=== PATIENT | female | born 1940 | race Caucasian/White ===

== ENCOUNTER 2020-09-02 11:58 | Outpatient (NON) | payer MEDICARE, MEDICAID, SELFPAY ==
[2020-09-02 13:27] LABS: BNP 120 pg/mL (0-100)
[2020-09-02 13:41] LABS: Alanine Aminotransferase 12 U/L (14-59); Albumin Level 3.4 g/dL (3.4-5.0); Alkaline Phosphatase 110 U/L (46-116); Anion Gap 9 mmol/L (8-16); Aspartate Amino Transferase 20 U/L (15-37); Bilirubin,Total 0.3 mg/dL (0.00-1.00); Blood Urea Nitrogen 15 mg/dL (7-18); Calcium 8.7 mg/dL (8.5-10.1); Carbon Dioxide 25 mmol/L (21-32); Chloride 104 mmol/L (98-108); Estimated Glomerular Filt Rate 53; Glucose 91 mg/dL (70-99); Osmolality Calculated 286 mOsm/kg (285-295); Potassium 4.4 mmol/L (3.5-5.1); Sodium 138 mmol/L (136-145); Total Protein 7.2 g/dL (6.4-8.2)
== END 2020-09-02 11:59 ==
LOC: CHSLAB 12:07
PROVIDERS: Visit Provider Internal Medicine
DX: I50.9 Heart failure, unspecified (principal)
CPT/HCPCS: 36415; 80053; 83880

== ENCOUNTER 2021-02-21 08:58 | Outpatient (NON) | payer MEDICARE, SELFPAY ==
[2021-02-21 09:23] LABS: Anion Gap 15 mmol/L (8-16); Blood Urea Nitrogen 18 mg/dL (7-18); Calcium 8.4 mg/dL (8.5-10.1); Carbon Dioxide 24 mmol/L (21-32); Chloride 102 mmol/L (98-108); Estimated Glomerular Filt Rate 45; Glucose 136 mg/dL (70-99); Osmolality Calculated 295 mOsm/kg (285-295); Potassium 3.9 mmol/L (3.5-5.1); Sodium 141 mmol/L (136-145)
== END 2021-02-21 08:59 | disposition home or self-care (01) ==
LOC: CHSLAB 09:00
PROVIDERS: Visit Provider Specialist
DX: I42.8 Other cardiomyopathies (principal); I10 Essential (primary) hypertension; I50.22 Chronic systolic (congestive) heart failure; R07.89 Other chest pain; R06.02 Shortness of breath
CPT/HCPCS: 36415; 80048

== ENCOUNTER 2021-03-02 11:41 | Outpatient (NON) | payer MEDICARE, SELFPAY ==
[2021-03-02 13:03] LABS: Basophils Absolute Auto 0.04 K/mm3 (0.00-0.10); Basophils Percent Auto 0.5 % (0.0-1.0); Eosinophils Absolute Auto 0.23 K/mm3 (0.02-0.50); Eosinophils Percent Auto 2.7 % (1.0-6.0); Hematocrit 42.6 % (35.0-42.0); Immature Granulocyte Absolute 0.03 K/mm3 (0.00-0.00); Immature Granulocyte Percent A 0.4 % (0.0-0.0); Lymphocytes Absolute Auto 1.11 K/mm3 (1.10-4.50); Lymphocytes Percent Auto 13.1 % (18.0-42.0); Mean Corpuscular HGB Conc 32.9 g/dL (32.0-36.0); Mean Corpuscular Hemoglobin 29.2 pg (27.0-31.0); Mean Corpuscular Volume 88.8 fL (78.0-102.0); Mean Platelet Volume 11.1 fl (9.2-11.8); Monocytes Absolute Auto 1.07 K/mm3 (0.10-0.90); Monocytes Percent Auto 12.6 % (2.0-11.0); Neutrophils Percent Auto 70.7 % (50.0-70.0); Platelet Count Result 256 K/mm3 (150-420); Red Cell Distribution Width 14.4 % (11.6-14.4); White Blood Count 8.5 K/mm3 (4.8-10.8)
[2021-03-02 13:26] LABS: Alanine Aminotransferase 16 U/L (14-59); Albumin Level 3.4 g/dL (3.4-5.0); Alkaline Phosphatase 103 U/L (46-116); Anion Gap 13 mmol/L (8-16); Aspartate Amino Transferase 19 U/L (15-37); Bilirubin,Total 0.4 mg/dL (0.00-1.00); Blood Urea Nitrogen 21 mg/dL (7-18); Calcium 9.1 mg/dL (8.5-10.1); Carbon Dioxide 23 mmol/L (21-32); Chloride 105 mmol/L (98-108); Estimated Glomerular Filt Rate 53; Glucose 86 mg/dL (70-99); Magnesium 2.3 mg/dL (1.8-2.4); NT Pro B Type Natriuretic Pept 1533 pg/mL (0-450); Osmolality Calculated 294 mOsm/kg (285-295); Potassium 4.4 mmol/L (3.5-5.1); Sodium 141 mmol/L (136-145)
== END 2021-03-02 11:42 | disposition home or self-care (01) ==
LOC: CHSLAB 11:43
PROVIDERS: Visit Provider Internal Medicine
DX: I50.9 Heart failure, unspecified (principal)
CPT/HCPCS: 36415; 80053; 83735; 83880; 85025

== ENCOUNTER 2021-03-14 11:09 | Outpatient (NON) | payer MEDICARE, SELFPAY ==
[2021-03-14 11:26] LABS: Basophils Absolute Auto 0.01 K/mm3 (0.00-0.10); Basophils Percent Auto 0.1 % (0.0-1.0); Eosinophils Absolute Auto 0.16 K/mm3 (0.02-0.50); Eosinophils Percent Auto 2.3 % (1.0-6.0); Hematocrit 42.9 % (35.0-42.0); Hemoglobin 13.9 g/dL (11.7-13.8); Immature Granulocyte Absolute 0.02 K/mm3 (0.00-0.00); Immature Granulocyte Percent A 0.3 % (0.0-0.0); Lymphocytes Absolute Auto 0.56 K/mm3 (1.10-4.50); Lymphocytes Percent Auto 8.1 % (18.0-42.0); Mean Corpuscular HGB Conc 32.4 g/dL (32.0-36.0); Mean Corpuscular Hemoglobin 29.1 pg (27.0-31.0); Mean Corpuscular Volume 89.7 fL (78.0-102.0); Mean Platelet Volume 10.5 fl (9.2-11.8); Monocytes Absolute Auto 0.58 K/mm3 (0.10-0.90); Monocytes Percent Auto 8.4 % (2.0-11.0); Neutrophils Absolute Auto 5.6 K/mm3 (1.7-7.2); Neutrophils Percent Auto 80.8 % (50.0-70.0); Platelet Count Result 219 K/mm3 (150-420); Red Blood Count 4.78 M/mm3 (4.20-5.40); Red Cell Distribution Width 14.1 % (11.6-14.4); White Blood Count 6.9 K/mm3 (4.8-10.8)
[2021-03-14 11:32] LABS: Prothrombin Time 10.3 Seconds (9.50-12.10)
[2021-03-14 11:38] LABS: Anion Gap 14 mmol/L (8-16); Blood Urea Nitrogen 15 mg/dL (7-18); Calcium 8.6 mg/dL (8.5-10.1); Carbon Dioxide 25 mmol/L (21-32); Chloride 102 mmol/L (98-108); Estimated Glomerular Filt Rate 57; Glucose 89 mg/dL (70-99); Osmolality Calculated 291 mOsm/kg (285-295); Potassium 3.9 mmol/L (3.5-5.1); Sodium 141 mmol/L (136-145)
== END 2021-03-14 11:10 | disposition home or self-care (01) ==
LOC: CHSLAB 11:12
PROVIDERS: Visit Provider Specialist
DX: I50.22 Chronic systolic (congestive) heart failure (principal); R94.39 Abnormal result of other cardiovascular function study; I51.9 Heart disease, unspecified; R07.89 Other chest pain; R06.02 Shortness of breath; Z95.810 Presence of automatic (implantable) cardiac defibrillator; I10 Essential (primary) hypertension
CPT/HCPCS: 36415; 80048; 83735; 85025; 85610

== ENCOUNTER 2021-04-03 10:00 | Outpatient (NON) | payer MEDICARE, SELFPAY ==
[2021-04-03 12:46] LABS: Anion Gap 11 mmol/L (8-16); Blood Urea Nitrogen 22 mg/dL (7-18); Calcium 8.5 mg/dL (8.5-10.1); Carbon Dioxide 26 mmol/L (21-32); Chloride 104 mmol/L (98-108); Estimated Glomerular Filt Rate 49; Glucose 92 mg/dL (70-99); Osmolality Calculated 295 mOsm/kg (285-295); Potassium 4.5 mmol/L (3.5-5.1); Sodium 141 mmol/L (136-145)
== END 2021-04-03 10:01 | disposition home or self-care (01) ==
LOC: CHSLAB 10:02
PROVIDERS: Visit Provider Internal Medicine Cardiovascular Disease
DX: Z79.899 Other long term (current) drug therapy (principal)
CPT/HCPCS: 36415; 80048

== ENCOUNTER 2021-04-12 08:45 | Outpatient (NON) | payer MEDICARE, SELFPAY ==
[2021-04-12 09:45] LABS: Anion Gap 10 mmol/L (8-16); Blood Urea Nitrogen 19 mg/dL (7-18); Calcium 8.6 mg/dL (8.5-10.1); Carbon Dioxide 25 mmol/L (21-32); Chloride 104 mmol/L (98-108); Estimated Glomerular Filt Rate 48; Glucose 95 mg/dL (70-99); Osmolality Calculated 290 mOsm/kg (285-295); Potassium 4.7 mmol/L (3.5-5.1); Sodium 139 mmol/L (136-145)
== END 2021-04-12 08:46 | disposition home or self-care (01) ==
LOC: CHSLAB 08:47
PROVIDERS: Visit Provider Internal Medicine Cardiovascular Disease
DX: I50.22 Chronic systolic (congestive) heart failure (principal); I42.8 Other cardiomyopathies
CPT/HCPCS: 36415; 80048

== ENCOUNTER 2021-10-16 13:20 | Outpatient (NON) | payer MEDICARE, SELFPAY ==
[2021-10-16 14:04] LABS: Basophils Absolute Auto 0.04 K/mm3 (0.00-0.10); Basophils Percent Auto 0.6 % (0.0-1.0); Eosinophils Absolute Auto 0.22 K/mm3 (0.02-0.50); Eosinophils Percent Auto 3.1 % (1.0-6.0); Hematocrit 46.2 % (35.0-42.0); Hemoglobin 15.1 g/dL (11.7-13.8); Immature Granulocyte Absolute 0.02 K/mm3 (0.00-0.00); Immature Granulocyte Percent A 0.3 % (0.0-0.0); Lymphocytes Absolute Auto 1.33 K/mm3 (1.10-4.50); Lymphocytes Percent Auto 18.9 % (18.0-42.0); Mean Corpuscular HGB Conc 32.7 g/dL (32.0-36.0); Mean Corpuscular Hemoglobin 30.6 pg (27.0-31.0); Mean Corpuscular Volume 93.5 fL (78.0-102.0); Mean Platelet Volume 11.6 fl (9.2-11.8); Monocytes Percent Auto 12.8 % (2.0-11.0); Neutrophils Absolute Auto 4.5 K/mm3 (1.7-7.2); Neutrophils Percent Auto 64.3 % (50.0-70.0); Platelet Count Result 231 K/mm3 (150-420); Red Blood Count 4.94 M/mm3 (4.20-5.40); Red Cell Distribution Width 13.6 % (11.6-14.4); White Blood Count 7.1 K/mm3 (4.8-10.8)
[2021-10-16 14:29] LABS: Alanine Aminotransferase 16 U/L (14-59); Albumin Level 3.6 g/dL (3.4-5.0); Alkaline Phosphatase 98 U/L (46-116); Anion Gap 12 mmol/L (8-16); Aspartate Amino Transferase 18 U/L (15-37); Bilirubin,Total 0.3 mg/dL (0.00-1.00); Blood Urea Nitrogen 19 mg/dL (7-18); Calcium 8.8 mg/dL (8.5-10.1); Carbon Dioxide 25 mmol/L (21-32); Chloride 104 mmol/L (98-108); Cholesterol 177 mg/dL (0-200); Estimated Glomerular Filt Rate 42; Glucose 102 mg/dL (70-99); HDL Direct 65 mg/dL (40-60); LDL Cholesterol Calculated 78 mg/dL (<130); NT Pro B Type Natriuretic Pept 1798 pg/mL (0-450); Osmolality Calculated 294 mOsm/kg (285-295); Potassium 4.5 mmol/L (3.5-5.1); Sodium 141 mmol/L (136-145); Thyroid Stimulating Hormone 1.72 uIU/mL (0.36-3.74); Total Protein 7.4 g/dL (6.4-8.2); Triglycerides 168 mg/dL (0-150)
== END 2021-10-16 13:21 | disposition home or self-care (01) ==
LOC: CHSLAB 13:21
PROVIDERS: Visit Provider Internal Medicine
DX: I50.9 Heart failure, unspecified (principal); I25.10 Atherosclerotic heart disease of native coronary artery without angina pectoris
CPT/HCPCS: 36415; 80053; 80061; 83880; 84443; 85025

== ENCOUNTER 2022-02-05 09:18 | Outpatient (NON) | payer MEDICARE, SELFPAY ==
[2022-02-05 09:38] LABS: Basophils Absolute Auto 0.05 K/mm3 (0.00-0.10); Basophils Percent Auto 0.8 % (0.0-1.0); Eosinophils Percent Auto 5.1 % (1.0-6.0); Hemoglobin 13.1 g/dL (11.7-13.8); Immature Granulocyte Absolute 0.01 K/mm3 (0.00-0.00); Immature Granulocyte Percent A 0.2 % (0.0-0.0); Lymphocytes Percent Auto 15.2 % (18.0-42.0); Mean Corpuscular HGB Conc 32.8 g/dL (32.0-36.0); Mean Corpuscular Hemoglobin 30.3 pg (27.0-31.0); Mean Corpuscular Volume 92.6 fL (78.0-102.0); Mean Platelet Volume 11.1 fl (9.2-11.8); Monocytes Absolute Auto 0.62 K/mm3 (0.10-0.90); Monocytes Percent Auto 10.4 % (2.0-11.0); Neutrophils Absolute Auto 4.1 K/mm3 (1.7-7.2); Neutrophils Percent Auto 68.3 % (50.0-70.0); Platelet Count Result 199 K/mm3 (150-420); Red Blood Count 4.32 M/mm3 (4.20-5.40); Red Cell Distribution Width 13.6 % (11.6-14.4); White Blood Count 5.9 K/mm3 (4.8-10.8)
[2022-02-05 09:55] LABS: Alanine Aminotransferase 12 U/L (14-59); Albumin Level 3.2 g/dL (3.4-5.0); Alkaline Phosphatase 90 U/L (46-116); Anion Gap 9 mmol/L (8-16); Aspartate Amino Transferase 18 U/L (15-37); Bilirubin,Total 0.5 mg/dL (0.00-1.00); Blood Urea Nitrogen 14 mg/dL (7-18); Calcium 8.3 mg/dL (8.5-10.1); Carbon Dioxide 23 mmol/L (21-32); Chloride 107 mmol/L (98-108); Cholesterol 130 mg/dL (0-200); Estimated Glomerular Filt Rate 48; Glucose 94 mg/dL (70-99); HDL Direct 51 mg/dL (40-60); LDL Cholesterol Calculated 58 mg/dL (<130); Magnesium 2.2 mg/dL (1.8-2.4); NT Pro B Type Natriuretic Pept 1707 pg/mL (0-450); Osmolality Calculated 288 mOsm/kg (285-295); Potassium 3.8 mmol/L (3.5-5.1); Sodium 139 mmol/L (136-145); Total Protein 6.4 g/dL (6.4-8.2); Triglycerides 106 mg/dL (0-150)
== END 2022-02-05 09:19 | disposition home or self-care (01) ==
LOC: CHSLAB 09:20
PROVIDERS: PCP Internal Medicine; Visit Provider Internal Medicine
DX: I25.10 Atherosclerotic heart disease of native coronary artery without angina pectoris (principal); I50.9 Heart failure, unspecified; Z79.899 Other long term (current) drug therapy
CPT/HCPCS: 36415; 80053; 80061; 83735; 83880; 85025

== ENCOUNTER 2022-04-20 10:35 | Outpatient (NON) | payer MEDICARE, SELFPAY ==
[2022-04-20 11:21] LABS: Basophils Absolute Auto 0.03 K/mm3 (0.00-0.10); Basophils Percent Auto 0.3 % (0.0-1.0); Eosinophils Absolute Auto 0.26 K/mm3 (0.02-0.50); Eosinophils Percent Auto 2.7 % (1.0-6.0); Hematocrit 46.1 % (35.0-42.0); Hemoglobin 14.7 g/dL (11.7-13.8); Immature Granulocyte Absolute 0.06 K/mm3 (0.00-0.00); Immature Granulocyte Percent A 0.6 % (0.0-0.0); Lymphocytes Absolute Auto 2.36 K/mm3 (1.10-4.50); Lymphocytes Percent Auto 24.4 % (18.0-42.0); Mean Corpuscular HGB Conc 31.9 g/dL (32.0-36.0); Mean Corpuscular Hemoglobin 29.9 pg (27.0-31.0); Mean Corpuscular Volume 93.9 fL (78.0-102.0); Mean Platelet Volume 11.2 fl (9.2-11.8); Monocytes Absolute Auto 0.98 K/mm3 (0.10-0.90); Monocytes Percent Auto 10.1 % (2.0-11.0); Neutrophils Percent Auto 61.9 % (50.0-70.0); Platelet Count Result 241 K/mm3 (150-420); Red Blood Count 4.91 M/mm3 (4.20-5.40); Red Cell Distribution Width 14.1 % (11.6-14.4); White Blood Count 9.7 K/mm3 (4.8-10.8)
[2022-04-20 11:34] LABS: Alanine Aminotransferase 15 U/L (14-59); Albumin Level 3.2 g/dL (3.4-5.0); Alkaline Phosphatase 88 U/L (46-116); Anion Gap 12 mmol/L (8-16); Aspartate Amino Transferase 16 U/L (15-37); Bilirubin,Total 0.6 mg/dL (0.00-1.00); Blood Urea Nitrogen 27 mg/dL (7-18); Calcium 8.7 mg/dL (8.5-10.1); Carbon Dioxide 25 mmol/L (21-32); Chloride 106 mmol/L (98-108); Cholesterol 174 mg/dL (0-200); Estimated Glomerular Filt Rate 47; Glucose 84 mg/dL (70-99); HDL Direct 68 mg/dL (40-60); LDL Cholesterol Calculated 79 mg/dL (<130); Osmolality Calculated 300 mOsm/kg (285-295); Potassium 4.3 mmol/L (3.5-5.1); Sodium 143 mmol/L (136-145); Total Protein 6.3 g/dL (6.4-8.2); Triglycerides 133 mg/dL (0-150)
[2022-04-25 12:33] LABS: Vitamin D 25 Hydroxy 23 ng/mL (30-100)
== END 2022-04-20 10:36 | disposition home or self-care (01) ==
PROVIDERS: Visit Provider Internal Medicine Hematology & Oncology
DX: C50.919 Malignant neoplasm of unspecified site of unspecified female breast (principal); Z79.899 Other long term (current) drug therapy
CPT/HCPCS: 36415; 80053; 80061; 82306; 85025

== ENCOUNTER 2022-05-10 09:33 | Outpatient (NON) | payer MEDICARE, SELFPAY ==
[2022-05-10 09:55] LABS: Basophils Absolute Auto 0.07 K/mm3 (0.00-0.10); Basophils Percent Auto 1.3 % (0.0-1.0); Eosinophils Absolute Auto 0.24 K/mm3 (0.02-0.50); Eosinophils Percent Auto 4.5 % (1.0-6.0); Hematocrit 41.4 % (35.0-42.0); Immature Granulocyte Absolute 0.02 K/mm3 (0.00-0.00); Immature Granulocyte Percent A 0.4 % (0.0-0.0); Lymphocytes Absolute Auto 0.99 K/mm3 (1.10-4.50); Lymphocytes Percent Auto 18.5 % (18.0-42.0); Mean Corpuscular HGB Conc 31.4 g/dL (32.0-36.0); Mean Corpuscular Hemoglobin 29.5 pg (27.0-31.0); Mean Corpuscular Volume 94.1 fL (78.0-102.0); Mean Platelet Volume 11.3 fl (9.2-11.8); Monocytes Absolute Auto 0.66 K/mm3 (0.10-0.90); Monocytes Percent Auto 12.3 % (2.0-11.0); Neutrophils Absolute Auto 3.4 K/mm3 (1.7-7.2); Platelet Count Result 295 K/mm3 (150-420); Red Cell Distribution Width 13.7 % (11.6-14.4); White Blood Count 5.4 K/mm3 (4.8-10.8)
[2022-05-10 10:24] LABS: Alanine Aminotransferase 14 U/L (14-59); Albumin Level 3.1 g/dL (3.4-5.0); Alkaline Phosphatase 87 U/L (46-116); Anion Gap 10 mmol/L (8-16); Aspartate Amino Transferase 20 U/L (15-37); Bilirubin,Total 0.5 mg/dL (0.00-1.00); Blood Urea Nitrogen 15 mg/dL (7-18); Calcium 8.3 mg/dL (8.5-10.1); Carbon Dioxide 26 mmol/L (21-32); Chloride 105 mmol/L (98-108); Estimated Glomerular Filt Rate 53; Glucose 120 mg/dL (70-99); NT Pro B Type Natriuretic Pept 1975 pg/mL (0-450); Osmolality Calculated 293 mOsm/kg (285-295); Potassium 3.8 mmol/L (3.5-5.1); Sodium 141 mmol/L (136-145); Total Protein 5.9 g/dL (6.4-8.2)
== END 2022-05-10 09:34 | disposition home or self-care (01) ==
LOC: CHSLAB 09:35
PROVIDERS: Visit Provider Internal Medicine
DX: I50.9 Heart failure, unspecified (principal)
CPT/HCPCS: 80053; 83735; 83880; 85025

== ENCOUNTER 2022-05-18 09:12 | Outpatient (NON) | payer MEDICARE, SELFPAY ==
[2022-05-18 09:38] LABS: Alanine Aminotransferase 12 U/L (14-59); Albumin Level 3.2 g/dL (3.4-5.0); Alkaline Phosphatase 92 U/L (46-116); Anion Gap 11 mmol/L (8-16); Aspartate Amino Transferase 18 U/L (15-37); Bilirubin,Total 0.6 mg/dL (0.00-1.00); Blood Urea Nitrogen 13 mg/dL (7-18); Calcium 8.5 mg/dL (8.5-10.1); Carbon Dioxide 24 mmol/L (21-32); Chloride 107 mmol/L (98-108); Estimated Glomerular Filt Rate 50; Glucose 103 mg/dL (70-99); NT Pro B Type Natriuretic Pept 2434 pg/mL (0-450); Osmolality Calculated 294 mOsm/kg (285-295); Potassium 4.1 mmol/L (3.5-5.1); Sodium 142 mmol/L (136-145); Total Protein 6.1 g/dL (6.4-8.2)
== END 2022-05-18 09:13 | disposition home or self-care (01) ==
LOC: CHSLAB 09:13
PROVIDERS: Visit Provider Internal Medicine
DX: I50.9 Heart failure, unspecified (principal)
CPT/HCPCS: 80053; 83880

== ENCOUNTER 2022-05-25 11:50 | Outpatient (NON) | payer MEDICARE, SELFPAY ==
[2022-05-25 12:33] LABS: Alanine Aminotransferase 14 U/L (14-59); Albumin Level 3.3 g/dL (3.4-5.0); Alkaline Phosphatase 95 U/L (46-116); Anion Gap 10 mmol/L (8-16); Aspartate Amino Transferase 20 U/L (15-37); Bilirubin,Total 0.8 mg/dL (0.00-1.00); Blood Urea Nitrogen 11 mg/dL (7-18); Calcium 8.5 mg/dL (8.5-10.1); Carbon Dioxide 24 mmol/L (21-32); Chloride 109 mmol/L (98-108); Estimated Glomerular Filt Rate 55; Glucose 100 mg/dL (70-99); NT Pro B Type Natriuretic Pept 6250 pg/mL (0-450); Osmolality Calculated 295 mOsm/kg (285-295); Potassium 4.8 mmol/L (3.5-5.1); Sodium 143 mmol/L (136-145); Total Protein 6.2 g/dL (6.4-8.2)
== END 2022-05-25 11:51 | disposition home or self-care (01) ==
LOC: CHSLAB 11:53
PROVIDERS: PCP Internal Medicine; Visit Provider Internal Medicine
DX: I50.9 Heart failure, unspecified (principal)
CPT/HCPCS: 80053; 83880

== ENCOUNTER 2022-06-06 09:39 | Outpatient (NON) | payer MEDICARE, SELFPAY ==
[2022-06-06 10:30] LABS: Alanine Aminotransferase 13 U/L (14-59); Albumin Level 3.3 g/dL (3.4-5.0); Alkaline Phosphatase 90 U/L (46-116); Anion Gap 10 mmol/L (8-16); Aspartate Amino Transferase 21 U/L (15-37); Bilirubin,Total 0.7 mg/dL (0.00-1.00); Blood Urea Nitrogen 17 mg/dL (7-18); Calcium 8.7 mg/dL (8.5-10.1); Carbon Dioxide 26 mmol/L (21-32); Chloride 103 mmol/L (98-108); Estimated Glomerular Filt Rate 54; Glucose 96 mg/dL (70-99); NT Pro B Type Natriuretic Pept 2532 pg/mL (0-450); Osmolality Calculated 289 mOsm/kg (285-295); Potassium 4.2 mmol/L (3.5-5.1); Sodium 139 mmol/L (136-145); Total Protein 7.2 g/dL (6.4-8.2)
== END 2022-06-06 09:40 | disposition home or self-care (01) ==
LOC: CHSLAB 09:40
PROVIDERS: Visit Provider Internal Medicine
DX: I50.1 Left ventricular failure, unspecified (principal)
CPT/HCPCS: 36415; 80053; 83880

== ENCOUNTER 2022-06-21 09:28 | Outpatient (NON) | payer MEDICARE, MEDICAID, SELFPAY ==
[2022-06-21 10:19] LABS: Alanine Aminotransferase 13 U/L (14-59); Albumin Level 3.4 g/dL (3.4-5.0); Alkaline Phosphatase 92 U/L (46-116); Anion Gap 9 mmol/L (8-16); Aspartate Amino Transferase 21 U/L (15-37); Bilirubin,Total 0.8 mg/dL (0.00-1.00); Blood Urea Nitrogen 19 mg/dL (7-18); Calcium 8.7 mg/dL (8.5-10.1); Carbon Dioxide 26 mmol/L (21-32); Chloride 106 mmol/L (98-108); Estimated Glomerular Filt Rate 50; Glucose 90 mg/dL (70-99); NT Pro B Type Natriuretic Pept 1925 pg/mL (0-450); Osmolality Calculated 294 mOsm/kg (285-295); Potassium 4.3 mmol/L (3.5-5.1); Sodium 141 mmol/L (136-145); Total Protein 6.6 g/dL (6.4-8.2)
== END 2022-06-21 09:29 | disposition home or self-care (01) ==
LOC: CHSLAB 09:31
PROVIDERS: Visit Provider Internal Medicine
DX: I50.9 Heart failure, unspecified (principal)
CPT/HCPCS: 80053; 83880

== ENCOUNTER 2022-07-04 09:06 | Outpatient (NON) | payer MEDICARE, MEDICAID, SELFPAY ==
[2022-07-04 10:01] LABS: Alanine Aminotransferase 13 U/L (14-59); Albumin Level 3.3 g/dL (3.4-5.0); Alkaline Phosphatase 89 U/L (46-116); Anion Gap 7 mmol/L (8-16); Aspartate Amino Transferase 19 U/L (15-37); Bilirubin,Total 0.6 mg/dL (0.00-1.00); Blood Urea Nitrogen 19 mg/dL (7-18); Calcium 8.7 mg/dL (8.5-10.1); Carbon Dioxide 29 mmol/L (21-32); Chloride 106 mmol/L (98-108); Estimated Glomerular Filt Rate 51; Glucose 101 mg/dL (70-99); NT Pro B Type Natriuretic Pept 2320 pg/mL (0-450); Osmolality Calculated 296 mOsm/kg (285-295); Potassium 4.3 mmol/L (3.5-5.1); Sodium 142 mmol/L (136-145); Total Protein 7.2 g/dL (6.4-8.2)
== END 2022-07-04 09:07 | disposition home or self-care (01) ==
LOC: CHSLAB 09:09
PROVIDERS: Visit Provider Internal Medicine
DX: I25.10 Atherosclerotic heart disease of native coronary artery without angina pectoris (principal); I50.9 Heart failure, unspecified
CPT/HCPCS: 80053; 83880

== ENCOUNTER 2022-07-17 09:01 | Outpatient (NON) | payer MEDICARE, MEDICAID, SELFPAY ==
[2022-07-17 09:57] LABS: Alanine Aminotransferase 15 U/L (14-59); Albumin Level 3.5 g/dL (3.4-5.0); Alkaline Phosphatase 93 U/L (46-116); Anion Gap 11 mmol/L (8-16); Aspartate Amino Transferase 18 U/L (15-37); Bilirubin,Total 0.6 mg/dL (0.00-1.00); Blood Urea Nitrogen 17 mg/dL (7-18); Calcium 8.9 mg/dL (8.5-10.1); Carbon Dioxide 26 mmol/L (21-32); Chloride 105 mmol/L (98-108); Digoxin 0.6 ng/mL (0.9-2.0); Estimated Glomerular Filt Rate 42; Glucose 145 mg/dL (70-99); NT Pro B Type Natriuretic Pept 1668 pg/mL (0-450); Osmolality Calculated 298 mOsm/kg (285-295); Potassium 4.5 mmol/L (3.5-5.1); Sodium 142 mmol/L (136-145); Total Protein 6.9 g/dL (6.4-8.2)
== END 2022-07-17 09:02 | disposition home or self-care (01) ==
LOC: CHSLAB 09:04
PROVIDERS: Visit Provider Internal Medicine
DX: I50.9 Heart failure, unspecified (principal)
CPT/HCPCS: 36415; 80053; 80162; 83880

== ENCOUNTER 2022-07-30 10:14 | Outpatient (NON) | payer MEDICARE, MEDICAID, SELFPAY ==
[2022-07-30 11:19] LABS: Alanine Aminotransferase 16 U/L (14-59); Albumin Level 3.2 g/dL (3.4-5.0); Alkaline Phosphatase 88 U/L (46-116); Anion Gap 12 mmol/L (8-16); Aspartate Amino Transferase 23 U/L (15-37); Bilirubin,Total 0.7 mg/dL (0.00-1.00); Blood Urea Nitrogen 11 mg/dL (7-18); Calcium 8.6 mg/dL (8.5-10.1); Carbon Dioxide 26 mmol/L (21-32); Chloride 104 mmol/L (98-108); Digoxin 0.7 ng/mL (0.9-2.0); Estimated Glomerular Filt Rate 54; Glucose 98 mg/dL (70-99); NT Pro B Type Natriuretic Pept 3759 pg/mL (0-450); Osmolality Calculated 293 mOsm/kg (285-295); Potassium 4.2 mmol/L (3.5-5.1); Sodium 142 mmol/L (136-145); Total Protein 6.5 g/dL (6.4-8.2)
== END 2022-07-30 10:15 | disposition home or self-care (01) ==
LOC: CHSLAB 10:17
PROVIDERS: Visit Provider Internal Medicine
DX: I50.9 Heart failure, unspecified (principal)
CPT/HCPCS: 36415; 80053; 80162; 83880

== ENCOUNTER 2022-10-16 08:20 | Outpatient (CLI) | payer MEDICARE, MEDICAID, SELFPAY ==
--- NOTE | ~2022-10-16 | MMUS_ITS ---
EXAMINATION: MM diagnostic sanchez BI w bea, US breast BI limited HISTORY: Bilateral breast cancer; evaluate response to oral chemotherapeutic agent TECHNIQUE: Bilateral full field ML, MLO and CC 3-D tomosynthesis images were performed and synthetic 2-D images were generated. CAD analysis was submitted and interpreted. High resolution targeted right 6:00 and left central breast ultrasound examination and left axillary ultrasound examination were pe rformed.. COMPARISON: 03/07/2022 [facility] [place] mammogram BREAST PARENCHYMAL COMPOSITION: There are scattered areas of fibroglandular density. FINDINGS: MAMMOGRAPHIC FINDINGS: There is substantial interval diminished size of left central breast spiculated mass lesion, currentl y measuring approximately 9 x 20 mm versus 1.5 x 22 cm on 03/07/2022 CC views. The left axillary region is obscured by a pacemaker device and is not able to be evaluated as result. Approximately 3.3 x 8.6 mm opacity on MLO view is noted at 6:00 position of the right breast, with a biopsy marker. This measures up to approximately 2.8 x 7.2 mm on 03/07/2022 MLO view. The mildly incre ased size may be due to interval enlargement of malignancy versus postbiopsy change (hematoma, scarri ng). A nodular density in the right axillary tail area currently measures 3.3 x 3.3 mm compared to 4 x 4 m m on 03/07/2022, likely representing mildly diminished size of a right axillary tail lymph node. ULTRASOUND: Right breast: 6:00 near nipple: There is an irregular hypoechoic solid mass measuring 10.8 x 22.8 x 8.5 mm and an a djacent 2.2 x 2.6 mm hypoechoic nodular density. 11.6 x 13 x 13.6 mm right axillary node, possibly metastatic. Left breast: Approximately 5 x 18.2 x 12 mm irregular central hypoechoic mass corresponding to the ma mmographic spiculated lesion IMPRESSION: Known bilateral breast malignancy Diminished size of the left breast malignancy since 03/07/2022. Diminished size of a right axillary tail probable lymph node since 03/07/2022 Probable metastatic 11.6 x 13 x 13.6 mm right axillary lymph node Interval moderately increased prominence of right breast 6:00 lesion which may be due to interval adv ancement of malignancy versus postbiopsy hematoma/scarring BI-RADS Category 6, known bilateral breast malignancy Reviewed, dictated and finalized at location A. A'S HELPER IMPRESSION: Known bilateral breast malignancy Diminished size of the left breast malignancy since 03/07/2022. Diminished size of a right axillary tail probable lymph node since 03/07/2022 Probable metastatic 11.6 x 13 x 13.6 mm right axillary lymph node Interval moderately increased prominence of right breast 6:00 lesion which may be due to interval advancement of malignancy versus postbiopsy hematoma/scarrin g BI-RADS Category 6, known bilateral breast malignancy
--- NOTE | ~2022-10-16 | DEXA_ITS ---
Bone Density Report Name: KARL COATES Age: 82 Sex: Female Ethnicity: White Date of : 1940 Indication: postmenopausal; screening for osteoporosis; parental hip fracture; height loss; cancer; Referring Provider: UNKNOWN, UNKNOWN Study: Bone densitometry was performed. Exam Date: October 16, 2022 Accession number: [id number] Bone Density: Region BMD T-score Z-score Classification AP Spine(L1-L4) 0.899 -1.3 1.4 Osteopenia Femoral Neck (Left) 0.495 -3.2 -0.8 Osteoporosis Total Hip (Left) 0.643 -2.4 -0.3 Osteopenia Femoral Neck (Right) 0.613 -2.1 0.2 Osteopenia Total Hip (Right) 0.700 -2.0 0.2 Osteopenia Femoral Neck Mean 0.554 -2.7 -0.3 Osteoporosis Total Hip Mean 0.672 -2.2 -0.1 Osteopenia World Health Organization criteria for BMD impression classify patients as: Normal (T-score at or above -1.0), Osteopenia (T-score between -1.0 and -2.5), or Osteoporosis (T-score at or below -2.5). 10-year Fracture Risk: FRAX not reported because: Some T-score for Spine Total or Hip Total or Femoral Neck at or below -2.5 Clinical Information Provided by Patient: Parent has had a hip fracture Has used the following medications: Vitamin D Has the following medical conditions: Cancer, chf Patient maximum height was 60 Menopause Age: 46 No regular weight bearing exercise Drinks caffeinated beverages Onset of menses at age 14 Number of children 3 Impression: The patient has osteoporosis, based on the Left Femoral Neck T-score. The patient has risk factors, including: parental hip fracture. Discussion: INCREASED RISK OF FRACTURE. BONE DENSITY IS UNDESIRABLY LOW AT ONE OR MORE SKELETAL SITES, CONSISTENT WITH POSTMENOPAUSAL OSTEOPOROSIS. This patient's lowest T-score meets the World Health Organization's (WHO) criteria for osteoporosis at one or more sites (T-score -2.5 or below). In untreated patients, the risk of osteoporotic fracture increases approximately two-fold for each 1.0 SD decrease in T-score. Low bone density is not the only risk factor for fracture; also consider factors such as patient's age, frailty or poor health, risk of falling, risk of injury, previous osteoporotic fracture, family history of osteoporosis, cigarette smoking, low body weight, etc. Not everyone with low bone mineral density has osteoporosis; osteomalacia and other metabolic bone disorders should also be considered. Patients who have osteoporosis should be evaluated for specific diseases and conditions (secondary causes) that may cause or contribute to bone loss. The [place] [employer]ocrinologists (AACE) and National Osteoporosis Foundation (NOF) recommend pharmacologic intervention for all postmenopausal women whose T-score is in this range. The patient should follow a healthful lifesty
== END 2022-10-16 08:21 | disposition home or self-care (01) ==
PROVIDERS: PCP Internal Medicine
DX: R92.8 Other abnormal and inconclusive findings on diagnostic imaging of breast (principal); Z78.0 Asymptomatic menopausal state; M85.89 Other specified disorders of bone density and structure, multiple sites; M81.0 Age-related osteoporosis without current pathological fracture; C50.912 Malignant neoplasm of unspecified site of left female breast; C50.911 Malignant neoplasm of unspecified site of right female breast
CPT/HCPCS: 76642; 77062; 77066; 77080; G0279

== ENCOUNTER 2022-11-13 09:43 | Outpatient (CLI) | payer MEDICARE, MEDICAID, SELFPAY ==
[2022-11-13 09:52] VITALS: BMI 34.9
[2022-11-13 10:06] VITALS: BP 123/73; PULSE 72; RESP 16; TEMP 36.7; O2SAT 98
[2022-11-13 10:21] LABS: Estimated CRCL calculation 34 ml/min; Estimated Glomerular Filt Rate 48
[2022-11-13] MEDS: SODIUM CHLORIDE 0.9% IVPB (11:00)
[2022-11-13] MEDS: ZOLEDRONIC ACID IVPB (11:00)
[2022-11-13] MEDS: HEPARIN SODIUM LOCK FLUSH 500 UNITS/5 ML SYRINGE IV PUSH (11:06)
--- NOTE | 2022-11-13 11:18 | PC.NURSE ---
Patient here for Zometa IV infusion. Education given. No concerns voiced. Lab/creatinine drawn. Mediation adjusted to Creatinine Clearance. IV Zometa administered SEE MAR. Tolerated well. Safe exit of hospital.
== END 2022-11-13 09:44 | disposition home or self-care (01) ==
PROVIDERS: PCP Internal Medicine
DX: C50.012 Malignant neoplasm of nipple and areola, left female breast (principal)
CPT/HCPCS: 36415; 82565; 96365; J3489

== ENCOUNTER 2022-11-23 09:48 | Outpatient (CLI) | payer MEDICARE, SELFPAY ==
--- NOTE | ~2022-11-23 | XR_ITS ---
EXAMINATION: XR chest 2V DATE: 11/23/2022 10:20 INDICATION: One week of severe dyspnea with exertion. Cardiomyopathy. TECHNIQUE: PA and lateral views of the chest were obtained. COMPARISON: Chest radiograph dated 05/12/2018 FINDINGS: Right internal jugular central venous port catheter with distal tip at the caudal superior vena cava. Opacities at the bilateral lower lung zones. Small bilateral pleural effusions with blunting at the costophrenic angles and posterior sulci. No pneumothorax. Mild cardiomegaly. Dual lead pacemaker/AICD seen with leads projecting over the expected locations of the right atrium and right ventricle.. The re are bridging osteophytes at multiple levels in the spine, consistent with diffuse idiopathic skele pooja hyperostosis (DISH). IMPRESSION: 1. Mild opacities at the bilateral lower lung zones which could represent mild pulmonary edema, atele ctasis or pneumonia. 2. Small bilateral pleural effusions. 3. Cardiomegaly. Reviewed, dictated and finalized at location A. IMPRESSION: 1. Mild opacities at the bilateral lower lung zones which could represent mild pulmonary edema, atelectasis or pneumonia. 2. Small bilateral pleural effusions. 3. Cardiomegaly.
[2022-11-23 10:08] LABS: Basophils Absolute Auto 0.07 K/mm3 (0.00-0.10); Basophils Percent Auto 0.9 % (0.0-1.0); Eosinophils Absolute Auto 0.29 K/mm3 (0.02-0.50); Eosinophils Percent Auto 3.6 % (1.0-6.0); Hematocrit 40.5 % (35.0-42.0); Hemoglobin 13.1 g/dL (11.7-13.8); Immature Granulocyte Absolute 0.03 K/mm3 (0.00-0.00); Immature Granulocyte Percent A 0.4 % (0.0-0.0); Lymphocytes Absolute Auto 1.13 K/mm3 (1.10-4.50); Lymphocytes Percent Auto 14.1 % (18.0-42.0); Mean Corpuscular HGB Conc 32.3 g/dL (32.0-36.0); Mean Corpuscular Hemoglobin 29.4 pg (27.0-31.0); Mean Platelet Volume 10.2 fl (9.2-11.8); Monocytes Absolute Auto 0.65 K/mm3 (0.10-0.90); Monocytes Percent Auto 8.1 % (2.0-11.0); Neutrophils Absolute Auto 5.8 K/mm3 (1.7-7.2); Neutrophils Percent Auto 72.9 % (50.0-70.0); Platelet Count Result 250 K/mm3 (150-420); Red Blood Count 4.45 M/mm3 (4.20-5.40); Red Cell Distribution Width 14.6 % (11.6-14.4)
[2022-11-23 10:56] LABS: Alanine Aminotransferase 17 U/L (14-59); Albumin Level 3.2 g/dL (3.4-5.0); Alkaline Phosphatase 101 U/L (46-116); Anion Gap 10 mmol/L (8-16); Aspartate Amino Transferase 15 U/L (15-37); Bilirubin,Total 0.6 mg/dL (0.00-1.00); Blood Urea Nitrogen 19 mg/dL (7-18); Calcium 8.5 mg/dL (8.5-10.1); Carbon Dioxide 26 mmol/L (21-32); Chloride 106 mmol/L (98-108); Creatine Kinase 34 U/L (26-192); Estimated Glomerular Filt Rate 44; Glucose 123 mg/dL (70-99); Magnesium 2.1 mg/dL (1.8-2.4); NT Pro B Type Natriuretic Pept 4171 pg/mL (0-450); Osmolality Calculated 297 mOsm/kg (285-295); Potassium 4.8 mmol/L (3.5-5.1); Sodium 142 mmol/L (136-145); Total Protein 6.8 g/dL (6.4-8.2); Troponin I 19.3 ng/L (0.00-60.4)
== END 2022-11-23 09:49 | disposition home or self-care (01) ==
PROVIDERS: PCP Internal Medicine; Visit Provider Internal Medicine
DX: R06.00 Dyspnea, unspecified (principal); I42.9 Cardiomyopathy, unspecified; R91.8 Other nonspecific abnormal finding of lung field; J90 Pleural effusion, not elsewhere classified; I51.7 Cardiomegaly
CPT/HCPCS: 36415; 71046; 80053; 82550; 82553; 83735; 83880; 84484; 85025

== ENCOUNTER 2023-01-18 09:29 | Outpatient (NON) | payer MEDICARE, SELFPAY ==
[2023-01-18 10:07] LABS: Albumin Level 3.2 g/dL (3.4-5.0); Alkaline Phosphatase 87 U/L (46-116); Anion Gap 9 mmol/L (8-16); Aspartate Amino Transferase 24 U/L (15-37); Bilirubin,Total 0.5 mg/dL (0.00-1.00); Blood Urea Nitrogen 22 mg/dL (7-18); Calcium 8.7 mg/dL (8.5-10.1); Carbon Dioxide 27 mmol/L (21-32); Chloride 106 mmol/L (98-108); Digoxin 0.7 ng/mL (0.9-2.0); Estimated Glomerular Filt Rate 52; Glucose 92 mg/dL (70-99); Magnesium 2.2 mg/dL (1.8-2.4); NT Pro B Type Natriuretic Pept 1894 pg/mL (0-450); Osmolality Calculated 297 mOsm/kg (285-295); Potassium 4.8 mmol/L (3.5-5.1); Sodium 142 mmol/L (136-145); Total Protein 6.6 g/dL (6.4-8.2)
[2023-01-18 10:13] LABS: Alanine Aminotransferase < 6 U/L (14-59)
== END 2023-01-18 09:30 | disposition home or self-care (01) ==
LOC: CHSLAB 09:36
PROVIDERS: Visit Provider Internal Medicine
DX: I50.9 Heart failure, unspecified (principal)
CPT/HCPCS: 80053; 80162; 83735; 83880

== ENCOUNTER 2023-01-30 15:50 | Outpatient (NON) | payer MEDICARE, SELFPAY ==
[2023-01-31 16:19] LABS: Anion Gap 7 mmol/L (8-16); Bilirubin,Total 0.4 mg/dL (0.00-1.00); Blood Urea Nitrogen 18 mg/dL (7-18); Calcium 8.8 mg/dL (8.5-10.1); Carbon Dioxide 28 mmol/L (21-32); Chloride 106 mmol/L (98-108); Estimated Glomerular Filt Rate 50; Glucose 104 mg/dL (70-99); Osmolality Calculated 293 mOsm/kg (285-295); Potassium 4.7 mmol/L (3.5-5.1); Sodium 141 mmol/L (136-145)
[2023-01-31 16:20] LABS: Alanine Aminotransferase 19 U/L (14-59); Albumin Level 3.3 g/dL (3.4-5.0); Alkaline Phosphatase 90 U/L (46-116); Aspartate Amino Transferase 28 U/L (15-37); Digoxin 0.9 ng/mL (0.9-2.0); NT Pro B Type Natriuretic Pept 1344 pg/mL (0-450); Total Protein 6.9 g/dL (6.4-8.2)
[2023-01-31 16:21] LABS: Basophils Absolute Auto 0.05 K/mm3 (0.00-0.10); Basophils Percent Auto 0.8 % (0.0-1.0); Eosinophils Absolute Auto 0.28 K/mm3 (0.02-0.50); Eosinophils Percent Auto 4.6 % (1.0-6.0); Hematocrit 43.3 % (35.0-42.0); Hemoglobin 13.7 g/dL (11.7-13.8); Immature Granulocyte Absolute 0.02 K/mm3 (0.00-0.00); Immature Granulocyte Percent A 0.3 % (0.0-0.0); Lymphocytes Absolute Auto 1.19 K/mm3 (1.10-4.50); Lymphocytes Percent Auto 19.4 % (18.0-42.0); Mean Corpuscular HGB Conc 31.6 g/dL (32.0-36.0); Mean Corpuscular Hemoglobin 28.8 pg (27.0-31.0); Mean Corpuscular Volume 91.2 fL (78.0-102.0); Mean Platelet Volume 10.7 fl (9.2-11.8); Monocytes Absolute Auto 0.68 K/mm3 (0.10-0.90); Monocytes Percent Auto 11.1 % (2.0-11.0); Neutrophils Absolute Auto 3.9 K/mm3 (1.7-7.2); Neutrophils Percent Auto 63.8 % (50.0-70.0); Platelet Count Result 231 K/mm3 (150-420); Red Blood Count 4.75 M/mm3 (4.20-5.40); Red Cell Distribution Width 13.6 % (11.6-14.4); White Blood Count 6.1 K/mm3 (4.8-10.8)
== END 2023-01-30 15:51 | disposition home or self-care (01) ==
LOC: CHSLAB 01-31 15:53
PROVIDERS: Visit Provider Internal Medicine
DX: I50.9 Heart failure, unspecified (principal); J96.01 Acute respiratory failure with hypoxia
CPT/HCPCS: 36415; 80053; 80162; 83880; 85025

== ENCOUNTER 2023-02-13 09:47 | Outpatient (NON) | payer MEDICARE, SELFPAY ==
[2023-02-13 10:33] LABS: Alanine Aminotransferase 19 U/L (14-59); Alkaline Phosphatase 82 U/L (46-116); Anion Gap 9 mmol/L (8-16); Aspartate Amino Transferase 23 U/L (15-37); Bilirubin,Total 0.4 mg/dL (0.00-1.00); Blood Urea Nitrogen 15 mg/dL (7-18); Calcium 8.4 mg/dL (8.5-10.1); Carbon Dioxide 26 mmol/L (21-32); Chloride 105 mmol/L (98-108); Digoxin 0.4 ng/mL (0.9-2.0); Estimated Glomerular Filt Rate 59; Glucose 98 mg/dL (70-99); Magnesium 2.1 mg/dL (1.8-2.4); NT Pro B Type Natriuretic Pept 1154 pg/mL (0-450); Osmolality Calculated 290 mOsm/kg (285-295); Potassium 4.5 mmol/L (3.5-5.1); Sodium 140 mmol/L (136-145); Total Protein 6.4 g/dL (6.4-8.2)
== END 2023-02-13 09:48 | disposition home or self-care (01) ==
LOC: CHSLAB 09:48
PROVIDERS: Visit Provider Internal Medicine
DX: I50.9 Heart failure, unspecified (principal); E61.2 Magnesium deficiency
CPT/HCPCS: 80053; 80162; 83735; 83880

== ENCOUNTER 2023-02-20 11:15 | Outpatient (CLI) | payer MEDICARE, MEDICAID, SELFPAY ==
[2023-02-20] MEDS: HEPARIN SODIUM LOCK FLUSH 500 UNITS/5 ML SYRINGE IV PUSH (11:38)
== END 2023-02-20 11:16 | disposition home or self-care (01) ==
LOC: CHSTREATRM 11:18
PROVIDERS: PCP Internal Medicine; Visit Provider Internal Medicine
DX: Z45.2 Encounter for adjustment and management of vascular access device (principal); C50.919 Malignant neoplasm of unspecified site of unspecified female breast
CPT/HCPCS: 96523

== ENCOUNTER 2023-03-12 08:39 | Emergency (ER) | payer MEDICARE, MEDICAID, SELFPAY ==
[2023-03-12] VITALS (40 sets, daily range): BP systolic 82–156; BP diastolic 58–98; PULSE 112–139; RESP 14–52; TEMP 36.7; O2SAT 87–99
--- NOTE | ~2023-03-12 | CT_ITS ---
EXAMINATION: CTA chest PE protocol DATE: 03/12/2023 11:00 INDICATION: Shortness of breath. Positive d-dimer. TECHNIQUE: Computed tomography angiography (CTA) of the chest was performed with 100 mL Omnipaque-350 intravenous contrast timed to evaluate the pulmonary arteries. Coronal maximum intensity projection 3D-reconstructions were created by the technologist. Automated exposure control and iterative reconst ruction technique were employed. Exam dose: 404.21 mGy-cm total exam DLP. COMPARISON: 03/12/2023 portable AP chest FINDINGS: There is diagnostic contrast enhancement of the pulmonary arteries and no evidence of pulmo nary embolism. Cardiomegaly. Left-sided transvenous dual-lead pacemaker/defibrillator device. Coronary artery calcifications. No p ericardial effusion. No thoracic aortic aneurysm or dissection. No hilar or mediastinal mass lesion or lymphadenopathy. Small sliding hiatal hernia. There is a right Port-A-Cath catheter. There is minimal discoid atelectasis or scarring at the base of the lingula and left lower lobe. No p ulmonary infiltrate or consolidation or suspicious pulmonary mass lesion is evident. Indeterminate approximately 12 mm hypoattenuating lesion of the left hepatic lobe, probably a cyst. Bilateral adrenal hypertrophy; no adrenal mass lesion is detected. Prominent degenerative disc disease in the lower cervical spine. Diffuse idiopathic skeletal hyperostosis of the thoracic spine. Prominent degenerative change of the included upper lumbar spine. No suspicious osteolytic or osteoblastic lesions are noted. IMPRESSION: No evidence of pulmonary embolism Reviewed, dictated and finalized at Location A. Reviewed, dictated and finalized at location L.
--- NOTE | ~2023-03-12 | XR_ITS ---
Portable chest x-ray Comparison: 11/23/2022 Clinical History: Choking episode Findings: Stable right-sided Mediport in place. Lungs are clear, without focal consolidation or pleu ral effusion. Cardiomediastinal silhouette is stable, with pacemaker device. Bones and soft tissues are unremarkable. Impression: Clear lungs. Mediport and pacemaker device, unchanged. Reviewed, dictated and finalized at location M. Impression: Clear lungs. Mediport and pacemaker device, unchanged.
--- NOTE | 2023-03-12 08:50 | ECG_ITS ---
Measurements Intervals [place] Rate: 133 P: 46 ME: 137 QRS: -55 QRSD: 145 T: 63 QT: 332 QTc: 494 Interpretive Statements ATRIAL FLUTTER/TACHYCARDIA WITH RAPID VENTRICULAR RESPONSE ATRIAL AND VENTRICULAR PREMATURE COMPLEXES LEFT AXIS DEVIATION LEFT BUNDLE BRANCH BLOCK ABNORMAL ECG NO PREVIOUS ECG AVAILABLE FOR COMPARISON Electronically Signed On 03-12-2023 9:25:32 CDT by Tu Tirado D.O.
--- NOTE | 2023-03-12 08:53 | ED.SOB ---
HPI - SOB/Dyspnea General Chief Complaint: Shortness of Breath/Dyspnea Stated Complaint: SOB/Anxiety Time Seen by Provider: 03/12/23 08:49 History of Present Illness HPI Narrative: Pt was walking to breakfast after eating watermelon and says she feels like she is choking. Pt hyperventilating and anxious. Pt denies CP. Says has never happened before. Pt then had large episode of emesis here and had bif chunk of watermelon in it. After emesis pt felt much better. Related Data Home Medications Medication Instructions Recorded Confirmed anastrozole 1 mg tablet 1 mg PO DAILY 11/13/22 03/12/23 atorvastatin 10 mg tablet 10 mg PO DAILY 11/13/22 03/12/23 carvedilol 12.5 mg tablet 12.5 mg PO BID 11/13/22 03/12/23 furosemide 40 mg tablet 40 mg PO DAILY 11/13/22 03/12/23 montelukast 10 mg tablet 10 mg PO DAILY 11/13/22 03/12/23 sacubitril 24 mg-valsartan 26 mg 1 tablet PO BID 11/13/22 03/12/23 tablet (Entresto) spironolactone 25 mg tablet 25 mg PO DAILY 11/13/22 03/12/23 albuterol sulfate 90 mcg/actuation 2 puff inhalation PRN PRN Wheezing 03/12/23 03/12/23 aerosol inhaler digoxin 125 mcg (0.125 mg) tablet 250 mcg PO DAILY 03/12/23 03/12/23 empagliflozin 10 mg tablet 10 mg PO DAILY 03/12/23 03/12/23 (Jardiance) Allergies Allergy/AdvReac Type Severity Reaction Status Date / Time TARA Inhibitors Allergy Intermediate Unknown Verified 03/12/23 08:45 Review of Systems Review of Systems: All systems reviewed & are unremarkable except as noted in HPI and below PMFSH Family History Family History (System 11/30/19 @ 10:35 by Amber Webb) Other Family history of coronary artery disease Social History Social History (System 11/30/19 @ 10:35 by Amber Webb) Smoking status: Never smoker Exam Const: General: healthy appearing Nutritional Appearance: well nourished Orientation/consciousness: patient oriented x3 Limitations: other limitations (anxious and not answering questions well) HENMT: Mouth: Yes Normal oral and palatal mucosa present Throat: posterior oropharynx normal Chest: Chest palpation & inspection: normal inspection of the chest Resp: Effort & Inspection: normal respiratory effort Auscultation: clear to auscultation bilaterally Cardio: Rate: regular rate Rhythm: regular rhythm GI: GI Palp: Yes Soft to palpation Auscultation: normal bowel sounds Skin: General skin exam: normal color Rashes: no rashes Wounds: no wounds Neuro: General: patient oriented x3, moves all extremities and no focal motor deficits Speech: normal speech Extrem: General: normal to inspection and no clubbing, cyanosis or edema Psych: Mental Status: mental status grossly normal Affect: Anxious affect present Attitude: cooperative Course Vital Signs Vital signs: Vital Signs Temperature 98.0 F 03/12/23 08:39 Pulse Rate 122 H 03/12/23 08:39 Respiratory Rate 26 H 03/12/23 08:39 Blood Pressure 121/81 03/12/23 08:39 Pulse Oximetry 99 03/12/23 08:39 Oxygen Delivery Room Air 03/12/23 08:39 Temperature 98.0 F 03/12/23 08:39 Pulse Rate 116 H 03/12/23 13:37 Respiratory Rate 20 03/12/23 13:37 Blood Pressure 99/58 L 03/12/23 13:15 Pulse Oximetry 98 03/12/23 13:37 Oxygen Delivery Room Air 03/12/23 13:37 Oxygen Flow Rate 2 03/12/23 10:02 MDM - SOB/Dyspnea MDM Narrative Medical decision making narrative: Pt vomited watermelon here after complaining of feeling like she was choking. EKG cxr ordered zofran given and wait for a bit as she felt better after emesis but still tachycardic and hyperventilating. Pt somewhat improved after zofran but still seems anxious will give a little ativan and order some blood work including d dimer. d dimer high, ordered CTA chest for PE which was negative. HR came down to 120 with another 500 ml IVF repeat EKG NSR rate 120. pt stable for discharge feels much better. Lab Data 03/12/23 09:42 03/12/23 09:42
[2023-03-12] MEDS: ONDANSETRON HCL ODT 4 MG TABLET PO (09:11)
[2023-03-12] MEDS: LORazepam (*CRX) 1 MG TABLET PO (09:11)
--- NOTE | 2023-03-12 09:39 | PC.NURSE ---
0850 PT HAS 300ML EMESIS OF NOTED CHUNKS OF WATERMELON. PT THEN ADVISES THAT SHE DID EAT SOME WATERMELON PRIOR TO THE CHOKING SENSATION. PT STATES SHE IS FEELING BETTER, HOWEVER CONTINUES TO HYPERVENTILATE AND IS ANXIOUS. ERP IS AWARE. 0900 PT UP TO RR WITHOUT DIFFICULTY, HOWEVER IS UNABLE TO OBTAIN SPECIMEN SHE HAD A BM. PT REMAINS ANXIOUS. PT TO RECEIVE MEDICATION UPON RETURN TO EXAM ROOM. WILL CONTINUE TO MONITOR.
--- NOTE | 2023-03-12 09:42 | PC.NURSE ---
0915 AND SON HAVE ARRIVED, PT HAS ANOTHER EMESIS EPISODE APPROX 200ML. PT WAS ABLE TO TAKE MEDICATION AND DRINK WATER WITHOUT DIFFICULTY PRIOR TO EMESIS. PT HAS ANOTHER CHUNK OF WATERMELON NOTED IN EMESIS. ERP IS AWARE. PT CONTINUES TO BE ANXIOUS. WILL CONTINUE TO MONITOR.
--- NOTE | 2023-03-12 09:43 | PC.NURSE ---
PT IS AWAITING RESULTS AT THIS TIME, FAMILY REMAIN AT BEDSIDE. PT STATES THE CHOKING SENSATION IS GONE, HOWEVER NO CHANGE IN SX. WILL CONTINUE TO MONITOR.
[2023-03-12 09:46] LABS: Hematocrit 45.7 % (35.0-42.0); Hemoglobin 14.5 g/dL (11.7-13.8); Mean Corpuscular HGB Conc 31.7 g/dL (32.0-36.0); Mean Corpuscular Hemoglobin 29.1 pg (27.0-31.0); Mean Corpuscular Volume 91.6 fL (78.0-102.0); Mean Platelet Volume 10.2 fl (9.2-11.8); Platelet Count Result 160 K/mm3 (150-420); Red Blood Count 4.99 M/mm3 (4.20-5.40); Red Cell Distribution Width 15.1 % (11.6-14.4); White Blood Count 2.3 K/mm3 (4.8-10.8)
[2023-03-12 10:04] LABS: Partial Thromboplastin Time 25.6 SEC (23.90-30.70); Prothrombin Time 11.2 Seconds (9.50-12.10)
[2023-03-12 10:07] LABS: Band Neutrophils Percent 10 % (0-6); Basophils Percent Manual 0 % (0-1); Eosinophils Absolute Manual 0.04 K/mm3 (0.02-0.5); Eosinophils Percent Manual 2 % (1-6); Lymphocytes Absolute Manual 0.34 K/mm3 (1.1-4.5); Lymphocytes Percent Manual 15 % (18-44); Metamyelocytes Percent 5 %; Monocytes Absolute Manual 0.06 K/mm3 (0.1-0.90); Monocytes Percent Manual 3 % (3-9); Myelocytes Percent 3 %; Neutrophils Absolute Manual 1.65 K/mm3 (1.7-7.2); Neutrophils Percent Manual 62 % (46-73); Platelet Estimate Adequate (Adequate); Total Cells Counted 100
[2023-03-12 10:08] LABS: Alanine Aminotransferase 18 U/L (14-59); Albumin Level 3.1 g/dL (3.4-5.0); Alkaline Phosphatase 133 U/L (46-116); Anion Gap 15 mmol/L (8-16); Aspartate Amino Transferase 28 U/L (15-37); Bilirubin,Total 0.8 mg/dL (0.00-1.00); Blood Urea Nitrogen 17 mg/dL (7-18); Calcium 8.8 mg/dL (8.5-10.1); Carbon Dioxide 23 mmol/L (21-32); Chloride 101 mmol/L (98-108); Estimated CRCL calculation 32 ml/min; Estimated Glomerular Filt Rate 36; Glucose 112 mg/dL (70-99); Osmolality Calculated 290 mOsm/kg (285-295); Potassium 4.3 mmol/L (3.5-5.1); Sodium 139 mmol/L (136-145); Total Protein 7.5 g/dL (6.4-8.2)
[2023-03-12 10:09] LABS: Troponin I 22.5 ng/L (0.00-60.4)
--- NOTE | 2023-03-12 10:16 | PC.NURSE ---
NO CHANGE IN PT STATUS. FAMILY REMAINS AT BEDSIDE. PT HAS ELEVATED D DIMER, ERP IS AWARE. WILL CONTINUE TO MONITOR.
[2023-03-12] MEDS: SODIUM CHLORIDE 0.9% IV 1,000 ML 999 ML IV CONT (10:33)
--- NOTE | 2023-03-12 10:50 | PC.NURSE ---
PT IS IN CT AT THIS TIME. WILL CONTINUE TO MONITOR.
--- NOTE | 2023-03-12 11:20 | PC.NURSE ---
ICE CHIPS PROVIDED. FAMILY REMAINS AT BEDSIDE. IVF INFUSING WITHOUT DIFFICULTY. NO CHANGE IN PT STATUS, PT CONTINUES TO BE ANXIOUS. WILL CONTINUE TO MONITOR.
[2023-03-12] MEDS: LORazepam INJ (*CRX) 2 MG/ML VIAL 0.5 MG IV PUSH (11:29)
[2023-03-12] MEDS: SODIUM CHLORIDE 0.9% IV 500 ML 999 ML IV CONT (12:12)
--- NOTE | 2023-03-12 12:26 | ECG_ITS ---
Measurements Intervals [place] Rate: 120 P: 47 [place]: 157 QRS: -67 QRSD: 148 T: 74 QT: 344 QTc: 486 Interpretive Statements SINUS OR ECTOPIC ATRIAL TACHYCARDIA LEFT AXIS DEVIATION LEFT BUNDLE BRANCH BLOCK BASELINE ARTIFACT- I, II, III, AVR, AVL, AVF ABNORMAL ECG COMPARED TO ECG 03/12/2023 09:18:57 SINUS TACHYCARDIA NOW PRESENT Electronically Signed On 03-12-2023 12:48:28 CDT by Tu Tirado D.O.
--- NOTE | 2023-03-12 12:37 | PC.NURSE ---
WATER WAS PROVIDED TO PT. PT REPORTS SHE IS FEELING BETTER AND READY TO GO HOME. FAMILY AT BEDSIDE. ERP SPEAKING WITH PT AND FAMILY AT THIS TIME. WILL CONTINUE TO MONITOR.
== END 2023-03-12 13:37 | disposition home or self-care (01) ==
PROVIDERS: Emergency Provider Emergency Medicine; PCP Internal Medicine
DX: T17.928A Food in respiratory tract, part unspecified causing other injury, initial encounter (principal); F41.9 Anxiety disorder, unspecified; R00.0 Tachycardia, unspecified; E86.0 Dehydration
CPT/HCPCS: 36415; 71045; 71275; 80053; 83735; 84484; 85025; 85380; 85610; 85730; 93005; 96361; 96374; 99284; A9270; J2060; J7030; J7040; Q9967

== ENCOUNTER 2023-03-26 08:49 | Outpatient (CLI) | payer MEDICARE, MEDICAID, SELFPAY ==
[2023-03-26] MEDS: HEPARIN SODIUM LOCK FLUSH 500 UNITS/5 ML SYRINGE IV PUSH (09:08)
[2023-03-26 09:09] VITALS: BMI 33.1
[2023-03-26 09:10] VITALS: BP 132/69; PULSE 68; RESP 18; TEMP 36.1; O2SAT 96
--- NOTE | 2023-03-26 09:13 | PC.NURSE ---
Patient here for monthly port flush. Procedure explained. No concerns voiced. Port flush completed. see MAR and vascular assessment. Safe exit of hospital ambulatory with . Will return 05/16/23 0930 for port flush and reclast infusion.
== END 2023-03-26 08:50 | disposition home or self-care (01) ==
PROVIDERS: PCP Internal Medicine; Visit Provider Internal Medicine
DX: Z45.2 Encounter for adjustment and management of vascular access device (principal)
CPT/HCPCS: 96523

== ENCOUNTER 2023-04-16 08:44 | Outpatient (CLI) | payer MEDICARE, MEDICAID, SELFPAY ==
--- NOTE | ~2023-04-16 | MMUS_ITS ---
EXAMINATION: MM diagnostic sanchez BI w bea, US breast LT limited HISTORY: Patient with history of biopsy-proven left breast cancer undergoing chemotherapy only TECHNIQUE: Craniocaudal, mediolateral, and mediolateral oblique 3-D tomosynthesis images of the breas ts were performed and synthetic 2-D images were generated. CAD analysis was submitted and interpreted . High resolution limited left breast ultrasound was performed. COMPARISON: 10/16/2022, 03/07/2022 BREAST PARENCHYMAL COMPOSITION: There are scattered areas of fibroglandular density. FINDINGS: MAMMOGRAPHIC FINDINGS: Right breast: No suspicious mass, calcification, or architectural distortion are identified to sugges t malignancy. There has been no suspicious interval change. Left breast: There is an approximately 1.7 x 0.9 cm spiculated, irregular, high density mass in the m iddle third of the central breast 4.5 cm from the nipple corresponding to the biopsy-proven malignanc y. The mass demonstrates slight interval decrease in size since the comparison examination. ULTRASOUND: There is an approximately 1.6 x 0.9 cm irregular hypoechoic mass with angular margins, and posterior acoustic shadowing corresponding to the biopsy-proven cancer which previously measured 1.8 x 1.2 cm. A lymph node of the left axilla with mildly thickened cortex is stable in size. IMPRESSION: 1. Interval decrease in size of the biopsy-proven left breast cancer and stable appearance of a mildl y enlarged left axillary lymph node. 2. Recommend continued follow-up as clinically indicated. BI-RADS category 6, known, biopsy-proven malignancy. Reviewed, dictated and finalized at location A. IMPRESSION: 1. Interval decrease in size of the biopsy-proven left breast cancer and stable appearance of a mildly enlarged left axillary lymph node. 2. Recommend continued follow-up as clinically indicated. BI-RADS category 6, known, biopsy-proven malignancy.
== END 2023-04-16 08:45 | disposition home or self-care (01) ==
PROVIDERS: PCP Internal Medicine; Visit Provider Internal Medicine Hematology & Oncology
DX: C50.112 Malignant neoplasm of central portion of left female breast (principal)
CPT/HCPCS: 76642; 77062; 77066; G0279

== ENCOUNTER 2023-04-17 08:31 | Outpatient (NON) | payer MEDICARE, MEDICAID, SELFPAY ==
[2023-04-17 08:45] LABS: Basophils Absolute Auto 0.06 K/mm3 (0.00-0.10); Basophils Percent Auto 0.7 % (0.0-1.0); Eosinophils Percent Auto 3.3 % (1.0-6.0); Hematocrit 40.4 % (35.0-42.0); Hemoglobin 12.9 g/dL (11.7-13.8); Immature Granulocyte Absolute 0.02 K/mm3 (0.00-0.00); Immature Granulocyte Percent A 0.2 % (0.0-0.0); Lymphocytes Absolute Auto 1.19 K/mm3 (1.10-4.50); Lymphocytes Percent Auto 12.9 % (18.0-42.0); Mean Corpuscular HGB Conc 31.9 g/dL (32.0-36.0); Mean Corpuscular Hemoglobin 29.4 pg (27.0-31.0); Mean Platelet Volume 10.6 fl (9.2-11.8); Monocytes Absolute Auto 0.77 K/mm3 (0.10-0.90); Monocytes Percent Auto 8.4 % (2.0-11.0); Neutrophils Absolute Auto 6.9 K/mm3 (1.7-7.2); Neutrophils Percent Auto 74.5 % (50.0-70.0); Platelet Count Result 276 K/mm3 (150-420); Red Blood Count 4.39 M/mm3 (4.20-5.40); Red Cell Distribution Width 16.4 % (11.6-14.4); White Blood Count 9.2 K/mm3 (4.8-10.8)
[2023-04-17 09:00] LABS: Alanine Aminotransferase 14 U/L (14-59); Albumin Level 2.9 g/dL (3.4-5.0); Alkaline Phosphatase 90 U/L (46-116); Anion Gap 10 mmol/L (8-16); Aspartate Amino Transferase 20 U/L (15-37); Bilirubin,Total 0.5 mg/dL (0.00-1.00); Blood Urea Nitrogen 16 mg/dL (7-18); Calcium 8.5 mg/dL (8.5-10.1); Carbon Dioxide 26 mmol/L (21-32); Chloride 104 mmol/L (98-108); Estimated Glomerular Filt Rate 46; Glucose 102 mg/dL (70-99); Osmolality Calculated 291 mOsm/kg (285-295); Potassium 4.9 mmol/L (3.5-5.1); Sodium 140 mmol/L (136-145); Total Protein 6.4 g/dL (6.4-8.2)
[2023-04-20 13:46] LABS: Vitamin D 25 Hydroxy 32 ng/mL (30-100)
== END 2023-04-17 08:32 | disposition home or self-care (01) ==
LOC: CHSLAB 08:37
DX: C50.919 Malignant neoplasm of unspecified site of unspecified female breast (principal); E55.9 Vitamin D deficiency, unspecified; Z79.899 Other long term (current) drug therapy
CPT/HCPCS: 36415; 80053; 82306; 85025

== ENCOUNTER 2023-04-25 11:23 | Outpatient (NON) | payer MEDICARE, MEDICAID, SELFPAY ==
[2023-04-25 11:32] LABS: Basophils Absolute Auto 0.06 K/mm3 (0.00-0.10); Basophils Percent Auto 0.7 % (0.0-1.0); Eosinophils Absolute Auto 0.29 K/mm3 (0.02-0.50); Eosinophils Percent Auto 3.2 % (1.0-6.0); Hematocrit 40.7 % (35.0-42.0); Immature Granulocyte Absolute 0.03 K/mm3 (0.00-0.00); Immature Granulocyte Percent A 0.3 % (0.0-0.0); Lymphocytes Absolute Auto 1.15 K/mm3 (1.10-4.50); Lymphocytes Percent Auto 12.8 % (18.0-42.0); Mean Corpuscular HGB Conc 31.9 g/dL (32.0-36.0); Mean Corpuscular Hemoglobin 29.7 pg (27.0-31.0); Mean Corpuscular Volume 92.9 fL (78.0-102.0); Mean Platelet Volume 10.7 fl (9.2-11.8); Monocytes Absolute Auto 0.76 K/mm3 (0.10-0.90); Monocytes Percent Auto 8.5 % (2.0-11.0); Neutrophils Absolute Auto 6.7 K/mm3 (1.7-7.2); Neutrophils Percent Auto 74.5 % (50.0-70.0); Platelet Count Result 272 K/mm3 (150-420); Red Blood Count 4.38 M/mm3 (4.20-5.40); Red Cell Distribution Width 16.3 % (11.6-14.4)
[2023-04-25 12:09] LABS: Alanine Aminotransferase 15 U/L (14-59); Albumin Level 2.9 g/dL (3.4-5.0); Alkaline Phosphatase 90 U/L (46-116); Anion Gap 10 mmol/L (8-16); Aspartate Amino Transferase 19 U/L (15-37); Bilirubin,Total 0.5 mg/dL (0.00-1.00); Blood Urea Nitrogen 15 mg/dL (7-18); Calcium 8.8 mg/dL (8.5-10.1); Carbon Dioxide 26 mmol/L (21-32); Chloride 104 mmol/L (98-108); Creatine Kinase 53 U/L (26-192); Estimated Glomerular Filt Rate 48; Glucose 90 mg/dL (70-99); Magnesium 2.4 mg/dL (1.8-2.4); Osmolality Calculated 290 mOsm/kg (285-295); Phosphorus 3.9 mg/dL (2.6-4.7); Potassium 4.9 mmol/L (3.5-5.1); Sodium 140 mmol/L (136-145); Total Protein 6.6 g/dL (6.4-8.2)
[2023-04-25 14:21] LABS: NT Pro B Type Natriuretic Pept 1039 pg/mL (0-450)
== END 2023-04-25 11:24 | disposition home or self-care (01) ==
LOC: CHSLAB 11:24
PROVIDERS: Visit Provider Internal Medicine
DX: R25.2 Cramp and spasm (principal); I25.10 Atherosclerotic heart disease of native coronary artery without angina pectoris; I50.9 Heart failure, unspecified
CPT/HCPCS: 36415; 80053; 82550; 83735; 83880; 84100; 85025

== ENCOUNTER 2023-05-21 08:58 | Outpatient (CLI) | payer MEDICARE, MEDICAID, SELFPAY ==
[2023-05-21 09:18] VITALS: BMI 34.0
[2023-05-21 09:19] VITALS: BP 135/58; PULSE 88; RESP 16; TEMP 36.7; O2SAT 97
[2023-05-21 09:34] LABS: Estimated CRCL calculation 29 ml/min; Estimated Glomerular Filt Rate 42
--- NOTE | 2023-05-21 09:58 | PC.NURSE ---
Patient here for IV Reclast infusion. Creatinine drawn sent to lab reviewed. Pharmacy [facility] called Dr. Navas's on blood level and received orders to hold Reclast today. Give Normal Saline 1000 ml over 2 hours. Recheck labs in a week.
[2023-05-21] MEDS: SODIUM CHLORIDE 0.9% IV 1,000 ML 500 ML IVPB (10:00)
[2023-05-21] MEDS: HEPARIN SODIUM LOCK FLUSH 500 UNITS/5 ML SYRINGE IV PUSH (11:52)
--- NOTE | 2023-05-21 11:55 | PC.NURSE ---
Patient tolerated 1 liter of NS over 2 hours well. Order given for CMP to be drawn 05/28/23. [facility] nurse will draw it. Results will be reviewed then by Dr. Wyman and will go from there. Safe exit of hospital per ambulatory with friend.
== END 2023-05-21 08:59 | disposition home or self-care (01) ==
PROVIDERS: PCP Internal Medicine; Visit Provider Internal Medicine Hematology & Oncology
DX: R79.89 Other specified abnormal findings of blood chemistry (principal); C50.012 Malignant neoplasm of nipple and areola, left female breast
CPT/HCPCS: 36415; 82565; 96360; 96361; J7030

== ENCOUNTER 2023-05-28 09:17 | Outpatient (NON) | payer MEDICARE, MEDICAID, SELFPAY ==
[2023-05-28 09:43] LABS: Alanine Aminotransferase 22 U/L (14-59); Albumin Level 2.7 g/dL (3.4-5.0); Alkaline Phosphatase 85 U/L (46-116); Anion Gap 12 mmol/L (8-16); Aspartate Amino Transferase 17 U/L (15-37); Bilirubin,Total 0.3 mg/dL (0.00-1.00); Blood Urea Nitrogen 11 mg/dL (7-18); Calcium 8.7 mg/dL (8.5-10.1); Carbon Dioxide 24 mmol/L (21-32); Chloride 102 mmol/L (98-108); Estimated Glomerular Filt Rate 49; Glucose 129 mg/dL (70-99); Osmolality Calculated 287 mOsm/kg (285-295); Potassium 4.6 mmol/L (3.5-5.1); Sodium 138 mmol/L (136-145); Total Protein 6.5 g/dL (6.4-8.2)
== END 2023-05-28 09:18 | disposition home or self-care (01) ==
LOC: CHSLAB 09:18
PROVIDERS: Visit Provider Internal Medicine Hematology
DX: R79.89 Other specified abnormal findings of blood chemistry (principal)
CPT/HCPCS: 36415; 80053

== ENCOUNTER 2023-05-31 08:46 | Outpatient (CLI) | payer MEDICARE, MEDICAID, SELFPAY ==
[2023-05-31 08:53] VITALS: BMI 34.0
[2023-05-31 09:00] VITALS: BP 116/60; PULSE 82; RESP 16; TEMP 36.4; O2SAT 100
[2023-05-31] MEDS: SODIUM CHLORIDE 0.9% IVPB (09:10)
[2023-05-31] MEDS: ZOLEDRONIC ACID IVPB (09:10)
[2023-05-31] MEDS: HEPARIN SODIUM LOCK FLUSH 500 UNITS/5 ML SYRINGE (09:35)
--- NOTE | 2023-05-31 09:38 | PC.NURSE ---
Patient here for IV Zoledronic acid infusion. Lab creatinine clearance 33. Able to have infusion at 3 mg. Education given. No concerns voiced. Medication administered. SEE MAR. Tolerated well. Safe exit of hospital. Will return for monthly port flush 07/05/23 at 0900.
== END 2023-05-31 08:47 | disposition home or self-care (01) ==
PROVIDERS: PCP Internal Medicine; Visit Provider Internal Medicine Hematology
DX: C50.012 Malignant neoplasm of nipple and areola, left female breast (principal)
CPT/HCPCS: 96365; J3489

== ENCOUNTER 2023-07-05 08:49 | Outpatient (CLI) | payer MEDICARE, MEDICAID, SELFPAY ==
[2023-07-05] MEDS: HEPARIN SODIUM LOCK FLUSH 500 UNITS/5 ML SYRINGE IV PUSH (09:14)
[2023-07-05 09:15] VITALS: BP 131/68; PULSE 68; RESP 16; TEMP 36.3; O2SAT 96; BMI 34.0
--- NOTE | 2023-07-05 09:17 | PC.NURSE ---
Patient here for monthly port flush. NO concerns voiced. Procedure explained and carried out. Port flushed see MAR/worklist. Tolerated well. Port site asystomatic of s/sx of infection. Will be getting surgery next month-so will not be coming for port flush-the hospital will be using port and flushed there. Safe exit of hospital per ambulation with sign. other.
== END 2023-07-05 08:50 | disposition home or self-care (01) ==
PROVIDERS: PCP Internal Medicine; Visit Provider Internal Medicine
DX: Z45.2 Encounter for adjustment and management of vascular access device (principal); C50.919 Malignant neoplasm of unspecified site of unspecified female breast
CPT/HCPCS: 96523

== ENCOUNTER 2023-09-13 10:37 | Outpatient (NON) | payer MEDICARE, MEDICAID, SELFPAY ==
[2023-09-13 10:51] LABS: Basophils Absolute Auto 0.06 K/mm3 (0.00-0.10); Basophils Percent Auto 0.7 % (0.0-1.0); Eosinophils Absolute Auto 0.38 K/mm3 (0.02-0.50); Eosinophils Percent Auto 4.3 % (1.0-6.0); Hematocrit 40.9 % (35.0-42.0); Hemoglobin 12.3 g/dL (11.7-13.8); Immature Granulocyte Absolute 0.03 K/mm3 (0.00-0.00); Immature Granulocyte Percent A 0.3 % (0.0-0.0); Lymphocytes Absolute Auto 1.62 K/mm3 (1.10-4.50); Lymphocytes Percent Auto 18.5 % (18.0-42.0); Mean Corpuscular HGB Conc 30.1 g/dL (32.0-36.0); Mean Corpuscular Hemoglobin 27.9 pg (27.0-31.0); Mean Corpuscular Volume 92.7 fL (78.0-102.0); Mean Platelet Volume 10.3 fl (9.2-11.8); Monocytes Absolute Auto 0.68 K/mm3 (0.10-0.90); Monocytes Percent Auto 7.8 % (2.0-11.0); Neutrophils Percent Auto 68.4 % (50.0-70.0); Platelet Count Result 297 K/mm3 (150-420); Red Blood Count 4.41 M/mm3 (4.20-5.40); Red Cell Distribution Width 14.9 % (11.6-14.4); White Blood Count 8.8 K/mm3 (4.8-10.8)
[2023-09-13 11:26] LABS: Alanine Aminotransferase 15 U/L (14-59); Albumin Level 2.7 g/dL (3.4-5.0); Alkaline Phosphatase 83 U/L (46-116); Anion Gap 8 mmol/L (8-16); Aspartate Amino Transferase 21 U/L (15-37); Bilirubin,Total 0.4 mg/dL (0.00-1.00); Blood Urea Nitrogen 15 mg/dL (7-18); Calcium 8.2 mg/dL (8.5-10.1); Carbon Dioxide 31 mmol/L (21-32); Chloride 102 mmol/L (98-108); Estimated Glomerular Filt Rate 46; Glucose 97 mg/dL (70-99); Magnesium 2.4 mg/dL (1.8-2.4); NT Pro B Type Natriuretic Pept 1594 pg/mL (0-450); Osmolality Calculated 292 mOsm/kg (285-295); Potassium 4.4 mmol/L (3.5-5.1); Sodium 141 mmol/L (136-145); Total Protein 6.4 g/dL (6.4-8.2)
[2023-09-13 14:34] LABS: Digoxin 0.6 ng/mL (0.9-2.0)
== END 2023-09-13 10:38 | disposition home or self-care (01) ==
LOC: CHSLAB 10:40
PROVIDERS: Visit Provider Internal Medicine
DX: I50.9 Heart failure, unspecified (principal); J44.9 Chronic obstructive pulmonary disease, unspecified
CPT/HCPCS: 80053; 80162; 83735; 83880; 85025

== ENCOUNTER 2023-11-04 08:48 | Outpatient (CLI) | payer MEDICARE, MEDICAID, SELFPAY ==
--- NOTE | ~2023-11-04 | US_ITS ---
US breast LT complete 11/04/2023 09:36 Indication: Status post left mastectomy and radiation therapy for breast cancer. Procedure: High-resolution Limited ultrasound of the left chest wall Comparison: Mammogram and ultrasound dated 04/16/2023 Findings: At the prior mastectomy site there is an elongated area of decreased echogenicity with slig htly irregular margins, likely representing fibrosis secondary to prior surgery and radiation therapy . No internal vascularity or significant posterior features. Impression: 1: Probable benign findings of the left chest wall corresponding to area of previous surgery/radiatio n. BI-RADS CATEGORY 3-PROBABLY BENIGN FINDING RECOMMENDATION: Six-month follow-up Limited left breast ultrasound recommended. Reviewed, dictated and finalized at location A. Impression: 1: Probable benign findings of the left chest wall corresponding to area of pre vious surgery/radiation. BI-RADS CATEGORY 3-PROBABLY BENIGN FINDING RECOMMENDATION: Six-month follow-up Limited left breast ultrasound recommended.
== END 2023-11-04 08:49 | disposition home or self-care (01) ==
LOC: CHSIMG 08:50
PROVIDERS: PCP Internal Medicine; Visit Provider Internal Medicine Hematology & Oncology
DX: C50.112 Malignant neoplasm of central portion of left female breast (principal)
CPT/HCPCS: 76641

== ENCOUNTER 2023-11-15 09:32 | Outpatient (CLI) | payer MEDICARE, MEDICAID, SELFPAY ==
--- NOTE | ~2023-11-15 | CT_ITS ---
EXAMINATION: CT hip LT wo con DATE: 11/15/2023 10:10 INDICATION: Chronic left hip pain. TECHNIQUE: Computed tomography (CT) of the left hip was performed without intravenous contrast. Autom ated exposure control and iterative reconstruction technique were employed. The dose-length product w as 475.53 mGy-cm. COMPARISON: None FINDINGS: Bone alignment is normal. No fracture. There is moderate lumbar spondylosis. There is moder ate left hip osteoarthritis. Osteitis pubis is noted. There is diverticulosis of the colon without ev idence of diverticulitis. IMPRESSION: 1. Moderate left hip osteoarthritis. Reviewed, dictated and finalized at location A.
== END 2023-11-15 09:33 | disposition home or self-care (01) ==
LOC: CHSIMG 09:33
PROVIDERS: PCP Internal Medicine; Visit Provider Internal Medicine Hematology
DX: M81.0 Age-related osteoporosis without current pathological fracture (principal); M16.12 Unilateral primary osteoarthritis, left hip
CPT/HCPCS: 73700

== ENCOUNTER 2023-11-18 11:19 | Outpatient (NON) | payer MEDICARE, MEDICAID, SELFPAY ==
[2023-11-18 11:39] LABS: Basophils Absolute Auto 0.02 K/mm3 (0.00-0.10); Basophils Percent Auto 0.2 % (0.0-1.0); Eosinophils Absolute Auto 0.01 K/mm3 (0.02-0.50); Eosinophils Percent Auto 0.1 % (1.0-6.0); Hematocrit 43.7 % (35.0-42.0); Hemoglobin 13.3 g/dL (11.7-13.8); Immature Granulocyte Percent A 0.8 % (0.0-0.0); Lymphocytes Absolute Auto 0.74 K/mm3 (1.10-4.50); Lymphocytes Percent Auto 6.1 % (18.0-42.0); Mean Corpuscular HGB Conc 30.4 g/dL (32-36); Mean Corpuscular Hemoglobin 27.9 pg (27.0-31.0); Mean Corpuscular Volume 91.6 fL (78.0-102.0); Mean Platelet Volume 10.8 fl (9.2-11.8); Monocytes Absolute Auto 0.83 K/mm3 (0.10-0.90); Monocytes Percent Auto 6.9 % (2.0-11.0); Neutrophils Absolute Auto 10.36 K/mm3 (1.70-7.20); Neutrophils Percent Auto 85.9 % (50.0-70.0); Platelet Count Result 226 K/mm3 (150-420); Red Blood Count 4.77 M/mm3 (4.20-5.40); Red Cell Distribution Width 16.7 % (11.6-14.4); White Blood Count 12.1 K/mm3 (4.8-10.8)
[2023-11-18 11:50] LABS: Alanine Aminotransferase 19 U/L (14-59); Albumin Level 2.8 g/dL (3.4-5.0); Alkaline Phosphatase 71 U/L (46-116); Anion Gap 15 mmol/L (4-12); Aspartate Amino Transferase 22 U/L (15-37); Bilirubin,Total 0.3 mg/dL (0.00-1.00); Blood Urea Nitrogen 28 mg/dL (7-18); Calcium 8.5 mg/dL (8.5-10.1); Carbon Dioxide 23 mmol/L (21-32); Chloride 103 mmol/L (98-108); Digoxin 0.6 ng/mL (0.9-2.0); Estimated Glomerular Filt Rate 49; Glucose 195 mg/dL (70-99); Magnesium 2.3 mg/dL (1.8-2.4); NT Pro B Type Natriuretic Pept 2326 pg/mL (0-450); Osmolality Calculated 302 mOsm/kg (285-295); Potassium 4.3 mmol/L (3.5-5.1); Sodium 141 mmol/L (136-145); Total Protein 6.2 g/dL (6.4-8.2)
[2023-11-18 11:55] LABS: CRP < 0.5 mg/dL (0.0-0.9)
== END 2023-11-18 11:20 | disposition home or self-care (01) ==
LOC: CHSLAB 11:21
PROVIDERS: Visit Provider Internal Medicine
DX: M25.552 Pain in left hip (principal); I50.1 Left ventricular failure, unspecified
CPT/HCPCS: 80053; 80162; 83735; 83880; 85025; 86140

== ENCOUNTER 2023-11-19 09:28 | Outpatient (CLI) | payer MEDICARE, MEDICAID, SELFPAY ==
--- NOTE | ~2023-11-19 | XR_ITS ---
EXAM: XR lumbar spine 2-3V DATE: 11/19/2023 09:49 HISTORY: LT hip pain X few weeks since finishing radiation, breast CA . COMPARISON: None available. FINDINGS: Mild scoliosis. Decreased mineralization. 5 nonrib-bearing lumbar-type vertebral bodies. Pe dicles intact. 4 mm anterolisthesis at L4-5. Vertebral body heights preserved. Multilevel disc space narrowing, severe at L2-3. Multilevel marginal osteophytosis including large bridging anterior and la teral osteophytes. Severe lower lumbar facet sclerosis and hypertrophy. No fracture or dislocation. IMPRESSION: Mild scoliosis. Osteopenia. Grade 1 anterolisthesis at L4-5. Multilevel lumbar degenerati ve disc disease, severe at L2-3. Severe lower lumbar facet arthropathy. Reviewed, dictated and finalized at location K. IMPRESSION: Mild scoliosis. Osteopenia. Grade 1 anterolisthesis at L4-5. Multil evel lumbar degenerative disc disease, severe at L2-3. Severe lower lumbar face t arthropathy.
== END 2023-11-19 09:29 | disposition home or self-care (01) ==
LOC: CHSIMG 09:31
PROVIDERS: PCP Internal Medicine; Visit Provider Internal Medicine
DX: M54.50 Low back pain, unspecified (principal); M25.552 Pain in left hip; M41.86 Other forms of scoliosis, lumbar region; M85.88 Other specified disorders of bone density and structure, other site; M43.16 Spondylolisthesis, lumbar region; M51.36 Other intervertebral disc degeneration, lumbar region; M12.88 Other specific arthropathies, not elsewhere classified, other specified site
CPT/HCPCS: 72100

== ENCOUNTER 2023-11-21 15:33 | Outpatient (RCR) | payer MEDICARE, MEDICAID, SELFPAY ==
--- NOTE | 2023-11-21 16:42 | OPREHPOC ---
Outpatient Therapy Plan of Care This is a Multidisciplinary Plan of Care that may contain components documented by all disciplines (PT, OT, and ST.) PT Problem 1 PT Problem #1 Knowledge Deficit PT Goal 1 Goal patient to demonstrate independence with HEP Target Visit 5 PT Problem 2 PT Problem #2 Pain PT Goal 1 Goal 1. patient to report highest pain at 2/10 2. patient to report ability to sleep with no disturbance due to L hip pain Target Visit 10 PT Problem 3 PT Problem #3 Impaired Strength PT Goal 1 Goal Patient to demonstrate 4+/5 L LE strength with no increase in pain in order to return to getting into car and ambulating with no limitations Target Visit 10 PT Problem 4 PT Problem #4 Impaired Functional Mobil PT Goal 1 Goal 1. Patient to demonstrate 20% improvement on LEFS 2. Patient to report ability to sit for >30 minutes with no onset of pain Target Visit 10
--- NOTE | 2023-11-21 16:42 | PTOPEVAL1 ---
Assessment and note entered by Maci Morillo DPT Evaluation Information Assessment Status Evaluation Diagnosis L hip pain Onset 11/18/23 Subjective Information patient reports she has L hip (posterior) and posterior L knee pain for the last 2 weeks. She reports she lives at the [place] but is still driving. She denies injury and came on suddenly. She reports she is having sleeping at night, walking, sitting for long periods and getting into and out of the car. She denies prior pain in the L hip. She has a history of breast cancer and has a pacemaker. She presents today with a rollator but states she has only used it since pain started . She reports the MD would like her to get a back MRI but has to go to [place] or [place] due to Pacemaker. She returns to MD in ~4 weeks. Reported Pain Level Pain Score 8: Self Report Assessment PT Clinical Summary Mrs. Moreau is an 83 year old female who presents to PT with L hip pain and L posterior knee pain. Patient demonstrates impaired posture, decreased L LE strength, decreased L LE flexibility and impaired gait mechanics impairing her ability to sleep, get into and out of the car, ambulate within her BRET and sit for prolonged periods. She would benefit from skilled PT to address impairments and return to [facility]. Plan of Care Interventions Gait Training,Hot Pack/Cold Pack,Manual Therapy, Mechanical Traction,Neuro Re-education,Patient/ Caregiver Educati,Therapeutic Activities, Therapeutic Exercise PT Services Indicated Yes Treatment Frequency and 2x weekly for 10 visits Duration These treatments will address the objective and functional deficits as defined above. The patient will be advanced safely and appropriately in order for the patient to progress towards his/her prior level of function. Additional exercises will be introduced and as well as a comprehensive home exercise program upon discharge, if needed, ?to ensure carryover of functional gains achieved in the clinic. This treatment plan has been reviewed and agreement upon by the patient.
--- NOTE | 2023-12-25 11:01 | OPREHPOC ---
Outpatient Therapy Plan of Care This is a Multidisciplinary Plan of Care that may contain components documented by all disciplines (PT, OT, and ST.) PT Problem 1 PT Problem #1 Knowledge Deficit PT Goal 1 Goal patient to demonstrate independence with HEP Target Visit 5 Progress Met PT Problem 2 PT Problem #2 Pain PT Goal 1 Goal 1. patient to report highest pain at 2/10 2. patient to report ability to sleep with no disturbance due to L hip pain Target Visit 10 Progress Not Met PT Problem 3 PT Problem #3 Impaired Strength PT Goal 1 Goal Patient to demonstrate 4+/5 L LE strength with no increase in pain in order to return to getting into car and ambulating with no limitations Target Visit 10 Progress Met PT Problem 4 PT Problem #4 Impaired Functional Mobil PT Goal 1 Goal 1. Patient to demonstrate 20% improvement on LEFS. met 2. Patient to report ability to sit for >30 minutes with no onset of pain. met Target Visit 10 Progress Met
--- NOTE | 2023-12-25 11:03 | PTOPDC ---
Assessment and note entered by JT File, PT Evaluation Information Assessment Status Discharge Diagnosis L hip pain Onset 11/18/23 Subjective Information patient reports she feels pretty good today. she reports she still uses a rollator walker at the [facility] to walk to the dining yeh as it is a far walk, but otherwise does not use any AD. she reports the pain is lower, and she is walking a lot better since her initial evaluation. she reports she is ready to try exercises on her own at home. she reports she does have access to a bike in the exercise room at the [facility]. Reported Pain Level Pain Score 1: Self Report Assessment PT Clinical Summary mrs. bush presents to skilled PT services for her 10th skilled PT visit. she displays improvements in LE strength, pain reduction, and ambulation independence. she has met goals for HEP performance, functional mobility, and strength. she is compliant with her HEP at home. she will DC skilled PT today, and continue with HEP independent at home. she was instructed to follow up with MD/PT if she has any issues or return of symptoms/pain. Plan of Care PT Services Indicated Yes
== END 2023-12-25 15:02 | disposition home or self-care (01) ==
LOC: CHSPT 15:33
PROVIDERS: PCP Internal Medicine; Visit Provider Internal Medicine
DX: M25.552 Pain in left hip (principal)
CPT/HCPCS: 97110; 97161

== ENCOUNTER 2023-11-23 07:50 | Emergency (ER) | payer MEDICARE, MEDICAID, SELFPAY ==
--- NOTE | ~2023-11-23 | XR_ITS ---
XR hip LT 2V w AP pelvis DATE: 11/23/2023 08:38 INDICATION: Left hip pain, radiating to left knee for 2 weeks. No known injury. TECHNIQUE: AP pelvis. AP and lateral views of left hip. COMPARISON: 11/15/2023 CT left hip FINDINGS: Multilevel degenerative disc disease including L3-4, L4-5 and L5-S1. Osteopenia. Chronic deformity of the superolateral aspect of the right iliac crest. No recent pelvic fracture. Normal alignment at the pubic symphysis and sacroiliac joints. No fracture or dislocation, avascular necrosis or bone destruction of the left hip. At IMPRESSION: Osteopenia Multilevel degenerative disc disease of the included lumbar and lumbosacral spine No recent pelvic fracture or fracture or dislocation of left hip Reviewed, dictated and finalized at location A. IMPRESSION: Osteopenia Multilevel degenerative disc disease of the included lumbar and lumbosacral spi ne No recent pelvic fracture or fracture or dislocation of left hip
[2023-11-23 07:50] VITALS: BP 139/93; PULSE 93; RESP 20; TEMP 36.2; O2SAT 99
--- NOTE | 2023-11-23 08:05 | ED.GENADULT ---
HPI - General Adult General Chief complaint: Extremity Injury, Lower Stated complaint: left hip and leg pain Time Seen by Provider: 11/23/23 08:03 Source: patient Mode of arrival: ambulatory Limitations: no limitations History of Present Illness HPI narrative: 81-year-old white female with history of breast cancer with radiation status post mastectomy left breast started having left hip pain radiating to her lower extremity after last radiation treatment 2 weeks ago. Her primary care provider Dr. Meyer is trying to schedule outpatient MRI. she had a CT of her left hip showed osteoarthritis moderate 2 days ago. And LS-spine x-ray November 14 showed arthritis osteopenia degenerative changes. Patient was on Toradol at home but she ran out of it yesterday. She says it does not work. patient rates her pain as a 10/10 worse when she moves it or touches it is in her left hip radiating down her left thigh to her knee in her calf. Denies any shortness of breath or cough chest pain difficulty breathing. She has got chronic swelling of her lower extremities has a history of congestive heart failure, pacemaker and defibrillator and 2 stents. Denies any problems eating or drinking voiding or stooling other swelling lumps or bumps other pain rash or itching bleeding bruising or other problems. Related Data Home Medications Medication Instructions Recorded Confirmed anastrozole 1 mg tablet 1 mg PO DAILY 11/13/22 11/23/23 atorvastatin 10 mg tablet 10 mg PO DAILY 11/13/22 11/23/23 carvedilol 12.5 mg tablet 12.5 mg PO BID 11/13/22 11/23/23 furosemide 40 mg tablet 40 mg PO DAILY 11/13/22 11/23/23 montelukast 10 mg tablet 10 mg PO DAILY 11/13/22 11/23/23 spironolactone 25 mg tablet 25 mg PO BID 11/13/22 11/23/23 digoxin 125 mcg (0.125 mg) tablet 125 mcg PO DAILY 03/12/23 11/23/23 empagliflozin 10 mg tablet 10 mg PO DAILY 03/12/23 11/23/23 (Jardiance) aspirin 81 mg tablet 81 mg PO DAILY 11/23/23 11/23/23 ipratropium 18 mcg-albuterol 103 1 spray inhalation QID 11/23/23 11/23/23 mcg/actuation aerosol inhaler sacubitril 24 mg-valsartan 26 mg 1 tablet PO BID 11/23/23 11/23/23 tablet (Entresto) Allergies Allergy/AdvReac Type Severity Reaction Status Date / Time TARA Inhibitors Allergy Intermediate Unknown Verified 11/23/23 08:01 Review of Systems Review of Systems: All systems reviewed & are unremarkable except as noted in HPI and below PMFSH Family History Family History Other Family history of coronary artery disease Social History Social History Smoking status: Never smoker Exam Narrative: White female patient with Twinges of intermittent pain to her left hip.? Head normocephalic, atraumatic.? Eyes conjunctiva pink sclera nonicteric.? Extraocular movements are intact.? Ears externally normal.? Oropharynx is clear with moist mucous membranes without exudates.? Neck is supple nontender no lymphadenopathy.? Back is nontender.? Lungs are clear.? Heart is regular rate and rhythm without murmurs gallops or rubs.? Chest wall nontender.? Back is nontender. Abdomen is soft and nontender no hepatosplenomegaly or masses no CVA tenderness no abdominal bruits.? Extremities : Left hip tender worse with range of motion she has decreased range of motion secondary pain. Her knee is normal. Thighs nontender the back of her knee is tender. Negative Homans Sign. Right hip is normal with full range of motion.? Skin is warm and dry without rashes or lesions.? Neurological patient is alert and oriented x4.? Motor and sensory grossly intact.? Course Vital Signs Vital signs: Vital Signs Temperature 36.2 C L 11/23/23 07:50 Pulse Rate 93 11/23/23 07:50 Respiratory Rate 20 11/23/23 07:50 Blood Pressure 139/93 H 11/23/23 07:50 Pulse Oximetry 99 11/23/23 07:50 Oxygen Delivery Room Air 11/23/23 07:50 Temper
[2023-11-23 08:08] VITALS: BP 139/93; PULSE 93; RESP 20; TEMP 36.2; O2SAT 99
[2023-11-23] MEDS: KETOROLAC 30 MG/ML VIAL (*BKC) IM (08:35)
[2023-11-23 09:00] VITALS: BP 126/69; PULSE 88; RESP 16; O2SAT 97
== END 2023-11-23 09:00 | disposition home or self-care (01) ==
PROVIDERS: Emergency Provider Emergency Medicine; PCP Internal Medicine
DX: M16.12 Unilateral primary osteoarthritis, left hip (principal); C50.912 Malignant neoplasm of unspecified site of left female breast; Z90.12 Acquired absence of left breast and nipple; I50.9 Heart failure, unspecified; Z95.0 Presence of cardiac pacemaker
CPT/HCPCS: 73502; 96372; 99283; J1885

== ENCOUNTER 2023-12-03 08:59 | Outpatient (CLI) | payer MEDICARE, MEDICAID, SELFPAY ==
[2023-12-03 09:21] VITALS: BP 141/74; PULSE 76; RESP 14; TEMP 36.6; O2SAT 97; BMI 32.5
[2023-12-03 09:23] LABS: Estimated Glomerular Filt Rate 41
--- NOTE | 2023-12-03 10:02 | PC.NURSE ---
Patient here for Zometa infusion q 6 months. Creatinine level drawn- 1.25 Creatinine clearance 29. Notified Dr. Wyman of labs value. Telephone orders received to hold Zometa and repeat Creatinine in 2 weeks. Safe exit of hospital per significant other /ambulation. Will return for lab on 12/19/23 0900.
== END 2023-12-03 09:00 | disposition home or self-care (01) ==
PROVIDERS: PCP Internal Medicine; Visit Provider Internal Medicine Hematology
DX: C50.012 Malignant neoplasm of nipple and areola, left female breast (principal)
CPT/HCPCS: 36415; 82565

== ENCOUNTER 2023-12-19 08:55 | Outpatient (CLI) | payer MEDICARE, MEDICAID, SELFPAY ==
[2023-12-19 09:22] LABS: Estimated Glomerular Filt Rate 43
[2023-12-19 09:26] VITALS: BMI 32.5
--- NOTE | 2023-12-19 09:47 | PC.NURSE ---
Patient here for Zoledronic acid infusion. Creatinine blood work completed. Pharmacy calculated it-29.3. too low for infusion. Left message for Dr. Wyman with his nurse. Will call patient to let her know what he wants to do.
== END 2023-12-19 08:56 | disposition home or self-care (01) ==
LOC: CHSTREATRM 08:57
PROVIDERS: PCP Internal Medicine; Visit Provider Internal Medicine Hematology
DX: C50.012 Malignant neoplasm of nipple and areola, left female breast (principal)
CPT/HCPCS: 36415; 82565

== ENCOUNTER 2024-01-19 08:15 | Emergency (ER) | payer MEDICARE, MEDICAID, SELFPAY ==
[2024-01-19 08:15] VITALS: BP 121/76; PULSE 96; RESP 20; TEMP 36.4; O2SAT 96
--- NOTE | 2024-01-19 08:23 | ED.LOWEXIN ---
HPI - Extremity Injury (Lower) General Chief Complaint: Extremity Injury, Lower Stated Complaint: left hip and left leg pain Time Seen by Provider: 01/19/24 08:22 Source: patient Mode of arrival: ambulatory Limitations: no limitations History of Present Illness HPI Narrative: Patient is a 83-year-old female with left hip pain and extension of pain to her left knee. This is been going on since November. She has seen her primary doctor multiple times for this problem as well as ERs. She just had an MRI done and it showed a nerve impingement. She has been given hydrocodone. The primary doctor typically has been following this closely. She presents with acute onset pain overnight. MD complaint: other ( Left hip pain) Onset (ago): month(s) (3) Injury: Left: hip, pelvis, thigh and knee Type of Injury: other ( no injury) Place: home Severity: severe Severity scale (1-10): 9 Relieving factors: nothing Exacerbating factors: weight bearing, movement and palpation Context: other ( no specific injury) Associated symptoms: tingling and able to partially bear weight Other symptoms: none Treatments prior to arrival: other ( hydrocodone) Related Data Home Medications Medication Instructions Recorded Confirmed anastrozole 1 mg tablet 1 mg PO DAILY 11/13/22 12/19/23 atorvastatin 10 mg tablet 10 mg PO DAILY 11/13/22 12/19/23 carvedilol 12.5 mg tablet 12.5 mg PO BID 11/13/22 12/19/23 furosemide 40 mg tablet 40 mg PO DAILY 11/13/22 12/19/23 montelukast 10 mg tablet 10 mg PO DAILY 11/13/22 12/19/23 spironolactone 25 mg tablet 25 mg PO BID 11/13/22 12/19/23 digoxin 125 mcg (0.125 mg) tablet 125 mcg PO DAILY 03/12/23 12/19/23 empagliflozin 10 mg tablet 10 mg PO DAILY 03/12/23 12/19/23 (Jardiance) aspirin 81 mg tablet 81 mg PO DAILY 11/23/23 12/19/23 ipratropium 18 mcg-albuterol 103 1 spray inhalation QID 11/23/23 12/19/23 mcg/actuation aerosol inhaler sacubitril 24 mg-valsartan 26 mg 1 tablet PO BID 11/23/23 12/19/23 tablet (Entresto) Allergies Allergy/AdvReac Type Severity Reaction Status Date / Time TARA Inhibitors Allergy Intermediate Unknown Verified 01/19/24 08:23 Review of Systems Review of Systems: All systems reviewed & are unremarkable except as noted in HPI and below Constitutional: Constitutional: Reports no additional constitutional complaints Eyes: Eyes: Reports no additional eye complaints ENT: Reports system reviewed and no additional complaints, except as documented Cardiovascular: Cardiovascular: Reports no additional cardiovascular complaints Respiratory: Respiratory: Reports no additional respiratory complaints Gastrointestinal: Gastrointestinal: Reports no additional gastrointestinal complaints Genitourinary: Genitourinary: Reports no additional female genitourinary complaints Musculoskeletal: Musculoskeletal: Reports no additional musculoskeletal complaints Integumentary/Breasts: Skin/Breast: Reports system reviewed and no additional complaints, except as docu Neurologic: Reports system reviewed and no additional complaints, except as documented Psychiatric: Psychiatric: Reports no additional psychiatric complaints Endocrine: Endocrine: Reports no additional endocrine complaints Hematologic/Lymphatic: Hematologic/Lymphatic: Reports no additional hematologic/lymphatic complaints Allergic/Immunologic: Allergic/Immunologic: Reports no additional allergic/immunologic complaints PMFSH Family History Family History Other Family history of coronary artery disease Social History Social History Smoking status: Never smoker Exam Const: General: healthy appearing Nutritional Appearance: well nourished Orientation/consciousness: patient oriented x3 HENMT: Head: normal to inspection Ears: external ears normal Face/Nose/Sinus: Normal external nose present Eyes: Conjunctivae: conju
[2024-01-19] MEDS: methylPREDNISolone SOD SUCC 125 MG VIAL IM (08:43)
[2024-01-19] MEDS: KETOROLAC (*BKC) 60 MG/2 ML VIAL IM (08:43)
== END 2024-01-19 09:06 | disposition home or self-care (01) ==
PROVIDERS: Emergency Provider Emergency Medicine; PCP Internal Medicine
DX: M70.62 Trochanteric bursitis, left hip (principal); M54.32 Sciatica, left side; Z79.811 Long term (current) use of aromatase inhibitors; Z79.84 Long term (current) use of oral hypoglycemic drugs; Z79.51 Long term (current) use of inhaled steroids; Z79.82 Long term (current) use of aspirin
CPT/HCPCS: 96372; 99284; J1885; J2919

== ENCOUNTER 2024-01-23 10:48 | Outpatient (NON) | payer MEDICARE, SELFPAY ==
[2024-01-23 11:17] LABS: Hematocrit 40.7 % (35.0-42.0); Hemoglobin 12.8 g/dL (11.7-13.8); Mean Corpuscular HGB Conc 31.4 g/dL (32-36); Mean Corpuscular Hemoglobin 29.6 pg (27.0-31.0); Mean Platelet Volume 11.1 fl (9.2-11.8); Platelet Count Result 237 K/mm3 (150-420); Red Blood Count 4.33 M/mm3 (4.20-5.40); Red Cell Distribution Width 17.4 % (11.6-14.4); White Blood Count 10.4 K/mm3 (4.8-10.8)
[2024-01-23 12:01] LABS: Alanine Aminotransferase 14 U/L (14-59); Albumin Level 2.8 g/dL (3.4-5.0); Alkaline Phosphatase 75 U/L (46-116); Anion Gap 13 mmol/L (4-12); Aspartate Amino Transferase 17 U/L (15-37); Bilirubin,Total 0.5 mg/dL (0.00-1.00); Blood Urea Nitrogen 21 mg/dL (7-18); Carbon Dioxide 25 mmol/L (21-32); Chloride 103 mmol/L (98-108); Estimated Glomerular Filt Rate 45; Glucose 136 mg/dL (70-99); Magnesium 1.9 mg/dL (1.8-2.4); NT Pro B Type Natriuretic Pept 1806 pg/mL (0-450); Osmolality Calculated 297 mOsm/kg (285-295); Potassium 4.2 mmol/L (3.5-5.1); Sodium 141 mmol/L (136-145); Total Protein 6.5 g/dL (6.4-8.2)
== END 2024-01-23 10:49 | disposition home or self-care (01) ==
LOC: CHSLAB 10:50
PROVIDERS: Visit Provider Internal Medicine
DX: I50.9 Heart failure, unspecified (principal)
CPT/HCPCS: 80053; 83735; 83880; 85027

== ENCOUNTER 2024-01-25 10:18 | Emergency (ER) | payer MEDICARE, SELFPAY ==
[2024-01-25 10:28] VITALS: BP 145/81; PULSE 108; RESP 20; TEMP 36.6; O2SAT 96
--- NOTE | 2024-01-25 10:32 | ED.LOWEXIN ---
HPI - Extremity Injury (Lower) General Chief Complaint: Extremity Injury, Lower Stated Complaint: leg pain Source: patient Mode of arrival: wheelchair History of Present Illness HPI Narrative: 83-year-old female with a history of CAD status post stents, CHF status post AICD, diabetes mellitus, breast cancer status post left mastectomy and radiation treatment presents to the ER with a 1 month history of -- left hip pain which radiates down to the back of left thigh and left knee. no bladder or bowel involvement. No fever. patient denies back The patient has been seen in the ER 2 times. The patient had x-rays of her left hip and spine which revealed multilevel degenerative disc disease along with scoliosis, anterolisthesis of L4/L5 and facet arthropathy. Patient went on to have an MRI of spine which revealed a pinched nerve as per the patient. I do not see record of an MRI being done. In view of the ongoing pain the patient is due to see a pain specialist. Currently the patient is unable to walk. She has severe lancinating pains. MD complaint: other ( Her pain in the left lower extremity started spontaneously without any history of trauma) Onset (ago): month(s) ( 1 month) Injury: Left: hip Relieving factors: nothing Exacerbating factors: nothing Treatments prior to arrival: NSAIDS Related Data Home Medications Medication Instructions Recorded Confirmed anastrozole 1 mg tablet 1 mg PO DAILY 11/13/22 01/25/24 atorvastatin 10 mg tablet 10 mg PO DAILY 11/13/22 01/25/24 carvedilol 12.5 mg tablet 12.5 mg PO BID 11/13/22 01/25/24 furosemide 40 mg tablet 40 mg PO DAILY 11/13/22 01/25/24 montelukast 10 mg tablet 10 mg PO DAILY 11/13/22 01/25/24 spironolactone 25 mg tablet 25 mg PO BID 11/13/22 01/25/24 digoxin 125 mcg (0.125 mg) tablet 125 mcg PO DAILY 03/12/23 01/25/24 aspirin 81 mg tablet 81 mg PO DAILY 11/23/23 01/25/24 ipratropium 18 mcg-albuterol 103 1 spray inhalation QID 11/23/23 01/25/24 mcg/actuation aerosol inhaler sacubitril 24 mg-valsartan 26 mg 1 tablet PO BID 11/23/23 01/25/24 tablet (Entresto) empagliflozin 10 mg tablet 10 mg PO DAILY 01/25/24 01/25/24 (Jardiance) Allergies Allergy/AdvReac Type Severity Reaction Status Date / Time TARA Inhibitors Allergy Intermediate Unknown Verified 01/25/24 10:35 Review of Systems Review of Systems: All systems reviewed & are unremarkable except as noted in HPI and below Constitutional: Constitutional: Reports as per HPI and Reports no additional constitutional complaints Eyes: Eyes: Reports as per HPI and Reports no additional eye complaints ENT: Reports system reviewed and no additional complaints, except as documented and Reports as per HPI Cardiovascular: Cardiovascular: Reports as per HPI and Reports no additional cardiovascular complaints Respiratory: Respiratory: Reports as per HPI and Reports no additional respiratory complaints Gastrointestinal: Gastrointestinal: Reports as per HPI and Reports no additional gastrointestinal complaints Genitourinary: Genitourinary: Reports no additional female genitourinary complaints and Reports as per HPI Musculoskeletal: Musculoskeletal: Reports no additional musculoskeletal complaints and Reports as per HPI Comments: left hip pain radiating down to the left knee Integumentary/Breasts: Skin/Breast: Reports system reviewed and no additional complaints, except as docu and Reports as per HPI Neurologic: Reports system reviewed and no additional complaints, except as documented and Reports as per HPI Psychiatric: Psychiatric: Reports no additional psychiatric complaints and Reports as per HPI Endocrine: Endocrine: Reports no additional endocrine complaints and Reports as per HPI Hematologic/Lymphatic: Hematologic/Lymphatic: Reports no additional hematologic/lymphatic complaints and Reports as per HPI Allergic/Immunologic: Allergic/Immunologic: Reports no additional allergic/immunologic complaints and Reports a
[2024-01-25] MEDS: HYDROmorphone HCL INJ (*CRX) 2 MG/ML VIAL 1 MG IM (11:05)
[2024-01-25] MEDS: ONDANSETRON HCL ODT 4 MG TABLET PO (11:05)
[2024-01-25 11:45] VITALS: BP 122/82; PULSE 98; RESP 20; TEMP 36.7; O2SAT 98
== END 2024-01-25 11:45 | disposition home or self-care (01) ==
PROVIDERS: Emergency Provider Internal Medicine Critical Care Medicine; PCP Internal Medicine
DX: M54.16 Radiculopathy, lumbar region (principal); I50.9 Heart failure, unspecified; E11.9 Type 2 diabetes mellitus without complications; Z79.899 Other long term (current) drug therapy; Z79.82 Long term (current) use of aspirin; Z85.3 Personal history of malignant neoplasm of breast
CPT/HCPCS: 96372; 99283; A9270; J1170

== ENCOUNTER 2024-02-09 21:53 | Observation (INO) | payer MEDICARE, MEDICAID, SELFPAY ==
--- NOTE | ~2024-02-09 | CT_ITS ---
Noncontrast CT scan of the lumbar spine CLINICAL HISTORY: Back pain, radiculopathy TECHNIQUE: Axial noncontrast imaging of the lumbar spine was performed. Sagittal and coronal reformat desi images were constructed. Dose reduction technique was used on this scan by utilizing automated ex posure control and iterative reconstruction technique. The dose-length product (DLP) was 556.97 mGy-c m. FINDINGS: No acute fracture seen. There is minimal grade 1 anterolisthesis of L4 over L5. At L1-L2, there is moderate degenerative distended. There is minimal disc bulge. There is minimal fac et arthropathy. No dalia central canal stenosis. There is mild to moderate right neural foraminal talia rowing. Left neural foramen preserved. At L2-L3, there is severe degenerative distortion. There is disc bulge and moderate facet arthropathy , without dalia canal stenosis. There is probable moderate right neural foraminal narrowing. Left travis ral foramen preserved. At L3-L4, there is mild degenerative disc narrowing. There is disc bulge and severe facet arthropathy , with probable mild to moderate central canal stenosis/thecal sac compression. There is moderate to advanced right neural foraminal narrowing, and minimal left neural foraminal narrowing. At L4-L5, there is moderate degenerative disc narrowing. There is disc bulge/uncovering with severe f acet arthropathy, resulting in severe spinal canal stenosis/thecal sac compression. There is moderate to severe bilateral neural foraminal compromise. At L5-S1, there is disc bulge and moderate facet arthropathy. No definite central canal stenosis. The re is severe left neural foraminal narrowing, and moderate right neural foraminal narrowing. Paravertebral soft tissues are unremarkable. Impression: No acute abnormality evident. Severe degenerative spondylosis, as detailed above, worst at L4-L5. Reviewed, dictated and finalized at [facility]. Impression: No acute abnormality evident. Severe degenerative spondylosis, as detailed above, worst at L4-L5.
--- NOTE | ~2024-02-09 | US_ITS ---
EXAMINATION: US venous doppler [facility] DATE: 02/10/2024 13:11 INDICATION: Left calf swelling. Lower limb edema. TECHNIQUE: Grayscale ultrasound images without and with compression and Doppler ultrasound images of the bilateral lower extremity veins were obtained. COMPARISON: None. FINDINGS: The visualized portions of right common femoral vein, profunda (deep) femoral vein, femoral vein, pop liteal vein, peroneal veins, posterior tibial veins, and greater saphenous vein outflow are patent. The visualized portions of left common femoral vein, profunda femoral vein, femoral vein, popliteal v ein, peroneal veins, posterior tibial veins, and greater saphenous vein outflow are patent. IMPRESSION: 1. No deep venous thrombosis. Reviewed, dictated and finalized at location A.
--- NOTE | ~2024-02-09 | CT_ITS ---
Non-contrast CT scan of the Pelvis Clinical indication: Pelvic pain Technique: 2.5 mm axial scans were obtained through the pelvis without intravenous or oral contrast. Dose reduction technique was used on this scan by utilizing automated exposure control and iterative reconstruction technique. The dose-length product (DLP) was 542.25 mGy-cm. Findings: Cholelithiasis is incidentally noted, partially imaged. Visualized inferior portion of the liver and lower poles of the kidneys are unremarkable. There is mild atherosclerotic calcification of the aorta and iliac vessels. Visualized bowel loops are unremarkable. Urinary bladder unremarkable. No pelvic mass evident. No ascites. No acute fracture or dislocation seen. There is moderate osteitis pubis. There is mild degenerative c hange of both hip joints. Visualized musculature about the pelvis is unremarkable. No soft tissue mas s or fluid collection evident. Impression: No acute abnormality seen. Degenerative changes, as above. Cholelithiasis. Reviewed, dictated and finalized at location . Impression: No acute abnormality seen. Degenerative changes, as above. Cholelithiasis.
[2024-02-09 21:53] VITALS: RESP 24; TEMP 36.8
--- NOTE | 2024-02-09 22:00 | ED.GENADULT ---
HPI - General Adult General Chief complaint: Extremity Problem,Nontraumatic Stated complaint: hip pain Time Seen by Provider: 02/09/24 21:55 History of Present Illness HPI narrative: Jennifer is an 83F with a PMH of osteoporosis, severe DJD, breast cancer, CAD, CHF, and OA that presented to the ED with severe pain that shoots from her posterior hip to her foot down the posterior side of her leg. No falls, trauma, loss of bowel or bladder control, no weakness or numbness. She has no other concerns. Related Data Home Medications Medication Instructions Recorded Confirmed anastrozole 1 mg tablet 1 mg PO DAILY 11/13/22 02/09/24 atorvastatin 10 mg tablet 10 mg PO DAILY 11/13/22 02/09/24 montelukast 10 mg tablet 10 mg PO DAILY 11/13/22 02/09/24 spironolactone 25 mg tablet 25 mg PO BID 11/13/22 02/09/24 digoxin 125 mcg (0.125 mg) tablet 125 mcg PO DAILY 03/12/23 02/09/24 aspirin 81 mg tablet 81 mg PO DAILY 11/23/23 02/09/24 ipratropium 18 mcg-albuterol 103 1 spray inhalation QID 11/23/23 02/09/24 mcg/actuation aerosol inhaler sacubitril 24 mg-valsartan 26 mg 1 tablet PO BID 11/23/23 02/09/24 tablet (Entresto) empagliflozin 10 mg tablet 10 mg PO DAILY 01/25/24 02/09/24 (Jardiance) Allergies Allergy/AdvReac Type Severity Reaction Status Date / Time TARA Inhibitors AdvReac Mild Cough Verified 02/09/24 21:58 Review of Systems Review of Systems: All systems reviewed & are unremarkable except as noted in HPI and below PMFSH Past Medical History Medical History (Updated 02/10/24 @ 14:57 by Braden Fraser APRN) Anterolisthesis of lumbar spine Breast cancer CAD (coronary artery disease) CHF (congestive heart failure) 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 Surgical History Surgical History H/O mastectomy History of heart artery stent Family History Family History Other Family history of coronary artery disease Social History Social History Smoking status: Never smoker Second hand tobacco smoke exposure: No Alcohol intake: never Substance use: never Do You Feel Safe in your Home?: Yes Lack of Transportation: No Lack of Food: Never True Current Housing: I Have Housing Concerned About Future Housing: No Difficulty Paying Gas/Electric Bills: No Difficulty Paying for Meds: No Currently Unemployed: No Education: Grade School Difficulty w/ Childcare or Family Care: No Spiritual care concerns: Yes Exam Const: General: cooperative, comfortable, well developed, alert, awake and Physically active Orientation/consciousness: oriented to person, oriented to place and oriented to time Other: writhing in pain HENMT: Head: normal to inspection, normocephalic and atraumatic Ears: hearing grossly normal bilaterally and external ears normal Face/Nose/Sinus: Normal external nose present Eyes: General: appearance normal, both eyes and all related structures Periorbital: periorbital findings normal Sclera: sclerae normal Pupils: Equal, round and reactive pupils present Neck: Neck: normal visual inspection Chest: Chest palpation & inspection: normal inspection of the chest Resp: Effort & Inspection: normal respiratory effort, able to speak in complete sentences and no respiratory distress Cardio: Jugular venous distension: no JVD Skin: General skin exam: normal color and no rashes or lesions noted Neuro: General: oriented to person, oriented to place and oriented to time Cranial nerves: Yes Equal, round and reactive pupils present Other: 5/5 strength thoughout the left lower extremity, Sensation intact in all dermatomes of the lower extremity tested No saddle anesthesia. Extrem: General: normal to inspection Course Course Emergency Course: Ordered morphine and CT
[2024-02-09] MEDS: MORPHINE SULFATE (*CRX) 4 MG/ML INJ IV PUSH (22:30)
[2024-02-09 22:36] VITALS: BP 113/66; PULSE 101
[2024-02-09] MEDS: GABAPENTIN 300 MG CAPSULE PO (23:21)
[2024-02-09] MEDS: KETOROLAC 30 MG/ML VIAL (*BKC) IM (23:21)
[2024-02-09] MEDS: LORazepam (*CRX) 0.5 MG TABLET PO (23:38)
[2024-02-10] VITALS (8 sets, daily range): BP systolic 82–101; BP diastolic 45–54; PULSE 75–80; RESP 14–16; TEMP 35.8–36.4; O2SAT 93–97; BMI 32.6
[2024-02-10 07:05] LABS: Basophils Absolute Auto 0.03 K/mm3 (0.00-0.10); Basophils Percent Auto 0.3 % (0.0-1.0); Eosinophils Absolute Auto 0.34 K/mm3 (0.02-0.50); Eosinophils Percent Auto 3.8 % (1.0-6.0); Hematocrit 35.8 % (35.0-42.0); Hemoglobin 11.5 g/dL (11.7-13.8); Immature Granulocyte Absolute 0.03 K/mm3 (0.00-0.00); Immature Granulocyte Percent A 0.3 % (0.0-0.0); Lymphocytes Absolute Auto 0.77 K/mm3 (1.10-4.50); Lymphocytes Percent Auto 8.5 % (18.0-42.0); Mean Corpuscular HGB Conc 32.1 g/dL (32-36); Mean Corpuscular Hemoglobin 30.3 pg (27.0-31.0); Mean Corpuscular Volume 94.2 fL (78.0-102.0); Mean Platelet Volume 9.9 fl (9.2-11.8); Monocytes Absolute Auto 0.58 K/mm3 (0.10-0.90); Monocytes Percent Auto 6.4 % (2.0-11.0); Neutrophils Absolute Auto 7.28 K/mm3 (1.70-7.20); Neutrophils Percent Auto 80.7 % (50.0-70.0); Platelet Count Result 222 K/mm3 (150-420); Red Cell Distribution Width 15.9 % (11.6-14.4)
[2024-02-10 07:23] LABS: Alanine Aminotransferase 12 U/L (14-59); Albumin Level 2.2 g/dL (3.4-5.0); Alkaline Phosphatase 58 U/L (46-116); Anion Gap 7 mmol/L (4-12); Aspartate Amino Transferase 15 U/L (15-37); Bilirubin,Total 0.4 mg/dL (0.00-1.00); Blood Urea Nitrogen 17 mg/dL (7-18); Carbon Dioxide 29 mmol/L (21-32); Chloride 100 mmol/L (98-108); Estimated CRCL calculation 30 ml/min; Estimated Glomerular Filt Rate 44; Glucose 107 mg/dL (70-99); Magnesium 2.2 mg/dL (1.8-2.4); Osmolality Calculated 283 mOsm/kg (285-295); Phosphorus 4.4 mg/dL (2.6-4.7); Potassium 3.6 mmol/L (3.5-5.1); Sodium 136 mmol/L (136-145); Total Protein 5.9 g/dL (6.4-8.2)
[2024-02-10 07:27] LABS: Digoxin 0.9 ng/mL (0.9-2.0)
[2024-02-10] MEDS: FUROSEMIDE 40 MG TABLET PO (09:39)
[2024-02-10] MEDS: MONTELUKAST SODIUM 10 MG TABLET PO (09:39)
[2024-02-10] MEDS: GABAPENTIN 100 MG CAPSULE PO ×2 (09:39→16:54)
[2024-02-10] MEDS: ANASTROZOLE (*CHEMO) 1 MG TABLET PO (09:39)
[2024-02-10] MEDS: SACUBITRIL/VALSARTAN 24-26 MG TABLET 1 TAB PO ×2 (09:39→20:25)
[2024-02-10] MEDS: ATORVASTATIN 10 MG TABLET PO (09:40)
[2024-02-10] MEDS: SPIRONOLACTONE 25 MG TABLET PO (09:40)
[2024-02-10] MEDS: EMPAGLIFLOZIN 10 MG TABLET PO (09:40)
[2024-02-10] MEDS: carvediloL 12.5 MG TABLET PO (09:40)
[2024-02-10] MEDS: DIGOXIN TAB 125 MCG TABLET PO (09:41)
[2024-02-10] MEDS: ASPIRIN 81 MG ENTERIC TABLET PO (09:41)
--- NOTE | 2024-02-10 10:05 | PM.IMHP ---
H&P: HPI History of Present Illness Date/Time: 02/10/24 10:06 Chief Complaint: left leg pain Narrative: This is an 83 year old female patient admitted to hospital after 3rd ER visit for left leg/hip pain. Patient resides at [facility] and she recently had to start using a walker to get around. Patient has a history of a-fib, heart failure, breast cancer s/p left mastectomy undergoing radiation treatment, CAD with 2 stents and Pacemaker/Defibrillator in place. CT scan of lumbar spine showed spondylosis worst at L4/L5 and pelvis CT showed arthritic changes, no fractures. Patient noted swelling around both ankles but this is painful on left side. Patient also stated left calf was hurting. Patient denies dyspnea or chest pain. (not sure how documentation color changed from black to blue or how to change it back) Review of Systems Review of Systems: All systems reviewed & are unremarkable except as noted in HPI and below PMFSH Past Medical History Medical History (Updated 02/10/24 @ 14:57 by Braden Fraser APRN) Anterolisthesis of lumbar spine Breast cancer CAD (coronary artery disease) CHF (congestive heart failure) 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 Surgical History Surgical History H/O mastectomy History of heart artery stent Family History Family History Other Family history of coronary artery disease Social History Social History Smoking status: Never smoker Second hand tobacco smoke exposure: No Alcohol intake: never Substance use: never Do You Feel Safe in your Home?: Yes Lack of Transportation: No Lack of Food: Never True Current Housing: I Have Housing Concerned About Future Housing: No Difficulty Paying Gas/Electric Bills: No Difficulty Paying for Meds: No Currently Unemployed: No Education: Grade School Difficulty w/ Childcare or Family Care: No Spiritual care concerns: Yes Meds Home Medications and Allergies Home Medications Medication Instructions Recorded Confirmed Type anastrozole 1 mg tablet 1 mg PO DAILY 11/13/22 02/09/24 History atorvastatin 10 mg tablet 10 mg PO DAILY 11/13/22 02/09/24 History carvedilol 12.5 mg tablet 12.5 mg PO BID 11/13/22 02/09/24 History furosemide 40 mg tablet 40 mg PO DAILY 11/13/22 02/09/24 History montelukast 10 mg tablet 10 mg PO DAILY 11/13/22 02/09/24 History spironolactone 25 mg tablet 25 mg PO BID 11/13/22 02/09/24 History digoxin 125 mcg (0.125 mg) tablet 125 mcg PO DAILY 03/12/23 02/09/24 History aspirin 81 mg tablet 81 mg PO DAILY 11/23/23 02/09/24 History ipratropium 18 mcg-albuterol 103 1 spray inhalation QID 11/23/23 02/09/24 History mcg/actuation aerosol inhaler sacubitril 24 mg-valsartan 26 mg 1 tablet PO BID 11/23/23 02/09/24 History tablet (Entresto) empagliflozin 10 mg tablet 10 mg PO DAILY 01/25/24 02/09/24 History (Jardiance) gabapentin 100 mg capsule 100 mg PO BID #30 caps 01/25/24 02/09/24 Rx hydrocodone 7.5 mg-acetaminophen 1 tablet PO Q8H PRN pain #20 tabs 01/25/24 02/09/24 Rx 325 mg tablet Allergies Allergy/AdvReac Type Severity Reaction Status Date / Time TARA Inhibitors AdvReac Mild Cough Verified 02/09/24 21:58 Vital Signs Vital Signs - 24 hr 02/09/24 21:53 02/09/24 22:36 02/10/24 04:06 Temperature 36.8 C Pulse Rate 101 H 80 Respiratory Rate 24 H 16 Blood Pressure 113/66 Pulse Oximetry 95 Oxygen Delivery Room Air 02/10/24 05:27 02/10/24 08:00 02/10/24 09:40 Temperature 36.4 C Pulse Rate 76 76 Respiratory Rate 14 Blood Pressure 101/50 L Pulse Oximetry 93 Oxygen Delivery Room Air Room Air 02/10/24 09:41 Temperature Pulse Rate 76 Respiratory Rate Blood Pressure Pulse Oximetry Oxygen Delivery Exam Narrati
[2024-02-10 11:57] LABS: Glucose Point of Care 161 mg/dl (65-105)
[2024-02-10 12:44] LABS: Appearance Urine Cloudy (Clear); Bilirubin Urine Negative (Negative); Blood Urine 1+ (Negative); Color Urine Light Yellow (Yellow); Glucose Urine UA 3+ (Negative); Ketones Urine Negative (Negative); Leukocyte Esterase Ur 1+ LEU/UL (Negative); Nitrate Urine Positive (Negative); Protein Urine Trace (Negative); Urobilinogen Urine 0.2 mg/dL (0.2-1.0)
[2024-02-10 12:58] LABS: Add Urine Microscopic? YES; RBC Urine >75 /hpf (0-2); WBC Clumps Urine Present /hpf; WBC Urine >75 /hpf (0-3)
[2024-02-10 12:59] LABS: Bacteria Urine 4+ /hpf; Squamous Epithelial Cell Urine None Seen /hpf (Few)
[2024-02-10] MEDS: HYDROcodone/acetaminophen (*CRX) 5-325 MG TABLET 1 TAB PO (13:49)
[2024-02-10] MEDS: cefTRIAXone 2 GM/NS 100 ML 2 GM/100 ML BAG IVPB (16:54)
[2024-02-10] MEDS: HYDROcodone/acetaminophen (*CRX) 7.5-325 MG TABLET 1 TAB PO ×2 (16:54→20:25)
[2024-02-10] MEDS: ALBUMIN HUMAN 25% 25 GM/100 ML 100 ML IVPB ×2 (23:04)
[2024-02-11] VITALS: BP 101/57; PULSE 80; RESP 17; TEMP 36.3; O2SAT 95
[2024-02-11] MEDS: HYDROcodone/acetaminophen (*CRX) 5-325 MG TABLET 1 TAB PO ×2 (00:42→07:00)
[2024-02-11 06:51] LABS: Basophils Absolute Auto 0.04 K/mm3 (0.00-0.10); Basophils Percent Auto 0.5 % (0.0-1.0); Eosinophils Absolute Auto 0.48 K/mm3 (0.02-0.50); Eosinophils Percent Auto 5.4 % (1.0-6.0); Hematocrit 34.3 % (35.0-42.0); Hemoglobin 10.9 g/dL (11.7-13.8); Immature Granulocyte Absolute 0.03 K/mm3 (0.00-0.00); Immature Granulocyte Percent A 0.3 % (0.0-0.0); Lymphocytes Absolute Auto 0.79 K/mm3 (1.10-4.50); Mean Corpuscular HGB Conc 31.8 g/dL (32-36); Mean Corpuscular Hemoglobin 30.1 pg (27.0-31.0); Mean Corpuscular Volume 94.8 fL (78.0-102.0); Monocytes Absolute Auto 0.44 K/mm3 (0.10-0.90); Neutrophils Absolute Auto 7.03 K/mm3 (1.70-7.20); Neutrophils Percent Auto 79.8 % (50.0-70.0); Platelet Count Result 226 K/mm3 (150-420); Red Blood Count 3.62 M/mm3 (4.20-5.40); Red Cell Distribution Width 15.8 % (11.6-14.4); White Blood Count 8.8 K/mm3 (4.8-10.8)
[2024-02-11 07:09] LABS: Alanine Aminotransferase 13 U/L (14-59); Albumin Level 3.1 g/dL (3.4-5.0); Alkaline Phosphatase 50 U/L (46-116); Anion Gap 8 mmol/L (4-12); Aspartate Amino Transferase 15 U/L (15-37); Bilirubin,Total 0.3 mg/dL (0.00-1.00); Blood Urea Nitrogen 18 mg/dL (7-18); Calcium 8.2 mg/dL (8.5-10.1); Carbon Dioxide 28 mmol/L (21-32); Chloride 101 mmol/L (98-108); Estimated CRCL calculation 35 ml/min; Estimated Glomerular Filt Rate 54; Glucose 93 mg/dL (70-99); Magnesium 2.2 mg/dL (1.8-2.4); Osmolality Calculated 285 mOsm/kg (285-295); Phosphorus 3.8 mg/dL (2.6-4.7); Potassium 4.2 mmol/L (3.5-5.1); Sodium 137 mmol/L (136-145); Total Protein 6.5 g/dL (6.4-8.2)
[2024-02-11 08:00] VITALS: BP 113/53; PULSE 70; RESP 14; TEMP 36; TEMP 36.6; O2SAT 92
[2024-02-11 08:17] VITALS: BP 115/62; PULSE 70; RESP 14; O2SAT 92
[2024-02-11 08:19] VITALS: BP 127/56; PULSE 70; RESP 14; O2SAT 92
[2024-02-11] MEDS: UMECLIDINIUM/VILANTEROL 62.5-25 MCG ELLIPTA 1 PUFF INHALATION (09:11)
[2024-02-11] MEDS: ENOXAPARIN 40 MG/0.4 ML SYRINGE SUB-Q (09:11)
[2024-02-11] MEDS: SPIRONOLACTONE 25 MG TABLET PO (09:19)
[2024-02-11] MEDS: ASPIRIN 81 MG ENTERIC TABLET PO (09:19)
[2024-02-11] MEDS: EMPAGLIFLOZIN 10 MG TABLET PO (09:19)
[2024-02-11] MEDS: MONTELUKAST SODIUM 10 MG TABLET PO (09:19)
[2024-02-11] MEDS: HYDROcodone/acetaminophen (*CRX) 7.5-325 MG TABLET 1 TAB PO ×2 (09:19→15:33)
[2024-02-11 09:20] VITALS: PULSE 70
[2024-02-11] MEDS: ANASTROZOLE (*CHEMO) 1 MG TABLET PO (09:20)
[2024-02-11] MEDS: carvediloL 6.25 MG TABLET PO (09:20)
[2024-02-11] MEDS: DIGOXIN TAB 125 MCG TABLET PO (09:20)
[2024-02-11] MEDS: GABAPENTIN 100 MG CAPSULE PO (09:20)
[2024-02-11] MEDS: SACUBITRIL/VALSARTAN 24-26 MG TABLET 1 TAB PO (09:21)
[2024-02-11] MEDS: FUROSEMIDE 40 MG TABLET PO (09:22)
[2024-02-11] MEDS: ATORVASTATIN 10 MG TABLET PO (10:11)
--- NOTE | 2024-02-11 12:59 | PM.DS ---
DS: Admitting Diagnosis Discharge Date 02/11/2024 Admitting Diagnosis Lumbar radiculopathy, CHF, breast cancer, degenerative joint disease at the lumbar spine, abnormal urinalysis DS: Discharge Diagnosis Discharge Diagnosis (1) Ankle swelling: Code(s): M25.473 - Effusion, unspecified ankle Status: Acute (2) Abnormal urinalysis: Code(s): R82.90 - Unspecified abnormal findings in urine Status: Acute (3) Breast cancer: Code(s): C50.919 - Malignant neoplasm of unspecified site of unspecified female breast Status: Chronic (4) Degenerative joint disease (DJD) of lumbar spine: Code(s): M47.816 - Spondylosis without myelopathy or radiculopathy, lumbar region Status: Chronic (5) Centeno cyst: Code(s): M71.20 - Synovial cyst of popliteal space [Centeno], unspecified knee Status: Acute DS: Summary Hospital Course Hospital Course: patient had visited the emergency department 3 times in the past 2 weeks with left leg pain. On this visit patient indicating that her legs hurt. Imaging of the back showed spondylosis and it was felt that her pain was related to lumbar radiculopathy. As it was the 3rd visit in a short time frame and she kept returning with significant pain she was admitted for pain control. On examination patient had bilateral ankle swelling that was significant she also had a large palpable lump left. Concern for DVT so ultrasound obtained, negative for DVT. On further examination this appears to be a very large Centeno's cyst. There was no erythema or fluctuance to indicate need incision and drainage. Compression was applied with Peter wrap. Patient received additional diuresis for extremity swelling. She was on Rocephin for possible UTI. Patient feeling better ambulating better wanting discharge back to the [facility]. [facility] made sure the patient could ambulate and excepted her back. Status at Discharge Cognitive/behavioral status at discharge: awake alert oriented to baseline and pleasant Functional status at discharge: uses cane/walker Overall status at discharge: patient is progressing back to baseline Time Spent with Patient Time attestation: Total time spent providing and/or coordinating discharge services: 100 minutes Time spent: Greater than 30 minutes ([id number]) Exam Narrative: APPEARANCE: Awake, alert, oriented, no acute distress Head: atraumatic. EYES: EOMI, NOSE: Atraumatic NECK: Trachea midline RESPIRATORY: No increased rate of breathing, clear to auscultation CARDIOVASCULAR: Right sided chest pacemaker, regular rate and rhythm to auscultation ABDOMINAL: Non-distended soft nontender MUSCULOSKELETAL: Bilateral ankle swelling 3-4+ edema, painful on left ankle, left calf tenderness/firmness, left hip tender to palpation NEURO: Awake, alert, oriented, no focal deficits noted PSYCHIATRIC: Normal affect DS: Data Data Completed and Pending Labs on day of discharge: Labs from last 24 hours 02/11/24 02/10/24 06:44 12:38 WBC 8.8 RBC 3.62 L Hgb 10.9 L Hct 34.3 L MCV 94.8 MCH 30.1 MCHC 31.8 L RDW 15.8 H Plt Count 226 MPV 10.0 Immature Gran % (Auto) 0.3 H Neut % (Auto) 79.8 H Lymph % (Auto) 9.0 L [place] % (Auto) 5.0 Eos % (Auto) 5.4 Baso % (Auto) 0.5 Lymph # (Auto) 0.79 L [place] # (Auto) 0.44 Eos # (Auto) 0.48 Baso # (Auto) 0.04 Abs Immat Gran (auto) 0.03 H Absolute Neuts (auto) 7.03 Absolute Nucleated RBC 0.00 Nucleated RBC % 0.0 Sodium 137 Potassium 4.2 Chloride 101 Carbon Dioxide 28 Anion Gap 8 BUN 18 Creatinine 0.99 Estim Creat Clear Calc 35 Estimated GFR 54 L Glucose 93 Calculated Osmolality 285 Calcium 8.2 L Phosphorus 3.8 Magnesium 2.2 Total Bilirubin 0.3 AST 15 ALT 13 L Alkaline Phosphatase 50 Total Protein 6.5 Albumin 3.1 L Urine Color Light yellow Urine Appearance Cloudy A Urine pH 6.0 Ur Specific [place] 1.0
[2024-02-11] MEDS: cefTRIAXone 2 GM/NS 100 ML 2 GM/100 ML BAG IVPB (15:32)
--- NOTE | 2024-02-11 16:45 | PC.NURSE ---
Discharge instructions explained to patient and son. All questions answered. Pt transported via wheelchair to front of hospital and assisted into private vehicle.
--- NOTE | 2024-02-12 11:10 | PC.NURSE ---
Discharge call back complete, doing well, no questions or cocnerns from patient thinks instructions were simple
--- NOTE | 2024-02-14 09:46 | PC.NURSE ---
Urine cx growing Klebsiella pneumonia. Pt dc on cefdinir which is susceptible.
== END 2024-02-11 16:45 ==
LOC: CHSED 02-10 04:04 → CHS2ND 02-10 08:00
PROVIDERS: Admitting Provider Internal Medicine; Emergency Provider Family Medicine; PCP Internal Medicine; Visit Provider Nurse Practitioner
DX: M47.26 Other spondylosis with radiculopathy, lumbar region (principal); M71.22 Synovial cyst of popliteal space [Baker], left knee; M25.472 Effusion, left ankle; M25.471 Effusion, right ankle; N39.0 Urinary tract infection, site not specified; I50.9 Heart failure, unspecified; C50.919 Malignant neoplasm of unspecified site of unspecified female breast; I25.10 Atherosclerotic heart disease of native coronary artery without angina pectoris; M81.0 Age-related osteoporosis without current pathological fracture; Z79.82 Long term (current) use of aspirin; Z79.84 Long term (current) use of oral hypoglycemic drugs; Z79.51 Long term (current) use of inhaled steroids; Z79.811 Long term (current) use of aromatase inhibitors; Z95.5 Presence of coronary angioplasty implant and graft
CPT/HCPCS: 36415; 72131; 72192; 80053; 80069; 80162; 81001; 82948; 83735; 85025; 87077; 87086; 87088; 87186; 93970; 96365; 96366; 96367; 96372; 96375; 97161; 97165; 99285; A9270; G0378; J0696; J1650; J1885; J2270; P9047

== ENCOUNTER 2024-03-26 10:42 | Outpatient (NON) | payer MEDICARE, MEDICAID, SELFPAY ==
[2024-03-26 11:04] LABS: Hematocrit 38.3 % (35.0-42.0); Hemoglobin 11.9 g/dL (11.7-13.8); Mean Corpuscular HGB Conc 31.1 g/dL (32-36); Mean Corpuscular Hemoglobin 29.6 pg (27.0-31.0); Mean Corpuscular Volume 95.3 fL (78.0-102.0); Platelet Count Result 160 K/mm3 (150-420); Red Blood Count 4.02 M/mm3 (4.20-5.40); Red Cell Distribution Width 15.9 % (11.6-14.4); White Blood Count 8.1 K/mm3 (4.8-10.8)
[2024-03-26 11:34] LABS: Alanine Aminotransferase 11 U/L (14-59); Albumin Level 2.5 g/dL (3.4-5.0); Alkaline Phosphatase 78 U/L (46-116); Anion Gap 8 mmol/L (4-12); Aspartate Amino Transferase 11 U/L (15-37); Bilirubin,Total 0.5 mg/dL (0.00-1.00); Blood Urea Nitrogen 18 mg/dL (7-18); Calcium 8.1 mg/dL (8.5-10.1); Carbon Dioxide 28 mmol/L (21-32); Chloride 107 mmol/L (98-108); Digoxin 0.8 ng/mL (0.9-2.0); Estimated Glomerular Filt Rate 60; Glucose 86 mg/dL (70-99); NT Pro B Type Natriuretic Pept 2603 pg/mL (0-450); Osmolality Calculated 296 mOsm/kg (285-295); Potassium 4.2 mmol/L (3.5-5.1); Sodium 143 mmol/L (136-145); Total Protein 5.5 g/dL (6.4-8.2)
== END 2024-03-26 10:43 | disposition home or self-care (01) ==
LOC: CHSLAB 10:45
PROVIDERS: Visit Provider Internal Medicine
DX: I50.9 Heart failure, unspecified (principal); J44.9 Chronic obstructive pulmonary disease, unspecified
CPT/HCPCS: 80053; 80162; 83880; 85027

== ENCOUNTER 2024-04-04 19:50 | Inpatient (IN) | payer MEDICARE, MEDICAID, SELFPAY ==
[2024-04-04] VITALS (25 sets, daily range): BP systolic 121–156; BP diastolic 69–106; PULSE 102–137; RESP 12–28; TEMP 36.6; O2SAT 90–100
--- NOTE | ~2024-04-04 | XR_ITS ---
EXAMINATION: XR chest 1V portable DATE: 04/04/2024 22:11 INDICATION: Shortness of breath and congestive heart failure. TECHNIQUE: frontal view of the chest was obtained. COMPARISON: Chest radiograph dated 03/12/2023 FINDINGS: Asymmetric increased lucency at the left lower lung zone with new surgical clips at the left chest an d axilla consistent with interval left mastectomy. HC opacities at the neck was prepped and No pneumo thorax or left-sided pleural effusion. Mild increased interstitial pattern in the bilateral mid and l ower lung zones most likely mild pulmonary edema with differential including pneumonia. No pneumothor ax or definitive pleural effusion. Cardiomegaly. Dual lead pacemaker/AICD seen with leads projecting over the expected locations of the right atrium and right ventricle. IMPRESSION: 1. Mild interstitial opacities in the bilateral mid and lower lung zones which could represent conges tive heart failure related mild pulmonary edema or pneumonia. 2. Cardiomegaly. Reviewed, dictated and finalized at location A. IMPRESSION: 1. Mild interstitial opacities in the bilateral mid and lower lung zones which could represent congestive heart failure related mild pulmonary edema or pneumo brandyn. 2. Cardiomegaly.
--- NOTE | ~2024-04-04 | US_ITS ---
EXAMINATION: US venous doppler [facility] DATE: 04/05/2024 15:27 INDICATION: Lower limb swelling and tenderness. TECHNIQUE: Grayscale ultrasound images without and with compression and Doppler ultrasound images of the bilateral lower extremity veins were obtained. COMPARISON: None. FINDINGS: The visualized portions of right common femoral vein, profunda (deep) femoral vein, femoral vein, pop liteal vein, peroneal veins, posterior tibial veins, and greater saphenous vein outflow are patent. The visualized portions of left common femoral vein, profunda femoral vein, femoral vein, popliteal v ein, peroneal veins, posterior tibial veins, and greater saphenous vein outflow are patent. IMPRESSION: 1. No deep venous thrombosis. Reviewed, dictated and finalized at location E.
--- NOTE | 2024-04-04 20:01 | ED.GENADULT ---
HPI - General Adult General Chief complaint: Extremity Problem,Nontraumatic Stated complaint: hip pain left Time Seen by Provider: 04/04/24 19:54 History of Present Illness HPI narrative: patient is in significant pain and is a poor historian. She cannot provide much information other than she has her typical pain in her hip. patient is moaning in pain. This is an 83-year-old female with a well-documented history lumbar radiculopathy presenting for recurrence of her left hip pain. She has multiple ER visits for her hip pain including admission at [facility]. Patient has pain in her left lower back that radiates down the back of her left leg. She has had multiple sets of x-rays, CTs and an MRI that showed significant degenerative joint disease any pinched nerve that is the cause of her pain. Patient does not have any weakness. No other red flags. She says she is taking her gabapentin but does not know what other med she has taken for pain today. While the patient came to the ER for hip pain while in the room she became very tachycardic, diaphoretic and short of breath. Patient has a history of CHF. Patient's son states her legs are significantly more swollen than usual. Related Data Home Medications Medication Instructions Recorded Confirmed anastrozole 1 mg tablet 1 mg PO DAILY 11/13/22 02/09/24 atorvastatin 10 mg tablet 10 mg PO DAILY 11/13/22 02/09/24 montelukast 10 mg tablet 10 mg PO DAILY 11/13/22 02/09/24 spironolactone 25 mg tablet 25 mg PO BID 11/13/22 02/09/24 digoxin 125 mcg (0.125 mg) tablet 125 mcg PO DAILY 03/12/23 02/09/24 aspirin 81 mg tablet 81 mg PO DAILY 11/23/23 02/09/24 ipratropium 18 mcg-albuterol 103 1 spray inhalation QID 11/23/23 02/09/24 mcg/actuation aerosol inhaler sacubitril 24 mg-valsartan 26 mg 1 tablet PO BID 11/23/23 02/09/24 tablet (Entresto) empagliflozin 10 mg tablet 10 mg PO DAILY 01/25/24 02/09/24 (Jardiance) Allergies Allergy/AdvReac Type Severity Reaction Status Date / Time TARA Inhibitors AdvReac Mild Cough Verified 02/09/24 21:58 [facility] Past Medical History Medical History Anterolisthesis of lumbar spine Breast cancer CAD (coronary artery disease) CHF (congestive heart failure) 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 Surgical History Surgical History H/O mastectomy History of heart artery stent Family History Family History Other Family history of coronary artery disease Social History Social History Smoking status: Never smoker Second hand tobacco smoke exposure: No Alcohol intake: never Substance use: never Do You Feel Safe in your Home?: Yes Lack of Transportation: No Lack of Food: Never True Current Housing: I Have Housing Concerned About Future Housing: No Difficulty Paying Gas/Electric Bills: No Difficulty Paying for Meds: No Currently Unemployed: No Education: Grade School Difficulty w/ Childcare or Family Care: No Spiritual care concerns: Yes Exam Narrative: APPEARANCE: Patient appears to be in pain Head: atraumatic. EYES: EOMI, NOSE: Atraumatic NECK: Trachea midline RESPIRATORY: Tachypneic, Crackles CARDIOVASCULAR: RRR, bilateral pitting edema of the legs ABDOMINAL: Non-distended MUSCULOSKELETAl: Straight leg positive on the left, negative on the right, neurovascularly intact NEURO: Alert. Moving 4/4 extremities SKIN:: cool diaphoretic PSYCHIATRIC: in pain Course Vital Signs Vital signs: Vital Signs Temperature 97.9 F 04/04/24 19:58 Pulse Rate 137 H 04/04/24 19:58 Respiratory Rate 16 04/04/24 19:58 Blood Pressure 156/106 H 04/04/24 19:58 Pulse Oximetry 90 04/04/24 19:58 Oxygen Delivery Room Air 04/04/24 19:58 [place]
--- NOTE | 2024-04-04 20:37 | PC.NURSE ---
EDP at bedside at 2015, and reports that he wants to treat the patient's SVT. EDP orders 6 mg of Adenosine, administered IVP at 2020 by EDP Gopal. 12 mg of Adenosine IVP administered at 2022 by EDP Gopal. No change in heart rhythm. VORB 6 mg of Etomidate IVP at 2023. EDP cardioverts at 2025 100J. Heart rhythm remains in SVT, second cardioversion at 150J at 2026 without change in heart rhythm. Patient becomes altered, bradypneic, and desaturates to 78%. BVM with 15 LPM with improvement to 98%. Respiratory at bedside. Patient placed on 15 LPM of supplemental oxygen via NRB. VORB for 10 mg of Diltiazem at 2035. Additional 15 mg of Diltiazem at 2037. 0.5 mg of Dilaudid IVP administered at 2039. Patient heart rhythm becomes sinus tach at 110. Patient verbally aroused and able to follow commands. Decision to place patient on BiPap.
--- NOTE | 2024-04-04 20:45 | ECG_ITS ---
Test Date: 2024-04-04 20:47:22 Measurements Intervals [place] Rate: 109 P: 52 ME: 170 QRS: -42 QRSD: 113 T: 136 QT: 359 QTc: 485 Interpretive Statements SINUS TACHYCARDIA WITH OCCASIONAL VENTRICULAR PREMATURE COMPLEXES INCOMPLETE LEFT BUNDLE BRANCH BLOCK ABNORMAL ECG Compared to ECG 04/04/2024 20:19:31 SINUS RHYTHM HAS BEEN RESTORED Electronically Signed On 04-05-2024 08:43:32 CDT by Antione Mckenzie M.D.
--- NOTE | 2024-04-04 21:15 | ECG_ITS ---
Test Date: 2024-04-04 20:19:31 Measurements Intervals [place] Rate: 139 P: 55 ME: 115 QRS: -72 QRSD: 144 T: 40 QT: 315 QTc: 480 Interpretive Statements SUSPECT ATRIAL FLUTTER WITH TWO-TO-ONE CONDUCTION INCOMPLETE LEFT BUNDLE BRANCH BLOCK ABNORMAL ECG No previous ECG available for comparison Electronically Signed On 04-05-2024 08:42:39 CDT by Antione Mckenzie M.D.
[2024-04-04 21:26] LABS: Basophils Percent Auto 0.3 % (0.2-1.2); Eosinophils Absolute Auto 0.2 K/mm3 (0-0.3); Eosinophils Percent Auto 1.3 % (0-4.4); Hematocrit 47.9 % (37.0-47.0); Hemoglobin 14.9 g/dL (12.0-15.0); Immature Granulocyte Absolute 0.15 K/mm3 (0.00-0.031); Immature Granulocyte Percent A 1.2 % (0-0.5); Lymphocytes Absolute Auto 0.83 K/mm3 (0.9-3.2); Lymphocytes Percent Auto 6.6 % (18.3-44.2); Mean Corpuscular HGB Conc 31.1 g/dl (32-36); Mean Corpuscular Hemoglobin 30.1 pg (26-34); Mean Corpuscular Volume 96.8 fl (80-100); Mean Platelet Volume 10.6 fl (7.4-10.4); Monocytes Absolute Auto 0.7 K/mm3 (0.1-0.6); Monocytes Percent Auto 5.2 % (2.6-8.5); Neutrophils Absolute Auto 10.8 K/mm3 (1.3-6.7); Neutrophils Percent Auto 85.4 % (45.5-73.1); Platelet Count Result 212 k/mm3 (150-375); Red Blood Count 4.95 M/mm3 (4.2-5.4); Red Cell Distribution Width 15.4 % (11.5-14.5); White Blood Count 12.6 K/mm3 (4.5-10.0)
[2024-04-04 21:31] LABS: Add Urine Microscopic? YES; Appearance Urine Cloudy (Clear); Bacteria Urine 4+ /hpf; Bilirubin Urine Negative (Negative); Blood Urine 1+ (Negative); Color Urine Yellow (Yellow); Glucose Urine UA 3+ mg/dL (Negative); Ketones Urine Negative (Negative); Leukocyte Esterase Ur 3+ LEU/UL (Negative); Nitrate Urine Positive (Negative); Non Pathogenic Casts 0-2; Protein Urine Trace mg/dL (Negative); RBC Urine 0-2 /hpf (0-2); Specific Grav Ur 1.016 (1.001-1.035); Squamous Epithelial Cell Urine None Seen /hpf (Few); Urobilinogen Urine 0.2 mg/dL (<2.0); WBC Urine >100 /hpf (0-3); pH Urine 5.5 (5.0-9.0)
[2024-04-04 21:37] LABS: Prothrombin Time 13.3 Seconds (11.1-14.7)
[2024-04-04 21:38] LABS: Alanine Aminotransferase 13 U/L (6-35); Albumin Level 3.7 g/dL (3.5-5.1); Alkaline Phosphatase 118 U/L (38-126); Anion Gap 9 mmol/L (4-12); Aspartate Amino Transferase 30 U/L (14-36); Bilirubin,Total 0.3 mg/dL (0.2-1.3); Blood Urea Nitrogen 17 mg/dL (7-17); Calcium 8.3 mg/dL (8.4-10.2); Carbon Dioxide 25 mmol/L (22-30); Chloride 104 mmol/L (98-107); Estimated Glomerular Filt Rate > 60; Glucose 156 mg/dL (65-110); Sodium 138 mmol/L (137-145)
[2024-04-04 21:50] LABS: NT Pro B Type Natriuretic Pept 5280 pg/mL (19.9-100)
[2024-04-04] MEDS: FUROSEMIDE INJ 40 MG/4 ML VIAL (22:04)
[2024-04-04] MEDS: LIDOCAINE 5% PATCH 1 PATCH TRANSDERM (22:18)
--- NOTE | 2024-04-04 22:32 | ECG_ITS ---
Test Date: 2024-04-04 22:39:04 Measurements Intervals [place] Rate: 108 P: 38 WV: 157 QRS: -60 QRSD: 142 T: 67 QT: 375 QTc: 504 Interpretive Statements SINUS TACHYCARDIA WITH OCCASIONAL VENTRICULAR PREMATURE COMPLEXES LEFT BUNDLE BRANCH BLOCK ABNORMAL ECG Compared to ECG 04/04/2024 20:47:22 NO SIGNIFICANT CHANGE Electronically Signed On 04-05-2024 08:45:57 CDT by Antione Mckenzie M.D.
[2024-04-04] MEDS: FUROSEMIDE INJ 40 MG/4 ML VIAL IV PUSH (22:39)
--- NOTE | 2024-04-04 23:13 | PM.IMHP ---
H&P: HPI History of Present Illness Date/Time: 04/04/24 23:13 Chief Complaint: Left hip pain Narrative: 83-year-old female with past medical history of atrial fibrillation, pacemaker, CHF, chronic kidney disease, chronic peripheral edema and lumbar radiculopathy who presented to the ER via private vehicle from independent living facility in the company of her son who presented due to left hip and leg pain. Patient reports he has intermittent left hip and leg pain. Pain is usually in the left hip and binder left knee. She was actually admitted to [facility] in January for this in the past and had extensive evaluation including CT which demonstrated L4-L5 spondylosis. In the ER today patient had positive left straight leg raise. She was writhing around in bed in uncomfortable per ER physician report. Her sensation was intact in bilateral lower extremities and she was able to move them freely. She does report chronic urinary frequency and urgency. She denies dysuria. She does have intermittent urinary incontinence which is unchanged from baseline. He has not had any fevers or chills. She denies nausea or vomiting and reports having normal bowel movements. During ER providers evaluation patient the patient developed narrow complex tachycardia with rate of 144. She acutely became diaphoretic and hypoxic. She was given 2 doses of adenosine both 6 and 12 mg for possible SVT with no change in her rhythm. She was placed on non-rebreather given etomidate. Cardioversion was attempted twice in the ER with no response. Blood pressures were elevated to the 180s over 110s. Patient was given a dose of towel is am, Lasix and placed on BiPAP. The patient received half a mg of Dilaudid. The patient had rapid improvement in her oxygenation and blood pressure. She denied having any chest pain or shortness of breath prior to this acute event. She does have chronic lower extremity swelling. Her son thought that her lower extremity swelling could be worse than her baseline. The patient tells me that her lower extremity swelling is stable and chronic. However whenever I was evaluating the patient she actually denied having any current acute left hip her leg pain. She states that when she does have a pain it is sharp and stabbing and uncontrollable. She has it intermittently with no real pattern. She does not know what occurred to make her pain worse today. Her pain has not recurred since she arrived on the medical floor. She was given a lidocaine patch and Valium in the ER without improvement in symptoms. During the time of my evaluation the patient started yelling out and stating she is having a severe cramp in her right calf. She states that this also happens on occasion and intermittently. She became acutely distressed and was moaning and crying. She stated that when this happens at home she is usually able to stand walk around in her symptoms improve. The patient was stable from a respiratory standpoint. Nursing staff discontinued patient's BiPAP and patient stood up her leg cramp immediately went away. Afterwards she fell asleep in is not had any distress since then. Patient reports that the only thing she takes for pain at home besides gabapentin is [id number] Tylenol. The patient's UA performed in the ER is suspicious for UTI but patient has urinary symptoms is unchanged. Patient was placed on empiric antibiotic therapy with Rocephin. Review of Systems Review of Systems: 12 systems were reviewed with pertinent positives and negatives per HPI. Except as documented in the HPI, all other systems were reviewed and are negative. 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
[2024-04-04 23:38] LABS: Alveolar/Arterial O2 Gradient 182.4 mmHg; Base Excess ABG 0.7 mEq/l (+/-2.0); Fractional Inspired Oxygen 50 %; HCO3 ABG 25.4 mEq/l (22.0-26.0); Oxygen Content ABG 20.8 %vol (16.0-22.0); Oxygen Saturation ABG 98.6 % (95.0-100.0); PCO2 ABG 40.9 mmHg (35.0-45.0); PO2 ABG 128.1 mmHg (80.0-100.0); PO2 FiO2 Ratio Arterial Blood 2.56 %; pH ABG 7.411 (7.350-7.450)
--- NOTE | 2024-04-04 23:58 | ADMGEN ---
This patient, Jennifer Moreau, was admitted to IMU Room 213-01. Patient/family oriented to hospital policies and general routines including ID bracelet, bed and alarms, visiting hours, pain management, procedures, bathroom and other care routines, personal items, smoking policy, room service/diet, and visiting hours. Information on how to activate the Rapid Response Team has been discussed. Patient/Family are encouraged to report perceived risks to care and to ask questions if they do not understand what they are told or what they should do.
[2024-04-05] VITALS (25 sets, daily range): BP systolic 91–152; BP diastolic 47–75; PULSE 85–128; RESP 15–20; TEMP 35.9–37.1; O2SAT 91–100; BMI 49.7
[2024-04-05 00:13] LABS: Device NON-INVASIVE VENT; Site Drawn RIGHT BRACHIAL
[2024-04-05 00:14] LABS: Non-Invasive Expiratory Pressure 5 CMH2O; Non-Invasive Inspiratory Pressure 14 CMH2O; Non-Invasive Vent Rate 14 /MIN
[2024-04-05] MEDS: HYDROmorphone HCL INJ (*CRX) 1 MG/ML SYR 0.5 MG IV PUSH (00:32)
[2024-04-05 01:05] LABS: Troponin I 0.904 ng/mL (0.000-0.034)
[2024-04-05 01:20] LABS: Procalcitonin 0.2 ng/mL
[2024-04-05] MEDS: METOPROLOL TARTRATE INJ 5 MG/5 ML VIAL IV PUSH (06:54)
[2024-04-05] MEDS: ASPIRIN 81 MG ENTERIC TABLET PO (08:39)
[2024-04-05] MEDS: SACUBITRIL/VALSARTAN 24-26 MG TABLET 1 TAB PO ×2 (08:40→20:52)
[2024-04-05] MEDS: SPIRONOLACTONE 25 MG TABLET PO (08:40)
[2024-04-05] MEDS: ANASTROZOLE (*CHEMO) 1 MG TABLET PO (08:40)
[2024-04-05] MEDS: MONTELUKAST SODIUM 10 MG TABLET PO (08:40)
[2024-04-05] MEDS: GABAPENTIN 300 MG CAPSULE PO ×2 (08:40→16:47)
[2024-04-05] MEDS: DIGOXIN TAB 125 MCG TABLET PO (08:40)
[2024-04-05] MEDS: FUROSEMIDE 40 MG TABLET PO ×2 (08:41→16:48)
[2024-04-05] MEDS: carvediloL 12.5 MG TABLET PO ×2 (08:41→20:53)
[2024-04-05] MEDS: EMPAGLIFLOZIN 10 MG TABLET PO (08:41)
[2024-04-05] MEDS: ENOXAPARIN 40 MG/0.4 ML SYRINGE SUB-Q (09:00)
--- NOTE | 2024-04-05 09:56 | PM.IMPN ---
Progress Note: A&P Assessment and Plan (1) Heart failure, chronic, with acute decompensation: Qualifiers: Heart failure type: systolic Qualified Code(s): I50.23 - Acute on chronic systolic (congestive) heart failure Code(s): I50.9 - Heart failure, unspecified Status: Acute Assessment and Plan: - Will resume patient's home diuretic therapy - coreg is 12.5 mg b.i.d. (increased)- tele monitor The patient did have some mildly elevated troponins this is likely due to the 2 attempts of cardioversion. Patient was not having any preceding chest pain or symptoms. Troponins were only marginally elevated. Patient is not having any chest pain orthopnea or paroxysmal nocturnal dyspnea at the moment. -Will resume the patient's home Lasix and spironolactone. - Will also continue Entresto and digoxin. -Will monitor electrolyte panel since patient received an extra dose of Lasix. - ordered echocardiogram to further evaluate cardiac structure of function and evaluate whether she has had acute change in her cardiac output. (2) Chronic lumbar radiculopathy: Code(s): M54.16 - Radiculopathy, lumbar region Status: Acute Assessment and Plan: - continue patient's home Neurontin. Will continue p.r.n. Tylenol and will add [place] 5/325 q.6 hours for pain 4-10 and continue Dilaudid for breakthrough pain. If the patient has recurrent also cramps will consider anti spasmodic agent as well. She very well may be having some spasm causing some of her radicular pain symptoms. (3) Narrow complex tachycardia: Code(s): I47.19 - Other supraventricular tachycardia Status: Acute Assessment and Plan: - coreg was decreased (last hospitalization) - pt was out of meds for 2 days - coreg 12.5 mg (4) Abnormal urinalysis: Code(s): R82.90 - Unspecified abnormal findings in urine Status: Acute Assessment and Plan: - abnormal urinalysis with chronic urinary urgency frequency with intermittent urinary incontinence - mild leukocytosis but no fever. - empiric antibiotic therapy with Rocephin. Urine cultures are pending. (5) Leg pain: Code(s): M79.606 - Pain in leg, unspecified Status: Acute Assessment and Plan: reports leg pain to the left - noted doppler completed in january- negative - will repeat to ensure no DVT Time Spent With Patient Time with patient: Greater than 35 minutes Subjective Date/time seen: 04/05/24 09:56 Interval history: Narrative retrieved from H/P: 83-year-old female with past medical history of atrial fibrillation, pacemaker, CHF, chronic kidney disease, chronic peripheral edema and lumbar radiculopathy who presented to the ER via private vehicle from independent living facility in the company of her son who presented due to left hip and leg pain. Patient reports he has intermittent left hip and leg pain. Pain is usually in the left hip and binder left knee. She was actually admitted to [facility] in January for this in the past and had extensive evaluation including CT which demonstrated L4-L5 spondylosis. In the ER today patient had positive left straight leg raise. She was writhing around in bed in uncomfortable per ER physician report. Her sensation was intact in bilateral lower extremities and she was able to move them freely. She does report chronic urinary frequency and urgency. She denies dysuria. She does have intermittent urinary incontinence which is unchanged from baseline. He has not had any fevers or chills. She denies nausea or vomiting and reports having normal bowel movements. During ER providers evaluation patient the patient developed narrow complex tachycardia with rate of 144. She acutely became diaphoretic and hypoxic. She was given 2 doses of adenosine both 6 and 12 mg for possible SVT with no change in her rhythm. She was placed on non-rebreather given etomidate. Cardioversion was attempted twice in the ER wit
--- NOTE | 2024-04-05 10:59 | PC.NURSE ---
20 beat run of Vtach. Pt asymptomatic. BP 92/47. Provider, Maria Elena OROSCO notified. Order for cardiology consult received.
--- NOTE | 2024-04-05 12:01 | PM.CNCAR ---
Assessment and Plan Assessment and plan (1) Narrow complex tachycardia: Code(s): I47.19 - Other supraventricular tachycardia Status: Acute Plan This is an 83-year-old lady with a history of coronary disease, she reports previous PCI and is on standard medical therapy for left ventricular systolic dysfunction she also has a chronically implanted defibrillator which she says was recently last year moved from left side to right side so that breast cancer on the left side could be treated with radiation. Her physicians in [place] are providing excellent care for her. She came to this hospital because of severe hip pain and in the emergency room was quite tachycardic. I would conclude that she was in sinus tachycardia at this time despite the appearance of her ECG as SVT, atrial flutter or ventricular tachycardia would have responded either to the adenosine or to DC cardioversion. What appears to have occurred is that as her pain was controlled her heart rate gradually decreased and she is now clearly in sinus rhythm. Her standard guideline directed medical therapy should be continued and at this point I do not believe there is need for further cardiovascular assessment at [facility]. She is receiving excellent care by her precision millwright up in [place]. The rest remainder of her management here will be deferred to the primary team Antione Mckenzie MD [facility] History of Present Illness History of Present Illness Consult date/time: 04/05/24 12:01 Reason For Visit: Acute CHF Narrative: This is an 83-year-old woman who I am seeing at the request of the hospitalist because of a tachycardia that was evident yesterday in the emergency room. The reason for the consult request according to the chart is CHF but there is no clinical evidence of that in my opinion. The patient has a history of a cardiomyopathy and follows with precision millwright up in [facility]. She according to the patient she has a history of coronary artery disease with previous PCI and therefore presumably has ischemic cardiomyopathy and is on standard guideline directed medical therapy for this and she has a defibrillator implanted which is somewhat interesting since there are DNR orders on her chart. In any event she came to [facility] last night because of severe left hip pain she has arthritis in the hip in with had excruciating pain in the region of her left hip radiating into the left leg. She was treated with analgesics in the hospital and has significant improvement in her symptoms. While she was in the emergency room with this complaint she was very tachycardic. The electrocardiogram demonstrated a regular narrow QRS tachycardia with a heart rate of 139. Before that she was in sinus rhythm/sinus tachycardia and after that she was in sinus rhythm sinus/sinus tachycardia. She was treated in the emergency room with adenosine which had no affect on the rhythm and she was actually electrically cardioverted twice which had no affect on the rhythm. As her pain was controlled she felt better her heart rate gradually came under better control and she felt better. In the IMU she is in sinus rhythm/sinus tachycardia she does not have any cardiovascular complaints such as chest pain orthopnea PND palpitations or syncope. She does have some lower extremity edema which is chronic she says possibly although a bit worse than normal. She lives in an assisted living facility up in the [facility] and is unknown to me prior to this consultation. After the admission troponin levels were sampled there jessica slightly to from unremarkable to 0.9 and to just over 1.0. She is on standard guideline directed medical therapy for car cardiomyopathy including aspirin, carvedilol, Entresto and Jardiance along with spironolactone. Review of Systems Constitutional: Constitutional: Reports no additional constitutional complaints Eyes: Eyes: Reports no additional eye complaints
[2024-04-05] MEDS: ATORVASTATIN 10 MG TABLET PO (14:03)
[2024-04-06] VITALS (11 sets, daily range): BP systolic 111–118; BP diastolic 59–80; PULSE 74–86; RESP 18–22; TEMP 36.2–36.6; O2SAT 94–97
--- NOTE | 2024-04-06 | ECHO_ITS ---
Patient Info Name: Jennifer Moreau Age: 83 years : 1940 Gender: Female Ht: 60 in Wt: 168 lbs BSA: 1.83 m2 HR: 74 bpm BP: 111 / 80 mmHg Heart Rhythm: Sinus Rhythm Technical Quality: Good Exam Date: 04/06/2024 10:17 AM Exam Location: Echo Lab Patient Status: Inpatient Admit Date: 04/05/2024 Staff Ordering Physician: Arlene Linn DO Turbo Operator: Balwinder Ponce RDCS Attending Provider: Arlene Linn DO Referring Physician: Temitope CAO; Exam Type: CA echo doppler color flow Study Info Indications - CHF Complete two-dimensional, color flow and Doppler transthoracic echocardiogram is performed. Summary 1. Complete two-dimensional, color flow and Doppler transthoracic echocardiogram is performed. 2. Left ventricular dilation with severe global systolic hypokinesia. 3. Moderate left atrial enlargement. 4. Mild MR resulting from annular dilation. 5. Normal appearing aortic valve. 6. ICD lead noted. Left Ventricle Left ventricular chamber dimension is moderately enlarged. Left ventricular systolic function is severely reduced, estimated at 20-25%. The left ventricular diastolic function is grade I diastolic dysfunction. Right Ventricle Right ventricular chamber dimension is normal. Linear artifact in right ventricle suggestive of catheter(s), pacemaker lead(s), or ICD lead(s). Left Atria Left atrial chamber dimension is moderately enlarged. Right Atria Right atrial chamber dimension is mildly enlarged. Aortic Valve The aortic valve is normal. Pulmonic Valve The pulmonic valve is normal. Mitral Valve The mitral valve has normal leaflets. There is mild mitral valve regurgitation. Tricuspid Valve The tricuspid valve leaflets are normal. There is mild tricuspid valve regurgitation. Pericardium/Pleural The pericardium appears normal. Aorta The aortic root size at the sinus of Valsalva is normal. Left Ventricular Outflow Tract Name Value Normal LVOT 2D LVOT Diameter 1.7 cm LVOT Doppler LVOT Peak Gradient 2 mmHg LVOT Mean Gradient 1 mmHg LVOT VTI 13 cm LVOT VTI/AV VTI Ratio 0.3 LVOT Stroke Volume 28 ml LVOT CO 2.4 l/min LVOT CI 1.3 l/min/m2 Pulmonic Valve Name Value Normal PV Doppler PV Peak Gradient 4 mmHg Mitral Valve Name Value Normal MV Doppler MV Decel [place] 606 cm/s2 MV PHT 52 ms MV Area (PHT) 4.2 cm2 4.0-5.0 MV Regurgitation Doppler
[2024-04-06] MEDS: ANASTROZOLE (*CHEMO) 1 MG TABLET PO (08:03)
[2024-04-06] MEDS: GABAPENTIN 300 MG CAPSULE PO (08:04)
[2024-04-06] MEDS: FUROSEMIDE 40 MG TABLET PO (08:04)
[2024-04-06] MEDS: HYDROcodone/acetaminophen (*CRX) 5-325 MG TABLET 1 TAB PO (08:04)
[2024-04-06] MEDS: ASPIRIN 81 MG ENTERIC TABLET PO (08:05)
[2024-04-06] MEDS: SACUBITRIL/VALSARTAN 24-26 MG TABLET 1 TAB PO (08:05)
[2024-04-06] MEDS: EMPAGLIFLOZIN 10 MG TABLET PO (08:05)
[2024-04-06] MEDS: DIGOXIN TAB 125 MCG TABLET PO (08:05)
[2024-04-06] MEDS: MONTELUKAST SODIUM 10 MG TABLET PO (08:05)
[2024-04-06] MEDS: carvediloL 12.5 MG TABLET PO (08:05)
--- NOTE | 2024-04-06 08:07 | PM.IMPN ---
Progress Note: A&P Assessment and Plan (1) Heart failure, chronic, with acute decompensation: Qualifiers: Heart failure type: systolic Qualified Code(s): I50.23 - Acute on chronic systolic (congestive) heart failure Code(s): I50.9 - Heart failure, unspecified Status: Acute Assessment and Plan: - Will resume patient's home diuretic therapy - coreg is 12.5 mg b.i.d. (increased)- tele monitor The patient did have some mildly elevated troponins this is likely due to the 2 attempts of cardioversion. Patient was not having any preceding chest pain or symptoms. Troponins were only marginally elevated. Patient is not having any chest pain orthopnea or paroxysmal nocturnal dyspnea at the moment. -Will resume the patient's home Lasix and spironolactone. - Will also continue Entresto and digoxin. -Will monitor electrolyte panel since patient received an extra dose of Lasix. - ordered echocardiogram to further evaluate cardiac structure of function and evaluate whether she has had acute change in her cardiac output. - cardiology consulted- appreciate recommendations - trend labs, I/O (2) Chronic lumbar radiculopathy: Code(s): M54.16 - Radiculopathy, lumbar region Status: Acute Assessment and Plan: - continue patient's home Neurontin. Will continue p.r.n. Tylenol and will add [place] 5/325 q.6 hours for pain 4-10 and continue Dilaudid for breakthrough pain. If the patient has recurrent also cramps will consider anti spasmodic agent as well. She very well may be having some spasm causing some of her radicular pain symptoms. (3) Narrow complex tachycardia: Code(s): I47.19 - Other supraventricular tachycardia Status: Acute Assessment and Plan: - coreg was decreased (last hospitalization) - pt was out of meds for 2 days - coreg 12.5 mg restarted (4) Abnormal urinalysis: Code(s): R82.90 - Unspecified abnormal findings in urine Status: Acute Assessment and Plan: - abnormal urinalysis with chronic urinary urgency frequency with intermittent urinary incontinence - mild leukocytosis but no fever. - empiric antibiotic therapy with Rocephin. Urine cultures are pending. (5) Leg pain: Code(s): M79.606 - Pain in leg, unspecified Status: Acute Assessment and Plan: reports leg pain to the left - noted doppler completed in january- negative - will repeat to ensure no DVT- negative Time Spent With Patient Time with patient: Greater than 35 minutes Subjective Date/time seen: 04/06/24 08:07 Interval history: Narrative retrieved from H/P: 83-year-old female with past medical history of atrial fibrillation, pacemaker, CHF, chronic kidney disease, chronic peripheral edema and lumbar radiculopathy who presented to the ER via private vehicle from independent living facility in the company of her son who presented due to left hip and leg pain. Patient reports he has intermittent left hip and leg pain. Pain is usually in the left hip and binder left knee. She was actually admitted to [facility] in January for this in the past and had extensive evaluation including CT which demonstrated L4-L5 spondylosis. In the ER today patient had positive left straight leg raise. She was writhing around in bed in uncomfortable per ER physician report. Her sensation was intact in bilateral lower extremities and she was able to move them freely. She does report chronic urinary frequency and urgency. She denies dysuria. She does have intermittent urinary incontinence which is unchanged from baseline. He has not had any fevers or chills. She denies nausea or vomiting and reports having normal bowel movements. During ER providers evaluation patient the patient developed narrow complex tachycardia with rate of 144. She acutely became diaphoretic and hypoxic. She was given 2 doses of adenosine both 6 and 12 mg for possible SVT with no change in her rhythm. She was
[2024-04-06] MEDS: SPIRONOLACTONE 25 MG TABLET PO (08:21)
[2024-04-06] MEDS: ATORVASTATIN 10 MG TABLET PO (08:22)
[2024-04-06] MEDS: ENOXAPARIN 40 MG/0.4 ML SYRINGE SUB-Q (08:23)
[2024-04-06 08:56] LABS: Hematocrit 42.6 % (37.0-47.0); Hemoglobin 12.9 g/dL (12.0-15.0); Mean Corpuscular HGB Conc 30.3 g/dl (32-36); Mean Corpuscular Hemoglobin 29.7 pg (26-34); Mean Corpuscular Volume 97.9 fl (80-100); Mean Platelet Volume 9.9 fl (7.4-10.4); Platelet Count Result 176 k/mm3 (150-375); Red Blood Count 4.35 M/mm3 (4.2-5.4); Red Cell Distribution Width 15.8 % (11.5-14.5); White Blood Count 9.5 K/mm3 (4.5-10.0)
[2024-04-06 09:14] LABS: Anion Gap 6 mmol/L (4-12); Blood Urea Nitrogen 20 mg/dL (7-17); Calcium 8.5 mg/dL (8.4-10.2); Carbon Dioxide 32 mmol/L (22-30); Chloride 100 mmol/L (98-107); Estimated CRCL calculation 35 ml/min; Estimated Glomerular Filt Rate 53; Glucose 166 mg/dL (65-110); Potassium 4.5 mmol/L (3.4-5.0); Sodium 138 mmol/L (137-145)
--- NOTE | 2024-04-06 09:34 | PM.PNCARD ---
Progress Note: A&P Assessment and Plan (1) Narrow complex tachycardia: Code(s): I47.19 - Other supraventricular tachycardia Status: Acute Assessment and Plan: Likely sinus tachycardia. Continue standard home regimen. DC telemetry (2) CHF (congestive heart failure): Code(s): I50.9 - Heart failure, unspecified Status: Chronic Assessment and Plan: Continue carvedilol and other meds without change (3) CAD (coronary artery disease): Code(s): I25.10 - Atherosclerotic heart disease of [place] coronary artery without angina pectoris Status: Acute Assessment and Plan: Continue aspirin, atorvastatin, carvedilol and other meds without change Subjective Date/time seen: 04/06/24 09:34 Interval history: 83-year-old lady with a history of coronary disease, she reports previous PCI and is on standard medical therapy for left ventricular systolic dysfunction she also has a chronically implanted defibrillator which she says was recently last year moved from left side to right side so that breast cancer on the left side could be treated with radiation. Her physicians in [place] are providing excellent care for her. She came to this hospital because of severe hip pain and in the emergency room was quite tachycardic. I would conclude that she was in sinus tachycardia at this time despite the appearance of her ECG as SVT, atrial flutter or ventricular tachycardia would have responded either to the adenosine or to DC cardioversion. What appears to have occurred is that as her pain was controlled her heart rate gradually decreased and she is now clearly in sinus rhythm. Her standard guideline directed medical therapy should be continued and at this point I do not believe there is need for further cardiovascular assessment at [facility]. She is receiving excellent care by her food scientist up in [place]. The rest remainder of her management here will be deferred to the primary team Date of service 04/06/2024: Anxious to go home. No chest pain or shortness of breath. Review of Systems Constitutional: Constitutional: Reports no additional constitutional complaints Eyes: Eyes: Reports no additional eye complaints ENT: Reports system reviewed and no additional complaints, except as documented Cardiovascular: Cardiovascular: Reports as per HPI Respiratory: Respiratory: Reports no additional respiratory complaints Gastrointestinal: Gastrointestinal: Reports no additional gastrointestinal complaints Musculoskeletal: Musculoskeletal: Reports as per HPI Endocrine: Endocrine: Reports no additional endocrine complaints Hematologic/Lymphatic: Hematologic/Lymphatic: Reports no additional hematologic/lymphatic complaints Allergic/Immunologic: Allergic/Immunologic: Reports no additional allergic/immunologic complaints Exam Const: Other: Pleasant elderly lady eating her lunch appears to be in no great distress visiting with family. HENMT: Mouth: Yes moist mucous membranes Eyes: Sclera: sclerae normal Neck: Neck: supple and no JVD Resp: Effort & Inspection: normal respiratory effort Auscultation: clear to auscultation bilaterally Cardio: Rate: regular rate Rhythm: regular rhythm GI: Auscultation: normal bowel sounds Skin: General skin exam: normal color Neuro: Other: Alert and oriented x3 Extrem: Other: Adequate perfusion, soft moderate pitting edema bilaterally Objective Data Vital Signs Vital Signs: Vital Signs - 24 hr 04/05/24 10:50 04/05/24 11:21 04/05/24 10:00 Temperature 36.2 C L Pulse Rate 92 102 H Respiratory Rate 20 Blood Pressure 94/47 L 91/50 L Pulse Oximetry 95 Oxygen Delivery 04/05/24 14:00 04/05/24 15:46 04/05/24 16:00 Temperature 35.9 C L Pulse Rate 91 91 Respiratory Rate 18 Blood Pressure 102/53 L Pulse Oximetry 95 95 Oxygen Delivery Room Air 04/05/24 16:00 04/05/24 18:00 04/05/24
--- NOTE | 2024-04-06 12:57 | PM.DS ---
DS: Admitting Diagnosis Discharge Date 04/06 Admitting Diagnosis pain hip/leg DS: Discharge Diagnosis Discharge Diagnosis (1) Heart failure, chronic, with acute decompensation: Qualifiers: Heart failure type: systolic Qualified Code(s): I50.23 - Acute on chronic systolic (congestive) heart failure Code(s): I50.9 - Heart failure, unspecified Status: Acute Assessment and Plan: - Will resume patient's home diuretic therapy - coreg is 12.5 mg b.i.d. (increased)- tele monitor The patient did have some mildly elevated troponins this is likely due to the 2 attempts of cardioversion. Patient was not having any preceding chest pain or symptoms. Troponins were only marginally elevated. Patient is not having any chest pain orthopnea or paroxysmal nocturnal dyspnea at the moment. -Will resume the patient's home Lasix and spironolactone. - Will also continue Entresto and digoxin. -Will monitor electrolyte panel since patient received an extra dose of Lasix. - ordered echocardiogram to further evaluate cardiac structure of function and evaluate whether she has had acute change in her cardiac output. - cardiology consulted- appreciate recommendations - trend labs, I/O (2) Chronic lumbar radiculopathy: Code(s): M54.16 - Radiculopathy, lumbar region Status: Acute Assessment and Plan: - continue patient's home Neurontin. Will continue p.r.n. Tylenol and will add [place] 5/325 q.6 hours for pain 4-10 and continue Dilaudid for breakthrough pain. If the patient has recurrent also cramps will consider anti spasmodic agent as well. She very well may be having some spasm causing some of her radicular pain symptoms. (3) Narrow complex tachycardia: Code(s): I47.19 - Other supraventricular tachycardia Status: Acute Assessment and Plan: - coreg was decreased (last hospitalization) - pt was out of meds for 2 days - coreg 12.5 mg restarted- will continue (4) Abnormal urinalysis: Code(s): R82.90 - Unspecified abnormal findings in urine Status: Acute Assessment and Plan: - abnormal urinalysis with chronic urinary urgency frequency with intermittent urinary incontinence - mild leukocytosis but no fever. - empiric antibiotic therapy with Rocephin. Urine cultures are pending. (5) Leg pain: Code(s): M79.606 - Pain in leg, unspecified Status: Acute Assessment and Plan: reports leg pain to the left - noted doppler completed in january- negative - will repeat to ensure no DVT- negative DS: Summary Hospital Course Hospital Course: Interval history: Narrative retrieved from H/P: 83-year-old female with past medical history of atrial fibrillation, pacemaker, CHF, chronic kidney disease, chronic peripheral edema and lumbar radiculopathy who presented to the ER via private vehicle from independent living facility in the company of her son who presented due to left hip and leg pain. Patient reports he has intermittent left hip and leg pain. Pain is usually in the left hip and binder left knee. She was actually admitted to [facility] in January for this in the past and had extensive evaluation including CT which demonstrated L4-L5 spondylosis. In the ER today patient had positive left straight leg raise. She was writhing around in bed in uncomfortable per ER physician report. Her sensation was intact in bilateral lower extremities and she was able to move them freely. She does report chronic urinary frequency and urgency. She denies dysuria. She does have intermittent urinary incontinence which is unchanged from baseline. He has not had any fevers or chills. She denies nausea or vomiting and reports having normal bowel movements. During ER providers evaluation patient the patient developed narrow complex tachycardia with rate of 144. She acutely became diaphoretic and hypoxic. She was given 2 doses of adenosine both 6 and 12 mg for possible SVT with
--- NOTE | 2024-04-07 07:31 | P.CDI_ITS ---
CDI Query Clarification Request Patient with a BMI of 49.7 please provide a diagnosis to accompany this finding: * Overweight * Obesity * Morbid Obesity * Other/Unknown <Esther Soria RN - Last Filed: 04/07/24 07:32> Clarified Diagnosis Clarified Diagnosis: morbid obesity <Maria Elena Feliciano APRN - Last Filed: 04/07/24 07:51>
--- NOTE | 2024-04-08 13:35 | PC.NURSE ---
Urine cx growing Klebsiella Pneumonia. Pt dc on Cefdinir which is susceptible.
== END 2024-04-06 13:39 | DRG 308 ==
LOC: ANHED 23:01 → ANHIMU 23:20
PROVIDERS: Admitting Provider Internal Medicine; Emergency Provider Emergency Medicine; PCP Internal Medicine; Visit Provider Nurse Practitioner
DX: I47.19 Other supraventricular tachycardia (principal); I50.23 Acute on chronic systolic (congestive) heart failure; I42.8 Other cardiomyopathies; E66.01 Morbid (severe) obesity due to excess calories; I25.10 Atherosclerotic heart disease of native coronary artery without angina pectoris; M16.10 Unilateral primary osteoarthritis, unspecified hip; R82.90 Unspecified abnormal findings in urine; N18.9 Chronic kidney disease, unspecified; I48.91 Unspecified atrial fibrillation; N39.41 Urge incontinence; M79.605 Pain in left leg; M47.26 Other spondylosis with radiculopathy, lumbar region; E66.9 Obesity, unspecified; Z68.33 Body mass index [BMI] 33.0-33.9, adult; Z95.5 Presence of coronary angioplasty implant and graft; Z85.3 Personal history of malignant neoplasm of breast; Z79.82 Long term (current) use of aspirin; Z95.810 Presence of automatic (implantable) cardiac defibrillator
CPT/HCPCS: 36415; 36600; 71045; 80048; 80053; 81001; 82805; 83880; 84145; 84484; 85025; 85027; 85610; 85730; 87077; 87086; 87088; 87186; 93005; 93306; 93970; 94002; 96365; 96375; 96376; 99285; A9270; G0378; J0153; J0696; J1170; J1650; J1940; J7030

== ENCOUNTER 2024-05-07 08:50 | Outpatient (CLI) | payer MEDICARE, MEDICAID, SELFPAY ==
--- NOTE | ~2024-05-07 | MM_ITS ---
EXAMINATION: MM diagnostic sanchez RT w bea HISTORY: Prior left mastectomy, prior right breast biopsy TECHNIQUE: 3-D tomosynthesis images of the right breast were performed and synthetic 2-D images were generated. CAD analysis was submitted and interpreted. COMPARISON: 04/16/2023,10/16/2022 BREAST PARENCHYMAL COMPOSITION:Not Dense. There are scattered areas of fibroglandular density. FINDINGS: Parenchymal pattern of the right breast is unchanged. No suspicious mass lesion or distorti on. Benign vascular calcified lesions are present. No suspicious microcalcification. IMPRESSION: No mammographic evidence for malignancy. BI-RADS Category 2: Benign finding(s). Reviewed, dictated and finalized at location .
== END 2024-05-07 08:51 | disposition home or self-care (01) ==
LOC: CHSIMG 08:51
PROVIDERS: PCP Internal Medicine; Visit Provider Internal Medicine Hematology
DX: C50.112 Malignant neoplasm of central portion of left female breast (principal)
CPT/HCPCS: 77061; 77065; G0279

== ENCOUNTER 2024-05-08 10:02 | Outpatient (CLI) | payer MEDICARE, MEDICAID, SELFPAY ==
--- NOTE | ~2024-05-08 | US_ITS ---
EXAMINATION TYPE: US breast LT complete COMPARISON: 11/04/2023, 04/16/2023 REASON FOR STUDY: cancer of central portion of left breast TECHNIQUE: Targeted sonographic evaluation of the left breast was performed. INTERPRETATION: There is a stable wire than tall hypoechoic region at the left mastectomy site at the area of scar. T his is stable from prior exam. IMPRESSION: Stable hypoechoic area at region of scar related to left mastectomy. This is probably benign. Conside r additional 6 month follow-up ultrasound to assure continued stability, as indicated. BI-RADS CATEGORY: BI-RADS 3: Probably benign Reviewed, dictated and finalized at location . IMPRESSION: Stable hypoechoic area at region of scar related to left mastectomy. This is pr obably benign. Consider additional 6 month follow-up ultrasound to assure sebastián nued stability, as indicated. BI-RADS CATEGORY: BI-RADS 3: Probably benign
== END 2024-05-08 10:03 | disposition home or self-care (01) ==
LOC: CHSIMG 10:08
PROVIDERS: PCP Internal Medicine; Visit Provider Internal Medicine Hematology
DX: C50.112 Malignant neoplasm of central portion of left female breast (principal)
CPT/HCPCS: 76641

== ENCOUNTER 2024-06-02 09:08 | Outpatient (CLI) | payer MEDICARE, MEDICAID, SELFPAY ==
[2024-06-02 09:13] VITALS: BMI 34.3
[2024-06-02 09:25] VITALS: BP 134/81; PULSE 92; RESP 16; TEMP 36.6; O2SAT 97
[2024-06-02] MEDS: ZOLEDRONIC ACID IVPB (09:40)
[2024-06-02] MEDS: SODIUM CHLORIDE 0.9% IVPB (09:40)
--- NOTE | 2024-06-02 10:15 | PC.NURSE ---
Here for IV Zoledronic acid infusion. Education given. Has had this in past without issues. Voices no concerns. Infusion administered. SEE MAR/patient care notes.
[2024-06-02 11:10] VITALS: BP 141/71; PULSE 88; RESP 16
== END 2024-06-02 10:20 | disposition home or self-care (01) ==
PROVIDERS: PCP Internal Medicine; Visit Provider Internal Medicine Hematology
DX: C50.012 Malignant neoplasm of nipple and areola, left female breast (principal)
CPT/HCPCS: 96365; J3489

== ENCOUNTER 2024-09-18 12:27 | Outpatient (CLI) | payer MEDICARE, MEDICAID, SELFPAY ==
--- OUTSIDE RECORDS SUMMARY | 2024-09-18 12:31 | XMS_ITS | Encounter Summary ---
Author Organization [facility] Address [address] [place] [address]. [place] [address] [place] [address] Care Team Providers Care Shot Bagger Name Role Phone Gino Meyer MD Primary Care Provider [phone] Christel Lu MD Unavailable Encounter Details Date Type Department Care Team (Late st Contact Info) Description 09/16/2024 10:39 AM SENIOR ACCOUNTING CLERK - 09/16/2024 11:59 PM [facility] Hospital Encounter [facility] [address] [place] [address] Barbi Day, [facility] [address] [place] [address] Discharge Disposition: Home or Self Care (Routine Discharge) Social History Tobacco Use Types Packs/Day Years Used Date Smoking Tobacco: Never Smokeless Tobacco: Never Alcohol Use Standard Drinks/Week Comments No 0 (1 standard drink = 0.6 oz pur e alcohol) Humiliation, Afraid, Rape, and Kick questionnair e Answer Date Recorded Within the last year, have y ou been afraid of your partner or ex-partner? No 11/29/2022 Within the last year, have y ou been humiliated or emotionally abused in other ways by your partner or ex-partner? No Within the last year, have y ou been kicked, hit, slapped, or otherwise physically hurt by your partner or ex-partner? No 11/29/2022 Within the last year, have y ou been raped or forced to have any kind of sexual activity by your partner or ex-partner? No 11/29/2022 Overall Financial Resource Strain (CARDIA) Answe r Date Recorded How hard is it for you to pa y for the very basics like food, housing, medical care, and heating? Not hard at all 11/29/2022 Hunger Vital Sign Answer Date Recorded Within the past 12 months, y ou worried that your food would run out before you got the money to buy more. Never true 11/30/19 23 Within the past 12 months, t he food you bought just didn't last and you didn't have money to get more. Never true 11/29/2022 PRAPARE - Transportation Answer Date Re corded In the past 12 months, has l ack of transportation kept you from medical appointments or from getting medications? No 11/17 In the past 12 months, has l ack of transportation kept you from meetings, work, or from getting things needed for daily living? No 11/29/2022 Housing Stability Vital Sign Answer Ramakrishna e Recorded In the last 12 months, was t here a time when you were not able to pay the mortgage or rent on time? Yes 11/29/2022 In the last 12 months, how many places have you lived? 1 11/29/2022 In the last 12 months, was t here a time when you did not have a steady place to sleep or slept in a assisted (including now)? Yes 11/29/2022 Comments No Sex and Gender Information Value Date Recorded Sex Assigned at Female 09/01/2024 10:13 AM SENIOR ACCOUNTING CLERK Legal Sex Female 10:21 PM CDT Gender Identity Not on file Sexual Orientation Not on file Occupation Industry Job Start Date Job End Date retired Not on file Not on file Not on file documented as of this encounter Functional Status * Are you deaf or do you have serious difficulty hearing Answer Date of Assessment Author Status No 07/23/2023 6:28 AM Saroj Juarez RN Active * Are you blind or do you have serious difficulty seeing, even when wearing glasses? Answer Date of Assessment Author Status No 07/23/2023 6:28 AM Saroj Juarez RN Active * Do you have serious difficulty walking or climbing stairs? Answer Date of Assessment Author Status Yes 11/29/2022 1:48 PM CDT Helga Hallman R N Active * Do you have difficulty dressing or bathing? Answer Date of Assessment Author Status No 11/29/2022 1:48 PM Helga Thomas R N Active * Because of a physical, mental, or emotional condition, do you have difficulty doing errands alone such as visiting a doctor's office or shopping? Answer Date of Assessment Author Status No 11/29/2022 1:48 PM Helga Thomas R N Active documented as of this encounter Mental Status * Because of a physical, mental, or emotional condition, do you have serious difficulty concentrating, remembering, or making decisions? Answer Entry Date Author Status No 11/29/2022 1:48 PM Helga Thomas R N Active documented in this encounter Medications at Time of Discharge albuterol sulfate HFA 108 (90 Base) MCG/ACT inhaler Inhale 2 puffs into the lungs every 4 (four) hours as needed for Wheezing or Shortness of breath. 8 g 12/04/2022 anastrozole (ARIMIDEX) 1 MG tablet Take 1 tablet by mouth daily. 11/23/2022 apixaban (ELIQUIS) 5 MG tabletIndications: Atrial fibrillation ([facility] HHS/HCC) Take 1 tablet (5 mg total) by mouth 2 (two) times daily. 60 tablet 2 08/10/2024 aspirin 81 MG tablet Take 1 tablet (81 mg total) by mouth daily. 11/21/2015 atorvastatin (LIPITOR) 10 MG tablet TAKE ONE TABLET BY MOUTH NIGHTLY AT BEDTIME 30 tablet 11 12/30/2022 Calcium-Magnesium- Vitamin D (CALCIUM 1200+D3 OR) Take 1 tablet by mouth daily. carvedilol (COREG) 12.5 MG tabletIndications: Atrial fibrillation ([facility] HHS/HCC) Take 1 tablet (12.5 mg total) by mouth 2 (two) times daily. 60 tablet 08/11/2024 digoxin (LANOXIN) 0.125 MG tablet Take 1 tablet (0.125 mg total) by mouth daily. 05/30/2023 empagliflozin (JARDIANCE) 10 MG tablet Take 1 tablet (10 mg total) by mouth daily. 30 tablet 12/05/2022 furosemide (LASIX) 80 MG tablet Take 1 tablet (80 mg total) by mouth 2 (two) times daily. 180 tablet 09/08/2024 gabapentin (NEURONTIN) 300 MG capsule Take 2 capsules (600 mg total) by mouth 3 (three) times daily. HYDROcodone-acetam inophen (NORCO) 5-325 MG tablet as needed. 07/20/2024 ipratropium-albute rol (COMBIVENT RESPIMAT) 20-100 MCG/ACT inhaler Inhale 1 puff into the lungs 4 (four) times daily. Please provide assembled. 4 g 12/04/2022 montelukast (SINGULAIR) 10 MG tablet Take 1 tablet (10 mg total) by mouth daily. In evening 04/18/2022 multi vitamin/minerals (THERA-M ENHANCED) tablet Take 1 tablet by mouth daily. nitroglycerin 0.[address] 1 tablet (0.4 mg total) under the tongue every 5 (five) minutes as needed for Chest Pain. 28 tablet 11 03/18/2021 sacubitril-valsart an (ENTRESTO) 24-26 MG tablet Take 1 tablet by mouth 2 (two) times daily. spironolactone (ALDACTONE) 25 MG tablet Take 0.5 tablets (12.5 mg total) by mouth daily. 30 tablet 5 04/28/2022 documented as of this encounter Plan of Treatment Upcoming Encounters Date Type Department Care Team (Late st Contact Info) Description 10/12/2024 3:45 PM SENIOR ACCOUNTING CLERK Office Visit [facility] [place] [address] Stella Llanos MD [address] [place], [place] [address] 12/07/2024 1:15 AM CDT [facility] [address] [place] [id number] Christel Lu MD [address] [place] [address] documented as of this encounter Goals Goal Patient Goal Type Associated Problems Recent Progress Patient-Stated? Author Safety ? Patient/family will have appropriate support at home upon discharge Lifestyle No Merissa Santiago RN Safety ? Patient/family will have appropriate support at home upon discharge Lifestyle No Elina Lambert RN documented as of this encounter Visit Diagnoses Not on filedocumented in this encounter Care Teams Shot Bagger Relationship Specialty Start Date End Date Gino Meyer MD [address] [place] [address] PCP - General INTERNAL MEDICINE 06/11/17 Christel Lu MD [address] [place] [address] EP [employer]ater Apprentice CLINICAL CARDIAC ELECTROPHYSIOLOGY 06/12/23 documented as of this encounter
--- OUTSIDE RECORDS SUMMARY | 2024-09-18 12:31 | XMS_ITS | CONTINUITY OF CARE DOCUMENT ---
Author Name angel, angel Address Unknown Organization [facility] Address [address] [facility] [address] [place] [address] Phone [phone] Care Team Providers Care Electrical Engineering Manager Name Role Phone Nav Houser MD Unavailable KENNEDY SARMIENTO MD Unavailable KENNEDY SARMIENTO MD Unavailable [phone] PROBLEMS Condition Status Date Provider Notes S/P Dual Chamber AICD - Dion on Scientific active Nenita Mishra Shortness of breath active Nav Houser MD Renal disease, chronic active Nav Houser MD CHF active Nav Houser MD HTN essential completed - Nav carreno MD Cardiomyopathy-nonischemic active Nav carreno MD ENCOUNTERS Date Type Provider Location Encounter Diagnosis - In-person encounter Office Visit [facility] Shortness of breath - In-person encounter Office Visit [facility] HTN essential - In-person encounter Office Visit [facility] - In-person encounter Office Visit [facility] Cardiomyopathy-non ischemicCHFRenal disease, chronic VITAL SIGNS Date Observation Value Provider blood pressure, diastolic 68 mm[Hg] Us indra Houser MD blood pressure, systolic 122 mm[Hg] Jluis Houser MD pulse rate 86 /min Nav Houser MD oxygen saturation, oximetry 92 % Nav Houser MD respiratory rate E&M 16 /min Nav samson MD Body Mass Index (Ratio) 35.54 kg/m2 Phil Houser MD weight E&M 182 [lb_av] Nav Houser MD height E&M 60 [in_i] Nav Houser MD blood pressure, diastolic 68 mm[Hg] Us indra Houser MD blood pressure, systolic 126 mm[Hg] Jluis Houser MD pulse rate 98 /min Nav Houser MD oxygen saturation, oximetry 97 % Nav Houser MD respiratory rate E&M 16 /min Nav samson MD weight E&M 176 [lb_av] Nav Houser MD Body Mass Index (Ratio) 31.93 kg/m2 Rudy Agrawal MD blood pressure, diastolic 78 mm[Hg] Justin Agrawal MD blood pressure, systolic 132 mm[Hg] Shu Agrawal MD pulse rate 94 /min Balwinder Agrawal MD oxygen saturation, oximetry 99 % Balwinder Agrawal MD respiratory rate E&M 16 /min Valentin Agrawal MD weight E&M 169 [lb_av] Balwinder Agrawal MD blood pressure, diastolic 74 mm[Hg] Us indra Houser MD blood pressure, systolic 124 mm[Hg] Jluis Houser MD oxygen saturation, oximetry 98 % Nav Houser MD respiratory rate E&M 16 /min Nav samson MD pulse rate 82 /min Nav Houser MD weight E&M 175 [lb_av] Nav Houser MD height E&M 61 [in_i] Nav Houser MD ALLERGIES No Known Drug Allergies HISTORY OF MEDICATION USE Medication Status Instructions Dates Provider Indications Com ments ASPIRIN 81 MG ORAL TABLET active ONE TAB. DAILY 8 Nav Houser MD LOSARTAN POTASSIUM 50 MG ORAL TABLET active 1 tablet p.o. daily 7 Nav Houser MD RANITIDINE HCL 150 MG ORAL TABLET active ONE TAB TWICE DAILY 7 Nav Houser MD CARVEDILOL 12.5 MG ORAL TABLET active one tab twice a day 7 Nav Houser MD BUMETANIDE 1 MG ORAL TABLET active 1 tab by mouth daily 7 Zacarias Whitaker SPIRONOLACTONE 25 MG ORAL TABLET active ONE TAB. DAILY 7 Nav Houser MD SOCIAL HISTORY Date Observation Value Provider smoking status Never smoker Nav Houser MD social history reviewed E&M revi ewed - no changes required Nav Houser MD social history E&M Patient has n ever smoked. Smoking History: Edmund ramos has never smoked. Nav Houser MD social history reviewed E&M revi ewed - no changes required Nav Houser MD smoking status Never smoker Nav Houser MD smoking status Never smoker Balwinder ricci MD social history E&M Patient has n ever smoked. Smoking History: Edmund ramos has never smoked. Balwinder Agrawal MD social history reviewed E&M revi ewed - no changes required Balwinder Agrawal MD social history E&M Patient has n ever smoked. Smoking History: Edmund ramos has never smoked. Nav Houser MD social history reviewed E&M revi ewed - no changes required Nav Houser MD smoking status Never smoker Nav Houser MD FAMILY HISTORY Family Member Condition Paternal Grandfather Family History of C oronary Artery Disease: Maternal Grandfather Family History of C oronary Artery Disease: Father Family History of Co ronary Artery Disease: INSURANCE PROVIDERS Payer name Policy type / Coverage type Pam aceves ID MARLENA JUAREZ Smackages insurance [employer] pany [id number] [place] [employer] Medicare [id number] TREATMENT PLAN Date Name Performer Cardiology printed to matias Houser MD Follow-up faxed to yazmin oneal: H er updated medication list for this problem includes: Losartan Potassium 50 Mg Tabs (Losartan potassium) ..... 1 tablet p.o. daily Carvedilol 6.25 Mg Tabs (Carvedilol) ..... One tab. twice daily Bumetanide 1 Mg Tabs (Bumetanide) Spironolactone 25 Mg Tabs (Spironolactone) ..... One tab. daily Nav Houser MD Follow-up faxed to yazmin oneal: H er updated medication list for this problem includes: Losartan Potassium 50 Mg Tabs (Losartan potassium) ..... 1 tablet p.o. daily Carvedilol 6.25 Mg Tabs (Carvedilol) ..... One tab. twice daily Bumetanide 1 Mg Tabs (Bumetanide) Spironolactone 25 Mg Tabs (Spironolactone) ..... One tab. daily Nav Houser MD Balwinder Duvall : H er updated medication list for this problem includes: Losartan Potassium 50 Mg Tabs (Losartan potassium) ..... 1 tablet p.o. daily Carvedilol 6.25 Mg Tabs (Carvedilol) ..... One tab. twice daily Bumetanide 1 Mg Tabs (Bumetanide) Spironolactone 25 Mg Tabs (Spironolactone) ..... One tab. daily Balwidner Agrawal MD : H er updated medication list for this problem includes: Losartan Potassium 50 Mg Tabs (Losartan potassium) ..... 1 tablet p.o. daily Carvedilol 6.25 Mg Tabs (Carvedilol) ..... One tab. twice daily Bumetanide 1 Mg Tabs (Bumetanide) Spironolactone 25 Mg Tabs (Spironolactone) ..... One tab. daily Balwinder Agrawal MD : H er updated medication list for this problem includes: Losartan Potassium 50 Mg Tabs (Losartan potassium) ..... 1 tablet p.o. daily Carvedilol 6.25 Mg Tabs (Carvedilol) ..... One tab. twice daily Bumetanide 1 Mg Tabs (Bumetanide) Spironolactone 25 Mg Tabs (Spironolactone) ..... One tab. daily Balwinder Agrawal MD Date Name Complete Echo HISTORY OF PROCEDURES Procedure Date Procedure Name Provider Procedure Notes S tatus ICM Interrogation, Remote (Prof) Nav Houser MD INTERROGATION EVAL REMOTE </30 D CV MNTR SYS completed ICM Interrogation, Remote (Tech) Nav Houser MD INTERROGATION EVAL REMOTE </30 D TECH REVIEW completed ICM Interrogation, Remote (Prof) Nav Houser MD INTERROGATION EVAL REMOTE </30 D CV MNTR SYS completed AICD Interrogation, Remote (Tech) Nav Houser MD INTERROGATION REMOTE </90 D BUSINESS SERVICES SPECIALIST SALES REVIEW completed AICD Interrogation, Remote (Prof) Nav Houser MD INTERROGATION EVAL REMOTE </90 D 1/2/> LD CVDFB completed ICM Interrogation, Remote (Prof) Nav Houser MD INTERROGATION EVAL REMOTE </30 D CV MNTR SYS completed ICM Interrogation, Remote (Tech) Nav Houser MD INTERROGATION EVAL REMOTE </30 D TECH REVIEW completed ICM Interrogation, Remote (Prof) Nav Houser MD INTERROGATION EVAL REMOTE </30 D CV MNTR SYS completed ICM Interrogation, Remote (Tech) Nav Houser MD INTERROGATION EVAL REMOTE </30 D TECH REVIEW completed ICM Interrogation, Remote (Prof) Anv Corrina MD INTERROGATION EVAL REMOTE </30 D CV MNTR SYS completed AICD Interrogation, Remote (Tech) Nav Corrina MD INTERROGATION REMOTE </90 D BUSINESS SERVICES SPECIALIST SALES REVIEW completed AICD Interrogation, Remote (Prof) Nav Corrina MD INTERROGATION EVAL REMOTE </90 D 1/2/> LD CVDFB completed ICM Interrogation, Remote (Prof) Nav Corrina MD INTERROGATION EVAL REMOTE </30 D CV MNTR SYS completed ICM Interrogation, Remote (Tech) Nav Corrina MD INTERROGATION EVAL REMOTE </30 D TECH REVIEW completed ICM Interrogation, Remote (Prof) Nav Corrina MD INTERROGATION EVAL REMOTE </30 D CV MNTR SYS completed ICM Interrogation, Remote (Tech) Nav Corrina MD INTERROGATION EVAL REMOTE </30 D TECH REVIEW completed ICM Interrogation, Remote (Prof) Nav Corrina MD INTERROGATION EVAL REMOTE </30 D CV MNTR SYS completed AICD Interrogation, Remote (Tech) Nav Corrina MD INTERROGATION REMOTE </90 D BUSINESS SERVICES SPECIALIST SALES REVIEW completed AICD Interrogation, Remote (Prof) Nav Corrina MD INTERROGATION EVAL REMOTE </90 D 1/2/> LD CVDFB completed ICM Interrogation, Remote (Prof) Nav Corrina MD INTERROGATION EVAL REMOTE </30 D CV MNTR SYS completed ICM Interrogation, Remote (Tech) Nav Corrina MD INTERROGATION EVAL REMOTE </30 D TECH REVIEW completed ICM Interrogation, Remote (Prof) Nav Corrina MD INTERROGATION EVAL REMOTE </30 D CV MNTR SYS completed ICM Interrogation, Remote (Tech) Nav Corrina MD INTERROGATION EVAL REMOTE </30 D TECH REVIEW completed ICM Interrogation, Remote (Prof) Nav Corrina MD INTERROGATION EVAL REMOTE </30 D CV MNTR SYS completed ICM Interrogation, Remote (Tech) Nav Corrina MD INTERROGATION EVAL REMOTE </30 D TECH REVIEW completed ICM Interrogation, Remote (Prof) Nav Corrina MD INTERROGATION EVAL REMOTE </30 D CV MNTR SYS completed ICM Interrogation, Remote (Tech) Nav Corrina MD INTERROGATION EVAL REMOTE </30 D TECH REVIEW completed ICM Interrogation, Remote (Prof) Nav Corrina MD INTERROGATION EVAL REMOTE </30 D CV MNTR SYS completed AICD Interrogation, Remote (Tech) Nav Corrina MD INTERROGATION REMOTE </90 D BUSINESS SERVICES SPECIALIST SALES REVIEW completed AICD Interrogation, Remote (Prof) Nav Corrina MD INTERROGATION EVAL REMOTE </90 D 1/2/> LD CVDFB completed ICM Interrogation, Remote (Prof) Nav Corrina MD INTERROGATION EVAL REMOTE </30 D CV MNTR SYS completed ICM Interrogation, Remote (Tech) Nav Corrina MD INTERROGATION EVAL REMOTE </30 D TECH REVIEW completed ICM Interrogation, Remote (Prof) Nav Corrina MD INTERROGATION EVAL REMOTE </30 D CV MNTR SYS completed ICM Interrogation, Remote (Tech) Nav Corrina MD INTERROGATION EVAL REMOTE </30 D TECH REVIEW completed ICM Interrogation, Remote (Prof) Nav Corrina MD INTERROGATION EVAL REMOTE </30 D CV MNTR SYS completed AICD Interrogation, Remote (Tech) Nav Corrina MD INTERROGATION REMOTE </90 D BUSINESS SERVICES SPECIALIST SALES REVIEW completed AICD Interrogation, Remote (Prof) Nav Corrina MD INTERROGATION EVAL REMOTE </90 D 1/2/> LD CVDFB completed ICM Interrogation, Remote (Prof) Nav Corrina MD INTERROGATION EVAL REMOTE </30 D CV MNTR SYS completed ICM Interrogation, Remote (Tech) Nav Corrina MD INTERROGATION EVAL REMOTE </30 D TECH REVIEW completed ICM Interrogation, Remote (Prof) Nav Corrina MD INTERROGATION EVAL REMOTE </30 D CV MNTR SYS completed AICD Interrogation, Remote (Tech) Nav Corrina MD INTERROGATION REMOTE </90 D BUSINESS SERVICES SPECIALIST SALES REVIEW completed AICD Interrogation, Remote (Prof) Nav Corrina MD INTERROGATION EVAL REMOTE </90 D 1/2/> LD CVDFB completed ICM Interrogation, Remote (Prof) Nav Corrina MD INTERROGATION EVAL REMOTE </30 D CV MNTR SYS completed ICM Interrogation, Remote (Tech) Nav Corrina MD INTERROGATION EVAL REMOTE </30 D TECH REVIEW completed ICM Interrogation, Remote (Prof) Nav Corrina MD INTERROGATION EVAL REMOTE </30 D CV MNTR SYS completed ICM Interrogation, Remote (Tech) Nav Corrina MD INTERROGATION EVAL REMOTE </30 D TECH REVIEW completed ICM Interrogation, Remote (Prof) Nav Corrina MD INTERROGATION EVAL REMOTE </30 D CV MNTR SYS completed AICD Interrogation, Remote (Tech) Nav Corrina MD INTERROGATION REMOTE </90 D BUSINESS SERVICES SPECIALIST SALES REVIEW completed AICD Interrogation, Remote (Prof) Nav Corrina MD INTERROGATION EVAL REMOTE </90 D 1/2/> LD CVDFB completed ICM Interrogation, Remote (Prof) Nva Corrina MD INTERROGATION EVAL REMOTE </30 D CV MNTR SYS completed ICM Interrogation, Remote (Tech) Nav Corrina MD INTERROGATION EVAL REMOTE </30 D TECH REVIEW completed ICM Interrogation, Remote (Prof) Nav Corrina MD INTERROGATION EVAL REMOTE </30 D CV MNTR SYS completed ICM Interrogation, Remote (Tech) Nav Corrina MD INTERROGATION EVAL REMOTE </30 D TECH REVIEW completed ICM Interrogation, Remote (Prof) Nav Corrina MD INTERROGATION EVAL REMOTE </30 D CV MNTR SYS completed AICD Interrogation, Remote (Tech) Nav Corrina MD INTERROGATION REMOTE </90 D BUSINESS SERVICES SPECIALIST SALES REVIEW completed AICD Interrogation, Remote (Prof) Nav Corrina MD INTERROGATION EVAL REMOTE </90 D 1/2/> LD CVDFB completed ICM Interrogation, Remote (Prof) Nav Corrina MD INTERROGATION EVAL REMOTE </30 D CV MNTR SYS completed ICM Interrogation, Remote (Tech) Nav Corrina MD INTERROGATION EVAL REMOTE </30 D TECH REVIEW completed ICM Interrogation, Remote (Prof) Nav Corrina MD INTERROGATION EVAL REMOTE </30 D CV MNTR SYS completed ICM Interrogation, Remote (Tech) Nav Corrina MD INTERROGATION EVAL REMOTE </30 D TECH REVIEW completed ICM Interrogation, Remote (Prof) Nav Corrina MD INTERROGATION EVAL REMOTE </30 D CV MNTR SYS completed AICD Interrogation, Remote (Tech) Nav Corrina MD INTERROGATION REMOTE </90 D BUSINESS SERVICES SPECIALIST SALES REVIEW completed AICD Interrogation, Remote (Prof) Nav Corrina MD INTERROGATION EVAL REMOTE </90 D 1/2/> LD CVDFB completed ICM Interrogation, Remote (Prof) Nav Corrina MD INTERROGATION EVAL REMOTE </30 D CV MNTR SYS completed ICM Interrogation, Remote (Tech) Nav Corrina MD INTERROGATION EVAL REMOTE </30 D TECH REVIEW completed ICM Interrogation, Remote (Prof) Nav Corrina MD INTERROGATION EVAL REMOTE </30 D CV MNTR SYS completed ICM Interrogation, Remote (Tech) Nav Corrina MD INTERROGATION EVAL REMOTE </30 D TECH REVIEW completed
--- OUTSIDE RECORDS SUMMARY | 2024-09-18 12:31 | XMS_ITS | Encounter Summary ---
Author Organization [facility] Address [address] [place] [address]. [place] [address] [place] [address] Care Team Providers Care Inspector Tubes Name Role Phone Gino Meyer MD Primary Care Provider [phone] Christel Lu MD Unavailable Reason for Visit * Reason Onset Date Comments Question 09/16/2024 Encounter Details Date Type Department Care Team ([facility] st Contact Info) Description 09/16/2024 [facility]phone [facility] [address] [place] [address] Jaida Yee, JAYDEN, ACCESSORIES REPAIRER-C [address] [facility] [address] [place] [address] Question Social History Tobacco Use Types Packs/Day Years [...] place to sleep or slept in a fci (including now)? Yes 11/29/2022 Comments No Sex and Gender Information Value Date Recorded Sex Assigned at Female 09/01/2024 10:13 AM CUSTOMER SERVICE REPRESENTATIVE Legal Sex Female 10:21 PM CDT Gender [...] Assessment Author Status No 11/29/2022 1:48 PM CDT Hegla Hallman R N Active * Because of a physical, mental, or emotional condition, do you have difficulty doing errands alone such as visiting a doctor's office or shopping? Answer Date of Assessment Author Status No 11/29/2022 1:48 PM CDT Helga Hallman R N Active documented as of this encounter Mental Status * Because of a physical, mental, or emotional condition, do you have serious difficulty concentrating, remembering, or making decisions? Answer Entry Date Author Status No 11/29/2022 1:48 PM CDT Helga Hallman R N Active documented in this encounter Progress Notes * Jaida Yee APRN, ANA LUISA-C - 09/16/2024 8:40 PM CST Spoke with Barbi via [employer]. She does not believe Jennifer can tolerate fluid shift from edema treatment at this time. Will decide if she can be sent back over once she is more euvolemic. OMER SERVICE REPRESENTATIVE * Juanita Willams LPN - 09/16/2024 8:17 AM CST ACCESSORIES REPAIRER Barbi Day called wanting to speak with Jaida regarding patient , informed her Jaida is out today . She wants to know if Jaida thinks with patients current CHF exacerbation ,would she be able to tolerate fluid shift with compression therapy? Informed Barbi Sena is back in the office 09/17/2024 and we will call her back , she said she can't start therapy yet anyway so it's not a franklin it can wait until tomorrow. OMER SERVICE REPRESENTATIVE documented in this encounter Plan of Treatment Upcoming Encounters Date Type Department Care Team (Late st Contact Info) Description 10/12/2024 3:45 PM CUSTOMER SERVICE REPRESENTATIVE Office [facility] [place] [address] Stella Llanos MD [address] [place] [address] 12/07/2024 1:15 AM CDT Allied Health/Nurse Visit [facility] [address] [place] [address] Christel Lu MD [address] [place] [address] documented as of this encounter Goals Goal Patient Goal Type Associated Problems Recent Progress Patient-Stated? Author Safety ? Patient/family will have appropriate support at home upon discharge Lifestyle No Merissa Santiago RN Safety ? Patient/family will have appropriate support at home upon discharge Lifestyle No Elina Lambert, RN documented as of this encounter Visit Diagnoses Not on filedocumented in this encounter Care Teams Inspector Tubes Relationship Specialty Start Date End Date Gino Meyer MD [address] [place] [address] PCP - General INTERNAL MEDICINE 06/11/17 Christel Lu MD [address] [place] [address] EP [employer] Clerk CLINICAL CARDIAC ELECTROPHYSIOLOGY 06/12/23 documented as of this encounter
--- OUTSIDE RECORDS SUMMARY | 2024-09-18 12:31 | XMS_ITS | Encounter Summary ---
Author Organization [facility] Address [address] [place] [address]. [place] [address] [place] [address] Care Team Providers Care Rock Room Worker Name Role Phone Gino Meyer MD Primary Care Provider [phone] Christel Lu MD Unavailable Reason for Visit * Reason Onset Date Comments Follow Up Call 09/10/2024 Encounter Details Date Type Department Care Team ([facility] st Contact Info) Description 09/10/2024 Telephone [facility] [address] [place] [address] Jaida Yee, JAYDEN, GRAPHIC ART TECHNICIAN-C [address] [facility] [address] [place] [address] Follow Up Call Social History Tobacco Use Types Packs/Day Years [...] place to sleep or slept in a halfway (including now)? Yes 11/29/2022 Comments No Sex and Gender Information Value Date Recorded Sex Assigned at Female 09/01/2024 10:13 AM STRATEGIC INSIGHTS LEAD Legal Sex Female 10:21 PM CDT Gender [...] Assessment Author Status No 07/23/2023 6:28 AM STRATEGIC INSIGHTS LEAD Yoggerst, Saroj L, RN Active * Do you have serious difficulty walking or climbing stairs? Answer Date of Assessment Author Status Yes 11/29/2022 1:48 PM CDT Helga Hallman R N Active * Do you have difficulty dressing or bathing? Answer Date of Assessment Author Status No 11/29/2022 1:48 PM CDT Helga Hallman R N Active * Because of [...] encounter Progress Notes * Jaida Yee APRN, NP-C - 09/17/2024 5:01 PM CST Attempted to reach Jennifer. I would like an update on her swelling. We received a message from the wound center that they are unable to do lymphedema therapy due to her fluid overload at this point. They stated she was still quite short of breath. I want to confirm that she is taking furosemide 80 mgTWICE A DAY. I did also need her BMP results so that I can adjust her diuretic. Left message to return call. TEGIC INSIGHTS LEAD * Analilia Simon CMA - 09/14/2024 11:16 AM CST Spoke to Jennifer went over recommendations from JAYDEN, she stated she will continue taking furosemide 80 mg daily. She stated she has not had labs drawn yet, she has an appointment on Saturday and willhave labs drawn at her PCP office then. I let her know I would fax orders to pcp office. She v/u and no further questions. Lab order has been faxed. TEGIC INSIGHTS LEAD * Analilia Simon CMA - 09/11/2024 2:41 PM CST Attempted to contact Jennifer marroquin voicemail to return call to office. TEGIC INSIGHTS LEAD * Jaida Yee APRN, NP-C - 09/11/2024 1:08 PM CST Continue furosemide 80 mg BID and have BMP drawn that was given in clinic. TEGIC INSIGHTS LEAD * Analilia Simon CMA - 09/11/2024 9:29 AM CST Spoke to Jennifer she stated her legs are still a little swollen, left leg has gone done little but the right leg still has some fluid leakage. She stated she is going to the restroom a lot, she stated other than that she feels good. She has an appointment with the wound clinic in [place] on . I let her know I would send message to Jaida. She v/u and no further questions. TEGIC INSIGHTS LEAD * Analilia Simon CMA - 09/11/2024 9:02 AM CST Attempted to contact Jennifer marroquin voicemail to return call to office. TEGIC INSIGHTS LEAD * Jaida Yee APRN, NP-C - 09/10/2024 5:07 PM CST Attempted to reach Jennifer for an update since increasing her furosemide. Left message to return call. TEGIC INSIGHTS LEAD documented in this encounter Plan of Treatment Upcoming Encounters Date Type Department Care Team (Late st Contact Info) Description 10/12/2024 3:45 PM STRATEGIC INSIGHTS LEAD [facility] [place] [address] Stella Llanos MD [address] [place] [address] 12/07/2024 1:15 AM CDT Allied Health/Nurse Visit [facility] [address] [place] [address] Christel Lu MD [address] [place] [address] documented as of this encounter Goals Goal Patient Goal Type Associated Problems Recent Progress Patient-Stated? Author Safety ? Patient/family will have appropriate support at home upon discharge Lifestyle No Merissa Santiago RN Safety ? Patient/family will have appropriate support at home upon discharge Lifestyle No Elina Lambert, RN documented as of this encounter Visit Diagnoses Not on filedocumented in this encounter Care Teams Rock Room Worker Relationship Specialty Start Date End Date Gino Meyer MD [address] [place] [address] PCP - General INTERNAL MEDICINE 06/11/17 Christel Lu MD [address] [place] [address] EP Fight Manager CLINICAL CARDIAC ELECTROPHYSIOLOGY 06/12/23 documented as of this encounter
--- OUTSIDE RECORDS SUMMARY | 2024-09-18 12:31 | XMS_ITS | Encounter Summary ---
Author Organization [facility] Address [address] [place] [address]. [place] [address] [place] [address] Care Team Providers Care Promotions Assistant Sales Marketing Name Role Phone Santos Fuentes MD Unavailable [facility] Gino Wong MD Primary Care Provider [phone] Shana Adams NP Unavailable Unavailable Christel Lu MD Unavailable Encounter Details Date Type Department Care Team (Late Contact Info) Description 02/15/2021 Abstract [facility] [address] [place] [address] Santos Fuentes MD Social History Tobacco Use Types Packs/Day Years Used Date Smoking Tobacco: Never Smokeless Tobacco: Never Alcohol Use Standard Drinks/Week Comments No 0 (1 standard drink = 0.6 oz pur e alcohol) Comments Unknown Sex and Gender Information Value Date Recorded Sex Assigned at Female 09/01/2024 10:13 AM SUPERVISOR PARKING LOT Legal Sex Female 10:21 PM CDT Gender Identity Not on file Sexual Orientation Not on file Occupation Industry Job Start Date Job End Date retired Not on file Not on file Not on file COVID-19 Exposure Response Date Recorded In the last month, have you been in contact with someone who was confirmed or suspected to have Coronavirus / COVID-19? No / Unsure 01/17/2021 8:34 AM CDT documented as of this encounter Plan of Treatment Upcoming Encounters Date Type Department Care Team (Late Contact Info) Description 10/12/2024 3:45 PM SUPERVISOR PARKING LOT Office Visit [facility] [address] [place] [address] Stella Llanos MD [address] [place], [place] [address] 12/07/2024 1:15 AM CDT Allied Health/Nurse Visit [facility] [address] [place] [address] Christel Lu MD [address] [place] [address] documented as of this encounter Procedures Procedure Name Priority Date/Time Associated Diagnosis Comments CMP (ABSTRACTED LAB) Routine 09/02/2020 documented in this encounter Results * CMP (ABSTRACTED LAB) (09/02/2020) SODIUM S/P/B 138 136 - 145 POTASSIUM S/P/B 4.4 3.5 - 5.1 CHLORIDE S/P/B 104 98 - 108 CO2 25 21 - 32 BUN 15 7 - 18 CREATININE S/P/B 1.00 0.55 - 1.02 EGFR NON-AFR. AMER. 53 <=90 CALCIUM S/P/B 8.7 8.5 - 10.1 GLUCOSE 91 70 - 99 mg/dL TOTAL PROTEIN S/P/B 7.2 6.4 - 8.2 ALBUMIN S/P/B 3.4 3.4 - 5.0 AST 20 15 - 37 ALT 12 14 - 59 ALKALINE PHOSPHATASE S/P/B 110 46 - 116 BILIRUBIN TOTAL S/P/B 0.3 0.00 - 1.00 09/02/2020 Gino Meyer MD LAB-OUTSIDE/ABSTRACTED Final Re sult documented in this encounter Visit Diagnoses Not on filedocumented in this encounter Additional Health Concerns Infection Onset Date Last Indicated Resolved Time COVID-19 Rule Out 04/24/2022 04/24/2022 04/24/2022 4:06 AM CDT documented as of this encounter Care Teams Promotions Assistant Sales Marketing Relationship Specialty Start Date End Date Gino Meyer MD [address] [place] [phone] PCP - General INTERNAL MEDICINE 06/11/17 Santos Fuentes MD [place]ue Quality Officer CARDIOVASCULAR DISEASE 02/06/17 08/31/24 Shana Adams NP [address] [place] [address] Referring Physician Nurse Practitioner Family 02/27/23 Christel Lu MD [address] [place] [address] EP Quality Officer CLINICAL CARDIAC ELECTROPHYSIOLOGY 06/12/23 documented as of this encounter
--- OUTSIDE RECORDS SUMMARY | 2024-09-18 12:31 | XMS_ITS | Encounter Summary ---
Author Organization [facility] Address [address] [place] [address]. [place] [address] [place] [address] Care Team Providers Care Production Metal Sprayer Name Role Phone Toy Warren MD Primary Care Provider [phone] Santos Fuentes MD Unavailable UnavailGino Mena MD Primary Care Provider [phone] Shana Adams NP Unavailable Unavailable Christel Lu MD Unavailable Encounter Details Date Type Department Care Team (Late st Contact Info) Description 03/06/2017 Abstract [facility] [address] [place] [address] Santos Fuentes MD Social History Tobacco Use Types Packs/Day Years Used Date Smoking Tobacco: Never Alcohol Use Standard Drinks/Week Comments No 0 (1 standard drink = 0.6 oz pur e alcohol) Comments Unknown Sex and Gender Information Value Date Recorded Sex Assigned at Female 09/01/2024 10:13 AM BAKERY WORKER Legal Sex Female 10:21 PM CDT Gender Identity Not on file Sexual Orientation Not on file Occupation Industry Job Start Date Job End Date retired Not on file Not on file Not on file documented as of this encounter Plan of Treatment Upcoming Encounters Date Type Department Care Team (Late Contact Info) Description 10/12/2024 3:45 PM BAKERY WORKER Office Visit [facility] [place] [address] Stella Llanos MD [address] [place] [address] [place] [address] 12/07/2024 1:15 AM CDT Allied Health/Nurse Visit [facility] ld [address] [place] [address] Christel Lu MD [address] [place] [address] documented as of this encounter Visit Diagnoses Not on filedocumented in this encounter Additional Health Concerns Infection Onset Date Last Indicated Resolved Time COVID-19 Rule Out 04/24/2022 04/24/2022 04/24/2022 4:06 AM CDT documented as of this encounter Care Teams Production Metal Sprayer Relationship Specialty Start Date End Date Toy Warren MD [address] [place] [address] PCP - General INTERNAL MEDICINE 02/06/17 06/10/17 Gino Meyer MD [address] [place] [address] PCP - General INTERNAL MEDICINE 06/11/17 Santos Fuentes MD [address] [place] [address] [place] Clinical Study Manager CARDIOVASCULAR DISEASE 02/06/17 08/31/24 Shana Adams NP [address] [place] [address] Referring Physician Nurse Practitioner Family 02/27/23 Christel Lu MD [address] [place] [address] EP Clinical Study Manager CLINICAL CARDIAC ELECTROPHYSIOLOGY 06/12/23 documented as of this encounter
--- OUTSIDE RECORDS SUMMARY | 2024-09-18 12:31 | XMS_ITS | Encounter Summary ---
Author Organization [facility] Address [address] [place] [address]. [place], [place] [address] [place] [address] Care Team Providers Care Assisted Living Home Director Name Role Phone Santos Fuentes MD Unavailable UnavailGino Mena MD Primary Care Provider [phone] Shana Adams NP Unavailable Unavailable Christel Lu MD Unavailable Encounter Details Date Type Department Care Team (Late st Contact Info) Description 12/06/2022 Hospital Follow-up Call [facility] [address] [place] [address] Stephie Arreola RN Social History Tobacco Use Types Packs/Day Years [...] place to sleep or slept in a nursing home (including now)? Yes 11/29/2022 Comments No Sex and Gender Information Value Date Recorded Sex Assigned at Female 09/01/2024 10:13 AM STOCKROOM WORKER Legal Sex Female 10:21 PM CDT Gender Identity Not on file Sexual Orientation Not on file Occupation Industry Job Start Date Job End Date retired Not on file Not on file Not on file COVID-19 Exposure Response Date Recorded In the last 10 days, have yo u been in contact with someone who was confirmed or suspected to have Coronavirus/COVID-19? No / Unsure 11/29/2022 10:25 AM CDT documented as of this encounter Functional Status * Are you deaf or do you have serious difficulty hearing Answer Date of Assessment Author Status No 11/29/2022 1:48 PM CDT Helga Hallman R N Active * Are you blind or do you have serious difficulty seeing, even when wearing glasses? Answer Date of Assessment Author Status No 11/29/2022 1:48 PM CDT Helga Hallman R N Active * Do you have serious difficulty [...] R N Active documented in this encounter Plan of Treatment Upcoming Encounters Date Type Department Care Team (Late st Contact Info) Description 10/12/2024 3:45 PM STOCKROOM WORKER Office [facility] [place] [address] Stella Llanos MD [address] [place] [address] 12/07/2024 1:15 AM CDT Allied Health/Nurse Visit [facility] [address] [place] [address] Christel Lu MD [address] [place] [address] documented as of this encounter Goals Goal Patient Goal Type Associated Problems Recent Progress Patient-Stated? Author Safety ? Patient/family will have appropriate support at home upon discharge Lifestyle No Merissa Santiago RN Safety ? Patient/family will have appropriate support at home upon discharge Lifestyle No Elina Lambert RN documented as of this encounter Visit Diagnoses Not on filedocumented in this encounter Care Teams Assisted Living Home Director Relationship Specialty Start Date End Date Gino Meyer MD [address] [place] [phone] PCP - General INTERNAL MEDICINE 06/11/17 Santos Fuentes MD [place] Shared Services Representative CARDIOVASCULAR DISEASE 02/06/17 08/31/24 Shana Adams NP [address] [place] [address] Referring Physician Nurse Practitioner Family 02/27/23 Christel Lu MD [address] [place] [address] EP Shared Services Representative CLINICAL CARDIAC ELECTROPHYSIOLOGY 06/12/23 documented as of this encounter
--- OUTSIDE RECORDS SUMMARY | 2024-09-18 12:31 | XMS_ITS | Clinical Summary ---
Author Organization [facility] Address [facility] [place] [address] [place] [address] Care Team Providers Care Master Fire Control Technician Name Role Phone Gino Meyer MD Primary Care Provider [phone] Christel Mejia MD Unavailable Allergies No known active allergies Medications aspirin 81 MG tablet Take 1 tablet (81 mg total) by mouth daily. 11/21/19 16 Active nitroglycerin 0.[address] 1 tablet (0.4 mg total) under the tongue every 5 (five) minutes as needed for Chest Pain. 28 tablet 11 03/18/20 21 Active montelukast (SINGULAIR) 10 MG tablet Take 1 tablet (10 mg total) by mouth daily. In evening 04/18/20 22 Active multi vitamin/minerals (THERA-M ENHANCED) tablet Take 1 tablet by mouth daily. Active spironolactone (ALDACTONE) 25 MG tablet Take 0.5 tablets (12.5 mg total) by mouth daily. 30 tablet 5 04/28/20 22 Active Additional Information Patient taking differently: 25 mgOral Daily, Reported on 09/08/2024 anastrozole (ARIMIDEX) 1 MG tablet Take 1 tablet by mouth daily. 11/24/19 23 Active sacubitril-valsa rtan (ENTRESTO) 24-26 MG tablet Take 1 tablet by mouth 2 (two) times daily. Active Calcium-Magnesiu m-Vitamin D (CALCIUM 1200+D3 OR) Take 1 tablet by mouth daily. Active albuterol sulfate HFA 108 (90 Base) MCG/ACT inhaler Inhale 2 puffs into the lungs every 4 (four) hours as needed for Wheezing or Shortness of breath. 8 g 12/05/19 Active empagliflozin (JARDIANCE) 10 MG tablet Take 1 tablet (10 mg total) by mouth daily. 30 tablet 12/06/19 Active ipratropium-albu terol (COMBIVENT RESPIMAT) 20-100 MCG/ACT inhaler Inhale 1 puff into the lungs 4 (four) times daily. Please provide assembled. 4 g 12/05/19 Active Additional Information Patient taking differently:1 puff InhalationBID, Please provide assembled., Reported on 09/08/2024 atorvastatin (LIPITOR) 10 MG tablet TAKE ONE TABLET BY MOUTH NIGHTLY AT BEDTIME 30 tablet 11 12/31/19 23 Active digoxin (LANOXIN) 0.125 MG tablet Take 1 tablet (0.125 mg total) by mouth daily. 05/30/20 23 Active apixaban (ELIQUIS) 5 MG tabletIndication s:Atrial fibrillation (CMS/HCC HHS/HCC) Take 1 tablet (5 mg total) by mouth 2 (two) times daily. 60 tablet 2 08/10/20 24 Active carvedilol (COREG) 12.5 MG tabletIndication s:Atrial fibrillation (CMS/HCC HHS/HCC) Take 1 tablet (12.5 mg total) by mouth 2 (two) times daily. 60 tablet 08/11/20 24 Active HYDROcodone-acet aminophen (NORCO) 5-325 MG tablet as needed. 07/20/20 24 Active gabapentin (NEURONTIN) 300 MG capsule Take 2 capsules (600 mg total) by mouth 3 (three) times daily. Active furosemide (LASIX) 80 MG tablet Take 1 tablet (80 mg total) by mouth 2 (two) times daily. 180 tablet 09/08/19 25 Active furosemide (LASIX) 40 MG tablet Take 2 tablets (80 mg total) by mouth daily. 60 tablet 12/05/19 23 025 Discontinu ed(Reorder ) traMADol (ULTRAM) 50 MG tabletIndication s:Acute Pain < 7 Day Supply Take 1 tablet (50 mg total) by mouth every 4 (four) hours as needed for Pain. Indications: Acute Pain < 7 Day Supply 28 tablet 12/06 025 Discontinu ed(Discont inued by another clinician) Active Problems Problem Noted Date Diagnosed Date Breast cancer ([facility]) 07/23/2023 S/P coronary artery stent placement 03/18/2021 Mixed hyperlipidemia 07/10/2017 Stage 2 chronic kidney disease 06/14/2014 Non-ischemic cardiomyopathy ([facility]) AICD (automatic cardioverter/defibrillator) pres ent Hypertension Coronary artery disease Systolic heart failure ([facility]) Resolved Problems Problem Noted Date Diagnosed Date Resolved Date Hypotension due to hypovolemia 04/25/2022 06/13/2023 Obesity (BMI 30-39.9) 07/10/20172021 Encounters Date Type Department Care Team Description 09/16/2024 10:39 AM PLATER PRODUCTION - 09/16/2024 11:59 PM PLATER PRODUCTION Hospital Encounter [facility] [address] [place] [address] Barbi Day, COMMERCIAL ESTIMATOR Discharge Disposition: Home or Self Care (Routine Discharge) 09/16/2024 Travel 09/16/2024 Telephone [facility] [address] [place] [address] Jaida Yee APRN, MECHANIC CHIEF-C Question 09/10/2024 Telephone [facility] [place] [address] [place] [address] Jaida Yee APRN, MECHANIC CHIEF-C Follow Up Call 09/10/2024 Abstract [facility] [address] [place] [address] Abstract, Doc Pccl 09/08/2024 11:00 AM PLATER PRODUCTION Office Visit [facility] [address] [place] [address] Jaida Yee APRN, MECHANIC CHIEF-C Follow Up; CHF 09/08/2024 Telephone [facility] [address] [place] [address] Stella Llanos MD Appointment Request 09/08/2024 [facility] [facility] [address] [place] [address] Jaida Yee APRN, MECHANIC CHIEF-C Referral 09/08/2024 Travel 09/01/2024 11:15 AM PLATER PRODUCTION Allied Health[facility] [address] [place] [address] Christel Mejia MD 09/01/2024 11:15 AM PLATER PRODUCTION [facility] [address] [place] [address] Christel Mejia MD Follow Up; Cardiac Device Management; Atrial Fibrillation 09/01/2024 Orders Only [facility] [address] [place] [address] Jaida Yee APRN, MECHANIC CHIEF-C 09/01/2024 Telephone [facility] [address] [place] [address] Jaida Yee APRN, MECHANIC CHIEF-C Appointment Request 09/01/2024 Travel 08/31/2024 Scan [facility] [address] [place] [address] Scanned, Doc Pccl 08/31/2024 Orders Only [facility] [address] [place] [address] Christel Mejia MD 08/31/2024 Telephone [facility] [address] [place] [address] Christel Mejia MD Record Request 08/28/2024 Scan [facility] [address] [place] [address] Scanned, Doc Pccl 08/28/2024 Telephone [facility] [address] [place] [address] Christel Mejia MD Record Request 08/25/2024 Telephone [facility] [address] [place] [address] Christel Mejia MD Reschedule 08/20/2024 Orders Only [facility] [address] [place] [address] Christel Mejia MD 08/10/2024 Telephone [facility] [address] [place] [address] Christel Mejia MD Appointment Request 06/29/2024 9:30 AM PLATER PRODUCTION Allied Health/Nurse Visit [facility] [address] [place] [address] Christel Mejia MD from Last 3 Months Immunizations Name Administration Dates Next Due Fluad influenza vaccine, Tk drivalent (aIIV4), Inactivated, adjuvanted, preservative free, 0.5 mL,IM use 05/25/2020 Influenza (Generic) 05/22/2019 Influenza Adult (Generic) 05/02/2018,07/05/2017 Pneumococcal (Pneumovax 23) 04/09/2017 Pneumococcal (Prevnar 13) 06/02/2019 Family History Medical History Relation Comments Heart Attack Father Dementia Mother Relation Status Comments Father Maternal Grandfather Maternal Grandmother Mother Paternal Grandfather Paternal Grandmother Social History Tobacco Use Types Packs/Day Years Used Date Smoking Tobacco: Never Smokeless Tobacco: Never Tobacco Cessation:Counseling Given: Not Answered Alcohol Use Standard Drinks/Week Comments No 0 [...] Sex Assigned at Female 09/01/2024 10:13 AM PLATER PRODUCTION Legal Sex Female 10:21 PM CDT Gender Identity Not on file Sexual Orientation Not on file Occupation Industry Job Start Date Job End Date retired Not on file Not on file Not on file Last Filed Vital Signs Vital Sign Reading Time Taken Comments Blood Pressure 110/80 09/08/2024 10:51 AM PLATER PRODUCTION Pulse 112 09/08/2024 10:51 AM PLATER PRODUCTION Temperature 36.8 ??C (98.2 ??F) 08/30/2023 12:[address] Respiratory Rate 16 09/08/2024 10:51 AM PLATER PRODUCTION Oxygen Saturation 94% 09/08/2024 10:51 AM PLATER PRODUCTION Inhaled Oxygen Concentration - - Weight 87.5 kg (193 lb) 09/08/2024 10:51 AM PLATER PRODUCTION Height 152.4 cm (5') 09/08/2024 10:51 AM PLATER PRODUCTION Body Mass Index 37.69 09/08/2024 10:51 AM PLATER PRODUCTION Plan of Treatment Upcoming Encounters Date Type Department Care Team (Late st Contact Info) Description 10/12/2024 3:45 PM PLATER PRODUCTION Office Visit [facility] [place] [address] Stella Llanos MD [address] [place] [address] 12/07/2024 1:15 AM CDT [facility] [address] [place] [address] Christel Mejia MD [address] [place] [address] Health Maintenance Due Date Last Done Comments ASCVD Statin 1940 DTaP, Tdap and Td Vaccines (1 - Tdap) 1960 Zoster Vaccines (1 of 2) 1959 Annual Medicare Wellness Visit 2006 Dexa Scan (General) 2006 RSV Immunization or 60+ Years (1 - 1-dose 75+ series) 2016 COVID-19 Vaccine (3 - Pfizer risk series) 11/10/2020 10/13/2020, 09/22/2020 ASCVD LDL 03/27/2022 03/27/2021 Influenza Adult (#1) 2024 05/25/2020, 05/22/2019, 05/02/2018, Additional history exists Pneumococcal Vaccine: 65+ Years Completed 06/02/2019, 04/09/2017 Meningococcal B Vaccine Aged Out No l onger eligible based on patient's age to complete this topic Meningococcal Vaccine Aged Out No anette nishi eligible based on patient's age to complete this topic RSV Immunizations Under 20 Months Aged Out No longer eligible based on patient's age to complete this topic Goals Goal Patient Goal Type Associated Problems Recent Progress Patient-Stated? Author Safety ? Patient/family will have appropriate support at home upon discharge Lifestyle No Merissa Santiago RN Safety ? Patient/family will have appropriate support at home upon discharge Lifestyle No Elina Lambert RN Medical Devices Implanted Type Area Fence Manufacture Supervisor Device Identifier Shelf Expiration Date Model / Serial / Lot [employer] Vigilant El Dr-08/30/2023 Implanted:Qty: 1 on 08/30/2023 by Christel Mejia MD ICD [employer] 12/28/2024 [id number] / [id number] / Description:DX: NIC MRI Conditional under following conditions: Static magnetic field of 1.5 T or 3 T, Max spatial gradient field of 5000 Gauss/cm or less, Max slew rate 200 T/m/s , WHOLE BODY TERESO OF 2 W/KG OR LESS, HEAD TERESO 3.2 W/KG OR LESS , Supine or Prone only [employer] Ra-08/30/2023 Implanted:Qty: 1 on 08/30/2023 by Christel Mejia MD Lead Implant [employer] 01/04/2025 [id number] / [id number] / [employer] Rv-08/30/2023 Implanted:Qty: 1 on 08/30/2023 by Christel Mejia MD Lead Implant [employer] 04/08/2024 [id number] / [id number] / Cv Synergy Xd Jose-Lad- 021 Implanted:02/18 by Russell Bentley MD (Quantity not on file) Stent Coronary LAD [employer] 10/05/2022 [id number] / / [id number] Cv Synergy Xd Jose-Roby-2020 Implanted:02/18 by Russell Bentley MD (Quantity not on file) Stent Coronary LAD [employer] 11/17/2022 [id number] / / [id number] Procedures Procedure Name Priority Date/Time Associated Diagnosis Comments ELECTROCARDIOGRAM (NON MIDMARK ACQUIRED) Routine 09/01/2024 10:27 AM PLATER PRODUCTION Atrial fibrillation, unspecified type ([facility]) AICD (automatic cardioverter/defibri llator) present COMPREHENSIVE METABOLIC PANEL Routine 08/31/2024 CBC, MANUAL DIFF Routine 08/31/2024 LIPID PANEL Routine 03/27/2021 10:35 AM CDT skilled nursing use of drug Hyperlipidemia, unspecified hyperlipidemia type from Last 3 Months or Most Recently Relevant to Health Maintenance Results * ELECTROCARDIOGRAM (09/01/2024 10:27 AM PLATER PRODUCTION) 09/01/2024 10:2 7 AM PLATER PRODUCTION Narrative [facility] - 09/07/2024 7:54 AM PLATER PRODUCTION ? [facility] ?[address] [place], [place] ??[address] ? Test Date: ?2024-09-01 Pat Name: ? JENNIFER MOREAU ?Department: ?? 105 ? Room: ? Gender: ? Female ? Forensic Toxicologist: ?? DAP : ?1940 ? Requested By: CHRISTEL MEJIA Order Number: [id number] ?Reading MD: ?? Christel Mejia ? Measurements Intervals ?[place] ? Rate: ? 91 ? P: ?44 MN: ? 185 ?QRS: ?-54 QRSD: ? 115 ?T: ?123 QT: ? 368 ? QTc: ?455 ? Interpretive Statements SINUS RHYTHM LEFT AXIS DEVIATION MODERATE INTRAVENTRICULAR CONDUCTION DELAY ST DEVIATION AND MODERATE T-WAVE ABNORMALITY, CONSIDER LATERAL ISCHEMIA ER PRODUCTION Procedure Note Christel Mejia MD - 09/07/2024 [facility] [address] [place] [address] Test Date: 2024-09-01 Pat Name: JENNIFER CABALLERORINE Department: 105 Room: Gender: Female Forensic Toxicologist: GIO : 1940 Requested By: CHRISTEL MEJIA Order Number: [id number] Nabor MD: Christel Mejia Measurements Intervals [place] Rate: 91 P: 44 MN: 185 QRS: -54 QRSD: 115 T: 123 QT: 368 QTc: 455 Interpretive Statements SINUS RHYTHM LEFT AXIS DEVIATION MODERATE INTRAVENTRICULAR CONDUCTION DELAY ST DEVIATION AND MODERATE T-WAVE ABNORMALITY, CONSIDER LATERAL ISCHEMIA ER PRODUCTION Christel Mejia MD PROCEDURES-ORDERABLE NO CHARGE F inal Result [facility] * (ABNORMAL) COMPREHENSIVE METABOLIC PANEL (08/31/2024) SODIUM S/P/B 138 GLUCOSE 103 mg/dL AST 31 BUN 27 CREATININE S/P/B 1.23(A) 0.5 - 1.0 CALCIUM S/P/B 8.0 POTASSIUM S/P/B 3.8 CHLORIDE S/P/B 102 ALT 21 GFR ESTIMATE 42 Narrative Resulting Agency Comment [facility] Default History Genericprovider LABORATORY Final Result * CBC, MANUAL DIFF (08/31/2024) WBC 7.4 HGB 10.8 HCT 35.8 PLT 231 Narrative Resulting Agency Comment [facility] Default History Genericprovider LABORATORY Final Result * LIPID PANEL (03/27/2021 10:35 AM CDT) CHOLESTEROL 201 MG/DL 03/27/2021 11:16 AM CDT [facility] Comment:BORDERLINE HIGH: 200 -239 TRIGLYCERIDES 175 MG/DL 03/27/2021 11:16 AM CDT [facility] Comment:150-199 BORDERLINE H IGH HDL 56 >49 MG/DL 03/27/2021 11:16 AM CDT [facility] LDL (CALCULATED) 110 MG/DL 03/27/20 11:16 AM CDT [facility] Comment:100-129 NEAR OR ABOV E OPTIMAL VLDL CALCULATION 35 MG/DL 03/27/20 11:16 AM CDT [facility] Comment:REFERENCE RANGE NOT ESTABLISHED CHOL/HDL RATIO 3.6 03/27/2021 11:16 AM CDT [facility] Comment:REFERENCE RANGE NOT ESTABLISHED LDL/HDL 2.0 03/27/2021 11:16 AM CDT [facility] Comment:REFERENCE RANGE NOT ESTABLISHED NON HDL CHOLESTEROL 145 MG/DL 03/27/2021 11:16 AM CDT [facility] Comment:REFERENCE RANGE NOT ESTABLISHED 03/27/2021 10:3 5 AM CDT us POLLO Brand APRN LABORATORY Final Result [facility] [address] [place] [address], [place] [phone] [id number] from Last 3 Months or Most Recently Relevant to Health Maintenance Insurance [facility] MEDICAID [facility] MEDICAID Advance Directives Documents on File Type Date Recorded Patient Dielectric Tester Expl anation Advance Directives and Living Will 04/21/2021 2:05 PM Moose Moreau Advance Directives and Living Will 04/21/2021 2:05 PM POL Advance Directives and Living Will 06/21/2017 9:24 AM Living will * DNR (Latest Code Status on File) Date Activated Date Inactivated Comments 07/23/2023 5:58 PM 07/24/2023 3:01 PM * Full Code Date Activated Date Inactivated Comments 07/23/2023 4:00 PM 07/23/2023 5:58 PM * Full Code Date Activated Date Inactivated Comments 11/29/2022 9:06 PM 12/04/2022 4:01 PM * Full Code Date Activated Date Inactivated Comments 11/29/2022 4:09 PM 11/29/2022 9:05 PM * DNR Date Activated Date Inactivated Comments 11/29/2022 1:31 PM 11/29/2022 4:09 PM Care Teams Master Fire Control Technician Relationship Specialty Start Date End Date Gino Meyer MD [address] [place] [address] PCP - General INTERNAL MEDICINE 06/11/17 Christel Mejia MD [address] [place] [address] EP Pipe Cleaning Machine Operator CLINICAL CARDIAC ELECTROPHYSIOLOGY 06/12/23
--- OUTSIDE RECORDS SUMMARY | 2024-09-18 12:31 | XMS_ITS | Encounter Summary ---
Author Organization [facility] Address [address] [place] [address]. [place] [address] [place] [address] Care Team Providers Care Burial Needs Salesperson Name Role Phone Toy Warren MD Primary Care Provider [phone] Santos Fuentes MD Unavailable UnavailGino Mena MD Primary Care Provider [phone] Shana Adams NP Unavailable Unavailable Christel Lu MD Unavailable Encounter Details Date Type Department Care Team (Late st Contact Info) Description 01/31/2017 Abstract [facility] [address] [place] [address] Santos Fuentes MD Social History Tobacco Use Types Packs/Day Years Used Date Smoking Tobacco: Never Alcohol Use Standard Drinks/Week Comments No 0 (1 standard drink = 0.6 oz pur e alcohol) Comments Unknown Sex and Gender Information Value Date Recorded Sex Assigned at Female 09/01/2024 10:13 AM COVER ASSEMBLER Legal Sex Female 10:21 PM CDT Gender Identity Not on file Sexual Orientation Not on file Occupation Industry Job Start Date Job End Date retired Not on file Not on file Not on file documented as of this encounter Plan of Treatment Upcoming Encounters Date Type Department Care Team (Late Contact Info) Description 10/12/2024 3:45 PM COVER ASSEMBLER Office Visit [facility] [place] [address] Stella Llanos MD [address] [place] [address] [place] [address] 12/07/2024 1:15 AM CDT Allied Health/Nurse Visit [facility] ld [address] [place] [address] Christel Lu MD [address] [place] [address] documented as of this encounter Visit Diagnoses Not on filedocumented in this encounter Additional Health Concerns Infection Onset Date Last Indicated Resolved Time COVID-19 Rule Out 04/24/2022 04/24/2022 04/24/2022 4:06 AM CDT documented as of this encounter Care Teams Burial Needs Salesperson Relationship Specialty Start Date End Date Toy Warren MD [address] [place] [address] PCP - General INTERNAL MEDICINE 02/06/17 06/10/17 Gino Meyer MD [address] [place] [address] PCP - General INTERNAL MEDICINE 06/11/17 Santos Fuentes MD [address] [place] [address] Randolph Binder Selector CARDIOVASCULAR DISEASE 02/06/17 08/31/24 Shana Adams NP [address] [place] [address] Referring Physician Nurse Practitioner Family 02/27/23 Christel Lu MD [address] [place] [address] EP Binder Selector CLINICAL CARDIAC ELECTROPHYSIOLOGY 06/12/23 documented as of this encounter
[2024-09-18 13:03] LABS: Hematocrit 41.1 % (35.0-42.0); Hemoglobin 12.3 g/dL (11.7-13.8); Mean Corpuscular HGB Conc 29.9 g/dL (32-36); Mean Corpuscular Volume 90.3 fL (78.0-102.0); Mean Platelet Volume 11.1 fl (9.2-11.8); Platelet Count Result 243 K/mm3 (150-420); Red Blood Count 4.55 M/mm3 (4.20-5.40); Red Cell Distribution Width 17.2 % (11.6-14.4); White Blood Count 8.4 K/mm3 (4.8-10.8)
[2024-09-18 13:32] LABS: Alanine Aminotransferase 36 U/L (14-59); Albumin Level 3.2 g/dL (3.4-5.0); Alkaline Phosphatase 117 U/L (46-116); Anion Gap 13 mmol/L (4-12); Aspartate Amino Transferase 34 U/L (15-37); Bilirubin,Total 0.8 mg/dL (0.00-1.00); Blood Urea Nitrogen 37 mg/dL (7-18); Calcium 8.6 mg/dL (8.5-10.1); Carbon Dioxide 23 mmol/L (21-32); Chloride 100 mmol/L (98-108); Estimated Glomerular Filt Rate 30; Glucose 175 mg/dL (70-99); Magnesium 2.4 mg/dL (1.8-2.4); NT Pro B Type Natriuretic Pept 14350 pg/mL (0-450); Osmolality Calculated 294 mOsm/kg (285-295); Sodium 136 mmol/L (136-145); Total Protein 6.3 g/dL (6.4-8.2)
[2024-09-18 13:40] LABS: Digoxin 2.1 ng/mL (0.9-2.0)
== END 2024-09-18 12:28 | disposition home or self-care (01) ==
LOC: CHSLAB 12:29
PROVIDERS: PCP Internal Medicine; Visit Provider Internal Medicine
DX: I50.9 Heart failure, unspecified (principal)
CPT/HCPCS: 36415; 80053; 80162; 83735; 83880; 85027

== ENCOUNTER 2024-09-24 11:47 | Outpatient (CLI) | payer MEDICARE, SELFPAY ==
--- OUTSIDE RECORDS SUMMARY | 2024-09-24 11:58 | XMS_ITS | Encounter Summary ---
Author Organization [facility] Address [facility] [place] [address] Care Team Providers Care Microcomputer Technician Name Role Phone Toy Warren MD Primary Care Provider [phone] Santos Fuentes MD Unavailable UnavailGino Mena MD Primary Care Provider [phone] Shana Adams NP Unavailable Unavailable Christel Lu MD Unavailable Encounter Details Date Type Department Care Team (Late st Contact Info) Description 03/06/2017 Abstract [facility] [address] [place] [address] Santos Fuentes MD Social History Tobacco Use Types Packs/Day Years Used Date Smoking Tobacco: Never Alcohol Use Standard Drinks/Week Comments No 0 (1 standard drink = 0.6 oz pur e alcohol) Comments Unknown Sex and Gender Information Value Date Recorded Sex Assigned at Female 09/01/2024 10:13 AM SCALLOP CUTTER MACHINE Legal Sex Female 10:21 PM CDT Gender Identity Not on file Sexual Orientation Not on file Occupation Industry Job Start Date Job End Date retired Not on file Not on file Not on file documented as of this encounter Plan of Treatment Upcoming Encounters Date Type Department Care Team (Late st Contact Info) Description 10/12/2024 3:45 PM SCALLOP CUTTER MACHINE Office Visit [facility] [place] [address] Stella Llanos MD [address] [place] [address] 12/07/2024 1:15 AM CDT Allied Health/Nurse Visit [facility] ld [address] [place] [address] Christel Lu MD [address] [place] [address] documented as of this encounter Visit Diagnoses Not on filedocumented in this encounter Additional Health Concerns Infection Onset Date Last Indicated Resolved Time COVID-19 Rule Out 04/24/2022 04/24/2022 04/24/2022 4:06 AM CDT documented as of this encounter Care Teams Microcomputer Technician Relationship Specialty Start Date End Date Toy Warren MD [address] [place] [address] PCP - General INTERNAL MEDICINE 02/06/17 06/10/17 Gino Meyer MD [address] [place] [address] PCP - General INTERNAL MEDICINE 06/11/17 Santos Fuentes MD [address] [place] [address] [place] Linseed Oil Boiler CARDIOVASCULAR DISEASE 02/06/17 08/31/24 Shana Adams NP [address] [place] [address] Referring Physician Nurse Practitioner [facility] 02/27/23 Christel Lu MD [address] [place] [address] EP Linseed Oil Boiler CLINICAL CARDIAC ELECTROPHYSIOLOGY 06/12/23 documented as of this encounter
--- OUTSIDE RECORDS SUMMARY | 2024-09-24 11:58 | XMS_ITS | Clinical Summary ---
Author Organization [facility] Address [address] [place] [address] Care Team Providers Care Health Commissioner Name Role Phone Gino Meyer MD Primary Care Provider [phone] Christel Mejia MD Unavailable Allergies No known [...] or Shortness of breath. 8 g 12/05/19 23 Active empagliflozin (JARDIANCE) 10 MG tablet Take 1 tablet (10 mg total) by mouth daily. 30 tablet 12/06/19 23 Active ipratropium-albu terol (COMBIVENT RESPIMAT) 20-100 MCG/ACT [...] 1 tablet (0.125 mg total) by mouth every other day. 05/30/20 23 Active apixaban (ELIQUIS) 5 MG [...] times daily. 180 tablet 09/08/19 25 Active metOLazone (ZAROXOLYN) 2.5 MG tablet TAKE ONE PILL EVERY OTHER DAY. Pt should take metolazone 30 minutes before taking Furosamide in the morning. 30 tablet 09/22/19 25 Active furosemide (LASIX) 40 MG tablet Take 2 tablets (80 mg total) by mouth daily. 60 tablet 12/05/19 23 025 Discontinu ed(Reorder ) traMADol (ULTRAM) 50 MG tabletIndication s:Acute Pain < 7 Day Supply Take 1 tablet (50 mg total) by mouth every 4 (four) hours as needed for Pain. Indications: Acute Pain < 7 Day Supply 28 tablet 07/24/20 23 025 Discontinu ed(Discont inued by another clinician) metOLazone (ZAROXOLYN) 2.5 MG tablet Take 1 tablet (2.5 mg total) by mouth daily. Pt should take metolazone 30 minutes before taking Furosamide in the morning. 30 tablet 09/22/19 25 025 Discontinu ed(Reorder ) Active Problems Problem Noted Date Diagnosed Date Breast cancer ([facility]) 07/23/2023 S/P coronary artery stent placement 03/18/2021 Mixed hyperlipidemia 07/10/2017 Stage 2 chronic kidney disease 06/14/2014 Non-ischemic cardiomyopathy ([facility]) AICD (automatic cardioverter/defibrillator) pres ent Hypertension Coronary artery disease Systolic heart failure ([facility]) Resolved Problems Problem Noted Date Diagnosed Date Resolved Date Hypotension due to hypovolemia 04/25/2022 06/13/2023 Obesity (BMI 30-39.9) 07/10/20172021 Encounters Date Type Department Care Team Description 09/22/2024 Abstract [facility] [address] [place] [address] Jaida Yee APRN, AUTOMATIC WHEEL LINE OPERATOR-C 09/22/2024 Telephone [facility] [address] [place] [address] Jaida Yee APRN, AUTOMATIC WHEEL LINE OPERATOR-C Other 09/16/2024 10:39 AM HELP DESK ANALYST - 09/16/2024 11:59 PM HELP DESK ANALYST Hospital Encounter [facility] [address] [place] [address] Barbi Day, CORD MAKER Discharge Disposition: Home or Self Care (Routine Discharge) 09/16/2024 Travel 09/16/2024 Telephone [facility] [address] [place] [address] Jaida Yee APRN, AUTOMATIC WHEEL LINE OPERATOR-C Question 09/10/2024 Telephone [facility] [address] [place] [address] Jaida Yee APRN, AUTOMATIC WHEEL LINE OPERATOR-Angeli Follow Up Call 09/10/2024 Abstract [facility] [address] [place] [address] Abstract, Doc Pccl 09/08/2024 11:00 AM HELP DESK ANALYST [facility] [address] [place] [address] [phone] Jaida Yee APRN, AUTOMATIC WHEEL LINE OPERATOR-C Follow Up; CHF 09/08/2024 Telephone [facility] [address] [place] [address] Stella Llanos MD Appointment Request 09/08/2024 Telephone [facility] [address] [place] [address] [phone] Jaida Yee APRN AUTOMATIC WHEEL LINE OPERATOR-C Referral 09/08/2024 Travel 09/01/2024 11:15 AM HELP DESK ANALYST Allied Health/Nurse Visit [facility] [address] [place] [address] [phone] Christel Mejia MD 09/01/2024 11:15 AM HELP DESK ANALYST Office Visit [facility] [address] [place] [address] [phone] Christel Mejia MD Follow Up; Cardiac Device Management; Atrial Fibrillation 09/01/2024 Orders Only [facility] [address] [place] [address] Jaida Yee APRN, AUTOMATIC WHEEL LINE OPERATOR-C 09/01/2024 Telephone [facility] [address] [place] [address] Jaida Yee APRN, AUTOMATIC WHEEL LINE OPERATOR-C Appointment Request 09/01/2024 Travel 08/31/2024 Scan [facility] [address] [place] [address] Scanned, Doc Pccl 08/31/2024 Orders Only [facility] [address] [place] [phone] Christel Mejia MD 08/31/2024 Telephone [facility] [address] [place] [phone] Christel Mejia MD Record Request 08/28/2024 Scan [facility] [address] [place] [phone] Scanned, Doc Pccl 08/28/2024 Telephone [facility] [address] [place] [phone] Christel Mejia MD Record Request 08/25/2024 Telephone [facility] [address] [place] [phone] Christel Mejia MD Reschedule 08/20/2024 Orders Only [facility] [address] [place] [address] Christel Mejia MD 08/10/2024 Telephone [facility] [address] [place] [address] Christel Mejia MD Appointment Request 06/29/2024 9:30 AM HELP DESK ANALYST Allied Health/Nurse [facility] [address] [place] [address] [phone] Christel Mejia MD from Last 3 Months [...] place to sleep or slept in a fdc (including now)? Yes 11/29/2022 Comments No Sex and Gender Information Value Date Recorded Sex Assigned at Female 09/01/2024 10:13 AM HELP DESK ANALYST Legal Sex Female 10:21 PM CDT Gender Identity Not on file Sexual Orientation Not on file Occupation Industry Job Start Date Job End Date retired Not on file Not on file Not on file Last Filed Vital Signs Vital Sign Reading Time Taken Comments Blood Pressure 110/80 09/08/2024 10:51 AM HELP DESK ANALYST Pulse 112 09/08/2024 10:51 AM HELP DESK ANALYST Temperature 36.8 C (98.2 F) 08/30/2023 12:39 PM HELP DESK ANALYST Respiratory Rate 16 09/08/2024 10:51 AM HELP DESK ANALYST Oxygen Saturation 94% 09/08/2024 10:51 AM HELP DESK ANALYST Inhaled Oxygen Concentration - - Weight 87.5 kg (193 lb) 09/08/2024 10:51 AM HELP DESK ANALYST Height 152.4 cm (5') 09/08/2024 10:51 AM HELP DESK ANALYST Body Mass Index 37.69 09/08/2024 10:51 AM HELP DESK ANALYST Plan of Treatment Upcoming Encounters Date Type Department Care Team (Late st Contact Info) Description 10/12/2024 3:45 PM HELP DESK ANALYST Office Visit [facility] [place] [address] Stella Llanos MD [address] [place] [address] 12/07/2024 1:15 AM CDT Allied Health/Nurse Visit [facility] ld [address] [place] [phone] Chrsitel Mejia MD [address] [place] [address] Health Maintenance Due Date Last Done Comments [...] Associated Problems Recent Progress Patient-Stated? Author Safety Patient/family will have appropriate support at home upon discharge Lifestyle No Merissa Santiago RN Safety Patient/family will have appropriate support at home upon discharge Lifestyle No Elina Lambert, MARY LOU Medical Devices Implanted Type Area Commodity Broker Device Identifier Shelf Expiration Date Model / Serial / Lot [employer]iSync Vigshaent Kishan Dr-08/30/2023 Implanted:Qty: 1 on 08/30/2023 by Christel Mejia MD ICD ASSET4 MIKO 12/28/2024 [id number] / [id number] / Description:DX: NICM MRI Conditional under following conditions: Static magnetic field of 1.5 T or 3 T, Max spatial gradient field of 5000 Gauss/cm or less, Max slew rate 200 T/m/s , WHOLE BODY TERESO OF 2 W/KG OR LESS, HEAD TERESO 3.2 W/KG OR LESS , Supine or Prone only [employer]Sync Ra-08/30/2023 Implanted:Qty: 1 on 08/30/2023 by Christel Mejia MD Lead Implant ASSET4 MIKO 01/04/2025 [id number] / [id number] / OffiSync Rv-08/30/2023 Implanted:Qty: 1 on 08/30/2023 by Christel Mejia MD Lead Implant [employer] 04/08/2024 [id number] / [id number] / Cv Synergy Xd Jose-Lad- 021 Implanted:02/18 by Russell Bentley MD (Quantity not on file) Stent Coronary LAD [employer] 10/05/2022 [id number] / / [id number] Cv Synergy Xd Jose-Roby-2020 Implanted:02/18 by Russell Bentley MD (Quantity not on file) Stent Coronary LAD [employer] 11/17/2022 [id number] / / [id number] Procedures Procedure Name Priority Date/Time Associated Diagnosis Comments BASIC METABOLIC PANEL Routine 09/18/2024 [facility] use of drug BASIC METABOLIC PANEL Routine 09/09/2024 ELECTROCARDIOGRAM (NON MIDMARK ACQUIRED) Routine 09/01/2024 10:27 AM HELP DESK ANALYST Atrial fibrillation, unspecified type ([facility]) AICD (automatic cardioverter/defibri llator) present COMPREHENSIVE METABOLIC PANEL Routine 08/31/2024 CBC, MANUAL DIFF Routine 08/31/2024 LIPID PANEL Routine 03/27/2021 10:35 AM CDT o[facility] use of drug Hyperlipidemia, unspecified hyperlipidemia type from Last 3 Months or Most Recently Relevant to Health Maintenance Results * (ABNORMAL) BASIC METABOLIC PANEL (09/18/2024) Only the most recent of2 resultswithin the time period is included. SODIUM S/P/B 136 136 - 145 POTASSIUM S/P/B 4.0 3.5 - 5.1 CO2 23 21 - 32 CHLORIDE S/P/B 100 98 - 108 GLUCOSE 175(A) 70 - 99 mg/dL CALCIUM S/P/B 8.6 8.5 - 10.1 BUN 37(A) 7 - 18 CREATININE S/P/B 1.64(A) 0.55 - 1.02 GFR ESTIMATE 30(A) >=60 ANION GAP 13(A) 4 - 12 AST 34 15 - 37 ALT 36 14 - 59 TOTAL PROTEIN S/P/B 6.3(A) 6.4 - 8.2 ALBUMIN S/P/B 3.2(A) 3.4 - 5.0 ALKALINE PHOSPHATASE S/P/B 117(A) 46 - 116 MAGNESIUM 2.4 1.8 - 2.4 PRO-B TYPE NATRIURETIC PEPTIDE 14,350(A) 0 - 450 09/18/2024 Jaida Yee APRN AUTOMATIC WHEEL LINE OPERATOR-C LABORATORY Final Result * ELECTROCARDIOGRAM (09/01/2024 10:27 AM HELP DESK ANALYST) 09/01/2024 10:2 7 AM HELP DESK ANALYST Narrative [facility] - 09/07/2024 7:54 AM HELP DESK ANALYST [facility] [address] [place] [address] Test Date: 2024-09-01 Pat Name: JENNIFER CABALLERORINE Department: 105 Room: Gender: Female Cytologist: GIO : 1940 Requested By: CHRISTEL MEJIA Order Number: [id number] Nabor Mejia Measurements Intervals [place] Rate: 91 P: 44 CA: 185 QRS: -54 QRSD: 115 T: 123 QT: 368 QTc: 455 Interpretive Statements SINUS RHYTHM LEFT AXIS DEVIATION MODERATE INTRAVENTRICULAR CONDUCTION DELAY ST DEVIATION AND MODERATE T-WAVE ABNORMALITY, CONSIDER LATERAL ISCHEMIA DESK ANALYST Procedure Note Christel Mejia MD - 09/07/2024 [facility] [address] [place] [address] Test Date: 2024-09-01 Pat Name: JENNIFER CABALLERORINE Department: 105 Room: Gender: Female Cytologist: GIO : 1940 Requested By: CHRISTEL MEJIA Order Number: [id number] Nabor Mejia Measurements Intervals [place] Rate: 91 P: 44 CA: 185 QRS: -54 QRSD: 115 T: 123 QT: 368 QTc: 455 Interpretive Statements SINUS RHYTHM LEFT AXIS DEVIATION MODERATE INTRAVENTRICULAR CONDUCTION DELAY ST DEVIATION AND MODERATE T-WAVE ABNORMALITY, CONSIDER LATERAL ISCHEMIA DESK ANALYST Christel Mejia MD PROCEDURES-ORDERABLE NO CHARGE F inal Result [facility] * (ABNORMAL) COMPREHENSIVE METABOLIC PANEL (08/31/2024) SODIUM S/P/B 138 GLUCOSE 103 mg/dL AST 31 BUN 27 CREATININE S/P/B 1.23(A) 0.5 - 1.0 CALCIUM S/P/B 8.0 POTASSIUM S/P/B 3.8 CHLORIDE S/P/B 102 ALT 21 GFR ESTIMATE 42 Narrative Resulting Agency Comment [facility] Default History Genericprovider LABORATORY Final Result * CBC, MANUAL DIFF (08/31/2024) Pathologist [facility] WBC 7.4 HGB 10.8 HCT 35.8 PLT 231 Narrative Resulting Agency Comment [facility] Default History Genericprovider LABORATORY Final Result * LIPID PANEL (03/27/2021 10:35 AM CDT) CHOLESTEROL 201 MG/DL 03/27/2021 11:16 AM CDT [facility] Comment:BORDERLINE HIGH: 200 -239 TRIGLYCERIDES 175 MG/DL 03/27/2021 11:16 AM CDT [facility] Comment:150-199 BORDERLINE H IGH HDL 56 >49 MG/DL 03/27/2021 11:16 AM CDT [facility] LDL (CALCULATED) 110 MG/DL 03/27/20 11:16 AM CDT [facility] Comment:100-129 NEAR OR ABOV E OPTIMAL VLDL CALCULATION 35 MG/DL 03/27/20 11:16 AM CDT [facility] Comment:REFERENCE RANGE NOT ESTABLISHED CHOL/HDL RATIO 3.6 03/27/2021 11:16 AM CDT [facility] Comment:REFERENCE RANGE NOT ESTABLISHED LDL/HDL 2.0 03/27/2021 11:16 AM CDT [facility] Comment:REFERENCE RANGE NOT ESTABLISHED NON HDL CHOLESTEROL 145 MG/DL 03/27/2021 11:16 AM CDT [facility] Comment:REFERENCE RANGE NOT ESTABLISHED 03/27/2021 10:3 5 AM CDT us Jaida Yee APRN AUTOMATIC WHEEL LINE OPERATORTanishaC LABORATORY Final Result [facility] [address] [place] [address], [id number] from Last 3 Months or Most Recently Relevant to Health Maintenance Insurance [facility] MEDICAID [facility] MEDICAID Advance Directives Documents on File Type Date Recorded Patient Manager Of Housekeeping Expl anation Advance Directives and Living Will [...] 1:31 PM 11/29/2022 4:09 PM Care Teams Health Commissioner Relationship Specialty Start Date End Date Gino Meyer MD [address] [place] [address] PCP - General INTERNAL MEDICINE 06/11/17 Christel Mejia MD [address] [place] [address] EP Technology Lab Teacher CLINICAL CARDIAC ELECTROPHYSIOLOGY 06/12/23
--- OUTSIDE RECORDS SUMMARY | 2024-09-24 11:58 | XMS_ITS | Encounter Summary ---
Author Organization [facility] Address [facility] [place] [address] Care Team Providers Care Houseperson Name Role Phone Santos Fuentes MD Unavailable UnavailGino Mena MD Primary Care Provider [phone] Shana Adams NP Unavailable Unavailable Christel Lu MD Unavailable Encounter Details Date Type Department Care Team (Late Contact Info) Description 02/15/2021 Abstract [facility] [address] [place] [address] Santos Fuentes MD Social History Tobacco Use Types Packs/Day Years Used Date Smoking Tobacco: Never Smokeless Tobacco: Never Alcohol Use Standard Drinks/Week Comments No 0 (1 standard drink = 0.6 oz pur e alcohol) Comments Unknown Sex and Gender Information Value Date Recorded Sex Assigned at Female 09/01/2024 10:13 AM DRY TRANSFER WORKER Legal Sex Female 10:21 PM CDT [...] (Late Contact Info) Description 10/12/2024 3:45 PM DRY TRANSFER WORKER Office Visit [facility] [place] [phone] Stella Llanos MD [address] [place], [place] [address] 12/07/2024 1:15 AM CDT Allied Health/Nurse Visit [facility] ld [address] [place] [address] Christel Lu MD [address] [place] [address] documented as of this encounter [...] documented as of this encounter Care Teams Houseperson Relationship Specialty Start Date End Date Gino Meyer MD [address] [place] [phone] PCP - General INTERNAL MEDICINE 06/11/17 Santos Fuentes MD [place] Foreign Banknote Teller Trader CARDIOVASCULAR DISEASE 02/06/17 08/31/24 Shana Adams NP [address] [place] [address] Referring Physician Nurse Practitioner Family 02/27/23 Christel Lu MD [address] [place] [address] EP Foreign Banknote Teller Trader CLINICAL CARDIAC ELECTROPHYSIOLOGY 06/12/23 documented as of this encounter
--- OUTSIDE RECORDS SUMMARY | 2024-09-24 11:58 | XMS_ITS | CONTINUITY OF CARE DOCUMENT ---
Author Name angel, angel Address Unknown Organization [facility] Address [address] [place] [address] Phone [phone] Care Team Providers Care Deicer Tester Name Role Phone Nav Houser MD Unavailable KENNEDY SARMIENTO MD Unavailable KENNEDY SARMIENTO MD Unavailable PROBLEMS Condition Status Date Provider Notes S/P Dual Chamber AICD - Dion on Scientific active Nenita Mishra Cardiomyopathy-nonischemic active Nav carreno MD HTN essential completed - Nav carreno MD CHF active Nav Houser MD Renal disease, chronic active Nav Houser MD Shortness of breath active Nav Houser MD ENCOUNTERS Date Type Provider Location Encounter [...] Patient has n ever smoked. Smoking History: Edmnud ramos has never smoked. Nav Houser MD [...] Coverage type Pam aceves ID MARLENA JUAREZ Actimo insurance [employer] pany [id number] [place] Medicare [id number] TREATMENT PLAN Date Name Performer Cardiology printed [...] Nav Houser MD INTERROGATION REMOTE </90 D APPAREL PATTERN MAKER REVIEW completed AICD Interrogation, Remote (Prof) Nav [...] Nav Corrina MD INTERROGATION REMOTE </90 D APPAREL PATTERN MAKER REVIEW completed AICD Interrogation, Remote (Prof) Nav [...] Nav Corrina MD INTERROGATION REMOTE </90 D APPAREL PATTERN MAKER REVIEW completed AICD Interrogation, Remote (Prof) Nav [...] Nav Corrina MD INTERROGATION REMOTE </90 D APPAREL PATTERN MAKER REVIEW completed AICD Interrogation, Remote (Prof) Nav [...] Nav Corrina MD INTERROGATION REMOTE </90 D APPAREL PATTERN MAKER REVIEW completed AICD Interrogation, Remote (Prof) Nav [...] Nav Corrina MD INTERROGATION REMOTE </90 D APPAREL PATTERN MAKER REVIEW completed AICD Interrogation, Remote (Prof) Nav [...] Nav Corrina MD INTERROGATION REMOTE </90 D APPAREL PATTERN MAKER REVIEW completed AICD Interrogation, Remote (Prof) Nav [...] Nav Corrina MD INTERROGATION REMOTE </90 D APPAREL PATTERN MAKER REVIEW completed AICD Interrogation, Remote (Prof) Nav [...] Nav Corrina MD INTERROGATION REMOTE </90 D APPAREL PATTERN MAKER REVIEW completed AICD Interrogation, Remote (Prof) Nav [...]
--- OUTSIDE RECORDS SUMMARY | 2024-09-24 11:58 | XMS_ITS | Encounter Summary ---
Author Organization [facility] Address [facility] [place] [address] Care Team Providers Care Radiotelegraphist Name Role Phone Toy Warren MD Primary Care Provider [phone] Santos Fuentes MD Unavailable UnavailGino Mena MD Primary Care Provider [phone] Shana Adams NP Unavailable Unavailable Christel Lu MD Unavailable Encounter Details Date Type Department Care Team (Late st Contact Info) Description 01/31/2017 Abstract [facility] [address] [place] [address] Santos Fuentes MD Social History Tobacco Use Types Packs/Day Years Used Date Smoking Tobacco: Never Alcohol Use Standard Drinks/Week Comments No 0 (1 standard drink = 0.6 oz pur e alcohol) Comments Unknown Sex and Gender Information Value Date Recorded Sex Assigned at Female 09/01/2024 10:13 AM PAPER SUPERVISOR Legal Sex Female 10:21 PM CDT Gender Identity Not on file Sexual Orientation Not on file Occupation Industry Job Start Date Job End Date retired Not on file Not on file Not on file documented as of this encounter Plan of Treatment Upcoming Encounters Date Type Department Care Team (Late st Contact Info) Description 10/12/2024 3:45 PM PAPER SUPERVISOR Office Visit [facility] [place] [address] Stella Llanos MD [address] [place] [address] 12/07/2024 1:15 AM CDT Allied Health/Nurse Visit [facility] ld [address] [place] [address] Christel Lu MD [address] [place] [address] documented as of this encounter Visit Diagnoses Not on filedocumented in this encounter Additional Health Concerns Infection Onset Date Last Indicated Resolved Time COVID-19 Rule Out 04/24/2022 04/24/2022 04/24/2022 4:06 AM CDT documented as of this encounter Care Teams Radiotelegraphist Relationship Specialty Start Date End Date Toy Warren MD [address] [place] [address] PCP - General INTERNAL MEDICINE 02/06/17 06/10/17 Gino Meyer MD [address] [place] [address] PCP - General INTERNAL MEDICINE 06/11/17 Santos Fuentes MD [address] [place] [address] [place] Commissary Worker CARDIOVASCULAR DISEASE 02/06/17 08/31/24 Shana Adams NP [address] [place] [address] Referring Physician Nurse Practitioner [facility] 02/27/23 Christel Lu MD [address] [place] [address] EP Commissary Worker CLINICAL CARDIAC ELECTROPHYSIOLOGY 06/12/23 documented as of this encounter
--- OUTSIDE RECORDS SUMMARY | 2024-09-24 11:58 | XMS_ITS | Encounter Summary ---
Author Organization [facility] Address [facility]ly [facility], [address] [place] [address] Care Team Providers Care Candle Molder Name Role Phone Santos Fuentes MD Unavailable UnavailGino Mena MD Primary Care Provider [phone] Shana Adams NP Unavailable Unavailable Christel Lu MD Unavailable Encounter Details Date Type Department Care Team (Late st Contact Info) Description 12/06/2022 Hospital Follow-up Call [facility] [address] [place] [address] Stephie Arreola, RN Social History Tobacco Use Types Packs/Day [...] place to sleep or slept in a group home (including now)? Yes 11/29/2022 Comments No Sex and Gender Information Value Date Recorded Sex Assigned at Female 09/01/2024 10:13 AM LITERACY COORDINATOR Legal Sex Female 10:21 PM CDT Gender [...] Author Status No 11/29/2022 1:48 PM CDT Olivio, Helga A, R N Active * Do you have [...] Date Type Department Care Team (Late st [facility]) Description 10/12/2024 3:45 PM LITERACY COORDINATOR Office Visit [facility] [place] [address] Stella Llanos MD [address] [place] [address] 12/07/2024 1:15 AM CDT Allied Health/Nurse Visit [facility] [address] [place] [address] Christel Lu MD [address] [place] [address] documented as of this encounter Goals Goal Patient Goal Type Associated Problems Recent Progress Patient-Stated? Author Safety Patient/family will have appropriate support at home upon discharge Lifestyle No Merissa Santiago RN Safety Patient/family will have appropriate support at home upon discharge Lifestyle No Elina Lambert RN documented as of this encounter Visit Diagnoses Not on filedocumented in this encounter Care Teams Candle Molder Relationship Specialty Start Date End Date Gino Meyer MD [address] [place] [address] PCP - General INTERNAL MEDICINE 06/11/17 Santos Fuentes MD [place] Production Control Technologist CARDIOVASCULAR DISEASE 02/06/17 08/31/24 Shana Adams NP [address] [place] [address] Referring Physician Nurse Practitioner [facility] 02/27/23 Christel Lu MD [address] [place] [address] EP Production Control Technologist CLINICAL CARDIAC ELECTROPHYSIOLOGY 06/12/23 documented as of this encounter
[2024-09-24 12:28] LABS: Basophils Absolute Auto 0.04 K/mm3 (0.00-0.10); Basophils Percent Auto 0.4 % (0.0-1.0); Eosinophils Absolute Auto 0.08 K/mm3 (0.02-0.50); Eosinophils Percent Auto 0.8 % (1.0-6.0); Hematocrit 38.6 % (35.0-42.0); Hemoglobin 11.5 g/dL (11.7-13.8); Immature Granulocyte Absolute 0.04 K/mm3 (0.00-0.00); Immature Granulocyte Percent A 0.4 % (0.0-0.0); Lymphocytes Absolute Auto 0.55 K/mm3 (1.10-4.50); Lymphocytes Percent Auto 5.8 % (18.0-42.0); Mean Corpuscular HGB Conc 29.8 g/dL (32-36); Mean Corpuscular Hemoglobin 26.5 pg (27.0-31.0); Mean Corpuscular Volume 88.9 fL (78.0-102.0); Mean Platelet Volume 11.2 fl (9.2-11.8); Monocytes Absolute Auto 0.77 K/mm3 (0.10-0.90); Monocytes Percent Auto 8.1 % (2.0-11.0); Neutrophils Absolute Auto 8.05 K/mm3 (1.70-7.20); Neutrophils Percent Auto 84.5 % (50.0-70.0); Nucleated Red Blood Cells Absolute Auto 0.04 K/mm3 (0.00-0.00); Nucleated Red Blood Cells Perc 0.4 % (0-0.0); Platelet Count Result 216 K/mm3 (150-420); Red Blood Count 4.34 M/mm3 (4.20-5.40); Red Cell Distribution Width 17.4 % (11.6-14.4); White Blood Count 9.5 K/mm3 (4.8-10.8)
[2024-09-24 13:17] LABS: Alanine Aminotransferase 26 U/L (14-59); Albumin Level 3.1 g/dL (3.4-5.0); Alkaline Phosphatase 101 U/L (46-116); Anion Gap 14 mmol/L (4-12); Aspartate Amino Transferase 30 U/L (15-37); Bilirubin,Total 0.8 mg/dL (0.00-1.00); Blood Urea Nitrogen 39 mg/dL (7-18); Calcium 8.7 mg/dL (8.5-10.1); Carbon Dioxide 25 mmol/L (21-32); Chloride 99 mmol/L (98-108); Estimated Glomerular Filt Rate 27; Glucose 132 mg/dL (70-99); NT Pro B Type Natriuretic Pept 20562 pg/mL (0-450); Osmolality Calculated 297 mOsm/kg (285-295); Potassium 4.6 mmol/L (3.5-5.1); Sodium 138 mmol/L (136-145); Total Protein 6.4 g/dL (6.4-8.2)
[2024-09-24 13:25] LABS: Digoxin 2.6 ng/mL (0.9-2.0)
== END 2024-09-24 11:48 | disposition home or self-care (01) ==
LOC: CHSLAB 11:55
PROVIDERS: PCP Internal Medicine
DX: I50.9 Heart failure, unspecified (principal); R60.9 Edema, unspecified
CPT/HCPCS: 36415; 80053; 80162; 83880; 85025

== ENCOUNTER 2024-09-30 10:03 | Outpatient (CLI) | payer MEDICARE, SELFPAY ==
--- OUTSIDE RECORDS SUMMARY | 2024-09-30 11:03 | XMS_ITS | Encounter Summary ---
Author Organization [facility] Address [facility] [place] [address] Care Team Providers Care Computer Typesetter Name Role Phone Santos Fuentes MD Unavailable UnavailGino Mena MD Primary Care Provider [phone] Shana Adams NP Unavailable Unavailable Christel Lu MD Unavailable Encounter Details Date Type Department Care Team (Late st Contact Info) Description 12/06/2022 Hospital Follow-up Call [facility] [address] [place] [address] Stephie Arreola, RN Social History [...] place to sleep or slept in a penitentiary (including now)? Yes 11/29/2022 Comments No Sex and Gender Information Value Date Recorded Sex Assigned at Female 09/01/2024 10:13 AM EPIC RADIANT ANALYST Legal Sex Female 10:21 PM CDT [...] st Contact Info) Description 10/12/2024 3:45 PM EPIC RADIANT ANALYST Office Visit [facility] [place] [address] Stella Llanos MD [address] [place] [address] 12/07/2024 1:15 AM CDT Allied Health/Nurse Visit [facility] ld [address] [place] [address] Christel Lu MD [address] [place] [address] 322- 12/21/2024 2:30 PM CDT Office Visit [facility] ld [address] [place] [address] Maciel Wang PATanishaC [address] [place] [address] 887- 12/21/2024 2:30 PM CDT Allied Health/Nurse Visit [facility] ld [address] [place] [address] Christel Lu MD [address] [place] [address] documented as of this encounter Goals Goal Patient Goal Type Associated Problems Recent Progress Patient-Stated? Author Safety Patient/family will have appropriate support at home upon discharge Lifestyle No Merissa Santiago, RN Safety Patient/family will have appropriate support at home upon discharge Lifestyle No Elina Lambert, RN documented as of this encounter Visit Diagnoses Not on filedocumented in this encounter Care Teams Computer Typesetter Relationship Specialty Start Date End Date Gino Meyer MD [address] [place] [address] PCP - General INTERNAL MEDICINE 06/11/17 Santos Fuentes MD [employer] Teacher CARDIOVASCULAR DISEASE 02/06/17 08/31/24 Shana Adams NP [address] [place] [address] Referring Physician Nurse Practitioner Family 02/27/23 Christel Lu MD [address] [place] [address] EP Business Computers Teacher CLINICAL CARDIAC ELECTROPHYSIOLOGY 06/12/23 documented as of this encounter
--- OUTSIDE RECORDS SUMMARY | 2024-09-30 11:03 | XMS_ITS | Clinical Summary ---
Author Organization [facility] Address [address] [place] [address] Care Team Providers Care Calibration Specialist Name Role Phone Gino Meyer MD Primary Care Provider [phone] Christel Mejia MD Unavailable Allergies No known [...] daily. In evening 04/18/20 22 Active multi vitamin/mineral s (THERA-M ENHANCED) tablet Take 1 tablet by mouth daily. Active spironolactone (ALDACTONE) 25 MG tablet Take 0.5 tablets (12.5 mg total) by mouth daily. 30 tablet 5 04/28/20 22 Active Additional Information Patient taking differently: 25 mgOral Daily, Reported on 09/08/2024 anastrozole (ARIMIDEX) 1 MG tablet Take 1 tablet by mouth daily. 11/24/19 23 Active sacubitril-vals lisa (ENTRESTO) 24-26 MG tablet Take 1 tablet by mouth 2 (two) times daily. Active Calcium-Magnesi um-Vitamin D (CALCIUM 1200+D3 OR) Take 1 tablet by mouth daily. Active albuterol sulfate HFA 108 (90 Base) MCG/ACT inhaler Inhale 2 puffs into the lungs every 4 (four) hours as needed for Wheezing or Shortness of breath. 8 g 12/05/19 23 Active empagliflozin (JARDIANCE) 10 MG tablet Take 1 tablet (10 mg total) by mouth daily. 30 tablet 12/06/19 23 Active ipratropium-alb uterol (COMBIVENT RESPIMAT) 20-100 MCG/ACT inhaler Inhale 1 puff into the lungs 4 (four) times daily. Please provide assembled. 4 g 12/05/19 23 Active Additional Information Patient taking differently:1 puff InhalationBID, Please provide assembled., Reported on 09/08/2024 atorvastatin (LIPITOR) 10 MG tablet TAKE ONE TABLET BY MOUTH NIGHTLY AT BEDTIME 30 tablet 11 12/31/19 23 Active digoxin (LANOXIN) 0.125 MG tablet Take 1 tablet (0.125 mg total) by mouth every other day. 05/30/20 23 Active apixaban (ELIQUIS) 5 MG tabletIndicatio ns:Atrial fibrillation (CMS/HCC HHS/HCC) Take 1 tablet (5 mg total) by mouth 2 (two) times daily. 60 tablet 2 08/10/20 24 Active HYDROcodone-elodia taminophen (NORCO) 5-325 MG tablet as needed. 07/20/20 [...] the morning. 30 tablet 09/22/19 25 Active carvedilol (COREG) 12.5 MG tabletIndicatio ns:Atrial fibrillation (CMS/HCC HHS/HCC) TAKE ONE TABLET BY MOUTH TWICE A DAY 60 tablet 3 09/30/19 25 Active furosemide (LASIX) 40 MG tablet Take 2 tablets (80 mg total) by mouth daily. 60 tablet 12/05/19 23 2024 Discontinued(R eorder) traMADol (ULTRAM) 50 MG tabletIndicatio ns:Acute Pain < 7 Day Supply Take 1 tablet (50 mg total) by mouth every 4 (four) hours as needed for Pain. Indications: Acute Pain < 7 Day Supply 28 tablet 07/24/20 23 2024 Discontinued(D iscontinued by another clinician) carvedilol (COREG) 12.5 MG tabletIndicatio ns:Atrial fibrillation ([facility]) Take 1 tablet (12.5 mg total) by mouth 2 (two) times daily. 60 tablet 08/11/20 24 2024 Discontinued metOLazone (ZAROXOLYN) 2.5 MG tablet Take 1 tablet (2.5 mg total) by mouth daily. Pt should take metolazone 30 minutes before taking Furosamide in the morning. 30 tablet 09/22/19 25 2024 Discontinued(R eorder) Active Problems Problem Noted Date Diagnosed Date Breast cancer ([facility]) 07/23/2023 S/P coronary artery stent placement 03/18/2021 Mixed hyperlipidemia 07/10/2017 Stage 2 chronic kidney disease 06/14/2014 Non-ischemic cardiomyopathy ([facility]) AICD (automatic cardioverter/defibrillator) pres ent Hypertension Coronary artery disease Systolic heart failure ([facility]) Resolved Problems Problem Noted Date Diagnosed Date Resolved Date Hypotension due to hypovolemia 04/25/2022 06/13/2023 Obesity (BMI 30-39.9) 07/10/20172021 Encounters Date Type Department Care Team Description 09/30/2024 Telephone [facility] [address] [place] [address] Christel Mejia MD Appointment Request 09/24/2024 Telephone [facility] [address] [place] [address] Jaida Yee APRN, CATERING SOUS CHEF-C Follow Up Call 09/24/2024 Orders Only [facility] [address] [place] [address] Heidy Landres LPN 09/22/2024 Abstract [facility] [address] [place] [address] Jaida Yee APRN, CATERING SOUS CHEF-C 09/22/2024 Telephone [facility] [address] [place] [address] Jaida Yee APRN, CATERING SOUS CHEF-C Other 09/16/2024 10:39 AM HAMMERSMITH HELPER - 09/16/2024 11:59 PM HAMMERSMITH HELPER Hospital Encounter [facility] [address] [place] [address] Barbi Day, GANG KNIFE FISH CHOPPER Discharge Disposition: Home or Self Care (Routine Discharge) 09/16/2024 Travel 09/16/2024 Telephone [facility] [address] [place] [address] Jaida Yee APRN, CATERING SOUS CHEF-C Question 09/10/2024 Telephone [facility] [address] [place] [address] Jaida Yee APRN, CATERING SOUS CHEF-C Follow Up Call 09/10/2024 Abstract [facility] [address] [place] [address] Abstract, Doc Pccl 09/08/2024 11:00 AM HAMMERSMITH HELPER Office Visit [facility] [address] [place] [address] Jaida Yee APRN, CATERING SOUS CHEF-C Follow Up; CHF 09/08/2024 Telephone [facility] [address] [place] [address] Stelal Llanos MD Appointment Request 09/08/2024 Telephone [facility] [place] [address] [place] [address] Jaida Yee APRN, CATERING SOUS CHEF-C Referral 09/08/2024 Travel 09/01/2024 11:15 AM HAMMERSMITH HELPER Allied Health/Nurse Visit [facility] [address] [place] [address] Christel Mejia MD 09/01/2024 11:15 AM HAMMERSMITH HELPER Office Visit [facility] [address] [place] [address] Christel Mejia MD Follow Up; Cardiac Device Management; Atrial Fibrillation 09/01/2024 Orders Only [facility] [address] [place] [address] Jaida Yee APRN, CATERING SOUS CHEF-C 09/01/2024 Telephone [facility] [address] [place] [address] Jaida Yee APRN, CATERING SOUS CHEF-C Appointment Request 09/01/2024 Travel 08/31/2024 Scan [facility] [address] [place] [address] Scanned, Doc Pccl 08/31/2024 Orders Only [facility] [address] [place] [address] Christel Mejia MD 08/31/2024 Telephone [facility] [address] [place] [address] Christel Mejia MD Record Request 08/28/2024 Scan [facility] [address] [place] [address] Scanned, Doc Pccl 08/28/2024 Telephone [facility] [address] [place] [address] Christel Mejia MD Record Request 08/25/2024 Telephone [facility] [address] [place] [address] Christel Mejia MD Reschedule 08/20/2024 Orders Only [facility] [address] [place] [address] Christel Mejia MD 08/10/2024 [facility] [address] [place] [address] Christel Mejia MD Appointment Request from Last 3 Months Immunizations Name Administration [...] place to sleep or slept in a care home (including now)? Yes 11/29/2022 Comments No Sex and Gender Information Value Date Recorded Sex Assigned at Female 09/01/2024 10:13 AM HAMMERSMITH HELPER Legal Sex Female 10:21 PM CDT Gender Identity Not on file Sexual Orientation Not on file Occupation Industry Job Start Date Job End Date retired Not on file Not on file Not on file Last Filed Vital Signs Vital Sign Reading Time Taken Comments Blood Pressure 110/80 09/08/2024 10:51 AM HAMMERSMITH HELPER Pulse 112 09/08/2024 10:51 AM HAMMERSMITH HELPER Temperature 36.8 C (98.2 F) 08/30/2023 12:39 PM HAMMERSMITH HELPER Respiratory Rate 16 09/08/2024 10:51 AM HAMMERSMITH HELPER Oxygen Saturation 94% 09/08/2024 10:51 AM HAMMERSMITH HELPER Inhaled Oxygen Concentration - - Weight 87.5 kg (193 lb) 09/08/2024 10:51 AM HAMMERSMITH HELPER Height 152.4 cm (5') 09/08/2024 10:51 AM HAMMERSMITH HELPER Body Mass Index 37.69 09/08/2024 10:51 AM HAMMERSMITH HELPER Plan of Treatment Upcoming Encounters Date Type Department Care Team (Late st Contact Info) Description 10/12/2024 3:45 PM HAMMERSMITH HELPER Office Visit [facility] [place] [address] Stella Llanos MD [address] [place] [address] 12/07/2024 1:15 AM CDT Allied Health/Nurse [facility] [address] [place] [address] Christel Mejia MD [address] [place] [address] 12/21/2024 2:30 PM CDT [facility] [address] [place] [address] Maciel Wang, PATanishaC [address] [place] [address] 12/21/2024 2:30 PM CDT Allied Health/Nurse [facility] [address] [place] [address] Christel Mejia MD [address] [place] [address] Health Maintenance Due Date Last Done Comments [...] Lambert RN Medical Devices Implanted Type Area Shooter Helper Device Identifier Shelf Expiration Date Model / Serial / Lot [employer] Vigilant El Dr-08/30/2023 Implanted:Qty: 1 on 08/30/2023 by Christel Mejia MD ICD [employer] 12/28/2024 [id number] / [id number] / Description:DX: NIC MRI Conditional under following conditions: Static magnetic field of 1.5 T or 3 T, Max spatial gradient field of 5000 Gauss/cm or less, Max slew rate 200 T/m/s , WHOLE BODY TERESO OF 2 W/KG OR LESS, HEAD TERESO 3.2 W/KG OR LESS , Supine or Prone only [employer] Ra-08/30/2023 Implanted:Qty: 1 on 08/30/2023 by Christel Mejia MD Lead Implant [employer] 01/04/2025 [id number] / [id number] / [employer] Rv-08/30/2023 Implanted:Qty: 1 on 08/30/2023 by Christel Mejia MD Lead Implant [employer] 04/08/2024 [id number] / [id number] / Cv Synergy Xd Jose-Lad- 021 Implanted:02/18 by Russell Bentley MD (Quantity not on file) Stent Coronary LAD [employer] 10/05/2022 [id number] / / [id number] Cv Synergy Xd Jose-[place]-2020 Implanted:02/18 by Russell Bentley MD (Quantity not on file) Stent Coronary LAD [employer] 11/17/2022 [id number] / / [id number] Procedures Procedure Name Priority Date/Time Associated Diagnosis Comments BASIC METABOLIC PANEL Routine 09/24/2024 roasterman use of drug BASIC METABOLIC PANEL Routine 09/18/2024 roasterman use of drug BASIC METABOLIC PANEL Routine 09/09/2024 ELECTROCARDIOGRAM (NON MIDMARK ACQUIRED) Routine 09/01/2024 10:27 AM HAMMERSMITH HELPER Atrial fibrillation, unspecified type (CMS/HCC HHS/HCC) AICD (automatic cardioverter/defibri llator) present COMPREHENSIVE METABOLIC PANEL Routine 08/31/2024 CBC, MANUAL DIFF Routine 08/31/2024 LIPID PANEL Routine 03/27/2021 10:35 AM CDT roasterman use of drug Hyperlipidemia, unspecified hyperlipidemia type from Last 3 Months or Most Recently Relevant to Health Maintenance Results * (ABNORMAL) BASIC METABOLIC PANEL (09/24/2024) Only the most recent of3 resultswithin the time period is included. SODIUM S/P/B 138 136 - 145 POTASSIUM S/P/B 4.6 3.5 - 5.1 CO2 25 21 - 32 CHLORIDE S/P/B 99 98 - 108 GLUCOSE 132(A) 70 - 99 mg/dL CALCIUM S/P/B 8.7 8.5 - 10.1 BUN 39(A) 7 - 18 CREATININE S/P/B 1.79(A) 0.5 - 1.0 GFR ESTIMATE 27 09/24/2024 us Jaida Yee APRN, CATERING SOUS CHEF-C LABORATORY Final Result * ELECTROCARDIOGRAM (09/01/2024 10:27 AM HAMMERSMITH HELPER) 09/01/2024 10:2 7 AM HAMMERSMITH HELPER Narrative [facility] - 09/07/2024 7:54 AM HAMMERSMITH HELPER [facility] [place] [address] [place] [address] Test Date: 2024-09-01 Pat Name: JENNIFER MOREAU Department: 105 Room: Gender: Female Case Planner: GIO : 1940 Requested By: CHRISTEL MEJIA Order Number: [id number] Reading MD: Christel Mejia Measurements Intervals [place] Rate: 91 P: 44 CA: 185 QRS: -54 QRSD: 115 T: 123 QT: 368 QTc: 455 Interpretive Statements SINUS RHYTHM LEFT AXIS DEVIATION MODERATE INTRAVENTRICULAR CONDUCTION DELAY ST DEVIATION AND MODERATE T-WAVE ABNORMALITY, CONSIDER LATERAL ISCHEMIA ERSMITH HELPER Procedure Note Christel Mejia MD - 09/07/2024 [facility] [place] [address] [place] [address] Test Date: 2024-09-01 Pat Name: JENNIFER MOREAU Department: 105 Room: Gender: Female Case Planner: GIO : 1940 Requested By: CHRISTEL MEJIA Order Number: [id number] Reading MD: Christel Mejia Measurements Intervals [place] Rate: 91 P: 44 CA: 185 QRS: -54 QRSD: 115 T: 123 QT: 368 QTc: 455 Interpretive Statements SINUS RHYTHM LEFT AXIS DEVIATION MODERATE INTRAVENTRICULAR CONDUCTION DELAY ST DEVIATION AND MODERATE T-WAVE ABNORMALITY, CONSIDER LATERAL ISCHEMIA ERSMITH HELPER Christel Mejia MD PROCEDURES-ORDERABLE NO CHARGE F inal Result [facility] * (ABNORMAL) COMPREHENSIVE METABOLIC PANEL (08/31/2024) SODIUM S/P/B 138 GLUCOSE 103 mg/dL AST 31 BUN 27 CREATININE S/P/B 1.23(A) 0.5 - 1.0 CALCIUM S/P/B 8.0 POTASSIUM S/P/B 3.8 CHLORIDE S/P/B 102 ALT 21 GFR ESTIMATE 42 Narrative Resulting Agency Comment [facility] [place] Default History Genericprovider LABORATORY Final Result * CBC, MANUAL DIFF (08/31/2024) WBC 7.4 HGB 10.8 HCT 35.8 PLT 231 Narrative Resulting Agency Comment [facility] us Default History Genericprovider LABORATORY Final Result * LIPID PANEL (03/27/2021 10:35 AM CDT) CHOLESTEROL 201 MG/DL 03/27/2021 11:16 AM CDT [facility] Comment:BORDERLINE HIGH: 200 -239 TRIGLYCERIDES 175 MG/DL 03/27/2021 11:16 AM CDT [facility] Comment:150-199 BORDERLINE H IGH HDL 56 >49 MG/DL 03/27/2021 11:16 AM CDT [facility] LDL (CALCULATED) 110 MG/DL 03/27/20 11:16 AM CDT [facility] Comment:100-129 NEAR OR ABOV E OPTIMAL VLDL CALCULATION 35 MG/DL 03/27/20 11:16 AM CDT [facility] Comment:REFERENCE RANGE NOT ESTABLISHED CHOL/HDL RATIO 3.6 03/27/2021 11:16 AM CDT [facility] Comment:REFERENCE RANGE NOT ESTABLISHED LDL/HDL 2.0 03/27/2021 11:16 AM CDT [facility] Comment:REFERENCE RANGE NOT ESTABLISHED NON HDL CHOLESTEROL 145 MG/DL 03/27/2021 11:16 AM CDT [facility] Comment:REFERENCE RANGE NOT ESTABLISHED 03/27/2021 10:3 5 AM CDT us PRINCE Brand APRNC LABORATORY Final Result [facility] [address] [place] [address], [phone] from Last 3 Months or Most Recently Relevant to Health Maintenance Insurance [facility] MEDICAID [facility] MEDICAID Advance Directives Documents on File Type Date Recorded Patient Safety And Health Consultant Expl anation Advance Directives and Living Will 04/21/2021 2:05 PM ARTEMProsperAdrianaAmari Karishma Lizzeth Advance Directives and Living Will 04/21/2021 2:05 PM POLST Advance Directives and Living Will 06/21/2017 9:24 [...] 1:31 PM 11/29/2022 4:09 PM Care Teams Calibration Specialist Relationship Specialty Start Date End Date Gino Meyer MD [address] [place] [address] PCP - General INTERNAL MEDICINE 06/11/17 Christel Mejia MD [address] [place] [address] EP Web Systems Developer CLINICAL CARDIAC ELECTROPHYSIOLOGY 06/12/23
--- OUTSIDE RECORDS SUMMARY | 2024-09-30 11:03 | XMS_ITS | CONTINUITY OF CARE DOCUMENT ---
Author Name angel, angel Address Unknown Organization [facility] Address [address] [place] [address] Phone [phone] Care Team Providers Care Upper Inspector Name Role Phone Nav Houser MD Unavailable KENNEDY SARMIENTO MD Unavailable [phone] KENNEDY SARMIENTO MD Unavailable PROBLEMS Condition Status Date Provider Notes S/P Dual Chamber AICD - [employer] active Nenita iMshra Shortness of breath active Nav Houser MD [...] Houser MD blood pressure, systolic 122 mm[Hg] Jlius Houser MD pulse rate 86 /min Nav [...] Coverage type Pam aceves ID MARLENA JUAREZ Jimdo insurance [employer] pany [id number] [place] Medicare [id number] TREATMENT PLAN Date Name Performer Cardiology printed [...] Nav Houser MD INTERROGATION REMOTE </90 D COACH CLEANER REVIEW completed AICD Interrogation, Remote (Prof) Nav [...] Nav Corrina MD INTERROGATION REMOTE </90 D COACH CLEANER REVIEW completed AICD Interrogation, Remote (Prof) Nav [...] Nav Corrina MD INTERROGATION REMOTE </90 D COACH CLEANER REVIEW completed AICD Interrogation, Remote (Prof) Nav [...] Nav Corrina MD INTERROGATION REMOTE </90 D COACH CLEANER REVIEW completed AICD Interrogation, Remote (Prof) Nav [...] Nav Corrina MD INTERROGATION REMOTE </90 D COACH CLEANER REVIEW completed AICD Interrogation, Remote (Prof) Nav [...] Nav Corrina MD INTERROGATION REMOTE </90 D COACH CLEANER REVIEW completed AICD Interrogation, Remote (Prof) Nav [...] Nav Corrina MD INTERROGATION REMOTE </90 D COACH CLEANER REVIEW completed AICD Interrogation, Remote (Prof) Nav [...] Nav Corrina MD INTERROGATION REMOTE </90 D COACH CLEANER REVIEW completed AICD Interrogation, Remote (Prof) Nav [...] Nav Corrina MD INTERROGATION REMOTE </90 D COACH CLEANER REVIEW completed AICD Interrogation, Remote (Prof) Nav [...]
--- OUTSIDE RECORDS SUMMARY | 2024-09-30 11:03 | XMS_ITS | Encounter Summary ---
Author Organization [facility] Address [facility] [place] [address] Care Team Providers Care Mattress Stuffer Name Role Phone Santos Fuentes MD Unavailable UnavailGino Mena MD Primary Care Provider [phone] Shana Adams NP Unavailable Unavailable Christel Lu MD Unavailable Encounter Details Date Type Department Care Team (Late Contact Info) Description 02/15/2021 Abstract [facility] [address] [place] [address] Santos Fuentes MD Social History Tobacco Use Types Packs/Day Years Used Date Smoking Tobacco: Never Smokeless Tobacco: Never Alcohol Use Standard Drinks/Week Comments No 0 (1 standard drink = 0.6 oz pur e alcohol) Comments Unknown Sex and Gender Information Value Date Recorded Sex Assigned at Female 09/01/2024 10:13 AM FLOORPERSON Legal Sex Female 10:21 PM CDT Gender [...] (Late Contact Info) Description 10/12/2024 3:45 PM FLOORPERSON Office Visit [facility] [place] [address] Stella Llanos MD [address] [place], [place] [address] 12/07/2024 1:15 AM CDT Allied Health/Nurse Visit [facility] ld [address] [place] [address] Christel Lu MD [address] [place] [address] 12/21/2024 2:30 PM CDT Office Visit [facility] [address] [place] [address] Maciel Wang, PATanishaC [address] [place] [address] 12/21/2024 2:30 PM CDT Allied Health/Nurse Visit [facility] [address] [place] [address] Christel Lu MD [address] [place] [address] documented as of this encounter [...] documented as of this encounter Care Teams Mattress Stuffer Relationship Specialty Start Date End Date Gino Meyer MD [address] [place] [address] PCP - General INTERNAL MEDICINE 06/11/17 Santos Fuentes MD [place] Dog Handler CARDIOVASCULAR DISEASE 02/06/17 08/31/24 Shana Adams NP [address] [place] [address] Referring Physician Nurse Practitioner Family 02/27/23 Christel Lu MD [address] [place] [address] EP Dog Handler CLINICAL CARDIAC ELECTROPHYSIOLOGY 06/12/23 documented as of this encounter
--- OUTSIDE RECORDS SUMMARY | 2024-09-30 11:03 | XMS_ITS | Encounter Summary ---
Author Organization [facility] Address Formerly [facility], [facility] [place] [address] Care Team Providers Care Community Service Worker Name Role Phone Toy Warren MD Primary Care Provider [phone] Santos Fuentes MD Unavailable UnavailGino Mena MD Primary Care Provider [phone] Shana Adams NP Unavailable Unavailable Christel Lu MD Unavailable Encounter Details Date Type Department Care Team (Late st Contact Info) Description 01/31/2017 Abstract [facility] [address] [place] [address] Santos Fuentes MD Social History Tobacco Use Types Packs/Day Years Used Date Smoking Tobacco: Never Alcohol Use Standard Drinks/Week Comments No 0 (1 standard drink = 0.6 oz pur e alcohol) Comments Unknown Sex and Gender Information Value Date Recorded Sex Assigned at Female 09/01/2024 10:13 AM AGING DEPARTMENT SUPERVISOR Legal Sex Female 10:21 PM CDT Gender Identity Not on file Sexual Orientation Not on file Occupation Industry Job Start Date Job End Date retired Not on file Not on file Not on file documented as of this encounter Plan of Treatment Upcoming Encounters Date Type Department Care Team (Late st Contact Info) Description 10/12/2024 3:45 PM AGING DEPARTMENT SUPERVISOR Office Visit [facility] [place] [address] Stella Llanos MD [address] [place] [address] 12/07/2024 1:15 AM CDT Allied Health/[facility] [address] [place] [address] Christel Lu MD [address] [place] [address] 12/21/2024 2:30 PM CDT Office [facility] [address] [place] [address] Maciel Wang PATanishaC [address] [place] [address] 12/21/2024 2:30 PM CDT Allied Health/Nurse Visit [facility] [address] [place] [address] Christel Lu MD [address] [place] [address] documented as of this encounter Visit Diagnoses Not on filedocumented in this encounter Additional Health Concerns Infection Onset Date Last Indicated Resolved Time COVID-19 Rule Out 04/24/2022 04/24/2022 04/24/2022 4:06 AM CDT documented as of this encounter Care Teams Community Service Worker Relationship Specialty Start Date End Date Toy Warren MD [address] [place], [place] [phone] PCP - General INTERNAL MEDICINE 02/06/17 06/10/17 Gino Meyer MD [address] [place] [address] PCP - General INTERNAL MEDICINE 06/11/17 Santos Fuentes MD [address] [place] [address] [place] Furniture Inspector CARDIOVASCULAR DISEASE 02/06/17 08/31/24 Shana Adams NP [address] [place] [address] Referring Physician Nurse Practitioner [facility] 02/27/23 Christel Lu MD [address] [place] [address] EP Furniture Inspector CLINICAL CARDIAC ELECTROPHYSIOLOGY 06/12/23 documented as of this encounter
--- OUTSIDE RECORDS SUMMARY | 2024-09-30 11:03 | XMS_ITS | Encounter Summary ---
Author Organization [facility] Address [facility] [place] [address] Care Team Providers Care Ui Designer Name Role Phone Gino Meyer MD Primary Care Provider [phone] Christel Lu MD Unavailable Reason for Visit * Reason Onset Date Comments Appointment Request 09/30/2024 Encounter Details Date Type Department Care Team ([facility] st Contact Info) Description 09/30/2024 Telephone [facility] [address] [place] [address] Christel Lu MD [address] [place] [address] Appointment Request Social History Tobacco Use Types Packs/Day Years [...] place to sleep or slept in a snf (including now)? Yes 11/29/2022 Comments No Sex and Gender Information Value Date Recorded Sex Assigned at Female 09/01/2024 10:13 AM INSURANCE ADVISER Legal Sex Female 10:21 PM CDT Gender [...] documented in this encounter Progress Notes * Lala Rich - 09/30/2024 10:02 AM CST Scheduled 3-4 mo f/u and in clinic dvc with CEM on 12/21/24 at 2:30 pm. Reminder letter mailed. RANCE ADVISER documented in this encounter Plan of Treatment Upcoming Encounters Date Type Department Care Team (Late st Contact Info) Description 10/12/2024 3:45 PM INSURANCE ADVISER Office [facility] [place] [address] Stella Llanos MD [address] [place] [address] 12/07/2024 1:15 AM CDT Allied Health/Nurse Visit [facility] [address] [place] [address] Christel Lu MD [address] [place] [address] 12/21/2024 2:30 PM CDT Office Visit [facility] ld [address] [place] [address] Maciel Wang PA-C [address] [place] [address] 12/21/2024 2:30 PM CDT Allied Health/Nurse Visit [facility] [address] [place] [address] Christel Lu MD [address] [place] [address] documented as of this encounter Goals Goal Patient Goal Type Associated Problems Recent Progress Patient-Stated? Author Safety Patient/family will have appropriate support at home upon discharge Lifestyle No Merissa Santiago RN Safety Patient/family will have appropriate support at home upon discharge Lifestyle No Elina Lambert, RN documented as of this encounter Visit Diagnoses Not on filedocumented in this encounter Care Teams Ui Designer Relationship Specialty Start Date End Date Gino Meyer MD [address] [place] [address] PCP - General INTERNAL MEDICINE 06/11/17 Christel Lu MD [address] [place] [address] EP Pastry Sous Chef CLINICAL CARDIAC ELECTROPHYSIOLOGY 06/12/23 documented as of this encounter
--- OUTSIDE RECORDS SUMMARY | 2024-09-30 11:03 | XMS_ITS | Encounter Summary ---
Author Organization [facility] Address [facility] [place] [address] Care Team Providers Care Advertising Campaign Manager Name Role Phone Toy Warren MD Primary Care Provider [phone] Santos Fuentes MD Unavailable UnavailGino Mena MD Primary Care Provider [phone] Shana Adams NP Unavailable Unavailable Christel Lu MD Unavailable Encounter Details Date Type Department Care Team (Late st Contact Info) Description 03/06/2017 Abstract [facility] [address] [place] [address] Santos Fuentes MD Social History Tobacco Use Types Packs/Day Years Used Date Smoking Tobacco: Never Alcohol Use Standard Drinks/Week Comments No 0 (1 standard drink = 0.6 oz pur e alcohol) Comments Unknown Sex and Gender Information Value Date Recorded Sex Assigned at Female 09/01/2024 10:13 AM FLOOR LAYER APPRENTICE Legal Sex Female 10:21 PM CDT Gender Identity Not on file Sexual Orientation Not on file Occupation Industry Job Start Date Job End Date retired Not on file Not on file Not on file documented as of this encounter Plan of Treatment Upcoming Encounters Date Type Department Care Team (Late st Contact Info) Description 10/12/2024 3:45 PM FLOOR LAYER APPRENTICE Office Visit [facility] [place] [address] Stella Llanos MD [address] [place] [address] 12/07/2024 1:15 AM CDT Allied Health/[facility] [address] [place] [address] Christel Lu MD [address] [place] [address] 12/21/2024 2:30 PM CDT Office Visit [facility] [address] [place] [address] Maciel Wang PATanishaC [address] [place] [address] 12/21/2024 2:30 PM CDT Allied Health/Nurse Visit [facility] [address] [place] [address] Christel Lu MD [address] [place] [address] documented as of this encounter Visit Diagnoses Not on filedocumented in this encounter Additional Health Concerns Infection Onset Date Last Indicated Resolved Time COVID-19 Rule Out 04/24/2022 04/24/2022 04/24/2022 4:06 AM CDT documented as of this encounter Care Teams Advertising Campaign Manager Relationship Specialty Start Date End Date Toy Warren MD [address] [place], [place] [phone] PCP - General INTERNAL MEDICINE 02/06/17 06/10/17 Gino Meyer MD [address] [place] [address] PCP - General INTERNAL MEDICINE 06/11/17 Santos Fuentes MD [address] [place] [address] [place] Video Recorder Mechanic CARDIOVASCULAR DISEASE 02/06/17 08/31/24 Shana Adams NP [address] [place] [address] Referring Physician Nurse Practitioner [facility] 02/27/23 Christel Lu MD [address] [place] [address] EP Video Recorder Mechanic CLINICAL CARDIAC ELECTROPHYSIOLOGY 06/12/23 documented as of this encounter
[2024-09-30 11:11] LABS: Alanine Aminotransferase 22 U/L (14-59); Albumin Level 3.1 g/dL (3.4-5.0); Alkaline Phosphatase 102 U/L (46-116); Anion Gap 11 mmol/L (4-12); Aspartate Amino Transferase 26 U/L (15-37); Bilirubin,Total 1.2 mg/dL (0.00-1.00); Blood Urea Nitrogen 35 mg/dL (7-18); Calcium 8.6 mg/dL (8.5-10.1); Carbon Dioxide 35 mmol/L (21-32); Chloride 92 mmol/L (98-108); Digoxin 0.5 ng/mL (0.9-2.0); Estimated Glomerular Filt Rate 26; Glucose 166 mg/dL (70-99); NT Pro B Type Natriuretic Pept 5218 pg/mL (0-450); Osmolality Calculated 298 mOsm/kg (285-295); Potassium 3.1 mmol/L (3.5-5.1); Sodium 138 mmol/L (136-145); Total Protein 6.3 g/dL (6.4-8.2)
== END 2024-09-30 10:04 | disposition home or self-care (01) ==
LOC: CHSLAB 10:05
PROVIDERS: PCP Internal Medicine; Visit Provider Internal Medicine
DX: I50.9 Heart failure, unspecified (principal); I25.10 Atherosclerotic heart disease of native coronary artery without angina pectoris
CPT/HCPCS: 36415; 80053; 80162; 83880

== ENCOUNTER 2024-10-01 19:20 | Emergency (ER) | payer MEDICARE, SELFPAY ==
--- NOTE | ~2024-10-01 | CT_ITS ---
History: Fall PROCEDURE: CT cervical spine without intravenous contrast. COMPARISON: None TECHNIQUE: Multiple contiguous axial images of the cervical spine were performed without the administration of i ntravenous contrast. DLP: 324 mGy-cm FINDINGS: Straightening of the normal curvature of the cervical spine is identified, likely muscular in origin. Significant degenerative disease is identified with osteophyte formation, disc space narrowing, endpl ate changes and ankylosis. No acute fracture is appreciated. Left apical scarring No soft tissue abnormality is present. The airway is patent Impression: Straightening of the normal curvature of the cervical spine, likely muscular in origin. Significant degenerative disease, without acute fracture. Reviewed, dictated and finalized at location A. ELLANT [employer]GE ZONE ASSEMBLER Impression: Straightening of the normal curvature of the cervical spine, likely muscular in origin. Significant degenerative disease, without acute fracture.
--- NOTE | ~2024-10-01 | CT_ITS ---
History: Fall PROCEDURE: CT head without contrast. COMPARISON: None TECHNIQUE: Axial imaging of the head performed from the skull base to the vertex without IV contrast. Sagittal a nd coronal reformations obtained. DLP: 605 mGy-cm FINDINGS: The ventricles are enlarged. The dilatation of the ventricles is proportional to the degree of sulcal prominence, not uncommon in the senescent brain. Decreased attenuation is identified within the periventricular white matter, likely secondary to micr ovascular ischemic disease, in a patient of this age. There is no mass, mass effect or midline shift. There is no abnormal extra-axial fluid collection or intracranial hemorrhage. Visualized paranasal sinuses are clear. The mastoid air cells are well aerated. No acute displaced fractures within the overlying cranium. Impression: No acute intracranial hemorrhage or suspicious mass effect. Reviewed, dictated and finalized at location A. SURGERY TECHNICIAN Impression: No acute intracranial hemorrhage or suspicious mass effect.
--- OUTSIDE RECORDS SUMMARY | 2024-10-01 19:23 | XMS_ITS | Clinical Summary ---
Author Organization [facility] Address [address] [place] [address] Care Team Providers Care Buckle Wire Inserter Name Role Phone Gino Meyer MD Primary Care Provider [phone] Christel Mejia MD Unavailable Allergies No known [...] carvedilol (COREG) 12.5 MG tabletIndicatio ns:Atrial fibrillation ([facility]) Take 1 tablet (12.5 mg total) by mouth 2 (two) times daily. 60 tablet 08/11/20 24 2024 Discontinued metOLazone (ZAROXOLYN) 2.5 MG tablet Take 1 tablet (2.5 mg total) by mouth daily. Pt should take metolazone 30 minutes before taking Furosamide in the morning. 30 tablet 09/22/19 25 2024 Discontinued(R eorder) Active Problems Problem Noted Date Diagnosed Date Breast cancer ([facility]) 07/23/2023 S/P coronary artery stent placement 03/18/2021 Mixed hyperlipidemia 07/10/2017 Stage 2 chronic kidney disease 06/14/2014 Non-ischemic cardiomyopathy ([facility]) AICD (automatic cardioverter/defibrillator) pres ent Hypertension Coronary artery disease Systolic heart failure ([facility]) Resolved Problems Problem Noted Date Diagnosed Date Resolved Date Hypotension due to hypovolemia 04/25/2022 06/13/2023 Obesity (BMI 30-39.9) 07/10/20172021 Encounters Date Type Department Care Team Description 09/30/2024 Telephone [facility] [address] [place] [address] Christel Mejia MD Appointment Request 09/24/2024 Telephone [facility] [address] [place] [address] Jaida Yee APRN, COUNTY COMMISSIONER-C Follow Up Call 09/24/2024 Orders Only [facility] [address] [place] [address] Heidy Landers LPN 09/22/2024 Abstract [facility] [address] [place] [address] Jaida Yee APRN, COUNTY COMMISSIONER-C 09/22/2024 Telephone [facility] [address] [place] [address] Jaida Yee APRN, COUNTY COMMISSIONER-C Other 09/16/2024 10:39 AM TITLE LAWYER - 09/16/2024 11:59 PM TITLE LAWYER Hospital Encounter [facility] [address] [place] [address] Barbi Day, CHRONIC MANAGER Discharge Disposition: Home or Self Care (Routine Discharge) 09/16/2024 Travel 09/16/2024 Telephone [facility] [address] [place] [address] Jaida Yee APRN, COUNTY COMMISSIONER-C Question 09/10/2024 Telephone [facility] [address] [place] [address] Jaida Yee APRN, COUNTY COMMISSIONER-C Follow Up Call 09/10/2024 Abstract [facility] [address] [place] [address] Abstract, Doc Pccl 09/08/2024 11:00 AM TITLE LAWYER Office Visit [facility] [address] [place] [address] Jaida Yee APRN, COUNTY COMMISSIONER-C Follow Up; CHF 09/08/2024 Telephone [facility] [address] [place] [address] Stella Llanos MD Appointment Request 09/08/2024 Telephone [facility] [place] [address] [place] [address] Jaida Yee APRN, COUNTY COMMISSIONER-C Referral 09/08/2024 Travel 09/01/2024 11:15 AM TITLE LAWYER Allied Health/Nurse Visit [facility] [address] [place] [address] Christel Mejia MD 09/01/2024 11:15 AM TITLE LAWYER Office Visit [facility] [address] [place] [address] Christel Mejia MD Follow Up; Cardiac Device Management; Atrial Fibrillation 09/01/2024 Orders Only [facility] [address] [place] [address] Jaida Yee APRN, COUNTY COMMISSIONER-C 09/01/2024 Telephone [facility] [address] [place] [address] Jaida Yee APRN, COUNTY COMMISSIONER-C Appointment Request 09/01/2024 Travel 08/31/2024 Scan [facility] [address] [place] [address] Scanned, Doc Pccl 08/31/2024 Orders Only [facility] [address] [place] [address] Christel Mejia MD 08/31/2024 Telephone [facility] [address] [place] [address] Christel Mejia MD Record Request 08/28/2024 Scan [facility] [address] [place] [address] Scanned, Doc Pccl 08/28/2024 Telephone [facility] [address] [place] [address] Christel Mejia MD Record Request 08/25/2024 Telephone [facility] [address] [place] [address] Christel Mejia MD Reschedule 08/20/2024 Orders Only [facility] [address] [place] [address] Christel Mejia MD 08/10/2024 [facility] [address] [place] [address] Christel Mejia MD Appointment Request [...] place to sleep or slept in a senior care (including now)? Yes 11/29/2022 Comments No Sex and Gender Information Value Date Recorded Sex Assigned at Female 09/01/2024 10:13 AM TITLE LAWYER Legal Sex Female 10:21 PM CDT Gender Identity Not on file Sexual Orientation Not on file Occupation Industry Job Start Date Job End Date retired Not on file Not on file Not on file Last Filed Vital Signs Vital Sign Reading Time Taken Comments Blood Pressure 110/80 09/08/2024 10:51 AM TITLE LAWYER Pulse 112 09/08/2024 10:51 AM TITLE LAWYER Temperature 36.8 C (98.2 F) 08/30/2023 12:39 PM TITLE LAWYER Respiratory Rate 16 09/08/2024 10:51 AM TITLE LAWYER Oxygen Saturation 94% 09/08/2024 10:51 AM TITLE LAWYER Inhaled Oxygen Concentration - - Weight 87.5 kg (193 lb) 09/08/2024 10:51 AM TITLE LAWYER Height 152.4 cm (5') 09/08/2024 10:51 AM TITLE LAWYER Body Mass Index 37.69 09/08/2024 10:51 AM TITLE LAWYER Plan of Treatment Upcoming Encounters Date Type Department Care Team (Late st Contact Info) Description 10/12/2024 3:45 PM TITLE LAWYER Office Visit [facility] [place] [address] Stella Llanos MD [address] [place] [address] 12/07/2024 1:15 AM CDT Allied Health/Nurse [facility] [address] [place] [address] Christel Mejia MD [address] [place] [address] 12/21/2024 2:30 PM CDT Office Visit [facility] [address] [place] [address] Maciel Wang, PATanishaC [address] [place] [address] 12/21/2024 2:30 PM CDT Allied Health/Nurse [facility] [address] [place] [address] Christel Mejia MD [address] [place] [address] Health Maintenance Due Date Last Done Comments [...] Lambert RN Medical Devices Implanted Type Area Ssis Architect Device Identifier Shelf Expiration Date Model / Serial / Lot [employer] Vigilant El Dr-08/30/2023 Implanted:Qty: 1 on 08/30/2023 by Christel Mejia MD ICD [employer] 12/28/2024 [id number] / [id number] / Description:DX: NIC MRI Conditional under following conditions: Static magnetic field of 1.5 T or 3 T, Max spatial gradient field of 5000 Gauss/cm or less, Max slew rate 200 T/m/s , WHOLE BODY TERESO OF 2 W/KG OR LESS, HEAD TERESO 3.2 W/KG OR LESS , Supine or Prone only [employer] Ra-08/30/2023 Implanted:Qty: 1 on 08/30/2023 by Christel Mejia MD Lead Implant [employer] 01/04/2025 [id number] / [id number] / [employer] Rv-08/30/2023 Implanted:Qty: 1 on 08/30/2023 by Christel Mejia MD Lead Implant [employer] 04/08/2024 [id number] / [id number] / Cv Synergy Xd Jose-Lad- 021 Implanted:02/18 by Russell Bentley MD (Quantity not on file) Stent Coronary LAD [employer] 10/05/2022 [id number] / / [id number] Cv [employer] Xd Jose-Rose-2020 Implanted:02/18 by Russell Bentley MD (Quantity not on file) Stent Coronary LAD [employer] 11/17/2022 [id number] / / [id number] Procedures Procedure Name Priority Date/Time Associated Diagnosis Comments BASIC METABOLIC PANEL Routine 09/24/2024 financial project manager use of drug BASIC METABOLIC PANEL Routine 09/18/2024 financial project manager use of drug BASIC METABOLIC PANEL Routine 09/09/2024 ELECTROCARDIOGRAM (NON MIDMARK ACQUIRED) Routine 09/01/2024 10:27 AM TITLE LAWYER Atrial fibrillation, unspecified type (CMS/HCC HHS/HCC) AICD (automatic cardioverter/defibri llator) present COMPREHENSIVE METABOLIC PANEL Routine 08/31/2024 CBC, MANUAL DIFF Routine 08/31/2024 LIPID PANEL Routine 03/27/2021 10:35 AM CDT financial project manager use of drug Hyperlipidemia, unspecified hyperlipidemia type [...] ESTIMATE 27 09/24/2024 us Jaida Yee APRN, COUNTY COMMISSIONER-C LABORATORY Final Result * ELECTROCARDIOGRAM (09/01/2024 10:27 AM TITLE LAWYER) 09/01/2024 10:2 7 AM TITLE LAWYER Narrative [facility] - 09/07/2024 7:54 AM TITLE LAWYER [facility] [address] [place] [address] Test Date: 2024-09-01 Pat Name: JENNIFER MOREAU Department: 105 Room: Gender: Female Fishing Rod Trimmer: GIO : 1940 Requested By: CHRISTEL MEJIA Order Number: [id number] Reading MD: Christel Mejia Measurements Intervals Boss Rate: 91 P: 44 MO: 185 QRS: -54 QRSD: 115 T: 123 QT: 368 QTc: 455 Interpretive Statements SINUS RHYTHM LEFT AXIS DEVIATION MODERATE INTRAVENTRICULAR CONDUCTION DELAY ST DEVIATION AND MODERATE T-WAVE ABNORMALITY, CONSIDER LATERAL ISCHEMIA E LAWYER Procedure Note Christel Mejia MD - 09/07/2024 [facility], [place] [address] [place] [address] Test Date: 2024-09-01 Pat Name: JENNIFER MOREAU Department: 105 Room: Gender: Female Fishing Rod Trimmer: GIO : 1940 Requested By: CHRISTEL MEJIA Order Number: [id number] Reading MD: Christel Mejia Measurements Intervals Boss Rate: 91 P: 44 MO: 185 QRS: -54 QRSD: 115 T: 123 QT: 368 QTc: 455 Interpretive Statements SINUS RHYTHM LEFT AXIS DEVIATION MODERATE INTRAVENTRICULAR CONDUCTION DELAY ST DEVIATION AND MODERATE T-WAVE ABNORMALITY, CONSIDER LATERAL ISCHEMIA E LAWYER Christel Mejia MD PROCEDURES-ORDERABLE NO CHARGE F inal Result [facility] * (ABNORMAL) COMPREHENSIVE METABOLIC PANEL (08/31/2024) SODIUM S/P/B 138 GLUCOSE 103 mg/dL AST 31 BUN 27 CREATININE S/P/B 1.23(A) 0.5 - 1.0 CALCIUM S/P/B 8.0 POTASSIUM S/P/B 3.8 CHLORIDE S/P/B 102 ALT 21 GFR ESTIMATE 42 Narrative Resulting Agency Comment [facility]ly [facility] us Default History Genericprovider LABORATORY Final Result * CBC, MANUAL DIFF (08/31/2024) WBC 7.4 HGB 10.8 HCT 35.8 PLT 231 Narrative Resulting Agency Comment [facility]ly [facility] us Default History Genericprovider LABORATORY Final Result * LIPID PANEL (03/27/2021 10:35 AM CDT) CHOLESTEROL 201 MG/DL 03/27/2021 11:16 AM CDT [facility] Comment:BORDERLINE HIGH: 200 -239 TRIGLYCERIDES 175 MG/DL 03/27/2021 11:16 AM CDT [facility] Comment:150-199 BORDERLINE H IGH HDL 56 >49 MG/DL 03/27/2021 11:16 AM CDT [facility] LDL (CALCULATED) 110 MG/DL 03/27/20 11:16 AM CDT [facility] Comment:100-129 NEAR OR ABOV E OPTIMAL VLDL CALCULATION 35 MG/DL 03/27/20 11:16 AM CDT [facility] Comment:REFERENCE RANGE NOT ESTABLISHED CHOL/HDL RATIO 3.6 03/27/2021 11:16 AM CDT [facility] Comment:REFERENCE RANGE NOT ESTABLISHED LDL/HDL 2.0 03/27/2021 11:16 AM CDT [facility] Comment:REFERENCE RANGE NOT ESTABLISHED NON HDL CHOLESTEROL 145 MG/DL 03/27/2021 11:16 AM CDT [facility] Comment:REFERENCE RANGE NOT ESTABLISHED 03/27/2021 10:3 5 AM CDT us PRINCE Brand APRNC LABORATORY Final Result [facility] [address] [place] [address], [id number] from Last 3 Months or Most Recently Relevant to Health Maintenance Insurance [facility] MEDICAID [facility] MEDICAID Advance Directives Documents on File Type Date Recorded Patient Sewage Screen Operator Expl anation Advance Directives and Living Will [...] 1:31 PM 11/29/2022 4:09 PM Care Teams Buckle Wire Inserter Relationship Specialty Start Date End Date Gino Meyer MD [address] [place] [address] PCP - General INTERNAL MEDICINE 06/11/17 Christel Mejia MD [address] [place] [address] EP Physical Plant Employee CLINICAL CARDIAC ELECTROPHYSIOLOGY 06/12/23
--- OUTSIDE RECORDS SUMMARY | 2024-10-01 19:23 | XMS_ITS | Encounter Summary ---
Author Organization [facility] Address Formerly [facility] [place] [address] Care Team Providers Care Wheelchair Van Driver Name Role Phone Toy Warren MD Primary Care Provider [phone] Santos Fuentes MD Unavailable UnavailGino Mena MD Primary Care Provider [phone] Shana Adams NP Unavailable Unavailable Christel Lu MD Unavailable Encounter Details Date Type Department Care Team (Late st Contact Info) Description 03/06/2017 Abstract [facility] [address] [place] [address] Santos Fuentes MD Social History Tobacco Use Types Packs/Day Years Used Date Smoking Tobacco: Never Alcohol Use Standard Drinks/Week Comments No 0 (1 standard drink = 0.6 oz pur e alcohol) Comments Unknown Sex and Gender Information Value Date Recorded Sex Assigned at Female 09/01/2024 10:13 AM HIGH SCHOOL PRINCIPAL Legal Sex Female 10:21 PM CDT Gender Identity Not on file Sexual Orientation Not on file Occupation Industry Job Start Date Job End Date retired Not on file Not on file Not on file documented as of this encounter Plan of Treatment Upcoming Encounters Date Type Department Care Team (Late st Contact Info) Description 10/12/2024 3:45 PM HIGH SCHOOL PRINCIPAL Office Visit [facility] [place] [address] Stella Llanos MD [address] [place] [address] 12/07/2024 1:15 AM CDT Allied Health/[facility] [address] [place] [address] Christel Lu MD [address] [place] [address] 12/21/2024 2:30 PM CDT Office [facility] [address] [place] [address] Maciel Wang PATanishaC [address] [place] [address] 12/21/2024 2:30 PM CDT Allied Health/Nurse Visit [facility] [place] [address] [place] [address] Christel Lu MD [address] [place] [address] documented as of this encounter Visit Diagnoses Not on filedocumented in this encounter Additional Health Concerns Infection Onset Date Last Indicated Resolved Time COVID-19 Rule Out 04/24/2022 04/24/2022 04/24/2022 4:06 AM CDT documented as of this encounter Care Teams Wheelchair Van Driver Relationship Specialty Start Date End Date Toy Warren MD [address] [place], [place] [id number] PCP - General INTERNAL MEDICINE 02/06/17 06/10/17 Gino Meyer MD [address] [place] [address] PCP - General INTERNAL MEDICINE 06/11/17 Santos Fuentes MD [address] [place] [address] [place] Thread Separator CARDIOVASCULAR DISEASE 02/06/17 08/31/24 Shana Adams NP [address] [place] [address] Referring Physician Nurse Practitioner [facility] 02/27/23 Christel Lu MD [address] [place] [address] EP Thread Separator CLINICAL CARDIAC ELECTROPHYSIOLOGY 06/12/23 documented as of this encounter
--- OUTSIDE RECORDS SUMMARY | 2024-10-01 19:23 | XMS_ITS | Encounter Summary ---
Author Organization [facility] Address [facility] [place] [address] Care Team Providers Care Gyroscopic Engineering Technician Name Role Phone Santos Fuentes MD Unavailable UnavailGino Mena MD Primary Care Provider [phone] Shana Adams NP Unavailable Unavailable Christel Lu MD Unavailable Encounter Details Date Type Department Care Team (Late st Contact Info) Description 12/06/2022 Hospital Follow-up Call [facility] Unit [address] [place] [address] Stephie Arreola, RN Social History [...] place to sleep or slept in a long term (including now)? Yes 11/29/2022 Comments No Sex and Gender Information Value Date Recorded Sex Assigned at Female 09/01/2024 10:13 AM PSYCHOLOGY TECHNICIAN Legal Sex Female 10:21 PM CDT Gender [...] st Contact Info) Description 10/12/2024 3:45 PM PSYCHOLOGY TECHNICIAN Office Visit [facility] [place] [address] Stella Llanos MD [address] [place] [address] 12/07/2024 1:15 AM CDT Allied Health/Nurse Visit [facility] [address] [place] [address] Christel Lu MD [address] [place] [address] 530- 12/21/2024 2:30 PM CDT Office Visit [facility] [address] [place] [address] Maciel Wang PATanishaC [address] [place] [address] 320- 12/21/2024 2:30 PM CDT Allied Health/Nurse Visit [facility] [address] [place] [address] Crhistel Lu MD [address] [place] [address] documented as of this encounter Goals Goal Patient Goal Type Associated Problems Recent Progress Patient-Stated? Author Safety Patient/family will have appropriate support at home upon discharge Lifestyle No Merissa Santiago, RN Safety Patient/family will have appropriate support at home upon discharge Lifestyle No Elina Lambert, RN documented as of this encounter Visit Diagnoses Not on filedocumented in this encounter Care Teams Gyroscopic Engineering Technician Relationship Specialty Start Date End Date Gino Meyer MD [address] [place] [address] PCP - General INTERNAL MEDICINE 06/11/17 Santos Fuentes MD [place] [employer] Technical Lead CARDIOVASCULAR DISEASE 02/06/17 08/31/24 Shana Adams NP [address] [place] [address] Referring Physician Nurse Practitioner Family 02/27/23 Christel Lu MD [address] [place] [address] EP Development Technical Lead CLINICAL CARDIAC ELECTROPHYSIOLOGY 06/12/23 documented as of this encounter
--- OUTSIDE RECORDS SUMMARY | 2024-10-01 19:23 | XMS_ITS | Encounter Summary ---
Author Organization [facility] Address [facility]ly [facility] [place] [address] Care Team Providers Care Adult Live In Caregiver Name Role Phone Santos Fuentes MD Unavailable UnavailGino Mena MD Primary Care Provider [phone] Shana Adams NP Unavailable Unavailable Christel Lu MD Unavailable Encounter Details Date Type Department Care Team (Late Contact Info) Description 02/15/2021 Abstract [facility] [address] [place] [address] Santos Fuentes MD Social History Tobacco Use Types Packs/Day Years Used Date Smoking Tobacco: Never Smokeless Tobacco: Never Alcohol Use Standard Drinks/Week Comments No 0 (1 standard drink = 0.6 oz pur e alcohol) Comments Unknown Sex and Gender Information Value Date Recorded Sex Assigned at Female 09/01/2024 10:13 AM BIOPHYSICS TEACHER Legal Sex Female 10:21 PM CDT Gender [...] (Late Contact Info) Description 10/12/2024 3:45 PM BIOPHYSICS TEACHER Office Visit [facility] [place] [address] Stella Llanos MD [address] [place], [place] [address] 12/07/2024 1:15 AM CDT Allied Health/Nurse Visit [facility] [address] [place] [address] Christel Lu MD [address] [place] [address] 12/21/2024 2:30 PM CDT Office Visit [facility] [address] [place] [address] Maciel Wang, PATanishaC [address] [place] [address] 12/21/2024 2:30 PM CDT Allied Health/Nurse Visit [facility] [address] [place] [address] Christel Lu MD [address] [...] documented as of this encounter Care Teams Adult Live In Caregiver Relationship Specialty Start Date End Date Gino Meyer MD [address] [place] [address] PCP - General INTERNAL MEDICINE 06/11/17 Santos Fuentes MD [place] Rivet Tester CARDIOVASCULAR DISEASE 02/06/17 08/31/24 Shana Adams NP [address] [place] [address] Referring Physician Nurse Practitioner Family 02/27/23 Christel Lu MD [address] [place] [address] EP Rivet Tester CLINICAL CARDIAC ELECTROPHYSIOLOGY 06/12/23 documented as of this encounter
--- OUTSIDE RECORDS SUMMARY | 2024-10-01 19:23 | XMS_ITS | Encounter Summary ---
Author Organization [facility] Address [facility] [place] [address] Care Team Providers Care Entry Level Management Name Role Phone Toy Warren MD Primary Care Provider [phone] Santos Fuentes MD Unavailable UnavailGino Mena MD Primary Care Provider [phone] Shana Adams NP Unavailable Unavailable Christel Lu MD Unavailable Encounter Details Date Type Department Care Team (Late st Contact Info) Description 01/31/2017 Abstract [facility] [address] [place] [address] Santos Fuentes MD Social History Tobacco Use Types Packs/Day Years Used Date Smoking Tobacco: Never Alcohol Use Standard Drinks/Week Comments No 0 (1 standard drink = 0.6 oz pur e alcohol) Comments Unknown Sex and Gender Information Value Date Recorded Sex Assigned at Female 09/01/2024 10:13 AM REAL ESTATE VALUER Legal Sex Female 10:21 PM CDT Gender Identity Not on file Sexual Orientation Not on file Occupation Industry Job Start Date Job End Date retired Not on file Not on file Not on file documented as of this encounter Plan of Treatment Upcoming Encounters Date Type Department Care Team (Late st Contact Info) Description 10/12/2024 3:45 PM REAL ESTATE VALUER Office Visit [facility] [place] [address] Stella Llanos MD [address] [place] [address] 12/07/2024 1:15 AM CDT Allied Health/Nurse [facility] [address] [place] [address] Christel Lu MD [address] [place] [address] 12/21/2024 2:30 PM CDT Office Visit [facility] [address] [place] [address] Maciel Wang PATanishaC [address] [place] [address] 12/21/2024 2:30 PM CDT Allied Health/Nurse Visit [facility] ld [address] [place] [address] Christel Lu MD [address] [place] [address] documented as of this encounter Visit Diagnoses Not on filedocumented in this encounter Additional Health Concerns Infection Onset Date Last Indicated Resolved Time COVID-19 Rule Out 04/24/2022 04/24/2022 04/24/2022 4:06 AM CDT documented as of this encounter Care Teams Entry Level Management Relationship Specialty Start Date End Date Toy Warren MD [address] [place], [place] [phone] PCP - General INTERNAL MEDICINE 02/06/17 06/10/17 Gino Meyer MD [address] [place] [address] PCP - General INTERNAL MEDICINE 06/11/17 Santos Fuentes MD [address] [place] [address] [place] Load Test Mechanic CARDIOVASCULAR DISEASE 02/06/17 08/31/24 Shana Adams NP [address] [place] [address] Referring Physician Nurse Practitioner [facility] 02/27/23 Christel Lu MD [address] [place] [address] EP Load Test Mechanic CLINICAL CARDIAC ELECTROPHYSIOLOGY 06/12/23 documented as of this encounter
--- OUTSIDE RECORDS SUMMARY | 2024-10-01 19:23 | XMS_ITS | Encounter Summary ---
Author Organization [facility] Address [facility] [place] [address] Care Team Providers Care Concert Or Lecture Hall Manager Name Role Phone Gino Meyer MD Primary Care Provider [phone] Christel Lu MD Unavailable Reason for Visit * Reason Onset Date Comments Appointment Request 09/30/2024 Encounter Details Date Type Department Care Team ([facility] st Contact Info) Description 09/30/2024 Telephone [facility] [address] [place] [address] Christel Lu MD [address] [place] [address] Appointment Request Social History Tobacco [...] place to sleep or slept in a chcf (including now)? Yes 11/29/2022 Comments No Sex and Gender Information Value Date Recorded Sex Assigned at Female 09/01/2024 10:13 AM PATIENT MANAGER Legal Sex Female 10:21 PM CDT Gender [...] 12/21/24 at 2:30 pm. Reminder letter mailed. ENT MANAGER documented in this encounter Plan of Treatment Upcoming Encounters Date Type Department Care Team (Late st Contact Info) Description 10/12/2024 3:45 PM PATIENT MANAGER Office Visit [facility] [place] [address] Stella Llanos MD [address] [place] [address] 12/07/2024 1:15 AM CDT Allied Health/Nurse Visit [facility] [address] [place] [address] Christel Lu MD [address] [place] [address] 12/21/2024 2:30 PM CDT Office Visit [facility] [address] [place] [address] Maciel Wang PA-C [address] [place] [address] 12/21/2024 2:30 PM CDT Allied Health/Nurse Visit [facility] [address] [place] [address] Christel Lu MD [address] [place] [address] documented as of this encounter Goals Goal Patient Goal Type Associated Problems Recent Progress Patient-Stated? Author Safety Patient/family will have appropriate support at home upon discharge Lifestyle No Merissa Santiago RN Safety Patient/family will have appropriate support at home upon discharge Lifestyle No Elina Lambert, RN documented as of this encounter Visit Diagnoses Not on filedocumented in this encounter Care Teams Concert Or Lecture Hall Manager Relationship Specialty Start Date End Date Gino Meyer MD [address] [place] [address] PCP - General INTERNAL MEDICINE 06/11/17 Christel Lu MD [address] [place] [address] EP Herpetology Teacher CLINICAL CARDIAC ELECTROPHYSIOLOGY 06/12/23 documented as of this encounter
[2024-10-01 19:25] VITALS: BP 99/73; PULSE 87; RESP 18; TEMP 36.8; O2SAT 97
--- NOTE | 2024-10-01 19:41 | PC.NURSE ---
LABS HAVE BEEN DRAWN. PATIENT WAS TAKEN DOWN TO CT VIA STRETCHER
[2024-10-01 19:49] LABS: Basophils Absolute Auto 0.05 K/mm3 (0.00-0.10); Basophils Percent Auto 0.5 % (0.0-1.0); Eosinophils Percent Auto 4.3 % (1.0-6.0); Hematocrit 40.7 % (35.0-42.0); Hemoglobin 12.2 g/dL (11.7-13.8); Immature Granulocyte Absolute 0.05 K/mm3 (0.00-0.00); Immature Granulocyte Percent A 0.5 % (0.0-0.0); Lymphocytes Absolute Auto 0.72 K/mm3 (1.10-4.50); Lymphocytes Percent Auto 7.7 % (18.0-42.0); Mean Corpuscular Hemoglobin 26.1 pg (27.0-31.0); Mean Platelet Volume 10.9 fl (9.2-11.8); Monocytes Absolute Auto 1.05 K/mm3 (0.10-0.90); Monocytes Percent Auto 11.2 % (2.0-11.0); Neutrophils Absolute Auto 7.13 K/mm3 (1.70-7.20); Neutrophils Percent Auto 75.8 % (50.0-70.0); Platelet Count Result 259 K/mm3 (150-420); Red Blood Count 4.68 M/mm3 (4.20-5.40); Red Cell Distribution Width 17.6 % (11.6-14.4); White Blood Count 9.4 K/mm3 (4.8-10.8)
--- OUTSIDE RECORDS SUMMARY | 2024-10-01 20:02 | XMS_ITS | Encounter Summary ---
Author Organization [facility] Address [facility] [place] [address] Care Team Providers Care Chute Worker Name Role Phone Toy Warren MD Primary Care Provider [phone] Santos Fuentes MD Unavailable UnavailGino Mena MD Primary Care Provider [phone] Shana Adams NP Unavailable Unavailable Chrisetl Lu MD Unavailable Encounter Details Date Type Department Care Team (Late st Contact Info) Description 03/06/2017 Abstract [facility] [address] [place] [address] Santos Fuentes MD Social History Tobacco Use Types Packs/Day Years Used Date Smoking Tobacco: Never Alcohol Use Standard Drinks/Week Comments No 0 (1 standard drink = 0.6 oz pur e alcohol) Comments Unknown Sex and Gender Information Value Date Recorded Sex Assigned at Female 09/01/2024 10:13 AM THEORETICAL PHYSICS TEACHER Legal Sex Female 10:21 PM CDT Gender Identity Not on file Sexual Orientation Not on file Occupation Industry Job Start Date Job End Date retired Not on file Not on file Not on file documented as of this encounter Plan of Treatment Upcoming Encounters Date Type Department Care Team (Late st Contact Info) Description 10/12/2024 3:45 PM THEORETICAL PHYSICS TEACHER Office Visit [facility]-[address] [place] [address] Stella Llanos MD [address] [place] [address] 12/07/2024 1:15 AM CDT Allied Health/[facility] [address] [place] [address] Christel Lu MD [address] [place] [address] 12/21/2024 2:30 PM CDT [facility] [address] [place] [address] Maciel Wang PATanishaC [address] [place] [address] 12/21/2024 2:30 PM CDT Allied Health/Nurse Visit [facility] [place] [address] [place] [address] Christel Lu MD [address] [place] [address] documented as of this encounter Visit Diagnoses Not on filedocumented in this encounter Additional Health Concerns Infection Onset Date Last Indicated Resolved Time COVID-19 Rule Out 04/24/2022 04/24/2022 04/24/2022 4:06 AM CDT documented as of this encounter Care Teams Chute Worker Relationship Specialty Start Date End Date Toy Warren MD [address] [place], [place] [phone] PCP - General INTERNAL MEDICINE 02/06/17 06/10/17 Gino Meyer MD [address] [place] [address] PCP - General INTERNAL MEDICINE 06/11/17 Santos Fuentes MD [address] [place] [address] [place] Software Test Engineer CARDIOVASCULAR DISEASE 02/06/17 08/31/24 Shana Adams NP [address] [place] [address] Referring Physician Nurse Practitioner [facility] 02/27/23 Christel Lu MD [address] [place] [address] EP Software Test Engineer CLINICAL CARDIAC ELECTROPHYSIOLOGY 06/12/23 documented as of this encounter
--- OUTSIDE RECORDS SUMMARY | 2024-10-01 20:02 | XMS_ITS | Clinical Summary ---
Author Organization [facility] Address [address] [place] [address] Care Team Providers Care Auditor Appraiser Name Role Phone Gino Meyer MD Primary Care Provider [phone] Christel Mejia MD Unavailable Allergies No known [...] carvedilol (COREG) 12.5 MG tabletIndicatio ns:Atrial fibrillation ([facility]) Take 1 tablet (12.5 mg total) by mouth 2 (two) times daily. 60 tablet 08/11/20 24 2024 Discontinued metOLazone (ZAROXOLYN) 2.5 MG tablet Take 1 tablet (2.5 mg total) by mouth daily. Pt should take metolazone 30 minutes before taking Furosamide in the morning. 30 tablet 09/22/19 25 2024 Discontinued(R eorder) Active Problems Problem Noted Date Diagnosed Date Breast cancer ([facility]) 07/23/2023 S/P coronary artery stent placement 03/18/2021 Mixed hyperlipidemia 07/10/2017 Stage 2 chronic kidney disease 06/14/2014 Non-ischemic cardiomyopathy ([facility]) AICD (automatic cardioverter/defibrillator) pres ent Hypertension Coronary artery disease Systolic heart failure ([facility]) Resolved Problems Problem Noted Date Diagnosed Date Resolved Date Hypotension due to hypovolemia 04/25/2022 06/13/2023 Obesity (BMI 30-39.9) 07/10/20172021 Encounters Date Type Department Care Team Description 09/30/2024 Telephone [facility] [address] [place] [address] Christel Mejia MD Appointment Request 09/24/2024 Telephone [facility] [address] [place] [address] Jaida Yee APRN, DIEING OUT MACHINE OPERATOR-C Follow Up Call 09/24/2024 Orders Only [facility] [address] [place] [address] Heidy Landers LPN 09/22/2024 Abstract [facility] [address] [place] [address] Jaida Yee APRN, DIEING OUT MACHINE OPERATOR-C 09/22/2024 Telephone [facility] [address] [place] [address] Jaida Yee APRN, DIEING OUT MACHINE OPERATOR-C Other 09/16/2024 10:39 AM AUTHORIZER - 09/16/2024 11:59 PM AUTHORIZER Hospital Encounter [facility] [address] [place] [address] Barbi Day, TROLLEY CAR OPERATOR Discharge Disposition: Home or Self Care (Routine Discharge) 09/16/2024 Travel 09/16/2024 Telephone [facility] [address] [place] [address] Jaida Yee APRN, DIEING OUT MACHINE OPERATOR-C Question 09/10/2024 Telephone [facility] [address] [place] [address] Jaida Yee APRN, DIEING OUT MACHINE OPERATOR-C Follow Up Call 09/10/2024 Abstract [facility] [address] [place] [address] Abstract, Doc Pccl 09/08/2024 11:00 AM AUTHORIZER Office Visit [facility] [address] [place] [address] Jaida Yee APRN, DIEING OUT MACHINE OPERATOR-C Follow Up; CHF 09/08/2024 Telephone [facility] [address] [place] [address] Stella Llanos MD Appointment Request 09/08/2024 Telephone [facility] [place] [address] [place] [address] Jaida Yee APRN, DIEING OUT MACHINE OPERATOR-C Referral 09/08/2024 Travel 09/01/2024 11:15 AM AUTHORIZER Allied Health/Nurse Visit [facility] [address] [place] [address] Christel Mejia MD 09/01/2024 11:15 AM AUTHORIZER Office Visit [facility] [address] [place] [address] Christel Mejia MD Follow Up; Cardiac Device Management; Atrial Fibrillation 09/01/2024 Orders Only [facility] [address] [place] [address] Jaida Yee APRN, DIEING OUT MACHINE OPERATOR-C 09/01/2024 Telephone [facility] [address] [place] [address] Jaida Yee APRN, DIEING OUT MACHINE OPERATOR-C Appointment Request 09/01/2024 Travel 08/31/2024 Scan [facility] [address] [place] [address] Scanned, Doc Pccl 08/31/2024 Orders Only [facility] [address] [place] [address] Christel Mejia MD 08/31/2024 Telephone [facility] [address] [place] [address] Christel Mejia MD Record Request 08/28/2024 Scan [facility] [address] [place] [address] Scanned, Doc Pccl 08/28/2024 Telephone [facility] [address] [place] [address] Christel Mejia MD Record Request 08/25/2024 Telephone [facility] [address] [place] [address] Christel Mjeia MD Reschedule 08/20/2024 Orders Only [facility] [address] [place] [address] Christel Mejia MD 08/10/2024 [facility] [address] [place] [address] Christel Mejia MD Appointment Request [...] place to sleep or slept in a correction (including now)? Yes 11/29/2022 Comments No Sex and Gender Information Value Date Recorded Sex Assigned at Female 09/01/2024 10:13 AM AUTHORIZER Legal Sex Female 10:21 PM CDT Gender Identity Not on file Sexual Orientation Not on file Occupation Industry Job Start Date Job End Date retired Not on file Not on file Not on file Last Filed Vital Signs Vital Sign Reading Time Taken Comments Blood Pressure 110/80 09/08/2024 10:51 AM AUTHORIZER Pulse 112 09/08/2024 10:51 AM AUTHORIZER Temperature 36.8 C (98.2 F) 08/30/2023 12:39 PM AUTHORIZER Respiratory Rate 16 09/08/2024 10:51 AM AUTHORIZER Oxygen Saturation 94% 09/08/2024 10:51 AM AUTHORIZER Inhaled Oxygen Concentration - - Weight 87.5 kg (193 lb) 09/08/2024 10:51 AM AUTHORIZER Height 152.4 cm (5') 09/08/2024 10:51 AM AUTHORIZER Body Mass Index 37.69 09/08/2024 10:51 AM AUTHORIZER Plan of Treatment Upcoming Encounters Date Type Department Care Team (Late st Contact Info) Description 10/12/2024 3:45 PM AUTHORIZER Office Visit [facility] [place] [address] Stella Llanos MD [address] [place] [address] 12/07/2024 1:15 AM CDT Allied Health/[facility] [address] [place] [address] Christel Mejia MD [address] [place] [address] 12/21/2024 2:30 PM CDT [facility] [address] [place] [address] Maciel Wang, PATanishaC [address] [place] [address] 12/21/2024 2:30 PM CDT Allied Health/Nurse [facility] [address] [place] [address] Christel Mejia MD [address] [place] [address] Health Maintenance Due Date Last Done Comments [...] Lambert RN Medical Devices Implanted Type Area Perpetual Inventory Clerk Device Identifier Shelf Expiration Date Model / Serial / Lot [employer] Vigilant El Dr-08/30/2023 Implanted:Qty: 1 on 08/30/2023 by Christel Mejia MD ICD [employer] 12/28/2024 [id number] / [id number] / Description:DX: NIC MRI Conditional under following conditions: Static magnetic field of 1.5 T or 3 T, Max spatial gradient field of 5000 Gauss/cm or less, Max slew rate 200 T/m/s , WHOLE BODY TERESO OF 2 W/KG OR LESS, HEAD TERESO 3.2 W/KG OR LESS , Supine or Prone only [employer] Ra-08/30/2023 Implanted:Qty: 1 on 08/30/2023 by Christel Mejia MD Lead Implant [employer] 01/04/2025 [id number] / [id number] / [employer] Rv-08/30/2023 Implanted:Qty: 1 on 08/30/2023 by Christel Mejia MD Lead Implant [employer] 04/08/2024 [id number] / [id number] / Cv Synergy Xd Jose-Lad- 021 Implanted:02/18 by Russell Bentley MD (Quantity not on file) Stent Coronary LAD [employer] 10/05/2022 [id number] / / [id number] Cv [employer]nergy Xd [place]-2020 Implanted:02/18 by Russell Bentley MD (Quantity not on file) Stent Coronary LAD [employer] 11/17/2022 [id number] / / [id number] Procedures Procedure Name Priority Date/Time Associated Diagnosis Comments BASIC METABOLIC PANEL Routine 09/24/2024 middle or intermediate school principal use of drug BASIC METABOLIC PANEL Routine 09/18/2024 middle or intermediate school principal use of drug BASIC METABOLIC PANEL Routine 09/09/2024 ELECTROCARDIOGRAM (NON MIDMARK ACQUIRED) Routine 09/01/2024 10:27 AM AUTHORIZER Atrial fibrillation, unspecified type (CMS/HCC HHS/HCC) AICD (automatic cardioverter/defibri llator) present COMPREHENSIVE METABOLIC PANEL Routine 08/31/2024 CBC, MANUAL DIFF Routine 08/31/2024 LIPID PANEL Routine 03/27/2021 10:35 AM CDT middle or intermediate school principal use of drug Hyperlipidemia, unspecified hyperlipidemia type [...] ESTIMATE 27 09/24/2024 us Jaida Yee APRN, DIEING OUT MACHINE OPERATOR-C LABORATORY Final Result * ELECTROCARDIOGRAM (09/01/2024 10:27 AM AUTHORIZER) 09/01/2024 10:2 7 AM AUTHORIZER Narrative [facility] - 09/07/2024 7:54 AM AUTHORIZER [facility] [address] [place] [address] Test Date: 2024-09-01 Pat Name: JENNIFER MOREAU Department: 105 Room: Gender: Female Supervisor Wood Room: GIO : 1940 Requested By: CHRISTEL MEJIA Order Number: [id number] Reading MD: Christel Mejia Measurements Intervals [place] Rate: 91 P: 44 VT: 185 QRS: -54 QRSD: 115 T: 123 QT: 368 QTc: 455 Interpretive Statements SINUS RHYTHM LEFT AXIS DEVIATION MODERATE INTRAVENTRICULAR CONDUCTION DELAY ST DEVIATION AND MODERATE T-WAVE ABNORMALITY, CONSIDER LATERAL ISCHEMIA ORIZER Procedure Note Christel Mejia MD - 09/07/2024 [facility] [place] [address] [place] [address] Test Date: 2024-09-01 Pat Name: JENNIFER MOREUA Department: 105 Room: Gender: Female Supervisor Wood Room: GIO : 1940 Requested By: CHRISTEL MEJIA Order Number: [id number] Reading MD: Christel Mejia Measurements Intervals [place] Rate: 91 P: 44 VT: 185 QRS: -54 QRSD: 115 T: 123 QT: 368 QTc: 455 Interpretive Statements SINUS RHYTHM LEFT AXIS DEVIATION MODERATE INTRAVENTRICULAR CONDUCTION DELAY ST DEVIATION AND MODERATE T-WAVE ABNORMALITY, CONSIDER LATERAL ISCHEMIA ORIZER Christel Mejia MD PROCEDURES-ORDERABLE NO CHARGE F inal Result [facility] * (ABNORMAL) COMPREHENSIVE METABOLIC PANEL (08/31/2024) SODIUM S/P/B 138 GLUCOSE 103 mg/dL AST 31 BUN 27 CREATININE S/P/B 1.23(A) 0.5 - 1.0 CALCIUM S/P/B 8.0 POTASSIUM S/P/B 3.8 CHLORIDE S/P/B 102 ALT 21 GFR ESTIMATE 42 Narrative Resulting Agency Comment [facility] us Default History Genericprovider LABORATORY Final Result * CBC, MANUAL DIFF (08/31/2024) WBC 7.4 HGB 10.8 HCT 35.8 PLT 231 Narrative Resulting Agency Comment [facility]ly [facility] us Default History Genericprovider LABORATORY Final Result [...] us PRINCE Brand APRNC LABORATORY Final Result [facility] [address] [place] [address], [id number] from Last 3 Months or Most Recently Relevant to Health Maintenance Insurance [facility] MED[facility] MED[facility] Advance Directives Documents on File Type Date Recorded Patient Traffic Rate Analyst Expl anation Advance Directives and Living Will [...] 1:31 PM 11/29/2022 4:09 PM Care Teams Auditor Appraiser Relationship Specialty Start Date End Date Gino Meyer MD [address] [place] [address] PCP - General INTERNAL MEDICINE 06/11/17 Christel Mejia MD [address] [place] [address] EP Veterinary Pathologist CLINICAL CARDIAC ELECTROPHYSIOLOGY 06/12/23
--- OUTSIDE RECORDS SUMMARY | 2024-10-01 20:02 | XMS_ITS | Encounter Summary ---
Author Organization [facility] Address [facility] [place] [address] Care Team Providers Care Differential Specialist Name Role Phone Santos Fuentes MD Unavailable UnavailGino Mena MD Primary Care Provider [phone] Shana Adams NP Unavailable Unavailable Christel Lu MD Unavailable Encounter Details Date Type Department Care Team (Late st Contact Info) Description 12/06/2022 Hospital Follow-up Call [facility] [address] [place] [address] Stephie Arreola, RN Social History [...] Sex Assigned at Female 09/01/2024 10:13 AM MINIATURE MODEL MAKER Legal Sex Female 10:21 PM CDT Gender [...] st Contact Info) Description 10/12/2024 3:45 PM MINIATURE MODEL MAKER Office Visit [facility] [place] [address] Stella Llanos MD [address] [place] [address] 12/07/2024 1:15 AM CDT Allied Health/Nurse Visit [facility] [address] [place] [address] Christel Lu MD [address] [place] [address] 056- 12/21/2024 2:30 PM CDT Office Visit [facility] [address] [place] [address] Maciel Wang PATanishaC [address] [place] [address] 604- 12/21/2024 2:30 PM CDT Allied Health/Nurse Visit [facility] [address] [place] [address] Christel Lu MD [address] [place] [address] documented as of this encounter Goals Goal Patient Goal Type Associated Problems Recent Progress Patient-Stated? Author Safety Patient/family will have appropriate support at home upon discharge Lifestyle No Merissa Santiago, RN Safety Patient/family will have appropriate support at home upon discharge Lifestyle No Elina Lambert, RN documented as of this encounter Visit Diagnoses Not on filedocumented in this encounter Care Teams Differential Specialist Relationship Specialty Start Date End Date Gino Meyer MD [address] [place] [address] PCP - General INTERNAL MEDICINE 06/11/17 Santos Fuentes MD [place] Comprehensive Advisor CARDIOVASCULAR DISEASE 02/06/17 08/31/24 Shana Adams NP [address] [place] [address] Referring Physician Nurse Practitioner Family 02/27/23 Christel Lu MD [address] [place] [address] EP Comprehensive Advisor CLINICAL CARDIAC ELECTROPHYSIOLOGY 06/12/23 documented as of this encounter
--- OUTSIDE RECORDS SUMMARY | 2024-10-01 20:02 | XMS_ITS | Encounter Summary ---
Author Organization [facility] Address [facility] [place] [address] Care Team Providers Care Boat Cleaning Supervisor Name Role Phone Santos Fuentes MD Unavailable UnavailGino Mena MD Primary Care Provider [phone] Shana Adams NP Unavailable Unavailable Christel Lu MD Unavailable Encounter Details Date Type Department Care Team (Late Contact Info) Description 02/15/2021 Abstract [facility] [address] [place] [address] Santos Fuentes MD Social History Tobacco Use Types Packs/Day Years Used Date Smoking Tobacco: Never Smokeless Tobacco: Never Alcohol Use Standard Drinks/Week Comments No 0 (1 standard drink = 0.6 oz pur e alcohol) Comments Unknown Sex and Gender Information Value Date Recorded Sex Assigned at Female 09/01/2024 10:13 AM SENIOR MANAGING DIRECTOR Legal Sex Female 10:21 PM CDT Gender [...] (Late Contact Info) Description 10/12/2024 3:45 PM SENIOR MANAGING DIRECTOR Office Visit [facility] [place] [address] Stella Llanos MD [address] [place], [place] [address] 12/07/2024 1:15 AM CDT Allied Health/Nurse Visit [facility] [address] [place] [address] Christel Lu MD [address] [place] [address] 12/21/2024 2:30 PM CDT Office Visit [facility] [address] [place] [address] Maciel Wang, PATanishaC [address] [place] [address] 12/21/2024 2:30 PM CDT Allied Health/Nurse Visit [facility] [address] [place] [address] Christel Lu MD [address] [place] [address] documented as of this encounter [...] documented as of this encounter Care Teams Boat Cleaning Supervisor Relationship Specialty Start Date End Date Gino Meyer MD [address] [place] [address] PCP - General INTERNAL MEDICINE 06/11/17 Santos Fuentes MD [place] Customer Solutions Coordinator CARDIOVASCULAR DISEASE 02/06/17 08/31/24 Shana Adams NP [address] [place] [address] Referring Physician Nurse Practitioner Family 02/27/23 Christel Lu MD [address] [place] [address] EP Customer Solutions Coordinator CLINICAL CARDIAC ELECTROPHYSIOLOGY 06/12/23 documented as of this encounter
--- OUTSIDE RECORDS SUMMARY | 2024-10-01 20:02 | XMS_ITS | Encounter Summary ---
Author Organization [facility] Address [facility] [place] [address] Care Team Providers Care Pharmaceutical Sales Representative Name Role Phone Toy Warren MD Primary Care Provider [phone] Santos Fuentes MD Unavailable UnavailGino Mena MD Primary Care Provider [phone] Shana Adams NP Unavailable Unavailable Christel Lu MD Unavailable Encounter Details Date Type Department Care Team (Late st Contact Info) Description 01/31/2017 Abstract [facility] [address] [place] [address] Santos Fuentes MD Social History Tobacco Use Types Packs/Day Years Used Date Smoking Tobacco: Never Alcohol Use Standard Drinks/Week Comments No 0 (1 standard drink = 0.6 oz pur e alcohol) Comments Unknown Sex and Gender Information Value Date Recorded Sex Assigned at Female 09/01/2024 10:13 AM LEARNING AND DEVELOPMENT INTERN Legal Sex Female 10:21 PM CDT Gender Identity Not on file Sexual Orientation Not on file Occupation Industry Job Start Date Job End Date retired Not on file Not on file Not on file documented as of this encounter Plan of Treatment Upcoming Encounters Date Type Department Care Team (Late st Contact Info) Description 10/12/2024 3:45 PM LEARNING AND DEVELOPMENT INTERN Office Visit [facility] [place] [address] Stella Llanos MD [address] [place] [address] 12/07/2024 1:15 AM CDT Allied Health/[facility] [address] [place] [address] Christel Lu MD [address] [place] [address] 12/21/2024 2:30 PM CDT Office [facility] [address] [place] [address] Maciel Wang PATanishaC [address] [place] [address] 12/21/2024 2:30 PM CDT Allied Health/Nurse Visit [facility] [address] [place] [address] Christel Lu MD [address] [place] [address] documented as of this encounter Visit Diagnoses Not on filedocumented in this encounter Additional Health Concerns Infection Onset Date Last Indicated Resolved Time COVID-19 Rule Out 04/24/2022 04/24/2022 04/24/2022 4:06 AM CDT documented as of this encounter Care Teams Pharmaceutical Sales Representative Relationship Specialty Start Date End Date Toy Warren MD [address] [place], [place] [id number] PCP - General INTERNAL MEDICINE 02/06/17 06/10/17 Gino Meyer MD [address] [place] [address] PCP - General INTERNAL MEDICINE 06/11/17 Santos Fuentes MD [address] [place] [address] [place] Echocardiography Technologist CARDIOVASCULAR DISEASE 02/06/17 08/31/24 Shana Adams NP [address] [place] [address] Referring Physician Nurse Practitioner [facility] 02/27/23 Christel Lu MD [address] [place] [address] EP Echocardiography Technologist CLINICAL CARDIAC ELECTROPHYSIOLOGY 06/12/23 documented as of this encounter
--- OUTSIDE RECORDS SUMMARY | 2024-10-01 20:03 | XMS_ITS | Encounter Summary ---
Author Organization [facility] Address [facility] [place] [address] Care Team Providers Care Commercial Credit Lead Name Role Phone Gino Meyer MD Primary Care Provider [phone] Christel Lu MD Unavailable Reason for Visit * Reason Onset Date Comments Appointment Request 09/30/2024 Encounter Details Date Type Department Care Team ([facility] st Contact Info) Description 09/30/2024 Telephone [facility] [address] [place] [address] Christel Lu MD [address] [place] [address] Appointment Request Social History Tobacco [...] Sex Assigned at Female 09/01/2024 10:13 AM MANAGER SOCIAL Legal Sex Female 10:21 PM CDT Gender [...] documented in this encounter Progress Notes * aLla Rich - 09/30/2024 10:02 AM CST Scheduled 3-4 mo f/u and in clinic dvc with CEM on 12/21/24 at 2:30 pm. Reminder letter mailed. GER SOCIAL documented in this encounter Plan of Treatment Upcoming Encounters Date Type Department Care Team (Late st Contact Info) Description 10/12/2024 3:45 PM MANAGER SOCIAL Office Visit [facility] [place] [address] Stella Llanos MD [address] [place] [address] 12/07/2024 1:15 AM CDT Allied Health/Nurse Visit [facility] [address] [place] [address] Christel Lu MD [address] [place] [address] 12/21/2024 2:30 PM CDT Office Visit [facility] [address] [place] [address] Maciel Wang PA-C [address] [place] [address] 12/21/2024 2:30 PM CDT Allied Health/Nurse Visit [facility] [address] [place] [address] Christel Lu MD [address] [place] [address] documented as of this encounter Goals Goal Patient Goal Type Associated Problems Recent Progress Patient-Stated? Author Safety Patient/family will have appropriate support at home upon discharge Lifestyle No Merissa Santiago RN Safety Patient/family will have appropriate support at home upon discharge Lifestyle No Elina Lambert, RN documented as of this encounter Visit Diagnoses Not on filedocumented in this encounter Care Teams Commercial Credit Lead Relationship Specialty Start Date End Date Gino Meyer MD [address] [place] [address] PCP - General INTERNAL MEDICINE 06/11/17 Christel Lu MD [address] [place] [address] EP Sample Clerk CLINICAL CARDIAC ELECTROPHYSIOLOGY 06/12/23 documented as of this encounter
[2024-10-01 20:05] VITALS: BP 96/58; PULSE 79; RESP 16; O2SAT 94
[2024-10-01 20:05] LABS: Alanine Aminotransferase 15 U/L (14-59); Alkaline Phosphatase 113 U/L (46-116); Anion Gap 11 mmol/L (4-12); Aspartate Amino Transferase 24 U/L (15-37); Bilirubin,Total 0.7 mg/dL (0.00-1.00); Blood Urea Nitrogen 53 mg/dL (7-18); Calcium 8.6 mg/dL (8.5-10.1); Carbon Dioxide 34 mmol/L (21-32); Chloride 90 mmol/L (98-108); Estimated CRCL calculation 15 ml/min; Estimated Glomerular Filt Rate 19; Glucose 131 mg/dL (70-99); Osmolality Calculated 296 mOsm/kg (285-295); Potassium 3.1 mmol/L (3.5-5.1); Sodium 135 mmol/L (136-145); Total Protein 6.8 g/dL (6.4-8.2)
--- NOTE | 2024-10-01 20:06 | PC.NURSE ---
PATIENT RESTING ON STRETCHER. SON AT HER SIDE. CALL LIGHT IN REACH. DENIES ANY OTHER ISSUES AT THIS TIME.
--- NOTE | 2024-10-01 20:15 | PC.NURSE ---
WAITING ON CT READINGS TO COME BACK BEFORE GIVING PO MEDICATIONS, SO PATIENT CAN BE SAT UP
[2024-10-01 20:16] VITALS: BP 93/58; PULSE 81; RESP 16; O2SAT 95
--- NOTE | 2024-10-01 20:25 | PC.NURSE ---
DR QUACH IS AWARE OF CURRENT VITAL SIGNS.
--- NOTE | 2024-10-01 20:30 | PC.NURSE ---
C COLLAR REMOVED PER DR QUACH REQUEST. PATIENT HAS BEEN SAT UP. WOUND TO BACK OF HEAD CLEANSED WITH WOUND CLEANSER. LACERATION FOUND. CONTROLLED BLEEDING.
[2024-10-01] MEDS: ACETAMINOPHEN 500 MG TABLET 1000 MG PO (20:40)
[2024-10-01] MEDS: POTASSIUM BICARBONATE 25 MEQ TABEF 50 MEQ PO (20:40)
--- NOTE | 2024-10-01 20:41 | ED.HEATRA ---
HPI - Head Injury General Chief complaint: Head Injury Stated complaint: HEAD INJURY Time Seen by Provider: 10/01/24 19:23 Source: patient Mode of arrival: ambulatory Limitations: no limitations History of Present Illness HPI Narrative: This is a 84-year-old female with history of CHF had a fall at the assisted living causing a laceration to the posterior scalp approximately 2cm in length mildly gaping currently not bleeding no other injuries noted C-collar was placed, there was no fever chills no shortness of breath mild headache with no blurry vision no nausea vomiting. MD Complaint: head injury Onset (ago): hour(s) Arrival Conditions: C-spine immobilization present Mechanism of Injury: fall Place: other Location of injury: occipital Severity: mild Related Data Home Medications ?Medication ?Instructions ?Recorded ?Confirmed ?Last Taken ?Type atorvastatin 10 mg tablet 10 mg PO DAILY 11/13/22 10/01/24 04/03/24 20:00 History montelukast 10 mg tablet 10 mg PO DAILY 11/13/22 10/01/24 04/03/24 20:00 History spironolactone 25 mg tablet 25 mg PO BID 11/13/22 10/01/24 04/04/24 08:00 History aspirin 81 mg tablet 81 mg PO DAILY 11/23/23 10/01/24 04/04/24 08:00 History sacubitril 24 mg-valsartan 26 mg 1 tablet PO BID 11/23/23 10/01/24 04/04/24 08:00 History tablet (Entresto) empagliflozin 10 mg tablet 10 mg PO DAILY 01/25/24 10/01/24 04/04/24 08:00 History (Jardiance) gabapentin 100 mg capsule 300 mg PO BID 04/05/24 10/01/24 04/04/24 17:00 History anastrozole 1 mg tablet 1 mg PO DAILY 08/28/24 10/01/24 Unknown History apixaban 5 mg tablet (Eliquis) 5 mg PO BID 08/28/24 10/01/24 Unknown History duloxetine 30 mg capsule,delayed 30 mg PO BID 08/28/24 10/01/24 Unknown History release sprinkle hydrocodone 5 mg-acetaminophen 325 1 tablet PO Q8H PRN pain 08/28/24 10/01/24 Unknown History mg tablet acetaminophen 650 mg 650 mg PO Q8H PRN pain 10/01/24 10/01/24 Unknown History tablet,extended release (Tylenol Arthritis Pain) metolazone 2.5 mg tablet 2.5 mg PO DAILY DIURETIC 10/01/24 10/01/24 Unknown History Allergies Allergy/AdvReac Type Severity Reaction Status Date / Time TARA Inhibitors AdvReac Mild Cough Verified 10/01/24 19:33 Review of Systems Review of Systems: All systems reviewed & are unremarkable except as noted in HPI and below PMFSH Past Medical History Medical History Hyperlipidemia Chronic kidney disease Nonischemic cardiomyopathy Echocardiogram 2014 demonstrate EF 30 35% with severe generalized left globe ventricular systolic dysfunction Hip osteoarthritis 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 Placed due to nonischemic cardiomyopathy and paroxysmal narrow complex arrhythmia H/O mastectomy Family History Family History Father , at age 81 Family history of coronary artery disease Social History Social History Social History: She was for 56 years but has been since approximately 2016. 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 She raised 3 children. Her oldest son of prostate cancer within the last year. Code status: DNR/DNI per patient request and confirmed with prior the records Surrogate decision maker: Son Smoking status: Never smoker Second hand tobacco smoke exposure: No Alcohol intake: never Substance use: never Do You Feel Safe in your Home?: Yes Lack of Transportation: No Lack of Food: Never True Current Housing: I Have Housing Concerned About Future Housing: No Difficulty Paying Gas/Electric Bills: No Difficulty Paying for Meds: No Currently Unemployed: No Education: High School Diploma/GED Difficulty w/ Childcare or Family Care: No Spiritual care concerns: No Exam Const: General: healthy appearing and no acute distress Nutritional Appearance: well nourished Orientation/consciousness: patient oriented x3 Limitations: no limitations HENMT: Head: normal to inspection Eyes: Conjunctivae: conjunctivae normal Pupils: Equal, round and reactive pupils present Neck: Neck: normal visual inspection, no lymphadenopathy and no meningeal signs Resp: Effort & Inspection: normal respiratory effort Auscultation: clear to auscultation bilaterally Cardio: Rate: regular rate Rhythm: regular rhythm GI: GI Palp: Yes Soft to palpation Skin: Wounds: wounds noted Neuro: General: patient oriented x3, no meningeal signs and no focal motor deficits Course Course Emergency Course: CT scan of the head and cervical spine show no acute abnormalities patient had low potassium and replace with KCl patient received a dose of Tylenol. Vital Signs Vital signs: Vital Signs Temperature 36.8 C 10/01/24 19:25 Pulse Rate 87 10/01/24 19:25 Respiratory Rate 18 10/01/24 19:25 Blood Pressure 99/73 L 10/01/24 19:25 Pulse Oximetry 97 10/01/24 19:25 Oxygen Delivery Room Air 10/01/24 19:25 Temperature 36.8 C 10/01/24 19:25 Pulse Rate 81 10/01/24 20:16 Respiratory Rate 16 10/01/24 20:16 Blood Pressure 93/58 L 10/01/24 20:16 Pulse Oximetry 95 10/01/24 20:16 Oxygen Delivery Room Air 10/01/24 20:16 Procedures Laceration Laceration 1: Date: 10/01/24 Time: 20:44 Site: scalp Size (cm): 2 Description: linear ====== Skin Level ====== Skin layer closed with: hanny Number of sutures: 2 ====== Subcutaneous Layer ====== ====== Muscle Layer ====== ====== Tendon Layer ====== MDM - Head Injury Lab Data 10/01/24 19:39 10/01/24 19:39 Labs: Lab Results 10/01/24 Range/Units 19:39 WBC 9.4 (4.8-10.8) K/mm3 RBC 4.68 (4.20-5.40) M/mm3 Hgb 12.2 (11.7-13.8) g/dL Hct 40.7 (35.0-42.0) % MCV 87.0 (78.0-102.0) fL MCH 26.1 L (27.0-31.0) pg MCHC 30.0 L (32-36) g/dL RDW 17.6 H (11.6-14.4) % Plt Count 259 (150-420) K/mm3 MPV 10.9 (9.2-11.8) fl Immature Gran % (Auto) 0.5 H (0.0-0.0) % Neut % (Auto) 75.8 H (50.0-70.0) % Lymph % (Auto) 7.7 L (18.0-42.0) % [place] % (Auto) 11.2 H (2.0-11.0) % Eos % (Auto) 4.3 (1.0-6.0) % Baso % (Auto) 0.5 (0.0-1.0) % Lymph # (Auto) 0.72 L (1.10-4.50) K/mm3 [place] # (Auto) 1.05 H (0.10-0.90) K/mm3 Eos # (Auto) 0.40 (0.02-0.50) K/mm3 Baso # (Auto) 0.05 (0.00-0.10) K/mm3 Abs Immat Gran (auto) 0.05 H (0.00-0.00) K/mm3 Absolute Neuts (auto) 7.13 (1.70-7.20) K/mm3 Absolute Nucleated RBC 0.00 (0.00-0.00) K/mm3 Nucleated RBC % 0.0 (0-0.0) % Sodium 135 L (136-145) mmol/L Potassium 3.1 L (3.5-5.1) mmol/L Chloride 90 L (98-108) mmol/L Carbon Dioxide 34 H (21-32) mmol/L Anion Gap 11 (4-12) mmol/L BUN 53 H (7-18) mg/dL Creatinine 2.45 H (0.55-1.02) mg/dL Estim Creat Clear Calc 15 ml/min Estimated GFR 19 L (59 - ) Glucose 131 H (70-99) mg/dL Calculated Osmolality 296 H (285-295) mOsm/kg Calcium 8.6 (8.5-10.1) mg/dL Total Bilirubin 0.7 (0.00-1.00) mg/dL AST 24 (15-37) U/L ALT 15 (14-59) U/L Alkaline Phosphatase 113 (46-116) U/L Total Protein 6.8 (6.4-8.2) g/dL Albumin 3.0 L (3.4-5.0) g/dL Critical Care Time Critical Care Time Critical Care Time: No Discharge Plan Discharge Clinical Impression: Laceration Head injury Qualifiers: Encounter type: initial encounter Qualified Code(s): S09.90XA - Unspecified injury of head, initial encounter Patient Disposition: Home, Self-Care Condition: Stable Instructions: Antibiotic Form, Laceration (ED), Head Injury (ED) Additional Instructions: advised take Tylenol as needed for headache, follow with primary in 1 week for staple removal and hold her nighttime dose of Coreg for blood pressure less than 100 systolic. Patient Language: Tunisian Prescriptions: No Action atorvastatin 10 mg Tablet 10 mg PO DAILY spironolactone 25 mg Tablet 25 mg PO BID Rx Instructions: Morning and noon montelukast 10 mg Tablet 10 mg PO DAILY aspirin 81 mg Tablet 81 mg PO DAILY sacubitril-valsartan [Entresto] 24-26 mg tablet 1 tablet PO BID Jardiance 10 mg tablet 10 mg PO DAILY furosemide 40 mg Tablet 40 mg PO BID Qty: 60 0RF duloxetine 30 mg capsule, delayed rel sprinkle 30 mg PO BID Eliquis 5 mg tablet 5 mg PO BID anastrozole 1 mg tablet 1 mg PO DAILY hydrocodone-acetaminophen 5-325 mg tablet 1 tablet PO Q8H PRN (Reason: pain) acetaminophen [Tylenol Arthritis Pain] 650 mg tablet extended release 650 mg PO Q8H PRN (Reason: pain) metolazone 2.5 mg tablet 2.5 mg PO DAILY gabapentin 100 mg capsule 300 mg PO BID carvedilol [Coreg] 12.5 mg Tablet 12.5 mg PO Q12HR Qty: 90 0RF Follow-up/Referrals: Gino Meyer MD [Primary Care Provider] -
[2024-10-01 20:46] VITALS: BP 95/60; PULSE 72; RESP 16; O2SAT 98
--- NOTE | 2024-10-01 20:47 | PC.NURSE ---
RODRIGUEZ X [address] QUACH. PATIENT IS DRINKING POTASSIUM IN WATER. TYLENOL WAS GIVEN FOR PAIN. SON IS AT THE BEDSIDE
--- NOTE | 2024-10-01 20:47 | PC.NURSE ---
INCONTINENT OF BOWEL. PATIENT DEPENDS CHANGED. REPOSITIONED FOR COMFORTL
--- NOTE | 2024-10-01 20:51 | PC.NURSE ---
REPORT CALLED TO RESIDENTIAL AND GIVEN REPORT TO NURSE. INSTRUCTED TO NOT HAVE NIGHT TIME DOSE OF COREG PER DR QUACH
--- NOTE | 2024-10-01 20:56 | PC.NURSE ---
PATIENT ASSISTED UP TO BEDSIDE COMMODE BY AVRIL IBARRA. SON SIGNED DISCHARGE INSTRUCTIONS. PATIENT IS ALERT AND ORIENTED X 3.
== END 2024-10-01 20:58 ==
PROVIDERS: Emergency Provider Emergency Medicine; PCP Internal Medicine
DX: S01.01XA Laceration without foreign body of scalp, initial encounter (principal); I25.10 Atherosclerotic heart disease of native coronary artery without angina pectoris; I50.9 Heart failure, unspecified; N18.9 Chronic kidney disease, unspecified; W18.30XA Fall on same level, unspecified, initial encounter
CPT/HCPCS: 12001; 36415; 70450; 72125; 80053; 85025; 99284; A9270; L0150

== ENCOUNTER 2024-10-05 14:41 | Outpatient (NON) | payer MEDICARE, SELFPAY ==
[2024-10-05 14:54] LABS: Hematocrit 39.1 % (35.0-42.0); Hemoglobin 11.5 g/dL (11.7-13.8); Mean Corpuscular HGB Conc 29.4 g/dL (32-36); Mean Corpuscular Hemoglobin 25.8 pg (27.0-31.0); Mean Corpuscular Volume 87.7 fL (78.0-102.0); Mean Platelet Volume 10.7 fl (9.2-11.8); Platelet Count Result 280 K/mm3 (150-420); Red Blood Count 4.46 M/mm3 (4.20-5.40); Red Cell Distribution Width 18.2 % (11.6-14.4); White Blood Count 8.1 K/mm3 (4.8-10.8)
[2024-10-05 15:16] LABS: Alanine Aminotransferase 20 U/L (14-59); Albumin Level 3.1 g/dL (3.4-5.0); Alkaline Phosphatase 103 U/L (46-116); Anion Gap 9 mmol/L (4-12); Aspartate Amino Transferase 27 U/L (15-37); Bilirubin,Total 0.7 mg/dL (0.00-1.00); Blood Urea Nitrogen 24 mg/dL (7-18); Calcium 9.1 mg/dL (8.5-10.1); Carbon Dioxide 30 mmol/L (21-32); Chloride 99 mmol/L (98-108); Digoxin 0.4 ng/mL (0.9-2.0); Estimated Glomerular Filt Rate 43; Glucose 135 mg/dL (70-99); Osmolality Calculated 292 mOsm/kg (285-295); Potassium 4.5 mmol/L (3.5-5.1); Sodium 138 mmol/L (136-145)
[2024-10-05 15:40] LABS: NT Pro B Type Natriuretic Pept 12480 pg/mL (0-450)
--- OUTSIDE RECORDS SUMMARY | 2024-10-05 17:28 | XMS_ITS | Encounter Summary ---
Author Organization [facility] Address [facility] [place] [address] Care Team Providers Care Hat Model Name Role Phone Santos Fuentes MD Unavailable UnavailGino Mena MD Primary Care Provider [phone] Shana Adams NP Unavailable Unavailable Christel Lu MD Unavailable Encounter Details Date Type Department Care Team (Late st Contact Info) Description 12/06/2022 Hospital Follow-up Call [facility] [address] [place] [address] Stephie Arreola, RN Social History [...] Sex Assigned at Female 09/01/2024 10:13 AM HAIR CLIPPER POWER Legal Sex Female 10:21 PM CDT Gender [...] st Contact Info) Description 10/12/2024 3:45 PM HAIR CLIPPER POWER Office Visit [facility] [place] [phone] Stella Llanos MD [address] [place] [address] 12/07/2024 1:15 AM CDT Allied Health/Nurse Visit [facility] [address] [place] [phone] Christel Lu MD [address] [place] [phone] 308- 12/21/2024 2:30 PM CDT Office Visit [facility] [address] [place] [phone] Maciel Wang PATanishaC [address] [place] [phone] 114- 12/21/2024 2:30 PM CDT Allied Health/Nurse Visit [facility] [address] [place] [phone] Christel Lu MD [address] [place] [phone] documented as of this encounter Goals Goal Patient Goal Type Associated Problems Recent Progress Patient-Stated? Author Safety Patient/family will have appropriate support at home upon discharge Lifestyle No Merissa Santiago, RN Safety Patient/family will have appropriate support at home upon discharge Lifestyle No Elina Lambert, RN documented as of this encounter Visit Diagnoses Not on filedocumented in this encounter Care Teams Hat Model Relationship Specialty Start Date End Date Gino Meyer MD [address] [place] [address] PCP - General INTERNAL MEDICINE 06/11/17 Santos Fuentes MD [place] [employer] CARDIOVASCULAR DISEASE 02/06/17 08/31/24 Shana Adams NP [address] [place] [address] Referring Physician Nurse Practitioner Family 02/27/23 Christel Lu MD [address] [place] [phone] [employer] CLINICAL CARDIAC ELECTROPHYSIOLOGY 06/12/23 documented as of this encounter
--- OUTSIDE RECORDS SUMMARY | 2024-10-05 17:28 | XMS_ITS | Clinical Summary ---
Author Organization [facility] Address [address] [place] [address] Care Team Providers Care Financial Institution Vice President Name Role Phone Gino Meyer MD Primary Care Provider [phone] Christel Lu MD Unavailable Allergies No known active allergies [...] carvedilol (COREG) 12.5 MG tabletIndicatio ns:Atrial fibrillation ([facility]) Take 1 tablet (12.5 mg total) by mouth 2 (two) times daily. 60 tablet 08/11/20 24 2024 Discontinued metOLazone (ZAROXOLYN) 2.5 MG tablet Take 1 tablet (2.5 mg total) by mouth daily. Pt should take metolazone 30 minutes before taking Furosamide in the morning. 30 tablet 09/22/19 25 2024 Discontinued(R eorder) Active Problems Problem Noted Date Diagnosed Date Breast cancer ([facility]) 07/23/2023 S/P coronary artery stent placement 03/18/2021 Mixed hyperlipidemia 07/10/2017 Stage 2 chronic kidney disease 06/14/2014 Non-ischemic cardiomyopathy ([facility]) AICD (automatic cardioverter/defibrillator) pres ent Hypertension Coronary artery disease Systolic heart failure ([facility]) Resolved Problems Problem Noted Date Diagnosed Date Resolved Date Hypotension due to hypovolemia 04/25/2022 06/13/2023 Obesity (BMI 30-39.9) 07/10/20172021 Encounters Date Type Department Care Team Description 10/02/2024 Telephone [facility] [address] [place] [address] Jaida Yee APRN, QUIRK SANDER-C Lab Results; Lab Order 09/30/2024 Telephone [facility] [address] [place] [address] Christel Lu MD Appointment Request 09/24/2024 Telephone [facility] [address] [place] [address] Jaida Yee APRN, QUIRK SANDER-C Follow Up Call 09/24/2024 Orders Only [facility] [address] [place] [address] Heidy Landers LPN 09/22/2024 Abstract [facility] [address] [place] [address] Jaida Yee, JAYDEN, QUIRK SANDER-C 09/22/2024 Telephone [facility] [address] [place] [address] Jaida Yee, JAYDEN, QUIRK SANDER-C Other 09/16/2024 10:39 AM DESK PEN SET ASSEMBLER - 09/16/2024 11:59 PM DESK PEN SET ASSEMBLER Hospital Encounter [facility] [address] [place] [address] Barbi Day, PLANNING MANAGEMENT IT SPECIALIST Discharge Disposition: Home or Self Care (Routine Discharge) 09/16/2024 Travel 09/16/2024 Telephone [facility] [address] [place] [address] Jaida Yee, JAYDEN, QUIRK SANDER-C Question 09/10/2024 Telephone [facility] [address] [place] [address] Jaida Yee APRN, QUIRK SANDER-C Follow Up Call 09/10/2024 Abstract [facility] [address] [place] [address] Abstract, Doc Pccl 09/08/2024 11:00 AM DESK PEN SET ASSEMBLER Office Visit [facility] [address] [place] [address] Jaida Yee APRN, QUIRK SANDER-C Follow Up; CHF 09/08/2024 Telephone [facility] [address] [place] [address] Stella Llanos MD Appointment Request 09/08/2024 Telephone [facility] [address] [place] [address] Jaida Yee APRN, QUIRK SANDER-C Referral 09/08/2024 Travel 09/01/2024 11:15 AM DESK PEN SET ASSEMBLER Allied Health/Nurse [facility] [address] [place] [address] Christel Lu MD 09/01/2024 11:15 AM DESK PEN SET ASSEMBLER Office Visit [facility] [address] [place] [address] Christel Lu MD Follow Up; Cardiac Device Management; Atrial Fibrillation 09/01/2024 Orders Only [facility] [address] [place] [address] Jaida Yee APRN, QUIRK SANDER-C 09/01/2024 Telephone [facility] [address] [place] [address] Jaida Yee APRN, QUIRK SANDER-C Appointment Request 09/01/2024 Travel 08/31/2024 Scan [facility] [address] [place] [address] Scanned, Doc Pccl 08/31/2024 Orders Only [facility] [address] [place] [address] Christel Lu MD 08/31/2024 Telephone [facility] [address] [place] [address] Christel Lu MD Record Request 08/28/2024 Scan [facility] [address] [place] [address] Scanned, Doc Pccl ECG (SCAN) 08/28/2024 Scan [facility] [address] [place] [address] Scanned, Doc Pccl 08/28/2024 Telephone [facility] [address] [place] [address] Christel Lu MD Record Request 08/25/2024 Telephone [facility] [address] [place] [address] [phone] Christel Lu MD Reschedule 08/20/2024 Orders Only [facility] [address] [place] [address] Christel Lu MD 08/10/2024 Telephone [facility] [address] [place] [address] [phone] Christel Lu MD Appointment Request from Last 3 Months [...] place to sleep or slept in a skilled nursing (including now)? Yes 11/29/2022 Comments No Sex and Gender Information Value Date Recorded Sex Assigned at Female 09/01/2024 10:13 AM DESK PEN SET ASSEMBLER Legal Sex Female 10:21 PM CDT Gender Identity Not on file Sexual Orientation Not on file Occupation Industry Job Start Date Job End Date retired Not on file Not on file Not on file Last Filed Vital Signs Vital Sign Reading Time Taken Comments Blood Pressure 110/80 09/08/2024 10:51 AM DESK PEN SET ASSEMBLER Pulse 112 09/08/2024 10:51 AM DESK PEN SET ASSEMBLER Temperature 36.8 C (98.2 F) 08/30/2023 12:39 PM DESK PEN SET ASSEMBLER Respiratory Rate 16 09/08/2024 10:51 AM DESK PEN SET ASSEMBLER Oxygen Saturation 94% 09/08/2024 10:51 AM DESK PEN SET ASSEMBLER Inhaled Oxygen Concentration - - Weight 87.5 kg (193 lb) 09/08/2024 10:51 AM DESK PEN SET ASSEMBLER Height 152.4 cm (5') 09/08/2024 10:51 AM DESK PEN SET ASSEMBLER Body Mass Index 37.69 09/08/2024 10:51 AM DESK PEN SET ASSEMBLER Plan of Treatment Upcoming Encounters Date Type Department Care Team (Late st Contact Info) Description 10/12/2024 3:45 PM DESK PEN SET ASSEMBLER Office Visit [facility] [place] [address] Stella Llanos MD [address] [place] [address] 12/07/2024 1:15 AM CDT Allied Health[facility] [address] [place] [address] Christel Lu MD [address] [place] [address] 12/21/2024 2:30 PM CDT [facility] [address] [place] [address] Maciel Wang, PA-C [address] [place] [address] 12/21/2024 2:30 PM CDT Allied Health/N[facility] [address] [place] [address] Christel Lu MD [address] [place] [address] Health Maintenance Due Date Last Done Comments [...] Lambert RN Medical Devices Implanted Type Area Sheet Combining Operator Device Identifier Shelf Expiration Date Model / Serial / Lot [employer] Vigilant Kishan Oliveira-08/30/2023 Implanted:Qty: 1 on 08/30/2023 by Christel Lu MD ICD [employer] 12/28/2024 [id number] / [id number] / Description:DX: NIC MRI Conditional under following conditions: Static magnetic field of 1.5 T or 3 T, Max spatial gradient field of 5000 Gauss/cm or less, Max slew rate 200 T/m/s , WHOLE BODY TERESO OF 2 W/KG OR LESS, HEAD TERESO 3.2 W/KG OR LESS , Supine or Prone only [employer] Ra-08/30/2023 Implanted:Qty: 1 on 08/30/2023 by Christel Lu MD Lead Implant [employer] 01/04/2025 [id number] / [id number] / [employer] Rv-08/30/2023 Implanted:Qty: 1 on 08/30/2023 by Christel Lu MD Lead Implant [employer] 04/08/2024 [id number] / [id number] / Cv Synergy Xd Jose-Lad-03/17/2 021 Implanted:02/18 by Russell Bentley MD (Quantity not on file) Stent Coronary LAD [employer] 10/05/2022 [id number] / / [id number] Cv Synergy Xd Jose-Rutherford-2020 Implanted:02/18 by Russell Bentley MD (Quantity not on file) Stent Coronary LAD [employer] 11/17/2022 [id number] / / [id number] Procedures Procedure Name Priority Date/Time Associated Diagnosis Comments BASIC METABOLIC PANEL Routine 09/24/2024 intermediate frame tender use of drug BASIC METABOLIC PANEL Routine 09/18/2024 prison use of drug BASIC METABOLIC PANEL Routine 09/09/2024 ELECTROCARDIOGRAM (NON MIDMARK ACQUIRED) Routine 09/01/2024 10:27 AM DESK PEN SET ASSEMBLER Atrial fibrillation, unspecified type ([facility]) AICD (automatic cardioverter/defibri llator) present COMPREHENSIVE METABOLIC PANEL Routine 08/31/2024 CBC, MANUAL DIFF Routine 08/31/2024 ECG GENERIC (SCAN ORDER) Routine 025 12:00 AM DESK PEN SET ASSEMBLER LIPID PANEL Routine 03/27/2021 10:35 AM CDT intermediate frame tender use of drug Hyperlipidemia, unspecified hyperlipidemia type [...] - 1.0 GFR ESTIMATE 27 09/24/2024 us POLLO Brand APRN LABORATORY Final Result * ELECTROCARDIOGRAM (09/01/2024 10:27 AM DESK PEN SET ASSEMBLER) 09/01/2024 10:2 7 AM DESK PEN SET ASSEMBLER Narrative [facility] - 09/07/2024 7:54 AM DESK PEN SET ASSEMBLER [facility] [address] [id number] Test Date: 2024-09-01 Pat Name: JENNIFER COATES Department: 105 Room: Gender: Female Electrical Repairer: GIO : 1940 Requested By: CHRISTEL LU Order Number: [id number] Nabor Lu Measurements Intervals [place] Rate: 91 P: 44 OK: 185 QRS: -54 QRSD: 115 T: 123 QT: 368 QTc: 455 Interpretive Statements SINUS RHYTHM LEFT AXIS DEVIATION MODERATE INTRAVENTRICULAR CONDUCTION DELAY ST DEVIATION AND MODERATE T-WAVE ABNORMALITY, CONSIDER LATERAL ISCHEMIA PEN SET ASSEMBLER Procedure Note Christel Lu MD - 09/07/2024 [address] [place] [address] Test Date: 2024-09-01 Pat Name: JENNIFER COATES Department: 105 Room: Gender: Female Electrical Repairer: GIO : 1940 Requested By: CHRISTEL LU Order Number: [id number] Nabor KYLE: Christel Lu Measurements Intervals [place] Rate: 91 P: 44 OK: 185 QRS: -54 QRSD: 115 T: 123 QT: 368 QTc: 455 Interpretive Statements SINUS RHYTHM LEFT AXIS DEVIATION MODERATE INTRAVENTRICULAR CONDUCTION DELAY ST DEVIATION AND MODERATE T-WAVE ABNORMALITY, CONSIDER LATERAL ISCHEMIA PEN SET ASSEMBLER us Christel Lu MD PROCEDURES-ORDERABLE NO CHARGE F inal Result [facility] * (ABNORMAL) COMPREHENSIVE METABOLIC PANEL (08/31/2024) SODIUM S/P/B 138 GLUCOSE 103 mg/dL AST 31 BUN 27 CREATININE S/P/B 1.23(A) 0.5 - 1.0 CALCIUM S/P/B 8.0 POTASSIUM S/P/B 3.8 CHLORIDE S/P/B 102 ALT 21 GFR ESTIMATE 42 Narrative Resulting Agency Comment [facility] us Default History Genericprovider LABORATORY Final Result * CBC, MANUAL DIFF (08/31/2024) WBC 7.4 HGB 10.8 HCT 35.8 PLT 231 Narrative Resulting Agency Comment [facility] us Default History Genericprovider LABORATORY Final Result * ECG (08/28/2024 12:00 AM DESK PEN SET ASSEMBLER) 08/28/2024 us Doc Pccl Scanned SCANNING Final Result [facility] ONBASE * LIPID PANEL (03/27/2021 10:35 AM CDT) Pathologist [facility] CHOLESTEROL 201 MG/DL 03/27/2021 11:16 AM CDT [facility] Comment:BORDERLINE HIGH: 200 -239 TRIGLYCERIDES 175 MG/DL 03/27/2021 11:16 AM CDT [facility] Comment:150-199 BORDERLINE H IGH HDL 56 >49 MG/DL 03/27/2021 11:16 AM CDT [facility] LDL (CALCULATED) 110 MG/DL 03/27/20 11:16 AM CDT [facility] Comment:100-129 NEAR OR ABOV E OPTIMAL VLDL CALCULATION 35 MG/DL 03/27/20 11:16 AM CDT [facility] Comment:REFERENCE RANGE NOT ESTABLISHED CHOL/HDL RATIO 3.6 03/27/2021 11:16 AM CDT [facility] Comment:REFERENCE RANGE NOT ESTABLISHED LDL/HDL 2.0 03/27/2021 11:16 AM CDT [facility] Comment:REFERENCE RANGE NOT ESTABLISHED NON HDL CHOLESTEROL 145 MG/DL 03/27/2021 11:16 AM CDT [facility] Comment:REFERENCE RANGE NOT ESTABLISHED 03/27/2021 10:3 5 AM CDT us Jaida Yee APRN QUIRK SANDERSanjiv LABORATORY Final Result [facility] [address] [place] [address], [id number] from Last 3 Months or Most Recently Relevant to Health Maintenance Insurance [facility] MEDICAID [facility] Member Subscriber Plan / Payer (Ef fective 2019-Present) Name:Jennifer Coates Relation to Subscriber:Self Name:Jennifer Coates Payer ID:[id number] (NAIC) Type:Not on file Address: [id number] [place] [id number] MEDICAID Advance Directives Documents on File Type Date Recorded Patient Animal Hospital Office Supervisor Expl anation Advance Directives and Living Will 04/21/2021 2:05 PM Moose Coates Advance Directives and Living Will 04/21/2021 2:05 [...] 1:31 PM 11/29/2022 4:09 PM Care Teams Financial Institution Vice President Relationship Specialty Start Date End Date Gino Meyer MD [address] [place] [address] PCP - General INTERNAL MEDICINE 06/11/17 Christel Lu MD [address] [place] [address] EP Packaging Technician CLINICAL CARDIAC ELECTROPHYSIOLOGY 06/12/23
--- OUTSIDE RECORDS SUMMARY | 2024-10-05 17:28 | XMS_ITS | Encounter Summary ---
Author Organization [facility] Address [facility] [place] [address] Care Team Providers Care Broadcast Operations Engineer Name Role Phone Santos Fuentes MD Unavailable Gino Knight MD Primary Care Provider [phone] Christel Lu MD Unavailable Reason for Visit * Reason Comments ECG (SCAN) Encounter Details Date Type Department Care Team (Late st Contact Info) Description 08/28/2024 Scan [facility] [address] [place] [address] Scanned, Doc Pccl ECG (SCAN) Social History Tobacco Use Types Packs/Day Years [...] to sleep or slept in a senior living (including now)? Yes 11/29/2022 Comments No Sex and Gender Information Value Date Recorded Sex Assigned at Female 09/01/2024 10:13 AM MULE OPERATOR Legal Sex Female 10:21 PM CDT Gender Identity Not on file Sexual Orientation Not on file Occupation Industry Job Start Date Job End Date retired Not on file Not on file Not on file documented as of this encounter Functional Status * Are you deaf or do you have serious difficulty hearing Answer Date of Assessment Author Status No 07/23/2023 6:28 AM MULE OPERATOR Saroj Matthews RN Active * Are you blind or do you have serious difficulty seeing, even when wearing glasses? Answer Date of Assessment Author Status No 07/23/2023 6:28 AM MULE OPERATOR Saroj Matthews RN Active * Do you have serious [...] st Contact Info) Description 10/12/2024 3:45 PM MULE OPERATOR Office Visit [facility] [place] [address] Stella Llanos MD [address] [place] [address] 12/07/2024 1:15 AM CDT Allied Health/Nurse Visit [facility] [address] [place] [address] Christel Lu MD [address] [place] [address] 12/21/2024 2:30 PM CDT Office Visit [facility] [address] [place] [address] Maciel Wang PA-C [address] [place] [address] 12/21/2024 2:30 PM CDT Allied Health/Nurse Visit [facility] [address] [place] [address] Christel Lu MD [address] [place] [address] documented as of this encounter Goals Goal Patient Goal Type Associated Problems Recent Progress Patient-Stated? Author Safety Patient/family will have appropriate support at home upon discharge Lifestyle No Merissa Santiago, RN Safety Patient/family will have appropriate support at home upon discharge Lifestyle No Elina Lambert, RN documented as of this encounter Procedures Procedure Name Priority Date/Time Associated Diagnosis Comments ECG GENERIC (SCAN ORDER) Routine 08/28/2024 12:00 AM MULE OPERATOR documented in this encounter Results * ECG (08/28/2024 12:00 AM MULE OPERATOR) 08/28/2024 us Doc Pccl Scanned SCANNING Final Result Performing Organization Address City/State/[facility] Co de Phone Number [facility] ON[facility] documented in this encounter Visit Diagnoses Not on filedocumented in this encounter Care Teams Broadcast Operations Engineer Relationship Specialty Start Date End Date Gino Meyer MD [address] [place] [address] PCP - General INTERNAL MEDICINE 06/11/17 Santos Fuentes MD [place] CARDIOVASCULAR DISEASE 02/06/17 08/31/24 Christel Lu MD [address] [place] [address] [place] CLINICAL CARDIAC ELECTROPHYSIOLOGY 06/12/23 documented as of this encounter
--- OUTSIDE RECORDS SUMMARY | 2024-10-05 17:28 | XMS_ITS | Encounter Summary ---
Author Organization [facility] Address [facility] [place] [address] Care Team Providers Care Putty Glazer Name Role Phone Toy Warren MD Primary Care Provider [phone] Santos Fuentes MD Unavailable UnavailGino Mena MD Primary Care Provider [phone] Shana Adams NP Unavailable Unavailable Christel Lu MD Unavailable Encounter Details Date Type Department Care Team (Late st Contact Info) Description 03/06/2017 Abstract [facility] [address] [place] [address] Santos Fuentes MD Social History Tobacco Use Types Packs/Day Years Used Date Smoking Tobacco: Never Alcohol Use Standard Drinks/Week Comments No 0 (1 standard drink = 0.6 oz pur e alcohol) Comments Unknown Sex and Gender Information Value Date Recorded Sex Assigned at Female 09/01/2024 10:13 AM BUSINESS MACHINE MECHANIC Legal Sex Female 10:21 PM CDT Gender Identity Not on file Sexual Orientation Not on file Occupation Industry Job Start Date Job End Date retired Not on file Not on file Not on file documented as of this encounter Plan of Treatment Upcoming Encounters Date Type Department Care Team (Late st Contact Info) Description 10/12/2024 3:45 PM BUSINESS MACHINE MECHANIC Office Visit [facility] [place] [address] Stella Llanos MD [address] [place] [address] 12/07/2024 1:15 AM CDT [facility] [address] [place] [address] Christel Lu MD [address] [place] [address] 12/21/2024 2:30 PM CDT [facility] [address] [place] [address] Maciel Wang PATanishaC [address] [place] [address] 12/21/2024 2:30 PM CDT Allied Health/Nurse Visit [facility] [address] [place] [address] Christel Lu MD [address] [place] [address] documented as of this encounter Visit Diagnoses Not on filedocumented in this encounter Additional Health Concerns Infection Onset Date Last Indicated Resolved Time COVID-19 Rule Out 04/24/2022 04/24/2022 04/24/2022 4:06 AM CDT documented as of this encounter Care Teams Putty Glazer Relationship Specialty Start Date End Date Toy Warren MD [address] [place], [place] [phone] PCP - General INTERNAL MEDICINE 02/06/17 06/10/17 Gino Meyer MD [address] [place] [address] PCP - General INTERNAL MEDICINE 06/11/17 Santos Fuentes MD [address] [place] [address] [place] Electronic Operator CARDIOVASCULAR DISEASE 02/06/17 08/31/24 Shana Adasm NP [address] [place] [address] Referring Physician Nurse Practitioner [facility] 02/27/23 Christel Lu MD [address] [place] [address] EP Electronic Operator CLINICAL CARDIAC ELECTROPHYSIOLOGY 06/12/23 documented as of this encounter
--- OUTSIDE RECORDS SUMMARY | 2024-10-05 17:28 | XMS_ITS | Encounter Summary ---
Author Organization [facility] Address [facility] [place] [address] Care Team Providers Care Real Estate Utilization Officer Name Role Phone Santos Fuentes MD Unavailable UnavailGino Mena MD Primary Care Provider [phone] Shana Adams NP Unavailable Unavailable Christel Lu MD Unavailable Encounter Details Date Type Department Care Team (Late Contact Info) Description 02/15/2021 Abstract [facility] [address] [place] [address] Santos Fuentes MD Social History Tobacco Use Types Packs/Day Years Used Date Smoking Tobacco: Never Smokeless Tobacco: Never Alcohol Use Standard Drinks/Week Comments No 0 (1 standard drink = 0.6 oz pur e alcohol) Comments Unknown Sex and Gender Information Value Date Recorded Sex Assigned at Female 09/01/2024 10:13 AM STRETCHING MACHINE OPERATOR Legal Sex Female 10:21 PM CDT [...] (Late Contact Info) Description 10/12/2024 3:45 PM STRETCHING MACHINE OPERATOR Office [facility] [place] [address] Stella Llanos MD [address] [place], [place] [address] 12/07/2024 1:15 AM CDT Allied Health/Nurse Visit [facility] [address] [place] [address] Christel Lu MD [address] [place] [address] 12/21/2024 2:30 PM CDT Office Visit [facility] [address] [place] [address] Maciel Wang, PATanishaC [address] [place] [address] 12/21/2024 2:30 PM CDT Allied Health/Nurse Visit [facility] [address] [place] [address] Christel Lu MD [address] [place] [address] documented as of this encounter [...] documented as of this encounter Care Teams Real Estate Utilization Officer Relationship Specialty Start Date End Date Gino Meyer MD [address] [place] [address] PCP - General INTERNAL MEDICINE 06/11/17 Santos Fuenets MD [place] Injection Molding Machine Setter CARDIOVASCULAR DISEASE 02/06/17 08/31/24 Shana Adams NP [address] [place] [address] Referring Physician Nurse Practitioner Family 02/27/23 Christel Lu MD [address] [place] [address] EP Injection Molding Machine Setter CLINICAL CARDIAC ELECTROPHYSIOLOGY 06/12/23 documented as of this encounter
--- OUTSIDE RECORDS SUMMARY | 2024-10-05 17:28 | XMS_ITS | Encounter Summary ---
Author Organization [facility] Address [facility] [place] [address] Care Team Providers Care Advertising Display Rotator Name Role Phone Toy Warren MD Primary Care Provider [phone] Santos Fuentes MD Unavailable UnavailGino Mena MD Primary Care Provider [phone] Shana Adams NP Unavailable Unavailable Christel Lu MD Unavailable Encounter Details Date Type Department Care Team (Late st Contact Info) Description 01/31/2017 Abstract [facility] [address] [place] [address] Santos Fuentes MD Social History Tobacco Use Types Packs/Day Years Used Date Smoking Tobacco: Never Alcohol Use Standard Drinks/Week Comments No 0 (1 standard drink = 0.6 oz pur e alcohol) Comments Unknown Sex and Gender Information Value Date Recorded Sex Assigned at Female 09/01/2024 10:13 AM PRIVATE ADVISOR Legal Sex Female 10:21 PM CDT Gender Identity Not on file Sexual Orientation Not on file Occupation Industry Job Start Date Job End Date retired Not on file Not on file Not on file documented as of this encounter Plan of Treatment Upcoming Encounters Date Type Department Care Team (Late st Contact Info) Description 10/12/2024 3:45 PM PRIVATE ADVISOR Office Visit [facility] [place] [address] Stella Llanos MD [address] [place] [address] 12/07/2024 1:15 AM CDT [facility] Health[facility] [address] [place] [address] Christel Lu MD [address] [place] [address] 12/21/2024 2:30 PM CDT [facility] [address] [place] [address] Maciel Wang PATanishaC [address] [place] [address] 12/21/2024 2:30 PM CDT Allied Health/Nurse Visit [facility] [address] [place] [address] Christel Lu MD [address] [place] [address] documented as of this encounter Visit Diagnoses Not on filedocumented in this encounter Additional Health Concerns Infection Onset Date Last Indicated Resolved Time COVID-19 Rule Out 04/24/2022 04/24/2022 04/24/2022 4:06 AM CDT documented as of this encounter Care Teams Advertising Display Rotator Relationship Specialty Start Date End Date Toy Warren MD [address] [place], [place] [phone] PCP - General INTERNAL MEDICINE 02/06/17 06/10/17 Gino Meyer MD [address] [place] [address] PCP - General INTERNAL MEDICINE 06/11/17 Santos Fuentes MD [address] [place] [address] [place] High Risk Case Manager CARDIOVASCULAR DISEASE 02/06/17 08/31/24 Shana Adams NP [address] [place] [address] Referring Physician Nurse Practitioner [facility] 02/27/23 Christel Lu MD [address] [place] [address] EP High Risk Case Manager CLINICAL CARDIAC ELECTROPHYSIOLOGY 06/12/23 documented as of this encounter
== END 2024-10-05 14:42 | disposition home or self-care (01) ==
LOC: CHSHH 14:43
PROVIDERS: PCP Internal Medicine; Visit Provider Internal Medicine
DX: I50.1 Left ventricular failure, unspecified (principal); M25.552 Pain in left hip; Z91.138 Patient's unintentional underdosing of medication regimen for other reason; R60.9 Edema, unspecified
CPT/HCPCS: 36415; 80053; 80162; 83735; 83880; 85027

== ENCOUNTER 2024-10-09 12:36 | Outpatient (NON) | payer MEDICARE, SELFPAY ==
--- OUTSIDE RECORDS SUMMARY | 2024-10-09 12:40 | XMS_ITS | Encounter Summary ---
Author Organization [facility] Address [facility] [place] [address] Care Team Providers Care Manager Math Name Role Phone Santos Fuentes MD Unavailable UnavailGino Mena MD Primary Care Provider [phone] Shana Adams NP Unavailable Unavailable Christel Lu MD Unavailable Encounter Details Date Type Department Care Team (Late st Contact Info) Description 02/15/2021 Abstract [facility] [address] [place] [address] Santos Fuentes MD Social History Tobacco Use Types Packs/Day Years Used Date Smoking Tobacco: Never Smokeless Tobacco: Never Alcohol Use Standard Drinks/Week Comments No 0 (1 standard drink = 0.6 oz pur e alcohol) Comments Unknown Sex and Gender Information Value Date Recorded Sex Assigned at Female 09/01/2024 10:13 AM PHARMACY INTAKE TECHNICIAN Legal Sex Female 10:21 PM CDT [...] Upcoming Encounters Date Type Department Care Team (Latest Contact Info) Description 10/12/2024 3:30 PM PHARMACY INTAKE TECHNICIAN Appointment [facility] [address] [place] [address] [place] [address] Stella Llanos MD [address] [place] [address] 10/12/2024 3:45 PM PHARMACY INTAKE TECHNICIAN Office Visit [facility] [place] [address] Stella Llanos MD [address] [place] [address] 12/07/2024 1:15 AM CDT Allied Health/Nurse Visit [facility] [address] [place] [address] Christel Lu MD [address] [place] [address] 12/21/2024 2:30 PM CDT Office Visit [facility] [address] [place] [address] Maciel Wang, PATanishaC [address] [place] [address] 12/21/2024 2:30 PM CDT Allied Health/Nurse Visit [facility] [address] [place] [address] Christel Lu MD [address] [place] [address] documented as of this encounter Procedures Procedure [...] documented as of this encounter Care Teams Manager Math Relationship Specialty Start Date End Date Gino Meyer MD [address] [place] [address] PCP - General INTERNAL MEDICINE 06/11/17 Santos Fuentes MD Patterson Final Inspector Balance Wheel CARDIOVASCULAR DISEASE 02/06/17 08/31/24 Shana Adams NP [address] [place] [address] Referring Physician Nurse Practitioner Family 02/27/23 Christel Lu MD [address] [place] [address] EP Final Inspector Balance Wheel CLINICAL CARDIAC ELECTROPHYSIOLOGY 06/12/23 documented as of this encounter
--- OUTSIDE RECORDS SUMMARY | 2024-10-09 12:40 | XMS_ITS | Clinical Summary ---
Author Organization [facility] Address [address] [place] [address] Care Team Providers Care Draughtsman Name Role Phone Gino Meyer MD Primary Care Provider [phone] Christel Mejia MD Unavailable Allergies No known [...] DAY 60 tablet 3 09/30/19 25 Active carvedilol (COREG) 12.5 MG tabletIndicatio ns:Atrial fibrillation (CMS/HCC HHS/HCC) Take 1 tablet (12.5 [...] Date Diagnosed Date Breast cancer ([facility]) 07/23/2023 S/P coronary artery stent placement 03/18/2021 Mixed hyperlipidemia 07/10/2017 Stage 2 chronic kidney disease 06/14/2014 Non-ischemic cardiomyopathy ([facility]) AICD (automatic cardioverter/defibrillator) pres ent Hypertension Coronary artery disease Systolic heart failure ([facility]) Resolved Problems Problem Noted Date Diagnosed Date Resolved Date Hypotension due to hypovolemia 04/25/2022 06/13/2023 Obesity (BMI 30-39.9) 07/10/20172021 Encounters Date Type Department Care Team Description 10/08/2024 Orders Only [facility] [address] [place] [address] Stella Llanos MD 10/07/2024 Telephone [facility] [address] [place] [address] Stella Llanos MD Appointment Reminder 10/02/2024 Telephone [facility] [address] [place] [address] Jaida Yee APRN, PLANNER-C Lab Results; Lab Order 09/30/2024 Telephone [facility] [address] [place] [address] Christel Mejia MD Appointment Request 09/24/2024 Telephone [facility] [address] [place] [address] Jaida Yee APRN, PLANNER-C Follow Up Call 09/24/2024 Orders Only [facility] [address] [place] [address] Heidy Landers LPN 09/22/2024 Abstract [facility] [address] [place] [address] Jaida Yee APRN, PLANNER-C 09/22/2024 Telephone [facility] [address] [place] [address] Jaida Yee APRN, PLANNER-C Other 09/16/2024 10:39 AM PLASTIC EXTRUDING MACHINE OPERATOR - 09/16/2024 11:59 PM PLASTIC EXTRUDING MACHINE OPERATOR Hospital Encounter [facility] [address] [place] [address] Barbi Day, SPLITTING MACHINE TENDER Discharge Disposition: Home or Self Care (Routine Discharge) 09/16/2024 Travel 09/16/2024 Telephone [facility] [address] [place] [address] Jaida Yee APRN, PLANNER-C Question 09/10/2024 Telephone [facility] [address] [place] [address] Jaida Yee APRN, PLANNER-C Follow Up Call 09/10/2024 Abstract [facility] [address] [place] [address] Abstract, Doc Pccl 09/08/2024 11:00 AM PLASTIC EXTRUDING MACHINE OPERATOR Office Visit [facility] [address] [place] [address] Jaida Yee APRN, PLANNER-C Follow Up; CHF 09/08/2024 Telephone [facility] [address] [place] [address] Stella Llanos MD Appointment Request 09/08/2024 Telephone [facility] [address] [place] [address] Jaida Yee APRN, PLANNER-C Referral 09/08/2024 Travel 09/01/2024 11:15 AM PLASTIC EXTRUDING MACHINE OPERATOR Allied Health/Nurse Visit [facility] [address] [place] [address] Christel Mejia MD 09/01/2024 11:15 AM PLASTIC EXTRUDING MACHINE OPERATOR [facility] [address] [place] [address] Christel Mejia MD Follow Up; Cardiac Device Management; Atrial Fibrillation 09/01/2024 Orders Only [facility] [address] [place] [address] Jaida Yee APRN, PLANNER-C 09/01/2024 Telephone [facility] [address] [place] [address] Jaida Yee APRN, PLANNER-C Appointment Request 09/01/2024 Travel 08/31/2024 Scan [facility] [address] [place] [address] Scanned, Doc Pccl 08/31/2024 Orders Only [facility] [address] [place] [address] Christel Mejia MD 08/31/2024 Telephone [facility] [address] [place] [address] Christel Mejia MD Record Request 08/28/2024 Scan [facility] [address] [place] [address] Scanned, Doc Pccl ECG (SCAN) 08/28/2024 Scan [facility] [address] [place] [address] Scanned, Doc Pccl 08/28/2024 Telephone [facility] [address] [place] [address] Christel Mejia MD Record Request 08/25/2024 Telephone [facility] [address] [place] [address] Christel Mejia MD Reschedule 08/20/2024 Orders Only [facility] [address] [place] [address] Christel Mejia MD 08/10/2024 Telephone [facility] [address] [place] [address] Christel Mejia MD Appointment Request [...] place to sleep or slept in a long-term (including now)? Yes 11/29/2022 Comments No Sex and Gender Information Value Date Recorded Sex Assigned at Female 09/01/2024 10:13 AM PLASTIC EXTRUDING MACHINE OPERATOR Legal Sex Female 10:21 PM CDT Gender Identity Not on file Sexual Orientation Not on file Occupation Industry Job Start Date Job End Date retired Not on file Not on file Not on file Last Filed Vital Signs Vital Sign Reading Time Taken Comments Blood Pressure 110/80 09/08/2024 10:51 AM PLASTIC EXTRUDING MACHINE OPERATOR Pulse 112 09/08/2024 10:51 AM PLASTIC EXTRUDING MACHINE OPERATOR Temperature 36.8 C (98.2 F) 08/30/2023 12:39 PM PLASTIC EXTRUDING MACHINE OPERATOR Respiratory Rate 16 09/08/2024 10:51 AM PLASTIC EXTRUDING MACHINE OPERATOR Oxygen Saturation 94% 09/08/2024 10:51 AM PLASTIC EXTRUDING MACHINE OPERATOR Inhaled Oxygen Concentration - - Weight 87.5 kg (193 lb) 09/08/2024 10:51 AM PLASTIC EXTRUDING MACHINE OPERATOR Height 152.4 cm (5') 09/08/2024 10:51 AM PLASTIC EXTRUDING MACHINE OPERATOR Body Mass Index 37.69 09/08/2024 10:51 AM PLASTIC EXTRUDING MACHINE OPERATOR Plan of Treatment Upcoming Encounters Date Type Department Care Team (Latest Contact Info) Description 10/12/2024 3:30 PM PLASTIC EXTRUDING MACHINE OPERATOR Appointment [facility] [address] [place] [address] [place] [address] Stella Llanos MD [address] [place] [address] 10/12/2024 3:45 PM PLASTIC EXTRUDING MACHINE OPERATOR Office Visit [facility] [place] [address] Stella Llanos MD [address] [place] [address] 12/07/2024 1:15 AM CDT [facility] [address] [place] [address] Christel Mejia MD [address] [place] [address] 12/21/2024 2:30 PM CDT [facility] [address] [place] [address] Maciel Wang PATanishaC [address] [place] [address] 12/21/2024 2:30 PM CDT Allied Health/Nurse [facility] [address] [place] [address] Christel Mejia MD [address] [place] [address] [phone] Health Maintenance Due Date Last Done Comments [...] upon discharge Lifestyle No Elina Lambert, RN Medical Devices Implanted Type Area Sand Screener Device Identifier Shelf Expiration Date Model / Serial / Lot [employer] Vigilant El Dr-08/30/2023 Implanted:Qty: 1 on 08/30/2023 by Christel Mejia MD ICD [employer] MIKO 12/28/2024 [id number] / [id number] / Description:DX: NICM MRI Conditional under following conditions: Static magnetic field of 1.5 T or 3 T, Max spatial gradient field of 5000 Gauss/cm or less, Max slew rate 200 T/m/s , WHOLE BODY TERESO OF 2 W/KG OR LESS, HEAD TERESO 3.2 W/KG OR LESS , Supine or Prone only [employer] Ra-08/30/2023 Implanted:Qty: 1 on 08/30/2023 by Christel Mejia MD Lead Implant [employer] MI[employer] 01/04/2025 [id number] / [id number] / [employer] Rv-08/30/2023 Implanted:Qty: 1 on 08/30/2023 by Christel Mejia MD Lead Implant [employer] 04/08/2024 [id number] / [id number] / Cv Synergy Xd Jose-Lad- 021 Implanted:02/18 by Russell Bentley MD (Quantity not on file) Stent Coronary LAD 99Bill 10/05/2022 [id number] / / [id number] Cv Synergy Xd Jose-[place]-2020 Implanted:02/18 by Russell Bentley MD (Quantity not on file) Stent Coronary LAD 99Bill 11/17/2022 [id number] / / [id number] Procedures Procedure Name Priority Date/Time Associated Diagnosis Comments BASIC METABOLIC PANEL Routine 09/24/2024 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 use of drug BASIC METABOLIC PANEL Routine 09/18/2024 intermediate use of drug BASIC METABOLIC PANEL Routine 09/09/2024 ELECTROCARDIOGRAM (NON MIDMARK ACQUIRED) Routine 09/01/2024 10:27 AM PLASTIC EXTRUDING MACHINE OPERATOR Atrial fibrillation, unspecified type ([facility]) AICD (automatic cardioverter/defibri llator) present COMPREHENSIVE METABOLIC PANEL Routine 08/31/2024 CBC, MANUAL DIFF Routine 08/31/2024 ECG GENERIC (SCAN ORDER) Routine 025 12:00 AM PLASTIC EXTRUDING MACHINE OPERATOR LIPID PANEL Routine 03/27/2021 10:35 AM CDT intermediate use of drug Hyperlipidemia, unspecified hyperlipidemia type [...] Final Result * ELECTROCARDIOGRAM (09/01/2024 10:27 AM PLASTIC EXTRUDING MACHINE OPERATOR) 09/01/2024 10:2 7 AM PLASTIC EXTRUDING MACHINE OPERATOR Narrative [facility] - 09/07/2024 7:54 AM PLASTIC EXTRUDING MACHINE OPERATOR [facility] [address] [place] [address] Test Date: 2024-09-01 Pat Name: JENNIFER MOREAU Department: 105 Room: Gender: Female Operations And Maintenance Manager: GIO : 1940 Requested By: CHRISTEL MEJIA Order Number: [id number] Reading MD: Christel Mejia Measurements Intervals Tropic Rate: 91 P: 44 NV: 185 QRS: -54 QRSD: 115 T: 123 QT: 368 QTc: 455 Interpretive Statements SINUS RHYTHM LEFT AXIS DEVIATION MODERATE INTRAVENTRICULAR CONDUCTION DELAY ST DEVIATION AND MODERATE T-WAVE ABNORMALITY, CONSIDER LATERAL ISCHEMIA TIC EXTRUDING MACHINE OPERATOR Procedure Note Christel Mejia MD - 09/07/2024 [facility] [address] [place] [address] Test Date: 2024-09-01 Pat Name: JENNIFER MOREAU Department: 105 Room: Gender: Female Operations And Maintenance Manager: GIO : 1940 Requested By: CHRISTEL MEJIA Order Number: [id number] Reading : Christel Mejia Measurements Intervals Tropic Rate: 91 P: 44 NV: 185 QRS: -54 QRSD: 115 T: 123 QT: 368 QTc: 455 Interpretive Statements SINUS RHYTHM LEFT AXIS DEVIATION MODERATE INTRAVENTRICULAR CONDUCTION DELAY ST DEVIATION AND MODERATE T-WAVE ABNORMALITY, CONSIDER LATERAL ISCHEMIA TIC EXTRUDING MACHINE OPERATOR us Christel Mejia MD PROCEDURES-ORDERABLE NO CHARGE F inal Result Performing Organization Address City/[facility]/ZIP Co de Phone Number [facility] * (ABNORMAL) COMPREHENSIVE METABOLIC PANEL (08/31/2024) SODIUM S/P/B 138 GLUCOSE 103 mg/dL AST 31 BUN 27 CREATININE S/P/B 1.23(A) 0.5 - 1.0 CALCIUM S/P/B 8.0 POTASSIUM S/P/B 3.8 CHLORIDE S/P/B 102 ALT 21 GFR ESTIMATE 42 Narrative Resulting Agency Comment [facility] Default History Genericprovider LABORATORY Final Result * CBC, MANUAL DIFF (08/31/2024) Pathologist [facility] WBC 7.4 HGB 10.8 HCT 35.8 PLT 231 Narrative Resulting Agency Comment [facility] us Default History Genericprovider LABORATORY Final Result * ECG (08/28/2024 12:00 AM PLASTIC EXTRUDING MACHINE OPERATOR) 08/28/2024 us Doc Pccl Scanned SCANNING Final Result Performing Organization Address [facility] Co de Phone Number [facility] * LIPID PANEL (03/27/2021 10:35 AM CDT) CHOLESTEROL 201 MG/DL 03/27/2021 11:16 AM CDT [facility] Comment:BORDERLINE HIGH: 200 -239 TRIGLYCERIDES 175 MG/DL 03/27/2021 11:16 AM CDT [facility] Comment:150-199 BORDERLINE H IGH HDL 56 >49 MG/DL 03/27/2021 11:16 AM CDT [facility] LDL (CALCULATED) 110 MG/DL 03/27/20 11:16 AM CDT [facility] Comment:100-129 NEAR OR ABOV E OPTIMAL VLDL CALCULATION 35 MG/DL 03/27/20 11:16 AM CDT [facility] Comment:REFERENCE RANGE NOT ESTABLISHED CHOL/HDL RATIO 3.6 03/27/2021 11:16 AM CDT [facility] Comment:REFERENCE RANGE NOT ESTABLISHED LDL/HDL 2.0 03/27/2021 11:16 AM CDT [facility] Comment:REFERENCE RANGE NOT ESTABLISHED NON HDL CHOLESTEROL 145 MG/DL 03/27/2021 11:16 AM CDT [facility] Comment:REFERENCE RANGE NOT ESTABLISHED 03/27/2021 10:3 5 AM CDT [facility] APRNC LABORATORY Final Result [facility] [address] [place] [address], [id number] from Last 3 Months or Most Recently Relevant to Health Maintenance [facility] MEDICAID Advance Directives Documents on File Type Date Recorded Patient Sash Maker Expl anation Advance Directives and Living Will [...] 1:31 PM 11/29/2022 4:09 PM Care Teams Draughtsman Relationship Specialty Start Date End Date Gino Meyer MD [address] [place] [address] PCP - General INTERNAL MEDICINE 06/11/17 Christel Mejia MD [address] [place] [address] EP Antichecking Iron Worker CLINICAL CARDIAC ELECTROPHYSIOLOGY 06/12/23
--- OUTSIDE RECORDS SUMMARY | 2024-10-09 12:40 | XMS_ITS | Encounter Summary ---
Author Organization [facility] Address Counts include [facility] beds at the [facility] [place] [address] Care Team Providers Care Treasury Specialist Name Role Phone Toy [facility] MD Primary Care Provider [phone] Santos Fuentes MD Unavailable UnavailGino Mena MD Primary Care Provider [phone] Shana Adams NP Unavailable Unavailable Christel Lu MD Unavailable Encounter Details Date Type Department Care Team (Late st Contact Info) Description 01/31/2017 Abstract [facility] [address] [place] [address] Santos Fuentes MD Social History Tobacco Use Types Packs/Day Years Used Date Smoking Tobacco: Never Alcohol Use Standard Drinks/Week Comments No 0 (1 standard drink = 0.6 oz pur e alcohol) Comments Unknown Sex and Gender Information Value Date Recorded Sex Assigned at Female 09/01/2024 10:13 AM PAPER BAGS SEWING MACHINE OPERATOR Legal Sex Female 10:21 PM CDT Gender Identity Not on file Sexual Orientation Not on file Occupation Industry Job Start Date Job End Date retired Not on file Not on file Not on file documented as of this encounter Plan of Treatment Upcoming Encounters Date Type Department Care Team (Latest Contact Info) Description 10/12/2024 3:30 PM PAPER BAGS SEWING MACHINE OPERATOR Appointment [facility] [address] [place] [address] Stella Llanos MD [address] [place] [address] 10/12/2024 3:45 PM PAPER BAGS SEWING MACHINE OPERATOR Office Visit [facility] [address] [place] [address] Stella Llanos MD [address] [place] [address] 12/07/2024 1:15 AM CDT Allied Health/Nurse Visit [facility] ld [address] [place] [address] Christel Lu MD [address] [place] [address] 12/21/2024 2:30 PM CDT Office Visit [facility] ld [address] [place] [address] Maciel Wang, PA-C [address] [place] [address] 12/21/2024 2:30 PM CDT Allied Health/Nurse Visit [facility] ld [address] [place] [address] Christel Lu MD [address] [place] [address] documented as of this encounter Visit Diagnoses Not on filedocumented in this encounter Additional Health Concerns Infection Onset Date Last Indicated Resolved Time COVID-19 Rule Out 04/24/2022 04/24/2022 04/24/2022 4:06 AM CDT documented as of this encounter Care Teams Treasury Specialist Relationship Specialty Start Date End Date Toy Warren MD [address] [place] [address] PCP - General INTERNAL MEDICINE 02/06/17 06/10/17 Gino Meyer MD [address] [place] [address] PCP - General INTERNAL MEDICINE 06/11/17 Santos Fuentes MD [address] [place] [address] [place] Youth Development Specialist CARDIOVASCULAR DISEASE 02/06/17 08/31/24 Shana Adams NP [address] [place] [address] Referring Physician Nurse Practitioner Family 02/27/23 Christel Lu MD [address] [place] [address] EP Youth Development Specialist CLINICAL CARDIAC ELECTROPHYSIOLOGY 06/12/23 documented as of this encounter
--- OUTSIDE RECORDS SUMMARY | 2024-10-09 12:40 | XMS_ITS | Encounter Summary ---
Author Organization [facility] Address [facility] [place] [address] Care Team Providers Care Marketing Co Op Name Role Phone Santos Fuentes MD Unavailable UnavailGino Mena MD Primary Care Provider [phone] Shana Adams NP Unavailable Unavailable Christel Lu MD Unavailable Encounter Details Date Type Department Care Team (Late st Contact Info) Description 12/06/2022 Hospital Follow-up Call [facility] [address] [place] [address] Stephie Arreola, RN Social History [...] Sex Assigned at Female 09/01/2024 10:13 AM PRESTRESSED CONCRETE LABORER Legal Sex Female 10:21 PM CDT Gender [...] (Latest Contact Info) Description 10/12/2024 3:30 PM PRESTRESSED CONCRETE LABORER Appointment [facility] [address] [place] [address] [place] [address] Stella Llanos MD [address] [place] [address] 10/12/2024 3:45 PM PRESTRESSED CONCRETE LABORER Office Visit [facility] [address] [place] [address] Stella Llanos MD [address] [place] [address] 12/07/2024 1:15 AM CDT Allied Health/Nurse Visit [facility] [address] [place] [address] Christel Lu MD [address] [place] [address] [phone] 12/21/2024 2:30 PM CDT Office Visit [facility] [address] [place] [address] Maciel Wang PA-C [address] [place] [address] 12/21/2024 2:30 PM CDT Allied Health/Nurse Visit [facility] [address] [place] [address] Christel Lu MD [address] [place] [address] documented as of this encounter Goals Goal Patient Goal Type Associated Problems Recent Progress Patient-Stated? Author Safety Patient/family will have appropriate support at home upon discharge Lifestyle No Merissa Santiago RN Safety Patient/family will have appropriate support at home upon discharge Lifestyle No Elina Lambert, RN documented as of this encounter Visit Diagnoses Not on filedocumented in this encounter Care Teams Marketing Co Op Relationship Specialty Start Date End Date Gino Meyer MD [address] [place] [address] PCP - General INTERNAL MEDICINE 06/11/17 Santos Fuentes MD [place] Name Plate Stamping Machine Operator CARDIOVASCULAR DISEASE 02/06/17 08/31/24 Shana Adams NP [address] [place] [address] Referring Physician Nurse Practitioner Family 02/27/23 Christel Lu MD [address] [place] [address] EP Name Plate Stamping Machine Operator CLINICAL CARDIAC ELECTROPHYSIOLOGY 06/12/23 documented as of this encounter
--- OUTSIDE RECORDS SUMMARY | 2024-10-09 12:40 | XMS_ITS | Encounter Summary ---
Author Organization [facility] Address [facility] [place] [address] Care Team Providers Care External Grinder Tool Name Role Phone Gino Meyer MD Primary Care Provider [phone] Christel Lu MD Unavailable Encounter Details Date Type Department Care Team (Late st Contact Info) Description 10/08/2024 Orders Only [facility] [address] [place] [address] Stella Llanos MD [address] [place] [address] Social History Tobacco Use Types Packs/Day Years [...] Sex Assigned at Female 09/01/2024 10:13 AM MOBILE MARKETING MANAGER Legal Sex Female 10:21 PM CDT Gender Identity Not on file Sexual Orientation Not on file Occupation Industry Job Start Date Job End Date retired Not on file Not on file Not on file documented as of this encounter Functional Status * Are you deaf or do you have serious difficulty hearing Answer Date of Assessment Author Status No 07/23/2023 6:28 AM MOBILE MARKETING MANAGER Saroj Matthews RN Active * Are you blind or do you have serious difficulty seeing, even when wearing glasses? Answer Date of Assessment Author Status No 07/23/2023 6:28 AM MOBILE MARKETING MANAGER Saroj Matthews RN Active * Do you [...] (Latest Contact Info) Description 10/12/2024 3:30 PM MOBILE MARKETING MANAGER Appointment [facility] [address] [place] [address] [place] [address] Stella Llanos MD [address] [place] [address] 10/12/2024 3:45 PM MOBILE MARKETING MANAGER Office Visit [facility] [place] [address] Stella Llanos MD [address] [place] [address] 12/07/2024 1:15 AM CDT Allied Health/Nurse Visit [facility] [address] [place] [address] Christel Lu MD [address] [place] [address] 12/21/2024 2:30 PM CDT Office Visit [facility] [address] [place] [address] Maciel Wang, PA-C [address] [place] [address] 12/21/2024 2:30 PM CDT [facility] [address] [place] [address] Christel Lu MD [address] [place] [address] Scheduled Orders Name Type Priority Associated Diagnoses Orde r Schedule ECG 12 lead (HOSPITAL PERFORMED ONLY) EKG-NonRad Routine Non-ischemic cardiomyopathy ([facility]) Expected: 10/08/2024, Expires: 10/08/2025 documented as of this encounter Goals Goal Patient Goal Type Associated Problems Recent Progress Patient-Stated? Author Safety Patient/family will have appropriate support at home upon discharge Lifestyle No Merissa Santiago RN Safety Patient/family will have appropriate support at home upon discharge Lifestyle No Elina Lambert, RN documented as of this encounter Visit Diagnoses Diagnosis Non-ischemic cardiomyopathy ([facility])- Primary Other primary cardiomyopathies documented in this encounter Care Teams External Grinder Tool Relationship Specialty Start Date End Date Gino Meyer MD [address] [place] [address] PCP - General INTERNAL MEDICINE 06/11/17 Christel Lu MD [address] [place] [address] EP Gi Tech CLINICAL CARDIAC ELECTROPHYSIOLOGY 06/12/23 documented as of this encounter
--- OUTSIDE RECORDS SUMMARY | 2024-10-09 12:40 | XMS_ITS | Encounter Summary ---
Author Organization [facility] Address [facility] [place] [address] Care Team Providers Care Equipment Maintenance Supervisor Name Role Phone Toy Warren MD Primary Care Provider [phone] Santos Fuentes MD Unavailable UnavailGino Mena MD Primary Care Provider [phone] Shana Adams NP Unavailable Unavailable Christel Lu MD Unavailable Encounter Details Date Type Department Care Team (Late st Contact Info) Description 03/06/2017 Abstract [facility] [address] [place] [address] Santos Fuentes MD Social History Tobacco Use Types Packs/Day Years Used Date Smoking Tobacco: Never Alcohol Use Standard Drinks/Week Comments No 0 (1 standard drink = 0.6 oz pur e alcohol) Comments Unknown Sex and Gender Information Value Date Recorded Sex Assigned at Female 09/01/2024 10:13 AM SCHOOL PROGRAM DIRECTOR Legal Sex Female 10:21 PM CDT Gender Identity Not on file Sexual Orientation Not on file Occupation Industry Job Start Date Job End Date retired Not on file Not on file Not on file documented as of this encounter Plan of Treatment Upcoming Encounters Date Type Department Care Team (Latest Contact Info) Description 10/12/2024 3:30 PM SCHOOL PROGRAM DIRECTOR Appointment [facility] [address] [place] [address] Stella Llanos MD [address] [place] [address] 10/12/2024 3:45 PM SCHOOL PROGRAM DIRECTOR Office Visit [facility] [address] [place] [address] Stella Llanos MD [address] [place] [address] 12/07/2024 1:15 AM CDT Allied Health/Nurse Visit [facility] [address] [place] [address] Christel Lu MD [address] [place] [address] 12/21/2024 2:30 PM CDT Office Visit [facility] [address] [place] [address] Maciel Wang, PA-C [address] [place] [address] 12/21/2024 2:30 PM CDT Allied Health/Nurse Visit [facility] [address] [place] [address] Christel Lu MD [address] [place] [address] documented as of this encounter Visit Diagnoses Not on filedocumented in this encounter Additional Health Concerns Infection Onset Date Last Indicated Resolved Time COVID-19 Rule Out 04/24/2022 04/24/2022 04/24/2022 4:06 AM CDT documented as of this encounter Care Teams Equipment Maintenance Supervisor Relationship Specialty Start Date End Date Toy Warren MD [address] [place] [address] PCP - General INTERNAL MEDICINE 02/06/17 06/10/17 Gino Meyer MD [address] [place] [address] PCP - General INTERNAL MEDICINE 06/11/17 Santos Fuentes MD [address] [place] [address] [place] Log[employer] Equipment Mechanic CARDIOVASCULAR DISEASE 02/06/17 08/31/24 Shana Adams NP [address] [place] [address] Referring Physician Nurse Practitioner Family 02/27/23 Christel Lu MD [address] [place] [address] EP Logging Equipment Mechanic CLINICAL CARDIAC ELECTROPHYSIOLOGY 06/12/23 documented as of this encounter
[2024-10-09 13:13] LABS: Alanine Aminotransferase 15 U/L (14-59); Alkaline Phosphatase 93 U/L (46-116); Anion Gap 11 mmol/L (4-12); Aspartate Amino Transferase 20 U/L (15-37); Bilirubin,Total 0.5 mg/dL (0.00-1.00); Blood Urea Nitrogen 40 mg/dL (7-18); Calcium 8.4 mg/dL (8.5-10.1); Carbon Dioxide 25 mmol/L (21-32); Chloride 98 mmol/L (98-108); Digoxin 0.3 ng/mL (0.9-2.0); Estimated Glomerular Filt Rate 29; Glucose 113 mg/dL (70-99); NT Pro B Type Natriuretic Pept 8040 pg/mL (0-450); Osmolality Calculated 288 mOsm/kg (285-295); Potassium 5.1 mmol/L (3.5-5.1); Sodium 134 mmol/L (136-145); Total Protein 6.7 g/dL (6.4-8.2)
== END 2024-10-09 12:37 | disposition home or self-care (01) ==
PROVIDERS: PCP Internal Medicine; Visit Provider Internal Medicine
DX: I50.1 Left ventricular failure, unspecified (principal)
CPT/HCPCS: 36415; 80053; 80162; 83735; 83880

== ENCOUNTER 2024-10-16 14:10 | Outpatient (NON) | payer MEDICARE, SELFPAY ==
[2024-10-16 15:28] LABS: Alanine Aminotransferase 13 U/L (14-59); Albumin Level 3.1 g/dL (3.4-5.0); Alkaline Phosphatase 100 U/L (46-116); Anion Gap 9 mmol/L (4-12); Aspartate Amino Transferase 15 U/L (15-37); Blood Urea Nitrogen 24 mg/dL (7-18); Calcium 9.1 mg/dL (8.5-10.1); Carbon Dioxide 29 mmol/L (21-32); Chloride 98 mmol/L (98-108); Digoxin 0.2 ng/mL (0.9-2.0); Estimated Glomerular Filt Rate 35; Glucose 109 mg/dL (70-99); Magnesium 2.1 mg/dL (1.8-2.4); NT Pro B Type Natriuretic Pept 7115 pg/mL (0-450); Osmolality Calculated 287 mOsm/kg (285-295); Potassium 4.6 mmol/L (3.5-5.1); Sodium 136 mmol/L (136-145); Total Protein 7.1 g/dL (6.4-8.2)
[2024-10-16 15:47] LABS: Bilirubin,Total 0.5 mg/dL (0.00-1.00)
== END 2024-10-16 14:11 | disposition home or self-care (01) ==
LOC: CHSLAB 14:13
PROVIDERS: PCP Internal Medicine; Visit Provider Internal Medicine
DX: I50.9 Heart failure, unspecified (principal); I25.10 Atherosclerotic heart disease of native coronary artery without angina pectoris; R60.9 Edema, unspecified
CPT/HCPCS: 36415; 80053; 80162; 83735; 83880

== ENCOUNTER 2024-10-22 13:29 | Outpatient (NON) | payer MEDICARE, SELFPAY ==
[2024-10-22 14:23] LABS: Alanine Aminotransferase 9 U/L (14-59); Albumin Level 3.2 g/dL (3.4-5.0); Alkaline Phosphatase 103 U/L (46-116); Anion Gap 9 mmol/L (4-12); Aspartate Amino Transferase 17 U/L (15-37); Bilirubin,Total 0.7 mg/dL (0.00-1.00); Blood Urea Nitrogen 26 mg/dL (7-18); Calcium 9.1 mg/dL (8.5-10.1); Carbon Dioxide 29 mmol/L (21-32); Chloride 101 mmol/L (98-108); Estimated Glomerular Filt Rate 36; Glucose 112 mg/dL (70-99); Magnesium 2.5 mg/dL (1.8-2.4); NT Pro B Type Natriuretic Pept 9982 pg/mL (0-450); Osmolality Calculated 293 mOsm/kg (285-295); Potassium 4.3 mmol/L (3.5-5.1); Sodium 139 mmol/L (136-145); Total Protein 7.2 g/dL (6.4-8.2)
[2024-10-22 14:35] LABS: Digoxin < 0.2 ng/mL (0.9-2.0)
--- OUTSIDE RECORDS SUMMARY | 2024-10-22 14:50 | XMS_ITS | Encounter Summary ---
Author Organization [facility] Address [address] [place] [address] Care Team Providers Care Commercial Account Manager Name Role Phone Toy Warren MD Primary Care Provider [phone] Santos Fuentes MD Unavailable Unavailabl e Gino Meyer MD Primary Care Provider [phone] Shana Adams NP Unavailable Unavailable Christel Lu MD Unavailable Stella Llanos MD Unavailable Encounter Details Date Type Department Care Team (Late st Contact Info) Description 01/31/2017 Abstract [facility] [address] [place] [address] Santos Fuentes MD Social History Tobacco Use Types Packs/Day Years Used Date Smoking Tobacco: Never Alcohol Use Standard Drinks/Week Comments No 0 (1 standard drink = 0.6 oz pur e alcohol) Comments Unknown Sex and Gender Information Value Date Recorded Sex Assigned at Female 09/01/2024 10:13 AM WEB PRODUCTION ASSISTANT Legal Sex Female 10:21 PM CDT Gender Identity Not on file Sexual Orientation Not on file Occupation Industry Job Start Date Job End Date retired Not on file Not on file Not on file documented as of this encounter Plan of Treatment Upcoming Encounters Date Type Department Care Team (Latest Contact Info) Description 10/29/2024 3:30 PM CDT Appointment [address] [place] [address] Stella Llanos MD [address] [place] [address] 12/07/2024 1:15 AM CDT Allied Health/Nurse Visit [facility] [address] [place] [address] Christel Lu MD [address] [place] [address] 12/21/2024 2:30 PM CDT Office Visit [facility] [address] [place] [address] Maciel Wang, PA-C [address] [place] [address] 12/21/2024 2:30 PM CDT Allied Health/Nurse Visit [facility] [address] [place] [address] Christel Lu MD [address] [place] [address] [phone] 03/29/2025 1:00 PM CDT [facility] [address] [place] [address] Stella Llanos MD [address] [place] [address] documented as of this encounter Visit Diagnoses Not on filedocumented in this encounter Additional Health Concerns Infection Onset Date Last Indicated Resolved Time COVID-19 Rule Out 04/24/2022 04/24/2022 04/24/2022 4:06 AM CDT documented as of this encounter Care Teams Commercial Account Manager Relationship Specialty Start Date End Date Toy Warren MD [address] [place] [address] PCP - General INTERNAL MEDICINE 02/06/17 06/10/17 Gino Meyer MD [address] [place] [address] PCP - General INTERNAL MEDICINE 06/11/17 Santos Fuentes MD [address] [place] [address] [employer] Professional CARDIOVASCULAR DISEASE 02/06/17 08/31/24 Shana Adams NP [address] [place] [address] Referring Physician Nurse Practitioner [facility] 02/27/23 Christel Lu MD [address] [place] [address] EP Head Golf Professional CLINICAL CARDIAC ELECTROPHYSIOLOGY 06/12/23 Stella Llanos MD [address] [place] [address] [employer] CARDIOVASCULAR DISEASE 10/16/24 documented as of this encounter
--- OUTSIDE RECORDS SUMMARY | 2024-10-22 14:50 | XMS_ITS | Clinical Summary ---
Author Organization [facility] Address [address] [place] [address] Care Team Providers Care Upholstery Technician Name Role Phone Gino Meyer MD Primary Care Provider [phone] Christel Lu MD Unavailable Toro Freire MD Unavailable Allergies No known active allergies [...] carvedilol (COREG) 12.5 MG tabletIndicatio ns:Atrial fibrillation ([facility] HHS/HCC) TAKE ONE TABLET BY MOUTH TWICE A DAY 60 tablet 3 09/30/19 25 Active carvedilol (COREG) 12.5 MG tabletIndicatio ns:Atrial fibrillation ([facility] HHS/HCC) Take 1 tablet (12.5 mg total) by mouth 2 (two) times daily. 60 tablet 08/11/20 24 025 Discontinued Active Problems Problem Noted Date Diagnosed Date Breast cancer ([facility]) 07/23/2023 S/P coronary artery stent placement 03/18/2021 Mixed hyperlipidemia 07/10/2017 Stage 2 chronic kidney disease 06/14/2014 Non-ischemic cardiomyopathy ([facility]) AICD (automatic cardioverter/defibrillator) pres ent Hypertension Coronary artery disease Systolic heart failure ([facility]) Resolved Problems Problem Noted Date Diagnosed Date Resolved Date Hypotension due to hypovolemia 04/25/2022 06/13/2023 Obesity (BMI 30-39.9) 07/10/20172021 Encounters Date Type Department Care Team Description 10/16/2024 Telephone [facility] ie [address] [place] [address] Toro Freire MD Schedule Test 10/12/2024 3:45 PM SPOOL CARRIER Office Visit [facility] [address] [place] [address] Toro Freire MD 10/12/2024 2:59 PM SPOOL CARRIER - 10/12/2024 11:59 PM SPOOL CARRIER Hospital Encounter [facility] [address] [place] [address] Toro Freire MD Discharge Disposition: Home or Self Care (Routine Discharge) 10/12/2024 Travel 10/08/2024 Orders Only [facility] [address] [place] [address] Toro Freire MD 10/07/2024 Telephone [facility] [address] [place] [address] Toro Freire MD Appointment Reminder 10/02/2024 Telephone [facility] [address] [place] [address] Jaida Yee, JAYDEN, GRAVITY METER OBSERVER-C Lab Results; Lab Order 09/30/2024 Telephone [facility] [address] [place] [address] Christel Lu MD Appointment Request 09/24/2024 Telephone [facility] [address] [place] [address] [phone] Jaida Yee APRN, GRAVITY METER OBSERVER-C Follow Up Call 09/24/2024 Orders Only [facility] [address] [place] [address] [phone] Heidy Landers LPN 09/22/2024 Abstract [facility] [address] [place] [address] Jaida Yee APRN, GRAVITY METER OBSERVER-C 09/22/2024 Telephone [facility] [address] [place] [address] Jaida Yee APRN, GRAVITY METER OBSERVER-C Other 09/16/2024 10:39 AM SPOOL CARRIER - 09/16/2024 11:59 PM SPOOL CARRIER Hospital Encounter [facility] [address] [place] [address] Barbi Day, EMBEDDED CASE MANAGER Discharge Disposition: Home or Self Care (Routine Discharge) 09/16/2024 Travel 09/16/2024 Telephone [facility] [address] [place] [address] [phone] Jaida Yee APRN, GRAVITY METER OBSERVER-C Question 09/10/2024 Telephone [facility] [address] [place] [address] Jaida Yee APRN, GRAVITY METER OBSERVER-C Follow Up Call 09/10/2024 Abstract [facility] [address] [place] [address] Abstract, Doc Pccl 09/08/2024 11:00 AM SPOOL CARRIER Office Visit [facility] [address] [place] [address] Jaida Yee APRN, GRAVITY METER OBSERVER-C Follow Up; CHF 09/08/2024 Telephone [facility] [address] [place] [address] Toro Freire MD Appointment Request 09/08/2024 Telephone [facility] [address] [place] [address] Jaida Yee APRN GRAVITY METER OBSERVER-C Referral 09/08/2024 Travel 09/01/2024 11:15 AM SPOOL CARRIER Allied Health/Nurse Visit [facility] [address] [place] [address] Christel Lu MD 09/01/2024 11:15 AM SPOOL CARRIER Office Visit [facility] [address] [place] [address] Christel Lu MD Follow Up; Cardiac Device Management; Atrial Fibrillation 09/01/2024 Orders Only [facility] [address] [place] [address] Jaida Yee APRN GRAVITY METER OBSERVER-Angeli 09/01/2024 Telephone [facility] [address] [place] [address] Jaida Yee APRN, GRAVITY METER OBSERVER-C Appointment Request 09/01/2024 Travel 08/31/2024 Scan [facility] [address] [place] [address] Scanned, Doc Pccl 08/31/2024 Orders Only [facility] [address] [place] [address] Christel Lu MD 08/31/2024 Telephone [facility] [address] [place] [address] Christel Lu MD Record Request 08/30/2024 Scan [facility] [address] [place] [address] Scanned, Doc Pccl 08/28/2024 Scan [facility] [address] [place] [address] Scanned, Doc Pccl ECG (SCAN) 08/28/2024 Scan [facility] [address] [place] [address] Scanned, Doc Pccl 08/28/2024 Telephone [facility] [address] [place] [address] Christel Lu MD Record Request 08/25/2024 Telephone [facility] [address] [place] [address] Christel Lu MD Reschedule 08/20/2024 Orders Only [facility] [address] [place] [address] Christel Lu MD 08/10/2024 Telephone [facility] [address] [place] [address] Christel Lu MD Appointment Request from Last [...] place to sleep or slept in a usp (including now)? Yes 11/29/2022 Comments No Sex and Gender Information Value Date Recorded Sex Assigned at Female 09/01/2024 10:13 AM SPOOL CARRIER Legal Sex Female 10:21 PM CDT Gender Identity Not on file Sexual Orientation Not on file Occupation Industry Job Start Date Job End Date retired Not on file Not on file Not on file Last Filed Vital Signs Vital Sign Reading Time Taken Comments Blood Pressure 110/60 10/12/2024 2:53 PM SPOOL CARRIER Pulse 105 10/12/2024 2:53 PM SPOOL CARRIER Temperature 36.8 C (98.2 F) 08/30/2023 12:39 PM SPOOL CARRIER Respiratory Rate 16 10/12/2024 2:53 PM SPOOL CARRIER Oxygen Saturation 100% 10/12/2024 2:53 PM SPOOL CARRIER Inhaled Oxygen Concentration - - Weight 80.7 kg (178 lb) 10/12/2024 2:53 PM SPOOL CARRIER Height 152.4 cm (5') 10/12/2024 2:53 PM SPOOL CARRIER Body Mass Index 34.76 10/12/2024 2:53 PM SPOOL CARRIER Plan of Treatment Upcoming Encounters Date Type Department Care Team (Latest Contact Info) Description 10/29/2024 3:30 PM CDT Appointment [facility] [address] [place] [address] Toro Freire MD [address] [place], [place] [address] 12/07/2024 1:15 AM CDT Allied Health/Nurse Visit [facility] [address] [place] [address] Christel Lu MD [address] [place] [address] 12/21/2024 2:30 PM CDT Office Visit [facility] [address] [place] [address] Maciel Wang, ERIKAC [address] [place] [address] 12/21/2024 2:30 PM CDT Allied Health/Nurse Visit [facility] [address] [place] [address] Christel Lu MD [address] [place] [address] 03/29/2025 1:00 PM CDT Office Visit [facility] [place] [address] Toro Freire MD [address] [place], [place] [address] Health Maintenance Due Date Last Done Comments [...] Lambert RN Medical Devices Implanted Type Area Packaging Engineer Device Identifier Shelf Expiration Date Model / Serial / Lot [employer] Vigilant El Dr-08/30/2023 Implanted:Qty: 1 on 08/30/2023 by Christel Lu MD ICD [employer] 12/28/2024 [id number] / [id number] / Description:DX: NICM MRI Conditional under following conditions: Static magnetic field of 1.5 T or 3 T, Max spatial gradient field of 5000 Gauss/cm or less, Max slew rate 200 T/m/s , WHOLE BODY TERESO OF 2 W/KG OR LESS, HEAD TERESO 3.2 W/KG OR LESS , Supine or Prone only [employer] Ra-08/30/2023 Implanted:Qty: 1 on 08/30/2023 by Christel Lu MD Lead Implant [employer] 01/04/2025 [id number] / [id number] / [employer] Rv-08/30/2023 Implanted:Qty: 1 on 08/30/2023 by Christel Lu MD Lead Implant [employer] 04/08/2024 [id number] / [id number] / Cv Synergy Xd Jose-Lad- 021 Implanted:02/18 by Russell Bentley MD (Quantity not on file) Stent Coronary LAD [employer] 10/05/2022 [id number] / / [id number] C[employer] Xd Jose-Roby-2020 Implanted:02/18 by Russell Bentley MD (Quantity not on file) Stent Coronary LAD [employer] 11/17/2022 [id number] / / [id number] Procedures Procedure Name Priority Date/Time Associated Diagnosis Comments ECG 12-LEAD Routine 10/12/2024 3:21 PM SPOOL CARRIER Non-ischemic cardiomyopathy (CMS/HCC HHS/HCC) BASIC METABOLIC PANEL Routine 09/24/2024 long term care social worker use of drug BASIC METABOLIC PANEL Routine 09/18/2024 [facility] use of drug BASIC METABOLIC PANEL Routine 09/09/2024 ELECTROCARDIOGRAM (NON MIDMARK ACQUIRED) Routine 09/01/2024 10:27 AM SPOOL CARRIER Atrial fibrillation, unspecified type (CMS/HCC HHS/HCC) AICD (automatic cardioverter/defibri llator) present COMPREHENSIVE METABOLIC PANEL Routine 08/31/2024 CBC, MANUAL DIFF Routine 08/31/2024 ECG GENERIC (SCAN ORDER) Routine 025 12:00 AM SPOOL CARRIER LIPID PANEL Routine 03/27/2021 10:35 AM CDT [facility] use of drug Hyperlipidemia, unspecified hyperlipidemia type from Last 3 Months or Most Recently Relevant to Health Maintenance Results * ECG 12 lead (HOSPITAL PERFORMED ONLY) (10/12/2024 3:21 PM SPOOL CARRIER) 10/12/2024 3:21 PM SPOOL CARRIER Narrative [facility] - 10/12/2024 6:34 PM SPOOL CARRIER [address] [place] [address] Test Date: 2024-10-12 Pat Name: JENNIFER CABALLERORINE Department: 3 Room: Gender: Female Financial Management Analyst: : 1940 Requested By: TORO FREIRE Order Number: [id number] Reading MD: Toro Friere Measurements Intervals [place] Rate: 107 P: 69 [place]: 160 QRS: 148 QRSD: 120 T: -2 QT: 356 QTc: 477 Interpretive Statements SINUS TACHYCARDIA WITH OCCASIONAL VENTRICULAR PREMATURE COMPLEXES POSSIBLE RIGHT VENTRICULAR HYPERTROPHY [SOME/ALL OF: PROMINENT R IN V1, LATE TRANSITION, RAD, BONILLA, SSS] POSSIBLE ANTERIOR MYOCARDIAL INFARCTION [30 ms Q WAVE IN V3/V4, OR R < 0.2 mV IN V4], PROBABLY OLD L CARRIER Procedure Note Toro Freire MD - 10/12/2024 [place] [id number] [facility] [place] [address] Test Date: 2024-10-12 Pat Name: JENNIFER COATES Department: 3 Room: Gender: Female Financial Management Analyst: : 1940 Requested By: TORO FREIRE Order Number: [id number] Reading MD: Toro Freire Measurements Intervals [place] Rate: 107 P: 69 [place]: 160 QRS: 148 QRSD: 120 T: -2 QT: 356 QTc: 477 Interpretive Statements SINUS TACHYCARDIA WITH OCCASIONAL VENTRICULAR PREMATURE COMPLEXES POSSIBLE RIGHT VENTRICULAR HYPERTROPHY [SOME/ALL OF: PROMINENT R IN V1,LATE TRANSITION, RAD, BONILLA, SSS] POSSIBLE ANTERIOR MYOCARDIAL INFARCTION [30 ms Q WAVE IN V3/V4, OR R < 0.2mV IN V4], PROBABLY OLD L CARRIER us Toro Freire MD ECG ORDERABLES Final Result [facility] * (ABNORMAL) BASIC METABOLIC PANEL (09/24/2024) Only [...] Final Result * ELECTROCARDIOGRAM (09/01/2024 10:27 AM SPOOL CARRIER) 09/01/2024 10:2 7 AM SPOOL CARRIER Narrative [facility] - 09/07/2024 7:54 AM SPOOL CARRIER [facility] [address] [place] [address] Test Date: 2024-09-01 Pat Name: JENNIFER COATES Department: 105 Room: Gender: Female Financial Management Analyst: GIO : 1940 Requested By: CHRISTEL LU Order Number: [id number] Reading MD: Christel Lu Measurements Intervals [place] Rate: 91 P: 44 [place]: 185 QRS: -54 QRSD: 115 T: 123 QT: 368 QTc: 455 Interpretive Statements SINUS RHYTHM LEFT AXIS DEVIATION MODERATE INTRAVENTRICULAR CONDUCTION DELAY ST DEVIATION AND MODERATE T-WAVE ABNORMALITY, CONSIDER LATERAL ISCHEMIA L CARRIER Procedure Note Christel Lu MD - 09/07/2024 [facility] [address] [place] [address] Test Date: 2024-09-01 Pat Name: JENNIFER COATES Department: 105 Room: Gender: Female Financial Management Analyst: GIO : 1940 Requested By: CHRISTEL LU Order Number: [id number] Reading MD: Christel Lu Measurements Intervals [place] Rate: 91 P: 44 [place]: 185 QRS: -54 QRSD: 115 T: 123 QT: 368 QTc: 455 Interpretive Statements SINUS RHYTHM LEFT AXIS DEVIATION MODERATE INTRAVENTRICULAR CONDUCTION DELAY ST DEVIATION AND MODERATE T-WAVE ABNORMALITY, CONSIDER LATERAL ISCHEMIA L CARRIER Christel Lu MD PROCEDURES-ORDERABLE NO CHARGE F inal Result [facility] * (ABNORMAL) COMPREHENSIVE METABOLIC PANEL (08/31/2024) SODIUM S/P/B 138 GLUCOSE 103 mg/dL AST 31 BUN 27 CREATININE S/P/B 1.23(A) 0.5 - 1.0 CALCIUM S/P/B 8.0 POTASSIUM S/P/B 3.8 CHLORIDE S/P/B 102 ALT 21 GFR ESTIMATE 42 Narrative Resulting Agency Comment [facility] us Default History Genericprovider LABORATORY Final Result * CBC, MANUAL DIFF (08/31/2024) WBC 7.4 HGB 10.8 HCT 35.8 PLT 231 Narrative Resulting Agency Comment [facility] us Default History Genericprovider LABORATORY Final Result * ECG (08/28/2024 12:00 AM SPOOL CARRIER) 08/28/2024 us Doc Pccl Scanned SCANNING Final Result [facility] * LIPID PANEL (03/27/2021 10:35 AM CDT) CHOLESTEROL 201 MG/DL 03/27/2021 11:16 AM CDT [facility] Comment:BORDERLINE HIGH: 200 -239 TRIGLYCERIDES 175 MG/DL 03/27/2021 11:16 AM CDT [facility] Comment:150-199 BORDERLINE H IGH HDL 56 >49 MG/DL 03/27/2021 11:16 AM CDT [facility] LDL (CALCULATED) 110 MG/DL 03/27/20 11:16 AM CDT [facility] Comment:100-129 NEAR OR ABOV E OPTIMAL VLDL CALCULATION 35 MG/DL 03/27/20 11:16 AM CDT [facility] Comment:REFERENCE RANGE NOT ESTABLISHED CHOL/HDL RATIO 3.6 03/27/2021 11:16 AM CDT [facility] Comment:REFERENCE RANGE NOT ESTABLISHED LDL/HDL 2.0 03/27/2021 11:16 AM CDT [facility] Comment:REFERENCE RANGE NOT ESTABLISHED NON HDL CHOLESTEROL 145 MG/DL 03/27/2021 11:16 AM CDT [facility] Comment:REFERENCE RANGE NOT ESTABLISHED 03/27/2021 10:3 5 AM CDT us POLLO Brand APRN LABORATORY Final Result [facility] [address] [place] [address], [id number] from Last 3 Months or Most Recently Relevant to Health Maintenance Insurance MEDICAID MEDICAID Advance Directives Documents on File Type Date Recorded Patient Banana Loader Expl anation Power of Director Of Surgery 10/21/2024 2:16 PM 2012 - ALEXANDRA COATES, HCA-SON; REJI COATES, 1ST ALTERNATE HCA-OTHER; ANGEL COATES, 2ND ALTERNATE HCA-OTHER; DANNY COATES, 3RD ALTERNATE HCA-OTHER; Advance Directives and Living Will 10/21/2024 2:03 PM Advance Directives and Living Will 10/21/2024 2:03 PM Advance Directives and Living Will 06/21/2017 9:24 AM 01/17/2013 - Living will * DNR (Latest Code Status [...] Comments 11/29/2022 1:31 PM 11/29/2022 4:09 PM Healthcare Agents on File Name Relationship Healthcare Agent Relationship Communication Alexandra Coates ([employer]) Son Health Care Agent Reji Coates Other First Alternate Health Care Agent Angel Coates Other Second Alternate Health Care Agent Care Teams Upholstery Technician Relationship Specialty Start Date End Date Gino Meyer MD [address] [place] [address] PCP - General INTERNAL MEDICINE 06/11/17 Christel Lu MD [address] [place] [address] EP Dye Blender CLINICAL CARDIAC ELECTROPHYSIOLOGY 06/12/23 Toro Freire MD [address] [place] [address] [place] Dye Blender CARDIOVASCULAR DISEASE 10/16/24
--- OUTSIDE RECORDS SUMMARY | 2024-10-22 14:50 | XMS_ITS | Encounter Summary ---
Author Organization [facility] Address [address] [place] [address] Care Team Providers Care Territory Manager General Sales Name Role Phone Santos Fuentes MD Unavailable Unavailabl e Gino Meyer MD Primary Care Provider [phone] Shana Adams NP Unavailable Unavailable Christel Lu MD Unavailable Stella Llanos MD Unavailable Encounter Details Date Type Department Care Team (Late st Contact Info) Description 12/06/2022 Hospital Follow-up Call [facility] [address] [place] [address] Stephie Arreola, RN Social History [...] Sex Assigned at Female 09/01/2024 10:13 AM JUNIOR HIGH SCHOOL PRINCIPAL Legal Sex Female 10:21 PM CDT Gender Identity Not on file Sexual Orientation Not on file Occupation Industry Job Start Date Job End Date retired Not on file Not on file Not on file COVID-19 Exposure Response Date Recorded In the last 10 days, have davy paulino been in contact with someone who was confirmed or suspected to have Coronavirus/COVID-19? No / Unsure 11/29/2022 10:25 AM CDT documented as of this encounter Functional Status * Are you deaf or do you have serious difficulty hearing Answer Date of Assessment Author Status No 11/29/2022 1:48 PM CDT Helga Hallman, R N Active * Are you blind or do you have serious difficulty seeing, even when wearing glasses? Answer Date of Assessment Author Status No 11/29/2022 1:48 PM CDT Helga Hallman A, R N Active * Do you have serious difficulty walking or climbing stairs? Answer Date of Assessment Author Status Yes 11/29/2022 1:48 PM CDT Helga Hallman, R N Active * Do you have difficulty dressing or bathing? Answer Date of Assessment Author Status No 11/29/2022 1:48 PM CDT Helga Hallman, R N Active * Because of a physical, mental, or emotional condition, do you have difficulty doing errands alone such as visiting a doctor's office or shopping? Answer Date of Assessment Author Status No 11/29/2022 1:48 PM CDT Helga Hallman A, R N Active documented as of this [...] Info) Description 10/29/2024 3:30 PM CDT Appointment [facility] [address] [place] [address] Stella Llanos MD [address] [place] [address] 12/07/2024 1:15 AM CDT [facility] [address] [place] [address] Christel Lu MD [address] [place] [address] 12/21/2024 2:30 PM CDT Office Visit [facility] [address] [place] [address] Maciel Wang PATanishaC [address] [place] [address] 12/21/2024 2:30 PM CDT Allied Health/Nurse Visit [facility] [address] [place] [address] Christel Lu MD [address] [place] [address] 03/29/2025 1:00 PM CDT Office Visit [facility] [place] [address] Stella Llanos MD [address] [place] [address] documented as of this encounter Goals Goal Patient Goal Type Associated Problems Recent Progress Patient-Stated? Author Safety Patient/family will have appropriate support at home upon discharge Lifestyle No Merissa Santiago RN Safety Patient/family will have appropriate support at home upon discharge Lifestyle No Elina Lambert, RN documented as of this encounter Visit Diagnoses Not on filedocumented in this encounter Care Teams Territory Manager General Sales Relationship Specialty Start Date End Date Gino Meyer MD [address] [place] [address] PCP - General INTERNAL MEDICINE 06/11/17 Santos Fuentes MD [place] [employer] Artist CARDIOVASCULAR DISEASE 02/06/17 08/31/24 Shana Adams, ANA LUISA [address] [place] [address] Referring Physician Nurse Practitioner Family 02/27/23 Christel Lu MD [address] [place] [address] EP [place] Artist CLINICAL CARDIAC ELECTROPHYSIOLOGY 06/12/23 Stella Llanos MD [address] [place] [address] [place] [employer] Artist CARDIOVASCULAR DISEASE 10/16/24 documented as of this encounter
--- OUTSIDE RECORDS SUMMARY | 2024-10-22 14:50 | XMS_ITS | Encounter Summary ---
Author Organization [facility] Address [address] [place] [address] Care Team Providers Care Cyber Security Specialist Name Role Phone Toy Warren MD Primary Care Provider [phone] Santos Fuentes MD Unavailable Unavailabl e Gino Meyer MD Primary Care Provider [phone] Shana Adams NP Unavailable Unavailable Christel Lu MD Unavailable Stella Llanos MD Unavailable Encounter Details Date Type Department Care Team (Late st Contact Info) Description 03/06/2017 Abstract [facility] [address] [place] [address] Santos Fuentes MD Social History Tobacco Use Types Packs/Day Years Used Date Smoking Tobacco: Never Alcohol Use Standard Drinks/Week Comments No 0 (1 standard drink = 0.6 oz pur e alcohol) Comments Unknown Sex and Gender Information Value Date Recorded Sex Assigned at Female 09/01/2024 10:13 AM SAMPLE PULLER Legal Sex Female 10:21 PM CDT Gender Identity Not on file Sexual Orientation Not on file Occupation Industry Job Start Date Job End Date retired Not on file Not on file Not on file documented as of this encounter Plan of Treatment Upcoming Encounters Date Type Department Care Team (Latest Contact Info) Description 10/29/2024 3:30 PM CDT Appointment [address] [place] [address] Stella Llanos MD [address] [place] [address] 12/07/2024 1:15 AM CDT Allied Health/Nurse Visit [facility] [address] [place] [address] Christel Lu MD [address] [place] [address] 12/21/2024 2:30 PM CDT Office Visit [facility] [address] [place] [address] Maciel Wang, PA-C [address] [place] [address] 12/21/2024 2:30 PM CDT Allied Health/Nurse Visit [facility] [address] [place] [address] Christel Lu MD [address] [place] [address] [phone] 03/29/2025 1:00 PM CDT [facility] [address] [place] [address] Stella Llanos MD [address] [place] [address] documented as of this encounter Visit Diagnoses Not on filedocumented in this encounter Additional Health Concerns Infection Onset Date Last Indicated Resolved Time COVID-19 Rule Out 04/24/2022 04/24/2022 04/24/2022 4:06 AM CDT documented as of this encounter Care Teams Cyber Security Specialist Relationship Specialty Start Date End Date Toy Warren MD [address] [place] [address] PCP - General INTERNAL MEDICINE 02/06/17 06/10/17 Gino Meyer MD [address] [place] [address] PCP - General INTERNAL MEDICINE 06/11/17 Santos Fuentes MD [address] [place] [address] [place] [employer]/Shipper CARDIOVASCULAR DISEASE 02/06/17 08/31/24 Shana Adams NP [address] [place] [address] Referring Physician Nurse Practitioner [facility] 02/27/23 Christel Lu MD [address] [place] [address] EP Logistics/Shipper CLINICAL CARDIAC ELECTROPHYSIOLOGY 06/12/23 Stella Llanos MD [address] [place] [address] [place] [employer]ipper CARDIOVASCULAR DISEASE 10/16/24 documented as of this encounter
--- OUTSIDE RECORDS SUMMARY | 2024-10-22 14:50 | XMS_ITS | Encounter Summary ---
Author Organization [facility] Address [address] [place] [address] Care Team Providers Care Economics Instructor Name Role Phone Santos Fuentes MD Unavailable Unavailabl e Gino Meyer MD Primary Care Provider [phone] Shana Adams NP Unavailable Unavailable Christel Lu MD Unavailable Stella Llanos MD Unavailable Encounter Details Date Type Department Care Team (Late st Contact Info) Description 02/15/2021 Abstract [facility] [address] [place] [phone] Santos Fuentes MD Social History Tobacco Use Types Packs/Day Years Used Date Smoking Tobacco: Never Smokeless Tobacco: Never Alcohol Use Standard Drinks/Week Comments No 0 (1 standard drink = 0.6 oz pur e alcohol) Comments Unknown Sex and Gender Information Value Date Recorded Sex Assigned at Female 09/01/2024 10:13 AM 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 BOARD OF 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 Legal Sex Female 10:21 PM CDT Gender [...] Info) Description 10/29/2024 3:30 PM CDT [address]ointment [address] [place] [address] Stella Llanos MD [address] [place] [address] 12/07/2024 1:15 AM CDT Allied Health/Nurse Visit [facility] [address] [place] [address] Christel Lu MD [address] [place] [address] 12/21/2024 2:30 PM CDT [facility] [address] [place] [address] Maciel Wang PA-C [address] [place] [address] 12/21/2024 2:30 PM CDT Allied Health/Nurse Visit [facility] [address] [place] [address] Christel Lu MD [address] [place] [address] [phone] 03/29/2025 1:00 PM CDT Office Visit [facility] [address] [place] [address] Stella Llanos MD [address] [place] [address] documented as of this encounter Procedures Procedure [...] documented as of this encounter Care Teams Economics Instructor Relationship Specialty Start Date End Date Gino Meyer MD [address] [place] [address] PCP - General INTERNAL MEDICINE 06/11/17 Santos Fuentes MD [place] [facility] Hand CARDIOVASCULAR DISEASE 02/06/17 08/31/24 Shana Adams NP [address] [place] [address] Referring Physician Nurse Practitioner [facility] 02/27/23 Christel Lu MD [address] [place] [address] EP Coil Winder Hand CLINICAL CARDIAC ELECTROPHYSIOLOGY 06/12/23 Stella Llanos MD [address] [place] [address] [place] [facility] [place] Hand CARDIOVASCULAR DISEASE 10/16/24 documented as of this encounter
--- OUTSIDE RECORDS SUMMARY | 2024-10-22 14:51 | XMS_ITS | CONTINUITY OF CARE DOCUMENT ---
Author Name angel, angel Address Unknown Organization [facility] Address [address] [facility] [address] [place] [address] Phone [phone] Care Team Providers Care Organizational Research Consultant Name Role Phone Nav Houser MD Unavailable [...] Coverage type Pam aceves ID MARLENA JUAREZ [employer] insurance Manflu pany [id number] [place] Medicare [id number] TREATMENT PLAN Date Name Performer Cardiology printed [...] Nav Houser MD INTERROGATION REMOTE </90 D MARINE RIGGER REVIEW completed AICD Interrogation, Remote (Prof) Nav [...] Nav Corrina MD INTERROGATION REMOTE </90 D MARINE RIGGER REVIEW completed AICD Interrogation, Remote (Prof) Nav [...] Nav Corrina MD INTERROGATION REMOTE </90 D MARINE RIGGER REVIEW completed AICD Interrogation, Remote (Prof) Nav [...] Nav Corrina MD INTERROGATION REMOTE </90 D MARINE RIGGER REVIEW completed AICD Interrogation, Remote (Prof) Nav [...] Nav Corrina MD INTERROGATION REMOTE </90 D MARINE RIGGER REVIEW completed AICD Interrogation, Remote (Prof) Nav [...] Nav Corrina MD INTERROGATION REMOTE </90 D MARINE RIGGER REVIEW completed AICD Interrogation, Remote (Prof) Nav [...] Nav Corrina MD INTERROGATION REMOTE </90 D MARINE RIGGER REVIEW completed AICD Interrogation, Remote (Prof) Nav [...] Nav Corrina MD INTERROGATION REMOTE </90 D MARINE RIGGER REVIEW completed AICD Interrogation, Remote (Prof) Nav [...] Nav Corrina MD INTERROGATION REMOTE </90 D MARINE RIGGER REVIEW completed AICD Interrogation, Remote (Prof) Nav [...]
== END 2024-10-22 13:30 | disposition home or self-care (01) ==
LOC: CHSHH 13:30
PROVIDERS: PCP Internal Medicine; Visit Provider Nurse Practitioner Family
DX: I50.9 Heart failure, unspecified (principal); I25.10 Atherosclerotic heart disease of native coronary artery without angina pectoris; R60.9 Edema, unspecified
CPT/HCPCS: 36415; 80053; 80162; 83735; 83880

== ENCOUNTER 2024-10-29 10:47 | Outpatient (NON) | payer MEDICARE, SELFPAY ==
[2024-10-29 11:36] LABS: Alanine Aminotransferase 12 U/L (6-35); Albumin Level 3.8 g/dL (3.5-5.1); Alkaline Phosphatase 83 U/L (38-126); Anion Gap 12 mmol/L (4-12); Aspartate Amino Transferase 24 U/L (14-36); Bilirubin,Total 0.8 mg/dL (0.2-1.3); Blood Urea Nitrogen 27 mg/dL (7-17); Calcium 8.8 mg/dL (8.4-10.2); Carbon Dioxide 23 mmol/L (22-30); Chloride 99 mmol/L (98-107); Estimated Glomerular Filt Rate 41; Glucose 155 mg/dL (65-110); Potassium 4.6 mmol/L (3.4-5.0); Sodium 134 mmol/L (137-145)
[2024-10-29 11:46] LABS: NT Pro B Type Natriuretic Pept 8650 pg/mL (19.9-100)
--- OUTSIDE RECORDS SUMMARY | 2024-10-29 12:42 | XMS_ITS | Clinical Summary ---
Author Organization [facility] Address [address] [place] [address] Care Team Providers Care Fisheries Director Name Role Phone Gino Meyer MD Primary Care Provider [phone] Christel Lu MD Unavailable Toro Freire MD [...] carvedilol (COREG) 12.5 MG tabletIndicatio ns:Atrial fibrillation ([facility] HHS/HCC) TAKE ONE TABLET BY MOUTH TWICE A DAY 60 tablet 3 09/30/19 25 Active carvedilol (COREG) 12.5 MG tabletIndicatio ns:Atrial fibrillation ([facility] HHS/HCC) Take 1 tablet (12.5 mg total) by mouth 2 (two) times daily. 60 tablet 08/11/20 24 025 Discontinued Active Problems Problem Noted Date Diagnosed Date Breast cancer ([facility]) 07/23/2023 S/P coronary artery stent placement 03/18/2021 Mixed hyperlipidemia 07/10/2017 Stage 2 chronic kidney disease 06/14/2014 Non-ischemic cardiomyopathy ([facility]) AICD (automatic cardioverter/defibrillator) pres ent Hypertension Coronary artery disease Systolic heart failure ([facility]) Resolved Problems Problem Noted Date Diagnosed Date Resolved Date Hypotension due to hypovolemia 04/25/2022 06/13/2023 Obesity (BMI 30-39.9) 07/10/20172021 Encounters Date Type Department Care Team Description 10/16/2024 Telephone [facility] ie [address] [place] [address] Toro Freire MD Schedule Test 10/12/2024 3:45 PM POWDERMAN Office Visit [facility] [address] [place] [address] Toro Freire MD 10/12/2024 2:59 PM POWDERMAN - 10/12/2024 11:59 PM POWDERMAN Hospital Encounter [facility] [address] [place] [address] Toro Freire MD Discharge Disposition: Home or Self Care (Routine Discharge) 10/12/2024 Travel 10/08/2024 Orders Only [facility] [address] [place] [address] Toro Freire MD 10/07/2024 Telephone [facility] [address] [place] [address] Toro Freire MD Appointment Reminder 10/02/2024 Telephone [facility] [address] [place] [address] Jaida Yee, JAYDEN, BOTTOM STOP ATTACHER-C Lab Results; Lab Order 09/30/2024 Telephone [facility] [address] [place] [address] Christel Lu MD Appointment Request 09/24/2024 Telephone [facility] [address] [place] [address] [phone] Jaida Yee APRN, BOTTOM STOP ATTACHER-C Follow Up Call 09/24/2024 Orders Only [facility] [address] [place] [address] [phone] Heidy Landers LPN 09/22/2024 Abstract [facility] [address] [place] [address] Jaida Yee APRN, BOTTOM STOP ATTACHER-C 09/22/2024 Telephone [facility] [address] [place] [address] Jaida Yee APRN, BOTTOM STOP ATTACHER-C Other 09/16/2024 10:39 AM POWDERMAN - 09/16/2024 11:59 PM POWDERMAN Hospital Encounter [facility] [address] [place] [address] Barbi Day, TRANSITIONAL LIVING SPECIALIST Discharge Disposition: Home or Self Care (Routine Discharge) 09/16/2024 Travel 09/16/2024 Telephone [facility] [address] [place] [address] [phone] Jaida Yee APRN, BOTTOM STOP ATTACHER-C Question 09/10/2024 Telephone [facility] [address] [place] [address] Jaida Yee APRN, BOTTOM STOP ATTACHER-C Follow Up Call 09/10/2024 Abstract [facility] [address] [place] [address] Abstract, Doc Pccl 09/08/2024 11:00 AM POWDERMAN Office Visit [facility] [address] [place] [address] Jaida Yee APRN, BOTTOM STOP ATTACHER-C Follow Up; CHF 09/08/2024 Telephone [facility] [address] [place] [address] Toro Freire MD Appointment Request 09/08/2024 Telephone [facility] [address] [place] [address] Jaida Yee APRN BOTTOM STOP ATTACHER-C Referral 09/08/2024 Travel 09/01/2024 11:15 AM POWDERMAN Allied Health/Nurse Visit [facility] [address] [place] [address] Christel Lu MD 09/01/2024 11:15 AM POWDERMAN Office Visit [facility] [address] [place] [address] Christel Lu MD Follow Up; Cardiac Device Management; Atrial Fibrillation 09/01/2024 Orders Only [facility] [address] [place] [address] Jaida Yee APRN BOTTOM STOP ATTACHER-Angeli 09/01/2024 Telephone [facility] [address] [place] [address] Jaida Yee APRN, BOTTOM STOP ATTACHER-C Appointment Request 09/01/2024 Travel 08/31/2024 Scan [facility] [address] [place] [address] Scanned, Doc Pccl 08/31/2024 Orders Only [facility] [address] [place] [address] Christel Lu MD 08/31/2024 Telephone [facility] [address] [place] [address] Christel Lu MD Record Request 08/30/2024 Scan [facility] [address] [place] [address] Scanned, Doc Pccl 08/28/2024 Scan [facility] [address] [place] [address] Scanned, Doc Pccl ECG (SCAN) 08/28/2024 Scan [facility] [address] [place] [address] Scanned, Doc Pccl 08/28/2024 Telephone [facility] [address] [place] [address] Christel Lu MD Record Request 08/25/2024 Telephone [facility] [address] [place] [address] Christel Lu MD Reschedule 08/20/2024 Orders Only [facility] [address] [place] [address] Christel Lu MD 08/10/2024 Telephone [facility] [address] [place] [address] Christel Lu MD Appointment Request from Last [...] place to sleep or slept in a mcc (including now)? Yes 11/29/2022 Comments No Sex and Gender Information Value Date Recorded Sex Assigned at Female 09/01/2024 10:13 AM POWDERMAN Legal Sex Female 10:21 PM CDT Gender Identity Not on file Sexual Orientation Not on file Occupation Industry Job Start Date Job End Date retired Not on file Not on file Not on file Last Filed Vital Signs Vital Sign Reading Time Taken Comments Blood Pressure 110/60 10/12/2024 2:53 PM POWDERMAN Pulse 105 10/12/2024 2:53 PM POWDERMAN Temperature 36.8 C (98.2 F) 08/30/2023 12:39 PM POWDERMAN Respiratory Rate 16 10/12/2024 2:53 PM POWDERMAN Oxygen Saturation 100% 10/12/2024 2:53 PM POWDERMAN Inhaled Oxygen Concentration - - Weight 80.7 kg (178 lb) 10/12/2024 2:53 PM POWDERMAN Height 152.4 cm (5') 10/12/2024 2:53 PM POWDERMAN Body Mass Index 34.76 10/12/2024 2:53 PM POWDERMAN Plan of Treatment Upcoming Encounters Date Type Department Care Team (Latest Contact Info) Description 10/29/2024 3:30 PM CDT Appointment [facility] [address] [place] [address] Toro Freire MD [address] [place], [place] [address] 12/07/2024 1:15 AM CDT Allied Health/Nurse Visit [facility] [address] [place] [address] Christel Lu MD [address] [place] [address] 12/21/2024 2:30 PM CDT Office Visit [facility] [address] [place] [address] Maciel Wang, ERIKAC [address] [place] [address] 12/21/2024 2:30 PM CDT Allied Health/Nurse Visit [facility] [address] [place] [address] Christel Lu MD [address] [place] [address] 03/29/2025 1:00 PM CDT Office Visit [facility] [place] [address] Toro Freire MD [address] [place], [place] [address] Health Maintenance Due Date Last Done Comments [...] Lambert RN Medical Devices Implanted Type Area Ctrs Device Identifier Shelf Expiration Date Model / Serial / Lot [employer] Vigilant El Dr-08/30/2023 Implanted:Qty: 1 on 08/30/2023 by Christel Lu MD ICD [employer] 12/28/2024 [id number] / [id number] / Description:DX: NICM MRI Conditional under following conditions: Static magnetic field of 1.5 T or 3 T, Max spatial gradient field of 5000 Gauss/cm or less, Max slew rate 200 T/m/s , WHOLE BODY TERESO OF 2 W/KG OR LESS, HEAD TERESO 3.2 W/KG OR LESS , Supine or Prone only [employer] Ra-08/30/2023 Implanted:Qty: 1 on 08/30/2023 by Christel Lu MD Lead Implant [employer] 01/04/2025 [id number] / [id number] / [employer] Rv-08/30/2023 Implanted:Qty: 1 on 08/30/2023 by Christel Lu MD Lead Implant [employer] 04/08/2024 [id number] / [id number] / Cv Synergy Xd Jose-Lad- 021 Implanted:02/18 by Russell Bentley MD (Quantity not on file) Stent Coronary LAD [employer] 10/05/2022 [id number] / / [id number] Cv [employer]nergy Xd Jose-[place]-2020 Implanted:02/18 by Russell Bentley MD (Quantity not on file) Stent Coronary LAD [employer] 11/17/2022 [id number] / / [id number] Procedures Procedure Name Priority Date/Time Associated Diagnosis Comments ECG 12-LEAD Routine 10/12/2024 3:21 PM POWDERMAN Non-ischemic cardiomyopathy (CMS/HCC HHS/HCC) BASIC METABOLIC PANEL Routine 09/24/2024 terminal superintendent use of drug BASIC METABOLIC PANEL Routine 09/18/2024 halfway use of drug BASIC METABOLIC PANEL Routine 09/09/2024 ELECTROCARDIOGRAM (NON MIDMARK ACQUIRED) Routine 09/01/2024 10:27 AM POWDERMAN Atrial fibrillation, unspecified type (CMS/HCC HHS/HCC) AICD (automatic cardioverter/defibri llator) present COMPREHENSIVE METABOLIC PANEL Routine 08/31/2024 CBC, MANUAL DIFF Routine 08/31/2024 ECG GENERIC (SCAN ORDER) Routine 025 12:00 AM POWDERMAN LIPID PANEL Routine 03/27/2021 10:35 AM CDT halfway use of drug Hyperlipidemia, unspecified hyperlipidemia type from Last 3 Months or Most Recently Relevant to Health Maintenance Results * ECG 12 lead (HOSPITAL PERFORMED ONLY) (10/12/2024 3:21 PM POWDERMAN) 10/12/2024 3:21 PM POWDERMAN Narrative [facility] - 10/12/2024 6:34 PM POWDERMAN [address] [place] [address] Test Date: 2024-10-12 Pat Name: JENNIFER CABALLERORINE Department: 3 Room: Gender: Female Manager Hiv: : 1940 Requested By: TORO FREIRE Order Number: [id number] Reading MD: Toro Freire Measurements Intervals [place] Rate: 107 P: 69 MI: 160 QRS: 148 QRSD: 120 T: -2 QT: 356 QTc: 477 Interpretive Statements SINUS TACHYCARDIA WITH OCCASIONAL VENTRICULAR PREMATURE COMPLEXES POSSIBLE RIGHT VENTRICULAR HYPERTROPHY [SOME/ALL OF: PROMINENT R IN V1, LATE TRANSITION, RAD, BONILLA, SSS] POSSIBLE ANTERIOR MYOCARDIAL INFARCTION [30 ms Q WAVE IN V3/V4, OR R < 0.2 mV IN V4], PROBABLY OLD ERMAN Procedure Note Toro Freire MD - 10/12/2024 [place] [address] [facility] [place] [address] Test Date: 2024-10-12 Pat Name: JENNIFER COATES Department: 3 Room: Gender: Female Manager Hiv: : 1940 Requested By: TORO FREIRE Order Number: [id number] Reading MD: Toro Freire Measurements Intervals [place] Rate: 107 P: 69 MI: 160 QRS: 148 QRSD: 120 T: -2 QT: 356 QTc: 477 Interpretive Statements SINUS TACHYCARDIA WITH OCCASIONAL VENTRICULAR PREMATURE COMPLEXES POSSIBLE RIGHT VENTRICULAR HYPERTROPHY [SOME/ALL OF: PROMINENT R IN V1,LATE TRANSITION, RAD, BONILLA, SSS] POSSIBLE ANTERIOR MYOCARDIAL INFARCTION [30 ms Q WAVE IN V3/V4, OR R < 0.2mV IN V4], PROBABLY OLD ERMAN us Toro Freire MD ECG ORDERABLES Final Result [facility] * (ABNORMAL) BASIC METABOLIC PANEL (09/24/2024) [...] Final Result * ELECTROCARDIOGRAM (09/01/2024 10:27 AM POWDERMAN) 09/01/2024 10:2 7 AM POWDERMAN Narrative [facility] - 09/07/2024 7:54 AM POWDERMAN [facility] [address] [place] [address] Test Date: 2024-09-01 Pat Name: JENNIFER COATES Department: 105 Room: Gender: Female Manager Hiv: GIO : 1940 Requested By: CHRISTEL LU Order Number: [id number] Reading MD: Christel Lu Measurements Intervals [place] Rate: 91 P: 44 MI: 185 QRS: -54 QRSD: 115 T: 123 QT: 368 QTc: 455 Interpretive Statements SINUS RHYTHM LEFT AXIS DEVIATION MODERATE INTRAVENTRICULAR CONDUCTION DELAY ST DEVIATION AND MODERATE T-WAVE ABNORMALITY, CONSIDER LATERAL ISCHEMIA ERMAN Procedure Note Christel Lu MD - 09/07/2024 [facility] [address] [place] [address] Test Date: 2024-09-01 Pat Name: JENNIFER COATES Department: 105 Room: Gender: Female Manager Hiv: GIO : 1940 Requested By: CHRISTEL LU Order Number: [id number] Reading MD: Christel Lu Measurements Intervals [place] Rate: 91 P: 44 MI: 185 QRS: -54 QRSD: 115 T: 123 QT: 368 QTc: 455 Interpretive Statements SINUS RHYTHM LEFT AXIS DEVIATION MODERATE INTRAVENTRICULAR CONDUCTION DELAY ST DEVIATION AND MODERATE T-WAVE ABNORMALITY, CONSIDER LATERAL ISCHEMIA ERMAN Christel Lu MD PROCEDURES-ORDERABLE NO CHARGE F inal Result [facility] * (ABNORMAL) COMPREHENSIVE METABOLIC PANEL (08/31/2024) SODIUM S/P/B 138 GLUCOSE 103 mg/dL AST 31 BUN 27 CREATININE S/P/B 1.23(A) 0.5 - 1.0 CALCIUM S/P/B 8.0 POTASSIUM S/P/B 3.8 CHLORIDE S/P/B 102 ALT 21 GFR ESTIMATE 42 Narrative Resulting Agency Comment [facility] us Default History Genericprovider LABORATORY Final Result * CBC, MANUAL DIFF (08/31/2024) WBC 7.4 HGB 10.8 HCT 35.8 PLT 231 Narrative Resulting Agency Comment [facility] us Default History Genericprovider LABORATORY Final Result * ECG (08/28/2024 12:00 AM POWDERMAN) 08/28/2024 us Doc Pccl Scanned SCANNING Final Result [facility] * LIPID PANEL (03/27/2021 10:35 AM CDT) CHOLESTEROL 201 MG/DL 03/27/2021 11:16 AM CDT [facility] Comment:BORDERLINE HIGH: 200 -239 TRIGLYCERIDES 175 MG/DL 03/27/2021 11:16 AM CDT [facility] Comment:150-199 BORDERLINE H IGH HDL 56 >49 MG/DL 03/27/2021 11:16 AM CDT [facility] LDL (CALCULATED) 110 MG/DL 03/27/20 11:16 AM CDT [facility] Comment:100-129 NEAR OR ABOV E OPTIMAL VLDL CALCULATION 35 MG/DL 03/27/20 11:16 AM CDT [facility] Comment:REFERENCE RANGE NOT ESTABLISHED CHOL/HDL RATIO 3.6 03/27/2021 11:16 AM CDT [facility] Comment:REFERENCE RANGE NOT ESTABLISHED LDL/HDL 2.0 03/27/2021 11:16 AM CDT [facility] Comment:REFERENCE RANGE NOT ESTABLISHED NON HDL CHOLESTEROL 145 MG/DL 03/27/2021 11:16 AM CDT [facility] Comment:REFERENCE RANGE NOT ESTABLISHED 03/27/2021 10:3 5 AM CDT us POLLO Brand APRN LABORATORY Final Result [facility] [address] [place] [address], [id number] from Last 3 Months or Most Recently Relevant to Health Maintenance Insurance MEDICAID MEDICAID Advance Directives Documents on File Type Date Recorded Patient Protective Services Case Worker Expl anation Power of Instrumentation Fitter 10/21/2024 2:16 PM 2012 - ALEXANDRA COATES, [...] Relationship Healthcare Agent Relationship Communication Alexandra Coates ([facility]) Son Health Care Agent Reji Coates Other First Alternate Health Care Agent Angel Coates Other Second Alternate Health Care Agent Care Teams Fisheries Director Relationship Specialty Start Date End Date Gino Meyer MD [address] [place] [address] PCP - General INTERNAL MEDICINE 06/11/17 Christel Lu MD [address] [place] [address] EP Poultry Eviscerator CLINICAL CARDIAC ELECTROPHYSIOLOGY 06/12/23 Toro Freire MD [address] [place] [address] Manito Poultry Eviscerator CARDIOVASCULAR DISEASE 10/16/24
--- OUTSIDE RECORDS SUMMARY | 2024-10-29 12:42 | XMS_ITS | Encounter Summary ---
Author Organization [facility] Address [address] [place] [address] Care Team Providers Care Guest Services Officer Name Role Phone Santos Fuentes MD Unavailable Unavailabl e Gino Meyer MD Primary Care Provider [phone] Shana Adams NP Unavailable Unavailable Christel Lu MD Unavailable Stella Llanos MD Unavailable Encounter Details Date Type Department Care Team (Late st Contact Info) Description 02/15/2021 Abstract [facility] [address] [place] [address] Santos Fuentes MD Social History Tobacco Use Types Packs/Day Years Used Date Smoking Tobacco: Never Smokeless Tobacco: Never Alcohol Use Standard Drinks/Week Comments No 0 (1 standard drink = 0.6 oz pur e alcohol) Comments Unknown Sex and Gender Information Value Date Recorded Sex Assigned at Female 09/01/2024 10:13 AM PERMANENT WAVER Legal Sex Female 10:21 PM CDT Gender [...] Info) Description 10/29/2024 3:30 PM CDT [address]ment [address] [place] [address] Stella Llanos MD [address] [place] [address] 12/07/2024 1:15 AM CDT Allied Health/[facility] [address] [place] [address] Christel Lu MD [address] [place] [address] 12/21/2024 2:30 PM CDT [facility] [address] [place] [address] Maciel Wang PA-C [address] [place] [address] 12/21/2024 2:30 PM CDT Allied Health/Nurse Visit [facility] [address] [place] [address] Christel Lu MD [address] [place] [address] [phone] 03/29/2025 1:00 PM CDT Office Visit [facility] [address] [place] [address] Stella Llanos MD [address] [place] [address] documented as of this encounter Procedures Procedure [...] documented as of this encounter Care Teams Guest Services Officer Relationship Specialty Start Date End Date Gino Meyer MD [address] [place] [address] PCP - General INTERNAL MEDICINE 06/11/17 Santos Fuentes MD [facility] Fund Manager CARDIOVASCULAR DISEASE 02/06/17 08/31/24 Shana Adams NP [address] [place] [address] Referring Physician Nurse Practitioner [facility] 02/27/23 Christel Lu MD [address] [place] [address] EP Fund Manager CLINICAL CARDIAC ELECTROPHYSIOLOGY 06/12/23 Stella Llanos MD [address] [place] [address] [facility] Fund Manager CARDIOVASCULAR DISEASE 10/16/24 documented as of this encounter
--- OUTSIDE RECORDS SUMMARY | 2024-10-29 12:42 | XMS_ITS | Encounter Summary ---
Author Organization [facility] Address [address] [place] [address] Care Team Providers Care Chemistry Specialist Name Role Phone Toy Warren MD Primary Care Provider [phone] Santos Fuentes MD Unavailable Unavailabl e Gino Meyer MD Primary Care Provider [phone] Shana Adams NP Unavailable Unavailable Christel Lu MD Unavailable Stella Llanos MD Unavailable Encounter Details Date Type Department Care Team (Late st Contact Info) Description 03/06/2017 Abstract [facility] [address] [place] [address] Santos Fuentes MD Social History Tobacco Use Types Packs/Day Years Used Date Smoking Tobacco: Never Alcohol Use Standard Drinks/Week Comments No 0 (1 standard drink = 0.6 oz pur e alcohol) Comments Unknown Sex and Gender Information Value Date Recorded Sex Assigned at Female 09/01/2024 10:13 AM 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 PRINTING Legal Sex Female 10:21 PM CDT Gender Identity Not on file Sexual Orientation Not on file Occupation Industry Job Start Date Job End Date retired Not on file Not on file Not on file documented as of this encounter Plan of Treatment Upcoming Encounters Date Type Department Care Team (Latest Contact Info) Description 10/29/2024 3:30 PM CDT Appointment [address] [place] [address] Stella Llanos MD [address] [place] [address] 12/07/2024 1:15 AM CDT Allied Health/Nurse Visit [facility] [address] [place] [address] Christel Lu MD [address] [place] [address] 12/21/2024 2:30 PM CDT Office Visit [facility] [address] [place] [address] Maciel Wang, PA-C [address] [place] [address] 12/21/2024 2:30 PM CDT Allied Health/Nurse Visit [facility] [address] [place] [address] Christel Lu MD [address] [place] [address] [phone] 03/29/2025 1:00 PM CDT [facility] [address] [place] [address] Stella Llanos MD [address] [place] [address] documented as of this encounter Visit Diagnoses Not on filedocumented in this encounter Additional Health Concerns Infection Onset Date Last Indicated Resolved Time COVID-19 Rule Out 04/24/2022 04/24/2022 04/24/2022 4:06 AM CDT documented as of this encounter Care Teams Chemistry Specialist Relationship Specialty Start Date End Date Toy Warren MD [address] [place] [address] PCP - General INTERNAL MEDICINE 02/06/17 06/10/17 Gino Meyer MD [address] [place] [address] PCP - General INTERNAL MEDICINE 06/11/17 Santos Fuentes MD [address] [place] [address] [place] [employer] Specialist CARDIOVASCULAR DISEASE 02/06/17 08/31/24 Shana Adams NP [address] [place] [address] Referring Physician Nurse Practitioner [facility] 02/27/23 Christel Lu MD [address] [place] [phone] EP Cam Specialist CLINICAL CARDIAC ELECTROPHYSIOLOGY 06/12/23 Stella Llanos MD [address] [place] [address] [employer] Specialist CARDIOVASCULAR DISEASE 10/16/24 documented as of this encounter
--- OUTSIDE RECORDS SUMMARY | 2024-10-29 12:42 | XMS_ITS | Encounter Summary ---
Author Organization [facility] Address [address] [place] [address] Care Team Providers Care Data Review Specialist Name Role Phone Toy Warren MD Primary Care Provider [phone] Santos Fuentes MD Unavailable Unavailabl e Gino Meyer MD Primary Care Provider [phone] Shana Adams NP Unavailable Unavailable Christel Lu MD Unavailable Stella Llanos MD Unavailable Encounter Details Date Type Department Care Team (Late st Contact Info) Description 01/31/2017 Abstract [facility] [address] [place] [address] Santos Fuentes MD Social History Tobacco Use Types Packs/Day Years Used Date Smoking Tobacco: Never Alcohol Use Standard Drinks/Week Comments No 0 (1 standard drink = 0.6 oz pur e alcohol) Comments Unknown Sex and Gender Information Value Date Recorded Sex Assigned at Female 09/01/2024 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 Legal Sex Female 10:21 PM CDT Gender Identity Not on file Sexual Orientation Not on file Occupation Industry Job Start Date Job End Date retired Not on file Not on file Not on file documented as of this encounter Plan of Treatment Upcoming Encounters Date Type Department Care Team (Latest Contact Info) Description 10/29/2024 3:30 PM CDT Appointment [address] [place] [address] Stella Llanos MD [address] [place] [address] 12/07/2024 1:15 AM CDT Allied Health/Nurse Visit [facility] [address] [place] [address] Christel Lu MD [address] [place] [phone] 12/21/2024 2:30 PM CDT Office Visit [facility] [address] [place] [address] Maciel Wang, PA-C [address] [place] [address] 12/21/2024 2:30 PM CDT Allied Health/Nurse Visit [facility] [address] [place] [address] Christel Lu MD [address] [place] [address] [phone] 03/29/2025 1:00 PM CDT [facility] [address] [place] [address] Stella Llanos MD [address] [place] [address] documented as of this encounter Visit Diagnoses Not on filedocumented in this encounter Additional Health Concerns Infection Onset Date Last Indicated Resolved Time COVID-19 Rule Out 04/24/2022 04/24/2022 04/24/2022 4:06 AM CDT documented as of this encounter Care Teams Data Review Specialist Relationship Specialty Start Date End Date Toy Warren MD [address] [place] [address] PCP - General INTERNAL MEDICINE 02/06/17 06/10/17 Gino Meyer MD [address] [place] [address] PCP - General INTERNAL MEDICINE 06/11/17 Santos Fuentes MD [address] [place] [address] [place] Ship/Rec/Doc Control CARDIOVASCULAR DISEASE 02/06/17 08/31/24 Shana Adams NP [address] [place] [address] Referring Physician Nurse Practitioner [facility] 02/27/23 Christel Lu MD [address] [place] [phone] EP Ship/Rec/Doc Control CLINICAL CARDIAC ELECTROPHYSIOLOGY 06/12/23 Stella Llanos MD [address] [place] [address] [place] Ship/Rec/Doc Control CARDIOVASCULAR DISEASE 10/16/24 documented as of this encounter
--- OUTSIDE RECORDS SUMMARY | 2024-10-29 12:42 | XMS_ITS | Encounter Summary ---
Author Organization [facility] Address [address] [place] [address] Care Team Providers Care Management Accountant Name Role Phone Santos Fuentes MD Unavailable Unavailabl e Gino Meyer MD Primary Care Provider [phone] Shana Adams NP Unavailable Unavailable Christel Lu MD Unavailable Stella Llanos MD Unavailable Encounter Details Date Type Department Care Team (Late st Contact Info) Description 12/06/2022 Hospital Follow-up Call [facility] [address] [place] [address] Stephie Arreola, RN Social History [...] place to sleep or slept in a fpc (including now)? 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 Legal Sex Female 10:21 PM CDT Gender [...] Info) Description 10/29/2024 3:30 PM CDT Appointment [facility] [address] [place] [address] Stella Llanos MD [address] [place] [address] 12/07/2024 1:15 AM CDT [facility] [address] [place] [address] Christel Lu MD [address] [place] [address] 12/21/2024 2:30 PM CDT [facility] [address] [place] [address] Maciel Wang PATanishaC [address] [place] [address] 12/21/2024 2:30 PM CDT [facility] [address] [place] [address] Christel Lu MD [address] [place] [address] 03/29/2025 1:00 PM CDT Office Visit [facility] [place] [address] Stella Llanos MD [address] [place] [address] documented as of this encounter Goals Goal Patient Goal Type Associated Problems Recent Progress Patient-Stated? Author Safety Patient/family will have appropriate support at home upon discharge Lifestyle No Merissa Santiago RN Safety Patient/family will have appropriate support at home upon discharge Lifestyle No Elina Lambert, RN documented as of this encounter Visit Diagnoses Not on filedocumented in this encounter Care Teams Management Accountant Relationship Specialty Start Date End Date Gino Meyer MD [address] [place] [address] PCP - General INTERNAL MEDICINE 06/11/17 Santos Fuentes MD [place] Watch Repairer Apprentice CARDIOVASCULAR DISEASE 02/06/17 08/31/24 Shana Adams, ANA LUISA [address] [place] [address] Referring Physician Nurse Practitioner Family 02/27/23 Christel uL MD [address] [place] [address] EP Watch Repairer Apprentice CLINICAL CARDIAC ELECTROPHYSIOLOGY 06/12/23 Stella Llanos MD [address] [place] [address] [employer] Watch Repairer Apprentice CARDIOVASCULAR DISEASE 10/16/24 documented as of this encounter
[2024-10-29 16:51] LABS: Digoxin < 0.2 ng/mL (0.9-2.0)
== END 2024-10-29 10:48 | disposition home or self-care (01) ==
LOC: HOME HLTH 10:50
PROVIDERS: PCP Internal Medicine; Visit Provider Internal Medicine
DX: N18.9 Chronic kidney disease, unspecified (principal); I13.0 Hypertensive heart and chronic kidney disease with heart failure and stage 1 through stage 4 chronic kidney disease, or unspecified chronic kidney disease; I50.1 Left ventricular failure, unspecified; R60.9 Edema, unspecified; I25.10 Atherosclerotic heart disease of native coronary artery without angina pectoris
CPT/HCPCS: 80053; 80162; 83880

== ENCOUNTER 2024-10-30 17:08 | Inpatient (IN) | payer MEDICARE, SELFPAY ==
--- NOTE | ~2024-10-30 | XR_ITS ---
XR chest 1V portable Ordering provider: Bennett Tyler MD History: 84 years Female with . Chest pain/ dyspnea . Comparison: August 28, 2024 FINDINGS: MEDIASTINUM: The cardiac silhouette is slightly enlarged. Right bipolar pacemaker. Congestive osmar. LUNGS: No pneumothorax. Bilateral basal opacification suggestive of atelectasis versus pneumonia with bilateral pleural effusion more on the left. Underlying emphysematous changes. OTHER: No free air under the diaphragm. Degenerative changes of the spine. IMPRESSION: Bilateral basal atelectasis versus pneumonia with bilateral pleural effusion. Underlying pulmonary ed erika is not excluded. Reviewed, dictated and finalized at location A. IMPRESSION: Bilateral basal atelectasis versus pneumonia with bilateral pleural effusion. U nderlying pulmonary edema is not excluded.
--- NOTE | ~2024-10-30 | CT_ITS ---
CT diagnostic chest wo con Ordering provider: Bennett Tyler MD History: 84 years Female with . Chest pain/Dyspnea . Comparison: March 12, 2023 Technique: CT chest without IV contrast. Radiation reduction technique utilized.The dose-length product was 255.77 mGy-cm. FINDINGS: VISUALIZED THORACIC INLET: Normal. MEDIASTINUM: Aorta/coronary arteries: Mild atheromatous disease. Ascending aorta measures 3.1 cm. Heart/other: The heart is moderately enlarged. Lymph nodes: No mediastinal or hilar adenopathy. Paratracheal lymph nodes are seen with the largest m easuring 1.2 cm. LUNGS: Large bilateral pleural effusion with adjacent atelectasis Atelectatic changes in the left upp er lobe with thickening of the pleura measuring 1 cm. Soft tissue density also seen in the left apica l area which may be atelectatic or mass is seen measuring 1.8 x 1.1 centimeter. Normal No pneumothora x. VISUALIZED UPPER ABDOMEN: Hypodensity in the left lobe of the liver unchanged from previous examinati on. Atrophic pancreas. Otherwise, the visualized upper abdomen is normal. MUSCULOSKELETAL: Soft tissues: Right anterior chest wall pacemaker The superficial soft tissues are normal. Bones: Age appropriate degenerative changes of the spine. IMPRESSION: 1. Bilateral moderate to pleural effusion with adjacent atelectasis. 2. Soft tissue density in the left apical area which may be atelectatic or nodule. Follow-up advise d. Pleural thickening is also seen in the left upper lobe area anteriorly. Follow-up advised. 3. Borderline left lymph nodes in the paratracheal and precarinal areas 4. Cardiomegaly Reviewed, dictated and finalized at location A. IMPRESSION: 1. Bilateral moderate to pleural effusion with adjacent atelectasis. 2. Soft tissue density in the left apical area which may be atelectatic or no dule. Follow-up advised. Pleural thickening is also seen in the left upper lobe area anteriorly. Follow-up advised. 3. Borderline left lymph nodes in the paratracheal and precarinal areas 4. Cardiomegaly
--- OUTSIDE RECORDS SUMMARY | 2024-10-30 17:11 | XMS_ITS | Encounter Summary ---
Author Organization [facility] Address [address] [place] [address] Care Team Providers Care Bait Digger Name Role Phone Santos Fuentes MD Unavailable Unavailabl e Gino Meyer MD Primary Care Provider [phone] Shana Adams NP Unavailable Unavailable Christel Lu MD Unavailable Stella Llanos MD Unavailable Encounter Details Date Type Department Care Team (Late st Contact Info) Description 02/15/2021 Abstract [facility] [address] [place] [address] Santos Fuentes MD Social History Tobacco Use Types Packs/Day Years Used Date Smoking Tobacco: Never Smokeless Tobacco: Never Alcohol Use Standard Drinks/Week Comments No 0 (1 standard drink = 0.6 oz pur e alcohol) Comments Unknown Sex and Gender Information Value Date Recorded Sex Assigned at Female 09/01/2024 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 Legal Sex Female 10:21 PM CDT Gender [...] Care Team (Late st Contact Info) Description 12/07/2024 1:15 AM CDT Allied Health/Nurse Visit [facility] [address] [place] [address] Christel Lu MD [address] [place] [address] 12/21/2024 2:30 PM CDT Office Visit [facility] [address] [place] [address] Maciel Wang, PA-C [address] [place] [address] 12/21/2024 2:30 PM CDT Allied Health/Nurse Visit [facility] [address] [place] [address] Christel Lu MD [address] [place] [address] 03/29/2025 1:00 PM CDT [facility] [place] [address] Stella Llanos MD [address] [place] [address] documented as of this encounter Procedures Procedure [...] documented as of this encounter Care Teams Bait Digger Relationship Specialty Start Date End Date Gino Meyer MD [address] [place] [address] PCP - General INTERNAL MEDICINE 06/11/17 Santos Fuentes MD [place] Trailhead Maintenance Worker CARDIOVASCULAR DISEASE 02/06/17 08/31/24 Shana Adams NP [address] [place] [address] Referring Physician Nurse Practitioner Family 02/27/23 Christel Lu MD [address] [place] [address] EP Trailhead Maintenance Worker CLINICAL CARDIAC ELECTROPHYSIOLOGY 06/12/23 Stella Llanos MD [address] [place] [address] [place] Trail[employer] Maintenance Worker CARDIOVASCULAR DISEASE 10/16/24 documented as of this encounter
--- OUTSIDE RECORDS SUMMARY | 2024-10-30 17:11 | XMS_ITS | CONTINUITY OF CARE DOCUMENT ---
Author Name angel, angel Address Unknown Organization [facility] Address [address] [address] [place] [address] Phone [phone] Care Team Providers Care Occupational Safety And Health Manager Name Role Phone Nav Houser MD Unavailable KENNEDY SARMIENTO MD Unavailable [phone] KENNEDY SARMIENTO MD Unavailable PROBLEMS Condition [...] MD blood pressure, diastolic 74 mm[Hg] Us indar Houser MD blood pressure, systolic 124 mm[Hg] [...] revi ewed - no changes required Nav Huoser MD smoking status Never smoker Nav Houser [...] Coverage type Pam aceves ID MARLENA JUAREZ 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 [employer] pany [id number] [place] MEDICARE Medicare [id number] TREATMENT PLAN Date Name Performer Cardiology printed to matias Houser MD Follow-up faxed to yazmin onela: H er updated medication list for this [...] Nav Houser MD INTERROGATION REMOTE </90 D PROCESSING ANALYST REVIEW completed AICD Interrogation, Remote (Prof) Nav [...] Nav Corrina MD INTERROGATION REMOTE </90 D PROCESSING ANALYST REVIEW completed AICD Interrogation, Remote (Prof) Nav [...] SYS completed AICD Interrogation, Remote (Tech) Nav Crorina MD INTERROGATION REMOTE </90 D PROCESSING ANALYST REVIEW completed AICD Interrogation, Remote (Prof) Nav [...] Nav Corrina MD INTERROGATION REMOTE </90 D PROCESSING ANALYST REVIEW completed AICD Interrogation, Remote (Prof) Nav [...] Nav Corrina MD INTERROGATION REMOTE </90 D PROCESSING ANALYST REVIEW completed AICD Interrogation, Remote (Prof) Nav [...] Nav Corrina MD INTERROGATION REMOTE </90 D PROCESSING ANALYST REVIEW completed AICD Interrogation, Remote (Prof) Nav [...] Nav Corrina MD INTERROGATION REMOTE </90 D PROCESSING ANALYST REVIEW completed AICD Interrogation, Remote (Prof) Nav [...] Nav Corrina MD INTERROGATION REMOTE </90 D PROCESSING ANALYST REVIEW completed AICD Interrogation, Remote (Prof) Nav [...] Nav Corrina MD INTERROGATION REMOTE </90 D PROCESSING ANALYST REVIEW completed AICD Interrogation, Remote (Prof) Nav [...]
--- OUTSIDE RECORDS SUMMARY | 2024-10-30 17:11 | XMS_ITS | Clinical Summary ---
Author Organization [facility] Address [address] [place] [address] Care Team Providers Care Field Map Technician Name Role Phone Gino Meyer MD Primary Care Provider [phone] Christel Lu MD Unavailable Toro Freire MD Unavailable Allergies No known active allergies Medications aspirin 81 MG tablet Take 1 tablet (81 mg total) by mouth daily. 6 Active nitroglycerin 0.[address] 1 tablet (0.4 mg total) under the tongue every 5 (five) minutes as needed for Chest Pain. 28 tablet 11 1 Active montelukast (SINGULAIR) 10 MG tablet Take 1 tablet (10 mg total) by mouth daily. In evening 2 Active multi vitamin/minerals (THERA-M ENHANCED) tablet Take 1 tablet by mouth daily. Active spironolactone (ALDACTONE) 25 MG tablet Take 0.5 tablets (12.5 mg total) by mouth daily. 30 tablet 5 2 Active Additional Information Patient taking differently: 25 mgOral Daily, Reported on 09/08/2024 anastrozole (ARIMIDEX) 1 MG tablet Take 1 tablet by mouth daily. 3 Active sacubitril-valsa rtan (ENTRESTO) 24-26 MG tablet Take 1 tablet by mouth 2 (two) times daily. Active Calcium-Magnesiu m-Vitamin D (CALCIUM 1200+D3 OR) Take 1 tablet by mouth daily. Active albuterol sulfate HFA 108 (90 Base) MCG/ACT inhaler Inhale 2 puffs into the lungs every 4 (four) hours as needed for Wheezing or Shortness of breath. 8 g 3 Active empagliflozin (JARDIANCE) 10 MG tablet Take 1 tablet (10 mg total) by mouth daily. 30 tablet 3 Active ipratropium-albu terol (COMBIVENT RESPIMAT) 20-100 MCG/ACT inhaler Inhale 1 puff into the lungs 4 (four) times daily. Please provide assembled. 4 g 3 Active Additional Information Patient taking differently:1 puff InhalationBID, Please provide assembled., Reported on 09/08/2024 atorvastatin (LIPITOR) 10 MG tablet TAKE ONE TABLET BY MOUTH NIGHTLY AT BEDTIME 30 tablet 11 3 Active digoxin (LANOXIN) 0.125 MG tablet Take 1 tablet (0.125 mg total) by mouth every other day. 3 Active apixaban (ELIQUIS) 5 MG tabletIndication s:Atrial fibrillation (CMS/HCC HHS/HCC) Take 1 tablet (5 mg total) by mouth 2 (two) times daily. 60 tablet 2 4 Active HYDROcodone-acet aminophen (NORCO) 5-325 MG tablet as needed. 4 Active gabapentin (NEURONTIN) 300 MG capsule Take 2 capsules (600 mg total) by mouth 3 (three) times daily. Active furosemide (LASIX) 80 MG tablet Take 1 tablet (80 mg total) by mouth 2 (two) times daily. 180 tablet 5 Active metOLazone (ZAROXOLYN) 2.5 MG tablet TAKE ONE PILL EVERY OTHER DAY. Pt should take metolazone 30 minutes before taking Furosamide in the morning. 30 tablet 5 Active carvedilol (COREG) 12.5 MG tabletIndication s:Atrial fibrillation ([facility]) TAKE ONE TABLET BY MOUTH TWICE A DAY 60 tablet 3 Active Active Problems Problem Noted Date Diagnosed Date Breast cancer ([facility]) 07/23/2023 S/P coronary artery stent placement 03/18/2021 Mixed hyperlipidemia 07/10/2017 Stage 2 chronic kidney disease 06/14/2014 Non-ischemic cardiomyopathy ([facility]) AICD (automatic cardioverter/defibrillator) pres ent Hypertension Coronary artery disease Systolic heart failure ([facility]) Resolved Problems Problem Noted Date Diagnosed Date Resolved Date Hypotension due to hypovolemia 04/25/2022 06/13/2023 Obesity (BMI 30-39.9) 07/10/20172021 Encounters Date Type Department Care Team Description 10/29/2024 3:30 PM CDT Hospital Encounter [facility] [address] [place] [address] Toro Freire MD Arrived 10/29/2024 Travel 10/16/2024 Telephone [facility] [address] [place] [address] Toro Freire MD Schedule Test 10/12/2024 3:45 PM RESOURCE ANALYST Office Visit [facility] [address] [place] [address] Toro Freire MD 10/12/2024 2:59 PM RESOURCE ANALYST - 10/12/2024 11:59 PM RESOURCE ANALYST Hospital Encounter [facility] [address] [place] [address] Toro Freire MD Discharge Disposition: Home or Self Care (Routine Discharge) 10/12/2024 Travel 10/08/2024 Orders Only [facility] [address] [place] [address] Toro Freire MD 10/07/2024 Telephone [facility] [address] [place] [address] Toro Freire MD Appointment Reminder 10/02/2024 Telephone [facility] [address] [place] [address] Jaida Yee APRN, FOAMITE MIXER-C Lab Results; Lab Order 09/30/2024 Telephone [facility] [address] [place] [address] Christel Lu MD Appointment Request 09/24/2024 Telephone [facility] [address] [place] [address] Jaida Yee APRN, FOAMITE MIXER-C Follow Up Call 09/24/2024 Orders Only [facility] [address] [place] [address] Heidy Landers LPN 09/22/2024 Abstract [facility] [address] [place] [address] Jaida Yee APRN, FOAMITE MIXER-C 09/22/2024 Telephone [facility] [address] [place] [address] Jaida Yee APRN, FOAMITE MIXER-C Other 09/16/2024 10:39 AM RESOURCE ANALYST - 09/16/2024 11:59 PM RESOURCE ANALYST Hospital Encounter [facility] [address] [place] [address] Barbi Day, CAT Discharge Disposition: Home or Self Care (Routine Discharge) 09/16/2024 Travel 09/16/2024 Telephone [facility] [address] [place] [address] Jaida Yee APRN, FOAMITE MIXER-C Question 09/10/2024 Telephone [facility] [address] [place] [address] Jaida Yee APRN, FOAMITE MIXER-C Follow Up Call 09/10/2024 Abstract [facility] [address] [place] [address] Abstract, Doc Pccl 09/08/2024 11:00 AM RESOURCE ANALYST Office Visit [facility] [address] [place] [address] Jaida Yee APRN, FOAMITE MIXER-C Follow Up; CHF 09/08/2024 Telephone [facility] [address] [place] [address] Toro Freire MD Appointment Request 09/08/2024 Telephone [facility] [address] [place] [address] Jaida Yee APRN, FOAMITE MIXER-C Referral 09/08/2024 Travel 09/01/2024 11:15 AM RESOURCE ANALYST Allied Health/Nurse Visit [facility] [address] [place] [address] Christel Lu MD 09/01/2024 11:15 AM RESOURCE ANALYST Office [facility] [address] [place] [address] Christel Lu MD Follow Up; Cardiac Device Management; Atrial Fibrillation 09/01/2024 Orders Only [facility] [address] [place] [address] Jaida Yee APRN, FOAMITE MIXER-C 09/01/2024 Telephone [facility] [address] [place] [address] Jaida Yee APRN, FOAMITE MIXER-C Appointment Request 09/01/2024 Travel 08/31/2024 Scan [facility] [address] [place] [address] Scanned, Doc Pccl 08/31/2024 Orders Only [facility] [address] [place] [address] Christel Lu MD 08/31/2024 Telephone [facility] [address] [place] [address] Christel Lu MD Record Request 08/30/2024 Scan [facility] [address] [place] [address] Scanned, Doc Pccl 08/28/2024 Scan [facility] [address] [place] [address] Scanned, Doc Pccl Image (SCAN) 08/28/2024 Scan [facility] [address] [place] [address] Scanned, Doc Pccl ECG (SCAN) 08/28/2024 Scan [facility] [address] [place] [address] Scanned, Doc Pccl 08/28/2024 Telephone [facility] [address] [place] [address] Christel Lu MD Record Request 08/25/2024 Telephone [facility] [address] [place] [address] Christel Lu MD Reschedule 08/20/2024 Orders Only [facility] [address] [place] [address] Christel Lu MD 08/10/2024 Telephone [facility] [address] [place] [address] Christel Lu MD Appointment Request from Last [...] Sex Assigned at Female 09/01/2024 10:13 AM RESOURCE ANALYST Legal Sex Female 10:21 PM CDT Gender Identity Not on file Sexual Orientation Not on file Occupation Industry Job Start Date Job End Date retired Not on file Not on file Not on file Last Filed Vital Signs Vital Sign Reading Time Taken Comments Blood Pressure 110/60 10/12/2024 2:53 PM RESOURCE ANALYST Pulse 105 10/12/2024 2:53 PM RESOURCE ANALYST Temperature 36.8 C (98.2 F) 08/30/2023 12:39 PM RESOURCE ANALYST Respiratory Rate 16 10/12/2024 2:53 PM RESOURCE ANALYST Oxygen Saturation 100% 10/12/2024 2:53 PM RESOURCE ANALYST Inhaled Oxygen Concentration - - Weight 80.7 kg (178 lb) 10/12/2024 2:53 PM RESOURCE ANALYST Height 152.4 cm (5') 10/12/2024 2:53 PM RESOURCE ANALYST Body Mass Index 34.76 10/12/2024 2:53 PM RESOURCE ANALYST Plan of Treatment Upcoming Encounters Date Type Department Care Team (Late st Contact Info) Description 12/07/2024 1:15 AM CDT [facility] [address] [place] [address] Christel Lu MD [address] [place] [address] 12/21/2024 2:30 PM CDT [facility] [address] [place] [address] Maciel Wang PA-C [address] [place] [address] 12/21/2024 2:30 PM CDT [facility] [address] [place] [address] Christel Lu MD [address] [place] [address] 03/29/2025 1:00 PM CDT Office Visit [facility] [place] [address] Toro Freire MD [address] [place], [place] [address] Health Maintenance Due Date Last Done Comments [...] Lambert RN Medical Devices Implanted Type Area Director Of Photography Device Identifier Shelf Expiration Date Model / Serial / Lot [employer] Lynettent El Dr-08/30/2023 Implanted:Qty: 1 on 08/30/2023 by Christel Lu MD ICD [employer] 12/28/2024 [id number] / [id number] / Description:DX: NICM MRI Conditional under following conditions: Static magnetic field of 1.5 T or 3 T, Max spatial gradient field of 5000 Gauss/cm or less, Max slew rate 200 T/m/s , WHOLE BODY TERESO OF 2 W/KG OR LESS, HEAD TERESO 3.2 W/KG OR LESS , Supine or Prone only [employer] Ra-08/30/2023 Implanted:Qty: 1 on 08/30/2023 by Christel Lu MD Lead Implant [employer] 01/04/2025 [id number] / [id number] / [employer] Rv-08/30/2023 Implanted:Qty: 1 on 08/30/2023 by Christel Lu MD Lead Implant [employer] 04/08/2024 [id number] / [id number] / Cv Synergy Xd Jose-Lad- 021 Implanted:02/18 by Russell Bentley MD (Quantity not on file) Stent Coronary LAD [employer] 10/05/2022 [id number] / / [id number] Cv Synergy Xd Jose-[place]-2020 Implanted:02/18 by Russell Bentley MD (Quantity not on file) Stent Coronary LAD [employer] 11/17/2022 [id number] / / [id number] Procedures Procedure Name Priority Date/Time Associated Diagnosis Comments ECG 12-LEAD Routine 10/12/2024 3:21 PM RESOURCE ANALYST Non-ischemic cardiomyopathy (CMS/HCC HHS/HCC) BASIC METABOLIC PANEL Routine 09/24/2024 care home use of drug BASIC METABOLIC PANEL Routine 09/18/2024 manager intermediate use of drug BASIC METABOLIC PANEL Routine 09/09/2024 ELECTROCARDIOGRAM (NON MIDMARK ACQUIRED) Routine 09/01/2024 10:27 AM RESOURCE ANALYST Atrial fibrillation, unspecified type (CMS/HCC HHS/HCC) AICD (automatic cardioverter/defibri llator) present COMPREHENSIVE METABOLIC PANEL Routine 08/31/2024 CBC, MANUAL DIFF Routine 08/31/2024 ECG GENERIC (SCAN ORDER) Routine 025 12:00 AM RESOURCE ANALYST IMAGE GENERIC Routine 08/28/2024 12:00 AM RESOURCE ANALYST LIPID PANEL Routine 03/27/2021 10:35 AM CDT care home use of drug Hyperlipidemia, unspecified hyperlipidemia type from Last 3 Months or Most Recently Relevant to Health Maintenance Results * ECG 12 lead (HOSPITAL PERFORMED ONLY) (10/12/2024 3:21 PM RESOURCE ANALYST) 10/12/2024 3:21 PM RESOURCE ANALYST Narrative [facility] - 10/12/2024 6:34 PM RESOURCE ANALYST [address] [place] [address] Test Date: 2024-10-12 Pat Name: JENNIFER COATES Department: 3 Room: Gender: Female Solderer Assembler: : 1940 Requested By: TORO FREIRE Order Number: [id number] Reading MD: Toro Freire Measurements Intervals [place] Rate: 107 P: 69 OK: 160 QRS: 148 QRSD: 120 T: -2 QT: 356 QTc: 477 Interpretive Statements SINUS TACHYCARDIA WITH OCCASIONAL VENTRICULAR PREMATURE COMPLEXES POSSIBLE RIGHT VENTRICULAR HYPERTROPHY [SOME/ALL OF: PROMINENT R IN V1, LATE TRANSITION, RAD, BONILLA, SSS] POSSIBLE ANTERIOR MYOCARDIAL INFARCTION [30 ms Q WAVE IN V3/V4, OR R < 0.2 mV IN V4], PROBABLY OLD URCE ANALYST Procedure Note Toro Freire MD - 10/12/2024 [facility] [address] [place] [address] Test Date: 2024-10-12 Pat Name: JENNIFER COATES Department: 3 Room: Gender: Female Solderer Assembler: : 1940 Requested By: TORO FREIRE Order Number: [id number] Reading MD: Toro Freire Measurements Intervals [place] Rate: 107 P: 69 OK: 160 QRS: 148 QRSD: 120 T: -2 QT: 356 QTc: 477 Interpretive Statements SINUS TACHYCARDIA WITH OCCASIONAL VENTRICULAR PREMATURE COMPLEXES POSSIBLE RIGHT VENTRICULAR HYPERTROPHY [SOME/ALL OF: PROMINENT R IN V1,LATE TRANSITION, RAD, BONILLA, SSS] POSSIBLE ANTERIOR MYOCARDIAL INFARCTION [30 ms Q WAVE IN V3/V4, OR R < 0.2mV IN V4], PROBABLY OLD URCE ANALYST us Toro Freire MD ECG ORDERABLES Final Result [facility] * (ABNORMAL) BASIC METABOLIC PANEL (09/24/2024) [...] - 1.0 GFR ESTIMATE 27 09/24/2024 us PRINCE Brand APRNC LABORATORY Final Result * ELECTROCARDIOGRAM (09/01/2024 10:27 AM RESOURCE ANALYST) 09/01/2024 10:2 7 AM RESOURCE ANALYST Narrative [facility] 09/07/2024 7:54 AM RESOURCE ANALYST [facility] [place] [address] Test Date: 2024-09-01 Pat Name: JENNIFER COATES Department: 105 Room: Gender: Female Solderer Assembler: GIO : 1940 Requested By: CHRISTEL LU Order Number: [id number] Reading MD: Christel Lu Measurements Intervals [place] Rate: 91 P: 44 OK: 185 QRS: -54 QRSD: 115 T: 123 QT: 368 QTc: 455 Interpretive Statements SINUS RHYTHM LEFT AXIS DEVIATION MODERATE INTRAVENTRICULAR CONDUCTION DELAY ST DEVIATION AND MODERATE T-WAVE ABNORMALITY, CONSIDER LATERAL ISCHEMIA URCE ANALYST Procedure Note Christel Lu MD - 09/07/2024 [facility] [place] [address] [place] [address] Test Date: 2024-09-01 Pat Name: JENNIFER COATES Department: 105 Room: Gender: Female Solderer Assembler: GIO : 1940 Requested By: CHRISTEL LU Order Number: [id number] Reading MD: Christel Lu Measurements Intervals [place] Rate: 91 P: 44 OK: 185 QRS: -54 QRSD: 115 T: 123 QT: 368 QTc: 455 Interpretive Statements SINUS RHYTHM LEFT AXIS DEVIATION MODERATE INTRAVENTRICULAR CONDUCTION DELAY ST DEVIATION AND MODERATE T-WAVE ABNORMALITY, CONSIDER LATERAL ISCHEMIA URCE ANALYST us Christel Lu MD PROCEDURES-ORDERABLE NO CHARGE F inal Result [facility] * (ABNORMAL) COMPREHENSIVE METABOLIC PANEL (08/31/2024) SODIUM S/P/B 138 GLUCOSE 103 mg/dL AST 31 BUN 27 CREATININE S/P/B 1.23(A) 0.5 - 1.0 CALCIUM S/P/B 8.0 POTASSIUM S/P/B 3.8 CHLORIDE S/P/B 102 ALT 21 GFR ESTIMATE 42 Narrative Resulting Agency Comment [facility] us Default History Genericprovider LABORATORY Final Result * CBC, MANUAL DIFF (08/31/2024) WBC 7.4 HGB 10.8 HCT 35.8 PLT 231 Narrative Resulting Agency Comment [facility] us Default History Genericprovider LABORATORY Final Result * ECG (08/28/2024 12:00 AM RESOURCE ANALYST) 08/28/2024 us Doc Pccl Scanned SCANNING Final Result [facility] * IMAGE STUDY (08/28/2024 12:00 AM RESOURCE ANALYST) Anatomical Region Laterality Modality Other 08/28/2024 us Doc Pccl Scanned SCANNING Final Result * LIPID PANEL (03/27/2021 10:35 AM CDT) CHOLESTEROL 201 MG/DL 03/27/2021 11:16 AM CDT [facility] Comment:BORDERLINE HIGH: 200 -239 TRIGLYCERIDES 175 MG/DL 03/27/2021 11:16 AM CDT [facility] Comment:150-199 BORDERLINE H IGH HDL 56 >49 MG/DL 03/27/2021 11:16 AM CDT [facility] LDL (CALCULATED) 110 MG/DL 03/27/20 11:16 AM CDT [facility] Comment:100-129 NEAR OR ABOV E OPTIMAL VLDL CALCULATION 35 MG/DL 03/27/20 11:16 AM CDT [facility] Comment:REFERENCE RANGE NOT ESTABLISHED CHOL/HDL RATIO 3.6 03/27/2021 11:16 AM CDT [facility] Comment:REFERENCE RANGE NOT ESTABLISHED LDL/HDL 2.0 03/27/2021 11:16 AM CDT [facility] Comment:REFERENCE RANGE NOT ESTABLISHED NON HDL CHOLESTEROL 145 MG/DL 03/27/2021 11:16 AM CDT [facility] Comment:REFERENCE RANGE NOT ESTABLISHED 03/27/2021 10:3 5 AM CDT POLLO Brand APRN LABORATORY Final Result [facility] [address] [place] [address], [id number] from Last 3 Months or Most Recently Relevant to Health Maintenance Insurance [facility] MEDICAID [facility] MEDICAID Advance Directives Documents on File Type Date Recorded Patient Critical Care Nurse Expl anation Power of Mainframe Architect 10/21/2024 2:16 PM 2012 - ALEXANDRA COATES, FORMERLY [facility]; REJI COATES, 1ST ALTERNATE HCA-OTHER; ANGEL COATES, [...] Relationship Healthcare Agent Relationship Communication Alexandra Coates ([facility]) Son Health Care Agent Reji Coates Other First Alternate Health Care Agent Angel Coates [facility] Agent Care Teams Field Map Technician Relationship Specialty Start Date End Date Gino Meyer MD [address] [place] [address] PCP - General INTERNAL MEDICINE 06/11/17 Christel Lu MD [address] [place] [phone] EP See Supervisor CLINICAL CARDIAC ELECTROPHYSIOLOGY 06/12/23 Toro Freire MD [address] [place] [address] [place] See Supervisor CARDIOVASCULAR DISEASE 10/16/24
--- OUTSIDE RECORDS SUMMARY | 2024-10-30 17:11 | XMS_ITS | Encounter Summary ---
Author Organization [facility] Address [address] [place] [address] Care Team Providers Care Sales Engineering Manager Name Role Phone Toy Warren MD Primary Care Provider [phone] Santos Fuentes MD Unavailable Unavailabl e Gino Meyer MD Primary Care Provider [phone] Shana Adams NP Unavailable Unavailable Christel Lu MD Unavailable Stella Llanos MD Unavailable Encounter Details Date Type Department Care Team (Late st Contact Info) Description 01/31/2017 Abstract [facility] [address] [place] [address] Santos Fuentes MD Social History Tobacco Use Types Packs/Day Years Used Date Smoking Tobacco: Never Alcohol Use Standard Drinks/Week Comments No 0 (1 standard drink = 0.6 oz pur e alcohol) Comments Unknown Sex and Gender Information Value Date Recorded Sex Assigned at Female 09/01/2024 10:13 AM SOLAR PHOTOVOLTAIC INSTALLER Legal Sex Female 10:21 PM CDT Gender [...] Visit [facility] [address] [place] [address] Christel Lu MD [address] [place] [address] 12/21/2024 2:30 PM CDT Office Visit [facility] [address] [place] [address] Maciel Wang PATanishaC [address] [place] [address] 12/21/2024 2:30 PM CDT Allied Health/Nurse Visit [facility] [address] [place] [address] Christel Lu MD [address] [place] [address] 03/29/2025 1:00 PM CDT Office Visit [facility] [place] [address] Stella Llanos MD [address] [place] [address] documented as of this encounter Visit Diagnoses Not on filedocumented in this encounter Additional Health Concerns Infection Onset Date Last Indicated Resolved Time COVID-19 Rule Out 04/24/2022 04/24/2022 04/24/2022 4:06 AM CDT documented as of this encounter Care Teams Sales Engineering Manager Relationship Specialty Start Date End Date Toy Warren MD [address] [place] [address] PCP - General INTERNAL MEDICINE 02/06/17 06/10/17 Gino Meyer MD [address] [place] [phone] PCP - General INTERNAL MEDICINE 06/11/17 Santos Fuentes MD [address] [place] [address] [place] Motor And Chassis Inspector CARDIOVASCULAR DISEASE 02/06/17 08/31/24 Shana Adams NP [address] [place] [address] Referring Physician Nurse Practitioner [facility] 02/27/23 Christel Lu MD [address] [place] [address] EP Motor And Chassis Inspector CLINICAL CARDIAC ELECTROPHYSIOLOGY 06/12/23 Stella Llanos MD [address] [place] [address] [place] Motor And Chassis Inspector CARDIOVASCULAR DISEASE 10/16/24 documented as of this encounter
--- OUTSIDE RECORDS SUMMARY | 2024-10-30 17:11 | XMS_ITS | Encounter Summary ---
Author Organization [facility] Address [address] [place] [address] Care Team Providers Care Bag Machine Operator Helper Name Role Phone Santos Fuentes MD Unavailable Unavailabl e Gino Meyer MD Primary Care Provider [phone] Shana Adams NP Unavailable Unavailable Christel Lu MD Unavailable Stella Llanos MD Unavailable Encounter Details Date Type Department Care Team (Late st Contact Info) Description 12/06/2022 Hospital Follow-up Call [facility] [address] [place] [address] Stephie Arreloa, RN Social History Tobacco Use Types Packs/Day [...] place to sleep or slept in a prison (including now)? Yes 11/29/2022 Comments No Sex and Gender Information Value Date Recorded Sex Assigned at Female 09/01/2024 10:13 AM CONTRACT SERVICEMAN Legal Sex Female 10:21 PM CDT Gender [...] PM CDT Helga Hallman, R N Active documented as of this [...] 1:15 AM CDT [facility] [address] [place] [address] Christel Lu MD [address] [place] [address] 12/21/2024 2:30 PM CDT [facility] [address] [place] [address] Maciel Wang, PATanishaC [address] [place] [address] 12/21/2024 2:30 PM CDT [facility] [address] [place] [address] Christel Lu MD [address] [place] [address] 03/29/2025 1:00 PM CDT Office Visit [facility] [place] [address] Stella Llanos MD [address] [place] [address] documented as of this encounter Goals Goal Patient Goal Type Associated Problems Recent Progress Patient-Stated? Author Safety Patient/family will have appropriate support at home upon discharge Lifestyle No Merissa Santiago, MARY LOU Safety Patient/family will have appropriate support at home upon discharge Lifestyle No Elina Lambert, RN documented as of this encounter Visit Diagnoses Not on filedocumented in this encounter Care Teams Bag Machine Operator Helper Relationship Specialty Start Date End Date Gino Meyer MD [address] [place] [address] PCP - General INTERNAL MEDICINE 06/11/17 Santos Fuentes MD [employer] I Instructor CARDIOVASCULAR DISEASE 02/06/17 08/31/24 Shana Adams NP [address] [place] [address] Referring Physician Nurse Practitioner Family 02/27/23 Christel Lu MD [address] [place] [address] EP Flying I Instructor CLINICAL CARDIAC ELECTROPHYSIOLOGY 06/12/23 Stella Llanos MD [address] [place] [address] [employer] I Instructor CARDIOVASCULAR DISEASE 10/16/24 documented as of this encounter
--- OUTSIDE RECORDS SUMMARY | 2024-10-30 17:11 | XMS_ITS | Encounter Summary ---
Author Organization [facility] Address [address] [place] [address] Care Team Providers Care Garment Mender Name Role Phone Toy Warren MD Primary Care Provider [phone] Santos Fuentes MD Unavailable Unavailabl e Gino Meyer MD Primary Care Provider [phone] Shana Adams NP Unavailable Unavailable Christel Lu MD Unavailable Stella Llanos MD Unavailable Encounter Details Date Type Department Care Team (Late st Contact Info) Description 03/06/2017 Abstract [facility] [address] [place] [address] Santos Fuentes MD Social History Tobacco Use Types Packs/Day Years Used Date Smoking Tobacco: Never Alcohol Use Standard Drinks/Week Comments No 0 (1 standard drink = 0.6 oz pur e alcohol) Comments Unknown Sex and Gender Information Value Date Recorded Sex Assigned at Female 09/01/2024 10:13 AM STAFF MIDWIFE/APPRENTICESHIP DIRECTOR Legal Sex Female 10:21 PM CDT Gender Identity Not on file Sexual Orientation Not on file Occupation Industry Job Start Date Job End Date retired Not on file Not on file Not on file documented as of this encounter Plan of Treatment Upcoming Encounters Date Type Department Care Team (Late st Contact Info) Description 12/07/2024 1:15 AM CDT Allied Health/Nurse Visit [facility] ld [address] [place] [address] Christel Lu MD [address] [place] [address] 12/21/2024 2:30 PM CDT Office Visit [facility] [address] [place] [address] Maciel Wang PATanishaC [address] [place] [address] 12/21/2024 2:30 PM CDT Allied Health/Nurse Visit [facility] [address] [place] [address] Christel Lu MD [address] [place] [address] 03/29/2025 1:00 PM CDT Office Visit [facility] [place] [address] Stella Llanos MD [address] [place] [address] documented as of this encounter Visit Diagnoses Not on filedocumented in this encounter Additional Health Concerns Infection Onset Date Last Indicated Resolved Time COVID-19 Rule Out 04/24/2022 04/24/2022 04/24/2022 4:06 AM CDT documented as of this encounter Care Teams Garment Mender Relationship Specialty Start Date End Date Toy Warren MD [address] [place] [address] PCP - General INTERNAL MEDICINE 02/06/17 06/10/17 Gino Meyer MD [address] [place] [address] PCP - General INTERNAL MEDICINE 06/11/17 Santos Fuentes MD [address] [place] [address] [place] Pipe Caulker CARDIOVASCULAR DISEASE 02/06/17 08/31/24 Shana Adams NP [address] [place] [address] Referring Physician Nurse Practitioner [facility] 02/27/23 Christel Lu MD [address] [place] [address] [place] Pipe Caulker CLINICAL CARDIAC ELECTROPHYSIOLOGY 06/12/23 Stella Llanos MD [address] [place] [address] [place] Pipe Caulker CARDIOVASCULAR DISEASE 10/16/24 documented as of this encounter
--- OUTSIDE RECORDS SUMMARY | 2024-10-30 17:12 | XMS_ITS | Encounter Summary ---
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 Legal Sex Female 10:21 PM CDT [...] AM CDT Allied Health/Nurse Visit [facility] ld [address] [place] [address] Christel Lu MD [address] [place] [address] 12/21/2024 2:30 PM CDT Office Visit [facility] ld [address] [place] [address] Maciel Wang PA-C [address] [place] [address] 12/21/2024 2:30 PM CDT Allied Health/Nurse Visit [facility] ld [address] [place] [address] Christel Lu MD [address] [place] [address] 03/29/2025 1:00 PM CDT Office Visit [facility] [place] [address] Stella Llanos MD [address] [place] [address] documented as of this encounter Goals Goal Patient Goal Type Associated Problems Recent Progress Patient-Stated? Author Safety Patient/family will have appropriate support at home upon discharge Lifestyle No Merissa Santiago, RN Safety Patient/family will have appropriate support at home upon discharge Lifestyle No Elina Lambert RN documented as of this encounter Visit Diagnoses Not on filedocumented in this encounter Care Teams Fire Control Technician B Relationship Specialty Start Date End Date Gino Meyer MD [address] [place] [address] PCP - General INTERNAL MEDICINE 06/11/17 Christel Lu MD [address] [place] [address] EP Membership Secretary CLINICAL CARDIAC ELECTROPHYSIOLOGY 06/12/23 Stella Llanos MD [address] [place] [address] [place] Membership Secretary CARDIOVASCULAR DISEASE 10/16/24 documented as of this encounter
--- OUTSIDE RECORDS SUMMARY | 2024-10-30 17:12 | XMS_ITS | Encounter Summary ---
Author Organization [facility] Address [address] [place] [address] Care Team Providers Care Group Care Worker Name Role Phone Gino Meyer MD Primary Care Provider [phone] Christel Lu MD Unavailable Stella Llanos MD Unavailable Reason for Referral * Imaging (Routine) - Closed Specialty Diagnoses / Procedures Referred By Contac t Referred To Contact RADIOLOGY Diagnoses CHF (congestive heart failure) (CMS/HCC [facility]) Procedures USE ECHOCARDIOGRAM Stella Llanos MD [address] [place] [address] Phone: tel: fax: Referral ID Status Reason Start Date Expiration Date Visits Re quested Visits Authorized [id number] Closed 10/13/2024 11/13/2025 1 1 Reason for Visit * Imaging (Routine) - Closed Specialty Diagnoses / Procedures Referred By Contac t Referred To Contact RADIOLOGY Diagnoses CHF (congestive heart failure) ([facility]) Procedures USE ECHOCARDIOGRAM Stella Llanos MD [address] [place] [address] Phone: tel: fax: Referral ID Status Reason Start Date Expiration Date Visits Re quested Visits Authorized [id number] Closed 10/13/2024 11/13/2025 1 1 Encounter Details Date Type Department Care Team (Late st Contact Info) Description 10/29/2024 3:30 PM CDT Hospital Encounter [facility] [address] [place] [address] Stella Llanos MD [address] [place] [address] Arrived Social History Tobacco Use Types Packs/Day Years [...] Sex Assigned at Female 09/01/2024 10:13 AM 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 Answer Date of Assessment Author Status No 07/23/2023 6:28 AM COMMERCIAL REAL ESTATE AGENT Saroj Matthews RN Active * Do you [...] 12/07/2024 1:15 AM CDT Allied Health/Nurse Visit [facility] [address] [place] [address] Christel Lu MD [address] [place] [address] 12/21/2024 2:30 PM CDT Office Visit [facility] [address] [place] [address] Maciel Wang PATanishaC [address] [place] [address] 12/21/2024 2:30 PM CDT Allied Health/Nurse Visit [facility] [address] [place] [address] Christel Lu MD [address] [place] [address] 03/29/2025 1:00 PM CDT Office Visit [facility] [place] [address] Stella Llanos MD [address] [place] [address] Pending Results Name Type Priority Associated Diagnoses Date /Time USE ECHOCARDIOGRAM ECHO Routine CHF (congestive heart failure) ([facility]) 10/29/2024 4:28 PM CDT Scheduled Orders Name Type Priority Associated Diagnoses Orde r Schedule USE ECHOCARDIOGRAM ECHO Routine CHF (congestive heart failure) ([facility]) Once for 1 Occurrences starting 10/29/2024 until 10/29/2024 documented as of this encounter Goals Goal Patient Goal Type Associated Problems Recent Progress Patient-Stated? Author Safety Patient/family will have appropriate support at home upon discharge Lifestyle No Merissa Santiago, RN Safety Patient/family will have appropriate support at home upon discharge Lifestyle No Elina Lambert RN documented as of this encounter Visit Diagnoses Diagnosis CHF (congestive heart failure) ([facility]) Congestive heart failure, unspecified documented in this encounter Care Teams Group Care Worker Relationship Specialty Start Date End Date Gino Meyer MD [address] [place] [address] PCP - General INTERNAL MEDICINE 06/11/17 Christel Lu MD [address] [place] [address] EP Container Finishing Inspector CLINICAL CARDIAC ELECTROPHYSIOLOGY 06/12/23 Stella Llanos MD [address] [place] [address] [place] Container Finishing Inspector CARDIOVASCULAR DISEASE 10/16/24 documented as of this encounter
--- OUTSIDE RECORDS SUMMARY | 2024-10-30 17:12 | XMS_ITS | Encounter Summary ---
Author Organization [facility] Address [address] [place] [address] Care Team Providers Care Welding Process Specialist Name Role Phone Santos Fuentes MD Unavailable Unavailabl e Gino Meyer MD Primary Care Provider [phone] Christel Lu MD Unavailable Stella Llanos MD Unavailable Reason for Visit * Reason Comments Image (SCAN) Encounter Details Date Type Department Care Team (Late st Contact Info) Description 08/28/2024 [facility] [address] [place] [address] Scanned, Doc Pccl Image (SCAN) Social History Tobacco Use Types Packs/Day [...] place to sleep or slept in a intermediate (including now)? Yes 11/29/2022 Comments No Sex and Gender Information Value Date Recorded Sex Assigned at Female 09/01/2024 10:13 AM TRANSMISSION MECHANIC Legal Sex Female 10:21 PM CDT [...] 12/07/2024 1:15 AM CDT Allied Health/Nurse Visit [facility] [address] [place] [address] Christel Lu MD [address] [place] [address] 12/21/2024 2:30 PM CDT Office Visit [facility] [address] [place] [address] Maciel Wang PATanishaC [address] [place] [address] 12/21/2024 2:30 PM CDT Allied Health/Nurse Visit [facility] [address] [place] [address] Christel Lu MD [address] [place] [address] 03/29/2025 1:00 PM CDT Office Visit [facility] [place] [address] Stella Llanos MD [address] [place] [address] documented as of this encounter Goals Goal Patient Goal Type Associated Problems Recent Progress Patient-Stated? Author Safety Patient/family will have appropriate support at home upon discharge Lifestyle No Merissa Santiago RN Safety Patient/family will have appropriate support at home upon discharge Lifestyle No Elina Lambert, RN documented as of this encounter Procedures Procedure Name Priority Date/Time Associated Diagnosis Comments IMAGE GENERIC Routine 08/28/2024 12:00 AM TRANSMISSION MECHANIC documented in this encounter Results * IMAGE STUDY (08/28/2024 12:00 AM TRANSMISSION MECHANIC) Anatomical Region Laterality Modality Other 08/28/2024 us Doc Pccl Scanned SCANNING Final Result documented in this encounter Visit Diagnoses Not on filedocumented in this encounter Care Teams Welding Process Specialist Relationship Specialty Start Date End Date Gino Meyer MD [address] [place] [address] PCP - General INTERNAL MEDICINE 06/11/17 Santos Fuentes MD [place] Compress Machine Operator CARDIOVASCULAR DISEASE 02/06/17 08/31/24 Christel Lu MD [address] [place] [address] EP Compress Machine Operator CLINICAL CARDIAC ELECTROPHYSIOLOGY 06/12/23 Stella Llanos MD [address] [place] [address] [place] Compress Machine Operator CARDIOVASCULAR DISEASE 10/16/24 documented as of this encounter
[2024-10-30 17:22] VITALS: BP 93/76; PULSE 48; RESP 18; TEMP 36.8; O2SAT 97
--- NOTE | 2024-10-30 17:23 | ECG_ITS ---
Test Date: 2024-10-30 17:28:52 Measurements Intervals [place] Rate: 106 P: 67 [place]: 158 QRS: 230 QRSD: 156 T: 44 QT: 401 QTc: 533 Interpretive Statements SINUS TACHYCARDIA LEFT ATRIAL ENLARGEMENT [-0.15mV P-WAVE IN V1/V2] RIGHT AXIS DEVIATION [QRS AXIS > 100] INTRAVENTRICULAR CONDUCTION DELAY [130+ ms QRS DURATION] Compared to ECG 08/28/2024 10:12:25 Atrial abnormality now present Right-axis deviation now present Intraventricular conduction delay now present Ventricular premature complex(es) no longer present Left-axis deviation no longer present Left bundle-branch block no longer present Electronically Signed On 11-02-2024 15:04:12 CDT by Alvino Alfaro M.D.
[2024-10-30 17:30] VITALS: BP 111/77; PULSE 105; RESP 20; O2SAT 98
[2024-10-30 17:40] VITALS: O2SAT 97
--- OUTSIDE RECORDS SUMMARY | 2024-10-30 17:42 | XMS_ITS | Encounter Summary ---
Author Organization [facility] Address [address] [place] [address] Care Team Providers Care Carbide Grinder Name Role Phone Gino Meyer MD Primary Care Provider [phone] Christel Lu MD Unavailable Stella Llanos MD [...] place to sleep or slept in a retirement (including now)? Yes 11/29/2022 Comments No Sex and Gender Information Value Date Recorded Sex Assigned at Female 09/01/2024 10:13 AM CONTACT LENS ASSISTANT Legal Sex Female 10:21 PM CDT [...] 12/07/2024 1:15 AM CDT Allied Health/Nurse Visit [facility] ld [address] [place] [address] Christel Lu MD [address] [place] [address] 12/21/2024 2:30 PM CDT Office Visit [facility] ld [address] [place] [address] Maciel Wang PA-C [address] [place] [address] 12/21/2024 2:30 PM CDT Allied Health/Nurse Visit [facility] ld [address] [place] [address] Christel Lu MD [address] [place] [address] 03/29/2025 1:00 PM CDT Office Visit [facility] [place] [address] Stella Llanos MD [address] [place] [address] documented as of this encounter Goals Goal Patient Goal Type Associated Problems Recent Progress Patient-Stated? Author Safety Patient/family will have appropriate support at home upon discharge Lifestyle No Merissa Santiago, RN Safety Patient/family will have appropriate support at home upon discharge Lifestyle No Elina Lambert RN documented as of this encounter Visit Diagnoses Not on filedocumented in this encounter Care Teams Carbide Grinder Relationship Specialty Start Date End Date Gino Meyer MD [address] [place] [address] PCP - General INTERNAL MEDICINE 06/11/17 Christel Lu MD [address] [place] [address] EP Carpenter Assistant CLINICAL CARDIAC ELECTROPHYSIOLOGY 06/12/23 Stella Llanos MD [address] [place] [address] [place] Carpenter Assistant CARDIOVASCULAR DISEASE 10/16/24 documented as of this encounter
--- OUTSIDE RECORDS SUMMARY | 2024-10-30 17:42 | XMS_ITS | Encounter Summary ---
Author Organization [facility] Address [address] [place] [address] Care Team Providers Care Bonded Structures Repairer Name Role Phone aSntos Fuentes MD Unavailable Unavailabl e Gino Meyer MD Primary Care Provider [phone] Shana Adams NP Unavailable Unavailable Christel Lu MD Unavailable Stella Llanos MD Unavailable Encounter Details Date Type Department Care Team (Late st Contact Info) Description 02/15/2021 Abstract [facility] [address] [place] [address] Santos Fuentes MD Social History Tobacco Use Types Packs/Day Years Used Date Smoking Tobacco: Never Smokeless Tobacco: Never Alcohol Use Standard Drinks/Week Comments No 0 (1 standard drink = 0.6 oz pur e alcohol) Comments Unknown Sex and Gender Information Value Date Recorded Sex Assigned at Female 09/01/2024 10:13 AM 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 Legal Sex Female 10:21 PM CDT [...] 12/07/2024 1:15 AM CDT Allied Health/Nurse Visit [facility] ld [address] [place] [address] Christel Lu MD [address] [place] [address] 12/21/2024 2:30 PM CDT Office Visit [facility] ld [address] [place] [address] Maciel Wang, PA-C [address] [place] [address] 12/21/2024 2:30 PM CDT Allied Health/Nurse Visit [facility] ld [address] [place] [address] Christel Lu MD [address] [place] [address] 03/29/2025 1:00 PM CDT Office Visit [facility] [place] [address] Stella Llanos MD [address] [place] [address] documented as of this encounter [...] documented as of this encounter Care Teams Bonded Structures Repairer Relationship Specialty Start Date End Date Gino Meyer MD [address] [place] [address] PCP - General INTERNAL MEDICINE 06/11/17 Santos Fuentes MD [place] Pressing Department Supervisor CARDIOVASCULAR DISEASE 02/06/17 08/31/24 Shana Adams NP [address] [place] [address] Referring Physician Nurse Practitioner Family 02/27/23 Christel Lu MD [address] [place] [address] EP Pressing Department Supervisor CLINICAL CARDIAC ELECTROPHYSIOLOGY 06/12/23 Stella Llanos MD [address] [place] [address] [place] Pressing Department Supervisor CARDIOVASCULAR DISEASE 10/16/24 documented as of this encounter
--- OUTSIDE RECORDS SUMMARY | 2024-10-30 17:42 | XMS_ITS | Encounter Summary ---
Author Organization [facility] Address [address] [place] [address] Care Team Providers Care Unit Educator Name Role Phone Toy Warren MD Primary Care Provider [phone] Santos Fuentes MD Unavailable Unavailabl e Gino Meyer MD Primary Care Provider [phone] Shana Adams NP Unavailable Unavailable Christel Lu MD Unavailable Stella Llanos MD Unavailable Encounter Details Date Type Department Care Team (Late st Contact Info) Description 03/06/2017 Abstract [facility] [address] [place] [address] Santos Fuentes MD Social History Tobacco Use Types Packs/Day Years Used Date Smoking Tobacco: Never Alcohol Use Standard Drinks/Week Comments No 0 (1 standard drink = 0.6 oz pur e alcohol) Comments Unknown Sex and Gender Information Value Date Recorded Sex Assigned at Female 09/01/2024 10:13 AM MANAGER METROLOGY Legal Sex Female 10:21 PM CDT Gender Identity Not on file Sexual Orientation Not on file Occupation Industry Job Start Date Job End Date retired Not on file Not on file Not on file documented as of this encounter Plan of Treatment Upcoming Encounters Date Type Department Care Team (Late st Contact Info) Description 12/07/2024 1:15 AM CDT Allied Health/Nurse Visit [facility] [address] [place] [address] Christel Lu MD [address] [place] [address] 12/21/2024 2:30 PM CDT Office Visit [facility] [address] [place] [address] Maciel Wang PATanishaC [address] [place] [address] 12/21/2024 2:30 PM CDT Allied Health/Nurse Visit [facility] [address] [place] [address] Christel Lu MD [address] [place] [address] 03/29/2025 1:00 PM CDT Office Visit [facility] [place] [address] Stella Llanos MD [address] [place] [address] documented as of this encounter Visit Diagnoses Not on filedocumented in this encounter Additional Health Concerns Infection Onset Date Last Indicated Resolved Time COVID-19 Rule Out 04/24/2022 04/24/2022 04/24/2022 4:06 AM CDT documented as of this encounter Care Teams Unit Educator Relationship Specialty Start Date End Date Toy Warren MD [address] [place] [address] PCP - General INTERNAL MEDICINE 02/06/17 06/10/17 Gino Meyer MD [address] [place] [address] PCP - General INTERNAL MEDICINE 06/11/17 Santos Fuentes MD [address] [place] [address] [place] Instrument Lens Grinder Apprentice CARDIOVASCULAR DISEASE 02/06/17 08/31/24 Shana Adams NP [address] [place] [address] Referring Physician Nurse Practitioner [facility] 02/27/23 Christel Lu MD [address] [place] [address] EP Instrument Lens Grinder Apprentice CLINICAL CARDIAC ELECTROPHYSIOLOGY 06/12/23 Stella Llanos MD [address] [place] [address] [place] Instrument Lens Grinder Apprentice CARDIOVASCULAR DISEASE 10/16/24 documented as of this encounter
--- OUTSIDE RECORDS SUMMARY | 2024-10-30 17:42 | XMS_ITS | CONTINUITY OF CARE DOCUMENT ---
Author Name angel, angel Address Unknown Organization [facility] Address [address] [place] [address] Phone [phone] Care Team Providers Care Cable Tender Name Role Phone Nav Houser MD Unavailable KENNEDY SARMIENTO MD Unavailable [phone] KENNEDY SARMIENTO MD Unavailable [phone] PROBLEMS Condition Status Date Provider Notes [...] Coverage type Pam aceves ID MARLENA JUAREZ [employer] insurance [employer] pany [id number] [place] Medicare [id number] TREATMENT PLAN Date Name Performer Cardiology printed [...] Nav Houser MD INTERROGATION REMOTE </90 D STARTING GATE DRIVER REVIEW completed AICD Interrogation, Remote (Prof) Nav [...] Nav Corrina MD INTERROGATION REMOTE </90 D STARTING GATE DRIVER REVIEW completed AICD Interrogation, Remote (Prof) Nav [...] Nav Corrina MD INTERROGATION REMOTE </90 D STARTING GATE DRIVER REVIEW completed AICD Interrogation, Remote (Prof) Nav [...] Nav Corrina MD INTERROGATION REMOTE </90 D STARTING GATE DRIVER REVIEW completed AICD Interrogation, Remote (Prof) Nav [...] Nav Corrina MD INTERROGATION REMOTE </90 D STARTING GATE DRIVER REVIEW completed AICD Interrogation, Remote (Prof) Nav [...] Nav Corrina MD INTERROGATION REMOTE </90 D STARTING GATE DRIVER REVIEW completed AICD Interrogation, Remote (Prof) Nav Corrina MD INTERROGATION EVAL REMOTE </90 D 1/2/> LD CVDFB completed ICM Interrogation, Remote (Prof) Nav Corrina MD INTERROGATION EVAL REMOTE </30 D CV MNTR SYS completed ICM Interrogation, Remote (Tech) Nav Corrnia MD INTERROGATION EVAL REMOTE </30 D TECH [...] Nav Corrina MD INTERROGATION REMOTE </90 D STARTING GATE DRIVER REVIEW completed AICD Interrogation, Remote (Prof) Nav [...] Nav Corrina MD INTERROGATION REMOTE </90 D STARTING GATE DRIVER REVIEW completed AICD Interrogation, Remote (Prof) Nav [...] Nav Corrina MD INTERROGATION REMOTE </90 D STARTING GATE DRIVER REVIEW completed AICD Interrogation, Remote (Prof) Nav [...]
--- OUTSIDE RECORDS SUMMARY | 2024-10-30 17:42 | XMS_ITS | Clinical Summary ---
Author Organization [facility] Address [address] [place] [address] Care Team Providers Care Spiritual Care Coordinator Name Role Phone Gino Meyer MD Primary Care Provider [phone] Christel Lu MD Unavailable Toro Freire MD [...] carvedilol (COREG) 12.5 MG tabletIndication s:Atrial fibrillation ([facility]) TAKE ONE TABLET BY MOUTH TWICE A DAY 60 tablet 3 Active Active Problems Problem Noted Date Diagnosed Date Breast cancer ([facility]) 07/23/2023 S/P coronary artery stent placement 03/18/2021 Mixed hyperlipidemia 07/10/2017 Stage 2 chronic kidney disease 06/14/2014 Non-ischemic cardiomyopathy ([facility]) AICD (automatic cardioverter/defibrillator) pres ent Hypertension Coronary artery disease Systolic heart failure ([facility]) Resolved Problems Problem Noted Date Diagnosed Date Resolved Date Hypotension due to hypovolemia 04/25/2022 06/13/2023 Obesity (BMI 30-39.9) 07/10/20172021 Encounters Date Type Department Care Team Description 10/29/2024 3:30 PM CDT Hospital Encounter [facility] [address] [place] [address] Toro Freire MD Arrived 10/29/2024 Travel 10/16/2024 [facility]phone [facility] [address] [place] [address] Toro Freire MD Schedule Test 10/12/2024 3:45 PM BAG PRESS OPERATOR Office Visit [facility] [address] [place] [address] Toro Freire MD 10/12/2024 2:59 PM BAG PRESS OPERATOR - 10/12/2024 11:59 PM BAG PRESS OPERATOR Hospital Encounter [facility] [address] [place] [address] Toro Freire MD Discharge Disposition: Home or Self Care (Routine Discharge) 10/12/2024 Travel 10/08/2024 Orders Only [facility] [address] [place] [address] Toro Freire MD 10/07/2024 Telephone [facility] [address] [place] [address] Toro Freire MD Appointment Reminder 10/02/2024 Telephone [facility] [address] [place] [address] Jaida Yee APRN, CAFE SITE ATTENDANT-C Lab Results; Lab Order 09/30/2024 Telephone [facility] [address] [place] [address] Christel Lu MD Appointment Request 09/24/2024 Telephone [facility] [address] [place] [address] Jaida Yee APRN, CAFE SITE ATTENDANT-C Follow Up Call 09/24/2024 Orders Only [facility] [address] [place] [address] Heidy Landers LPN 09/22/2024 Abstract [facility] [address] [place] [address] Jaida Yee APRN, CAFE SITE ATTENDANT-C 09/22/2024 Telephone [facility] [address] [place] [address] Jaida Yee APRN, CAFE SITE ATTENDANT-C Other 09/16/2024 10:39 AM BAG PRESS OPERATOR - 09/16/2024 11:59 PM BAG PRESS OPERATOR Hospital Encounter [facility] [address] [place] [address] Barbi Day, CAT Discharge Disposition: Home or Self Care (Routine Discharge) 09/16/2024 Travel 09/16/2024 Telephone [facility] [address] [place] [address] Jaida Yee APRN, CAFE SITE ATTENDANT-C Question 09/10/2024 Telephone [facility] [address] [place] [address] Jaida Yee APRN, CAFE SITE ATTENDANT-C Follow Up Call 09/10/2024 Abstract [facility] [address] [place] [address] Abstract, Doc Pccl 09/08/2024 11:00 AM BAG PRESS OPERATOR Office Visit [facility] [address] [place] [address] Jaida Yee APRN, CAFE SITE ATTENDANT-C Follow Up; CHF 09/08/2024 Telephone [facility] [address] [place] [address] Toro Freire MD Appointment Request 09/08/2024 Telephone [facility] [address] [place] [address] Jaida Yee APRN, CAFE SITE ATTENDANT-C Referral 09/08/2024 Travel 09/01/2024 11:15 AM BAG PRESS OPERATOR Allied Health/Nurse [facility] [address] [place] [address] Christel Lu MD 09/01/2024 11:15 AM BAG PRESS OPERATOR Office [facility] [address] [place] [address] Christel Lu MD Follow Up; Cardiac Device Management; Atrial Fibrillation 09/01/2024 Orders Only [facility] [address] [place] [address] Jaida Yee APRN, CAFE SITE ATTENDANT-C 09/01/2024 Telephone [facility] [address] [place] [address] Jaida Yee APRN, CAFE SITE ATTENDANT-C Appointment Request 09/01/2024 Travel 08/31/2024 Scan [facility] [address] [place] [address] Scanned, Doc Pccl 08/31/2024 Orders Only [facility] [address] [place] [address] Christel Lu MD 08/31/2024 Telephone [facility] [address] [place] [address] Christel Lu MD Record Request 08/30/2024 Scan [facility] [address] [place] [address] Scanned, Doc Pccl 08/28/2024 Scan [facility] [address] [place] [address] Scanned, Doc Pccl Image (SCAN) 08/28/2024 Scan [facility] [address] [place] [address] Scanned, Doc Pccl ECG (SCAN) 08/28/2024 Scan [facility] [address] [place] [address] Scanned, Doc Pccl 08/28/2024 Telephone [facility] [address] [place] [address] Christel Lu MD Record Request 08/25/2024 Telephone [facility] [address] [place] [address] Christel Lu MD Reschedule 08/20/2024 Orders Only [facility] [address] [place] [address] Christel Lu MD 08/10/2024 Telephone [facility] [address] [place] [address] Christel Lu MD Appointment Request from Last [...] place to sleep or slept in a half-way (including now)? Yes 11/29/2022 Comments No Sex and Gender Information Value Date Recorded Sex Assigned at Female 09/01/2024 10:13 AM BAG PRESS OPERATOR Legal Sex Female 10:21 PM CDT Gender Identity Not on file Sexual Orientation Not on file Occupation Industry Job Start Date Job End Date retired Not on file Not on file Not on file Last Filed Vital Signs Vital Sign Reading Time Taken Comments Blood Pressure 110/60 10/12/2024 2:53 PM BAG PRESS OPERATOR Pulse 105 10/12/2024 2:53 PM BAG PRESS OPERATOR Temperature 36.8 C (98.2 F) 08/30/2023 12:39 PM BAG PRESS OPERATOR Respiratory Rate 16 10/12/2024 2:53 PM BAG PRESS OPERATOR Oxygen Saturation 100% 10/12/2024 2:53 PM BAG PRESS OPERATOR Inhaled Oxygen Concentration - - Weight 80.7 kg (178 lb) 10/12/2024 2:53 PM BAG PRESS OPERATOR Height 152.4 cm (5') 10/12/2024 2:53 PM BAG PRESS OPERATOR Body Mass Index 34.76 10/12/2024 2:53 PM BAG PRESS OPERATOR Plan of Treatment Upcoming Encounters Date Type Department Care Team (Late st Contact Info) Description 12/07/2024 1:15 AM CDT [facility] [address] [place] [address] Christel Lu MD [address] [place] [address] 12/21/2024 2:30 PM CDT [facility] [address] [place] [address] Maciel Wang PA-C [address] [place] [address] 12/21/2024 2:30 PM CDT [facility] [address] [place] [address] Christel Lu MD [address] [place] [address] 03/29/2025 1:00 PM CDT Office [facility] [place] [address] Toro Freire MD [address] [place], [place] [address] Health Maintenance Due Date Last Done Comments [...] RN Medical Devices Implanted Type Area Director Automotive Device Identifier Shelf Expiration Date Model / Serial / Lot [employer] Lyn[address]ent El Dr-08/30/2023 Implanted:Qty: 1 on 08/30/2023 by Christel Lu MD ICD [employer] 12/28/2024 [id number] / [id number] / Description:DX: NICM MRI Conditional under following conditions: Static magnetic field of 1.5 T or 3 T, Max spatial gradient field of 5000 Gauss/cm or less, Max slew rate 200 T/m/s , WHOLE BODY TERESO OF 2 W/KG OR LESS, HEAD TERESO 3.2 W/KG OR LESS , Supine or Prone only [employer] Ra-08/30/2023 Implanted:Qty: 1 on 08/30/2023 by Christel Lu MD Lead Implant [employer] 01/04/2025 [id number] / [id number] / [employer] Rv-08/30/2023 Implanted:Qty: 1 on 08/30/2023 by Christel Lu MD Lead Implant [employer] 04/08/2024 [id number] / [id number] / Cv Synergy Xd Jose-Lad- 021 Implanted:02/18 by Russell Bentley MD (Quantity not on file) Stent Coronary LAD [employer] 10/05/2022 [id number] / / [id number] Cv [employer]nergy Xd Jose-Fosters-2020 Implanted:02/18 by Russell Bentley MD (Quantity not on file) Stent Coronary LAD [employer] 11/17/2022 [id number] / / [id number] Procedures Procedure Name Priority Date/Time Associated Diagnosis Comments ECG 12-LEAD Routine 10/12/2024 3:21 PM BAG PRESS OPERATOR Non-ischemic cardiomyopathy (CMS/HCC HHS/HCC) BASIC METABOLIC PANEL Routine 09/24/2024 long-term use of drug BASIC METABOLIC PANEL Routine 09/18/2024 termination clerk use of drug BASIC METABOLIC PANEL Routine 09/09/2024 ELECTROCARDIOGRAM (NON MIDMARK ACQUIRED) Routine 09/01/2024 10:27 AM BAG PRESS OPERATOR Atrial fibrillation, unspecified type (CMS/HCC HHS/HCC) AICD (automatic cardioverter/defibri llator) present COMPREHENSIVE METABOLIC PANEL Routine 08/31/2024 CBC, MANUAL DIFF Routine 08/31/2024 ECG GENERIC (SCAN ORDER) Routine 025 12:00 AM BAG PRESS OPERATOR IMAGE GENERIC Routine 08/28/2024 12:00 AM BAG PRESS OPERATOR LIPID PANEL Routine 03/27/2021 10:35 AM CDT long-term use of drug Hyperlipidemia, unspecified hyperlipidemia type from Last 3 Months or Most Recently Relevant to Health Maintenance Results * ECG 12 lead (HOSPITAL PERFORMED ONLY) (10/12/2024 3:21 PM BAG PRESS OPERATOR) 10/12/2024 3:21 PM BAG PRESS OPERATOR Narrative [facility] - 10/12/2024 6:34 PM BAG PRESS OPERATOR [address] [place] [address] Test Date: 2024-10-12 Pat Name: JENNIFER COATES Department: 3 Room: Gender: Female Career Technical Education Teacher: : 1940 Requested By: TORO FREIRE Order Number: [id number] Reading MD: Toro Freire Measurements Intervals [place] Rate: 107 P: 69 MO: 160 QRS: 148 QRSD: 120 T: -2 QT: 356 QTc: 477 Interpretive Statements SINUS TACHYCARDIA WITH OCCASIONAL VENTRICULAR PREMATURE COMPLEXES POSSIBLE RIGHT VENTRICULAR HYPERTROPHY [SOME/ALL OF: PROMINENT R IN V1, LATE TRANSITION, RAD, BONILLA, SSS] POSSIBLE ANTERIOR MYOCARDIAL INFARCTION [30 ms Q WAVE IN V3/V4, OR R < 0.2 mV IN V4], PROBABLY OLD PRESS OPERATOR Procedure Note Toro Freire MD - 10/12/2024 [facility] [address] [place] [address] Test Date: 2024-10-12 Pat Name: JENNIFER COATES Department: 3 Room: Gender: Female Career Technical Education Teacher: : 1940 Requested By: TORO FREIRE Order Number: [id number] Reading MD: Toro Freire Measurements Intervals [place] Rate: 107 P: 69 MO: 160 QRS: 148 QRSD: 120 T: -2 QT: 356 QTc: 477 Interpretive Statements SINUS TACHYCARDIA WITH OCCASIONAL VENTRICULAR PREMATURE COMPLEXES POSSIBLE RIGHT VENTRICULAR HYPERTROPHY [SOME/ALL OF: PROMINENT R IN V1,LATE TRANSITION, RAD, BONILLA, SSS] POSSIBLE ANTERIOR MYOCARDIAL INFARCTION [30 ms Q WAVE IN V3/V4, OR R < 0.2mV IN V4], PROBABLY OLD PRESS OPERATOR us Toro Freire MD ECG ORDERABLES Final Result [facility] * (ABNORMAL) BASIC METABOLIC [...] Final Result * ELECTROCARDIOGRAM (09/01/2024 10:27 AM BAG PRESS OPERATOR) 09/01/2024 10:2 7 AM BAG PRESS OPERATOR Narrative [facility] - 09/07/2024 7:54 AM BAG PRESS OPERATOR [facility] [place] [address] Test Date: 2024-09-01 Pat Name: JENNIFER COATES Department: 105 Room: Gender: Female Career Technical Education Teacher: GIO : 1940 Requested By: CHRISTEL LU Order Number: [id number] Reading MD: Christel Lu Measurements Intervals [place] Rate: 91 P: 44 MO: 185 QRS: -54 QRSD: 115 T: 123 QT: 368 QTc: 455 Interpretive Statements SINUS RHYTHM LEFT AXIS DEVIATION MODERATE INTRAVENTRICULAR CONDUCTION DELAY ST DEVIATION AND MODERATE T-WAVE ABNORMALITY, CONSIDER LATERAL ISCHEMIA PRESS OPERATOR Procedure Note Christel Lu MD - 09/07/2024 [facility] [place] [address] [place] [address] Test Date: 2024-09-01 Pat Name: JENNIFER COATES Department: 105 Room: Gender: Female Career Technical Education Teacher: GIO : 1940 Requested By: CHRISTEL LU Order Number: [id number] Reading MD: Christel Lu Measurements Intervals [place] Rate: 91 P: 44 MO: 185 QRS: -54 QRSD: 115 T: 123 QT: 368 QTc: 455 Interpretive Statements SINUS RHYTHM LEFT AXIS DEVIATION MODERATE INTRAVENTRICULAR CONDUCTION DELAY ST DEVIATION AND MODERATE T-WAVE ABNORMALITY, CONSIDER LATERAL ISCHEMIA PRESS OPERATOR us Christel Lu MD PROCEDURES-ORDERABLE NO CHARGE F inal Result [facility] * (ABNORMAL) COMPREHENSIVE METABOLIC PANEL (08/31/2024) SODIUM S/P/B 138 GLUCOSE 103 mg/dL AST 31 BUN 27 CREATININE S/P/B 1.23(A) 0.5 - 1.0 CALCIUM S/P/B 8.0 POTASSIUM S/P/B 3.8 CHLORIDE S/P/B 102 ALT 21 GFR ESTIMATE 42 Narrative Resulting Agency Comment [facility] us Default History Genericprovider LABORATORY Final Result * CBC, MANUAL DIFF (08/31/2024) WBC 7.4 HGB 10.8 HCT 35.8 PLT 231 Narrative Resulting Agency Comment [facility]ly [facility] us Default History Genericprovider LABORATORY Final Result * ECG (08/28/2024 12:00 AM BAG PRESS OPERATOR) 08/28/2024 us Doc Pccl Scanned SCANNING Final Result [facility] * IMAGE STUDY (08/28/2024 12:00 AM BAG PRESS OPERATOR) Anatomical Region Laterality Modality Other 08/28/2024 us Doc Pccl Scanned SCANNING Final Result * LIPID PANEL (03/27/2021 10:35 AM CDT) CHOLESTEROL 201 MG/DL 03/27/2021 11:16 AM CDT [facility] Comment:BORDERLINE HIGH: 200 -239 TRIGLYCERIDES 175 MG/DL 03/27/2021 11:16 AM CDT [facility] Comment:150-199 BORDERLINE H IGH HDL 56 >49 MG/DL 03/27/2021 11:16 AM CDT [facility] LDL (CALCULATED) 110 MG/DL 03/27/20 11:16 AM CDT [facility] Comment:100-129 NEAR OR ABOV E OPTIMAL VLDL CALCULATION 35 MG/DL 03/27/20 11:16 AM CDT [facility] Comment:REFERENCE RANGE NOT ESTABLISHED CHOL/HDL RATIO 3.6 03/27/2021 11:16 AM CDT [facility] Comment:REFERENCE RANGE NOT ESTABLISHED LDL/HDL 2.0 03/27/2021 11:16 AM CDT [facility] Comment:REFERENCE RANGE NOT ESTABLISHED NON HDL CHOLESTEROL 145 MG/DL 03/27/2021 11:16 AM CDT [facility] Comment:REFERENCE RANGE NOT ESTABLISHED 03/27/2021 10:3 5 AM CDT POLLO Brand APRN LABORATORY Final Result [facility] [address] [place] [address], [id number] from Last 3 Months or Most Recently Relevant to Health Maintenance Insurance [facility] Advance Directives Documents on File Type Date Recorded Patient Enterer Expl anation Power of Mine Engineering Superintendent 10/21/2024 2:16 PM 2012 - ALEXANDRA COATES, [facility]; REJI COATES, 1ST ALTERNATE HCA-OTHER; ANGEL COATES, [...] First Alternate Health Care Agent Angel Coates [facility] Agent Care Teams Spiritual Care Coordinator Relationship Specialty Start Date End Date Gino Meyer MD [address] [place] [address] PCP - General INTERNAL MEDICINE 06/11/17 Christel Lu MD [address] [place] [phone] EP Mon[employer]ail Helper CLINICAL CARDIAC ELECTROPHYSIOLOGY 06/12/23 Toro Freire MD [address] [place] [address] [place] Mon[employer]ail Helper CARDIOVASCULAR DISEASE 10/16/24
--- OUTSIDE RECORDS SUMMARY | 2024-10-30 17:42 | XMS_ITS | Encounter Summary ---
Author Organization [facility] Address [address] [place] [address] Care Team Providers Care Geodetic Technician Name Role Phone Toy Warren MD Primary Care Provider [phone] Santos Fuentes MD Unavailable Unavailabl e Gino Meyer MD Primary Care Provider [phone] Shana Adams NP Unavailable Unavailable Christel Lu MD Unavailable Stella Llanos MD Unavailable Encounter Details Date Type Department Care Team (Late st Contact Info) Description 01/31/2017 Abstract [facility] [address] [place] [address] Santos Fuentes MD Social History Tobacco Use Types Packs/Day Years Used Date Smoking Tobacco: Never Alcohol Use Standard Drinks/Week Comments No 0 (1 standard drink = 0.6 oz pur e alcohol) Comments Unknown Sex and Gender Information Value Date Recorded Sex Assigned at Female 09/01/2024 10:13 AM SHERIFF OFFICER Legal Sex Female 10:21 PM CDT Gender Identity Not on file Sexual Orientation Not on file Occupation Industry Job Start Date Job End Date retired Not on file Not on file Not on file documented as of this encounter Plan of Treatment Upcoming Encounters Date Type Department Care Team (Late st Contact Info) Description 12/07/2024 1:15 AM CDT Allied Health/Nurse Visit [facility] [address] [place] [address] Christel Lu MD [address] [place] [address] 12/21/2024 2:30 PM CDT Office Visit [facility] [address] [place] [address] Maciel Wang PATanishaC [address] [place] [address] 12/21/2024 2:30 PM CDT Allied Health/Nurse Visit [facility] [address] [place] [address] Christel Lu MD [address] [place] [address] 03/29/2025 1:00 PM CDT Office Visit [facility] [place] [address] Stella Llanos MD [address] [place] [address] documented as of this encounter Visit Diagnoses Not on filedocumented in this encounter Additional Health Concerns Infection Onset Date Last Indicated Resolved Time COVID-19 Rule Out 04/24/2022 04/24/2022 04/24/2022 4:06 AM CDT documented as of this encounter Care Teams Geodetic Technician Relationship Specialty Start Date End Date Toy Warren MD [address] [place] [address] PCP - General INTERNAL MEDICINE 02/06/17 06/10/17 Gino Meyer MD [address] [place] [address] PCP - General INTERNAL MEDICINE 06/11/17 Santos Fuentes MD [address] [place] [address] [place] Commercial Diver CARDIOVASCULAR DISEASE 02/06/17 08/31/24 Shana Adams NP [address] [place] [address] Referring Physician Nurse Practitioner [facility] 02/27/23 Christel Lu MD [address] [place] [address] EP Commercial Diver CLINICAL CARDIAC ELECTROPHYSIOLOGY 06/12/23 Stella Llanos MD [address] [place] [address] [place] Commercial Diver CARDIOVASCULAR DISEASE 10/16/24 documented as of this encounter
--- OUTSIDE RECORDS SUMMARY | 2024-10-30 17:42 | XMS_ITS | Encounter Summary ---
Author Organization [facility] Address [address] [place] [address] Care Team Providers Care Water Use Inspector Name Role Phone Santos Fuentes MD Unavailable Unavailabl e Gino Meyer MD Primary Care Provider [phone] Christel Lu MD Unavailable Stella Llanos MD Unavailable Reason for Visit * Reason Comments Image (SCAN) Encounter Details Date Type Department Care Team (Late st Contact Info) Description 08/28/2024 Scan [facility] [address] [place] [address] Scanned, Doc Pccl Image (SCAN) [...] Sex Assigned at Female 09/01/2024 10:13 AM LICENSED HOME INSPECTOR Legal Sex Female 10:21 PM CDT Gender [...] 12/07/2024 1:15 AM CDT Allied Health/Nurse Visit [facility] [address] [place] [address] Christel Lu MD [address] [place] [address] 12/21/2024 2:30 PM CDT Office Visit [facility] [address] [place] [address] Maciel Wang PATanishaC [address] [place] [address] 12/21/2024 2:30 PM CDT Allied Health/Nurse Visit [facility] [address] [place] [address] Christel Lu MD [address] [place] [address] 03/29/2025 1:00 PM CDT Office [facility] [place] [address] Stella Llanos MD [address] [place] [address] documented as of this encounter [...] Comments IMAGE GENERIC Routine 08/28/2024 12:00 AM LICENSED HOME INSPECTOR documented in this encounter Results * IMAGE STUDY (08/28/2024 12:00 AM LICENSED HOME INSPECTOR) Anatomical Region Laterality Modality Other 08/28/2024 us Doc Pccl Scanned SCANNING Final Result documented in this encounter Visit Diagnoses Not on filedocumented in this encounter Care Teams Water Use Inspector Relationship Specialty Start Date End Date Gino Meyer MD [address] [place] [address] PCP - General INTERNAL MEDICINE 06/11/17 Santos Fuentes MD [place] [employer] CARDIOVASCULAR DISEASE 02/06/17 08/31/24 Christel Lu MD [address] [place] [address] EP Hand Turner CLINICAL CARDIAC ELECTROPHYSIOLOGY 06/12/23 Stella Llanos MD [address] [place] [address] [place] [employer] CARDIOVASCULAR DISEASE 10/16/24 documented as of this encounter
--- OUTSIDE RECORDS SUMMARY | 2024-10-30 17:42 | XMS_ITS | Encounter Summary ---
Author Organization [facility] Address [address] [place] [address] Care Team Providers Care Shop Estimator Name Role Phone Santos Fuentes MD Unavailable Unavailabl e Gino Meyer MD Primary Care Provider [phone] Shana Adams NP Unavailable Unavailable Christel Lu MD Unavailable Stella Llanos MD Unavailable Encounter Details Date Type Department Care Team (Late st Contact Info) Description 12/06/2022 Hospital Follow-up Call [facility] [address] [place] [address] Stephie Arreola, RN Social History [...] Sex Assigned at Female 09/01/2024 10:13 AM FIELD REPORTER Legal Sex Female 10:21 PM CDT Gender Identity Not on file Sexual Orientation Not on file Occupation Industry Job Start Date Job End Date retired Not on file Not on file Not on file COVID-19 Exposure Response Date Recorded In the last 10 days, have dayv paulino been in contact with someone who [...] 1:15 AM CDT [facility] [address] [place] [address] Christel Lu MD [address] [place] [address] 12/21/2024 2:30 PM CDT [facility] [address] [place] [address] Maciel Wang, PATanishaC [address] [place] [address] 12/21/2024 2:30 PM CDT [facility] [address] [place] [address] Christel Lu MD [address] [place] [address] 03/29/2025 1:00 PM CDT [facility] [place] [address] Stella Llanos MD [address] [place] [address] documented as of this encounter [...] on filedocumented in this encounter Care Teams Shop Estimator Relationship Specialty Start Date End Date Gino Meyer MD [address] [place] [address] PCP - General INTERNAL MEDICINE 06/11/17 Santos Fuentes MD [employer] CARDIOVASCULAR DISEASE 02/06/17 08/31/24 Shana Adams NP [address] [place] [address] Referring Physician Nurse Practitioner Family 02/27/23 Christel Lu MD [address] [place] [address] EP School Commissioner CLINICAL CARDIAC ELECTROPHYSIOLOGY 06/12/23 Stella Llanos MD [address] [place] [address] [employer] CARDIOVASCULAR DISEASE 10/16/24 documented as of this encounter
--- OUTSIDE RECORDS SUMMARY | 2024-10-30 17:42 | XMS_ITS | Encounter Summary ---
Author Organization [facility] Address [address] [place] [address] Care Team Providers Care Field Marketer Name Role Phone Gino Meyer MD Primary Care Provider [phone] Christel Lu MD Unavailable Stella Llanos MD Unavailable Reason for Referral * Imaging (Routine) - Closed Specialty Diagnoses / Procedures Referred By Contac t Referred To Contact RADIOLOGY Diagnoses CHF (congestive heart failure) (CMS/HCC [facility]) Procedures USE ECHOCARDIOGRAM Stella Llanos MD [address] [place] [address] Phone: tel: fax: Referral ID Status Reason Start Date Expiration Date Visits Re quested Visits Authorized [id number] Closed 10/13/2024 11/13/2025 1 1 Reason for Visit * Imaging (Routine) - Closed Specialty Diagnoses / Procedures Referred By Contac t Referred To Contact RADIOLOGY Diagnoses CHF (congestive heart failure) ([facility]) Procedures USE ECHOCARDIOGRAM Stella Llanos MD [address] [place] [address] Phone: tel: fax: Referral ID Status Reason Start Date Expiration Date Visits Re quested Visits Authorized [id number] Closed 10/13/2024 11/13/2025 1 1 Encounter Details Date Type Department Care Team (Late st Contact Info) Description 10/29/2024 3:30 PM CDT Hospital Encounter [facility] [address] [place] [address] Stella Llanos MD [address] [place] [address] Arrived Social History Tobacco Use [...] Sex Assigned at Female 09/01/2024 10:13 AM HONING MACHINE OPERATOR TOOL Legal Sex Female 10:21 PM CDT Gender Identity Not on file Sexual Orientation Not on file Occupation Industry Job Start Date Job End Date retired Not on file Not on file Not on file documented as of this encounter Functional Status * Are you deaf or do you have serious difficulty hearing Answer Date of Assessment Author Status No 07/23/2023 6:28 AM HONING MACHINE OPERATOR TOOL Saroj Matthews RN Active * Are you blind or do you have serious difficulty seeing, even when wearing glasses? Answer Date of Assessment Author Status No 07/23/2023 6:28 AM HONING MACHINE OPERATOR TOOL Saroj Matthews RN Active * Do you [...] 12/07/2024 1:15 AM CDT Allied Health/Nurse Visit [facility] [address] [place] [phone] Christel Lu MD [address] [place] [phone] 12/21/2024 2:30 PM CDT Office Visit [facility] [address] [place] [phone] Maciel Wang PATanishaC [address] [place] [address] 12/21/2024 2:30 PM CDT Allied Health/Nurse Visit [facility] [address] [place] [address] Christel Lu MD [address] [place] [phone] 03/29/2025 1:00 PM CDT Office Visit [facility] [place] [address] Stella Llanos MD [address] [place] [address] Pending Results Name Type Priority Associated Diagnoses Date /Time USE ECHOCARDIOGRAM ECHO Routine CHF (congestive heart failure) ([facility]) 10/29/2024 4:28 PM CDT Scheduled Orders Name Type Priority Associated Diagnoses Orde r Schedule USE ECHOCARDIOGRAM ECHO Routine CHF (congestive heart failure) ([facility]) Once for 1 Occurrences starting 10/29/2024 until [...] Visit Diagnoses Diagnosis CHF (congestive heart failure) ([facility]) Congestive heart failure, unspecified documented in this encounter Care Teams Field Marketer Relationship Specialty Start Date End Date Gino Meyer MD [address] [place] [address] PCP - General INTERNAL MEDICINE 06/11/17 Christel Lu MD [address] [place] [phone] EP Commissions Analyst CLINICAL CARDIAC ELECTROPHYSIOLOGY 06/12/23 Stella Llanos MD [address] [place] [address] [place] Commissions Analyst CARDIOVASCULAR DISEASE 10/16/24 documented as of this encounter
--- NOTE | 2024-10-30 17:52 | ED_ITS ---
HPI - SOB/Dyspnea General Chief Complaint: Shortness of Breath/Dyspnea Stated Complaint: elevated b/p Time Seen by Provider: 10/30/24 17:17 Source: patient Mode of arrival: wheelchair Limitations: no limitations History of Present Illness HPI Narrative: This is an 84-year-old female with history of CHF (EF of 20-25% as of May 2024), status post defibrillator placement, coronary artery disease and CKD, who presents to the emergency department with complaints of low blood pressure and shortness of breath. The patient states she woke this and felt short of breath associated with dull substernal chest pain. She states that was worse than her baseline. She took a nitroglycerin at 16:30 today with near resolution of her chest discomfort. She states her breathing has also improved and she feels about normal. She was advised to seek evaluation by staff at her assisted living facility. She has no other complaints at this. Related Data Home Medications ?Medication ?Instructions ?Recorded ?Confirmed ?Last Taken ?Type atorvastatin 10 mg tablet 10 mg PO DAILY 11/13/22 10/01/24 04/03/24 20:00 History montelukast 10 mg tablet 10 mg PO DAILY 11/13/22 10/01/24 04/03/24 20:00 History spironolactone 25 mg tablet 25 mg PO BID 11/13/22 10/01/24 04/04/24 08:00 History aspirin 81 mg tablet 81 mg PO DAILY 11/23/23 10/01/24 04/04/24 08:00 History sacubitril 24 mg-valsartan 26 mg 1 tablet PO BID 11/23/23 10/01/24 04/04/24 08:00 History tablet (Entresto) empagliflozin 10 mg tablet 10 mg PO DAILY 01/25/24 10/01/24 04/04/24 08:00 History (Jardiance) gabapentin 100 mg capsule 300 mg PO BID 04/05/24 10/01/24 04/04/24 17:00 History anastrozole 1 mg tablet 1 mg PO DAILY 08/28/24 10/01/24 Unknown History apixaban 5 mg tablet (Eliquis) 5 mg PO BID 08/28/24 10/01/24 Unknown History duloxetine 30 mg capsule,delayed 30 mg PO BID 08/28/24 10/01/24 Unknown History release sprinkle hydrocodone 5 mg-acetaminophen 325 1 tablet PO Q8H PRN pain 08/28/24 10/01/24 Unknown History mg tablet acetaminophen 650 mg 650 mg PO Q8H PRN pain 10/01/24 10/01/24 Unknown History tablet,extended release (Tylenol Arthritis Pain) metolazone 2.5 mg tablet 2.5 mg PO DAILY DIURETIC 10/01/24 10/30/24 Unknown History digoxin 125 mcg (0.125 mg) tablet 0.125 mg PO DAILY 10/30/24 Unknown History multivitamin-ferrous 1 tablet PO DAILY 10/30/24 Unknown History fumarate-folic acid 18 mg-400 mcg tablet (Centrum Complete) nitroglycerin 0.4 mg sublingual 0.4 mg sublingual ONCE 10/30/24 Unknown History tablet Allergies Allergy/AdvReac Type Severity Reaction Status Date / Time TARA Inhibitors AdvReac Mild Cough Verified 10/30/24 18:05 Review of Systems 2 Review of Systems: All systems reviewed & are unremarkable except as noted in HPI and below PMFSH Past Medical History Medical History Hyperlipidemia Chronic kidney disease Nonischemic cardiomyopathy Echocardiogram 2014 demonstrate EF 30 35% with severe generalized left globe ventricular systolic dysfunction Hip osteoarthritis 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. Placed due to nonischemic cardiomyopathy and paroxysmal narrow complex arrhythmia H/O mastectomy Family History Family History Father , at age 81 Family history of coronary artery disease Social History Social History Social History: She was for 56 years but has been since approximately 2016. 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 She raised 3 children. Her oldest son of prostate cancer within the last year. Code status: DNR/DNI per patient request and confirmed with prior the records Surrogate decision maker: Son Smoking status: Never smoker Second hand tobacco smoke exposure: No Alcohol intake: never Substance use: never Do You Feel Safe in your Home?: Yes Lack of Transportation: No Lack of Food: Never True Current Housing: I Have Housing Concerned About Future Housing: No Difficulty Paying Gas/Electric Bills: No Difficulty Paying for Meds: No Currently Unemployed: No Education: High School Diploma/GED Difficulty w/ Childcare or Family Care: No Spiritual care concerns: No Exam 2 Narrative: GENERAL: Well-developed, well-nourished, and in no acute distress. HEAD: Normocephalic, atraumatic. EYES: PERRLA and EOMI. NECK: Supple. No JVD CHEST: Faint rales in the bilateral posterior, inferior lung butcher. No respiratory distress. No rales or rhonchi HEART: Regular rate and rhythm. No murmur heard. Normal peripheral pulses. ABDOMEN: Soft, nontender, nondistended, normal active bowel sounds. EXTREMITIES: Normal range of motion. 2+ bilateral lower extremity edema from the feet to the knees SKIN: Warm, dry, no rash. NEURO: Alert and oriented x3. No focal deficit. Moving all 4 limbs spontaneously PSYCH: Normal mood and affect. Course Course Emergency Course: 18:42 - CBC demonstrates normal white blood cell count of 9 with hemoglobin 12 and platelets of 244. Chemistries demonstrate mildly elevated potassium of 5.3, mild hyponatremia with sodium of 133 and creatinine elevation of 1.7. BNP elevated to 25,409 troponin within normal limits at 36 and decreased from 70 for in August 2024. Digoxin level less than 0.2. D-dimer 0.86, age adjusted D- dimer cutoff 0.83. Considering her current use of Eliquis I have decreased suspicion for PE. Chest x-ray demonstrates Bilateral basal atelectasis versus pneumonia with bilateral pleural effusion. Underlying pulmonary edema is not excluded. I suspect the patient's symptoms are related to CHF exacerbation. Will obtain a CT chest to evaluate for pneumonia vs edema. Will give the patient Lasix. The patient had a similar presentation in August 2024 with overall improvement. I discussed these findings with recommendations with the patient Who is agreeable to admission. The patient wishes to remain DNR/DNI. 19:32 - Non-contrast CT chest obtained. There appear to be focal consolidations with bilateral pleural effusions by my review. There is no noted pneumothorax. Will give Cefepime and Azithromycin and continue with plan for admission. 20:15 - Radiology interpretation of CT chest demonstrates Soft tissue density in the left apical area which may be atelectatic or nodule. Pleural thickening is also seen in the left upper lobe area anteriorly. Bilateral moderate to pleural effusion with adjacent atelectasis and Borderline left lymph nodes in the paratracheal and precarinal areas. Will continue with plan for 1st dose of antibiotics and admission with diuretics. Vital Signs Vital signs: Vital Signs Temperature 98.3 F 10/30/24 17:22 Pulse Rate 48 L 10/30/24 17:22 Respiratory Rate 18 10/30/24 17:22 Blood Pressure 93/76 L 10/30/24 17:22 Pulse Oximetry 97 10/30/24 17:22 Oxygen Delivery Room Air 10/30/24 17:22 Temperature 98.3 F 10/30/24 17:22 Pulse Rate 98 10/30/24 19:44 Respiratory Rate 17 10/30/24 19:44 Blood Pressure 102/72 10/30/24 18:30 Pulse Oximetry 98 10/30/24 19:44 Oxygen Delivery Room Air 10/30/24 19:44 MDM - SOB/Dyspnea MDM Narrative Medical decision making narrative: plan: Labs, imaging, EKG, troponin, reassess Differential Diagnosis Differential diagnosis: Likely congestive heart failure, community acquired pneumonia and other ( ACS, metabolic abnormality, renal failure, digoxin toxicity, pulmonary edema, other) Lab Data 10/30/24 18:05 10/30/24 18:05 Labs: Lab Results 10/30/24 10/30/24 Range/Units 18:05 18:05 WBC 9.4 (4.8-10.8) K/mm3 RBC 4.47 (4.20-5.40) M/mm3 Hgb 12.0 (11.7-13.8) g/dL Hct 39.8 (35.0-42.0) % MCV 89.0 (78.0-102.0) fL MCH 26.8 L (27.0-31.0) pg MCHC 30.2 L (32-36) g/dL RDW 23.4 H (11.6-14.4) % Plt Count 244 (150-420) K/mm3 MPV 10.2 (9.2-11.8) fl Immature Gran % (Auto) 0.4 H (0.0-0.0) % Neut % (Auto) 84.9 H (50.0-70.0) % Lymph % (Auto) 6.5 L (18.0-42.0) % Clarke % (Auto) 7.6 (2.0-11.0) % Eos % (Auto) 0.1 L (1.0-6.0) % Baso % (Auto) 0.5 (0.0-1.0) % Lymph # (Auto) 0.61 L (1.10-4.50) K/mm3 Clarke # (Auto) 0.72 (0.10-0.90) K/mm3 Eos # (Auto) 0.01 L (0.02-0.50) K/mm3 Baso # (Auto) 0.05 (0.00-0.10) K/mm3 Abs Immat Gran (auto) 0.04 H (0.00-0.00) K/mm3 Absolute Neuts (auto) 8.01 H (1.70-7.20) K/mm3 Absolute Nucleated RBC 0.00 (0.00-0.00) K/mm3 Nucleated RBC % 0.0 (0-0.0) % D-Dimer 0.86 H* (0.19-0.50) mg/L Sodium 133 L (136-145) mmol/L Potassium 5.3 H (3.5-5.1) mmol/L Chloride 98 (98-108) mmol/L Carbon Dioxide 21 (21-32) mmol/L Anion Gap 14 H (4-12) mmol/L BUN 36 H (7-18) mg/dL Creatinine 1.70 H (0.55-1.02) mg/dL Estim Creat Clear Calc 21 ml/min Estimated GFR 29 L (59 - ) Glucose 143 H (70-99) mg/dL Calculated Osmolality 286 (285-295) mOsm/kg Calcium 9.2 (8.5-10.1) mg/dL Total Bilirubin 1.2 H (0.00-1.00) mg/dL AST 16 (15-37) U/L ALT 14 (14-59) U/L Alkaline Phosphatase 90 (46-116) U/L Troponin I Cancelled 36.1 NT-Pro-B Natriuret Pep 45592 H (0-450) pg/mL Total Protein 7.5 (6.4-8.2) g/dL Albumin 3.4 (3.4-5.0) g/dL Digoxin < 0.2 L (0.9-2.0) ng/mL ECG Data EKG #1: Attestation: I personally reviewed and interpreted this ECG as follows: ECG completion date: 10/30/24 ECG completion time: 17:28 Prior ECG tracings: available for review Interpretation: Sinus tachycardia, rate 106 right axis deviation, right bundle-branch block, [address] segment elevations in V2 and V3 without reciprocal changes. No T-wave inversions. Prolonged QRS of 156 with otherwise normal intervals and QTC of 463. Compared to EKG done in August 2024, there are no significant changes. Discharge Plan Discharge Clinical Impression: Acute exacerbation of CHF (congestive heart failure), BREEZY (acute kidney injury), Hyponatremia, Serum digoxin level below therapeutic range, Pleural effusion Patient Disposition: Still a Patient Condition: Serious Time of Disposition: 19:20
--- NOTE | 2024-10-30 18:05 | PC.NURSE ---
On 10/30/24, the student, [jairo helms ], provided care and completed [facility] documentation on this patient. I have reviewed the student's documentation and agree with the findings.
[2024-10-30 18:08] LABS: Basophils Absolute Auto 0.05 K/mm3 (0.00-0.10); Basophils Percent Auto 0.5 % (0.0-1.0); Eosinophils Absolute Auto 0.01 K/mm3 (0.02-0.50); Eosinophils Percent Auto 0.1 % (1.0-6.0); Hematocrit 39.8 % (35.0-42.0); Immature Granulocyte Absolute 0.04 K/mm3 (0.00-0.00); Immature Granulocyte Percent A 0.4 % (0.0-0.0); Lymphocytes Absolute Auto 0.61 K/mm3 (1.10-4.50); Lymphocytes Percent Auto 6.5 % (18.0-42.0); Mean Corpuscular HGB Conc 30.2 g/dL (32-36); Mean Corpuscular Hemoglobin 26.8 pg (27.0-31.0); Mean Platelet Volume 10.2 fl (9.2-11.8); Monocytes Absolute Auto 0.72 K/mm3 (0.10-0.90); Monocytes Percent Auto 7.6 % (2.0-11.0); Neutrophils Absolute Auto 8.01 K/mm3 (1.70-7.20); Neutrophils Percent Auto 84.9 % (50.0-70.0); Platelet Count Result 244 K/mm3 (150-420); Red Blood Count 4.47 M/mm3 (4.20-5.40); Red Cell Distribution Width 23.4 % (11.6-14.4); White Blood Count 9.4 K/mm3 (4.8-10.8)
[2024-10-30 18:24] LABS: D Dimer 0.86 mg/L (0.19-0.50)
[2024-10-30 18:30] VITALS: BP 102/72; PULSE 101; RESP 20; O2SAT 95
[2024-10-30 18:32] LABS: Alanine Aminotransferase 14 U/L (14-59); Albumin Level 3.4 g/dL (3.4-5.0); Alkaline Phosphatase 90 U/L (46-116); Anion Gap 14 mmol/L (4-12); Aspartate Amino Transferase 16 U/L (15-37); Bilirubin,Total 1.2 mg/dL (0.00-1.00); Blood Urea Nitrogen 36 mg/dL (7-18); Calcium 9.2 mg/dL (8.5-10.1); Carbon Dioxide 21 mmol/L (21-32); Chloride 98 mmol/L (98-108); Digoxin < 0.2 ng/mL (0.9-2.0); Estimated CRCL calculation 21 ml/min; Estimated Glomerular Filt Rate 29; Glucose 143 mg/dL (70-99); NT Pro B Type Natriuretic Pept 25409 pg/mL (0-450); Osmolality Calculated 286 mOsm/kg (285-295); Potassium 5.3 mmol/L (3.5-5.1); Sodium 133 mmol/L (136-145); Total Protein 7.5 g/dL (6.4-8.2); Troponin I 36.1 ng/L (0.00-60.4)
[2024-10-30] MEDS: FUROSEMIDE INJ 40 MG/4 ML VIAL IV PUSH (19:07)
[2024-10-30 19:40] VITALS: BMI 28.8
[2024-10-30 19:44] VITALS: PULSE 98; RESP 17; O2SAT 98
--- NOTE | 2024-10-30 19:56 | ADMGEN ---
This patient, Jennifer Moreau, was admitted to 2nd Floor Room 208-1. Patient oriented to hospital policies and general routines including ID bracelet, bed and alarms, visiting hours, pain management, procedures, bathroom and other care routines, personal items, smoking policy, room service/diet, and visiting hours. Information on how to activate the Rapid Response Team has been discussed. Patient are encouraged to report perceived risks to care and to ask questions if they do not understand what they are told or what they should do.
[2024-10-30 19:59] LABS: Glucose Point of Care 177 mg/dl (65-105)
[2024-10-30 20:00] VITALS: PULSE 100; PULSE 98; RESP 17; O2SAT 98
[2024-10-30] MEDS: CEFEPIME 2 GM/NS 50 ML 2 GM/50 ML BAG IVPB (20:11)
[2024-10-30] MEDS: AZITHROMYCIN 250 MG TABLET 500 MG PO (20:12)
[2024-10-30 21:27] LABS: Troponin I 36.5 ng/L (0.00-60.4)
[2024-10-30] MEDS: HYDROcodone/acetaminophen (*CRX) 5-325 MG TABLET 1 TAB PO (22:07)
[2024-10-30] MEDS: SACUBITRIL/VALSARTAN 24-26 MG TABLET 0.5 TAB PO (22:07)
[2024-10-31] VITALS (8 sets, daily range): BP systolic 96–107; BP diastolic 66–72; PULSE 81–97; RESP 16–18; TEMP 36–36.3; O2SAT 94–97
[2024-10-31] MEDS: HYDROcodone/acetaminophen (*CRX) 5-325 MG TABLET 1 TAB PO ×2 (04:56→20:24)
[2024-10-31 05:20] LABS: Basophils Absolute Auto 0.05 K/mm3 (0.00-0.10); Basophils Percent Auto 0.7 % (0.0-1.0); Eosinophils Absolute Auto 0.09 K/mm3 (0.02-0.50); Eosinophils Percent Auto 1.2 % (1.0-6.0); Hemoglobin 10.6 g/dL (11.7-13.8); Immature Granulocyte Absolute 0.03 K/mm3 (0.00-0.00); Immature Granulocyte Percent A 0.4 % (0.0-0.0); Lymphocytes Percent Auto 9.6 % (18.0-42.0); Mean Corpuscular HGB Conc 29.4 g/dL (32-36); Mean Corpuscular Hemoglobin 26.4 pg (27.0-31.0); Mean Corpuscular Volume 89.8 fL (78.0-102.0); Mean Platelet Volume 10.3 fl (9.2-11.8); Monocytes Absolute Auto 0.75 K/mm3 (0.10-0.90); Monocytes Percent Auto 10.3 % (2.0-11.0); Neutrophils Absolute Auto 5.68 K/mm3 (1.70-7.20); Neutrophils Percent Auto 77.8 % (50.0-70.0); Platelet Count Result 207 K/mm3 (150-420); Red Blood Count 4.01 M/mm3 (4.20-5.40); Red Cell Distribution Width 23.2 % (11.6-14.4); White Blood Count 7.3 K/mm3 (4.8-10.8)
[2024-10-31 05:30] LABS: Anion Gap 10 mmol/L (4-12); Blood Urea Nitrogen 38 mg/dL (7-18); Calcium 8.8 mg/dL (8.5-10.1); Carbon Dioxide 25 mmol/L (21-32); Chloride 101 mmol/L (98-108); Estimated CRCL calculation 25 ml/min; Estimated Glomerular Filt Rate 30; Glucose 99 mg/dL (70-99); Osmolality Calculated 291 mOsm/kg (285-295); Potassium 4.4 mmol/L (3.5-5.1); Sodium 136 mmol/L (136-145)
[2024-10-31 08:29] LABS: Magnesium 2.5 mg/dL (1.8-2.4)
--- NOTE | 2024-10-31 09:26 | P.HP_ITS ---
H&P: HPI History of Present Illness Date/Time: 10/31/24 09:26 Chief Complaint: shortness a breath/dyspnea Narrative: Patient is a 84-year-old female with a significant past medical history of CKD, breast cancer, coronary artery disease, CHF with reduced ejection fraction 20%, cardiac defibrillator, osteoarthritis presents to the hospital with shortness of breath /dyspnea and hypotension. Per patient and family patient was having low blood pressures at the assisted living facility and staff requested she seek medical attention. patient had recent hospitalization in August of this year for CHF exacerbation. She denies any fever, chills, nausea, vomiting, diarrhea, abdominal pain, chest pain. She is SOB with talking and exertion, reports leg swelling. Workup in the hospital included a chest x-ray which showed a small pleural effusion a CT chest was performed that showed bilateral moderate pleural effusions and a soft tissue density in the left apical area still present from previous CXR 08/2024. Labs unremarkable except [place] of >78[address] initially patient was treated for suspicion of pneumonia and CHF exacerbation she was started on IV azithromycin and cefepime as well as given IV Lasix in the emergency department. Patient was admitted to the medical unit for further evaluation and treatment of CHF exacerbation with pleural effusions. patient had normal WBCs and it remained afebrile on room air was less suspicious for any type pneumonias and she was just recently treated so discontinued antibiotic therapy. Review of Systems Review of Systems: All systems reviewed & are unremarkable except as noted in HPI and below Constitutional: Constitutional: Reports as per HPI and Reports no additional constitutional complaints Eyes: Eyes: Reports as per HPI and Reports no additional eye complaints ENT: Reports system reviewed and no additional complaints, except as documented and Reports as per HPI Cardiovascular: Cardiovascular: Reports as per HPI and Reports no additional cardiovascular complaints Respiratory: Respiratory: Reports as per HPI and Reports no additional respiratory complaints Gastrointestinal: Gastrointestinal: Reports as per HPI and Reports no additional gastrointestinal complaints Genitourinary: Genitourinary: Reports no additional female genitourinary complaints and Reports as per HPI Musculoskeletal: Musculoskeletal: Reports no additional musculoskeletal complaints and Reports as per HPI Integumentary/Breasts: Skin/Breast: Reports system reviewed and no additional complaints, except as docu and Reports as per HPI Neurologic: Reports system reviewed and no additional complaints, except as documented and Reports as per HPI Psychiatric: Psychiatric: Reports no additional psychiatric complaints and Reports as per HPI [facility] Past Medical History Medical History Hyperlipidemia Chronic kidney disease Nonischemic cardiomyopathy Echocardiogram 2014 demonstrate EF 30 35% with severe generalized left globe ventricular systolic dysfunction Hip osteoarthritis 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 Placed due to nonischemic cardiomyopathy and paroxysmal narrow complex arrhythmia H/O mastectomy Family History Family History Father , at age 81 Family history of coronary artery disease Social History Social History Social History: She was for 56 years but has been since approximately 2016. 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 She raised 3 children. Her oldest son of prostate cancer within the last year. Code status: DNR/DNI per patient request and confirmed with prior the records Surrogate decision maker: Son Smoking status: Never smoker Second hand tobacco smoke exposure: No Alcohol intake: never Substance use: never Substance use type: does not use Do You Feel Safe in your Home?: Yes Lack of Transportation: No Lack of Food: Never True Current Housing: I Have Housing Concerned About Future Housing: No Difficulty Paying Gas/Electric Bills: No Difficulty Paying for Meds: No Currently Unemployed: No Education: High School Diploma/GED Difficulty w/ Childcare or Family Care: No Spiritual care concerns: No Meds Home Medications and Allergies Home Medications ?Medication ?Instructions ?Recorded ?Confirmed ?Type atorvastatin 10 mg tablet 10 mg PO DAILY 11/13/22 10/30/24 History montelukast 10 mg tablet 10 mg PO DAILY 11/13/22 10/30/24 History spironolactone 25 mg tablet 25 mg PO BID 11/13/22 10/30/24 History aspirin 81 mg tablet 81 mg PO DAILY 11/23/23 10/30/24 History sacubitril 24 mg-valsartan 26 mg 1 tablet PO BID 11/23/23 10/30/24 History tablet (Entresto) empagliflozin 10 mg tablet 10 mg PO DAILY 01/25/24 10/30/24 History (Jardiance) furosemide 40 mg tablet 40 mg PO BID #60 tabs 02/11/24 10/30/24 Rx gabapentin 100 mg capsule 300 mg PO BID 04/05/24 10/30/24 History carvedilol 12.5 mg tablet (Coreg) 12.5 mg PO Q12HR #90 tabs 04/06/24 10/30/24 Rx anastrozole 1 mg tablet 1 mg PO DAILY 08/28/24 10/30/24 History apixaban 5 mg tablet (Eliquis) 5 mg PO BID 08/28/24 10/30/24 History duloxetine 30 mg capsule,delayed 30 mg PO BID 08/28/24 10/30/24 History release sprinkle hydrocodone 5 mg-acetaminophen 325 1 tablet PO Q8H PRN pain 08/28/24 10/30/24 History mg tablet acetaminophen 650 mg 650 mg PO Q8H PRN pain 10/01/24 10/30/24 History tablet,extended release (Tylenol Arthritis Pain) metolazone 2.5 mg tablet 2.5 mg PO DAILY DIURETIC 10/01/24 10/30/24 History digoxin 125 mcg (0.125 mg) tablet 0.125 mg PO DAILY 10/30/24 10/30/24 History multivitamin-ferrous 1 tablet PO DAILY 10/30/24 10/30/24 History fumarate-folic acid 18 mg-400 mcg tablet (Centrum Complete) nitroglycerin 0.4 mg sublingual 0.4 mg sublingual ONCE 10/30/24 10/30/24 History tablet Allergies Allergy/AdvReac Type Severity Reaction Status Date / Time PETER Inhibitors AdvReac Mild Cough Verified 10/30/24 18:05 Vital Signs Vital Signs - 24 hr 10/30/24 17:22 10/30/24 17:30 10/30/24 17:40 Temperature 98.3 F Pulse Rate 48 L 105 H Respiratory Rate 18 20 Blood Pressure 93/76 L 111/77 Pulse Oximetry 97 98 97 Oxygen Delivery Room Air Room Air Room Air 10/30/24 18:30 10/30/24 19:44 10/30/24 20:00 Temperature Pulse Rate 101 H 98 98 Respiratory Rate 20 17 17 Blood Pressure 102/72 Pulse Oximetry 95 98 98 Oxygen Delivery Room Air Room Air Room Air 10/30/24 20:00 10/31/24 00:00 10/31/24 00:00 Temperature 97.4 F L Pulse Rate 100 92 92 Respiratory Rate 17 Blood Pressure 96/71 L Pulse Oximetry 97 Oxygen Delivery Room Air 10/31/24 04:00 10/31/24 08:02 Temperature Pulse Rate 81 82 Respiratory Rate 16 Blood Pressure Pulse Oximetry 94 Oxygen Delivery Room Air Exam Narrative: Patient SOB and winded with general conversation Const: General: comfortable and no acute distress HENMT: Mouth: Yes moist mucous membranes Eyes: General: appearance normal, both eyes and all related structures Pupils: Equal, round and reactive pupils present Neck: Neck: supple and no JVD Resp: Auscultation: crackles bilateral in the mid lung butcher and in the lower lung butcher and diffuse Cardio: Rate: regular rate Rhythm: regular rhythm GI: GI Palp: Yes Soft to palpation Auscultation: normal bowel sounds Skin: General skin exam: normal color and no rashes or lesions noted Wounds: no wounds Neuro: Speech: normal speech Extrem: General: edema bilateral and pedal edema bilaterally Psych: Mental Status: mental status grossly normal H&P: Results Labs Labs: Short CBC 10/30/24 10/31/24 Range/Units 18:05 05:15 WBC 9.4 7.3 (4.8-10.8) K/mm3 Hgb 12.0 10.6 L (11.7-13.8) g/dL Hct 39.8 36.0 (35.0-42.0) % Plt Count 244 207 (150-420) K/mm3 BMP 10/30/24 10/31/24 18:05 05:15 Sodium 133 L 136 Potassium 5.3 H 4.4 Chloride 98 101 Carbon Dioxide 21 25 BUN 36 H 38 H Creatinine 1.70 H 1.65 H Glucose 143 H 99 Calcium 9.2 8.8 Cardiac Enzymes 10/30/24 10/30/24 10/30/24 Range/Units 18:05 18:05 21:05 Troponin I Cancelled 36.1 36.5 Liver Function 10/30/24 Range/Units 18:05 Total Bilirubin 1.2 H (0.00-1.00) mg/dL AST 16 (15-37) U/L ALT 14 (14-59) U/L Alkaline Phosphatase 90 (46-116) U/L Albumin 3.4 (3.4-5.0) g/dL Imaging CT scan - chest: Radiologist's impression: XR chest 1V portable Ordering provider: Bennett Tyler MD History: 84 years Female with . Chest pain/ dyspnea . Comparison: August 28, 2024 FINDINGS: MEDIASTINUM: The cardiac silhouette is slightly enlarged. Right bipolar pacemaker. Congestive osmar. LUNGS: No pneumothorax. Bilateral basal opacification suggestive of atelectasis versus pneumonia with bilateral pleural effusion more on the left. Underlying emphysematous changes. OTHER: No free air under the diaphragm. Degenerative changes of the spine. IMPRESSION: Bilateral basal atelectasis versus pneumonia with bilateral pleural effusion. Underlying pulmonary edema is not excluded. Assessment and Plan Assessment and plan (1) Heart failure, chronic, with acute decompensation: Qualifiers: Heart failure type: systolic Qualified Code(s): I50.23 - Acute on chronic systolic (congestive) heart failure Code(s): I50.9 - Heart failure, unspecified Status: Acute Assessment and Plan: * chest CTshowing small pleural effusions cardiomegaly and Soft tissue density in the left apical area which may be atelectatic or nodule. Follow-up advised. Pleural thickening is also seen in the left upper lobe area anteriorly. * Patient received 60 mg IVP Lasix while in the ER * EKG showing sinus tachycardia * last echo from 03/2024 was reviewed and shown severely reduced LV systolic function with an estimated EF of 20-25%, grade 1 diastolic dysfunction. * She has an AICD in place * will continue Jardiance, carvedilol * patient has 3+ pitting edema to bilateral lower extremity, will Peter wrap for compression * elevate legs when sitting in the chair or in bed * strict I&O * daily weight, last recorded weight was on 08/2024 83.915 kg current 81.1KG * fluid restrict diet 1500 mL per day (2) Pleural effusion: Code(s): J90 - Pleural effusion, not elsewhere classified Status: Acute Assessment and Plan: * SEE ABOVE * encourage incentive spirometer * on IV Lasix resumed p.o. spironolactone * encouraged low-sodium diet (3) BREEZY (acute kidney injury): Code(s): N17.9 - Acute kidney failure, unspecified Status: Acute Assessment and Plan: * creatinine 1.70 POA>1.65 * baseline creatinine appears to be 1.2-1.5 * continue to trend monitor while in Lasix * Likely Stage 3 CKD (4) Hyperlipidemia: Code(s): E78.5 - Hyperlipidemia, unspecified Status: Chronic Assessment and Plan: * continue aspirin and atorvastatin (5) Breast cancer: Onset Date: ~11/2022 Code(s): C50.919 - Malignant neoplasm of unspecified site of unspecified female breast Status: Chronic Assessment and Plan: * continue anastrozole (6) Serum digoxin level below therapeutic range: Code(s): R78.89 - Finding of other specified substances, not normally found in blood Status: Acute Assessment and Plan: * Resumed Digoxin Plan Code status: DNR/DNI DVT prophylaxis: Jemmaqucarol Stress ulcer prophylaxis: NA PT/OT notes: Disposition: Patient admitted for CHF exacerbation with pleural effusions. Will continue with IV diuresis plan will be to return to assisted living facility when medically stable. Quality VTE Prophylaxis VTE prophylaxis: mechanical ordered and pharmacologic ordered Hospitalist MIPS Advance Care Plan I have confirmed that the patient's Advanced Care Plan is present, code status is documented, or surrogate decision maker is listed in patient medical record.: Yes Medication Reconciliation I have utilized all available resources to obtain, update and review the patients current medications (includes all prescriptions, OTC, herbals, cannabis, and nutritional supplements).: Yes The patient is not eligible for med reconciliation; the patient is in a emergent medical situation where delaying treatment would jeopardize the patients health.: No
[2024-10-31] MEDS: SACUBITRIL/VALSARTAN 24-26 MG TABLET 0.5 TAB PO ×2 (09:40→20:24)
[2024-10-31] MEDS: FUROSEMIDE INJ 20 MG/2 ML VIAL IV PUSH ×2 (09:40→17:55)
[2024-10-31] MEDS: DULoxetine HCL 30 MG CAPSULE.DR PO ×2 (09:41→17:54)
[2024-10-31] MEDS: APIXABAN 2.5 MG TABLET 5 MG BY MOUTH ×2 (09:41→17:54)
[2024-10-31] MEDS: ATORVASTATIN 10 MG TABLET PO (09:41)
[2024-10-31] MEDS: EMPAGLIFLOZIN 10 MG TABLET PO (09:41)
[2024-10-31] MEDS: DIGOXIN TAB 125 MCG TABLET PO (09:41)
[2024-10-31] MEDS: SPIRONOLACTONE 25 MG TABLET PO ×2 (09:41→17:54)
[2024-10-31] MEDS: ASPIRIN 81 MG ENTERIC TABLET PO (09:41)
[2024-10-31] MEDS: GABAPENTIN 300 MG CAPSULE 600 MG PO ×3 (09:41→17:55)
[2024-11-01] VITALS (7 sets, daily range): BP systolic 94–110; BP diastolic 61–72; PULSE 83–96; RESP 16–18; TEMP 36.2–36.7; O2SAT 94–98
[2024-11-01] MEDS: HYDROcodone/acetaminophen (*CRX) 5-325 MG TABLET 1 TAB PO ×2 (04:48→13:37)
[2024-11-01 06:49] LABS: Basophils Absolute Auto 0.05 K/mm3 (0.00-0.10); Basophils Percent Auto 0.6 % (0.0-1.0); Eosinophils Absolute Auto 0.27 K/mm3 (0.02-0.50); Eosinophils Percent Auto 3.3 % (1.0-6.0); Hematocrit 35.2 % (35.0-42.0); Hemoglobin 10.8 g/dL (11.7-13.8); Immature Granulocyte Absolute 0.04 K/mm3 (0.00-0.00); Immature Granulocyte Percent A 0.5 % (0.0-0.0); Lymphocytes Absolute Auto 0.62 K/mm3 (1.10-4.50); Lymphocytes Percent Auto 7.7 % (18.0-42.0); Mean Corpuscular HGB Conc 30.7 g/dL (32-36); Mean Corpuscular Hemoglobin 27.2 pg (27.0-31.0); Mean Corpuscular Volume 88.7 fL (78.0-102.0); Mean Platelet Volume 10.7 fl (9.2-11.8); Monocytes Percent Auto 9.9 % (2.0-11.0); Neutrophils Absolute Auto 6.28 K/mm3 (1.70-7.20); Platelet Count Result 223 K/mm3 (150-420); Red Blood Count 3.97 M/mm3 (4.20-5.40); Red Cell Distribution Width 23.4 % (11.6-14.4); White Blood Count 8.1 K/mm3 (4.8-10.8)
[2024-11-01 07:37] LABS: Alanine Aminotransferase 11 U/L (14-59); Albumin Level 2.9 g/dL (3.4-5.0); Alkaline Phosphatase 81 U/L (46-116); Anion Gap 11 mmol/L (4-12); Aspartate Amino Transferase 15 U/L (15-37); Bilirubin,Total 0.8 mg/dL (0.00-1.00); Blood Urea Nitrogen 43 mg/dL (7-18); Calcium 8.6 mg/dL (8.5-10.1); Carbon Dioxide 23 mmol/L (21-32); Chloride 99 mmol/L (98-108); Estimated CRCL calculation 27 ml/min; Estimated Glomerular Filt Rate 32; Glucose 86 mg/dL (70-99); Osmolality Calculated 285 mOsm/kg (285-295); Potassium 4.1 mmol/L (3.5-5.1); Sodium 133 mmol/L (136-145); Total Protein 6.4 g/dL (6.4-8.2)
[2024-11-01] MEDS: APIXABAN 2.5 MG TABLET 5 MG BY MOUTH ×2 (09:22→17:56)
[2024-11-01] MEDS: ASPIRIN 81 MG ENTERIC TABLET PO (09:22)
[2024-11-01] MEDS: SACUBITRIL/VALSARTAN 24-26 MG TABLET 0.5 TAB PO ×2 (09:22→21:04)
[2024-11-01] MEDS: GABAPENTIN 300 MG CAPSULE 600 MG PO ×3 (09:22→17:56)
[2024-11-01] MEDS: FUROSEMIDE INJ 20 MG/2 ML VIAL IV PUSH ×2 (09:22→17:56)
[2024-11-01] MEDS: EMPAGLIFLOZIN 10 MG TABLET PO (09:23)
[2024-11-01] MEDS: SPIRONOLACTONE 25 MG TABLET PO ×2 (09:23→17:56)
[2024-11-01] MEDS: ATORVASTATIN 10 MG TABLET PO (09:23)
[2024-11-01] MEDS: DIGOXIN TAB 125 MCG TABLET PO (09:23)
[2024-11-01] MEDS: DULoxetine HCL 30 MG CAPSULE.DR PO ×2 (09:23→17:56)
--- NOTE | 2024-11-01 12:00 | P.PNIM_ITS ---
Progress Note: A&P Assessment and Plan (1) Heart failure, chronic, with acute decompensation: Qualifiers: Heart failure type: systolic Qualified Code(s): I50.23 - Acute on chronic systolic (congestive) heart failure Code(s): I50.9 - Heart failure, unspecified Status: Acute Assessment and Plan: * chest CTshowing small pleural effusions cardiomegaly and Soft tissue density in the left apical area which may be atelectatic or nodule. Follow-up advised. Pleural thickening is also seen in the left upper lobe area anteriorly. * Patient received 60 mg IVP Lasix while in the ER * EKG showing sinus tachycardia * last echo from 03/2024 was reviewed and shown severely reduced LV systolic function with an estimated EF of 20-25%, grade 1 diastolic dysfunction. * She has an AICD in place * will continue Jardiance, carvedilol * patient has 3+ pitting edema to bilateral lower extremity, will Peter wrap for compression * elevate legs when sitting in the chair or in bed * strict I&O * daily weight, last recorded weight was on 08/2024 83.915 kg current 81.1KG * fluid restrict diet 1500 mL per day (2) Pleural effusion: Code(s): J90 - Pleural effusion, not elsewhere classified Status: Acute Assessment and Plan: * SEE ABOVE * encourage incentive spirometer * on IV Lasix resumed p.o. spironolactone * encouraged low-sodium diet (3) BREEZY (acute kidney injury): Code(s): N17.9 - Acute kidney failure, unspecified Status: Acute Assessment and Plan: * creatinine 1.70 POA>1.65 * baseline creatinine appears to be 1.2-1.5 * continue to trend monitor while in Lasix * Likely Stage 3 CKD (4) Hyperlipidemia: Code(s): E78.5 - Hyperlipidemia, unspecified Status: Chronic Assessment and Plan: * continue aspirin and atorvastatin (5) Breast cancer: Onset Date: ~11/2022 Code(s): C50.919 - Malignant neoplasm of unspecified site of unspecified female breast Status: Chronic Assessment and Plan: * continue anastrozole (6) Serum digoxin level below therapeutic range: Code(s): R78.89 - Finding of other specified substances, not normally found in blood Status: Acute Assessment and Plan: * Resumed Digoxin Plan Code status: DNR/DNI DVT prophylaxis: Eliquis Stress ulcer prophylaxis: NA PT/OT notes: Disposition: Patient admitted for CHF exacerbation with pleural effusions. Will continue with IV diuresis plan will be to return to assisted living facility when medically stable. Time Spent With Patient Time with patient: 15 - 25 minutes Subjective Date/time seen: 11/01/24 12:00 Interval history: Patient is an 84-year-old female who was admitted for further treatment of CHF exacerbation bilateral pleural effusions 11/01/24: patient is seen sitting on side of the bed shortness breaths improved but still not at her baseline. Bilateral lower extremity edema slightly improved as well nurses reported patient were Peter wraps a few hours yesterday reinforce the need to elevate BLE when at rest. Patient denied CP and having adequate urinary output. Review of Systems Review of Systems: All systems reviewed & are unremarkable except as noted in HPI and below Exam Narrative: Patient SOB and winded with general conversation Const: General: comfortable and no acute distress HENMT: Mouth: Yes moist mucous membranes Eyes: General: appearance normal, both eyes and all related structures Pupils: Equal, round and reactive pupils present Neck: Neck: supple and no JVD Resp: Auscultation: crackles bilateral in the mid lung butcher and in the lower lung butcher and diffuse Cardio: Rate: regular rate Rhythm: regular rhythm GI: Auscultation: normal bowel sounds Skin: General skin exam: normal color and no rashes or lesions noted Wounds: no wounds Neuro: Cranial nerves: Yes Equal, round and reactive pupils present Speech: normal speech Extrem: General: edema bilateral and pedal edema bilaterally Psych: Mental Status: mental status grossly normal Objective Data Vital Signs Vital Signs: Vital Signs - 24 hr 10/31/24 16:00 10/31/24 16:00 10/31/24 20:00 Temperature 96.8 F L Pulse Rate 88 96 97 Respiratory Rate 18 Blood Pressure 102/66 Pulse Oximetry 94 Oxygen Delivery Room Air 11/01/24 00:00 11/01/24 00:00 11/01/24 04:00 Temperature 98.1 F Pulse Rate 87 96 83 Respiratory Rate 16 Blood Pressure 106/61 Pulse Oximetry 98 Oxygen Delivery Room Air 11/01/24 08:00 11/01/24 08:00 11/01/24 09:23 Temperature 97.1 F L Pulse Rate 88 90 88 Respiratory Rate 18 Blood Pressure 94/72 L Pulse Oximetry 94 Oxygen Delivery Room Air Intake/Output Intake/Output: Intake & Output 10/29/24 10/30/24 10/31/24 11/01/24 23:59 23:59 23:59 23:59 Intake Total 50 1760 640 Balance 50 1760 640 Meds/Results Medications: Active Medications Generic Name Dose Route Start Last Admin Trade Name Freq PRN Reason Stop Dose Admin Acetaminophen 650 mg 10/31/24 08:02 Acetaminophen 325 Mg Tablet PO Q4H PRN Mild Pain (1-3) or Fever Hydrocodone Bitart/Acetaminophen 1 tab 10/31/24 07:58 11/01/24 04:48 Hydrocodone/Acetaminophen (*Crx) 5-325 Mg Tablet PO 1 tab Q8H PRN Administration Pain Rated 4-6 Apixaban 5 mg 10/31/24 09:00 11/01/24 09:22 Apixaban 2.5 Mg Tablet BY MOUTH 5 mg BID FRANCES Administration Aspirin 81 mg 10/31/24 09:00 11/01/24 09:22 Aspirin 81 Mg Enteric Tablet PO 81 mg QAM FRANCES Administration Atorvastatin Calcium 10 mg 10/31/24 09:00 11/01/24 09:23 Atorvastatin 10 Mg Tablet PO 10 mg DAILY FRANCES Administration Digoxin 125 mcg 10/31/24 09:00 11/01/24 09:23 Digoxin Tab 125 Mcg Tablet PO 125 mcg DAILY FRANCES Administration Duloxetine HCl 30 mg 10/31/24 09:00 11/01/24 09:23 Duloxetine Hcl 30 Mg Capsule.Dr PO 30 mg BID FRANCES Administration Empagliflozin 10 mg 10/31/24 09:00 11/01/24 09:23 Empagliflozin 10 Mg Tablet PO 10 mg DAILY FRANCES Administration Furosemide 20 mg 10/31/24 09:00 11/01/24 09:22 Furosemide Inj 20 Mg/2 Ml Vial IV PUSH 20 mg BID FRANCES Administration Gabapentin 600 mg 10/31/24 09:00 11/01/24 09:22 Gabapentin 300 Mg Capsule PO 600 mg TID FRANCES Administration Nitroglycerin 0.4 mg 10/30/24 19:19 Nitroglycerin Sl 0.4 Mg Tablet SUBLINGUAL Q5MIN PRN Chest Pain Ondansetron HCl 4 mg 10/31/24 08:02 Ondansetron Inj 4 Mg/2 Ml Vial IV PUSH Q6H PRN Nausea And Vomiting Sacubitril/Valsartan 0.5 tab 10/30/24 21:00 11/01/24 09:22 Sacubitril/Valsartan 24-26 Mg Tablet PO 0.5 tab Q12HR FRANCES Administration Spironolactone 25 mg 10/31/24 09:00 11/01/24 09:23 Spironolactone 25 Mg Tablet PO 25 mg BID FRANCES Administration Radiology Results: ITS Impressions Chest X-Ray 10/30/24 18:03 IMPRESSION: Bilateral basal atelectasis versus pneumonia with bilateral pleural effusion. Underlying pulmonary edema is not excluded. Chest CT 10/30/24 19:42 IMPRESSION: 1. Bilateral moderate to pleural effusion with adjacent atelectasis. 2. Soft tissue density in the left apical area which may be atelectatic or nodule. Follow-up advised. Pleural thickening is also seen in the left upper lobe area anteriorly. Follow-up advised. 3. Borderline left lymph nodes in the paratracheal and precarinal areas 4. Cardiomegaly Labs Labs: Laboratory Results - last 24 hr 11/01/24 05:50 WBC 8.1 RBC 3.97 L Hgb 10.8 L Hct 35.2 MCV 88.7 MCH 27.2 MCHC 30.7 L RDW 23.4 H Plt Count 223 MPV 10.7 Immature Gran % (Auto) 0.5 H Neut % (Auto) 78.0 H Lymph % (Auto) 7.7 L [place] % (Auto) 9.9 Eos % (Auto) 3.3 Baso % (Auto) 0.6 Lymph # (Auto) 0.62 L [place] # (Auto) 0.80 Eos # (Auto) 0.27 Baso # (Auto) 0.05 Abs Immat Gran (auto) 0.04 H Absolute Neuts (auto) 6.28 Absolute Nucleated RBC 0.00 Nucleated RBC % 0.0 Sodium 133 L Potassium 4.1 Chloride 99 Carbon Dioxide 23 Anion Gap 11 BUN 43 H Creatinine 1.55 H Estim Creat Clear Calc 27 Estimated GFR 32 L Glucose 86 Calculated Osmolality 285 Calcium 8.6 Total Bilirubin 0.8 AST 15 ALT 11 L Alkaline Phosphatase 81 Total Protein 6.4 Albumin 2.9 L Quality VTE Prophylaxis VTE prophylaxis: mechanical ordered and pharmacologic ordered -Patient's previous records reviewed on admission -ER notes reviewed in detail on admission -discussed all findings and current treatment plan with patient/Family/POA -Consultations reviewed for recommendations -Patient's disposition for safe discharge discussed with manager of case management Dictation performed by [employer] direct speech recognition software, therefore community service officer coordinator variants and typographical errors may occur. Hospitalist MIPS Advance Care Plan I have confirmed that the patient's Advanced Care Plan is present, code status is documented, or surrogate decision maker is listed in patient medical record.: Yes Medication Reconciliation I have utilized all available resources to obtain, update and review the patients current medications (includes all prescriptions, OTC, herbals, cannabis, and nutritional supplements).: Yes The patient is not eligible for med reconciliation; the patient is in a emergent medical situation where delaying treatment would jeopardize the patients health.: No
--- NOTE | 2024-11-01 15:47 | PC.NURSE ---
1408 patient changed to inpatient status
[2024-11-01] MEDS: ACETAMINOPHEN 325 MG TABLET 650 MG PO (21:05)
[2024-11-02] VITALS: BP 100/60; PULSE 86; PULSE 88; RESP 16; TEMP 36.9; O2SAT 96
[2024-11-02] MEDS: HYDROcodone/acetaminophen (*CRX) 5-325 MG TABLET 1 TAB PO (01:18)
[2024-11-02 04:00] VITALS: PULSE 86
[2024-11-02 05:57] LABS: Basophils Absolute Auto 0.04 K/mm3 (0.00-0.10); Basophils Percent Auto 0.6 % (0.0-1.0); Eosinophils Percent Auto 4.5 % (1.0-6.0); Hematocrit 36.3 % (35.0-42.0); Immature Granulocyte Absolute 0.02 K/mm3 (0.00-0.00); Immature Granulocyte Percent A 0.3 % (0.0-0.0); Lymphocytes Absolute Auto 0.59 K/mm3 (1.10-4.50); Lymphocytes Percent Auto 8.8 % (18.0-42.0); Mean Corpuscular HGB Conc 30.3 g/dL (32-36); Mean Corpuscular Volume 89.2 fL (78.0-102.0); Mean Platelet Volume 10.3 fl (9.2-11.8); Monocytes Absolute Auto 0.68 K/mm3 (0.10-0.90); Monocytes Percent Auto 10.1 % (2.0-11.0); Neutrophils Percent Auto 75.7 % (50.0-70.0); Platelet Count Result 251 K/mm3 (150-420); Red Blood Count 4.07 M/mm3 (4.20-5.40); Red Cell Distribution Width 23.3 % (11.6-14.4); White Blood Count 6.7 K/mm3 (4.8-10.8)
[2024-11-02 06:12] LABS: Alanine Aminotransferase 16 U/L (14-59); Albumin Level 2.8 g/dL (3.4-5.0); Alkaline Phosphatase 93 U/L (46-116); Anion Gap 9 mmol/L (4-12); Aspartate Amino Transferase 18 U/L (15-37); Bilirubin,Total 0.7 mg/dL (0.00-1.00); Blood Urea Nitrogen 43 mg/dL (7-18); Calcium 8.6 mg/dL (8.5-10.1); Carbon Dioxide 24 mmol/L (21-32); Chloride 102 mmol/L (98-108); Estimated CRCL calculation 27 ml/min; Estimated Glomerular Filt Rate 32; Glucose 90 mg/dL (70-99); Osmolality Calculated 290 mOsm/kg (285-295); Potassium 4.6 mmol/L (3.5-5.1); Sodium 135 mmol/L (136-145); Total Protein 6.4 g/dL (6.4-8.2)
[2024-11-02 08:00] VITALS: BP 95/64; PULSE 86; PULSE 90; RESP 18; TEMP 35.9; O2SAT 96
[2024-11-02 08:57] VITALS: PULSE 96
[2024-11-02] MEDS: DIGOXIN TAB 125 MCG TABLET PO (08:57)
[2024-11-02] MEDS: ASPIRIN 81 MG ENTERIC TABLET PO (08:57)
[2024-11-02] MEDS: SACUBITRIL/VALSARTAN 24-26 MG TABLET 0.5 TAB PO (08:57)
[2024-11-02] MEDS: EMPAGLIFLOZIN 10 MG TABLET PO (08:57)
[2024-11-02] MEDS: DULoxetine HCL 30 MG CAPSULE.DR PO ×2 (08:57→17:53)
[2024-11-02] MEDS: FUROSEMIDE 40 MG TABLET PO ×2 (08:57→17:53)
[2024-11-02] MEDS: GABAPENTIN 300 MG CAPSULE 600 MG PO ×3 (08:58→17:53)
[2024-11-02] MEDS: ATORVASTATIN 10 MG TABLET PO (08:58)
[2024-11-02] MEDS: APIXABAN 2.5 MG TABLET 5 MG BY MOUTH ×2 (08:58→17:53)
[2024-11-02] MEDS: SPIRONOLACTONE 25 MG TABLET PO ×2 (08:58→17:53)
--- NOTE | 2024-11-02 09:38 | P.DS_ITS ---
DS: Admitting Diagnosis Discharge Date 11/02/2024 Admitting Diagnosis Congestive heart failure exacerbation/ pleural effusions DS: Discharge Diagnosis Discharge Diagnosis (1) Heart failure, chronic, with acute decompensation: Qualifiers: Heart failure type: systolic Qualified Code(s): I50.23 - Acute on chronic systolic (congestive) heart failure Code(s): I50.9 - Heart failure, unspecified Status: Acute (2) Pleural effusion: Code(s): J90 - Pleural effusion, not elsewhere classified Status: Acute (3) BREEZY (acute kidney injury): Code(s): N17.9 - Acute kidney failure, unspecified Status: Acute (4) Hyperlipidemia: Code(s): E78.5 - Hyperlipidemia, unspecified Status: Chronic (5) Breast cancer: Onset Date: ~11/2022 Code(s): C50.919 - Malignant neoplasm of unspecified site of unspecified female breast Status: Chronic (6) Serum digoxin level below therapeutic range: Code(s): R78.89 - Finding of other specified substances, not normally found in blood Status: Acute Plan Disposition: Discharged to assisted living DS: Summary Hospital Course Reason for hospitalization: congestive heart exacerbation/ pleural effusions/ acute on chronic renal failure Hospital Course: Patient is a 84-year-old female with a significant past medical history of CKD, breast cancer, coronary artery disease, CHF with reduced ejection fraction 20%, cardiac defibrillator, osteoarthritis presents to the hospital with shortness of breath /dyspnea and hypotension. Per patient and family patient was having low blood pressures at the assisted living facility and staff requested she seek medical attention. patient had recent hospitalization in August of this year for CHF exacerbation. She denies any fever, chills, nausea, vomiting, diarrhea, abdominal pain, chest pain. She is SOB with talking and exertion, reports leg swelling. Workup in the hospital included a chest x-ray which showed a small pleural effusion a CT chest was performed that showed bilateral moderate pleural effusions and a soft tissue density in the left apical area still present from previous CXR 08/2024. Labs unremarkable except for elevated BNP of >00685 initially patient was treated for suspicion of pneumonia and CHF exacerbation she was started on IV azithromycin and cefepime as well as given IV Lasix in the emergency department. Patient was admitted to the medical unit for further evaluation and treatment of CHF exacerbation with pleural effusions. patient had normal WBCs and it remained afebrile on room air was less suspicious for any type pneumonias and she was just recently treated so discontinued antibiotic therapy. patient continues admission while receiving IV Lasix b.i.d. patient overall to shortness of breath at rest and with exertion lower extremity edema had improved. Patient was instructed to continue a low-sodium fluid restriction at discharge as well as to elevate her lower extremities in Peter wrap as tolerated. Patient seen and assessed at time of discharge in no acute distress denied any chest pain improvement to shortness a breath denied any nausea or vomiting or abdominal pain. Transition patient back over to her oral Lasix and she was discharged back to her assisted living facility. Status at Discharge Functional status at discharge: uses cane/walker Overall status at discharge: patient is back to baseline Time Spent with Patient Time attestation: Total time spent providing and/or coordinating discharge services: Time spent: Greater than 30 minutes Exam Const: General: comfortable and no acute distress HENMT: Mouth: Yes moist mucous membranes Eyes: General: appearance normal, both eyes and all related structures Pupils: Equal, round and reactive pupils present Neck: Neck: supple and no JVD Resp: Auscultation: crackles bilateral in the mid lung butcher and in the lower lung butcher and diffuse Cardio: Rate: regular rate Rhythm: regular rhythm GI: Auscultation: normal bowel sounds Skin: General skin exam: normal color and no rashes or lesions noted Wounds: no wounds Neuro: Cranial nerves: Yes Equal, round and reactive pupils present Speech: normal speech Extrem: General: edema bilateral and pedal edema bilaterally Psych: Mental Status: mental status grossly normal DS: Data Data Completed and Pending Labs on day of discharge: Labs from last 24 hours 11/02/24 05:26 WBC 6.7 RBC 4.07 L Hgb 11.0 L Hct 36.3 MCV 89.2 MCH 27.0 MCHC 30.3 L RDW 23.3 H Plt Count 251 MPV 10.3 Immature Gran % (Auto) 0.3 H Neut % (Auto) 75.7 H Lymph % (Auto) 8.8 L Porter % (Auto) 10.1 Eos % (Auto) 4.5 Baso % (Auto) 0.6 Lymph # (Auto) 0.59 L Porter # (Auto) 0.68 Eos # (Auto) 0.30 Baso # (Auto) 0.04 Abs Immat Gran (auto) 0.02 H Absolute Neuts (auto) 5.10 Absolute Nucleated RBC 0.00 Nucleated RBC % 0.0 Sodium 135 L Potassium 4.6 Chloride 102 Carbon Dioxide 24 Anion Gap 9 BUN 43 H Creatinine 1.55 H Estim Creat Clear Calc 27 Estimated GFR 32 L Glucose 90 Calculated Osmolality 290 Calcium 8.6 Total Bilirubin 0.7 AST 18 ALT 16 Alkaline Phosphatase 93 Total Protein 6.4 Albumin 2.8 L Imaging Radiologist's impression: Chest X-Ray 10/30/24 18:03 IMPRESSION: Bilateral basal atelectasis versus pneumonia with bilateral pleural effusion. Underlying pulmonary edema is not excluded. Chest CT 10/30/24 19:42 IMPRESSION: 1. Bilateral moderate to pleural effusion with adjacent atelectasis. 2. Soft tissue density in the left apical area which may be atelectatic or nodule. Follow-up advised. Pleural thickening is also seen in the left upper lobe area anteriorly. Follow-up advised. 3. Borderline left lymph nodes in the paratracheal and precarinal areas 4. Cardiomegaly Discharge Plan Discharge Attending physician on discharge: William Joshi Consulting providers: Judy Peña Discharging Clinician: Judy Peña Anticipated Discharge Date/Time: 11/02/24 09:33 Patient Disposition: NH Alf/Asst Living Activity: may shower and as tolerated Diet: heart healthy and low sodium Discharge Instructions: CHF Exacerbation * Encourage a heart healthy low sodium diet * fluid restriction of 1500ML * Continue with oral Lasix and Entresto as prescribed * elevate lower extremities when at rest * Wrap lower extremities with Peter wraps as tolerated * Monitor weight How can you care for yourself at home? ? Keep track of any new symptoms or changes in your symptoms. ? Rest until you feel better. ? Be safe with medicines. Take your medicines exactly as prescribed. Call your doctor if you think you are having a problem with your medicine. ? Do not drive after taking a prescription pain medicine. ? Ensure to follow-up with primary care physician as indicated and provide updated medication list provided to you at discharge. When should you call for help? Call 911 anytime you think you may need emergency care. For example, call if: ? You passed out (lost consciousness). Call your doctor now or seek immediate medical care if: ? You have new symptoms like fever, difficulty breathing, Chest pain, vomiting, or rash. ? You have new or different pain. ? You are confused and are having trouble thinking clearly. ? Your symptoms are getting worse. Watch closely for changes in your health, and be sure to contact your doctor if: ? You do not get better as expected. Patient Instructions: Antibiotic Form Patient Language: Kinyarwanda Stand Alone Forms: General Discharge Information Follow-up/Referrals: Gino Meyer MD [Primary Care Provider] - 2 weeks Discharge Medications: Continued atorvastatin 10 mg Tablet 10 mg PO DAILY spironolactone 25 mg Tablet 25 mg PO BID Rx Instructions: Morning and noon montelukast 10 mg Tablet 10 mg PO DAILY aspirin 81 mg Tablet 81 mg PO DAILY Entresto 24-26 mg tablet 1 tablet PO BID Jardiance 10 mg tablet 10 mg PO DAILY furosemide 40 mg Tablet 40 mg PO BID Qty: 60 0RF duloxetine 30 mg capsule, delayed rel sprinkle 30 mg PO BID Eliquis 5 mg tablet 5 mg PO BID anastrozole 1 mg tablet 1 mg PO DAILY hydrocodone-acetaminophen 5-325 mg tablet 1 tablet PO Q8H PRN (Reason: pain) acetaminophen [Tylenol Arthritis Pain] 650 mg tablet extended release 650 mg PO Q8H PRN (Reason: pain) metolazone 2.5 mg tablet 2.5 mg PO DAILY nitroglycerin 0.4 mg tablet, sublingual 0.4 mg sublingual ONCE digoxin 125 mcg (0.125 mg) tablet 0.125 mg PO DAILY Centrum Complete 18-400 mg-mcg tablet 1 tablet PO DAILY gabapentin 100 mg capsule 300 mg PO BID carvedilol [Coreg] 12.5 mg Tablet 12.5 mg PO Q12HR Qty: 90 0RF Date of admission: 11/01/24 14:08 Primary Care Provider: Gino Meyer Admitting Provider: William Joshi Attending physician on admission: William Joshi Condition: Stable Quality VTE Prophylaxis VTE prophylaxis: mechanical ordered and pharmacologic ordered -Patient's previous records reviewed on admission -ER notes reviewed in detail on admission -discussed all findings and current treatment plan with patient/Family/POA -Consultations reviewed for recommendations -Patient's disposition for safe discharge discussed with adult protective caseworker Dictation performed by [employer] direct speech recognition software, therefore customs import specialist variants and typographical errors may occur. Hospitalist MIPS Heart Failure (Exclusion) Patient has history of Heart Transplant or Left Ventricular Assistive Device?: No IF YES, STOP HERE Heart Failure (Qualifier) Patient has current or prior documentation of LVEF less than or equal to 40%, or mod/servere depressed LVSF?: No IF NO, STOP HERE
[2024-11-02 12:00] VITALS: PULSE 81
[2024-11-02 16:00] VITALS: BP 91/67; PULSE 86; PULSE 87; RESP 18; TEMP 35.9; O2SAT 96
--- NOTE | 2024-11-02 18:35 | PC.NURSE ---
Discharge instructions reviewed with patient and son. Patient taken off floor per wheelchair
--- NOTE | 2024-11-03 08:54 | PC.NURSE ---
Called left with Jennifer for Call back.
--- NOTE | 2024-11-05 09:30 | PC.NURSE ---
Spoke with Jennifer, she states, yes, I think I understood all the instructions. No to having any questions.
== END 2024-11-02 18:40 | DRG 292 ==
LOC: CHSED 18:54 → CHS2ND 19:23
PROVIDERS: Nurse Practitioner Family; Admitting Provider Internal Medicine; Emergency Provider Preventive Medicine Aerospace Medicine; PCP Internal Medicine; Visit Provider Internal Medicine
DX: I50.23 Acute on chronic systolic (congestive) heart failure (principal); I42.8 Other cardiomyopathies; N17.9 Acute kidney failure, unspecified; E78.5 Hyperlipidemia, unspecified; N18.9 Chronic kidney disease, unspecified; M16.9 Osteoarthritis of hip, unspecified; M47.816 Spondylosis without myelopathy or radiculopathy, lumbar region; I25.10 Atherosclerotic heart disease of native coronary artery without angina pectoris; Z85.3 Personal history of malignant neoplasm of breast; Z95.810 Presence of automatic (implantable) cardiac defibrillator; Z79.82 Long term (current) use of aspirin; Z79.01 Long term (current) use of anticoagulants
CPT/HCPCS: 36415; 71045; 71250; 80048; 80053; 80162; 82948; 83735; 83880; 84484; 85025; 85380; 93005; 96365; 96367; 96375; 99285; A9270; G0378; J0692; J0696; J1940

== ENCOUNTER 2024-11-12 12:03 | Outpatient (NON) | payer MEDICARE, SELFPAY ==
[2024-11-12 12:47] LABS: Alanine Aminotransferase 10 U/L (14-59); Albumin Level 3.2 g/dL (3.4-5.0); Alkaline Phosphatase 108 U/L (46-116); Anion Gap 4 mmol/L (4-12); Aspartate Amino Transferase 22 U/L (15-37); Bilirubin,Total 1.1 mg/dL (0.00-1.00); Blood Urea Nitrogen 23 mg/dL (7-18); Calcium 9.4 mg/dL (8.5-10.1); Carbon Dioxide 33 mmol/L (21-32); Chloride 98 mmol/L (98-108); Digoxin 1.3 ng/mL (0.9-2.0); Estimated Glomerular Filt Rate 38; Glucose 131 mg/dL (70-99); NT Pro B Type Natriuretic Pept 8128 pg/mL (0-450); Osmolality Calculated 285 mOsm/kg (285-295); Potassium 4.4 mmol/L (3.5-5.1); Sodium 135 mmol/L (136-145); Total Protein 7.2 g/dL (6.4-8.2)
--- OUTSIDE RECORDS SUMMARY | 2024-11-12 13:04 | XMS_ITS | Encounter Summary ---
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 Legal Sex Female 10:21 PM CDT [...] 12/07/2024 1:15 AM CDT Allied Health/Nurse Visit [facility] [address] [place] [address] Christel Lu MD [address] [place] [address] 12/21/2024 2:30 PM CDT Office Visit [facility] [address] [place] [address] Maciel Wang, PATanishaC [address] [place] [address] 12/21/2024 2:30 PM CDT Allied Health/Nurse Visit [facility] [address] [place] [address] Christel Lu MD [address] [place] [address] 03/29/2025 1:00 PM CDT Office Visit [facility] [place] [address] Stella Llanos MD [address] [place] [address] documented as of this encounter Goals Goal Patient Goal Type Associated Problems Recent Progress Patient-Stated? Author Safety Patient/family will have appropriate support at home upon discharge Lifestyle No Merissa Santiago RN Safety Patient/family will have appropriate support at home upon discharge Lifestyle No Elina Lambert, RN documented as of this encounter Visit Diagnoses Not on filedocumented in this encounter Care Teams Specialty Transformer Assembler Relationship Specialty Start Date End Date Gino Meyer MD [address] [place] [address] PCP - General INTERNAL MEDICINE 06/11/17 Christel Lu MD [address] [place] [address] EP Radiology Therapist CLINICAL CARDIAC ELECTROPHYSIOLOGY 06/12/23 Stella Llanos MD [address] [place] [address] [place] Radiology Therapist CARDIOVASCULAR DISEASE 10/16/24 documented as of this encounter
--- OUTSIDE RECORDS SUMMARY | 2024-11-12 13:04 | XMS_ITS | Encounter Summary ---
Author Organization [facility] Address [address] [place] [address] Care Team Providers Care Manager Energy Name Role Phone Toy Warren MD Primary Care Provider [phone] Santos Fuentes MD Unavailable Unavailabl e Gino Meyer MD Primary Care Provider [phone] Shana Adams NP Unavailable Unavailable Christel Lu MD Unavailable Stella Llanos MD Unavailable Encounter Details Date Type Department Care Team (Late st Contact Info) Description 01/31/2017 Abstract [facility] [address] [place] [address] Santos Fuentes MD Social History Tobacco Use Types Packs/Day Years Used Date Smoking Tobacco: Never Alcohol Use Standard Drinks/Week Comments No 0 (1 standard drink = 0.6 oz pur e alcohol) Comments Unknown Sex and Gender Information Value Date Recorded Sex Assigned at Female 09/01/2024 10:13 AM 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 Legal Sex Female 10:21 PM CDT Gender Identity Not on file Sexual Orientation Not on file Occupation Industry Job Start Date Job End Date retired Not on file Not on file Not on file documented as of this encounter Plan of Treatment Upcoming Encounters Date Type Department Care Team (Late st Contact Info) Description 12/07/2024 1:15 AM CDT Allied Health/Nurse Visit [facility] [address] [place] [address] Christel Lu MD [address] [place] [address] 12/21/2024 2:30 PM CDT Office Visit [facility] [address] [place] [address] Maciel Wang PATanishaC [address] [place] [address] 12/21/2024 2:30 PM CDT Allied Health/Nurse Visit [facility] [address] [place] [address] Christel Lu MD [address] [place] [address] 03/29/2025 1:00 PM CDT Office Visit [facility] [place] [address] Stella Llanos MD [address] [place] [address] documented as of this encounter Visit Diagnoses Not on filedocumented in this encounter Additional Health Concerns Infection Onset Date Last Indicated Resolved Time COVID-19 Rule Out 04/24/2022 04/24/2022 04/24/2022 4:06 AM CDT documented as of this encounter Care Teams Manager Energy Relationship Specialty Start Date End Date Toy Warren MD [address] [place] [address] PCP - General INTERNAL MEDICINE 02/06/17 06/10/17 Gino Meyer MD [address] [place] [address] PCP - General INTERNAL MEDICINE 06/11/17 Santos Fuentes MD [address] [place] [address] [place] Data Technical Lead CARDIOVASCULAR DISEASE 02/06/17 08/31/24 Shana Adams NP [address] [place] [address] Referring Physician Nurse Practitioner [facility] 02/27/23 Christel Lu MD [address] [place] [address] EP Data Technical Lead CLINICAL CARDIAC ELECTROPHYSIOLOGY 06/12/23 Stella Llanos MD [address] [place] [address] [place] Data Technical Lead CARDIOVASCULAR DISEASE 10/16/24 documented as of this encounter
--- OUTSIDE RECORDS SUMMARY | 2024-11-12 13:04 | XMS_ITS | Encounter Summary ---
Author Organization [facility] Address [address] [place] [address] Care Team Providers Care Director Print Name Role Phone Toy Warren MD Primary Care Provider [phone] Santos Fuentes MD Unavailable Unavailabl e Gino Meyer MD Primary Care Provider [phone] Shana Adams NP Unavailable Unavailable Christel Lu MD Unavailable Stella Llanos MD Unavailable Encounter Details Date Type Department Care Team (Late st Contact Info) Description 03/06/2017 Abstract [facility] [address] [place] [address] Santos Fuentes MD Social History Tobacco Use Types Packs/Day Years Used Date Smoking Tobacco: Never Alcohol Use Standard Drinks/Week Comments No 0 (1 standard drink = 0.6 oz pur e alcohol) Comments Unknown Sex and Gender Information Value Date Recorded Sex Assigned at Female 09/01/2024 10:13 AM CUPOLA MAN Legal Sex Female 10:21 PM CDT [...] AM CDT Allied Health/Nurse Visit [facility] [address] [place] [address] Christel Lu MD [address] [place] [address] 12/21/2024 2:30 PM CDT Office Visit [facility] [address] [place] [address] Maciel Wang PATanishaC [address] [place] [address] 12/21/2024 2:30 PM CDT Allied Health/Nurse Visit [facility] [address] [place] [address] Christel Lu MD [address] [place] [address] 03/29/2025 1:00 PM CDT Office Visit [facility] [place] [address] Stella Llanos MD [address] [place] [address] documented as of this encounter Visit Diagnoses Not on filedocumented in this encounter Additional Health Concerns Infection Onset Date Last Indicated Resolved Time COVID-19 Rule Out 04/24/2022 04/24/2022 04/24/2022 4:06 AM CDT documented as of this encounter Care Teams Director Print Relationship Specialty Start Date End Date Toy Warren MD [address] [place] [address] PCP - General INTERNAL MEDICINE 02/06/17 06/10/17 Gino Meyer MD [address] [place] [phone] PCP - General INTERNAL MEDICINE 06/11/17 Santos Fuentes MD [address] [place] [address] [place] Shelving Supervisor CARDIOVASCULAR DISEASE 02/06/17 08/31/24 Shana Adams NP [address] [place] [address] Referring Physician Nurse Practitioner [facility] 02/27/23 Christel Lu MD [address] [place] [address] EP Shelving Supervisor CLINICAL CARDIAC ELECTROPHYSIOLOGY 06/12/23 Stella Llanos MD [address] [place] [address] [place] Shelving Supervisor CARDIOVASCULAR DISEASE 10/16/24 documented as of this encounter
--- OUTSIDE RECORDS SUMMARY | 2024-11-12 13:04 | XMS_ITS | Encounter Summary ---
Author Organization [facility] Address [address] [place] [address] Care Team Providers Care License Distributor Name Role Phone Santos Fuentes MD Unavailable Unavailabl e Gino Meyer MD Primary Care Provider [phone] Shana Adams NP Unavailable Unavailable Christel Lu MD Unavailable Stella Llanos MD Unavailable Encounter Details Date Type Department Care Team (Late st Contact Info) Description 02/15/2021 Abstract [facility] [address] [place] [address] Santos Fuentes MD Social History Tobacco Use Types Packs/Day Years Used Date Smoking Tobacco: Never Smokeless Tobacco: Never Alcohol Use Standard Drinks/Week Comments No 0 (1 standard drink = 0.6 oz pur e alcohol) Comments Unknown Sex and Gender Information Value Date Recorded Sex Assigned at Female 09/01/2024 10:13 AM 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 Legal Sex Female 10:21 PM CDT Gender [...] 1:15 AM CDT Allied Health/Nurse Visit [facility] [address] [place] [address] Christel Lu MD [address] [place] [address] 12/21/2024 2:30 PM CDT Office Visit [facility] [address] [place] [address] Macile Wang, PA-C [address] [place] [address] 12/21/2024 2:30 PM CDT Allied Health/Nurse Visit [facility] [address] [place] [address] Christel uL MD [address] [place] [address] 03/29/2025 1:00 PM CDT Office Visit [facility] [address] Stella Llanos MD [address] [place] [address] documented as of this encounter [...] documented as of this encounter Care Teams License Distributor Relationship Specialty Start Date End Date Gino Meyer MD [address] [place] [address] PCP - General INTERNAL MEDICINE 06/11/17 Santos Fuentes MD [place] Claim Taker CARDIOVASCULAR DISEASE 02/06/17 08/31/24 Shana Adams NP [address] [place] [address] Referring Physician Nurse Practitioner Family 02/27/23 Christel Lu MD [address] [place] [address] EP Claim Taker CLINICAL CARDIAC ELECTROPHYSIOLOGY 06/12/23 Stella Llanos MD [address] [place] [address] [place] Claim Taker CARDIOVASCULAR DISEASE 10/16/24 documented as of this encounter
--- OUTSIDE RECORDS SUMMARY | 2024-11-12 13:04 | XMS_ITS | Clinical Summary ---
Author Organization [facility] Address [address] [place] [address] Care Team Providers Care Discharge Coordinator Name Role Phone Gino Meyer MD Primary Care Provider [phone] Christel Lu MD Unavailable Toro Freire MD [...] carvedilol (COREG) 12.5 MG tabletIndication s:Atrial fibrillation ([facility]) TAKE ONE TABLET BY MOUTH TWICE A DAY 60 tablet 3 5 Active Active Problems Problem Noted Date Diagnosed Date Breast cancer ([facility]) 07/23/2023 S/P coronary artery stent placement 03/18/2021 Mixed hyperlipidemia 07/10/2017 Stage 2 chronic kidney disease 06/14/2014 Non-ischemic cardiomyopathy ([facility]) AICD (automatic cardioverter/defibrillator) pres ent Hypertension Coronary artery disease Systolic heart failure ([facility]) Resolved Problems Problem Noted Date Diagnosed Date Resolved Date Hypotension due to hypovolemia 04/25/2022 06/13/2023 Obesity (BMI 30-39.9) 07/10/20172021 Encounters Date Type Department Care Team Description 11/05/2024 Telephone [facility] ie [address] [place] [address] Toro Freire MD Results 10/29/2024 3:30 PM CDT - 10/29/2024 11:59 PM CDT Hospital Encounter [facility] [address] [place] [address] Toro Freire MD Discharge Disposition: Home or Self Care (Routine Discharge) 10/29/2024 Travel 10/16/2024 Telephone [facility] [address] [place] [address] Toro Freire MD Schedule Test 10/12/2024 3:45 PM CENTER MACHINE SET UP OPERATOR Office Visit [facility] [address] [place] [address] Toro Freire MD 10/12/2024 2:59 PM CENTER MACHINE SET UP OPERATOR - 10/12/2024 11:59 PM CENTER MACHINE SET UP OPERATOR Hospital Encounter [facility] [address] [place] [address] Toro Freire MD Discharge Disposition: Home or Self Care (Routine Discharge) 10/12/2024 Travel 10/08/2024 Orders Only [facility] [address] [place] [address] Toro Freire MD 10/07/2024 Telephone [facility] [address] [place] [phone] Toro Freire MD Appointment Reminder 10/02/2024 Telephone [facility] [address] [place] [phone] Jaida Yee, JAYDEN, GERMAN PROFESSOR-C Lab Results; Lab Order 09/30/2024 Scan [facility] [address] [place] [address] Scanned, Doc Pccl 09/30/2024 Telephone [facility] [address] [place] [phone] Christel Lu MD Appointment Request 09/24/2024 Telephone [facility] [address] [place] [phone] Jaida Yee APRN, GERMAN PROFESSOR-C Follow Up Call 09/24/2024 Orders Only [facility] [address] [place] [phone] Heidy Landers LPN 09/22/2024 Abstract [facility] [address] [place] [phone] Jaida Yee APRN, GERMAN PROFESSOR-C 09/22/2024 Telephone [facility] [address] [place] [phone] Jaida Yee APRN, GERMAN PROFESSOR-C Other 09/16/2024 10:39 AM CENTER MACHINE SET UP OPERATOR - 09/16/2024 11:59 PM CENTER MACHINE SET UP OPERATOR Hospital Encounter [facility] [address] [place] [address] Barbi Day, CLINICAL APPLICATIONS MANAGER Discharge Disposition: Home or Self Care (Routine Discharge) 09/16/2024 Travel 09/16/2024 Telephone [facility] [address] [place] [address] Jaida Yee, JAYDEN, GERMAN PROFESSOR-C Question 09/10/2024 Telephone [facility] [address] [place] [address] Jaida Yee, JAYDEN, GERMAN PROFESSOR-C Follow Up Call 09/10/2024 Abstract [facility] [address] [place] [address] Abstract, Doc Pccl 09/08/2024 11:00 AM CENTER MACHINE SET UP OPERATOR Office [facility] [address] [place] [address] Jaida Yee APRN, GERMAN PROFESSOR-C Follow Up; CHF 09/08/2024 Telephone [facility] [address] [place] [address] Toro Freire MD Appointment Request 09/08/2024 Telephone [facility] [address] [place] [address] Jaida Yee APRN, GERMAN PROFESSOR-C Referral 09/08/2024 Travel 09/01/2024 11:15 AM CENTER MACHINE SET UP OPERATOR Allied Health/Nurse [facility] [address] [place] [address] Christel Lu MD 09/01/2024 11:15 AM CENTER MACHINE SET UP OPERATOR Office [facility] [address] [place] [address] Christel Lu MD Follow Up; Cardiac Device Management; Atrial Fibrillation 09/01/2024 Orders Only [facility] [address] [place] [address] Jaida Yee, JAYDEN, GERMAN PROFESSOR-C 09/01/2024 Telephone [facility] [address] [place] [address] Jaida Yee, JAYDEN, GERMAN PROFESSOR-C Appointment Request 09/01/2024 Travel 08/31/2024 Scan [facility] [address] [place] [address] Scanned, Doc Pccl 08/31/2024 Orders Only [facility] [address] [place] [address] Christel Lu MD 08/31/2024 Telephone [facility] [address] [place] [address] Christel Lu MD Record Request 08/30/2024 Scan [facility] [address] [place] [address] Scanned, Doc Pccl 08/28/2024 Scan [facility] [address] [place] [address] Scanned, Doc Pccl Image (SCAN) 08/28/2024 Scan [facility] [address] [place] [address] Scanned, Doc Pccl ECG (SCAN) 08/28/2024 Scan [facility] [address] [place] [address] Scanned, Doc Pccl 08/28/2024 Telephone [facility] [address] [place] [address] Christel Lu MD Record Request 08/25/2024 Telephone [facility] [address] [place] [address] Christel Lu MD Reschedule 08/20/2024 Orders Only [facility] [address] [place] [address] Christel Lu MD from Last 3 Months Immunizations Name [...] place to sleep or slept in a [place] facility (including now)? Yes 11/29/2022 Comments No Sex and Gender Information Value Date Recorded Sex Assigned at Female 09/01/2024 10:13 AM CENTER MACHINE SET UP OPERATOR Legal Sex Female 10:21 PM CDT Gender Identity Not on file Sexual Orientation Not on file Occupation Industry Job Start Date Job End Date retired Not on file Not on file Not on file Last Filed Vital Signs Vital Sign Reading Time Taken Comments Blood Pressure 110/60 10/12/2024 2:53 PM CENTER MACHINE SET UP OPERATOR Pulse 105 10/12/2024 2:53 PM CENTER MACHINE SET UP OPERATOR Temperature 36.8 C (98.2 F) 08/30/2023 12:39 PM CENTER MACHINE SET UP OPERATOR Respiratory Rate 16 10/12/2024 2:53 PM CENTER MACHINE SET UP OPERATOR Oxygen Saturation 100% 10/12/2024 2:53 PM CENTER MACHINE SET UP OPERATOR Inhaled Oxygen Concentration - - Weight 80.7 kg (178 lb) 10/12/2024 2:53 PM CENTER MACHINE SET UP OPERATOR Height 152.4 cm (5') 10/12/2024 2:53 PM CENTER MACHINE SET UP OPERATOR Body Mass Index 34.76 10/12/2024 2:53 PM CENTER MACHINE SET UP OPERATOR Plan of Treatment Upcoming Encounters Date Type Department Care Team (Late st Contact Info) Description 12/07/2024 1:15 AM CDT Allied Health/Nurse Visit [facility] [address] [place] [address] Christel Lu MD [address] [place] [phone] 12/21/2024 2:30 PM CDT Office Visit [facility] [address] [place] [address] Maciel Wang PA-C [address] [place] [address] 12/21/2024 2:30 PM CDT Allied Health/Nurse Visit [facility] [address] [place] [address] Christel Lu MD [address] [place] [address] 03/29/2025 1:00 PM CDT Office Visit [facility] [place] [address] Toro Freire MD [address] [place], [place] [address] Health Maintenance Due Date Last Done Comments [...] Lambert RN Medical Devices Implanted Type Area Barley Steeper Device Identifier Shelf Expiration Date Model / Serial / Lot [employer] Vigilant El Dr-08/30/2023 Implanted:Qty: 1 on 08/30/2023 by Christel Lu MD ICD [employer] 12/28/2024 [id number] / [id number] / Description:DX: NICM MRI Conditional under following conditions: Static magnetic field of 1.5 T or 3 T, Max spatial gradient field of 5000 Gauss/cm or less, Max slew rate 200 T/m/s , WHOLE BODY TERESO OF 2 W/KG OR LESS, HEAD TERESO 3.2 W/KG OR LESS , Supine or Prone only [employer] Ra-08/30/2023 Implanted:Qty: 1 on 08/30/2023 by Christel Lu MD Lead Implant [employer] 01/04/2025 [id number] / [id number] / [employer] Rv-08/30/2023 Implanted:Qty: 1 on 08/30/2023 by Christel Lu MD Lead Implant [employer] 04/08/2024 [id number] / [id number] / Cv Synergy Xd Jose-Lad- 021 Implanted:02/18 by Russell Bentley MD (Quantity not on file) Stent Coronary LAD [employer] 10/05/2022 [id number] / / [id number] Cv [employer] Xd Jose-Roby-2020 Implanted:02/18 by Russell Bentley MD (Quantity not on file) Stent Coronary LAD [employer] 11/17/2022 [id number] / / [id number] Procedures Procedure Name Priority Date/Time Associated Diagnosis Comments USE ECHOCARDIOGRAM Routine 10/29/2024 4: 28 PM CDT CHF (congestive heart failure) ([facility]) ECG 12-LEAD Routine 10/12/2024 3:21 PM CENTER MACHINE SET UP OPERATOR Non-ischemic cardiomyopathy (CMS/HCC HHS/HCC) BASIC METABOLIC PANEL Routine 09/24/2024 assisted use of drug BASIC METABOLIC PANEL Routine 09/18/2024 medical terminologist use of drug BASIC METABOLIC PANEL Routine 09/09/2024 ELECTROCARDIOGRAM (NON MIDMARK ACQUIRED) Routine 09/01/2024 10:27 AM CENTER MACHINE SET UP OPERATOR Atrial fibrillation, unspecified type (CMS/HCC HHS/HCC) AICD (automatic cardioverter/defibri llator) present COMPREHENSIVE METABOLIC PANEL Routine 08/31/2024 CBC, MANUAL DIFF Routine 08/31/2024 ECG GENERIC (SCAN ORDER) Routine 025 12:00 AM CENTER MACHINE SET UP OPERATOR IMAGE GENERIC Routine 08/28/2024 12:00 AM CENTER MACHINE SET UP OPERATOR LIPID PANEL Routine 03/27/2021 10:35 AM CDT medical terminologist use of drug Hyperlipidemia, unspecified hyperlipidemia type from Last 3 Months or Most Recently Relevant to Health Maintenance Results * USE ECHOCARDIOGRAM (10/29/2024 4:28 PM CDT) Anatomical Region Laterality Modality Cardiac Ultrasound 10/29/2024 3:46 PM CDT Narrative 11/01/2024 11:27 PM CDT Echocardiography Report Pat.Name: Jennifer Coates Pat.ID: [id number] St.Date: 10/29/2024 Refer.MD: Shandra, [facility] Exam Time: 3:46:00 PM Study Type:SHANDRA Height: 60 in Weight: 177 lb BSA: 1.77 m2 Age: 9 1940,84Y Sex: F Sonogrphr: Sf Pat. Stat.:Outpatient Reason for Study:SOB, CHF, Defib, Stents Procedures: 2D, M-mode, Doppler, Color Flow, Study performed at [facility], [place], [place] and interpreted by [facility]. ++++++++++++++++++++++++++++++++++++ SUMMARY: ++++++++++++++++++++++++++++++++++++ The left ventricular size is mildly enlarged. Estimated left ventricular ejection fraction is 20%. Left ventricular diastolic function is abnormal (grade 1 - impaired relaxation). The right ventricular size is normal. Right ventricular systolic function is at the lower limit of normal. Right ventricular systolic pressure is 50 mmHg. Inferior vena cava shows >50% collapse with respiration consistent with normal right atrial pressure. Moderate mitral regurgitation. Mild tricuspid regurgitation. ++++++++++++++++++++++++++++++++++++ FINDINGS: ++++++++++++++++++++++++++++++++++++ LV: The left ventricular size is mildly enlarged. The left ventricular systolic function is severely depressed. Estimated left ventricular ejection fraction is 20%. There is no left ventricular hypertrophy. The average E/e' is >14. Left ventricular diastolic function is abnormal (grade 1 - impaired relaxation). WM: Severe global hypokinesis with minor regional variation. RV: The right ventricular size is normal. Right ventricular systolic function is at the lower limit of normal. Right ventricular systolic pressure is 50 mmHg. A pacemaker wire is visualized in the right ventricle. LA: Left atrial size is normal. RA: A pacemaker wire is visualized in the right atrium. ALANIS: No evidence of pericardial effusion. AO: Aorta is normal. SVn: Inferior vena cava is normal. Inferior vena cava shows >50% collapse with respiration consistent with normal right atrial pressure. AV: No obvious evidence of aortic valve stenosis. No evidence of aortic regurgitation. The aortic valve not well visualized. MV: Structurally normal mitral valve. Moderate mitral regurgitation. PV: Pulmonic valve not well visualized. TV: Structurally normal tricuspid valve. Mild tricuspid regurgitation. <Electronic Signature> 11/01/2024 11:27 PM Toro Freire M.D. Procedure Note Toro Freire MD - 11/01/2024 Echocardiography Report Pat.Name: Jennifer Coates.ID: [id number] .Date: 10/29/2024 Refer.MD: Shandra, [facility] Exam Time: 3:46:00 PM Study Type:OUTREACH Height: 60 in Weight: 177 lb BSA: 1.77 m2 Age: 9 1940,84Y Sex: F Sonogrphr: Sf Pat. Stat.:Outpatient Reason for Study:SOB, CHF, Defib, Stents Procedures: 2D, M-mode, Doppler, Color Flow, Study performed at [place], [place] and interpreted by [facility]. ++++++++++++++++++++++++++++++++++++ SUMMARY: ++++++++++++++++++++++++++++++++++++ The left ventricular size is mildly enlarged. Estimated left ventricular ejection fraction is 20%. Left ventricular diastolic function is abnormal (grade 1 - impaired relaxation). The right ventricular size is normal. Right ventricular systolic function is at the lower limit of normal. Right ventricular systolic pressure is 50 mmHg. Inferior vena cava shows >50% collapse with respiration consistent with normal right atrial pressure. Moderate mitral regurgitation. Mild tricuspid regurgitation. ++++++++++++++++++++++++++++++++++++ FINDINGS: ++++++++++++++++++++++++++++++++++++ LV: The left ventricular size is mildly enlarged. The left ventricular systolic function is severely depressed. Estimated left ventricular ejection fraction is 20%. There is no left ventricular hypertrophy. The average E/e' is >14. Left ventricular diastolic function is abnormal (grade 1 - impaired relaxation). WM: Severe global hypokinesis with minor regional variation. RV: The right ventricular size is normal. Right ventricular systolic function is at the lower limit of normal. Right ventricular systolic pressure is 50 mmHg. A pacemaker wire is visualized in the right ventricle. LA: Left atrial size is normal. RA: A pacemaker wire is visualized in the right atrium. ALANIS: No evidence of pericardial effusion. AO: Aorta is normal. SVn: Inferior vena cava is normal. Inferior vena cava shows >50% collapse with respiration consistent with normal right atrial pressure. AV: No obvious evidence of aortic valve stenosis. No evidence of aortic regurgitation. The aortic valve not well visualized. MV: Structurally normal mitral valve. Moderate mitral regurgitation. PV: Pulmonic valve not well visualized. TV: Structurally normal tricuspid valve. Mild tricuspid regurgitation. <Electronic Signature> 11/01/2024 11:27 PM Toro Freire M.D. us Toro Freire MD ECHO Final Result * ECG 12 lead (HOSPITAL PERFORMED ONLY) (10/12/2024 3:21 PM CENTER MACHINE SET UP OPERATOR) 10/12/2024 3:21 PM CENTER MACHINE SET UP OPERATOR Narrative [facility] - 10/12/2024 6:34 PM CENTER MACHINE SET UP OPERATOR [address] [place] [address] Test Date: 2024-10-12 Pat Name: JENNIFER COATES Department: 3 Room: Gender: Female Barrel Racer: : 1940 Requested By: TORO FREIRE Order Number: [id number] Reading MD: Toro Freire Measurements Intervals [place] Rate: 107 P: 69 MS: 160 QRS: 148 QRSD: 120 T: -2 QT: 356 QTc: 477 Interpretive Statements SINUS TACHYCARDIA WITH OCCASIONAL VENTRICULAR PREMATURE COMPLEXES POSSIBLE RIGHT VENTRICULAR HYPERTROPHY [SOME/ALL OF: PROMINENT R IN V1, LATE TRANSITION, RAD, BONILLA, SSS] POSSIBLE ANTERIOR MYOCARDIAL INFARCTION [30 ms Q WAVE IN V3/V4, OR R < 0.2 mV IN V4], PROBABLY OLD ER MACHINE SET UP OPERATOR Procedure Note Toro Freire MD - 10/12/[address] [place] [address] Test Date: 2024-10-12 Pat Name: JENNIFER COATES Department: 3 Room: Gender: Female Barrel Racer: : 1940 Requested By: TORO FREIRE Order Number: [id number] Reading MD: Toro Freire Measurements Intervals [place] Rate: 107 P: 69 MS: 160 QRS: 148 QRSD: 120 T: -2 QT: 356 QTc: 477 Interpretive Statements SINUS TACHYCARDIA WITH OCCASIONAL VENTRICULAR PREMATURE COMPLEXES POSSIBLE RIGHT VENTRICULAR HYPERTROPHY [SOME/ALL OF: PROMINENT R IN V1,LATE TRANSITION, RAD, BONILLA, SSS] POSSIBLE ANTERIOR MYOCARDIAL INFARCTION [30 ms Q WAVE IN V3/V4, OR R < 0.2mV IN V4], PROBABLY OLD ER MACHINE SET UP OPERATOR us Toro Freire MD ECG ORDERABLES Final Result [facility] * (ABNORMAL) BASIC METABOLIC [...] Final Result * ELECTROCARDIOGRAM (09/01/2024 10:27 AM CENTER MACHINE SET UP OPERATOR) 09/01/2024 10:2 7 AM CENTER MACHINE SET UP OPERATOR Narrative [facility] - 09/07/2024 7:54 AM CENTER MACHINE SET UP OPERATOR [facility] [address] [place] [address] Test Date: 2024-09-01 Pat Name: JENNIFER CABALLERORINE Department: 105 Room: Gender: Female Barrel Racer: GIO : 1940 Requested By: CHRISTEL LU Order Number: [id number] Reading MD: Christel Lu Measurements Intervals [place] Rate: 91 P: 44 MS: 185 QRS: -54 QRSD: 115 T: 123 QT: 368 QTc: 455 Interpretive Statements SINUS RHYTHM LEFT AXIS DEVIATION MODERATE INTRAVENTRICULAR CONDUCTION DELAY ST DEVIATION AND MODERATE T-WAVE ABNORMALITY, CONSIDER LATERAL ISCHEMIA ER MACHINE SET UP OPERATOR Procedure Note Christel Lu MD - 09/07/2024 [facility], [facility] [address] [place] [address] Test Date: 2024-09-01 Pat Name: JENNIFER COATES Department: 105 Room: Gender: Female Barrel Racer: GIO : 1940 Requested By: CHRISTEL LU Order Number: [id number] Reading MD: Christel Lu Measurements Intervals [place] Rate: 91 P: 44 MS: 185 QRS: -54 QRSD: 115 T: 123 QT: 368 QTc: 455 Interpretive Statements SINUS RHYTHM LEFT AXIS DEVIATION MODERATE INTRAVENTRICULAR CONDUCTION DELAY ST DEVIATION AND MODERATE T-WAVE ABNORMALITY, CONSIDER LATERAL ISCHEMIA ER MACHINE SET UP OPERATOR Christel Lu MD PROCEDURES-ORDERABLE NO CHARGE F inal Result [facility] * (ABNORMAL) COMPREHENSIVE METABOLIC PANEL (08/31/2024) SODIUM S/P/B 138 GLUCOSE 103 mg/dL AST 31 BUN 27 CREATININE S/P/B 1.23(A) 0.5 - 1.0 CALCIUM S/P/B 8.0 POTASSIUM S/P/B 3.8 CHLORIDE S/P/B 102 ALT 21 GFR ESTIMATE 42 Narrative Resulting Agency Comment [facility] us Default History Genericprovider LABORATORY Final Result * CBC, MANUAL DIFF (08/31/2024) WBC 7.4 HGB 10.8 HCT 35.8 PLT 231 Narrative Resulting Agency Comment [facility] us Default History Genericprovider LABORATORY Final Result * ECG (08/28/2024 12:00 AM CENTER MACHINE SET UP OPERATOR) 08/28/2024 us Doc Pccl Scanned SCANNING Final Result [facility] * IMAGE STUDY (08/28/2024 12:00 AM CENTER MACHINE SET UP OPERATOR) Anatomical Region Laterality Modality Other 08/28/2024 us Doc Pccl Scanned SCANNING Final Result * LIPID PANEL (03/27/2021 10:35 AM CDT) CHOLESTEROL 201 MG/DL 03/27/2021 11:16 AM CDT [facility] Comment:BORDERLINE HIGH: 200 -239 TRIGLYCERIDES 175 MG/DL 03/27/2021 11:16 AM CDT [facility] Comment:150-199 BORDERLINE H IGH HDL 56 >49 MG/DL 03/27/2021 11:16 AM CDT [facility] LDL (CALCULATED) 110 MG/DL 03/27/20 11:16 AM CDT [facility] Comment:100-129 NEAR OR ABOV E OPTIMAL VLDL CALCULATION 35 MG/DL 03/27/20 11:16 AM CDT [facility] Comment:REFERENCE RANGE NOT ESTABLISHED CHOL/HDL RATIO 3.6 03/27/2021 11:16 AM CDT [facility] Comment:REFERENCE RANGE NOT ESTABLISHED LDL/HDL 2.0 03/27/2021 11:16 AM CDT [facility] Comment:REFERENCE RANGE NOT ESTABLISHED NON HDL CHOLESTEROL 145 MG/DL 03/27/2021 11:16 AM CDT [facility] Comment:REFERENCE RANGE NOT ESTABLISHED 03/27/2021 10:3 5 AM CDT us POLLO Brand APRN LABORATORY Final Result Performing Organization Address City/State/[facility] Co de Phone Number [facility] [address] [place] [address], [phone] from Last 3 Months or Most Recently Relevant to Health Maintenance Insurance [facility] MEDICAID [facility] MEDICAID Advance Directives Documents on File Type Date Recorded Patient Remelt Furnace Expediter Expl anation Power of Sample Washer 10/21/2024 2:16 PM 2012 - ALEXANDRA COATES, [...] Relationship Healthcare Agent Relationship Communication Alexandra Coates ([facility]) Son Health Care Agent Reji Coates Other First Alternate Health Care Agent Angel Coates Other Second Alternate Health Care Agent Care Teams Discharge Coordinator Relationship Specialty Start Date End Date Gino Meyer MD [address] [place] [address] PCP - General INTERNAL MEDICINE 06/11/17 Christel Lu MD [address] [place] [address] EP Sustainability Analyst CLINICAL CARDIAC ELECTROPHYSIOLOGY 06/12/23 Toro Freire MD [address] [place] [address] Kiel Sustainability Analyst CARDIOVASCULAR DISEASE 10/16/24
--- OUTSIDE RECORDS SUMMARY | 2024-11-12 13:04 | XMS_ITS | CONTINUITY OF CARE DOCUMENT ---
Author Name angel, angel Address Unknown Organization [facility] Address [address] [place] [address] Phone [phone] Care Team Providers Care Waste Salvager Name Role Phone Nav Houser MD Unavailable [phone] KENNEDY SARMIENTO MD Unavailable KENNEDY SARMIENTO MD [...] Coverage type Pam aceves ID MARLENA JUAREZ Glyde insurance Furnésh pany [id number] [place] Medicare [id number] TREATMENT PLAN Date Name Performer Cardiology printed [...] ..... One tab. daily Nav Houser MD aBlwinder [place] : H er updated medication list [...] Nav Houser MD INTERROGATION REMOTE </90 D INSPECTION MACHINE TENDER REVIEW completed AICD Interrogation, Remote (Prof) Nav [...] Nav Corrina MD INTERROGATION REMOTE </90 D INSPECTION MACHINE TENDER REVIEW completed AICD Interrogation, Remote (Prof) Nav [...] Nav Corrina MD INTERROGATION REMOTE </90 D INSPECTION MACHINE TENDER REVIEW completed AICD Interrogation, Remote (Prof) Nav [...] Nav Corrina MD INTERROGATION REMOTE </90 D INSPECTION MACHINE TENDER REVIEW completed AICD Interrogation, Remote (Prof) Nav [...] Nav Corrina MD INTERROGATION REMOTE </90 D INSPECTION MACHINE TENDER REVIEW completed AICD Interrogation, Remote (Prof) Nav [...] Nav Corrina MD INTERROGATION REMOTE </90 D INSPECTION MACHINE TENDER REVIEW completed AICD Interrogation, Remote (Prof) Nav [...] Nav Corrina MD INTERROGATION REMOTE </90 D INSPECTION MACHINE TENDER REVIEW completed AICD Interrogation, Remote (Prof) Nav [...] Nav Corrina MD INTERROGATION REMOTE </90 D INSPECTION MACHINE TENDER REVIEW completed AICD Interrogation, Remote (Prof) Nav [...] Nav Corrina MD INTERROGATION REMOTE </90 D INSPECTION MACHINE TENDER REVIEW completed AICD Interrogation, Remote (Prof) Nav [...]
--- OUTSIDE RECORDS SUMMARY | 2024-11-12 13:04 | XMS_ITS | Encounter Summary ---
Author Organization [facility] Address [address] [place] [address] Care Team Providers Care Police Patrol Officer Name Role Phone Santos Fuentes MD Unavailable Unavailabl e Gino Meyer MD Primary Care Provider [phone] Shana Adams NP Unavailable Unavailable Christel Lu MD Unavailable Stella Llanos MD Unavailable Encounter Details Date Type Department Care Team (Late st Contact Info) Description 12/06/2022 Hospital Follow-up Call [facility] [address] [place] [address] Stephie Arreola, RN Social History [...] Sex Assigned at Female 09/01/2024 10:13 AM DIET CONSULTANT Legal Sex Female 10:21 PM CDT Gender [...] 1:15 AM CDT [facility] [address] [place] [address] Christel Lu MD [address] [place] [address] 12/21/2024 2:30 PM CDT [facility] [address] [place] [phone] Maciel Wang, PATanishaC [address] [place] [address] 12/21/2024 2:30 PM CDT [facility] [address] [place] [address] Christel Lu MD [address] [place] [address] 03/29/2025 1:00 PM CDT Office Visit [facility] [place] [address] Stella Llanos MD [address] [place] [address] documented as of this encounter [...] on filedocumented in this encounter Care Teams Police Patrol Officer Relationship Specialty Start Date End Date Gino Meyer MD [address] [place] [address] PCP - General INTERNAL MEDICINE 06/11/17 Santos Fuentes MD [place] Staff Field Engineer CARDIOVASCULAR DISEASE 02/06/17 08/31/24 Shana Adams NP [address] [place] [address] Referring Physician Nurse Practitioner Family 02/27/23 Christel Lu MD [address] [place] [address] EP Staff Field Engineer CLINICAL CARDIAC ELECTROPHYSIOLOGY 06/12/23 Stella Llanos MD [address] [place] [address] [place] Staff Field Engineer CARDIOVASCULAR DISEASE 10/16/24 documented as of this encounter
== END 2024-11-12 12:04 | disposition home or self-care (01) ==
LOC: CHSLAB 12:04
PROVIDERS: PCP Internal Medicine; Visit Provider Internal Medicine
DX: I50.9 Heart failure, unspecified (principal); I25.10 Atherosclerotic heart disease of native coronary artery without angina pectoris; R60.9 Edema, unspecified
CPT/HCPCS: 36415; 80053; 80162; 83880

== ENCOUNTER 2024-11-19 11:04 | Outpatient (NON) | payer MEDICARE, SELFPAY ==
[2024-11-19 11:45] LABS: Alanine Aminotransferase 14 U/L (14-59); Albumin Level 3.3 g/dL (3.4-5.0); Alkaline Phosphatase 111 U/L (46-116); Anion Gap 7 mmol/L (4-12); Aspartate Amino Transferase 24 U/L (15-37); Bilirubin,Total 0.8 mg/dL (0.00-1.00); Blood Urea Nitrogen 26 mg/dL (7-18); Calcium 9.2 mg/dL (8.5-10.1); Carbon Dioxide 30 mmol/L (21-32); Chloride 98 mmol/L (98-108); Digoxin 1.4 ng/mL (0.9-2.0); Estimated Glomerular Filt Rate 44; Glucose 108 mg/dL (70-99); NT Pro B Type Natriuretic Pept 3851 pg/mL (0-450); Osmolality Calculated 285 mOsm/kg (285-295); Potassium 4.6 mmol/L (3.5-5.1); Sodium 135 mmol/L (136-145); Total Protein 7.7 g/dL (6.4-8.2)
--- OUTSIDE RECORDS SUMMARY | 2024-11-19 11:58 | XMS_ITS | Clinical Summary ---
Author Organization [facility] Address [address] [place] [address] Care Team Providers Care Buttoner Name Role Phone Gino Meyer MD Primary Care Provider [phone] Christel Lu MD Unavailable Toro Freire MD [...] carvedilol (COREG) 12.5 MG tabletIndication s:Atrial fibrillation ([facility]) TAKE ONE TABLET BY MOUTH TWICE A DAY 60 tablet 3 5 Active Active Problems Problem Noted Date Diagnosed Date Breast cancer ([facility]) 07/23/2023 S/P coronary artery stent placement 03/18/2021 Mixed hyperlipidemia 07/10/2017 Stage 2 chronic kidney disease 06/14/2014 Non-ischemic cardiomyopathy ([facility]) AICD (automatic cardioverter/defibrillator) pres ent Hypertension Coronary artery disease Systolic heart failure ([facility]) Resolved Problems Problem Noted Date Diagnosed Date Resolved Date Hypotension due to hypovolemia 04/25/2022 06/13/2023 Obesity (BMI 30-39.9) 07/10/20172021 Encounters Date Type Department Care Team Description 11/05/2024 Telephone [facility] ie [address] [place] [address] Toro Freire MD Results 10/29/2024 3:30 PM CDT - 10/29/2024 11:59 PM CDT Hospital Encounter [facility] [address] [place] [address] Toro Freire MD Discharge Disposition: Home or Self Care (Routine Discharge) 10/29/2024 Travel 10/16/2024 Telephone [facility]eld [address] [place] [address] Toro Freire MD Schedule Test 10/12/2024 3:45 PM SODA FOUNTAIN CLERK Office Visit [facility] [address] [place] [address] Toro Freire MD 10/12/2024 2:59 PM SODA FOUNTAIN CLERK - 10/12/2024 11:59 PM SODA FOUNTAIN CLERK Hospital Encounter [facility] [address] [place] [address] Toro Freire MD Discharge Disposition: Home or Self Care (Routine Discharge) 10/12/2024 Travel 10/08/2024 Orders Only [facility] [address] [place] [address] Toro Freire MD 10/07/2024 Telephone [facility] [address] [place] [address] Toro Freire MD Appointment Reminder 10/02/2024 Telephone [facility] [address] [place] [address] Jaida Yee, JAYDEN, UTILITY DIVISION PROJECT MANAGER-C Lab Results; Lab Order 09/30/2024 Scan [facility] [address] [place] [address] Scanned, Doc Pccl 09/30/2024 Telephone [facility] [address] [place] [address] Christel Lu MD Appointment Request 09/24/2024 Telephone [facility] [address] [place] [address] Jaida Yee APRN, UTILITY DIVISION PROJECT MANAGER-C Follow Up Call 09/24/2024 Orders Only [facility] [address] [place] [address] Heidy Landers LPN 09/22/2024 Abstract [facility] [address] [place] [address] Jaida Yee APRN, UTILITY DIVISION PROJECT MANAGER-C 09/22/2024 Telephone [facility] [address] [place] [address] Jaida Yee APRN, UTILITY DIVISION PROJECT MANAGER-C Other 09/16/2024 10:39 AM SODA FOUNTAIN CLERK - 09/16/2024 11:59 PM SODA FOUNTAIN CLERK Hospital Encounter [facility] [address] [place] [address] Barbi Day, STRIP PRESSER Discharge Disposition: Home or Self Care (Routine Discharge) 09/16/2024 Travel 09/16/2024 Telephone [facility] [address] [place] [address] Jaida Yee, JAYDEN, UTILITY DIVISION PROJECT MANAGER-C Question 09/10/2024 Telephone [facility] [address] [place] [address] Jaiad Yee, JAYDEN, UTILITY DIVISION PROJECT MANAGER-C Follow Up Call 09/10/2024 Abstract [facility] [address] [place] [address] Abstract, Doc Pccl 09/08/2024 11:00 AM SODA FOUNTAIN CLERK Office [facility] [address] [place] [address] Jaida Yee APRN, UTILITY DIVISION PROJECT MANAGER-C Follow Up; CHF 09/08/2024 Telephone [facility] [address] [place] [address] Toro Freire MD Appointment Request 09/08/2024 Telephone [facility] [address] [place] [address] Jaida Yee APRN, UTILITY DIVISION PROJECT MANAGER-C Referral 09/08/2024 Travel 09/01/2024 11:15 AM SODA FOUNTAIN CLERK Allied Health/Nurse Visit [facility] [address] [place] [address] Christel Lu MD 09/01/2024 11:15 AM SODA FOUNTAIN CLERK Office Visit [facility] [address] [place] [address] Christel Lu MD Follow Up; Cardiac Device Management; Atrial Fibrillation 09/01/2024 Orders Only [facility] [address] [place] [address] Jaida Yee, JAYDEN, UTILITY DIVISION PROJECT MANAGER-C 09/01/2024 Telephone [facility] [address] [place] [address] Jaida Yee, JAYDEN, UTILITY DIVISION PROJECT MANAGER-C Appointment Request 09/01/2024 Travel 08/31/2024 Scan [facility] [address] [place] [address] Scanned, Doc Pccl 08/31/2024 Orders Only [facility] [address] [place] [address] Christel Lu MD 08/31/2024 Telephone [facility] [address] [place] [address] Christel Lu MD Record Request 08/30/2024 Scan [facility] [address] [place] [address] Scanned, Doc Pccl 08/28/2024 Scan [facility] [address] [place] [address] Scanned, Doc Pccl Image (SCAN) 08/28/2024 Scan [facility] [address] [place] [address] Scanned, Doc Pccl ECG (SCAN) 08/28/2024 Scan [facility] [address] [place] [address] Scanned, Doc Pccl 08/28/2024 Telephone [facility] [address] [place] [address] Christel Lu MD Record Request 08/25/2024 Telephone [facility] [address] [place] [address] Christel Lu MD Reschedule from Last 3 Months Immunizations Name Administration [...] Sex Assigned at Female 09/01/2024 10:13 AM SODA FOUNTAIN CLERK Legal Sex Female 10:21 PM CDT Gender Identity Not on file Sexual Orientation Not on file Occupation Industry Job Start Date Job End Date retired Not on file Not on file Not on file Last Filed Vital Signs Vital Sign Reading Time Taken Comments Blood Pressure 110/60 10/12/2024 2:53 PM SODA FOUNTAIN CLERK Pulse 105 10/12/2024 2:53 PM SODA FOUNTAIN CLERK Temperature 36.8 C (98.2 F) 08/30/2023 12:39 PM SODA FOUNTAIN CLERK Respiratory Rate 16 10/12/2024 2:53 PM SODA FOUNTAIN CLERK Oxygen Saturation 100% 10/12/2024 2:53 PM SODA FOUNTAIN CLERK Inhaled Oxygen Concentration - - Weight 80.7 kg (178 lb) 10/12/2024 2:53 PM SODA FOUNTAIN CLERK Height 152.4 cm (5') 10/12/2024 2:53 PM SODA FOUNTAIN CLERK Body Mass Index 34.76 10/12/2024 2:53 PM SODA FOUNTAIN CLERK Plan of Treatment Upcoming Encounters Date Type Department Care Team (Late st Contact Info) Description 12/07/2024 1:15 AM CDT [facility] [address] [place] [address] Christel Lu MD [address] [place] [address] 12/21/2024 2:30 PM CDT [facility] [address] [place] [address] Maciel Wang PA-C [address] [place] [address] 12/21/2024 2:30 PM CDT [facility] [address] [place] [address] Christel Lu MD [address] [place] [address] 03/29/2025 1:00 PM CDT Office Visit [facility] [place] [address] Toro Freire MD [address] [place] [address] Health Maintenance Due Date Last Done Comments [...] Lambert RN Medical Devices Implanted Type Area Collaborating Supervising Physician Device Identifier Shelf Expiration Date Model / Serial / Lot [employer] Yaritza Holley Dr-08/30/2023 Implanted:Qty: 1 on 08/30/2023 by Christel Lu MD ICD [employer] 12/28/2024 [id number] / [id number] / Description:DX: NICM MRI Conditional under following conditions: Static magnetic field of 1.5 T or 3 T, Max spatial gradient field of 5000 Gauss/cm or less, Max slew rate 200 T/m/s , WHOLE BODY TERESO OF 2 W/KG OR LESS, HEAD TERESO 3.2 W/KG OR LESS , Supine or Prone only [employer] Ra-08/30/2023 Implanted:Qty: 1 on 08/30/2023 by Christel Lu MD Lead Implant [employer] 01/04/2025 [id number] / [id number] / [employer] Rv-08/30/2023 Implanted:Qty: 1 on 08/30/2023 by Christel Lu MD Lead Implant [employer] 04/08/2024 [id number] / [id number] / Cv Synergy Xd Jose-Lad- 021 Implanted:02/18 by Russell Bentley MD (Quantity not on file) Stent Coronary LAD [employer] 10/05/2022 [id number] / / [id number] Cv [employer] Xd Jose-[place]-2020 Implanted:02/18 by Russell Bentley MD (Quantity not on file) Stent Coronary LAD [employer] 11/17/2022 [id number] / / [id number] Procedures Procedure Name Priority Date/Time Associated Diagnosis Comments USE ECHOCARDIOGRAM Routine 10/29/2024 4: 28 PM CDT CHF (congestive heart failure) ([facility]/HCC HHS/HCC) ECG 12-LEAD Routine 10/12/2024 3:21 PM SODA FOUNTAIN CLERK Non-ischemic cardiomyopathy ([facility] HHS/HCC) BASIC METABOLIC PANEL Routine 09/24/2024 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 use of drug BASIC METABOLIC PANEL Routine 09/18/2024 jail use of drug BASIC METABOLIC PANEL Routine 09/09/2024 ELECTROCARDIOGRAM (NON MIDMARK ACQUIRED) Routine 09/01/2024 10:27 AM SODA FOUNTAIN CLERK Atrial fibrillation, unspecified type (CMS/HCC HHS/HCC) AICD (automatic cardioverter/defibri llator) present COMPREHENSIVE METABOLIC PANEL Routine 08/31/2024 CBC, MANUAL DIFF Routine 08/31/2024 ECG GENERIC (SCAN ORDER) Routine 025 12:00 AM SODA FOUNTAIN CLERK IMAGE GENERIC Routine 08/28/2024 12:00 AM SODA FOUNTAIN CLERK LIPID PANEL Routine 03/27/2021 10:35 AM CDT jail use of drug Hyperlipidemia, unspecified hyperlipidemia type from Last 3 Months or Most Recently Relevant to Health Maintenance Results * USE ECHOCARDIOGRAM (10/29/2024 4:28 PM CDT) Anatomical Region Laterality Modality Cardiac Ultrasound 10/29/2024 3:46 PM CDT Narrative 11/01/2024 11:27 PM CDT Echocardiography Report Pat.Name: Jennifer Coates Pat.ID: [id number] .Date: 10/29/2024 Refer.MD: Shandra, [facility] Exam Time: 3:46:00 PM Study Type:OUTREACH Height: 60 in Weight: 177 lb BSA: 1.77 m2 Age: 9 1940,84Y Sex: F Sonogrphr: Raza Pat. Stat.:Outpatient Reason for Study:SOB, CHF, Defib, Stents Procedures: 2D, M-mode, Doppler, Color Flow, Study performed at [facility], [place], [place] and interpreted by [facility]. ++++++++++++++++++++++++++++++++++++ SUMMARY: ++++++++++++++++++++++++++++++++++++ The left [...] MD - 11/01/2024 Echocardiography Report Pat.Name: Jennifer Coates Pat.ID: [id number] .Date: 10/29/2024 Refer.MD: Shandra, [facility] Exam Time: 3:46:00 PM Study Type:SHANDRA Height: 60 in Weight: 177 lb BSA: 1.77 m2 Age: 9 1940,84Y Sex: F Sonogrphr: Raza Pat. Stat.:Outpatient Reason for Study:SOB, CHF, Defib, Stents Procedures: 2D, M-mode, Doppler, Color Flow, Study performed at [place], [place] and interpreted by [facility]. ++++++++++++++++++++++++++++++++++++ SUMMARY: ++++++++++++++++++++++++++++++++++++ The left [...] lead (HOSPITAL PERFORMED ONLY) (10/12/2024 3:21 PM SODA FOUNTAIN CLERK) 10/12/2024 3:21 PM SODA FOUNTAIN CLERK Narrative [facility] - 10/12/2024 6:34 PM SODA FOUNTAIN CLERK [address] [place] [address] Test Date: 2024-10-12 Pat Name: JENNIFER COATES Department: 3 Room: Gender: Female Lugger: : 1940 Requested By: TORO FREIRE Order Number: [id number] Reading MD: Toro Freire Measurements Intervals [place] Rate: 107 P: 69 CT: 160 QRS: 148 QRSD: 120 T: -2 QT: 356 QTc: 477 Interpretive Statements SINUS TACHYCARDIA WITH OCCASIONAL VENTRICULAR PREMATURE COMPLEXES POSSIBLE RIGHT VENTRICULAR HYPERTROPHY [SOME/ALL OF: PROMINENT R IN V1, LATE TRANSITION, RAD, BONILLA, SSS] POSSIBLE ANTERIOR MYOCARDIAL INFARCTION [30 ms Q WAVE IN V3/V4, OR R < 0.2 mV IN V4], PROBABLY OLD FOUNTAIN CLERK Procedure Note Toro Freire MD - 10/12/[address] [place] [address] Test Date: 2024-10-12 Pat Name: JENNIFER COATES Department: 3 Room: Gender: Female Lugger: : 1940 Requested By: TORO FREIRE Order Number: [id number] Reading : Toro Freire Measurements Intervals [place] Rate: 107 P: 69 CT: 160 QRS: 148 QRSD: 120 T: -2 QT: 356 QTc: 477 Interpretive Statements SINUS TACHYCARDIA WITH OCCASIONAL VENTRICULAR PREMATURE COMPLEXES POSSIBLE RIGHT VENTRICULAR HYPERTROPHY [SOME/ALL OF: PROMINENT R IN V1,LATE TRANSITION, RAD, BONILLA, SSS] POSSIBLE ANTERIOR MYOCARDIAL INFARCTION [30 ms Q WAVE IN V3/V4, OR R < 0.2mV IN V4], PROBABLY OLD FOUNTAIN CLERK us Toro Freire MD ECG ORDERABLES Final Result [facility] * (ABNORMAL) BASIC METABOLIC PANEL [...] Final Result * ELECTROCARDIOGRAM (09/01/2024 10:27 AM SODA FOUNTAIN CLERK) 09/01/2024 10:2 7 AM SODA FOUNTAIN CLERK Narrative [facility] - 09/07/2024 7:54 AM SODA FOUNTAIN CLERK [facility] [place] [address] Test Date: 2024-09-01 Pat Name: JENNIFER COATES Department: 105 Room: Gender: Female Lugger: GIO : 1940 Requested By: CHRISTEL LU Order Number: [id number] aNbor MD: Christel Lu Measurements Intervals [place] Rate: 91 P: 44 CT: 185 QRS: -54 QRSD: 115 T: 123 QT: 368 QTc: 455 Interpretive Statements SINUS RHYTHM LEFT AXIS DEVIATION MODERATE INTRAVENTRICULAR CONDUCTION DELAY ST DEVIATION AND MODERATE T-WAVE ABNORMALITY, CONSIDER LATERAL ISCHEMIA FOUNTAIN CLERK Procedure Note Christel Lu MD - 09/07/2024 [facility] [place] [address] [place] [address] Test Date: 2024-09-01 Pat Name: JENNIFER COATES Department: 105 Room: Gender: Female Lugger: GIO : 1940 Requested By: CHRISTEL LU Order Number: [id number] Reading MD: Christel Lu Measurements Intervals [place] Rate: 91 P: 44 CT: 185 QRS: -54 QRSD: 115 T: 123 QT: 368 QTc: 455 Interpretive Statements SINUS RHYTHM LEFT AXIS DEVIATION MODERATE INTRAVENTRICULAR CONDUCTION DELAY ST DEVIATION AND MODERATE T-WAVE ABNORMALITY, CONSIDER LATERAL ISCHEMIA FOUNTAIN CLERK us Christel Lu MD PROCEDURES-ORDERABLE NO CHARGE F inal Result [facility] * (ABNORMAL) COMPREHENSIVE METABOLIC PANEL (08/31/2024) SODIUM S/P/B 138 GLUCOSE 103 mg/dL AST 31 BUN 27 CREATININE S/P/B 1.23(A) 0.5 - 1.0 CALCIUM S/P/B 8.0 POTASSIUM S/P/B 3.8 CHLORIDE S/P/B 102 ALT 21 GFR ESTIMATE 42 Narrative Resulting Agency Comment [facility] us Default History Genericprovider LABORATORY Final Result * CBC, MANUAL DIFF (08/31/2024) WBC 7.4 HGB 10.8 HCT 35.8 PLT 231 Narrative Resulting Agency Comment [facility] us Default History Genericprovider LABORATORY Final Result * ECG (08/28/2024 12:00 AM SODA FOUNTAIN CLERK) 08/28/2024 us Doc Pccl Scanned SCANNING Final Result [facility] * IMAGE STUDY (08/28/2024 12:00 AM SODA FOUNTAIN CLERK) Anatomical Region Laterality Modality Other 08/28/2024 us Doc Pccl Scanned SCANNING Final Result * LIPID PANEL (03/27/2021 10:35 AM CDT) CHOLESTEROL 201 MG/DL 03/27/2021 11:16 AM CDT [facility] Comment:BORDERLINE HIGH: 200 -239 TRIGLYCERIDES 175 MG/DL 03/27/2021 11:16 AM CDT [facility] Comment:150-199 BORDERLINE H IGH HDL 56 >49 MG/DL 03/27/2021 11:16 AM CDT [facility] LDL (CALCULATED) 110 MG/DL 03/27/20 11:16 AM CDT [facility] Comment:100-129 NEAR OR ABOV E OPTIMAL VLDL CALCULATION 35 MG/DL 03/27/20 11:16 AM CDT [facility] Comment:REFERENCE RANGE NOT ESTABLISHED CHOL/HDL RATIO 3.6 03/27/2021 11:16 AM CDT [facility] Comment:REFERENCE RANGE NOT ESTABLISHED LDL/HDL 2.0 03/27/2021 11:16 AM CDT [facility] Comment:REFERENCE RANGE NOT ESTABLISHED NON HDL CHOLESTEROL 145 MG/DL 03/27/2021 11:16 AM CDT [facility] Comment:REFERENCE RANGE NOT ESTABLISHED 03/27/2021 10:3 5 AM CDT us Jaida Yee APRN, UTILITY DIVISION PROJECT MANAGER-C LABORATORY Final Result [facility] [address] [place] [address], [id number] from Last 3 Months or Most Recently Relevant to Health Maintenance Insurance MEDICAID [facility] MEDICAID Advance Directives Documents on File Type Date Recorded Patient Fulfillment Representative Expl anation Power of Make Up Editor 10/21/2024 2:16 PM 2012 - ALEXANDRA COATES, [...] Relationship Healthcare Agent Relationship Communication Alexandra Coates ([facility]) Son Health Care Agent Reji Coates Other First Alternate Health Care Agent Angel Coates Other Second Alternate Health Care Agent Care Teams Buttoner Relationship Specialty Start Date End Date Gino Meyer MD [address] [place] [address] PCP - General INTERNAL MEDICINE 06/11/17 Christel Lu MD [address] [place] [address] EP Donor Floor Technician CLINICAL CARDIAC ELECTROPHYSIOLOGY 06/12/23 Toro Freire MD [address] [place] [address] [place] Donor Floor Technician CARDIOVASCULAR DISEASE 10/16/24
--- OUTSIDE RECORDS SUMMARY | 2024-11-19 11:58 | XMS_ITS | Encounter Summary ---
Author Organization [facility] Address [address] [place] [address] Care Team Providers Care Pyrotechnic Mixer Name Role Phone Toy Warren MD Primary Care Provider [phone] Santos Fuentes MD Unavailable Unavailabl e Gino Meyer MD Primary Care Provider [phone] Shana Adams NP Unavailable Unavailable Christel Lu MD Unavailable Stella Llanos MD Unavailable Encounter Details Date Type Department Care Team (Late st Contact Info) Description 01/31/2017 Abstract [facility] [address] [place] [address] Santos Fuentes MD Social History Tobacco Use Types Packs/Day Years Used Date Smoking Tobacco: Never Alcohol Use Standard Drinks/Week Comments No 0 (1 standard drink = 0.6 oz pur e alcohol) Comments Unknown Sex and Gender Information Value Date Recorded Sex Assigned at Female 09/01/2024 10:13 AM 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 [address] [place] [address] Maciel Wang PATanishaC [address] [place] [address] 12/21/2024 2:30 PM CDT Allied Health/Nurse Visit [facility] [address] [place] [address] Christel Lu MD [address] [place] [address] 03/29/2025 1:00 PM CDT Office Visit [facility] [place] [address] Stella Llanos MD [address] [place] [address] documented as of this encounter Visit Diagnoses Not on filedocumented in this encounter Additional Health Concerns Infection Onset Date Last Indicated Resolved Time COVID-19 Rule Out 04/24/2022 04/24/2022 04/24/2022 4:06 AM CDT documented as of this encounter Care Teams Pyrotechnic Mixer Relationship Specialty Start Date End Date Toy Warren MD [address] [place] [address] PCP - General INTERNAL MEDICINE 02/06/17 06/10/17 Gino Meyer MD [address] [place] [address] PCP - General INTERNAL MEDICINE 06/11/17 Santos Fuentes MD [address] [place] [address] [place] Multiple Coil [place] CARDIOVASCULAR DISEASE 02/06/17 08/31/24 Shana Adams NP [address] [place] [address] Referring Physician Nurse Practitioner [facility] 02/27/23 Christel Lu MD [address] [place] [address] EP Multiple Coil Winder CLINICAL CARDIAC ELECTROPHYSIOLOGY 06/12/23 Stella Llanos MD [address] [place] [address] [place] Multiple Coil [place] CARDIOVASCULAR DISEASE 10/16/24 documented as of this encounter
--- OUTSIDE RECORDS SUMMARY | 2024-11-19 11:58 | XMS_ITS | Encounter Summary ---
Author Organization [facility] Address [address] [place] [address] Care Team Providers Care Tele Marketing Executive Name Role Phone Toy Warren MD Primary Care Provider [phone] Santos Fuentes MD Unavailable Unavailabl e Gino Meyer MD Primary Care Provider [phone] Shana Adams NP Unavailable Unavailable Christel Lu MD Unavailable Stella Llanos MD Unavailable Encounter Details Date Type Department Care Team (Late st Contact Info) Description 03/06/2017 Abstract [facility] [address] [place] [address] Santos Fuentes MD Social History Tobacco Use Types Packs/Day Years Used Date Smoking Tobacco: Never Alcohol Use Standard Drinks/Week Comments No 0 (1 standard drink = 0.6 oz pur e alcohol) Comments Unknown Sex and Gender Information Value Date Recorded Sex Assigned at Female 09/01/2024 10:13 AM HOSPITAL CLINIC ASSISTANT Legal Sex Female 10:21 PM CDT Gender Identity Not on file Sexual Orientation Not on file Occupation Industry Job Start Date Job End Date retired Not on file Not on file Not on file documented as of this encounter Plan of Treatment Upcoming Encounters Date Type Department Care Team (Late st Contact Info) Description 12/07/2024 1:15 AM CDT Allied Health/Nurse Visit [facility] ld [address] [place] [address] Christel Lu MD [address] [place] [address] 12/21/2024 2:30 PM CDT Office Visit [facility] [address] [place] [address] Maciel Wang PATanishaC [address] [place] [address] 12/21/2024 2:30 PM CDT Allied Health/Nurse Visit [facility] [address] [place] [address] Christel Lu MD [address] [place] [address] 03/29/2025 1:00 PM CDT Office Visit [facility] [place] [address] Stella Llanos MD [address] [place] [address] documented as of this encounter Visit Diagnoses Not on filedocumented in this encounter Additional Health Concerns Infection Onset Date Last Indicated Resolved Time COVID-19 Rule Out 04/24/2022 04/24/2022 04/24/2022 4:06 AM CDT documented as of this encounter Care Teams Tele Marketing Executive Relationship Specialty Start Date End Date Toy Warren MD [address] [place] [address] PCP - General INTERNAL MEDICINE 02/06/17 06/10/17 Gino Meyer MD [address] [place] [address] PCP - General INTERNAL MEDICINE 06/11/17 Santos Fuentes MD [address] [place] [address] [place] Broker [employer] Produce CARDIOVASCULAR DISEASE 02/06/17 08/31/24 Shana Adams NP [address] [place] [address] Referring Physician Nurse Practitioner [facility] 02/27/23 Christel Lu MD [address] [place] [address] EP Broker Agricultural Produce CLINICAL CARDIAC ELECTROPHYSIOLOGY 06/12/23 Stella Llanos MD [address] [place] [address] [place] Broker [employer] Produce CARDIOVASCULAR DISEASE 10/16/24 documented as of this encounter
--- OUTSIDE RECORDS SUMMARY | 2024-11-19 11:58 | XMS_ITS | Encounter Summary ---
Author Organization [facility] Address [address] [place] [address] Care Team Providers Care Commercial Sheet Metal Foreman Name Role Phone Santos Fuentes MD Unavailable Unavailabl e Gino Meyer MD Primary Care Provider [phone] Shana Adams NP Unavailable Unavailable Christel Lu MD Unavailable Stella Llanos MD Unavailable Encounter Details Date Type Department Care Team (Late st Contact Info) Description 12/06/2022 Hospital Follow-up Call [facility] Care Unit [address] [place] [address] Stephie Arreola, RN Social History [...] Sex Assigned at Female 09/01/2024 10:13 AM 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 Legal Sex Female 10:21 PM CDT [...] 1:15 AM CDT [facility] [address] [place] [address] Christel Lu MD [address] [place] [address] 12/21/2024 2:30 PM CDT [facility] [address] [place] [address] Maciel Wang, PATanishaC [address] [place] [address] 12/21/2024 2:30 PM CDT [facility] [address] [place] [address] Christel Lu MD [address] [place] [address] 03/29/2025 1:00 PM CDT Office Visit [facility] [place] [address] Stella Llanos MD [address] [place] [address] documented as of this encounter [...] filedocumented in this encounter Care Teams Commercial Sheet Metal Foreman Relationship Specialty Start Date End Date Gino Meyer MD [address] [place] [address] PCP - General INTERNAL MEDICINE 06/11/17 Santos Fuentes MD [place] Stoker Erector And Servicer CARDIOVASCULAR DISEASE 02/06/17 08/31/24 Shana Adams NP [address] [place] [address] Referring Physician Nurse Practitioner Family 02/27/23 Christel Lu MD [address] [place] [address] EP Stoker Erector And Servicer CLINICAL CARDIAC ELECTROPHYSIOLOGY 06/12/23 Stella Llanos MD [address] [place] [address] [place] Stoker Erector And Servicer CARDIOVASCULAR DISEASE 10/16/24 documented as of this encounter
--- OUTSIDE RECORDS SUMMARY | 2024-11-19 11:58 | XMS_ITS | CONTINUITY OF CARE DOCUMENT ---
Author Name angel, angel Address Unknown Organization [facility] Address [address] [place] [address] Phone [phone] Care Team Providers Care Whizzer Operator Name Role Phone Nav Houser MD Unavailable [phone] KENNEDY SARMIENTO MD Unavailable KENNEDY SARMIENTO [...] Coverage type Pam aceves ID MARLENA JUAREZ [employer] insurance [employer] pany [id number] [place] MED[place] Medicare [id number] TREATMENT PLAN Date Name Performer Cardiology printed [...] Nav Houser MD INTERROGATION REMOTE </90 D HEALTH AND SAFETY MANAGER REVIEW completed AICD Interrogation, Remote (Prof) Nav [...] Nav Corrina MD INTERROGATION REMOTE </90 D HEALTH AND SAFETY MANAGER REVIEW completed AICD Interrogation, Remote (Prof) Nav [...] Nav Corrina MD INTERROGATION REMOTE </90 D HEALTH AND SAFETY MANAGER REVIEW completed AICD Interrogation, Remote (Prof) Nav [...] Nav Corrina MD INTERROGATION REMOTE </90 D HEALTH AND SAFETY MANAGER REVIEW completed AICD Interrogation, Remote (Prof) Nav [...] Nav Corrina MD INTERROGATION REMOTE </90 D HEALTH AND SAFETY MANAGER REVIEW completed AICD Interrogation, Remote (Prof) Nav [...] Nav Corrina MD INTERROGATION REMOTE </90 D HEALTH AND SAFETY MANAGER REVIEW completed AICD Interrogation, Remote (Prof) Nav [...] Nav Corrina MD INTERROGATION REMOTE </90 D HEALTH AND SAFETY MANAGER REVIEW completed AICD Interrogation, Remote (Prof) Nav [...] Nav Corrina MD INTERROGATION REMOTE </90 D HEALTH AND SAFETY MANAGER REVIEW completed AICD Interrogation, Remote (Prof) Nav [...] Nav Corrina MD INTERROGATION REMOTE </90 D HEALTH AND SAFETY MANAGER REVIEW completed AICD Interrogation, Remote (Prof) Nav [...]
--- OUTSIDE RECORDS SUMMARY | 2024-11-19 11:58 | XMS_ITS | Encounter Summary ---
Author Organization [facility] Address [address] [place] [address] Care Team Providers Care Payment Collector Name Role Phone Santos Fuentes MD Unavailable Unavailabl e Gino Meyer MD Primary Care Provider [phone] Shana Adams NP Unavailable Unavailable Christel Lu MD Unavailable Stella Llanos MD Unavailable Encounter Details Date Type Department Care Team (Late st Contact Info) Description 02/15/2021 Abstract [facility] [address] [place] [address] Santos Fuentes MD Social History Tobacco Use Types Packs/Day Years Used Date Smoking Tobacco: Never Smokeless Tobacco: Never Alcohol Use Standard Drinks/Week Comments No 0 (1 standard drink = 0.6 oz pur e alcohol) Comments Unknown Sex and Gender Information Value Date Recorded Sex Assigned at Female 09/01/2024 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 Legal Sex Female 10:21 PM CDT [...] AM CDT Allied Health/Nurse Visit [facility] ld [address] [place] [address] Christel Lu MD [address] [place] [address] 12/21/2024 2:30 PM CDT Office Visit [facility] ld [address] [place] [address] Maciel Wang, PA-C [address] [place] [address] 12/21/2024 2:30 PM CDT Allied Health/Nurse Visit [facility] [address] [place] [address] Christel Lu MD [address] [place] [address] 03/29/2025 1:00 PM CDT Office Visit [facility] [place] [address] Stella Llanos MD [address] [place] [address] documented as of this encounter [...] documented as of this encounter Care Teams Payment Collector Relationship Specialty Start Date End Date Gino Meyer MD [address] [place] [address] PCP - General INTERNAL MEDICINE 06/11/17 Santos Fuentes MD [place] Refinery Operator Helper Cracking Unit CARDIOVASCULAR DISEASE 02/06/17 08/31/24 Shana Adams NP [address] [place] [address] Referring Physician Nurse Practitioner Family 02/27/23 Christel Lu MD [address] [place] [address] EP Refinery Operator Helper Cracking Unit CLINICAL CARDIAC ELECTROPHYSIOLOGY 06/12/23 Stella Llanos MD [address] [place] [address] [place] Refinery Operator Helper Cracking Unit CARDIOVASCULAR DISEASE 10/16/24 documented as of this encounter
== END 2024-11-19 11:05 | disposition home or self-care (01) ==
LOC: CHSLAB 11:05
PROVIDERS: PCP Internal Medicine; Visit Provider Internal Medicine
DX: I50.9 Heart failure, unspecified (principal); I25.10 Atherosclerotic heart disease of native coronary artery without angina pectoris; R60.9 Edema, unspecified
CPT/HCPCS: 36415; 80053; 80162; 83880

== ENCOUNTER 2025-04-10 07:55 | Emergency (ER) | payer MEDICARE, MEDICAID, SELFPAY ==
--- NOTE | ~2025-04-10 | XR_ITS ---
XR foot LT min 3V 04/10/2025 08:54 Indication: Post reduction left first toe Procedure: 3 views left foot Comparison: 04/10/2025 Findings: Interval reduction of the first toe at the metatarsal phalangeal joint. There is anatomic alignment post reduction. No underlying fracture. Impression: 1: Anatomic alignment of the left first toe post reduction. No underlying fracture identified. Reviewed, dictated and finalized at location O. Impression: 1: Anatomic alignment of the left first toe post reduction. No underlying fract ure identified.
--- NOTE | ~2025-04-10 | XR_ITS ---
XR ankle LT min 3V, XR foot LT min 3V 04/10/2025 08:14 Indication: Left foot and ankle injury. Pain with swelling for 3 days. Procedure: 3 views left ankle and 3 views left foot Comparison: No prior studies for comparison. Findings: There is dislocation of the first toe at the metatarsal phalangeal joint. The proximal phalanx is dislocated superiorly with respect to the metatarsal. No definite fracture identified. Lisfranc joint intact. There are degenerative calcaneal enthesophytes. Ankle mortise intact. Moderate diffuse subcutaneous edema. Impression: 1: Dorsal dislocation of the left first toe at the metatarsophalangeal joint. Reviewed, dictated and finalized at location O. Impression: 1: Dorsal dislocation of the left first toe at the metatarsophalangeal joint. Impression: 1: Dorsal dislocation of the left first toe at the metatarsophalangeal joint.
[2025-04-10 08:05] VITALS: BP 106/68; PULSE 105; RESP 20; TEMP 36.7; O2SAT 97
--- OUTSIDE RECORDS SUMMARY | 2025-04-10 08:22 | XMS_ITS | Encounter Summary ---
Author Organization [facility] Address [address] [place] [address] Care Team Providers Care Vacation Sales Advisor Name Role Phone Toy Warren MD Primary Care Provider [phone] Santos Fuentes MD Unavailable [phone] Gino Meyer MD Primary Care Provider [phone] Shana Adams NP Unavailable Unavailable Christel Lu MD Unavailable Stella Llanos MD Unavailable Encounter Details Date Type Department Care Team (Late st Contact Info) Description 01/31/2017 Abstract [facility] [address] [place] [address] Santos Fuentes MD [address] [place] [address] Social History Tobacco Use Types Packs/Day Years Used Date Smoking Tobacco: Never Alcohol Use Standard Drinks/Week Comments No 0 (1 standard drink = 0.6 oz pur e alcohol) Comments Unknown Sex and Gender Information Value Date Recorded Sex Assigned at Female 09/01/2024 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 Legal Sex Female 10:21 PM CDT Gender Identity Female 03/29/2025 8:02 PM CDT Sexual Orientation Not on file Occupation Industry Job Start Date Job End Date retired Not on file Not on file Not on file documented as of this encounter Plan of Treatment Upcoming Encounters Date Type Department Care Team (Late st Contact Info) Description 05/05/2025 2:00 PM CDT Office Visit [facility] [place] [address] Stella Llanos MD [address] [place] [address] 06/14/2025 1:00 AM CDT Allied Health/Nurse Visit [facility] [address] [place] [address] Christel Lu MD [address] [place] [address] documented as of this encounter Visit Diagnoses Not on filedocumented in this encounter Additional Health Concerns Infection Onset Date Last Indicated Resolved Time COVID-19 Rule Out 04/24/2022 04/24/2022 04/24/2022 4:06 AM CDT Respiratory Rule Out 03/29/2025 03/29/2025 025 1:55 PM CDT documented as of this encounter Care Teams Vacation Sales Advisor Relationship Specialty Start Date End Date Toy Warren MD [address] [place], [place] [id number] PCP - General INTERNAL MEDICINE 02/06/17 06/10/17 Gino Meyer MD [address] [place] [address] PCP - General INTERNAL MEDICINE 06/11/17 Santos Fuentes MD [address] [place] [address] [place] Algebraist CARDIOVASCULAR DISEASE 02/06/17 08/31/24 Shana Adams NP [address] [place] [address] Referring Physician Nurse Practitioner Family 02/27/23 Christel Lu MD [address] [place] [address] EP Algebraist CLINICAL CARDIAC ELECTROPHYSIOLOGY 06/12/23 Stella Llanos MD [address] [place] [address] [place] Algebraist CARDIOVASCULAR DISEASE 09/28/24 documented as of this encounter
--- OUTSIDE RECORDS SUMMARY | 2025-04-10 08:22 | XMS_ITS | Encounter Summary ---
Author Organization [facility] Address [address] [place] [address] Care Team Providers Care Court Specialist Name Role Phone Santos Fuentes MD Unavailable [phone] Gino Meyer MD Primary Care Provider [phone] Shana Adams NP Unavailable Unavailable Christel Lu MD Unavailable Stella Llanos MD Unavailable Encounter Details Date Type Department Care Team (Late st Contact Info) Description 02/15/2021 Abstract [facility] [address] [place] [address] Santos Fuentes MD [address] [place] [address] Social History Tobacco Use Types Packs/Day Years Used Date Smoking Tobacco: Never Smokeless Tobacco: Never Alcohol Use Standard Drinks/Week Comments No 0 (1 standard drink = 0.6 oz pur e alcohol) Comments Unknown Sex and Gender Information Value Date Recorded Sex Assigned at Female 09/01/2024 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 Legal Sex Female 10:21 PM CDT Gender [...] Description 05/05/2025 2:00 PM CDT Office Visit [facility] [place] [address] Stella Llanos MD [address] [place], [place] [address] 06/14/2025 1:00 AM CDT Allied Health/Nurse Visit [facility] ld [address] [place] [address] Christel Lu MD [address] [place] [address] documented as of this encounter [...] documented as of this encounter Care Teams Court Specialist Relationship Specialty Start Date End Date Gino Meyer MD [address] [place] [address] PCP - General INTERNAL MEDICINE 06/11/17 Santos Fuentes MD [address] [place] [address] [place] Labor Arbitrator CARDIOVASCULAR DISEASE 02/06/17 08/31/24 Shana Adams NP [address] [place] [address] Referring Physician Nurse Practitioner Family 02/27/23 Christel Lu MD [address] [place] [address] EP Labor Arbitrator CLINICAL CARDIAC ELECTROPHYSIOLOGY 06/12/23 Stella Llanos MD [address] [place] [address] [place] Labor Arbitrator CARDIOVASCULAR DISEASE 09/28/24 documented as of this encounter
--- OUTSIDE RECORDS SUMMARY | 2025-04-10 08:22 | XMS_ITS | Encounter Summary ---
Author Organization [facility] Address [address] [place] [address] Care Team Providers Care Computer Technologist Name Role Phone Toy Warren MD Primary Care Provider [phone] Santos Fuentes MD Unavailable [phone] Gino Meyer MD Primary Care Provider [phone] Shana Adams NP Unavailable Unavailable Christel Lu MD Unavailable Stella Llanos MD Unavailable Encounter Details Date Type Department Care Team (Late st Contact Info) Description 03/06/2017 Abstract [facility] [address] [place] [address] Santos Fuentes MD [address] [place] [address] Social History Tobacco Use Types Packs/Day Years Used Date Smoking Tobacco: Never Alcohol Use Standard Drinks/Week Comments No 0 (1 standard drink = 0.6 oz pur e alcohol) Comments Unknown Sex and Gender Information Value Date Recorded Sex Assigned at Female 09/01/2024 10:13 AM 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 Legal Sex Female 10:21 PM CDT Gender Identity Female 03/29/2025 8:02 PM CDT Sexual Orientation Not on file Occupation Industry Job Start Date Job End Date retired Not on file Not on file Not on file documented as of this encounter Plan of Treatment Upcoming Encounters Date Type Department Care Team (Late st Contact Info) Description 05/05/2025 2:00 PM CDT Office Visit [facility] [place] [address] Stella Llanos MD [address] [place] [address] 06/14/2025 1:00 AM CDT Allied Health/Nurse Visit [facility] [address] [place] [address] Christel Lu MD [address] [place] [address] documented as of this encounter Visit Diagnoses Not on filedocumented in this encounter Additional Health Concerns Infection Onset Date Last Indicated Resolved Time COVID-19 Rule Out 04/24/2022 04/24/2022 04/24/2022 4:06 AM CDT Respiratory Rule Out 03/29/2025 03/29/2025 025 1:55 PM CDT documented as of this encounter Care Teams Computer Technologist Relationship Specialty Start Date End Date Toy Warren MD [address] [place], [place] [phone] PCP - General INTERNAL MEDICINE 02/06/17 06/10/17 Gino Meyer MD [address] [place] [address] PCP - General INTERNAL MEDICINE 06/11/17 Santos Fuentes MD [address] [place] [address] [place] Motorcycle Racer CARDIOVASCULAR DISEASE 02/06/17 08/31/24 Shana Adams NP [address] [place] [address] Referring Physician Nurse Practitioner Family 02/27/23 Christel Lu MD [address] [place] [address] EP Motorcycle Racer CLINICAL CARDIAC ELECTROPHYSIOLOGY 06/12/23 Stella Llanos MD [address] [place] [address] [place] Motorcycle Racer CARDIOVASCULAR DISEASE 09/28/24 documented as of this encounter
--- OUTSIDE RECORDS SUMMARY | 2025-04-10 08:22 | XMS_ITS | Encounter Summary ---
Author Organization [facility] Address [address] [place] [address] Care Team Providers Care Automotive Artist Name Role Phone Santos Fuentes MD Unavailable [phone] Gino Meyer MD Primary Care Provider [phone] Shana Adams NP Unavailable Unavailable Christel Lu MD Unavailable Stella Llanos MD Unavailable Encounter Details Date Type Department Care Team (Late st Contact Info) Description 12/06/2022 Hospital Follow-up Call 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 Legal Sex Female 10:21 PM CDT Gender [...] No 11/29/2022 1:48 PM CDT Helga Hallman RN Active * Because of a physical, mental, [...] Description 05/05/2025 2:00 PM CDT Office Visit [facility] [place] [address] Stella Llanos MD [address] [place] [address] 06/14/2025 1:00 AM CDT [facility] [address] [place] [address] Christel Lu MD [address] [place] [address] documented as of this encounter [...] Infection Onset Date Last Indicated Resolved Time Respiratory Rule Out 03/29/2025 03/29/2025 025 1:55 PM CDT documented as of this encounter Care Teams Automotive Artist Relationship Specialty Start Date End Date Gino Meyer MD [address] [place] [address] PCP - General INTERNAL MEDICINE 06/11/17 Santos Fuentes MD [address] [place] [address] [place] Waterproofing Supervisor CARDIOVASCULAR DISEASE 02/06/17 08/31/24 Shana Adams NP [address] [place] [address] Referring Physician Nurse Practitioner [facility] 02/27/23 Christel Lu MD [address] [place] [address] EP Waterproofing Supervisor CLINICAL CARDIAC ELECTROPHYSIOLOGY 06/12/23 Stella Llanos MD [address] [place] [address] [place] Waterproofing Supervisor CARDIOVASCULAR DISEASE 09/28/24 documented as of this encounter
[2025-04-10] MEDS: MORPHINE SULFATE (*CRX) 2 MG/ML INJ IM (08:30)
--- NOTE | 2025-04-10 09:01 | ED.LOWEXIN ---
HPI - Extremity Injury (Lower) General Chief Complaint: Extremity Injury, Lower Stated Complaint: fall Time Seen by Provider: 04/10/25 08:01 Source: patient and EMS Mode of arrival: EMS Limitations: physical limitation History of Present Illness HPI Narrative: this is a an 84-year-old female resident of [facility] presents after she had a fall and injured her left foot with a hematoma to the anterior surface of her left foot with painful left great toe, there is currently pain level about a 9/10 with no numbness or tingling has good range of motion no other injuries noted. MD complaint: foot injury Injury: Left: ankle ( foot hematoma with dislocation of left great toe) Type of Injury: blunt Place: SNF Severity: severe Severity scale (1-10): 9 Relieving factors: immobilization Exacerbating factors: weight bearing, movement and palpation Context: fall Associated symptoms: swelling Related Data Home Medications ?Medication ?Instructions ?Recorded ?Confirmed ?Last Taken ?Type atorvastatin 10 mg tablet 10 mg PO DAILY 11/13/22 10/30/24 04/03/24 20:00 History montelukast 10 mg tablet 10 mg PO DAILY 11/13/22 10/30/24 04/03/24 20:00 History spironolactone 25 mg tablet 25 mg PO BID 11/13/22 10/30/24 04/04/24 08:00 History aspirin 81 mg tablet 81 mg PO DAILY 11/23/23 10/30/24 04/04/24 08:00 History sacubitril 24 mg-valsartan 26 mg 1 tablet PO BID 11/23/23 10/30/24 04/04/24 08:00 History tablet (Entresto) empagliflozin 10 mg tablet 10 mg PO DAILY 01/25/24 10/30/24 04/04/24 08:00 History (Jardiance) gabapentin 100 mg capsule 300 mg PO BID 04/05/24 10/30/24 04/04/24 17:00 History anastrozole 1 mg tablet 1 mg PO DAILY 08/28/24 10/30/24 Unknown History apixaban 5 mg tablet (Eliquis) 5 mg PO BID 08/28/24 10/30/24 Unknown History duloxetine 30 mg capsule,delayed 30 mg PO BID 08/28/24 10/30/24 Unknown History release sprinkle hydrocodone 5 mg-acetaminophen 325 1 tablet PO Q8H PRN pain 08/28/24 10/30/24 Unknown History mg tablet acetaminophen 650 mg 650 mg PO Q8H PRN pain 10/01/24 10/30/24 Unknown History tablet,extended release (Tylenol Arthritis Pain) metolazone 2.5 mg tablet 2.5 mg PO DAILY DIURETIC 10/01/24 10/30/24 Unknown History digoxin 125 mcg (0.125 mg) tablet 0.125 mg PO DAILY 10/30/24 10/30/24 Unknown History multivitamin-ferrous 1 tablet PO DAILY 10/30/24 10/30/24 Unknown History fumarate-folic acid 18 mg-400 mcg tablet (Centrum Complete) nitroglycerin 0.4 mg sublingual 0.4 mg sublingual ONCE 10/30/24 10/30/24 Unknown History tablet Allergies Allergy/AdvReac Type Severity Reaction Status Date / Time TARA Inhibitors AdvReac Mild Cough Verified 10/30/24 18:05 Review of Systems Review of Systems: All systems reviewed & are unremarkable except as noted in HPI and below PMFSH Past Medical History Medical History Hyperlipidemia Chronic kidney disease Nonischemic cardiomyopathy Echocardiogram 2014 demonstrate EF 30 35% with severe generalized left globe ventricular systolic dysfunction Hip osteoarthritis 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 Placed due to nonischemic cardiomyopathy and paroxysmal narrow complex arrhythmia H/O mastectomy Family History Family History Father , at age 81 Family history of coronary artery disease Social History Social History Social History: She was for 56 years but has been since approximately 2016. 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 She raised 3 children. Her oldest son of prostate cancer within the last year. Code status: DNR/DNI per patient request and confirmed with prior the records Surrogate decision maker: Son Smoking status: Never smoker Second hand tobacco smoke exposure: No Alcohol intake: never Substance use: never Substance use type: does not use Do You Feel Safe in your Home?: Yes Lack of Transportation: No Lack of Food: Never True Current Housing: I Have Housing Concerned About Future Housing: No Difficulty Paying Gas/Electric Bills: No Difficulty Paying for Meds: No Currently Unemployed: No Education: High School Diploma/GED Difficulty w/ Childcare or Family Care: No Spiritual care concerns: No Exam Const: General: healthy appearing, no acute distress and alert Nutritional Appearance: well nourished and obese Orientation/consciousness: patient oriented x3 Limitations: physical limitations HENMT: Head: normal to inspection Neck: Neck: normal visual inspection, no lymphadenopathy and no meningeal signs Chest: Chest palpation & inspection: normal inspection of the chest Resp: Effort & Inspection: normal respiratory effort Auscultation: clear to auscultation bilaterally Cardio: Rate: regular rate Rhythm: regular rhythm GI: GI Palp: Yes Soft to palpation Auscultation: normal bowel sounds Back/Spine/Pelvis: Back: no CVA tenderness Skin: Wounds: wounds noted Neuro: General: patient oriented x3, moves all extremities, no meningeal signs and no focal motor deficits Extrem: Other: Bruising and hematoma over the anterior surface of her left foot with a tender and painful large great toe on the left Course Course Emergency Course: patient with x-ray performed shows dislocation of the metatarsophalangeal joint of the 1st toe on the left and dorsal dislocation and post reduction x-ray shows anatomic alignment patient was leo-taped 1st and 2nd toe and put in a postop shoe. Patient did receive 2mg IM morphine for pain and after reassessment pain level has improved. Patient tolerated procedure well. Vital Signs Vital signs: Vital Signs Temperature 36.7 C 04/10/25 08:05 Pulse Rate 105 H 04/10/25 08:05 Respiratory Rate 20 04/10/25 08:05 Blood Pressure 106/68 04/10/25 08:05 Pulse Oximetry 97 04/10/25 08:05 Oxygen Delivery Room Air 04/10/25 08:05 Temperature 36.7 C 04/10/25 08:05 Pulse Rate 105 H 04/10/25 08:05 Respiratory Rate 20 04/10/25 08:05 Blood Pressure 106/68 04/10/25 08:05 Pulse Oximetry 97 04/10/25 08:05 Oxygen Delivery Room Air 04/10/25 08:05 Critical Care Time Critical Care Time Critical Care Time: No Discharge Plan Discharge Clinical Impression: Closed dislocation of toe Qualifiers: Encounter type: initial encounter Laterality: left Qualified Code(s): S93.105A - Unspecified dislocation of left toe(s), initial encounter Patient Disposition: SD Longterm/Asst Living Condition: Stable Instructions: Antibiotic Form, Closed Reduction (ED) Additional Instructions: advised to continue leo tape and postop shoe limited weight-bearing and can use Tylenol extra-strength 2 to 3 times daily as needed and follow with primary care physician within the next 3 to 5 days. Patient Language: Indian Prescriptions: No Action atorvastatin 10 mg Tablet 10 mg PO DAILY spironolactone 25 mg Tablet 25 mg PO BID Rx Instructions: Morning and noon montelukast 10 mg Tablet 10 mg PO DAILY aspirin 81 mg Tablet 81 mg PO DAILY Entresto 24-26 mg tablet 1 tablet PO BID Jardiance 10 mg tablet 10 mg PO DAILY furosemide 40 mg Tablet 40 mg PO BID Qty: 60 0RF duloxetine 30 mg capsule, delayed rel sprinkle 30 mg PO BID Eliquis 5 mg tablet 5 mg PO BID anastrozole 1 mg tablet 1 mg PO DAILY hydrocodone-acetaminophen 5-325 mg tablet 1 tablet PO Q8H PRN (Reason: pain) acetaminophen [Tylenol Arthritis Pain] 650 mg tablet extended release 650 mg PO Q8H PRN (Reason: pain) metolazone 2.5 mg tablet 2.5 mg PO DAILY nitroglycerin 0.4 mg tablet, sublingual 0.4 mg sublingual ONCE digoxin 125 mcg (0.125 mg) tablet 0.125 mg PO DAILY Centrum Complete 18-400 mg-mcg tablet 1 tablet PO DAILY gabapentin 100 mg capsule 300 mg PO BID carvedilol [Coreg] 12.5 mg Tablet 12.5 mg PO Q12HR Qty: 90 0RF Follow-up/Referrals: Gino Meyer MD [Primary Care Provider, Internal Medicine] Stand Alone Forms: Senior Living Discharge Time of Disposition: 09:09
[2025-04-10 09:32] VITALS: BP 106/68; PULSE 103; RESP 18; TEMP 37.1; O2SAT 98
== END 2025-04-10 09:34 ==
PROVIDERS: Emergency Provider Emergency Medicine; PCP Internal Medicine
DX: S93.105A Unspecified dislocation of left toe(s), initial encounter (principal); E78.5 Hyperlipidemia, unspecified; N18.9 Chronic kidney disease, unspecified; I25.10 Atherosclerotic heart disease of native coronary artery without angina pectoris; W19.XXXA Unspecified fall, initial encounter; Y92.129 Unspecified place in nursing home as the place of occurrence of the external cause
CPT/HCPCS: 28600; 73610; 73630; 96372; 99285; J2270

== ENCOUNTER 2025-04-20 10:46 | Outpatient (NON) | payer MEDICARE, MEDICAID, SELFPAY ==
[2025-04-20 11:03] LABS: Hematocrit 35.0 % (35.0-42.0); Hemoglobin 11.1 g/dL (11.7-13.8); Mean Corpuscular HGB Conc 31.7 g/dL (32-36); Mean Corpuscular Hemoglobin 29.5 pg (27.0-31.0); Mean Corpuscular Volume 93.1 fL (78.0-102.0); Platelet Count Result 285 K/mm3 (150-420); Red Blood Count 3.76 M/mm3 (4.20-5.40); White Blood Count 7.4 K/mm3 (4.8-10.8)
[2025-04-20 11:10] LABS: Alanine Aminotransferase 20 U/L (6-35); Albumin Level 3.7 g/dL (3.5-5.1); Alkaline Phosphatase 81 U/L (38-126); Anion Gap 13 mmol/L (4-12); Aspartate Amino Transferase 52 U/L (14-36); Bilirubin,Total 1.1 mg/dL (0.2-1.3); Blood Urea Nitrogen 42 mg/dL (7-17); Calcium 9.0 mg/dL (8.4-10.2); Carbon Dioxide 30 mmol/L (22-30); Chloride 91 mmol/L (98-107); Digoxin 1.3 ng/mL (0.8-2.0); Estimated Glomerular Filt Rate 30; Glucose 205 mg/dL (65-110); Magnesium 2.4 mg/dL (1.6-2.3); Osmolality Calculated 294 mOsm/kg (285-295); Potassium 4.2 mmol/L (3.4-5.0); Sodium 134 mmol/L (137-145); Total Protein 6.5 g/dL (6.3-8.2)
[2025-04-20 11:16] LABS: NT Pro B Type Natriuretic Pept 11600 pg/mL (19.9-100)
== END 2025-04-20 10:47 | disposition home or self-care (01) ==
LOC: CHSHH 10:49
PROVIDERS: PCP Internal Medicine; Visit Provider Internal Medicine
DX: I50.1 Left ventricular failure, unspecified (principal); I25.10 Atherosclerotic heart disease of native coronary artery without angina pectoris; R53.81 Other malaise; M79.672 Pain in left foot; I50.9 Heart failure, unspecified; I42.8 Other cardiomyopathies
CPT/HCPCS: 36415; 80053; 80162; 83735; 83880; 85027

== ENCOUNTER 2025-05-07 09:03 | Emergency (ER) | payer MEDICARE, MEDICAID, SELFPAY ==
[2025-05-07] VITALS (37 sets, daily range): BP systolic 82–138; BP diastolic 52–98; PULSE 101–124; RESP 10–28; TEMP 36.6–36.7; O2SAT 91–100
--- NOTE | ~2025-05-07 | CT_ITS ---
CT CERVICAL SPINE WITHOUT CONTRAST CLINICAL HISTORY: Fall, possible head injury/ AMS Technique: Axial images thoracic inlet to skull base Sagittal and coronal reformats. No contrast CT images acquired with automatic exposure control for dose reduction DLP: 161 mGy-cm Comparison: None Findings: No acute fracture or listhesis. Ankylosis C2-C3, and C4-5. Moderate degenerative changes. Prevertebral soft tissues within normal limits. Visualized lung apices: Nodular scar left side. Visualized thyroid: Unremarkable. No enlarged cervical nodes. Bilateral TMJ subluxation, likely age-related. IMPRESSION: 1. No C-spine fracture. 2. Left lung apical lesion or scar persists. Recommend PET/CT. Alternatively biopsy can be considered. At a minimum, short interval surveillance recommended. Reviewed, dictated and finalized at location R. IMPRESSION: 1. No C-spine fracture. 2. Left lung apical lesion or scar persists. Recommend PET/CT. Alternatively b iopsy can be considered. At a minimum, short interval surveillance recommended.
--- NOTE | ~2025-05-07 | XR_ITS ---
EXAMINATION: XR scapula LT DATE: 05/07/2025 11:11 INDICATION: Fall. TECHNIQUE: 2 views of left scapula were obtained. COMPARISON: CT 05/07/2025 FINDINGS: Alignment is normal. No fracture. There is moderate osteoarthritis of glenohumeral joint and acromioclavicular joint. There are surgical clips in left chest wall. IMPRESSION: 1. Polyarticular osteoarthritis. Reviewed, dictated and finalized at location E.
--- NOTE | ~2025-05-07 | CT_ITS ---
EXAMINATION: CT facial bones wo con DATE: 05/07/2025 11:11 INDICATION: Face injury. Fall. TECHNIQUE: Computed tomography (CT) of the facial bones and maxillofacial region was performed without intravenous contrast. Automated exposure control and iterative reconstruction technique were employed. The dose-length product was 290.42 mGy-cm. COMPARISON: Head CT 10/01/2024 FINDINGS: There are likely changes of ocular lens replacement surgeries. There is right cheek soft tissue swelling. There is mild leftward deviation of the nasal septum. There is mild mucosal thickening in the paranasal sinuses. The mastoid air cells are normal. There is severe cervical spondylosis. IMPRESSION: 1. No fracture. Reviewed, dictated and finalized at location E. IMPRESSION: 1. No fracture.
--- NOTE | ~2025-05-07 | CT_ITS ---
CT HEAD NON-CONTRAST Clinical History: Fall, possible head injury. AMS Comparison: 10/01/2024 Technique: Unenhanced axial images skull base to vertex Coronal, sagittal reformats CT images acquired with automatic exposure control for dose reduction DLP: Not listed in PACS Findings: Sulci, ventricles: Unremarkable. No intracerebral hemorrhage. No evidence acute territorial infarct. No mass effect, midline shift. Bony calvarium intact. Visualized paranasal sinuses: Clear. Mastoid air cells: Clear. IMPRESSION: 1. No acute intracranial findings. Reviewed, dictated and finalized at location R.
--- NOTE | ~2025-05-07 | CT_ITS ---
EXAMINATION: CT chest abdomen pelvis wo con DATE: 05/07/2025 10:08 INDICATION: Fall. Chest and abdominal injury. TECHNIQUE: Computed tomography (CT) of the chest, abdomen, and pelvis was performed without intravenous contrast. Automated exposure control and iterative reconstruction technique were employed. The dose-length product was 500.34 mGy-cm. COMPARISON: Chest CT 10/30/2024 FINDINGS: CHEST CT: There is mild emphysema. There is peripheral radiation fibrosis in left upper lobe. There is mild scarring at right lung apex. There is mild atelectasis bilaterally. There is septal thickening in the inferior lungs, consistent with mild pulmonary edema and/or mild chronic interstitial lung disease. A calcified right lung nodule and calcified right hilar lymph nodes are consistent with old granulomatous disease. There is a trace left pleural effusion. Cardiomegaly is noted. There are coronary artery calcifications. No pericardial effusion. There is a right chest wall pacer with leads in the right atrium and right ventricle. There are surgical changes of left breast. There is a small sliding hiatal h ernia. There are bridging endplate osteophytes at multiple levels in the spine, consistent with diffuse idiopathic skeletal hyperostosis (DISH). There is moderate thoracic spondylosis. ABDOMEN/PELVIS CT: There is a 15 mm cyst in the liver. There are gallstones in the gallbladder, which is normal in size. The spleen, pancreas, adrenal glands, and left kidney are normal. There is a 1.8 cm cyst in right kidney. There is a subcutaneous hematoma in right flank. Stool distends the rectum. There is diverticulosis of the colon without evidence of diverticulitis. The appendix is normal. There are no pathologically enlarged lymph nodes. There is no free intraperitoneal fluid. There is severe lumbar spondylosis. IMPRESSION: 1. Subcutaneous hematoma in right flank. 2. Septal thickening in the inferior lungs, consistent mild pulmonary edema and/or mild chronic interstitial lung disease. 3. Mild emphysema. 4. Stool distends the rectum. Reviewed, dictated and finalized at location E. IMPRESSION: 1. Subcutaneous hematoma in right flank. 2. Septal thickening in the inferior lungs, consistent mild pulmonary edema and /or mild chronic interstitial lung disease. 3. Mild emphysema. 4. Stool distends the rectum.
--- NOTE | 2025-05-07 09:13 | ED.FALL ---
HPI - Fall General Chief Complaint: Fall Stated Complaint: fall Time Seen by Provider: 05/07/25 09:12 Source: patient and family Mode of arrival: ambulatory Limitations: no limitations History of Present Illness HPI Narrative: Patient is an 85-year-old female with a fall going to the bathroom last night around midnight. She sustained multiple injuries. Head and neck included. She has bruising to the left scapula, nasal region and right flank. There is a large hematoma formation in the right flank region. She is on Eliquis. Patient just get out of a 10 day stay at [facility] for cardiac treatment. She has chronic edema. complaint: fall Onset (ago): day(s) (One) Fall from: standing Fall witnessed: no Place fall occurred: home and assisted/SNF Loss of consciousness: unsure Prolonged down time: unclear Symptoms prior to fall: none Context: tripped/slipped Location of injury: head, face, back and abdomen Severity: moderate Severity scale (1-10): 4 Quality: burning and sharp Associated symptoms (after fall): denies Related Data Home Medications ?Medication ?Instructions ?Recorded ?Confirmed ?Last Taken ?Type atorvastatin 10 mg tablet 10 mg PO DAILY 11/13/22 10/30/24 04/03/24 20:00 History montelukast 10 mg tablet 10 mg PO DAILY 11/13/22 10/30/24 04/03/24 20:00 History spironolactone 25 mg tablet 25 mg PO BID 11/13/22 10/30/24 04/04/24 08:00 History aspirin 81 mg tablet 81 mg PO DAILY 11/23/23 10/30/24 04/04/24 08:00 History sacubitril 24 mg-valsartan 26 mg 1 tablet PO BID 11/23/23 10/30/24 04/04/24 08:00 History tablet (Entresto) empagliflozin 10 mg tablet 10 mg PO DAILY 01/25/24 10/30/24 04/04/24 08:00 History (Jardiance) gabapentin 100 mg capsule 300 mg PO BID 04/05/24 10/30/24 04/04/24 17:00 History anastrozole 1 mg tablet 1 mg PO DAILY 08/28/24 10/30/24 Unknown History apixaban 5 mg tablet (Eliquis) 5 mg PO BID 08/28/24 10/30/24 Unknown History duloxetine 30 mg capsule,delayed 30 mg PO BID 08/28/24 10/30/24 Unknown History release sprinkle hydrocodone 5 mg-acetaminophen 325 1 tablet PO Q8H PRN pain 08/28/24 10/30/24 Unknown History mg tablet acetaminophen 650 mg 650 mg PO Q8H PRN pain 10/01/24 10/30/24 Unknown History tablet,extended release (Tylenol Arthritis Pain) metolazone 2.5 mg tablet 2.5 mg PO DAILY DIURETIC 10/01/24 10/30/24 Unknown History digoxin 125 mcg (0.125 mg) tablet 0.125 mg PO DAILY 10/30/24 10/30/24 Unknown History multivitamin-ferrous 1 tablet PO DAILY 10/30/24 10/30/24 Unknown History fumarate-folic acid 18 mg-400 mcg tablet (Centrum Complete) nitroglycerin 0.4 mg sublingual 0.4 mg sublingual ONCE 10/30/24 10/30/24 Unknown History tablet Allergies Allergy/AdvReac Type Severity Reaction Status Date / Time TARA Inhibitors AdvReac Mild Cough Verified 05/07/25 09:15 Review of Systems Review of Systems: All systems reviewed & are unremarkable except as noted in HPI and below Constitutional: Constitutional: Reports no additional constitutional complaints Eyes: Eyes: Reports no additional eye complaints ENT: Reports system reviewed and no additional complaints, except as documented Cardiovascular: Cardiovascular: Reports no additional cardiovascular complaints Respiratory: Respiratory: Reports no additional respiratory complaints Gastrointestinal: Gastrointestinal: Reports no additional gastrointestinal complaints Genitourinary: Genitourinary: Reports no additional female genitourinary complaints Musculoskeletal: Musculoskeletal: Reports no additional musculoskeletal complaints Integumentary/Breasts: Skin/Breast: Reports system reviewed and no additional complaints, except as docu Neurologic: Reports system reviewed and no additional complaints, except as documented Psychiatric: Psychiatric: Reports no additional psychiatric complaints Endocrine: Endocrine: Reports no additional endocrine complaints Hematologic/Lymphatic: Hematologic/Lymphatic: Reports no additional hematologic/lymphatic complaints Allergic/Immunologic: Allergic/Immunologic: Reports no additional allergic/immunologic complaints [facility] Past Medical History Medical History Hyperlipidemia Chronic kidney disease Nonischemic cardiomyopathy Echocardiogram 2014 demonstrate EF 30 35% with severe generalized left globe ventricular systolic dysfunction Hip osteoarthritis 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 Placed due to nonischemic cardiomyopathy and paroxysmal narrow complex arrhythmia H/O mastectomy Family History Family History Father , at age 81 Family history of coronary artery disease Social History Social History Social History: She was for 56 years but has been since approximately 2016. 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 She raised 3 children. Her oldest son of prostate cancer within the last year. Code status: DNR/DNI per patient request and confirmed with prior the records Surrogate decision maker: Son Smoking status: Never smoker Second hand tobacco smoke exposure: No Alcohol intake: never Substance use: never Substance use type: does not use Do You Feel Safe in your Home?: Yes Lack of Transportation: No Lack of Food: Never True Current Housing: I Have Housing Concerned About Future Housing: No Difficulty Paying Gas/Electric Bills: No Difficulty Paying for Meds: No Currently Unemployed: No Education: High School Diploma/GED Difficulty w/ Childcare or Family Care: No Spiritual care concerns: No Exam Const: General: healthy appearing Nutritional Appearance: well nourished Orientation/consciousness: patient oriented x3 Limitations: no limitations HENMT: Head: normal to inspection Ears: external ears normal Face/Nose/Sinus: Normal external nose present Eyes: Conjunctivae: conjunctivae normal Pupils: Equal, round and reactive pupils present EOM: EOMs intact bilaterally Neck: Neck: normal visual inspection Chest: Chest palpation & inspection: normal inspection of the chest Resp: Effort & Inspection: normal respiratory effort and not labored Auscultation: clear to auscultation bilaterally and no crackles Cardio: Rate: regular rate Rhythm: regular rhythm Heart sounds: no murmurs GI: Inspection: non-distended Auscultation: normal bowel sounds : General: Yes bladder normal to palpation Back/Spine/Pelvis: Back: no CVA tenderness Skin: General skin exam: No normal color Rashes: no rashes Wounds: no wounds Other: Ecchymosis of the face around the nasal region, right flank with a large hematoma and left upper back around scapula Neuro: General: patient oriented x3, moves all extremities, no meningeal signs, no focal motor deficits and CN's II-XI intact bilaterally Other: Fast exam negative, NIH is 0, GCS is 15 Extrem: General: normal to inspection Psych: Mental Status: mental status grossly normal Affect: normal affect Attitude: cooperative Course Vital Signs Vital signs: Vital Signs Temperature 36.7 C 05/07/25 09:03 Pulse Rate 110 H 05/07/25 09:03 Respiratory Rate 16 05/07/25 09:03 Blood Pressure 87/58 L 05/07/25 09:03 Pulse Oximetry 100 05/07/25 09:03 Oxygen Delivery Room Air 05/07/25 09:03 Temperature 36.7 C 05/07/25 09:03 Pulse Rate 102 H 05/07/25 12:46 Respiratory Rate 18 05/07/25 12:46 Blood Pressure 95/56 L 05/07/25 12:45 Pulse Oximetry 96 05/07/25 12:46 Oxygen Delivery Room Air 05/07/25 09:03 MDM - Fall MDM Narrative Medical decision making narrative: Patient is an 85-year-old female with ground level mechanical fall last night and sustained multiple injuries. We will do CT scans and check labs with the urine. EKG. We will transfer patient for higher level medical care to see a senior technical architect and a phonograph mechanic at this time. She has an elevated creatinine and needs fluid balance which requires specialist to make decisions on medication. We will not start fluids at this time until she sees specialists as she is stable. Will not start Lasix at this time as she is stable and she can see specialist for decisions. Lab Data Attestation: I reviewed the patient's lab results. 05/07/25 09:31 05/07/25 09:31 Labs: Lab Results 05/07/25 05/07/25 Range/Units 09:21 09:31 WBC 9.3 (4.8-10.8) K/mm3 RBC 4.57 (4.20-5.40) M/mm3 Hgb 13.0 (11.7-13.8) g/dL Hct 40.9 (35.0-42.0) % MCV 89.5 (78.0-102.0) fL MCH 28.4 (27.0-31.0) pg MCHC 31.8 L (32-36) g/dL RDW 17.0 H (11.6-14.4) % Plt Count 270 (150-420) K/mm3 MPV 9.6 (9.2-11.8) fl Immature Gran % (Auto) 0.4 H (0.0-0.0) % Neut % (Auto) 82.8 H (50.0-70.0) % Lymph % (Auto) 4.8 L (18.0-42.0) % Thomas % (Auto) 8.3 (2.0-11.0) % Eos % (Auto) 3.1 (1.0-6.0) % Baso % (Auto) 0.6 (0.0-1.0) % Lymph # (Auto) 0.45 L (1.10-4.50) K/mm3 Thomas # (Auto) 0.77 (0.10-0.90) K/mm3 Eos # (Auto) 0.29 (0.02-0.50) K/mm3 Baso # (Auto) 0.06 (0.00-0.10) K/mm3 Abs Immat Gran (auto) 0.04 H (0.00-0.00) K/mm3 Absolute Neuts (auto) 7.68 H (1.70-7.20) K/mm3 Absolute Nucleated RBC 0.00 (0.00-0.00) K/mm3 Nucleated RBC % 0.0 (0-0.0) % PT 11.8 (9.50-12.1) Seconds INR 1.1 APTT 27.8 (23.9-30.70) Sec Sodium 134 L (137-145) mmol/L Potassium 4.4 (3.4-5.0) mmol/L Chloride 90 L (98-107) mmol/L Carbon Dioxide 27 (22-30) mmol/L Anion Gap 17 H (4-12) mmol/L BUN 71 H D (7-17) mg/dL Creatinine 2.48 H (0.7-1.0) mg/dL Estim Creat Clear Calc 14 ml/min Estimated GFR 19 L (59 - ) Glucose 207 H (65-110) mg/dL Calculated Osmolality 304 H (285-295) mOsm/kg Calcium 9.8 (8.4-10.2) mg/dL Magnesium 2.6 H (1.6-2.3) mg/dL Total Bilirubin 0.8 (0.2-1.3) mg/dL AST 39 H (14-36) U/L ALT 16 (6-35) U/L Alkaline Phosphatase 93 (38-126) U/L Total Creatine Kinase 190 H (30-135) U/L Troponin I 0.079 H* (0.000-0.034) ng/mL NT-Pro-B Natriuret Pep 5700 H (19.9-100) pg/mL Total Protein 8.8 H (6.3-8.2) g/dL Albumin 4.4 (3.5-5.1) g/dL Imaging Data Attestation: I personally reviewed and interpreted this imaging study as follows: Radiologist's impression: CT scan of the head was negative for acute process CT scan of the cervical spine shows IMPRESSION: 1. No C-spine fracture. 2. Left lung apical lesion or scar persists. Recommend PET/CT. Alternatively biopsy can be considered. At a minimum, short interval surveillance recommended. CT scan of chest abdomen and pelvis without contrast due to creatinine shows IMPRESSION: 1. Subcutaneous hematoma in right flank. 2. Septal thickening in the inferior lungs, consistent mild pulmonary edema and/or mild chronic interstitial lung disease. 3. Mild emphysema. 4. Stool distends the rectum. CT scan facial bones is negative for acute process X-ray left scapula was negative for acute process ECG Data EKG #1: Attestation: I personally reviewed and interpreted this ECG as follows: ECG completion date: 05/07/25 ECG completion time: 09:28 EKG Interpretation: tachycardia, sinus rhythm, PVCs, non-specific ST changes, widened QRS, normal QT and right axis Discharge Plan Discharge Clinical Impression: Fluid imbalance, Fall, Acute exacerbation of CHF (congestive heart failure), Pulmonary edema, Edema, Hematoma, BREEZY (acute kidney injury), High anion gap, Elevated troponin, Rhabdomyolysis, Acute dehydration Patient Disposition: Acute Care Hospital Condition: Stable Patient Language: Kosovan Prescriptions: No Action atorvastatin 10 mg Tablet 10 mg PO DAILY spironolactone 25 mg Tablet 25 mg PO BID Rx Instructions: Morning and noon montelukast 10 mg Tablet 10 mg PO DAILY aspirin 81 mg Tablet 81 mg PO DAILY Entresto 24-26 mg tablet 1 tablet PO BID Jardiance 10 mg tablet 10 mg PO DAILY furosemide 40 mg Tablet 40 mg PO BID Qty: 60 0RF duloxetine 30 mg capsule, delayed rel sprinkle 30 mg PO BID Eliquis 5 mg tablet 5 mg PO BID anastrozole 1 mg tablet 1 mg PO DAILY hydrocodone-acetaminophen 5-325 mg tablet 1 tablet PO Q8H PRN (Reason: pain) acetaminophen [Tylenol Arthritis Pain] 650 mg tablet extended release 650 mg PO Q8H PRN (Reason: pain) metolazone 2.5 mg tablet 2.5 mg PO DAILY nitroglycerin 0.4 mg tablet, sublingual 0.4 mg sublingual ONCE digoxin 125 mcg (0.125 mg) tablet 0.125 mg PO DAILY Centrum Complete 18-400 mg-mcg tablet 1 tablet PO DAILY gabapentin 100 mg capsule 300 mg PO BID carvedilol [Coreg] 12.5 mg Tablet 12.5 mg PO Q12HR Qty: 90 0RF Follow-up/Referrals: Gino Meyer MD [Primary Care Provider, Internal Medicine] Time of Disposition: 10:47
--- NOTE | 2025-05-07 09:21 | ECG_ITS ---
Test Date: 2025-05-07 09:30:16 Measurements Intervals [place] Rate: 104 P: 74 MT: 168 QRS: 261 QRSD: 158 T: 48 QT: 389 QTc: 512 Interpretive Statements SINUS TACHYCARDIA WITH FREQUENT VENTRICULAR PREMATURE COMPLEXES POSSIBLE RIGHT ATRIAL ENLARGEMENT [0.25mV P-WAVE] RIGHT AXIS DEVIATION [QRS AXIS > 100] INTRAVENTRICULAR CONDUCTION DELAY [130+ ms QRS DURATION] ABNORMAL ECG Compared to ECG 10/30/2024 17:28:52 Ventricular premature complex(es) now present Electronically Signed On 05-07-2025 13:08:46 CDT by Edgar Rios M.D.
[2025-05-07 09:35] LABS: Hematocrit 40.9 % (35.0-42.0); Hemoglobin 13.0 g/dL (11.7-13.8); Immature Granulocyte Percent A 0.4 % (0.0-0.0); Lymphocytes Absolute Auto 0.45 K/mm3 (1.10-4.50); Mean Corpuscular HGB Conc 31.8 g/dL (32-36); Mean Corpuscular Hemoglobin 28.4 pg (27.0-31.0); Mean Corpuscular Volume 89.5 fL (78.0-102.0); Nucleated Red Blood Cells Absolute Auto 0.00 K/mm3 (0.00-0.00); Nucleated Red Blood Cells Perc 0.0 % (0-0.0); Platelet Count Result 270 K/mm3 (150-420); Red Blood Count 4.57 M/mm3 (4.20-5.40); White Blood Count 9.3 K/mm3 (4.8-10.8)
--- OUTSIDE RECORDS SUMMARY | 2025-05-07 09:36 | XMS_ITS | Clinical Summary ---
Author Organization [facility] Address [address] [place] [address] Care Team Providers Care Event Representative Name Role Phone Gino Meyer MD Primary Care Provider [phone] Christel Lu MD Unavailable Stella Llanos MD Unavailable Allergies No known active allergies [...] 1 tablet (10 mg total) by mouth nightly at bedtime. 04/18/20 22 Active multi vitamin/minerals (THERA-M ENHANCED) tablet Take 1 tablet by mouth daily. Active anastrozole (ARIMIDEX) 1 MG tablet Take 1 tablet by mouth daily. 11/24/19 23 Active empagliflozin (JARDIANCE) 10 MG tablet Take 1 tablet (10 mg total) by mouth daily. 30 tablet 12/06/19 23 Active atorvastatin (LIPITOR) 10 MG tablet TAKE ONE TABLET BY MOUTH NIGHTLY AT BEDTIME 30 tablet 11 12/31/19 23 Active digoxin (LANOXIN) 0.125 MG tablet Take 1 tablet (0.125 mg total) by mouth daily. 05/30/20 23 Active HYDROcodone-acet aminophen (NORCO) 5-325 MG tablet Take by mouth 3 (three) times daily. 1/2 tablet in the morning, 1/2 tablet in the afternoon, 1 tablet at bedtime 07/20/20 24 Active gabapentin (NEURONTIN) 300 MG capsule Take 2 capsules (600 mg total) by mouth 3 (three) times daily. Active DULoxetine (CYMBALTA) 30 MG capsule Take 1 capsule (30 mg total) by mouth 2 (two) times daily. 03/11/20 25 Active acetaminophen (TYLENOL) 325 MG tablet Take 2 tablets (650 mg total) by mouth 3 (three) times daily as needed for Pain. Active metOLazone (ZAROXOLYN) 5 MG tablet Take 1 tablet (5 mg total) by mouth daily as needed (Worsening swelling or weight gain more than 3 pounds). 30 tablet 04/06/20 25 Active furosemide (LASIX) 20 MG tablet Take 3 tablets (60 mg total) by mouth 2 (two) times daily. 30 tablet 04/06/20 25 Active ELIQUIS 5 MG tabletIndication s:Atrial fibrillation ([facility]) 1 TAB BY MOUTH 2 TIMES DAILY 60 tablet 2 05/03/20 25 Active ELIQUIS 5 MG tabletIndication s:Atrial fibrillation ([facility]) 1 TAB BY MOUTH 2 TIMES DAILY 60 tablet 2 02/11/20 25 025 Discontinued midodrine (PROAMATINE) 5 MG tablet Take 1 tablet (5 mg total) by mouth 3 (three) times daily with meals for 30 days. 90 tablet 04/06/20 25 025 Active Problems Problem Noted Date Diagnosed Date CHF (congestive heart failure) ([facility]) 03/29/2025 CHF exacerbation ([facility]) 03/29/2025 Breast cancer ([facility]) 07/23/2023 S/P coronary artery stent placement 03/18/2021 Mixed hyperlipidemia 07/10/2017 Stage 2 chronic kidney disease 06/14/2014 Non-ischemic cardiomyopathy ([facility]) AICD (automatic cardioverter/defibrillator) pres ent Hypertension Coronary artery disease Systolic heart failure ([facility]) Resolved Problems Problem Noted Date Diagnosed Date Resolved Date Hypotension due to hypovolemia 04/25/2022 06/13/2023 Obesity (BMI 30-39.9) 07/10/20172021 Encounters Date Type Department Care Team Description 05/05/2025 Telephone [facility] [address] [place] [address] Stella Llanos MD Appointment Reminder 05/03/2025 Telephone [facility] [address] [place] [address] Christel Lu MD Appointment Request 03/31/2025 Orders Only [facility] [address] [place] [address] Stella Llanos MD 03/30/2025 Telephone [facility] [address] [place] [address] Stella Llanos MD Reschedule 03/29/2025 6:33 PM CDT - 04/06/2025 1:56 PM CDT Hospital Encounter [facility] [address] [place] [address] Diego Rojas MD Kim, Kwang Jun, MD Markapuram, Srikanth, MD Subramaniyam, Rajamurugan R, MD Rangu, Venu Mohan, MD Discharge Disposition: Home or Self Care (Routine Discharge) 03/29/2025 11:31 AM CDT - 03/29/2025 5:53 PM CDT Emergency [facility] [address] [place] [address] Jeff Washington, DO Breathing Problem Discharge Disposition: Higher Level of Care 03/29/2025 10:51 AM CDT - 03/29/2025 11:30 AM CDT Hospital Encounter [facility] [address] [place] [address] Stella Llanos MD Discharge Disposition: Home or Self Care (Routine Discharge) 03/29/2025 Travel 03/26/2025 Telephone [facility] [address] [place] [address] Stella Llanos MD Appointment Reminder 03/16/2025 Orders Only [facility] [address] [place] [address] Stella Llanos MD 03/08/2025 9:30 AM CDT Allied Health/Nurse Visit [facility] [address] [place] [phone] [phone] Christel Lu MD In Clinic Device Check 03/08/2025 9:30 AM CDT Office Visit [facility] [address] [place] [phone] Maciel Wang, PATanishaC Follow Up; Cardiomyopathy; Other (ICD management.) 03/08/2025 Travel 03/05/2025 Telephone [facility] [address] [place] [phone] Christel Lu MD Appointment Reminder 02/16/2025 Orders Only [facility] [address] [place] [address] Stella Llanos MD from Last 3 Months Immunizations Immunization Administration Dates Next Due Fluad influenza vaccine, [...] drink = 0.6 oz pur e alcohol) [facility] Utilities Answer Date Recorded In the past 12 months has e electric, gas, oil, or water company threatened to shut off services in your home? No 03/29/2025 Humiliation, Afraid, Rape, and Kick questionnair e Answer Date Recorded Within the last year, have y ou been afraid of your partner or ex-partner? No 03/29/2025 Within the last year, have y ou been humiliated or emotionally abused in other ways by your partner or ex-partner? No Within the last year, have y ou been kicked, hit, slapped, or otherwise physically hurt by your partner or ex-partner? No 03/29/2025 Within the last year, have y ou been raped or forced to have any kind of sexual activity by your partner or ex-partner? No 03/29/2025 Overall Financial Resource Strain (CARDIA) Answe r Date Recorded How hard is it for you to pa y for the very basics like food, housing, medical care, and heating? Very hard 03/29/2025 Hunger Vital Sign Answer Date Recorded Within the past 12 months, y ou worried that your food would run out before you got the money to buy more. Never true 03/29/20 25 Within the past 12 months, t he food you bought just didn't last and you didn't have money to get more. Never true 03/29/2025 PRAPARE - Transportation Answer Date Re corded In the past 12 months, has l ack of transportation kept you from medical appointments or from getting medications? No 03/19 In the past 12 months, has l ack of transportation kept you from meetings, work, or from getting things needed for daily living? No 03/29/2025 Housing Stability Vital Sign Answer Ramakrishna e [...] place to sleep or slept in a residential (including now)? Yes 11/29/2022 Housing Stability Vital Sign Answer Ramakrishna e Recorded In the last 12 months, was t here a time when you were not able to pay the mortgage or rent on time? No 03/29/2025 In the past 12 months, how m any times have you moved where you were living? 0 03/29/2025 At any time in the past 12 m [facility], were you homeless or living in a residential (including now)? No 03/29/2025 Comments No Sex and Gender Information Value Date Recorded Sex Assigned at Female 09/01/2024 10:13 AM SAW OFF[employer]ER Legal Sex Female 10:21 PM CDT Gender Identity Female 03/29/2025 8:02 PM CDT Sexual Orientation Not on file Occupation Industry Job Start Date Job End Date retired Not on file Not on file Not on file Last Filed Vital Signs Vital Sign Reading Time Taken Comments Blood Pressure 143/58 04/06/2025 8:33 AM CDT Pulse 102 04/06/2025 8:33 AM CDT Temperature 36.4 C (97.6 F) 04/06/2025 8:33 AM CDT Respiratory Rate 20 04/06/2025 8:33 AM CDT Oxygen Saturation 96% 04/06/2025 8:33 AM CDT Inhaled Oxygen Concentration - - Weight 81.5 kg (179 lb 11.2 oz) 04/06/2025 5:32 AM CDT Height 152.4 cm (5') 03/29/2025 8:00 PM CDT Body Mass Index 35.1 03/29/2025 8:00 PM CDT Plan of Treatment Upcoming Encounters Date Type Department Care Team (Late st Contact Info) Description 05/17/2025 2:00 PM CDT Office Visit [facility] [address] [place] [address] Stella Llanos MD [address] [place] [address] 06/14/2025 1:00 AM CDT Allied Health/Nurse [facility] [address] [place] [phone] Christel Lu MD [address] [place] [address] 11/02/2025 1:30 PM CDT Office Visit [facility] [address] [place] [address] Maciel Wang, PA-C [address] [place] [address] 11/02/2025 1:30 PM CDT [facility] [address] [place] [phone] Christel Lu MD [address] [place] [address] Health Maintenance Due Date Last Done Comments ASCVD Statin 1941 DTaP, Tdap and Td Vaccines ( 1 - Tdap) 1960 Zoster Vaccines (1 of 2) 1960 Annual Medicare Wellness Visit 2006 Dexa Scan (General) 2006 RSV Immunization or 60+ Years (1 - 1-dose 75+ series) 2016 COVID-19 Vaccine (3 - Pfizer risk series) 11/10/2020 10/13/2020, 09/22/2020 ASCVD LDL 03/27/2022 03/27/2021 Pneumococcal Vaccine: 50+ Years Completed 06/02/2019, 04/09/2017 Meningococcal B Vaccine Aged Out No l onger eligible based on patient's age to complete this topic Meningococcal Vaccine Aged Out No anette nishi eligible based on patient's age to complete this topic RSV Immunizations Under 20 Months Aged Out No longer eligible b ased on patient's age to complete this topic Goals Goal Patient Goal Type Associated Problems Recent Progress Patient-Stated? Author Safety Patient/family will have appropriate support at home upon discharge Lifestyle No Merissa Santiago, RN Safety Patient/family will have appropriate support at home upon discharge Lifestyle No Elina Lambert RN Medical Devices Implanted Type Area Petrology Teacher Device Identifier Shelf Expiration Date Model / Serial / Lot [employer] Vigilant El Dr-08/30/2023 Implanted:Qty: 1 on 08/30/2023 by Christel Lu MD ICD [employer] 12/28/2024 [id number] / [id number] / Description:DX: NICM MRI Conditional under following conditions: Static magnetic field of 1.5 T or 3 T, Max spatial gradient field of 5000 Gauss/cm or less, Max slew rate 200 T/m/s , WHOLE BODY TERESO OF 2 W/KG OR LESS, HEAD TERESO 3.2 W/KG OR LESS , Supine or Prone only [employer] Ra-08/30/2023 Implanted:Qty: 1 on 08/30/2023 by Christel Lu MD Lead Implant [employer] 01/04/2025 [id number] / [id number] / [employer] Rv-08/30/2023 Implanted:Qty: 1 on 08/30/2023 by Christel Lu MD Lead Implant [employer] 04/08/2024 [id number] / [id number] / Cv Synergy Xd Jose-Lad- 021 Implanted:02/18 by Russell Bentley MD (Quantity not on file) Stent Coronary LAD [employer] 10/05/2022 [id number] / / [id number] Cv [employer] Xd Jose-[place]-2020 Implanted:02/18 by Russell Bentley MD (Quantity not on file) Stent Coronary LAD [employer] 11/17/2022 [id number] / / [id number] Procedures Procedure Name Priority Date/Time Associated Diagnosis Comments CBC W/DIFF AUTOMATED Routine 04/06/2025 3:47 AM CDT BASIC METABOLIC PANEL Routine 04/06/2025 3:47 AM CDT CLOSTRIDIUM DIFFICILE Nurse Collected Priority 04/06/2025 1:17 AM CDT BASIC METABOLIC PANEL TIMED 04/05/2025 3:39 PM CDT BASIC METABOLIC PANEL Routine 04/05/2025 9:11 AM CDT BASIC METABOLIC PANEL Routine 04/05/2025 4:02 AM CDT LACTIC ACID TIMED 04/04/2025 9:01 AM CDT PRO-BRAIN NATRIURETIC PEPTIDE Routine 04/04/2025 9:01 AM CDT BASIC METABOLIC PANEL Routine 04/04/2025 9:01 AM CDT US RETROPERITONEAL COMP Today 04/03/2025 9:47 AM CDT POCT GLUCOSE - DOCKED DEVICE Routine 04/03/2025 6:07 AM CDT CBC W/DIFF AUTOMATED Routine 04/03/2025 4:06 AM CDT PHOSPHORUS, INORGANIC PHOSPHATE Routine 04/03/2025 4:06 AM CDT MAGNESIUM Routine 04/03/2025 4:06 AM CDT COMPREHENSIVE METABOLIC PANEL Routine 04/03/2025 4:06 AM CDT POCT GLUCOSE - DOCKED DEVICE Routine 04/02/2025 9:13 PM CDT HC URINALYSIS AUTO W/MICRO Nurse Collected Priority 04/02/2025 5:57 PM CDT POCT GLUCOSE - DOCKED DEVICE Routine 04/02/2025 11:34 AM CDT TYPE & SCREEN STAT 04/02/2025 5:20 AM CDT COMPREHENSIVE METABOLIC PANEL STAT 04/02/2025 5:20 AM CDT CBC W/DIFF AUTOMATED STAT 04/02/2025 5:20 AM CDT CBC W/DIFF AUTOMATED Routine 04/02/2025 3:26 AM CDT PHOSPHORUS, INORGANIC PHOSPHATE Routine 04/02/2025 3:26 AM CDT MAGNESIUM Routine 04/02/2025 3:26 AM CDT COMPREHENSIVE METABOLIC PANEL Routine 04/02/2025 3:26 AM CDT POCT GLUCOSE - DOCKED DEVICE Routine 04/01/2025 8:09 PM CDT POCT GLUCOSE - DOCKED DEVICE Routine 04/01/2025 11:29 AM CDT LACTIC ACID W REFLEX (SEPSIS) Routine 04/01/2025 11:20 AM CDT POCT GLUCOSE - DOCKED DEVICE Routine 04/01/2025 8:38 AM CDT POCT GLUCOSE - DOCKED DEVICE Routine 04/01/2025 6:33 AM CDT PHOSPHORUS, INORGANIC PHOSPHATE Routine 04/01/2025 3:00 AM CDT COMPREHENSIVE METABOLIC PANEL Routine 04/01/2025 3:00 AM CDT MAGNESIUM Routine 04/01/2025 3:00 AM CDT CBC W/DIFF AUTOMATED Routine 04/01/2025 3:00 AM CDT POCT GLUCOSE - DOCKED DEVICE Routine 03/31/2025 9:10 PM CDT BASIC METABOLIC PANEL TIMED 03/31/2025 8:20 PM CDT POCT GLUCOSE - DOCKED DEVICE Routine 03/31/2025 5:59 PM CDT USV VAST TEAM MIDLINE INSERT >5YR Today 03/31/2025 4:25 PM CDT POCT GLUCOSE - DOCKED DEVICE Routine 03/31/2025 2:32 PM CDT PROTHROMBIN TIME, VENOUS Routine 03/31/2025 2:30 PM CDT CBC W/DIFF AUTOMATED Routine 03/31/2025 2:30 PM CDT CALCIUM, IONIZED Routine 03/31/2025 2:30 PM CDT HEPATIC FUNCTION PANEL Routine 03/31/2025 2:30 PM CDT THYROID STIM HORMONE TSH Routine 03/31/2025 2:30 PM CDT PHOSPHORUS, INORGANIC PHOSPHATE Routine 03/31/2025 2:30 PM CDT LACTIC ACID Routine 03/31/2025 2:30 PM CDT MAGNESIUM Routine 03/31/2025 2:30 PM CDT TROPONIN, QUANT Routine 03/31/2025 2:30 PM CDT BASIC METABOLIC PANEL Routine 03/31/2025 2:30 PM CDT HC MRSA AMP Nurse Collected Priority 03/31/2025 2:25 PM CDT USE ECHOCARDIOGRAM W CON Today 03/30/2025 10:35 AM CDT TROPONIN, QUANT TIMED 03/30/2025 12:45 AM CDT BASIC METABOLIC PANEL Routine 03/30/2025 12:45 AM CDT CBC W/DIFF AUTOMATED Routine 03/30/2025 12:45 AM CDT ECG 12-LEAD Routine 03/29/2025 7:44 PM CDT PARTIAL THROMBOPLASTIN TIME,PTT STAT 03/29/2025 7:11 PM CDT PROTHROMBIN TIME, VENOUS STAT 03/29/2025 7:11 PM CDT TROPONIN, QUANT TIMED 03/29/2025 7:11 PM CDT TROPONIN, QUANT STAT 03/29/2025 3:35 PM CDT RESP SYNCYTIAL VIRUS STAT 03/29/2025 1:28 PM CDT INFLUENZA A & B STAT 03/29/2025 1:[address] HEAD WO CON STAT 03/29/2025 12:35 PM CDT XR CHEST PORTABLE STAT 03/29/2025 12:24 PM CDT HEPARIN, ANTI XA, UFH STAT 03/29/2025 12:08 PM CDT PRO-BRAIN NATRIURETIC PEPTIDE STAT 03/29/2025 12:08 PM CDT LACTIC ACID W REFLEX (SEPSIS) STAT 03/29/2025 12:08 PM CDT TROPONIN, QUANT STAT 03/29/2025 12:08 PM CDT PROTHROMBIN TIME, VENOUS STAT 03/29/2025 12:08 PM CDT PARTIAL THROMBOPLASTIN TIME,PTT STAT 03/29/2025 12:08 PM CDT D-DIMER, QUANTITATIVE STAT 03/29/2025 12:08 PM CDT COMPREHENSIVE METABOLIC PANEL STAT 03/29/2025 12:08 PM CDT CBC W/DIFF AUTOMATED STAT 03/29/2025 12:08 PM CDT ECG 12-LEAD Routine 03/29/2025 11:41 AM CDT Essential (primary) hypertension Hyperlipidemia, mixed ECG 12-LEAD STAT 03/29/2025 11:02 AM CDT LIPID PANEL Routine 03/27/2021 10:35 AM CDT ocean transportation intermediary use of drug Hyperlipidemia, unspecified hyperlipidemia type from Last 3 Months or Most Recently Relevant to Health Maintenance Results * (ABNORMAL) BASIC METABOLIC PANEL (04/06/2025 3:47 AM CDT) Only the most recent of8 resultswithin the time period is included. SODIUM S/P/B 131(L) 136 - 145 MMOL/L 04/06/2025 4:23 AM CDT [facility] POTASSIUM S/P/B 4.0 3.5 - 5.1 MMOL/L 04/06/2025 4:23 AM CDT [facility] CHLORIDE S/P/B 99 97 - 115 MMOL/L 04/06/2025 4:23 AM CDT [facility] CO2 22.6 21.0 - 32.0 MMOL/L 04/06/2025 4:23 AM CDT [facility] GLUCOSE 130(H) 74 - 106 MG/DL 04/06/2025 4:23 AM CDT [facility] BUN 60(H) 7 - 18 MG/DL 04/06/2025 4:23 AM CDT [facility] CREATININE S/P/B 1.71(H) 0.55 - 1.02 MG/DL 04/06/2025 4:23 AM CDT [facility] CALCIUM S/P/B 9.0 8.5 - 10.1 MG/DL 04/06/2025 4:23 AM CDT [facility] ANION GAP 9.4 2.0 - 10.0 MMOL/L 04/06/2025 4:23 AM CDT [facility] OSMOLALITY (CALC) 291 MOSM/KG 025 4:23 AM CDT [facility] Comment:REFERENCE RANGE NOT ESTABLISHED GFR ESTIMATE 29(L) >90 ML/MIN/1. 73 M2 04/06/2025 4:23 AM CDT [facility] GFR NOTES GFR REFERENCE S: 04/06/2025 4:23 AM CDT [facility] Comment: THE ESTIMATED GFR IS CALCULATED USING THE 2020 CKD-EPI EQUATION. THE FOLLOWING CATEGORIES FOR GRADING RENAL FUNCTION ARE RECOMMENDED BY THE INTERNATIONAL SOCIETY OF NEPHROLOGY (KDIGO 2012 CLINICAL PRACTICE GUIDELINE). G1,NORMAL OR HIGH: >89 ml/min/1.73 m2 G2,MILDLY DECREASED: 60-89 ml/min/1.73 m2 G3A,MILDLY TO MODERATELY DECREASED: 45-59 ml/min/1.73 m2 G3B,MODERATELY TO SEVERELY DECREASED: 30-44 ml/min/1.73 m2 G4,SEVERELY DECREASED: 15-29 ml/min/1.73 m2 G5,KIDNEY FAILURE: <15 ml/min/1.73 m2 04/06/2025 3:47 AM CDT Richi Richardson MD LABORATORY Final Res ult [facility] [address] [place] [address], [id number] * (ABNORMAL) CBC W/DIFF AUTOMATED (04/06/2025 3:47 AM CDT) Only the most recent of8 resultswithin the time period is included. WBC 6.51 4.00 - 10.80 x10'3/uL 04/06/2025 3:55 AM CDT [facility] RBC 3.86(L) 4.10 - 5.40 x10'6/uL 04/06/2025 3:55 AM CDT [facility] HGB 11.7(L) 12.0 - 16.0 G/DL 04/06/2025 3:55 AM CDT [facility] HCT 36.5 36.0 - 47.0 % 04/06/2025 3:55 AM CDT [facility] MCV 94.6 78.0 - 100.0 FL 04/06/2025 3:55 AM CDT [facility] MCH 30.3 27.0 - 31.0 PG 04/06/2025 3:55 AM CDT [facility] MCHC 32.1(L) 33.0 - 36.0 G/DL 04/06/2025 3:55 AM CDT [facility] RDW 16.2(H) 11.5 - 14.5 % 04/06/2025 3:55 AM CDT [facility] PLT 196 150 - 350 x10'3/uL 04/06/2025 3:55 AM CDT [facility] MPV 10.4 7.4 - 10.4 FL 04/06/2025 3:55 AM CDT [facility] DIFFERENTIAL TYPE AUTOMATED DIFFERENTIAL 04/06/2025 3:55 AM CDT [facility] SEG NEUTROPHILS 85.8 % 3:55 AM CDT [facility] LYMPHOCYTES 3.2 % 04/06/2025 3:55 AM CDT [facility] MONOCYTES 8.4 % 04/06/2025 3:55 AM CDT [facility] EOSINOPHILS 0.6 % 04/06/2025 3:55 AM CDT [facility] BASOPHILS 0.2 % 04/06/2025 3:55 AM CDT [facility] IMMATURE GRANS % 0.3 % 04/06/20 3:55 AM CDT [facility] ABS. NEUTROPHILS 5.68 1.60 - 8.30 x10'3/uL 04/06/2025 3:55 AM CDT [facility] ABS. LYMPHOCYTES 0.21(L) 0.80 - 4.70 x10'3/uL 04/06/2025 3:55 AM CDT [facility] ABS. MONOCYTES 0.55 0.00 - 1.50 x10'3/uL 04/06/2025 3:55 AM CDT [facility] ABS. EOSINOPHILS 0.04 0.00 - 0.40 x10'3/uL 04/06/2025 3:55 AM CDT [facility] ABS. BASOPHILS 0.01 0.00 - 0.20 x10'3/uL 04/06/2025 3:55 AM CDT [facility] ABS. IMMATURE GRANULOCYTES 0.02 0.00 - 0.03 x10'3/uL 04/06/2025 3:55 AM CDT [facility] ABS. NUCLEATED RBC'S 0.10(H) 0.00 - 0.01 x10'3/uL 04/06/2025 3:55 AM CDT [facility] NRBC % 1.5 % 04/06/2025 3:55 AM CDT [facility] 04/06/2025 3:47 AM CDT Richi Richardson MD LABORATORY Final Res ult [facility] [address] [place] [address], [id number] * CLOSTRIDIUM DIFFICILE (04/06/2025 1:17 AM CDT) GDH ANTIGEN NEGATIVE NEGATIVE 04/06/2025 2:15 AM CDT [facility] C DIFFICILE TOXIN A&B (STOOL) NEGATIVE NEGATIVE 04/06/2025 2:15 AM CDT [facility] COMMENT GDH NEGATIVE/TOXI N A & B NEGATIVE: NEGATIVE FOR TOXIGENIC C. DIFFICILE. GDH NEGATIVE/TOXI N A & B NEGATIVE: NEGATIVE FOR TOXIGENIC C. 04/06/2025 2:15 AM CDT [facility] STOOL SPECIMEN / Unknown 04/06/2025 1:17 AM CDT us Richi Richardson MD BODY FLUIDS AND STOOLS OR DERABLES Final Result Performing Organization Address City/[facility]/ZIP Co de Phone Number [facility] [address] [place] [address], [phone] * (ABNORMAL) PRO-BRAIN NATRIURETIC PEPTIDE (PRO BNP) (04/04/2025 9:01 AM CDT) Only the most recent of2 resultswithin the time period is included. PRO-B TYPE NATRIURETIC PEPTIDE 21,349(H) <450 PG/ML 04/04/2025 9:46 AM CDT [facility] Comment: AGE INDEPENDENT: <300 PG/ML HAS A 99% NEGATIVE PREDICTIVE VALUE FOR EXCLUDING ACUTE CHF <50 YEARS: >450 PG/ML IS CONSISTENT WITH ACUTE CHF 50-75 YEARS: >900 PG/ML IS CONSISTENT WITH ACUTE CHF >75 YEARS: >1800 PG/ML IS CONSISTENT WITH ACUTE CHF IN PATIENTS WITH RENAL INSUFFICIENCY (GFR <60), >1200 PG/ML YIELDS A DIAGNOSTIC SENSITIVITY AND SPECIFICITY OF 89% AND 72% FOR ACUTE CHF. 04/04/2025 9:01 AM CDT us Barney Sherwood MD LABORATORY Final Result Performing Organization Address City/[facility] Co de Phone Number [facility] [address] [place] [address], [phone] * LACTIC ACID - SINGLE (04/04/2025 9:01 AM CDT) Only the most recent of2 resultswithin the time period is included. LACTIC ACID VENOUS 1.7 0.4 - 2.0 MMOL/L 04/04/2025 9:35 AM CDT [facility] 04/04/2025 9:01 AM CDT us Barney Sherwood MD LABORATORY Final Result [facility] [address] [place] [address], [phone] * US RETROPERITONEAL COMP (04/03/2025 9:47 AM CDT) Anatomical Region Laterality Modality Abdomen Ultrasound 04/04/2025 7:04 AM CDT Impressions 04/04/2025 7:06 AM CDT IMPRESSION: 1. No acute sonographic abnormality involving the kidneys or urinary bladder. 2. Simple right renal cyst for which no further follow-up is required. Referred By: JEFF WASHINGTON Interpreted By: Ela Muñoz MD, 04/04/2025 7:04 AM Narrative 04/04/2025 7:06 AM CDT [address] [address] EXAMINATION: ULTRASOUND KIDNEYS AND URINARY BLADDER HISTORY: Acute kidney injury. COMPARISON: None available. TECHNIQUE: An ultrasound examination of the kidneys and urinary bladder was performed to assess grayscale and color-flow characteristics. FINDINGS: Right kidney: Measures 10.0 x 5.7 x 3.5 cm cm. Normal echogenicity. Blood flow is observed. There is a 2.1 cm simple right renal cyst. No mass or shadowing stone. No hydronephrosis. Left kidney: Measures 9.7 x 3.9 x 4.6 cm. Normal echogenicity. Blood flow is observed. No mass, cyst or shadowing stone. No hydronephrosis. Urinary bladder: Minimally distended. No wall thickening visualized. No mass or shadowing bladder calculus. Ureteral jets not visualized on these images. Procedure Note Ela Muñoz MD - 04/04/[address] [address] EXAMINATION: ULTRASOUND KIDNEYS AND URINARY BLADDER HISTORY: Acute kidney injury. COMPARISON: None available. TECHNIQUE: An ultrasound examination of the kidneys and urinary bladder was performedto assess grayscale and color-flow characteristics. FINDINGS: Right kidney: Measures 10.0 x 5.7 x 3.5 cm cm. Normal echogenicity. Bloodflow is observed. There is a 2.1 cm simple right renal cyst. No mass orshadowing stone. No hydronephrosis. Left kidney: Measures 9.7 x 3.9 x 4.6 cm. Normal echogenicity. Blood flowis observed. No mass, cyst or shadowing stone. No hydronephrosis. Urinary bladder: Minimally distended. No wall thickening visualized. Nomass or shadowing bladder calculus. Ureteral jets not visualized on theseimages. IMPRESSION: 1. No acute sonographic abnormality involving the kidneys or urinarybladder. 2. Simple right renal cyst for which no further follow-up is required. Referred By: JEFF WASHINGTON Interpreted By: Ela Muñoz MD, 04/04/2025 7:04 AM us Ousmane Lamb MD ULTRASOUND Final Result * POCT glucose (04/03/2025 6:07 AM CDT) Only the most recent of10 resultswithin the time period is included. [facility] GLUCOSE POC 89 70 - 109 04/03/2025 6:18 AM CDT [facility] 04/03/2025 6:07 AM CDT Richi Richardson MD POCT ORDERABLES - DEVICE Final Result [facility] [address] [place] [address], [id number] * (ABNORMAL) COMPREHENSIVE METABOLIC PANEL (04/03/2025 4:06 AM CDT) Only the most recent of5 resultswithin the time period is included. Pathologist [facility] SODIUM S/P/B 131(L) 136 - 145 MMOL/L 04/03/2025 5:01 AM [facility] POTASSIUM S/P/B 4.1 3.5 - 5.1 MMOL/L 04/03/2025 5:01 AM [facility] CHLORIDE S/P/B 98 97 - 115 MMOL/L 04/03/2025 5:01 AM [facility] CO2 22.4 21.0 - 32.0 MMOL/L 04/03/2025 5:01 AM [facility] GLUCOSE 113(H) 74 - 106 MG/DL 04/03/2025 5:01 AM [facility] BUN 67(H) 7 - 18 MG/DL 04/03/2025 5:01 AM [facility] CREATININE S/P/B 2.60(H) 0.55 - 1.02 MG/DL 04/03/2025 5:01 AM [facility] CALCIUM S/P/B 8.7 8.5 - 10.1 MG/DL 04/03/2025 5:01 AM [facility] BILIRUBIN TOTAL S/P/B 0.7 0.2 - 1.0 MG/DL 04/03/2025 5:01 AM [facility] ALKALINE PHOSPHATASE S/P/B 84 55 - 142 U/L 04/03/2025 5:01 AM [facility] AST 101(H) 15 - 37 U/L 04/03/2025 5:01 AM [facility] ALT 66(H) 13 - 56 U/L 04/03/2025 5:01 AM [facility] TOTAL PROTEIN S/P/B 6.7 6.4 - 8.2 G/DL 04/03/2025 5:01 AM [facility] ALBUMIN S/P/B 3.6 3.4 - 5.0 G/DL 04/03/2025 5:01 AM [facility] ANION GAP 10.6(H) 2.0 - 10.0 MMOL/L 04/03/2025 5:01 AM CDT [facility] OSMOLALITY (CALC) 292 MOSM/KG 025 5:01 AM CDT [facility] Comment:REFERENCE RANGE NOT ESTABLISHED GFR ESTIMATE 18(L) >90 ML/MIN/1. 73 M2 04/03/2025 5:01 AM CDT [facility] GFR NOTES GFR REFERENCE S: 04/03/2025 5:01 AM CDT [facility] Comment: THE ESTIMATED GFR IS CALCULATED USING THE 2020 CKD-EPI EQUATION. THE FOLLOWING CATEGORIES FOR GRADING RENAL FUNCTION ARE RECOMMENDED BY THE INTERNATIONAL SOCIETY OF NEPHROLOGY (KDIGO 2012 CLINICAL PRACTICE GUIDELINE). G1,NORMAL OR HIGH: >89 ml/min/1.73 m2 G2,MILDLY DECREASED: 60-89 ml/min/1.73 m2 G3A,MILDLY TO MODERATELY DECREASED: 45-59 ml/min/1.73 m2 G3B,MODERATELY TO SEVERELY DECREASED: 30-44 ml/min/1.73 m2 G4,SEVERELY DECREASED: 15-29 ml/min/1.73 m2 G5,KIDNEY FAILURE: <15 ml/min/1.73 m2 04/03/2025 4:06 AM CDT us Alex Bhakta MD LABORATORY Fi nal Result [facility] [address] [place] [address], [id number] * (ABNORMAL) PHOSPHORUS, INORGANIC PHOSPHATE (04/03/2025 4:06 AM CDT) Only the most recent of4 resultswithin the time period is included. PHOSPHORUS 5.4(H) 2.5 - 4.9 MG/DL 04/03/2025 5:01 AM CDT [facility] 04/03/2025 4:06 AM CDT us Alex Bhakta MD LABORATORY Fi nal Result Performing Organization Address [facility]/ZIP Co de Phone Number [facility] [address] [place] [address], [id number] * MAGNESIUM (04/03/2025 4:06 AM CDT) Only the most recent of4 resultswithin the time period is included. MAGNESIUM 2.5 1.6 - 2.6 MG/DL 04/03/2025 5:01 AM CDT [facility] 04/03/2025 4:06 AM CDT Alex Bhakta MD LABORATORY Fi nal Result Performing Organization Address [facility] de Phone Number [facility] [address] [place] [address], [place] [phone] * (ABNORMAL) URINALYSIS (04/02/2025 5:57 PM CDT) COLOR (U) YELLOW 04/02/2025 6:10 PM CDT [facility] TRANSPARENCY CLEAR 04/02/2025 6:10 PM CDT [facility] SPECIFIC GRAVITY (U) 1.022 1.002 - 1.035 04/02/2025 6:10 PM CDT [facility] U PH 5.0 5 - 8 04/02/2025 6:10 PM CDT [facility] PROTEIN RANDOM (U) 50(A) NEGATIVE 04/02/2025 6:10 PM CDT [facility] GLUCOSE (U) NEGATIVE NEGATIVE MG/DL 04/02/2025 6:10 PM CDT [facility] KETONES MG/DL (U) NEGATIVE NEGATIVE 04/02/2025 6:10 PM CDT [facility] BILIRUBIN (U) NEGATIVE NEGATIVE 04/02/2025 6:10 PM CDT [facility] BLOOD (U) NEGATIVE NEGATIVE 04/02/2025 6:10 PM CDT [facility] NITRITES NEGATIVE NEGATIVE 04/02/2025 6:10 PM CDT [facility] UROBILINOGEN NORMAL 0 - 1 EU/DL 04/02/2025 6:10 PM CDT [facility] LEUKOCYTES (U) TRACE(A) NEGATIVE 04/02/2025 6:10 PM CDT [facility] RBC/HPF 1 0 - 3 /HPF 04/02/2025 6:10 PM CDT [facility] WBC/HPF 2 0 - 6 /HPF 04/02/2025 6:10 PM CDT [facility] BACTERIA (U) PRESENT /HPF 04/02/2025 6:10 PM CDT [facility] SQUAMOUS EPITHELIALS 3 04/02/2025 6:10 PM CDT [facility] GRANULAR CASTS 1 04/02/2025 6:10 PM CDT [facility] HYALINE CASTS 84 04/02/2025 6:10 PM CDT [facility] AMORPHOUS SEDIMENT PRESENT 04/02/2025 6:10 PM CDT [facility] URINE SPECIMEN OBTAINED BY CLEAN CATCH PROCEDURE / Unknown 04/02/2025 5:57 PM CDT us Ousmanetani Lamb MD URINE ORDERABLES Final Result [facility] [address] [place] [address], [id number] * TYPE & SCREEN (04/02/2025 5:20 AM CDT) ABO/RH B POSITIVE 04/02/2025 6:23 AM CDT [facility] ANTIBODY SCREEN NEGATIVE 04/02/2025 6:23 AM CDT [facility] SAMPLE EXPIRATION 04/05/2025,2 359 04/02/2025 5:34 AM CDT [facility] 04/02/2025 5:20 AM CDT us Brooklynn Cota MD BLOOD BANK TEST ORDERABLES Fin al Result Performing Organization Address [facility] Co de Phone Number [facility] [address] [place] [address], [place] [phone] * LACTIC ACID W REFLEX (SEPSIS) (04/01/2025 11:20 AM CDT) Only the most recent of2 resultswithin the time period is included. LACTIC ACID VENOUS 1.8 0.4 - 2.0 MMOL/L 04/01/2025 12:12 PM CDT [facility] 04/01/2025 11:2 0 AM CDT us Alex Bhakta MD LABORATORY Fi nal Result Performing Organization Address [facility] de Phone Number [facility] [address] [place] [address], [place] [phone] * USV VAST TEAM MIDLINE INSERT >5YR (03/31/2025 4:25 PM CDT) Anatomical Region Laterality Modality NA Vascular Ultraso und 03/31/2025 3:41 PM CDT Narrative 03/31/2025 3:41 PM CDT This report does not contain a radiologist's interpretation. Please review associated procedure and/or operative report. Procedure Note Kimberly Cuba MD - 03/31/2025 This report does not contain a radiologist's interpretation. Please review associated procedure and/or operative report. us Alex Bhakta MD VASC Fi nal Result * (ABNORMAL) PROTHROMBIN TIME, VENOUS (03/31/2025 2:30 PM CDT) Only the most recent of3 resultswithin the time period is included. PROTIME 39.6(H) 9.4 - 12.5 SEC 03/31/2025 3:11 PM CDT [facility] INR 3.4(H) 0.8 - 1.1 03/31/2025 3:11 PM CDT [facility] 03/31/2025 2:30 PM CDT us Alex Bhakta MD LABORATORY Fi nal Result [facility] [address] [place] [address], [id number] * (ABNORMAL) HEPATIC FUNCTION PANEL (03/31/2025 2:30 PM CDT) Pathologist [facility] BILIRUBIN TOTAL S/P/B 0.8 0.2 - 1.0 MG/DL 03/31/2025 3:23 PM CDT [facility] BILIRUBIN DIRECT S/P/B 0.4(H) 0.0 - 0.2 MG/DL 03/31/2025 3:23 PM CDT [facility] ALKALINE PHOSPHATASE S/P/B 81 55 - 142 U/L 03/31/2025 3:23 PM CDT [facility] AST 37 15 - 37 U/L 03/31/2025 3:23 PM CDT [facility] ALT 16 13 - 56 U/L 03/31/2025 3:23 PM CDT [facility] TOTAL PROTEIN S/P/B 6.8 6.4 - 8.2 G/DL 03/31/2025 3:23 PM CDT [facility] ALBUMIN S/P/B 3.0(L) 3.4 - 5.0 G/DL 03/31/2025 3:23 PM CDT [facility] 03/31/2025 2:30 PM CDT us Alex Bhakta MD LABORATORY Fi nal Result Performing Organization Address [facility] Co de Phone Number [facility] [address] [place] [address], [place] [phone] * (ABNORMAL) TROPONIN, QUANT (03/31/2025 2:30 PM CDT) Only the most recent of5 resultswithin the time period is included. [facility] TROPONIN I HIGH SENSITIVITY 56(H) 0 - 53 ng/L 03/31/2025 3:23 PM CDT [facility] 03/31/2025 2:30 PM CDT Alex Bhakta MD LABORATORY Fi nal Result Performing Organization Address [facility] de Phone Number [facility] [address] [place] [address], [place] [phone] * (ABNORMAL) THYROID STIM HORMONE, TSH (03/31/2025 2:30 PM CDT) [facility] TSH 4.080(H) 0.358 - 3.740 uIU/ML 03/31/2025 3:23 PM CDT [facility] Comment: ASSAY PERFORMED BY CHEMILUMINESCENCE METHODOLOGY USING SIEMENS DIMENSION VISTA REAGENT. PATIENT RESULTS DETERMINED BY ASSAYS USING DIFFERENT MANUFACTURERS FOR METHODS MAY NOT BE COMPARABLE. 03/31/2025 2:30 PM CDT us Alex Bhakta MD LABORATORY Fi nal Result Performing Organization Address [facility] Co de Phone Number [facility] [address] [place] [address], [place] [phone] * (ABNORMAL) CALCIUM, IONIZED (03/31/2025 2:30 PM CDT) CALCIUM IONIZED 1.12(L) 1.15 - 1.33 MMOL/L 03/31/2025 2:49 PM CDT [facility] 03/31/2025 2:30 PM CDT Alex Bhakta MD LABORATORY Fi nal Result Performing Organization Address [facility] de Phone Number [facility] [address] [place] [address], [id number] * STAPH SCREENING BY PCR (03/31/2025 2:25 PM CDT) SPECIMEN SOURCE RESPIRATORY, NOSE 03/31/2025 2:21 PM CDT [facility] MRSA BY PCR NASAL METHICILLIN RESISTANT STAPH AUREUS NOT DETECTED METHICILLIN RESISTANT STAPH AUREUS NOT DETECTED 04/01/2025 11:08 AM CDT [facility] NASAL STRUCTURE / Unknown 03/31/2025 2:25 PM CDT Alex Bhakta MD MICROBIOLOGY - GEN ERAL ORDERABLES Final Result Performing Organization Address [facility] de Phone Number [facility] [address] [place] [address], [id number] * USE ECHOCARDIOGRAM W CON (03/30/2025 10:35 AM CDT) Anatomical Region Laterality Modality NA Echocardiogram 03/30/2025 9:45 AM CDT Narrative 03/30/2025 7:03 PM CDT Echocardiography Report Pat.Name: JENNIFER COATES MAE Pat.ID: [id number] .Date: 03/30/2025 Refer.MD: [id number] TOLU Allen EWDPROV EWDPROV Exam Time: 9:45:00 AM Study Type:ECHO W/CONTRAST COMPLETE Height: 60 in Weight: 175 lb BSA: 1.76 m2 Age: 9 1940,84Y Sex: F BP: 108/70 HR: 104 bpm Sonogrphr: Moreland Jennifer RUST Pat. Stat.:Inpatient Room: 642 CPT - 4: C8929 History / Clinical:Congestive failure, Atrial fibrillation/flutter Procedures: 2D, M-mode, Doppler, Color Flow, Definity was used to enhance endocardial definition. Race: W ++++++++++++++++++++++++++++++++++++ SUMMARY: ++++++++++++++++++++++++++++++++++++ The left ventricular systolic function is severely depressed. The calculated ejection fraction is 15%. The right ventricular size is normal. Right ventricular systolic function is at the lower limit of normal. Inferior vena cava shows >50% collapse with respiration consistent with normal right atrial pressure. Moderate mitral regurgitation. There is trace tricuspid regurgitation. ++++++++++++++++++++++++++++++++++++ FINDINGS: ++++++++++++++++++++++++++++++++++++ LV: The left ventricular systolic function is severely depressed. The calculated ejection fraction is 15%. The septal E/e' is normal at < 8. The lateral E/e' is indeterminate at 9-11. RV: The right ventricular size is normal. Right ventricular systolic function is at the lower limit of normal. Right ventricular systolic pressure is mmHg. TAPSE = 0.458mm (<16 mm indicates systolic RV dysfunction). LA: The left atrial size is normal. The left atrial volume is normal ( less than 34 ml/M2). RA: Right atrial size is normal. A pacemaker wire is visualized in the right atrium. PLE: Pleural effusion is present. AO: Aorta is normal. PA: Pulmonary artery not well visualized. SVn: Inferior vena cava is normal. Inferior vena cava shows >50% collapse with respiration consistent with normal right atrial pressure. Other: Technically difficult exam due to patient position. AV: Structurally normal aortic valve. MV: Structurally normal mitral valve. Moderate mitral regurgitation. PV: Pulmonic valve not well visualized. TV: The tricuspid valve appears structurally normal. There is trace tricuspid regurgitation. ++++++++++++++++++++++++++++++++++++ MEASUREMENTS: ++++++++++++++++++++++++++++++++++++ DOPPLER LVOT LVOTpkPG 2.4 mmHg LVOTmnPG 1.2 mmHg LVOTpkVel 77.2 cm/s (70-110) LVOT SV 25 ml LVOT TVI 9.16 cm AV Forward Flow AV TVI 18 cm AV pkPG 6 mmHg AV pkVel 121 cm/s (100-170) Area (TVI) 1.41 cm2 (3-5)* AV mnVel 82.7 cm/s Area (Daniel) 1.77 cm2 (3-5)* AV mnPG 3.2 mmHg AV Regurg Flow AV pkVel 241 cm/s AV P1/2t 242 msec AV pkPG 23.2 mmHg MV Forward Flow MV DeTm 157 msec MV P1/2t 46 msec (30-60)+ MVA P1/2t 4.78 cm2 (4-6) MV pkE 138 cm/s (60-130)* MV Regurg Flow MV TVI 121 cm MV pkPG 67.3 mmHg MV mnPG 42 mmHg MV pkVel 410 cm/s (60-130)+* MV mnVel 309 cm/s PV Forward Flow PV TVI 10.2 cm PV mnVel 48.9 cm/s PV pkVel 72.7 cm/s (60-90) PV mnPG 1 mmHg PV pkPG 2 mmHg TV Regurg Flow TV pkPG 39 mmHg TV pkVel 311 cm/s (30-70)+* Lat E' Lat e 9.03 cm/s Lat E/E' Lat E/e 15.3 Med E' Med e 3.81 cm/s Med E/E' Med E/e 36.2 Aortic Valve Aortic Valve Ar 0.8 Aortic Valve Ve 0.64 AV DI Value 0.5 CHANELL (VTI) Index Value 0.8 AV Regurgitant Flow Decel Time 420 ms Left Ventricle Ratio of MV Pea 21.5 Mean Myocardial 6.42 cm/s LV Mass 2D Value 180 g LV Mass [id number] Value 102 g/m2 RA Volume Atrial Bermudez 3.96 cm Atrial Bermudez 14.7 cm2 Atrial Bermudez 45.1 ml 2D Left Ventricle LVIDd 3.09 cm (3.6-5.2)* LV EF(Bi-Plane) 15 % (55-75)* LVIDs 2.9 cm (2.3-3.9) Relative Wall T 0.324 LVPW LVPWd 0.88 cm Ventricular Septum IVSd 0.9 cm Aorta Ao Rtd 2.7 cm (zsc 0) LVOT LVOT 1.88 cm Ratios IVS LA Biplane LAVol I BP 28.8 ml/m2 LV Biplane Major [place] Minal 8.14 % Major [place] Minal 13.9 % LV Left Ventricle Mass by M-mode LV Mass 180 g Right Ventricle Right Ventricle 3.5 cm Right Ventricle 2.8 cm Major [place] 8 cm MMODE TA Tricuspid Annul 0.458 cm <Electronic Signature> 03/30/2025 07:03 PM Stella Llanos M.D. Procedure Note Stella Llanos MD - 03/30/2025 Echocardiography Report Pat.Name: JENNIFER COATES Pat.ID: [id number] .Date: 03/30/2025 Guerline.: [id number] TOLU Allen EWDPROV EWDPROV Exam Time: 9:45:00 AM Study Type:ECHO W/CONTRAST COMPLETE Height: 60 in Weight: 175 lb BSA: 1.76 m2 Age: 9 1940,84Y Sex: F BP: 108/70 HR: 104 bpm Sonogrphr: Jennifer Moreland Pat. Stat.:Inpatient Room: 642 CPT - 4: C8929 History / Clinical:Congestive failure, Atrial fibrillation/flutter Procedures: 2D, M-mode, Doppler, Color Flow, Definity was used to enhance endocardial definition. Race: W ++++++++++++++++++++++++++++++++++++ SUMMARY: ++++++++++++++++++++++++++++++++++++ The left ventricular systolic function is severely depressed. The calculated ejection fraction is 15%. The right ventricular size is normal. Right ventricular systolic function is at the lower limit of normal. Inferior vena cava shows >50% collapse with respiration consistent with normal right atrial pressure. Moderate mitral regurgitation. There is trace tricuspid regurgitation. ++++++++++++++++++++++++++++++++++++ FINDINGS: ++++++++++++++++++++++++++++++++++++ LV: The left ventricular systolic function is severely depressed. The calculated ejection fraction is 15%. The septal E/e' is normal at < 8. The lateral E/e' is indeterminate at 9-11. RV: The right ventricular size is normal. Right ventricular systolic function is at the lower limit of normal. Right ventricular systolic pressure is mmHg. TAPSE = 0.458mm (<16 mm indicates systolic RV dysfunction). LA: The left atrial size is normal. The left atrial volume is normal ( less than 34 ml/M2). RA: Right atrial size is normal. A pacemaker wire is visualized in the right atrium. PLE: Pleural effusion is present. AO: Aorta is normal. PA: Pulmonary artery not well visualized. SVn: Inferior vena cava is normal. Inferior vena cava shows >50% collapse with respiration consistent with normal right atrial pressure. Other: Technically difficult exam due to patient position. AV: Structurally normal aortic valve. MV: Structurally normal mitral valve. Moderate mitral regurgitation. PV: Pulmonic valve not well visualized. TV: The tricuspid valve appears structurally normal. There is trace tricuspid regurgitation. ++++++++++++++++++++++++++++++++++++ MEASUREMENTS: ++++++++++++++++++++++++++++++++++++ DOPPLER LVOT LVOTpkPG 2.4 mmHg LVOTmnPG 1.2 mmHg LVOTpkVel 77.2 cm/s (70-110) LVOT SV 25 ml LVOT TVI 9.16 cm AV Forward Flow AV TVI 18 cm AV pkPG 6 mmHg AV pkVel 121 cm/s (100-170) Area (TVI) 1.41 cm2 (3-5)* AV mnVel 82.7 cm/s Area (Daniel) 1.77 cm2 (3-5)* AV mnPG 3.2 mmHg AV Regurg Flow AV pkVel 241 cm/s AV P1/2t 242 msec AV pkPG 23.2 mmHg MV Forward Flow MV DeTm 157 msec MV P1/2t 46 msec (30-60)+ MVA P1/2t 4.78 cm2 (4-6) MV pkE 138 cm/s (60-130)* MV Regurg Flow MV TVI 121 cm MV pkPG 67.3 mmHg MV mnPG 42 mmHg MV pkVel 410 cm/s (60-130)+* MV mnVel 309 cm/s PV Forward Flow PV TVI 10.2 cm PV mnVel 48.9 cm/s PV pkVel 72.7 cm/s (60-90) PV mnPG 1 mmHg PV pkPG 2 mmHg TV Regurg Flow TV pkPG 39 mmHg TV pkVel 311 cm/s (30-70)+* Lat E' Lat e 9.03 cm/s Lat E/E' Lat E/e 15.3 Med E' Med e 3.81 cm/s Med E/E' Med E/e 36.2 Aortic Valve Aortic Valve Ar 0.8 Aortic Valve Ve 0.64 AV DI Value 0.5 CHANELL (VTI) Index Value 0.8 AV Regurgitant Flow Decel Time 420 ms Left Ventricle Ratio of MV Pea 21.5 Mean Myocardial 6.42 cm/s LV Mass 2D Value 180 g LV Mass [id number] Value 102 g/m2 RA Volume Atrial Bermudez 3.96 cm Atrial Bermudez 14.7 cm2 Atrial Bermudez 45.1 ml 2D Left Ventricle LVIDd 3.09 cm (3.6-5.2)* LV EF(Bi-Plane) 15 % (55-75)* LVIDs 2.9 cm (2.3-3.9) Relative Wall T 0.324 LVPW LVPWd 0.88 cm Ventricular Septum IVSd 0.9 cm Aorta Ao Rtd 2.7 cm (zsc 0) LVOT LVOT 1.88 cm Ratios IVS LA Biplane LAVol I BP 28.8 ml/m2 LV Biplane Major [place] Minal 8.14 % Major [place] Minal 13.9 % LV Left Ventricle Mass by M-mode LV Mass 180 g Right Ventricle Right Ventricle 3.5 cm Right Ventricle 2.8 cm Major [place] 8 cm MMODE TA Tricuspid Annul 0.458 cm <Electronic Signature> 03/30/2025 07:03 PM Stella Llanos M.D. Diego Rojas MD ECHO Final Result * ECG 12 lead (03/29/2025 7:44 PM CDT) Only the most recent of3 resultswithin the time period is included. 03/29/2025 7:44 PM CDT Narrative [facility] - 03/30/2025 10:16 AM CDT [address] [address] Test Date: 2025-03-29 Pat Name: JENNIFER COATES Department: 1 Room: [facility] Gender: Female Software Support Specialist: Waqas VILLAFANAB: 1940 Requested By: DONOVAN YOU Order Number: [id number] Reading : Naeem Mooney Measurements Intervals [place] Rate: 113 P: 68 [place]: 157 QRS: 267 QRSD: 153 T: 73 QT: 371 QTc: 510 Interpretive Statements SINUS TACHYCARDIA RIGHT AXIS DEVIATION [QRS AXIS > 100] INTRAVENTRICULAR CONDUCTION DELAY [130+ ms QRS DURATION] Procedure Note Naeem Mooney MD - 03/30/[address] [address] Test Date: 2025-03-29 Pat Name: JENNIFER COATES Department: 1 Room: 642AA Gender: Female Software Support Specialist: Waqas VILLAFANAB: 1940 Requested By: DONOVAN YOU Order Number: [id number] Reading : Naeem Mooney Measurements Intervals [place] Rate: 113 P: 68 [place]: 157 QRS: 267 QRSD: 153 T: 73 QT: 371 QTc: 510 Interpretive Statements SINUS TACHYCARDIA RIGHT AXIS DEVIATION [QRS AXIS > 100] INTRAVENTRICULAR CONDUCTION DELAY [130+ ms QRS DURATION] us Donovan You MD ECG ORDERABLES Final Result [facility] * PARTIAL THROMBOPLASTIN TIME,PTT (03/29/2025 7:11 PM CDT) Only the most recent of2 resultswithin the time period is included. PTT 34.9 25.1 - 36.5 SEC 03/29/2025 8:16 PM CDT [facility] 03/29/2025 7:11 PM CDT us Donovan You MD LABORATORY Final Result Performing Organization Address [facility] Co de Phone Number [facility] [address] [place] [address], [place] [phone] * INFLUENZA A & B (03/29/2025 1:28 PM CDT) SPECIMEN TYPE (INFLUENZA) NASOPHARYNGEAL SWAB 03/29/2025 1:28 PM CDT [facility] INFLUENZA A NEGATIVE NEGATIVE 03/29/2025 1:55 PM CDT [facility] INFLUENZA B NEGATIVE NEGATIVE 03/29/2025 1:55 PM CDT [facility] Comment: A NEGATIVE RESULT DOES NOT EXCLUDE INFLUENZA VIRUS INFECTION. IF INFLUENZA IS CIRCULATING IN YOUR COMMUNITY, A DIAGNOSIS OF INFLUENZA SHOULD BE CONSIDERED BASED ON A PATIENT'S CLINICAL PRESENTATION AND EMPIRIC ANTIVIRAL TREATMENT SHOULD BE CONSIDERED IF INDICATED. NASAL NASOPHARYNGEAL SWAB / Unknown 03/29/2025 1:28 PM CDT Jeff Washington DO MICROBIOLOGY - GENERAL ORDER EJ Final Result Performing Organization Address City/[facility]/ZIP Co de Phone Number [facility] [address] [place] [address], [place] [phone] * RESP SYNCYTIAL VIRUS (03/29/2025 1:28 PM CDT) SPECIMEN TYPE NASOPHARYNGEAL SWAB 03/29/2025 1:28 PM CDT [facility] RSV NEGATIVE NEGATIVE 03/29/2025 1:55 PM CDT [facility] NASOPHARYNGEAL SWAB / Unknown 03/29/2025 1:28 PM CDT us Jeff Washington DO MICROBIOLOGY - GENERAL ORDER EJ Final Result [facility] [address] [place] [address], * CT HEAD WO CON (03/29/2025 12:35 PM CDT) Anatomical Region Laterality Modality Head Computed Tomogra phy 03/29/2025 12:4 1 PM CDT Impressions 03/29/2025 12:44 PM CDT IMPRESSION: 1. No acute intracranial process identified. 2. Cortical atrophy and small vessel disease. Ordered By: JEFF WASHINGTON Interpreted By: Richard Isabel MD, 03/29/2025 12:41 PM Narrative 03/29/2025 12:44 PM CDT [facility] [address] [employer] [address] Examination: CT of the head without contrast. Exam time: 1237 hours. Clinical history: Dizziness. Lightheadedness. History of diabetes and hyperlipidemia. Comparison: None. Technique: Noncontrast axial scans from skull base to vertex. Sagittal and coronal reconstructions were performed from the data set. A dose lowering technique was used for this procedure, which may include, but is not limited to, dose reduction techniques, automated exposure control, the use of iterative reconstruction and ALARA/Image Gently techniques. Findings: There is prominence of the ventricles, fissures and sulci, somewhat greater than anticipated even allowing for age, compatible with mild diffuse cortical atrophy. No shift of midline or mass effect is noted. There is periventricular decreased attenuation, compatible with small vessel disease. No other areas of abnormal x-ray attenuation are identified. In particular, there is no mass, hemorrhage or sign of acute stroke. No extracerebral fluid collections. The mastoid air cells and paranasal sinuses appear clear. Bilateral IOL placement is noted. Procedure Note Richard Isabel MD - 03/29/2025 [place] [id number] [facility] [place] [address] Examination: CT of the head without contrast. Exam time: 1237 hours. Clinical history: Dizziness. Lightheadedness. History of diabetes andhyperlipidemia. Comparison: None. Technique: Noncontrast axial scans from skull base to vertex. Sagittal andcoronal reconstructions were performed from the data set. A dose loweringtechnique was used for this procedure, which may include, but is notlimited to, dose reduction techniques, automated exposure control, the useof iterative reconstruction and ALARA/Image Gently techniques. Findings: There is prominence of the ventricles, fissures and sulci,somewhat greater than anticipated even allowing for age, compatible withmild diffuse cortical atrophy. No shift of midline or mass effect isnoted. There is periventricular decreased attenuation, compatible withsmall vessel disease. No other areas of abnormal x- ray attenuation areidentified. In particular, there is no mass, hemorrhage or sign of acutestroke. No extracerebral fluid collections. The mastoid air cells andparanasal sinuses appear clear. Bilateral IOL placement is noted. IMPRESSION: 1. No acute intracranial process identified. 2. Cortical atrophy and small vessel disease. Ordered By: JEFF [place] Interpreted By: Richard Isabel MD, 03/29/2025 12:41 PM us Jeff [place] DO CT Final Result * XR CHEST PORTABLE (03/29/2025 12:24 PM CDT) Anatomical Region Laterality Modality Chest Radiographic Emilie ging 03/29/2025 12:3 5 PM CDT Impressions 03/29/2025 12:37 PM CDT IMPRESSION: Cardiomegaly with new congestive changes as described. No focal infiltrates. Ordered By: JEFF [place] Interpreted By: Richard Isabel MD, 03/29/2025 12:35 PM Narrative 03/29/2025 12:37 PM CDT [address] [place] [address] Examination: Portable chest. Exam time: 1215 hours. Clinical history: Dyspnea. Comparison: 01/06/2024 ([facility]). Technique: AP upright view. Findings: Allowing for differences in projection and rotation, the cardiomediastinal silhouette is stable. The heart remains mildly enlarged. 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 There is now pulmonary vascular congestion with mild perivascular haziness and interstitial prominence compatible with interstitial edema. No confluent infiltrates or significant pleural effusion. The visualized bony thorax is stable. Procedure Note Richard Isabel MD - 03/29/[address] [place] [address] Examination: Portable chest. Exam time: 1215 hours. Clinical history: Dyspnea. Comparison: 01/06/2024 ([facility]). Technique: AP upright view. Findings: Allowing for differences in projection and rotation, thecardiomediastinal silhouette is stable. The heart remains mildly enlarged.Right subclavian transvenous pacemaker remains in place with stablepositioning of its leads. There is now pulmonary vascular congestion withmild perivascular haziness and interstitial prominence compatible withinterstitial edema. No confluent infiltrates or significant pleuraleffusion. The visualized bony thorax is stable. IMPRESSION: Cardiomegaly with new congestive changes as described. No focalinfiltrates. Ordered By: JEFF [place] Interpreted By: Richard Isabel MD, 03/29/2025 12:35 PM Jeff [place] DO GENERAL IMAGING Final Result * (ABNORMAL) HEPARIN, ANTI XA, UFH (03/29/2025 12:08 PM CDT) HEPARIN ANTI XA UFH >2.00(HH) 0.30 - 0.70 IU/ML 03/29/2025 3:54 PM CDT [facility] Comment: UFH Therapeutic Anti Xa Ranges: Medical Therapeutic Range: 0.30 - 0.70 IU/mL Cardiac Therapeutic Range: 0.30 - 0.50 IU/mL Neuro Therapeutic Range: 0.20 - 0.40 IU/mL CALLED TO AVRIL CAMPBELL ER [id number] AR READ BACK AND VERIFIED 03/29/2025 12:0 8 PM CDT us Jeff [place] DO LABORATORY Final Result Performing Organization Address [facility]/ZIP Co de Phone Number [facility] [address] [place] [address], [place] [phone] * (ABNORMAL) D-DIMER, QUANTITATIVE (03/29/2025 12:08 PM CDT) [facility] D-DIMER 548(H) 0 - 500 ng{FEU}/mL 03/29/2025 12:40 PM CDT [facility] Comment: D-Dimer values less than or equal to 500 ng/mL FEU have a negative predictive value of >95% for exclusion of deep vein thrombosis and pulmonary embolism. In patients over 50 (who tend to have higher normal baseline D-Dimer values), recent studies suggest age-adjusted D-Dimer cutoff values (calculated as: age [years] x 10 ng/mL) result in equivalent outcomes and no additional false negative findings. 03/29/2025 12:0 8 PM CDT us Jeff [place] DO LABORATORY Final Result [facility] [address] [place] [address], [place] [phone] * LIPID PANEL (03/27/2021 10:35 AM CDT) Pathologist [facility] CHOLESTEROL 201 MG/DL 03/27/2021 11:16 AM CDT [...] CDT PRINCE Brand APRNC LABORATORY Final Result [facility] [address] [place] [address], [id number] from Last 3 Months or Most Recently Relevant to Health Maintenance Insurance [facility] MEDICAID MEDICAID Advance Directives Documents on File Type Date Recorded Patient [place] Expl anation Power of Licensed Occupational Therapist 10/21/2024 2:16 PM 2012 - ALEXANDRA COATES, HCA-SON; REJI COATES, 1ST ALTERNATE HCA-OTHER; ANGEL COATES, 2ND ALTERNATE HCA-OTHER; DANNY COATES, 3RD ALTERNATE HCA-OTHER; Advance Directives and Living Will 10/21/2024 2:03 PM Advance Directives and Living Will 10/21/2024 2:03 PM Advance Directives and Living Will 06/21/2017 9:24 AM 01/17/2013 - Living will * DNR (Latest Code Status on File) Date Activated Date Inactivated Comments 03/31/2025 3:18 PM 04/06/2025 4:02 PM * Full Code Date Activated Date Inactivated Comments 03/31/2025 1:24 PM 03/31/2025 3:18 PM * DNR Date Activated Date Inactivated Comments 03/29/2025 6:34 PM 03/31/2025 1:24 PM * DNR Date Activated Date Inactivated Comments 07/23/2023 5:58 PM 07/24/2023 3:01 PM * Full Code Date Activated Date Inactivated Comments 07/23/2023 4:00 PM 07/23/2023 5:58 PM Healthcare Agents on File Name Relationship Healthcare Agent Relationship Communication Alexandra Coates ([facility]) [facility] Health Care Agent Angel Coates Other Second Alternate Health Care Agent Care Teams Event Representative Relationship Specialty Start Date End Date Gino Meyer MD [address] [place] [address] PCP - General INTERNAL MEDICINE 06/11/17 Christel Lu MD [address] [place] [phone] EP Director Financial Analysis CLINICAL CARDIAC ELECTROPHYSIOLOGY 06/12/23 Stella Llanos MD [address] [place] [address] Kennan Director Financial Analysis CARDIOVASCULAR DISEASE 09/28/24
--- OUTSIDE RECORDS SUMMARY | 2025-05-07 09:36 | XMS_ITS | Encounter Summary ---
Author Organization [facility] Address [address] [place] [address] Care Team Providers Care Inspector Semiconductor Wafer Name Role Phone Toy Warren MD Primary Care Provider [phone] Santos Fuentes MD Unavailable [phone] Gino Meyer MD Primary Care Provider [phone] Shana Adams AUTO ACCESSORIES INSTALLER Unavailable Unavailable Christel Lu MD Unavailable Stella Llanos MD Unavailable Encounter Details Date Type Department Care Team (Late st Contact Info) Description 01/31/2017 Abstract [facility] [address] [place] [address] Santos Fuentes MD [address] [place] [address] Social History Tobacco Use Types Packs/Day Years Used Date Smoking Tobacco: Never Alcohol Use Standard Drinks/Week Comments No 0 (1 standard drink = 0.6 oz pur e alcohol) Comments Unknown Sex and Gender Information Value Date Recorded Sex Assigned at Female 09/01/2024 10:13 AM ELOCUTION TEACHER Legal Sex Female 10:21 PM CDT Gender Identity Female 03/29/2025 8:02 PM CDT Sexual Orientation Not on file Occupation Industry Job Start Date Job End Date retired Not on file Not on file Not on file documented as of this encounter Plan of Treatment Upcoming Encounters Date Type Department Care Team (Late st Contact Info) Description 05/17/2025 2:00 PM CDT Office Visit [facility] [place] [address] Stella Llanos MD [address] [place] [address] 06/14/2025 1:00 AM CDT Allied Health/Nurse Visit [facility] ld [address] [place] [address] Crhistel Lu MD [address] [place] [address] 11/02/2025 1:30 PM CDT [facility] [address] [place] [address] Maciel Wang, PATanishaC [address] [place] [address] 11/02/2025 1:30 PM CDT Allied Health/Nurse [facility] [address] [place] [address] Christel Lu MD [address] [place] [address] documented as of this encounter Visit Diagnoses Not on filedocumented in this encounter Additional Health Concerns Infection Onset Date Last Indicated Resolved Time COVID-19 Rule Out 04/24/2022 04/24/202204/24/2022 4:06 AM CDT Respiratory Rule Out 03/29/2025 03/29/2025 025 1:55 PM CDT documented as of this encounter Care Teams Inspector Semiconductor Wafer Relationship Specialty Start Date End Date Toy Warren MD [address] [place] [address] PCP - General INTERNAL MEDICINE 02/06/17 06/10/17 Gino Meyer MD [address] [place] [phone] PCP - General INTERNAL MEDICINE 06/11/17 Santos Fuentes MD [address] [place] [phone] Naylor Manager Database Administration CARDIOVASCULAR DISEASE 02/06/17 08/31/24 Shana Adams NP [address] [place] [address] Referring Physician Nurse Practitioner Family 02/27/23 Christel Lu MD [address] [place] [address] EP Manager Database Administration CLINICAL CARDIAC ELECTROPHYSIOLOGY 06/12/23 Stella Llanos MD [address] [place] [address] Naylor Manager Database Administration CARDIOVASCULAR DISEASE 09/28/24 documented as of this encounter
--- OUTSIDE RECORDS SUMMARY | 2025-05-07 09:36 | XMS_ITS | Encounter Summary ---
Author Organization [facility] Address [address] [place] [address] Care Team Providers Care Seam Stayer Name Role Phone Santos Fuentes MD Unavailable [phone] Gino Meyer MD Primary Care Provider [phone] Sahna Adams NP Unavailable Unavailable Christel Lu MD Unavailable Stella Llanos MD Unavailable Encounter Details Date Type Department Care Team (Late st Contact Info) Description 02/15/2021 Abstract [facility] [address] [place] [phone] Santos Fuentes MD [address] [place] [address] Social History Tobacco Use Types Packs/Day Years Used Date Smoking Tobacco: Never Smokeless Tobacco: Never Alcohol Use Standard Drinks/Week Comments No 0 (1 standard drink = 0.6 oz pur e alcohol) Comments Unknown Sex and Gender Information Value Date Recorded Sex Assigned at Female 09/01/2024 10:13 AM NITRIC ACID CONCENTRATOR OPERATOR Legal Sex Female 10:21 PM CDT [...] Description 05/17/2025 2:00 PM CDT Office Visit [facility] [place] [phone] Stella Llanos MD [address] [place] [address] 06/14/2025 1:00 AM CDT Allied Health/Nurse Visit [facility] ld [address] [place] [address] Christel Lu MD [address] [place] [phone] 11/02/2025 1:30 PM CDT Office Visit [facility] ld [address] [place] [address] Maciel Wang PA-C [address] [place] [address] 11/02/2025 1:30 PM CDT Allied Health/Nurse Visit [facility] ld [address] [place] [address] [phone] Christel Lu MD [address] [place] [address] documented as of this encounter Procedures Procedure [...] documented as of this encounter Care Teams Seam Stayer Relationship Specialty Start Date End Date Gino Meyer MD [address] [place] [address] PCP - General INTERNAL MEDICINE 06/11/17 Santos Fuentes MD [address] [place] [address] [place] Oracle Database Analyst CARDIOVASCULAR DISEASE 02/06/17 08/31/24 Shana Adams NP [address] [place] [address] Referring Physician Nurse Practitioner [facility] 02/27/23 Christel Lu MD [address] [place] [address] EP Oracle Database Analyst CLINICAL CARDIAC ELECTROPHYSIOLOGY 06/12/23 Stella Llanos MD [address] [place] [address] [place] Oracle Database Analyst CARDIOVASCULAR DISEASE 09/28/24 documented as of this encounter
--- OUTSIDE RECORDS SUMMARY | 2025-05-07 09:36 | XMS_ITS | Encounter Summary ---
Author Organization [facility] Address [address] [place] [address] Care Team Providers Care Astronaut Mission Specialist Name Role Phone Santos Fuentes MD Unavailable [phone] Gino Meyer MD Primary Care Provider [phone] Shana Adams NP Unavailable Unavailable Christel Lu MD Unavailable Stella Llanos MD Unavailable Encounter Details Date Type Department Care Team (Late st Contact Info) Description 12/06/2022 Hospital Follow-up Call [facility] [address] [place] [address] Stephie Arreola, RN Social History [...] Sex Assigned at Female 09/01/2024 10:13 AM GAS MAKER HELPER Legal Sex Female 10:21 PM CDT [...] Description 05/17/2025 2:00 PM CDT Office Visit [facility] [place] [address] Stella Llanos MD [address] [place] [address] 06/14/2025 1:00 AM CDT [facility] [address] [place] [address] Christel Lu MD [address] [place] [address] 11/02/2025 1:30 PM CDT [facility] [address] [place] [phone] Maciel Wang PA-C [address] [place] [address] 11/02/2025 1:30 PM CDT Allied Health/N[facility] [address] [place] [address] Christel Lu MD [address] [place] [address] documented as of this encounter [...] documented as of this encounter Care Teams Astronaut Mission Specialist Relationship Specialty Start Date End Date Gino Meyer MD [address] [place] [address] PCP - General INTERNAL MEDICINE 06/11/17 Santos Fuentes MD [address] [place] [address] [place] Commercial Roofer CARDIOVASCULAR DISEASE 02/06/17 08/31/24 Shana Adams NP [address] [place] [address] Referring Physician Nurse Practitioner Family 02/27/23 Christel Lu MD [address] [place] [address] EP Commercial Roofer CLINICAL CARDIAC ELECTROPHYSIOLOGY 06/12/23 Stella Llanos MD [address] [place] [address] [place] Commercial Roofer CARDIOVASCULAR DISEASE 09/28/24 documented as of this encounter
--- OUTSIDE RECORDS SUMMARY | 2025-05-07 09:37 | XMS_ITS | Encounter Summary ---
Author Organization [facility] Address [address] [place] [address] Care Team Providers Care Rail Detector Car Operator Name Role Phone Toy Warren MD Primary Care Provider [phone] Santos Fuentes MD Unavailable [phone] Gino Meyer MD Primary Care Provider [phone] Shana Adams FILTER TANK TENDER HELPER Unavailable Unavailable Christel Lu MD Unavailable Stella Llanos MD Unavailable Encounter Details Date Type Department Care Team (Late st Contact Info) Description 03/06/2017 Abstract [facility] [address] [place] [address] Santos Fuentes MD [address] [place] [address] Social History Tobacco Use Types Packs/Day Years Used Date Smoking Tobacco: Never Alcohol Use Standard Drinks/Week Comments No 0 (1 standard drink = 0.6 oz pur e alcohol) Comments Unknown Sex and Gender Information Value Date Recorded Sex Assigned at Female 09/01/2024 10:13 AM SHOE TURNER Legal Sex Female 10:21 PM CDT Gender Identity Female 03/29/2025 8:02 PM CDT Sexual Orientation Not on file Occupation Industry Job Start Date Job End Date retired Not on file Not on file Not on file documented as of this encounter Plan of Treatment Upcoming Encounters Date Type Department Care Team (Late st Contact Info) Description 05/17/2025 2:00 PM CDT Office Visit [facility] [place] [address] Stella Llanos MD [address] [place] [address] 06/14/2025 1:00 AM CDT Allied Health/Nurse Visit [facility] ld [address] [place] [address] Christel Lu MD [address] [place] [address] 11/02/2025 1:30 PM CDT [facility] [address] [place] [address] Maciel Wang, PATanishaC [address] [place] [address] 11/02/2025 1:30 PM CDT Allied Health/Nurse [facility] [address] [place] [address] Christel Lu MD [address] [place] [address] documented as of this encounter Visit Diagnoses Not on filedocumented in this encounter Additional Health Concerns Infection Onset Date Last Indicated Resolved Time COVID-19 Rule Out 04/24/2022 04/24/202204/24/2022 4:06 AM CDT Respiratory Rule Out 03/29/2025 03/29/2025 025 1:55 PM CDT documented as of this encounter Care Teams Rail Detector Car Operator Relationship Specialty Start Date End Date Toy Warren MD [address] [place] [address] PCP - General INTERNAL MEDICINE 02/06/17 06/10/17 Gino Meyer MD [address] [place] [phone] PCP - General INTERNAL MEDICINE 06/11/17 Santos Fuentes MD [address] [place] [phone] [place] [employer]keman CARDIOVASCULAR DISEASE 02/06/17 08/31/24 Shana Adams NP [address] [place] [address] Referring Physician Nurse Practitioner Family 02/27/23 Christel Lu MD [address] [place] [address] EP Freight Brakeman CLINICAL CARDIAC ELECTROPHYSIOLOGY 06/12/23 Stella Llanos MD [address] [place] [address] [place] [employer] CARDIOVASCULAR DISEASE 09/28/24 documented as of this encounter
[2025-05-07 09:48] LABS: Alanine Aminotransferase 16 U/L (6-35); Albumin Level 4.4 g/dL (3.5-5.1); Alkaline Phosphatase 93 U/L (38-126); Anion Gap 17 mmol/L (4-12); Aspartate Amino Transferase 39 U/L (14-36); Bilirubin,Total 0.8 mg/dL (0.2-1.3); Blood Urea Nitrogen 71 mg/dL (7-17); Calcium 9.8 mg/dL (8.4-10.2); Carbon Dioxide 27 mmol/L (22-30); Chloride 90 mmol/L (98-107); Creatine Kinase 190 U/L (30-135); Estimated CRCL calculation 14 ml/min; Estimated Glomerular Filt Rate 19; Glucose 207 mg/dL (65-110); Osmolality Calculated 304 mOsm/kg (285-295); Potassium 4.4 mmol/L (3.4-5.0); Sodium 134 mmol/L (137-145); Total Protein 8.8 g/dL (6.3-8.2)
[2025-05-07 09:50] LABS: INR 1.1; Partial Thromboplastin Time 27.8 Sec (23.9-30.70); Prothrombin Time 11.8 Seconds (9.50-12.1)
[2025-05-07 10:00] LABS: Troponin I 0.079 ng/mL (0.000-0.034)
[2025-05-07 10:06] LABS: Magnesium 2.6 mg/dL (1.6-2.3)
[2025-05-07 10:58] LABS: NT Pro B Type Natriuretic Pept 5700 pg/mL (19.9-100)
[2025-05-07 13:53] LABS: Add Urine Microscopic? NO; Appearance Urine Clear (Clear); Glucose Urine UA 2+ (Negative); Leukocyte Esterase Ur Negative LEU/UL (Negative); Nitrate Urine Negative (Negative); Specific Grav Ur 1.010 (1.010-1.020)
== END 2025-05-07 14:00 | disposition short-term general hospital (02) ==
PROVIDERS: Emergency Provider Emergency Medicine; PCP Internal Medicine
DX: I50.9 Heart failure, unspecified (principal); E86.0 Dehydration; J81.1 Chronic pulmonary edema; N17.9 Acute kidney failure, unspecified; R79.89 Other specified abnormal findings of blood chemistry; M62.82 Rhabdomyolysis; N18.9 Chronic kidney disease, unspecified; E78.5 Hyperlipidemia, unspecified; I25.10 Atherosclerotic heart disease of native coronary artery without angina pectoris; E87.8 Other disorders of electrolyte and fluid balance, not elsewhere classified; W18.39XA Other fall on same level, initial encounter; Y92.121 Bathroom in nursing home as the place of occurrence of the external cause
CPT/HCPCS: 36415; 70450; 70486; 71250; 72125; 73010; 74176; 80053; 81003; 82550; 83735; 83880; 84484; 85025; 85610; 85730; 93005; 99285

== ENCOUNTER 2025-05-21 20:45 | Emergency (ER) | payer MEDICARE, MEDICAID, SELFPAY ==
[2025-05-21] VITALS (12 sets, daily range): BP systolic 72–105; BP diastolic 56–81; PULSE 93–99; RESP 13–25; TEMP 35.8; O2SAT 94–99
--- NOTE | ~2025-05-21 | CT_ITS ---
CT HEAD NON-CONTRAST Clinical History: FALL. CONFUSION. Comparison: CT head 05/07/2025 Technique: Unenhanced axial images skull base to vertex Coronal, sagittal reformats CT images acquired with automatic exposure control for dose reduction DLP: 605 mGy-cm Findings: Minimal white matter changes from chronic microvascular ischemic disease. Sulci, ventricles: Unremarkable. No intracerebral hemorrhage. No evidence acute territorial infarct. No mass effect, midline shift. Bony calvarium intact. Visualized paranasal sinuses: Clear. Mastoid air cells: Clear. IMPRESSION: 1. No acute intracranial findings. Reviewed, dictated and finalized at location R.
--- NOTE | ~2025-05-21 | XR_ITS ---
Examination: XR chest 1V portable Clinical History: FALL. WEAKNESS. CONFUSION. LOW BACK PAIN. Comparison: 10/30/2024 Technique: Portable AP Findings: Right ICD. Cardiomegaly. Mildly increased interstitial markings. No pneumothorax. Left CP angle blunting likely epicardial fat pad. No acute bony abnormality. IMPRESSION: 1. No acute cardiopulmonary findings given portable technique. Reviewed, dictated and finalized at location R.
--- NOTE | ~2025-05-21 | CT_ITS ---
EXAMINATION: CT lumbar spine wo con DATE: 05/21/2025 21:27 INDICATION: Low back pain. Fall. TECHNIQUE: Computed tomography (CT) of the lumbar spine was performed without intravenous contrast. Automated exposure control and iterative reconstruction technique were employed. The dose-length product was 1157.36 mGy-cm. COMPARISON: Lumbar spine CT 02/09/2024 FINDINGS: There are trace right and small left pleural effusions. Cardiomegaly is noted. There are gallstones in the gallbladder, which is normal in size. There is a 1.9 cm cyst in right kidney. There is 5 mm anterolisthesis of L4 on L5. Vertebral body heights are normal. There is severely decreased disc height at L2-L3, mildly decreased disc height at L4-L5, and severely decreased disc height at L5-S1. There is multilevel severe facet joint osteoarthritis. The discs are bulging from L1-L2 through L5-S1. There is mild bilateral neural foraminal stenosis from L1-L2 through L5-S1. There is mild central canal stenosis at the disc levels from L1-L2 through L5-S1. IMPRESSION: 1. No fracture. 2. Severe lumbar spondylosis. 3. Small left pleural effusion. Reviewed, dictated and finalized at location E.
[2025-05-21] MEDS: SODIUM CHLORIDE 0.9% IV 1,000 ML 999 ML IV CONT (20:45)
--- NOTE | 2025-05-21 20:47 | ECG_ITS ---
Test Date: 2025-05-21 20:56:01 Measurements Intervals Bland Rate: 97 P: 58 HI: 156 QRS: -58 QRSD: 151 T: 116 QT: 382 QTc: 486 Interpretive Statements SINUS RHYTHM LEFT AXIS DEVIATION LEFT ATRIAL ENLARGEMENT LEFT BUNDLE BRANCH BLOCK ABNORMAL ECG Compared to ECG 05/07/2025 09:30:16 HEART RATE HAS DECREASED Electronically Signed On 05-22-2025 07:40:44 CDT by Tu Tirado D.O.
--- NOTE | 2025-05-21 20:47 | ED.FALL ---
HPI - Fall General Chief Complaint: Fall Stated Complaint: fall Time Seen by Provider: 05/21/25 20:46 Source: patient and EMS Mode of arrival: EMS Limitations: clinical condition History of Present Illness HPI Narrative: Patient is an 85-year-old female from the nursing facility here due to a fall and hypotension and cold and clammy with possible jaundice skin. Patient initially did not want come to the hospital but she was talked into coming in for evaluation due to her vital signs and examination findings. Patient has lower back pain but that is been going on for a period of time. Patient on Eliquis. complaint: fall Onset (ago): day(s) (One) Fall from: chair Fall witnessed: no Place fall occurred: home Loss of consciousness: unsure Prolonged down time: no Symptoms prior to fall: other (Unknown) Context: tripped/slipped and history of frequent falls Location of injury: back (Lower back) and buttocks (Lower back) Severity: moderate Severity scale (1-10): 3 Quality: sharp Associated symptoms (after fall): weakness and unable to walk Related Data Home Medications ?Medication ?Instructions ?Recorded ?Confirmed ?Last Taken ?Type atorvastatin 10 mg tablet 10 mg PO DAILY 11/13/22 05/21/25 04/03/24 20:00 History montelukast 10 mg tablet 10 mg PO DAILY 11/13/22 05/21/25 04/03/24 20:00 History spironolactone 25 mg tablet 25 mg PO BID 11/13/22 05/21/25 04/04/24 08:00 History aspirin 81 mg tablet 81 mg PO DAILY 11/23/23 05/21/25 04/04/24 08:00 History sacubitril 24 mg-valsartan 26 mg 1 tablet PO BID 11/23/23 05/21/25 04/04/24 08:00 History tablet (Entresto) empagliflozin 10 mg tablet 10 mg PO DAILY 01/25/24 05/21/25 04/04/24 08:00 History (Jardiance) gabapentin 100 mg capsule 300 mg PO BID 04/05/24 05/21/25 04/04/24 17:00 History anastrozole 1 mg tablet 1 mg PO DAILY 08/28/24 05/21/25 Unknown History apixaban 5 mg tablet (Eliquis) 5 mg PO BID 08/28/24 05/21/25 Unknown History duloxetine 30 mg capsule,delayed 30 mg PO BID 08/28/24 05/21/25 Unknown History release sprinkle hydrocodone 5 mg-acetaminophen 325 0.5 tablet PO QAM pain 08/28/24 05/21/25 Unknown History mg tablet acetaminophen 650 mg 650 mg PO Q8H PRN pain 10/01/24 05/21/25 Unknown History tablet,extended release (Tylenol Arthritis Pain) digoxin 125 mcg (0.125 mg) tablet 0.125 mg PO DAILY 10/30/24 05/21/25 Unknown History multivitamin-ferrous 1 tablet PO DAILY 10/30/24 05/21/25 Unknown History fumarate-folic acid 18 mg-400 mcg tablet (Centrum Complete) nitroglycerin 0.4 mg sublingual 0.4 mg sublingual ONCE 10/30/24 05/21/25 Unknown History tablet hydrocodone 5 mg-acetaminophen 325 1 tablet PO QHS 05/21/25 05/21/25 Unknown History mg tablet Allergies Allergy/AdvReac Type Severity Reaction Status Date / Time TARA Inhibitors AdvReac Mild Cough Verified 05/21/25 22:02 Review of Systems Review of Systems: All systems reviewed & are unremarkable except as noted in HPI and below Constitutional: Constitutional: Reports no additional constitutional complaints Eyes: Eyes: Reports no additional eye complaints ENT: Reports system reviewed and no additional complaints, except as documented Cardiovascular: Cardiovascular: Reports no additional cardiovascular complaints Respiratory: Respiratory: Reports no additional respiratory complaints Gastrointestinal: Gastrointestinal: Reports no additional gastrointestinal complaints Genitourinary: Genitourinary: Reports no additional female genitourinary complaints Musculoskeletal: Musculoskeletal: Reports no additional musculoskeletal complaints Integumentary/Breasts: Skin/Breast: Reports system reviewed and no additional complaints, except as docu Neurologic: Reports system reviewed and no additional complaints, except as documented Psychiatric: Psychiatric: Reports no additional psychiatric complaints Endocrine: Endocrine: Reports no additional endocrine complaints Hematologic/Lymphatic: Hematologic/Lymphatic: Reports no additional hematologic/lymphatic complaints Allergic/Immunologic: Allergic/Immunologic: Reports no additional allergic/immunologic complaints PMFSH Past Medical History Medical History Hyperlipidemia Chronic kidney disease Nonischemic cardiomyopathy Echocardiogram 2014 demonstrate EF 30 35% with severe generalized left globe ventricular systolic dysfunction Hip osteoarthritis 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 Placed due to nonischemic cardiomyopathy and paroxysmal narrow complex arrhythmia H/O mastectomy Family History Family History Father , at age 81 Family history of coronary artery disease Social History Social History Social History: She was for 56 years but has been since approximately 2016. 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 She raised 3 children. Her oldest son of prostate cancer within the last year. Code status: DNR/DNI per patient request and confirmed with prior the records Surrogate decision maker: Son Smoking status: Never smoker Second hand tobacco smoke exposure: No Alcohol intake: never Substance use: never Substance use type: does not use Do You Feel Safe in your Home?: Yes Lack of Transportation: No Lack of Food: Never True Current Housing: I Have Housing Concerned About Future Housing: No Difficulty Paying Gas/Electric Bills: No Difficulty Paying for Meds: No Currently Unemployed: No Education: High School Diploma/GED Difficulty w/ Childcare or Family Care: No Spiritual care concerns: No Exam Const: General: ill appearing Nutritional Appearance: well nourished Limitations: altered mental status and other limitations (Clinical condition) HENMT: Head: normal to inspection Ears: external ears normal Face/Nose/Sinus: Normal external nose present Eyes: Conjunctivae: conjunctivae normal Pupils: Equal, round and reactive pupils present EOM: EOMs intact bilaterally Neck: Neck: normal visual inspection Chest: Chest palpation & inspection: normal inspection of the chest Resp: Effort & Inspection: normal respiratory effort and not labored Auscultation: clear to auscultation bilaterally and no crackles Cardio: Rate: regular rate Rhythm: regular rhythm Heart sounds: no murmurs GI: Inspection: non-distended GI Palp: Yes Soft to palpation and No Tenderness to palpation present (GI) Auscultation: normal bowel sounds : General: Yes bladder normal to palpation Back/Spine/Pelvis: Back: no CVA tenderness Skin: General skin exam: No normal color and jaundice (Questionable of the face but she recently had face injury with ecchymosis) Rashes: no rashes Wounds: no wounds Neuro: General: moves all extremities and no meningeal signs Other: Fast exam negative, NIH is 0, GCS is 15 Extrem: General: normal to inspection, no clubbing, cyanosis or edema and no pedal edema Psych: Mental Status: mental status grossly abnormal Affect: normal affect Attitude: cooperative Other: Awake alert oriented x1 Course Vital Signs Vital signs: Vital Signs Temperature 35.8 C L 05/21/25 20:55 Pulse Rate 97 05/21/25 20:55 Respiratory Rate 18 05/21/25 20:55 Blood Pressure 100/66 05/21/25 20:55 Pulse Oximetry 98 05/21/25 20:55 Oxygen Delivery Room Air 05/21/25 20:55 Temperature 35.8 C L 05/21/25 20:55 Pulse Rate 97 05/21/25 23:46 Respiratory Rate 25 H 05/21/25 23:46 Blood Pressure 98/81 L 05/21/25 23:46 Pulse Oximetry 98 05/21/25 23:46 Oxygen Delivery Room Air 05/21/25 23:46 MDM - Fall MDM Narrative Medical decision making narrative: Patient is an 85-year-old female with a fall and lower back pain and hypotension. Will do general workup at this time to include sepsis. IV fluids. Patient will be transferred to [facility] for higher level medical care. Lab Data Attestation: I reviewed the patient's lab results. 05/21/25 21:09 05/21/25 21:09 Labs: Lab Results 05/21/25 05/21/25 05/21/25 Range/Units 20:51 21:09 21:45 WBC 10.3 (4.8-10.8) K/mm3 RBC 3.89 L (4.20-5.40) M/mm3 Hgb 11.4 L (11.7-13.8) g/dL Hct 35.7 (35.0-42.0) % MCV 91.8 (78.0-102.0) fL MCH 29.3 (27.0-31.0) pg MCHC 31.9 L (32-36) g/dL RDW 19.1 H (11.6-14.4) % Plt Count 236 (150-420) K/mm3 MPV 10.4 (9.2-11.8) fl Immature Gran % (Auto) 0.9 H (0.0-0.0) % Neut % (Auto) 84.3 H (50.0-70.0) % Lymph % (Auto) 5.5 L (18.0-42.0) % Sevier % (Auto) 7.3 (2.0-11.0) % Eos % (Auto) 1.6 (1.0-6.0) % Baso % (Auto) 0.4 (0.0-1.0) % Lymph # (Auto) 0.57 L (1.10-4.50) K/mm3 Sevier # (Auto) 0.75 (0.10-0.90) K/mm3 Eos # (Auto) 0.16 (0.02-0.50) K/mm3 Baso # (Auto) 0.04 (0.00-0.10) K/mm3 Abs Immat Gran (auto) 0.09 H (0.00-0.00) K/mm3 Absolute Neuts (auto) 8.67 H (1.70-7.20) K/mm3 Absolute Nucleated RBC 0.05 H (0.00-0.00) K/mm3 Nucleated RBC % 0.5 H (0-0.0) % Sodium 124 L (137-145) mmol/L Potassium 4.9 (3.4-5.0) mmol/L Chloride 85 L (98-107) mmol/L Carbon Dioxide 25 (22-30) mmol/L Anion Gap 14 H (4-12) mmol/L BUN 56 H D (7-17) mg/dL Creatinine 1.45 H (0.7-1.0) mg/dL Estim Creat Clear Calc 25 ml/min Estimated GFR 34 L (59 - ) Glucose 136 H (65-110) mg/dL POC Capillary Glucose 127 H (65-105) mg/dl Calculated Osmolality 275 L (285-295) mOsm/kg Lactic Acid 2.8 H (0.4-2.0) mmol/L Calcium 9.0 (8.4-10.2) mg/dL Total Bilirubin 1.4 H (0.2-1.3) mg/dL AST 38 H (14-36) U/L ALT 18 (6-35) U/L Alkaline Phosphatase 114 (38-126) U/L Total Creatine Kinase 24 L (30-135) U/L Troponin I 0.092 H* (0.000-0.034) ng/mL NT-Pro-B Natriuret Pep 75198 H (19.9-100) pg/mL Total Protein 7.5 (6.3-8.2) g/dL Albumin 4.0 (3.5-5.1) g/dL Urine Color Yellow (Yellow) Urine Appearance Clear (Clear) Urine pH 5.5 (5.0-8.0) Ur Specific [place] 1.015 (1.010-1.020) Urine Protein Trace H (Negative) Urine Glucose (UA) Negative (Negative) Urine Ketones Trace H (Negative) Ur Blood (Man) Negative (Negative) Urine Nitrate Negative (Negative) Urine Bilirubin Negative (Negative) Urine Urobilinogen 0.2 (0.2-1.0) mg/dL Leukocyte Esterase Rfl Negative (Negative) BERNIE/UL Amorphous Sediment Few H (None) Hyaline Casts 10-14 H (None) /lpf 05/21/25 Range/Units 23:43 WBC (4.8-10.8) K/mm3 RBC (4.20-5.40) M/mm3 Hgb (11.7-13.8) g/dL Hct (35.0-42.0) % MCV (78.0-102.0) fL MCH (27.0-31.0) pg MCHC (32-36) g/dL RDW (11.6-14.4) % Plt Count (150-420) K/mm3 MPV (9.2-11.8) fl Immature Gran % (Auto) (0.0-0.0) % Neut % (Auto) (50.0-70.0) % Lymph % (Auto) (18.0-42.0) % Sevier % (Auto) (2.0-11.0) % Eos % (Auto) (1.0-6.0) % Baso % (Auto) (0.0-1.0) % Lymph # (Auto) (1.10-4.50) K/mm3 Sevier # (Auto) (0.10-0.90) K/mm3 Eos # (Auto) (0.02-0.50) K/mm3 Baso # (Auto) (0.00-0.10) K/mm3 Abs Immat Gran (auto) (0.00-0.00) K/mm3 Absolute Neuts (auto) (1.70-7.20) K/mm3 Absolute Nucleated RBC (0.00-0.00) K/mm3 Nucleated RBC % (0-0.0) % Sodium (137-145) mmol/L Potassium (3.4-5.0) mmol/L Chloride (98-107) mmol/L Carbon Dioxide (22-30) mmol/L Anion Gap (4-12) mmol/L BUN (7-17) mg/dL Creatinine (0.7-1.0) mg/dL Estim Creat Clear Calc ml/min Estimated GFR (59 - ) Glucose (65-110) mg/dL POC Capillary Glucose (65-105) mg/dl Calculated Osmolality (285-295) mOsm/kg Lactic Acid 2.3 H (0.4-2.0) mmol/L Calcium (8.4-10.2) mg/dL Total Bilirubin (0.2-1.3) mg/dL AST (14-36) U/L ALT (6-35) U/L Alkaline Phosphatase (38-126) U/L Total Creatine Kinase (30-135) U/L Troponin I (0.000-0.034) ng/mL NT-Pro-B Natriuret Pep (19.9-100) pg/mL Total Protein (6.3-8.2) g/dL Albumin (3.5-5.1) g/dL Urine Color (Yellow) Urine Appearance (Clear) Urine pH (5.0-8.0) Ur Specific [place] (1.010-1.020) Urine Protein (Negative) Urine Glucose (UA) (Negative) Urine Ketones (Negative) Ur Blood (Man) (Negative) Urine Nitrate (Negative) Urine Bilirubin (Negative) Urine Urobilinogen (0.2-1.0) mg/dL Leukocyte Esterase Rfl (Negative) BERNIE/UL Amorphous Sediment (None) Hyaline Casts (None) /lpf Imaging Data Attestation: I personally reviewed and interpreted this imaging study as follows: Radiologist's impression: CT scan of the head was negative for acute process CT scan of the lumbar spine is negative for acute process Chest x-ray shows CHF pattern ECG Data EKG #1: Attestation: I personally reviewed and interpreted this ECG as follows: ECG completion date: 05/21/25 ECG completion time: 21:21 EKG Interpretation: normal rate, sinus rhythm, non-specific ST changes, widened QRS, LBBB (Seen prior EKGs), normal QT and left axis Discharge Plan Discharge Clinical Impression: Acute hyponatremia, Acute hypotension, Acute non-ST elevation myocardial infarction (NSTEMI), General weakness, Acute dehydration Acute exacerbation of CHF (congestive heart failure) Qualifiers: Heart failure type: unspecified Qualified Code(s): I50.9 - Heart failure, unspecified Patient Disposition: Acute Care Hospital Condition: Stable Patient Language: Belarusian Prescriptions: No Action atorvastatin 10 mg Tablet 10 mg PO DAILY spironolactone 25 mg Tablet 25 mg PO BID Rx Instructions: Morning and noon montelukast 10 mg Tablet 10 mg PO DAILY aspirin 81 mg Tablet 81 mg PO DAILY sacubitril-valsartan [Entresto] 24-26 mg tablet 1 tablet PO BID Jardiance 10 mg tablet 10 mg PO DAILY furosemide 40 mg Tablet 40 mg PO BID Qty: 60 0RF hydrocodone-acetaminophen 5-325 mg tablet 1 tablet PO QHS duloxetine 30 mg capsule, delayed rel sprinkle 30 mg PO BID Eliquis 5 mg tablet 5 mg PO BID anastrozole 1 mg tablet 1 mg PO DAILY hydrocodone-acetaminophen 5-325 mg tablet 0.5 tablet PO QAM Rx Instructions: 0.5MG PO Q AM AND AFTERNOON. 5/325MG AT BEDTIME acetaminophen [Tylenol Arthritis Pain] 650 mg tablet extended release 650 mg PO Q8H PRN (Reason: pain) nitroglycerin 0.4 mg tablet, sublingual 0.4 mg sublingual ONCE digoxin 125 mcg (0.125 mg) tablet 0.125 mg PO DAILY Centrum Complete 18-400 mg-mcg tablet 1 tablet PO DAILY gabapentin 100 mg capsule 300 mg PO BID Follow-up/Referrals: Gino Meyer MD [Primary Care Provider, Internal Medicine] Time of Disposition: 23:43
--- OUTSIDE RECORDS SUMMARY | 2025-05-21 20:47 | XMS_ITS | Encounter Summary ---
Author Organization [facility] Address [address] [place] [address] Care Team Providers Care Leather Splitter Name Role Phone Toy Warren MD Primary Care Provider [phone] Santos Fuentes MD Unavailable [phone] Gino Meyer MD Primary Care Provider [phone] Shana Adams NP Unavailable Unavailable Christel Lu MD Unavailable Stella Llanos MD Unavailable Encounter Details Date Type Department Care Team (Late st Contact Info) Description 01/31/2017 Abstract [facility] [address] [place] [address] Santos Fuentes MD [address] [place] [address] Social History Tobacco Use Types Packs/Day Years Used Date Smoking Tobacco: Never Alcohol Use Standard Drinks/Week Comments No 0 (1 standard drink = 0.6 oz pur e alcohol) Comments Unknown Sex and Gender Information Value Date Recorded Sex Assigned at Female 09/01/2024 10:13 AM [employer] Legal Sex Female 10:21 PM CDT Gender Identity Female 03/29/2025 8:02 PM CDT Sexual Orientation Not on file Occupation Industry Job Start Date Job End Date retired Not on file Not on file Not on file documented as of this encounter Plan of Treatment Upcoming Encounters Date Type Department Care Team (Late st Contact Info) Description 06/14/2025 1:00 AM CDT Allied Health/[facility] [address] [place] [address] [phone] Christel Lu MD [address] [place] [address] 09/22/2025 1:00 PM [employer] Office Visit [facility] [place] [address] Stella Llanos MD [address] [place] [address] 11/02/2025 1:30 PM CDT Office Visit [facility] [address] [place] [phone] Maciel Wang PA-C [address] [place] [phone] 11/02/2025 1:30 PM CDT Allied Health/Nurse Visit [facility] [address] [place] [address] Christel Lu MD [address] [place] [address] documented as of this encounter Visit Diagnoses Not on filedocumented in this encounter Additional Health Concerns Infection Onset Date Last Indicated Resolved Time COVID-19 Rule Out 04/24/2022 04/24/2022 04/24/2022 4:06 AM CDT Respiratory Rule Out 03/29/2025 03/29/2025 025 1:55 PM CDT documented as of this encounter Care Teams Leather Splitter Relationship Specialty Start Date End Date Toy Warren MD [address] [place], [place] [id number] PCP - General INTERNAL MEDICINE 02/06/17 06/10/17 Gino Meyer MD [address] [place] [id number] PCP - General INTERNAL MEDICINE 06/11/17 Santos Fuentes MD [address] [place] [address] [employer] CARDIOVASCULAR DISEASE 02/06/17 08/31/24 Shana Adams NP [address] [place] [address] Referring Physician Nurse Practitioner Family 02/27/23 Christel Lu MD [address] [place] [address] [employer] CLINICAL CARDIAC ELECTROPHYSIOLOGY 06/12/23 Stella Llanos MD [address] [place] [address] [employer] CARDIOVASCULAR DISEASE 09/28/24 documented as of this encounter
--- OUTSIDE RECORDS SUMMARY | 2025-05-21 20:47 | XMS_ITS | Clinical Summary ---
Author Organization [facility] Address [address] [place] [address] Care Team Providers Care Supervisor [employer] Name Role Phone iGno Meyer MD Primary Care Provider Christel Lu MD Unavailable Toro Freire MD [...] tablet by mouth daily. 11/24/19 23 Active atorvastatin (LIPITOR) 10 MG tablet [...] times daily as needed for Pain. Active furosemide (LASIX) 20 MG tablet Take 3 tablets (60 mg total) by mouth 2 (two) times daily. 30 tablet 04/06/20 25 Active ELIQUIS 5 MG tabletIndication s:Atrial fibrillation (CMS/HCC HHS/HCC) 1 TAB BY MOUTH 2 TIMES DAILY 60 tablet 2 05/03/20 25 Active metoprolol succinate ER (TOPROL-XL) 25 MG 24 hr tablet Take 0.5 tablets (12.5 mg total) by mouth daily for 30 days. 15 tablet 05/16/20 25 025 Active empagliflozin (JARDIANCE) 10 MG tablet Take 1 tablet (10 mg total) by mouth daily. 30 tablet 12/06/19 23 025 Discontinued(St op Taking at Discharge) ELIQUIS 5 MG tabletIndication s:Atrial fibrillation (CMS/HCC HHS/HCC) 1 TAB BY MOUTH 2 TIMES DAILY 60 tablet 2 02/11/20 25 025 Discontinued metOLazone (ZAROXOLYN) 5 MG tablet Take 1 tablet (5 mg total) by mouth daily as needed (Worsening swelling or weight gain more than 3 pounds). 30 tablet 04/06/20 25 025 Discontinued(St op Taking at Discharge) midodrine (PROAMATINE) 5 MG tablet Take 1 tablet (5 mg total) by mouth 3 (three) times daily with meals for 30 days. 90 tablet 04/06/20 25 025 cefdinir (OMNICEF) 300 MG Cap capsule Take 1 capsule (300 mg total) by mouth daily for 5 days. 5 capsule 05/15/20 25 025 Active Problems Problem Noted Date Diagnosed Date Chronic asymptomatic hypotension 2025 Atherosclerosis of coronary artery 2025 Abnormal urinalysis 2025 Fluid imbalance 2025 Acute on chronic heart failure ([facility]) 2025 Acute UTI 2025 BREEZY (acute kidney injury) 2025 Ankle swelling 2025 Asymptomatic PVCs 2025 Centeno cyst 2025 Edema 2025 Elevated troponin 2025 Fall 2025 Hematoma 2025 Hyponatremia 2025 Lactic acidosis 2025 Leg pain 2025 Lumbar radiculopathy 2025 Other disorders of electroly te and fluid balance, not elsewhere classified 2025 Pleural effusion 2025 Pneumonia 2025 Pulmonary edema ([facility]) 2025 Rhabdomyolysis 2025 Serum digoxin level below therapeutic range 04/19 Tachycardia 2025 CHF (congestive heart failure) ([facility]) 03/29/2025 Acute on chronic congestive heart failure ([facility]) 03/29/2025 Overview (2025): Echocardiogram 2014 with severe generally systolic dysfunction EF 30 35%, Malignant neoplasm of breast ([facility]) 1 09/23/2022 Overview (2025): Right S/P coronary artery stent placement 03/18/2021 Hyperlipidemia 07/10/2017 Stage 2 chronic kidney disease 06/14/2014 Non-ischemic cardiomyopathy ([facility]) AICD (automatic cardioverter/defibrillator) pres ent Systolic heart failure ([facility]) Resolved Problems Problem Noted Date Diagnosed Date Resolved Date Hypotension due to hypovolemia 04/25/2022 06/13/2023 Obesity (BMI 30-39.9) 07/10/20172021 Encounters Date Type Department Care Team Description 05/18/2025 Orders Only [facility] [address] [place] [address] Toro Freire MD 05/17/2025 2:00 PM CDT Office Visit [facility] [address] [place] [address] Toro Freire MD Heart Problem 05/17/2025 1:45 PM CDT - 05/17/2025 11:59 PM CDT Hospital Encounter [facility] [address] [place] [address] Toro Freire MD Discharge Disposition: Home or Self Care (Routine Discharge) 05/17/2025 Travel 05/17/2025 Telephone [facility] [address] [place] [address] Toro Freire MD Medication Request 05/14/2025 Telephone [facility] [address] [place] [address] Toro Freire MD Appointment Reminder 2025 3:01 PM CDT - 05/15/2025 4:08 PM CDT Hospital Encounter [facility] [place] [address] Nava Morrison MD Jerkovich, Adria, MD Smith, Marissa L, NP Doan, Melissa K, PA Conti, John R, PA-C Duenas, Vincent J, MD Discharge Disposition: [facility] 2025 Travel 05/05/2025 Telephone [facility] [address] [place] [address] Toro Freire MD Appointment Reminder 05/03/2025 Telephone [facility] [address] [place] [address] Christel Lu MD Appointment Request 03/31/2025 Orders Only [facility] [address] [place] [address] Toro Freire MD 03/30/2025 Telephone [facility] [address] [place] [address] Toro Freire MD Reschedule 03/29/2025 6:33 PM CDT - 04/06/2025 1:56 PM CDT Hospital Encounter [facility] [address] [place] [address] Diego Rojas MD Kim, MD Debra Al Srikanth, MD Subramaniyam, Rajamurugan R, MD Rangu, Venu Mohan, MD Discharge Disposition: Home or Self Care (Routine Discharge) 03/29/2025 11:31 AM CDT - 03/29/2025 5:53 PM CDT Emergency [facility] [address] [place] [address] eJff [place], Breathing Problem Discharge Disposition: Higher Level of Care 03/29/2025 10:51 AM CDT - 03/29/2025 11:30 AM CDT Hospital Encounter [facility] [address] [place] [address] Toro Freire MD Discharge Disposition: Home or Self Care (Routine Discharge) 03/29/2025 Travel 03/26/2025 Telephone [facility] [address] [place] [address] Toro Freire MD Appointment Reminder 03/16/2025 Orders Only [facility] [address] [place] [address] Toro Freire MD 03/08/2025 9:30 AM CDT Allied Health/Nurse Visit [facility] [address] [place] [address] Christel Lu MD In Clinic Device Check 03/08/2025 9:30 AM CDT Office Visit [facility] [address] [place] [phone] Maciel Wang, JOY Follow Up; Cardiomyopathy; Other (ICD management.) 03/08/2025 Travel 03/05/2025 Telephone [facility] [address] [place] [address] Christel Lu MD Appointment Reminder from Last 3 Months Immunizations Immunization Administration Dates Next Due Fluad influenza vaccine, Tk drivalent (aIIV4), Inactivated, adjuvanted, preservative free, 0.5 mL,IM use 05/25/2020 Fluzone (IIV3, Trivalent, 0. 5 ML Prefilled Syringe) 05/12/2025(Deferred: Other),05/09/2025(Deferred: Other - reordered for 05/10 per patient request) Influenza (Generic) 05/22/2019 Influenza Adult (Generic) 05/02/2018,07/05/2017 [...] drink = 0.6 oz pur e alcohol) [facility] Utilities Answer Date Recorded In the past [address] [facility] [employer], [employer], or water [email or web address] threatened to shut off services in your home? No 2025 Humiliation, Afraid, Rape, and Kick questionnair e Answer Date Recorded Within the last year, have y ou been afraid of your partner or ex-partner? No 2025 Within the last year, have y ou been humiliated or emotionally abused in other ways by your partner or ex-partner? No Within the last year, have y ou been kicked, hit, slapped, or otherwise physically hurt by your partner or ex-partner? No 2025 Within the last year, have y ou been raped or forced to have any kind of sexual activity by your partner or ex-partner? No 2025 Overall Financial Resource Strain (CARDIA) Answe r Date Recorded How hard is it for you to pa y for the very basics like food, housing, medical care, and heating? Not hard at all 2025 Hunger Vital Sign Answer Date Recorded Within the past 12 months, y ou worried that your food would run out before you got the money to buy more. Never true 05/07/20 25 Within the past 12 months, t he food you bought just didn't last and you didn't have money to get more. Never true 2025 PRAPARE - Transportation Answer Date Re corded In the past 12 months, has l ack of transportation kept you from medical appointments or from getting medications? No 04/19 In the past 12 months, has l ack of transportation kept you from meetings, work, or from getting things needed for daily living? No 2025 Housing Stability Vital Sign Answer Ramakrishna e [...] a nursing home (including now)? Yes 11/29/2022 Housing Stability Vital Sign Answer Ramakrishna e Recorded In the last 12 months, was t here a time when you were not able to pay the mortgage or rent on time? No 2025 In the past 12 months, how m any times have you moved where you were living? 0 2025 At any time in the past 12 m [facility], were you homeless or living in a nursing home (including now)? No 2025 Comments No Sex and Gender Information Value Date Recorded Sex Assigned at Female 09/01/2024 10:13 AM [employer] Legal Sex Female 10:21 PM CDT Gender Identity Female 03/29/2025 8:02 PM CDT Sexual Orientation Not on file Occupation Industry Job Start Date Job End Date retired Not on file Not on file Not on file Last Filed Vital Signs Vital Sign Reading Time Taken Comments Blood Pressure 108/59 05/17/2025 2:24 PM CDT Pulse 113 05/17/2025 2:24 PM CDT Temperature 36.7 C (98.1 F) 05/15/2025 11:40 AM CDT Respiratory Rate 16 05/17/2025 2:24 PM CDT Oxygen Saturation 98% 05/17/2025 2:24 PM CDT Inhaled Oxygen Concentration - - Weight 71.2 kg (157 lb) 05/17/2025 2:24 PM CDT Height 152.4 cm (5') 05/17/2025 2:24 PM CDT Body Mass Index 30.66 05/17/2025 2:24 PM CDT Plan of Treatment Upcoming Encounters Date Type Department Care Team (Late st Contact Info) Description 06/14/2025 1:00 AM CDT Allied Health/Nurse Visit [facility] [address] [place] [address] Christel Lu MD [address] [place] [address] 09/22/2025 1:00 PM [employer] Office Visit [facility] [place] [address] Toro Freire MD [address] [place] [address] 11/02/2025 1:30 PM CDT Office Visit [facility] [address] [place] [address] Maciel Wang, PA-C [address] [place] [address] 11/02/2025 1:30 PM CDT Allied Health/Nurse Visit [facility] [address] [place] [phone] Christ[place] [address] Health Maintenance Due Date Last Done Comments DTaP, Tdap and Td Vaccines (1 - Tdap) 1959 Annual Medicare Wellness Visit 2006 Dexa Scan (General) 2006 RSV Immunization or 60+ Years (1 - 1-dose 75+ series) 2016 COVID-19 Vaccine ( season) 2025 06/04/2022, 06/30/2021, 10/13/2020, Additional history exists Influenza Adult (#1) 2025 05/22/2024, 05/30/2023, 06/04/2022, Additional history exists Pneumococcal Vaccine: 50+ Years Completed 05/26/2024, 06/02/2019, 04/09/2017 Zoster Vaccines Completed 08/04/2024, 05/26/2024 Meningococcal B Vaccine Aged Out No l [...] upon discharge Lifestyle No Elina Lambert, RN Patient will return to prior living situation and remain independent in ADLs upon discharge from hospital Lifestyle No Shelly Maravilla RN Medical Devices Implanted Type Area Mica Plate Layer Device Identifier Shelf Expiration Date Model / Serial / Lot Arnica Yaritza Holley Dr-08/30/2023 Implanted:Qty: 1 on 08/30/2023 by Christel Lu MD [facility] [employer] 12/28/2024 [id number] / [id number] / Description:DX: NICM MRI Conditional under following conditions: Static magnetic field of 1.5 T or 3 T, Max spatial gradient field of 5000 Gauss/cm or less, Max slew rate 200 T/m/s , WHOLE BODY TERESO OF 2 W/KG OR LESS, HEAD TERESO 3.2 W/KG OR LESS , Supine or Prone only [employer] Ra-08/30/2023 Implanted:Qty: 1 on 08/30/2023 by Christel Lu MD Lead Implant [employer] 01/04/2025 [id number] / [id number] / [employer] Rv-08/30/2023 Implanted:Qty: 1 on 08/30/2023 by Christel Lu MD Lead Implant [employer] 04/08/2024 [id number] / [id number] / Cv Synergy Xd Jose-Lad- 021 Implanted:02/18 by Russell Bentley MD (Quantity not on file) Stent Coronary LAD [employer] 10/05/2022 [id number] / / [id number] Cv Synergy Xd Jose-Roby-2020 Implanted:02/18 by Russell Bentley MD (Quantity not on file) Stent Coronary LAD [employer] 11/17/2022 [id number] / / [id number] Procedures Procedure Name Priority Date/Time Associated Diagnosis Comments ECG 12-LEAD Routine 05/17/2025 1:55 PM CDT Hyperlipidemia, mixed Essential (primary) hypertension ECG 12-LEAD Routine 05/15/2025 11:50 AM CDT AMMONIA Routine 05/15/2025 10:17 AM CDT CBC W/DIFF AUTOMATED Routine 05/15/2025 10:17 AM CDT BASIC METABOLIC PANEL Routine 05/15/2025 10:17 AM CDT DIGOXIN Routine 05/15/2025 10:17 AM CDT MAGNESIUM Routine 05/15/2025 7:04 AM CDT CULTURE, BACTERIA, BLOOD Routine 05/14/2025 5:00 AM CDT CULTURE, BACTERIA, BLOOD Routine 05/14/2025 4:30 AM CDT LACTIC ACID W REFLEX (SEPSIS) STAT 05/14/2025 4:30 AM CDT TROPONIN, QUANT Routine 05/14/2025 3:45 AM CDT CBC W/DIFF AUTOMATED Routine 05/14/2025 3:45 AM CDT BASIC METABOLIC PANEL Routine 05/14/2025 3:45 AM CDT MAGNESIUM Routine 05/14/2025 3:45 AM CDT URINE BACTERIA CULTURE Routine 05/14/2025 3:27 AM CDT HC URINALYSIS AUTO W/O MICRO STAT 05/14/2025 3:27 AM CDT DIGOXIN Routine 05/14/2025 12:00 AM CDT CBC W/DIFF AUTOMATED Routine 05/14/2025 12:00 AM CDT AMMONIA STAT 05/14/2025 12:00 AM CDT COMPREHENSIVE METABOLIC PANEL Routine 05/14/2025 12:00 AM CDT TROPONIN, QUANT Routine 05/14/2025 12:00 AM CDT ECG 12-LEAD STAT 05/13/2025 11:[address] HEAD WO CON STAT 05/13/2025 11:35 PM CDT POCT GLUCOSE - DOCKED DEVICE Routine 05/13/2025 10:56 PM CDT POCT GLUCOSE - DOCKED DEVICE Routine 05/13/2025 8:08 PM CDT POCT GLUCOSE - DOCKED DEVICE Routine 05/13/2025 3:36 PM CDT POCT GLUCOSE - DOCKED DEVICE Routine 05/13/2025 11:20 AM CDT CBC W/DIFF AUTOMATED Routine 05/13/2025 5:49 AM CDT BASIC METABOLIC PANEL Routine 05/13/2025 5:49 AM CDT MAGNESIUM Routine 05/13/2025 5:49 AM CDT HEPATIC FUNCTION PANEL Routine 05/12/2025 6:01 AM CDT CBC W/DIFF AUTOMATED Routine 05/12/2025 6:01 AM CDT BASIC METABOLIC PANEL Routine 05/12/2025 6:01 AM CDT MAGNESIUM Routine 05/12/2025 6:01 AM CDT MAGNESIUM Routine 05/11/2025 5:47 AM CDT BASIC METABOLIC PANEL Routine 05/11/2025 5:47 AM CDT CBC W/DIFF AUTOMATED Routine 05/11/2025 5:47 AM CDT TYPE & SCREEN Routine 05/10/2025 10:29 PM CDT HEMOGLOBIN AND HEMATOCRIT STAT 05/10/2025 10:29 PM CDT ECG 12-LEAD Routine 05/10/2025 4:04 PM CDT XR CHEST PA+LAT Today 05/10/2025 2:[address] FACIAL BONES WO CON Today 05/10/2025 2:34 PM CDT US SOFT TISS LOW BACK OR ABD WALL Today 05/10/2025 2:28 PM CDT PROCALCITONIN (PCT) Routine 05/10/2025 2 :59 AM CDT MAGNESIUM Routine 05/10/2025 2:59 AM CDT BASIC METABOLIC PANEL Routine 05/10/2025 2:59 AM CDT CBC W/DIFF AUTOMATED Routine 05/10/2025 2:59 AM CDT ECG 12-LEAD Routine 05/09/2025 12:53 PM CDT DIGOXIN Routine 05/09/2025 4:18 AM CDT MAGNESIUM Routine 05/09/2025 4:18 AM CDT BASIC METABOLIC PANEL Routine 05/09/2025 4:18 AM CDT CBC W/DIFF AUTOMATED Routine 05/09/2025 4:18 AM CDT TROPONIN, QUANT Routine 05/08/2025 8:28 PM CDT MAGNESIUM Routine 05/08/2025 3:25 AM CDT DIGOXIN Routine 05/08/2025 3:25 AM CDT CK (CPK) Routine 05/08/2025 3:25 AM CDT LIPID PANEL Routine 05/08/2025 3:25 AM CDT BASIC METABOLIC PANEL Routine 05/08/2025 3:25 AM CDT CBC W/DIFF AUTOMATED Routine 05/08/2025 3:25 AM CDT PRO-BRAIN NATRIURETIC PEPTIDE Routine 05/08/2025 3:24 AM CDT URINE BACTERIA CULTURE Routine 2025 7:15 PM CDT URINALYSIS, AUTO, COMPLETE Routine 2025 7:15 PM CDT COMPREHENSIVE METABOLIC PANEL Routine 2025 5:00 PM CDT HEMOGLOBIN, GLYCOSYLATED Routine 2025 4:53 PM CDT TSH W/REFLEX Routine 2025 4:53 PM CDT TROPONIN, QUANT Routine 2025 4:53 PM CDT ECG 12-LEAD STAT 2025 4:42 PM CDT CBC W/DIFF AUTOMATED Routine 04/06/2025 3:47 AM [...] ECG 12-LEAD STAT 03/29/2025 11:02 AM CDT from Last 3 Months Results * ECG 12 lead (HOSPITAL PERFORMED ONLY) (05/17/2025 1:55 PM CDT) Only the most recent of9 resultswithin the time period is included. 05/17/2025 1:55 PM CDT Narrative [facility] - 05/18/2025 6:10 AM CDT [address] 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 GLUCOSE 176(H) 70 - 99 MG/DL 05/15/2025 11:13 AM CDT [facility] BUN 66(H) 7 - 18 MG/DL 05/15/2025 11:13 AM CDT [facility] CREATININE S/P/B 1.41(H) 0.55 - 1.02 MG/DL 05/15/2025 11:13 AM CDT [facility] SODIUM S/P/B 131(L) 136 - 145 MMOL/L 05/15/2025 11:13 AM CDT [facility] POTASSIUM S/P/B 3.6 3.5 - 5.1 MMOL/L 05/15/2025 11:13 AM CDT [facility] CHLORIDE S/P/B 94(L) 97 - 115 MMOL/L 05/15/2025 11:13 AM CDT [facility] CO2 26.5 21 - 32 MMOL/L 05/15/2025 11:13 AM CDT [facility] CALCIUM S/P/B 9.6 8.5 - 10.1 MG/DL 05/15/2025 11:13 AM CDT [facility] ANION GAP 10.5(H) 2 - 10 MMOL/L 05/15/2025 11:13 AM CDT [facility] BUN CREATININE RATIO 46.8(H) 6 - 26 05/15/2025 11:13 AM CDT [facility] GFR ESTIMATE 37(L) >90 ML/MIN/1.7 3 M2 05/15/2025 11:13 AM CDT [facility] Comment: NOTE: eGFR is not calculated for patients <18 years of age or gender unknown. This is an estimated GFR calculation using the new CKD EPI creatinine equation without race and so does not require a correction factor for race. This estimated GFR should not be used for calculating drug doses. 05/15/2025 10:1 7 AM CDT us Martin Melton MD LABORATORY Final Result [facility] [address] [place] [address], * (ABNORMAL) CBC W/DIFF AUTOMATED (05/15/2025 10:17 AM CDT) Only the most recent of17 resultswithin the time period is included. WBC 10.24 4.5 - 11.0 x10'3/uL 05/15/2025 10:31 AM CDT [facility] RBC 4.27 4.20 - 5.40 x10'6/uL 05/15/2025 10:31 AM CDT [facility] HGB 12.3 12.0 - 16.0 G/DL 05/15/2025 10:31 AM T [facility] HCT 37.4(L) 38.0 - 48.0 % 05/15/2025 10:31 AM CDT [facility] MCV 87.6 81.0 - 99.0 FL 05/15/2025 10:31 AM CDT [facility] MCH 28.8 27.0 - 31.0 PG 05/15/2025 10:31 AM CDT [facility] MCHC 32.9 32.0 - 36.0 G/DL 05/15/2025 10:31 AM CDT [facility] RDW 17.8(H) 11.5 - 14.5 % 05/15/2025 10:31 AM CDT [facility] PLT 281 130 - 400 x10'3/uL 05/15/2025 10:31 AM T [facility] MPV 10.6 9.3 - 12.2 FL 05/15/2025 10:31 AM CDT [facility] DIFFERENTIAL TYPE MANUAL DIFFERENTIAL 05/15/2025 11:09 AM CDT [facility] SEG NEUTROPHILS 87 % 11:09 AM T [facility] LYMPHOCYTES 4 % 05/15/2025 11:09 AM CDT [facility] MONOCYTES 8 % 05/15/2025 11:09 AM CDT [facility] EOSINOPHILS 1 % 05/15/2025 11:09 AM CDT [facility] ABS. NEUTROPHILS 8.91(H) 1.80 - 7.70 x10'3/uL 05/15/2025 11:09 AM CDT [facility] ABS. LYMPHOCYTES 0.41(L) 1.00 - 4.80 x10'3/uL 05/15/2025 11:09 AM CDT [facility] ABS. MONOCYTES 0.82 0.24 - 0.86 x10'3/uL 05/15/2025 11:09 AM CDT [facility] ABS. EOSINOPHILS 0.10 0.04 - 0.36 x10'3/uL 05/15/2025 11:09 AM CDT [facility] RBC MORPHOLOGY RBC MORPHOLOGY APPEARS NORMAL. SLIDE REVIEWED. 05/15/2025 11:09 AM CDT [facility] PLT EST. ADEQUATE 05/15/2025 11:09 AM CDT [facility] 05/15/2025 10:1 7 AM CDT us Martin Melton MD LABORATORY Final Result Performing Organization Address City/[facility]/ZIP Co de Phone Number [facility] [address] [place] [address], [place] [phone] * AMMONIA (05/15/2025 10:17 AM CDT) Only the most recent of2 resultswithin the time period is included. AMMONIA 25 11 - 32 UMOL/L 05/15/2025 10:48 AM CDT [facility] 05/15/2025 10:1 7 AM CDT us Martin Melton MD LABORATORY Final Result [facility] [address] [place] [address], * DIGOXIN (05/15/2025 10:17 AM CDT) Only the most recent of4 resultswithin the time period is included. DIGOXIN 1.7 0.8 - 2.0 NG/ML 05/15/2025 11:13 AM CDT [facility] Comment: THERAPEUTIC: 0.8-2.0 TOXIC: >2.4 DOSE UNKNOWN LAST DOSE 05/15/2025 2:25 PM CDT [facility] 05/15/2025 10:1 7 AM CDT Martin Melton MD LABORATORY Final Result [facility] [address] [place] [address], [place] [phone] * (ABNORMAL) MAGNESIUM (05/15/2025 7:04 AM CDT) Only the most recent of12 resultswithin the time period is included. [facility] MAGNESIUM 3.0(H) 1.8 - 2.4 MG/DL 05/15/2025 8:29 AM CDT [facility] 05/15/2025 7:04 AM CDT Zan Layne MD LABORATORY Final Result [facility] [address] [place] [id number], * CULTURE, BACTERIA, BLOOD (05/14/2025 5:00 AM CDT) Only the most recent of2 resultswithin the time period is included. Pathologist [facility] SPEC DESCRIPTION BLOOD 05/14/2025 4:03 AM CDT [facility] SPECIAL REQUESTS NO SPECIAL REQUEST 05/14/2025 4:03 AM CDT [facility] CULTURE RESULT NO GROWTH 5 DAYS 05/19/2025 6:18 AM CDT [facility] BLOOD SPECIMEN OBTAINED FOR BLOOD CULTURE / Unknown 05/14/2025 5:00 AM CDT 05/14/2025 5:10 AM CDT Susan Abdalla MD MICROBIOLOGY - GENERAL O RDERABLES Final Result [facility] [address] [place] [address], [place] [phone] * LACTIC ACID W REFLEX (SEPSIS) (05/14/2025 4:30 AM CDT) Only the most recent of3 resultswithin the time period is included. LACTIC ACID VENOUS 1.0 0.4 - 2.0 MMOL/L 05/14/2025 5:53 AM CDT [facility] 05/14/2025 4:30 AM CDT Susan Abdalla MD LABORATORY Final Re sult [facility] [address] [place] [address], [place] [phone] * (ABNORMAL) TROPONIN, QUANT (05/14/2025 3:45 AM CDT) Only the most recent of9 resultswithin the time period is included. TROPONIN I HIGH SENSITIVITY 110(H) <54 ng/L 05/14/2025 4:56 AM CDT [facility] Comment: HIGH DOSES OF BIOTIN, TROPONIN-SPECIFIC AUTOANTIBODIES, AND ANTIBODY THERAPY CONTAINING HAMA MAY INTERFERE WITH THIS TEST RESULT. CORRELATION TO CLINICAL HISTORY AND PRESENTATION RECOMMENDED. 05/14/2025 3:45 AM CDT us Zan Layne MD LABORATORY Final Result [facility] [address] [place] [address], [place] [phone] * (ABNORMAL) URINALYSIS (05/14/2025 3:27 AM CDT) Only the most recent of2 resultswithin the time period is included. SPECIMEN TYPE URINE CLEAN CATCH 05/14/2025 3:29 AM CDT [facility] COLOR (U) YELLOW 05/14/2025 3:52 AM CDT [facility] TRANSPARENCY TURBID 05/14/2025 3:52 AM CDT [facility] SPECIFIC GRAVITY (U) 1.015 1.001 - 1.030 05/14/2025 3:52 AM CDT [facility] U PH 5.5 5.0 - 9.0 05/14/2025 3:52 AM CDT [facility] LEUKOCYTES (U) 500(A) NEGATIVE 05/14/2025 3:52 AM CDT [facility] NITRITES NEGATIVE NEGATIVE 05/14/2025 3:52 AM CDT [facility] PROTEIN RANDOM (U) NEGATIVE <30 MG/DL 05/14/2025 3:52 AM CDT [facility] GLUCOSE (U) NORMAL NORMAL MG/DL 05/14/2025 3:52 AM CDT [facility] KETONES MG/DL (U) NEGATIVE NEGATIVE MG/DL 05/14/2025 3:52 AM CDT [facility] UROBILINOGEN NORMAL NORMAL MG/DL 05/14/2025 3:52 AM CDT [facility] BILIRUBIN (U) NEGATIVE NEGATIVE MG/DL 05/14/2025 3:52 AM CDT [facility] BLOOD (U) 1+(A) NEGATIVE 05/14/2025 3:52 AM CDT [facility] WBC/HPF >100(H) <6 /HPF 05/14/2025 3:52 AM CDT [facility] WBC CLUMPS PRESENT 05/14/2025 3:52 AM CDT [facility] RBC/HPF 12(H) <6 /HPF 05/14/2025 3:52 AM CDT [facility] BACTERIA (U) RARE(A) NONE /HPF 05/14/2025 3:52 AM CDT [facility] SQUAMOUS EPITHELIALS RARE /HPF 05/14/2025 3:52 AM CDT [facility] URINE SPECIMEN OBTAINED BY CLEAN CATCH PROCEDURE / Unknown 05/14/2025 3:27 AM CDT us Susan Abdalla MD URINE ORDERABLES Final R esult [facility] [address] [place] [address], * (ABNORMAL) URINE BACTERIA CULTURE (05/14/2025 3:27 AM CDT) Only the most recent of2 resultswithin the time period is included. SPEC DESCRIPTION URINE CLEAN CATCH 05/14/2025 4:03 AM CDT [facility] SPECIAL REQUESTS NO SPECIAL REQUEST 05/14/2025 4:03 AM CDT [facility] CULTURE RESULT 10,000-49,0 00 COL/ML ESCHERICHIA COLI (A) 05/16/2025 7:24 AM CDT [facility] URINE SPECIMEN OBTAINED BY CLEAN CATCH PROCEDURE / Unknown 05/14/2025 3:27 AM CDT 05/14/2025 4:19 AM CDT Narrative Organism Antibiotic Method Susceptibility Escherichia coli AMPICILLIN DEYANIRA (VITEK) 4: Sensitive Escherichia coli AMPICILLIN/SULBACTAM DEYANIRA (VITEK) <=2: Sensitive Escherichia coli CEFTRIAXONE DEYANIRA (VITEK) <=1: Sensitive Escherichia coli CEFTAZIDIME DEYANIRA (VITEK) <=1: Sensitive Escherichia coli CEFAZOLIN DEYANIRA (VITEK) <=4: Sensitive Escherichia coli ESBL DEYANIRA (VITEK) NEG: Sensitive Escherichia coli NITROFURANTOIN DEYANIRA (VITEK) <=16: Sensitive Escherichia coli GENTAMICIN DEYANIRA (VITEK) <=1: Sensitive Escherichia coli LEVOFLOXACIN DEYANIRA (VITEK) <=0.12: Sensitive Escherichia coli PIPERACILLIN/TAZOBACTAM DEYANIRA (VITEK) <=4: Sensitive Escherichia coli TRIMETH-SULFAMETH. DEYANIRA (VITEK) <=20: Sensitive us Susan Abdalla MD MICROBIOLOGY - GENERAL O RDERABLES Final Result [facility] [address] [place] [address], [place] [phone] * (ABNORMAL) COMPREHENSIVE METABOLIC PANEL (05/14/2025 12:00 AM CDT) Only the most recent of7 resultswithin the time period is included. GLUCOSE 115(H) 70 - 99 MG/DL 05/14/2025 4:13 AM CDT [facility] BUN 84(H) 7 - 18 MG/DL 05/14/2025 4:13 AM CDT [facility] CREATININE S/P/B 1.71(H) 0.55 - 1.02 MG/DL 05/14/2025 4:13 AM CDT [facility] SODIUM S/P/B 127(L) 136 - 145 MMOL/L 05/14/2025 4:13 AM CDT [facility] POTASSIUM S/P/B 4.0 3.5 - 5.1 MMOL/L 05/14/2025 4:13 AM T [facility] CHLORIDE S/P/B 93(L) 97 - 115 MMOL/L 05/14/2025 4:13 AM CDT [facility] CO2 21.4 21 - 32 MMOL/L 05/14/2025 4:13 AM T [facility] CALCIUM S/P/B 9.5 8.5 - 10.1 MG/DL 05/14/2025 4:13 AM T [facility] BILIRUBIN TOTAL S/P/B 1.5(H) 0.2 - 1.2 MG/DL 05/14/2025 4:13 AM T [facility] Comment: THIS ASSAY IS NOT RECOMMENDED FOR PATIENTS UNDERGOING TREATMENT WITH ELTROMBOPAG DUE TO THE POTENTIAL FOR FALSELY ELEVATED RESULTS. TOTAL PROTEIN S/P/B 7.6 6.4 - 8.2 G/DL 05/14/2025 4:13 AM T [facility] ALBUMIN S/P/B 3.4 3.4 - 5.0 G/DL 05/14/2025 4:13 AM T [facility] AST 31 15 - 37 U/L 05/14/2025 4:13 AM T [facility] ALT 17 14 - 55 U/L 05/14/2025 4:13 AM T [facility] ALKALINE PHOSPHATASE S/P/B 90 50 - 136 U/L 05/14/2025 4:13 AM T [facility] ANION GAP 12.6(H) 2 - 10 MMOL/L 05/14/2025 4:13 AM T [facility] BUN CREATININE RATIO 49.1(H) 6 - 26 05/14/2025 4:13 AM CDT [facility] A/G RATIO 0.8(L) 1.0 - 2.0 RATIO 05/14/2025 4:13 AM CDT [facility] GFR ESTIMATE 29(L) >90 ML/MIN/1.7 3 M2 05/14/2025 4:13 AM CDT [facility] Comment: NOTE: eGFR is not calculated for patients <18 years of age or gender unknown. This is an estimated GFR calculation using the new CKD EPI creatinine equation without race and so does not require a correction factor for race. This estimated GFR should not be used for calculating drug doses. 05/14/2025 Susan Abdalla MD LABORATORY Final Re sult [facility] [address] [place] [address], * CT HEAD WO CON (05/13/2025 11:35 PM CDT) Only the most recent of2 resultswithin the time period is included. Anatomical Region Laterality Modality Head Computed Tomogra phy 05/13/2025 11:4 7 PM CDT Impressions 05/13/2025 11:49 PM CDT IMPRESSION: ===== 1. No acute intracranial abnormalities. 2. Atrophy and small vessel ischemic disease. Referred By: DIOGENES TURPIN Interpreted By: Chirag Coronel MD, 05/13/2025 11:47 PM Narrative 05/13/2025 11:49 PM CDT [facility] [address] [place], [place] [address] EXAMINATION: CT of the head EXAM DATE/TIME: 05/13/2025 11:27 PM REASON FOR EXAM: encephalopathy Fall, altered mental status COMPARISON: 03/29/[address] TECHNIQUE: Axial CT images of the brain are obtained from skull base through vertex without the use of IV contrast agent. A dose lowering technique was used for this procedure, which may include, but is not limited to, dose reduction technique, automated exposure control, iterative reconstruction, ALARA (As Low As Reasonably Achievable), or Image Gently techniques. FINDINGS: No acute hemorrhage or large territory infarct. Ventricles are moderately enlarged with prominent bilateral sulci indicating moderate parenchymal volume loss. There are scattered areas of hypodensities in the periventricular deep white matter which are nonspecific but likely secondary to moderate small vessel ischemic disease. There are no extra-axial fluid collections. There is no mass, mass effect, or midline shift. There is no depressed skull fracture. Visualized paranasal sinuses are clear. Visualized orbital contents show bilateral lens extractions and are otherwise unremarkable. ===== Procedure Note Chirag Coronel MD - 05/13/[address] [address] EXAMINATION: CT of the head EXAM DATE/TIME: 05/13/2025 11:27 PM REASON FOR EXAM: encephalopathy Fall, altered mental status COMPARISON: 03/29/[address] TECHNIQUE: Axial CT images of the brain are obtained from skull basethrough vertex without the use of IV contrast agent. A dose loweringtechnique was used for this procedure, which may include, but is notlimited to, dose reduction technique, automated exposure control,iterative reconstruction, ALARA (As Low As Reasonably Achievable), orImage Gently techniques. FINDINGS: No acute hemorrhage or large territory infarct. Ventricles aremoderately enlarged with prominent bilateral sulci indicating moderateparenchymal volume loss. There are scattered areas of hypodensities inthe periventricular deep white matter which are nonspecific but likelysecondary to moderate small vessel ischemic disease. There are noextra-axial fluid collections. There is no mass, mass effect, or midlineshift. There is no depressed skull fracture. Visualized paranasalsinuses are clear. Visualized orbital contents show bilateral lensextractions and are otherwise unremarkable. ===== IMPRESSION: ===== 1. No acute intracranial abnormalities. 2. Atrophy and small vessel ischemic disease. Referred By: DIOGENES TURPIN Interpreted By: Chirag Coronel MD, 05/13/2025 11:47 PM Susan Abdalla MD CT Final Re sult * (ABNORMAL) POCT glucose (05/13/2025 10:56 PM CDT) Only the most recent of14 resultswithin the time period is included. [facility] GLUCOSE POC 119(H) 70 - 99 mg/dL 05/14/2025 3:40 AM CDT [facility] 05/13/2025 10:5 6 PM CDT Martin Melton MD POCT ORDERABLES - DEVICE Fin al Result [facility] [address] [place] [id number], * (ABNORMAL) HEPATIC FUNCTION PANEL (05/12/2025 6:01 AM CDT) Only the most recent of2 resultswithin the time period is included. Pathologist [facility] TOTAL PROTEIN S/P/B 7.5 6.4 - 8.2 G/DL 05/12/2025 9:21 AM CDT [facility] ALBUMIN S/P/B 3.3(L) 3.4 - 5.0 G/DL 05/12/2025 9:21 AM CDT [facility] BILIRUBIN TOTAL S/P/B 1.6(H) 0.2 - 1.2 MG/DL 05/12/2025 9:21 AM CDT [facility] Comment: THIS ASSAY IS NOT RECOMMENDED FOR PATIENTS UNDERGOING TREATMENT WITH ELTROMBOPAG DUE TO THE POTENTIAL FOR FALSELY ELEVATED RESULTS. BILIRUBIN DIRECT S/P/B 0.5(H) 0.0 - 0.20 MG/DL 05/12/2025 9:21 AM CDT [facility] BILIRUBIN INDIRECT S/P/B 1.1(H) 0.0 - 0.9 MG/DL 05/12/2025 9:21 AM CDT [facility] ALKALINE PHOSPHATASE S/P/B 82 50 - 136 U/L 05/12/2025 9:21 AM CDT [facility] AST 33 15 - 37 U/L 05/12/2025 9:21 AM CDT [facility] ALT 21 14 - 55 U/L 05/12/2025 9:21 AM CDT [facility] A/G RATIO 0.8(L) 1.0 - 2.0 RATIO 05/12/2025 9:21 AM CDT [facility] 05/12/2025 6:01 AM CDT Digna Villalpando NP LABORATORY Final Result [facility] [address] [place] [address], [place] [phone] * HEMOGLOBIN AND HEMATOCRIT (05/10/2025 10:29 PM CDT) HGB 13.2 12.0 - 16.0 G/DL 05/10/2025 10:43 PM CDT [facility] HCT 39.7 38.0 - 48.0 % 05/10/2025 10:43 PM CDT [facility] 05/10/2025 10:2 9 PM CDT us Barclay B Elayyan MD LABORATORY Final Resul t [facility] [address] [place] [address], [place] [phone] * TYPE & SCREEN (05/10/2025 10:29 PM CDT) Only the most recent of2 resultswithin the time period is included. ABO/RH B POSITIVE 05/10/2025 11:39 PM CDT [facility] ANTIBODY SCREEN NEGATIVE 05/10/2025 11:39 PM CDT [facility] SAMPLE EXPIRATION 05/13/2025,2 359 05/10/2025 11:39 PM CDT [facility] 05/10/2025 10:2 9 PM CDT Ning Mcgowan MD BLOOD BANK TEST ORDERABLES Final Result [facility] [address] [place] [address], [place] [phone] * XR CHEST PA+LAT (05/10/2025 2:40 PM CDT) Anatomical Region Laterality Modality Chest Radiographic Emilie ging 05/10/2025 2:48 PM CDT Impressions 05/10/2025 2:55 PM CDT IMPRESSION: 1. Cardiomegaly with mild pulmonary vascular congestion. 2. No appreciable acute focal pulmonary infiltrate or consolidation. Ordered By: NASRIN DANIEL Interpreted By: Danie Lainez, 05/10/2025 2:48 PM Narrative 05/10/2025 2:55 PM CDT [facility] [address] IMAGING STUDIES: XR CHEST PA+LAT DATE: 05/10/2025 2:33 PM HISTORY: CHF 85-year-old female. Telemetry patient. Congestive heart failure. History of left breast cancer with mastectomy. COMPARISON: No pertinent comparison exam at this institution. Report from chest portable 03/29/2025 at [facility]. DISCUSSION: Upright PA and lateral views. Multiple surgical clips in the left chest wall to axillary region. Right chest dual-lead ICD. Cardiomegaly. Mild pulmonary vascular congestion. Aortic atherosclerotic calcifications. No acute pulmonary infiltrate, pulmonary consolidation, pleural effusion, or pneumothorax. 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 Procedure Note Danie Lainez MD - 05/10/[address] [address] IMAGING STUDIES: XR CHEST PA+LATDATE: 05/10/2025 2:33 PM HISTORY: CHF 85-year-old female. Telemetry patient. Congestive heartfailure. History of left breast cancer with mastectomy. COMPARISON: No pertinent comparison exam at this institution. Report fromchest portable 03/29/2025 at [facility]. DISCUSSION: Upright PA and lateral views. Multiple surgical clips in the left chest wall to axillary region. Right chest dual-lead ICD. Cardiomegaly. Mild pulmonary vascularcongestion. Aortic atherosclerotic calcifications. No acute pulmonary infiltrate, pulmonary consolidation, pleural effusion,or pneumothorax. Spinal degenerative changes with calcified anterior longitudinal ligamentin the mid to lower thoracic spine. IMPRESSION: 1. Cardiomegaly with mild pulmonary vascular congestion. 2. No appreciable acute focal pulmonary infiltrate or consolidation. Ordered By: NASRIN DANIEL Interpreted By: Danie Lainez, 05/10/2025 2:48 PM [facility] Final Result * CT FACIAL BONES WO CON (05/10/2025 2:34 PM CDT) Anatomical Region Laterality Modality Facial Computed Tomogra phy 05/11/2025 1:06 PM CDT Impressions 05/11/2025 1:12 PM CDT IMPRESSION: 1. Motion degraded exam. Right-sided periorbital soft tissue edema noted, in keeping with clinical history. 2. No definite acute fractures identified in the visualized facial bones, though assessment is limited by motion. 3. Please see above for description of chronic, incidental, and nonemergent findings elsewhere. Ordered By: NASRIN DANIEL Interpreted By: Osvaldo Chavez MD, 05/11/2025 1:06 PM Narrative 05/11/2025 1:12 PM CDT [address] [address] DATE: 05/10/2025 2:25 PM EXAMINATION: CT facial bones without contrast CLINICAL HISTORY: Fall. Right infraorbital ecchymosis. COMPARISON: 03/29/2025 TECHNIQUE: Unenhanced maxillofacial CT examination was performed with axial and multiplanar images obtained. CT dose reduction techniques were utilized. FINDINGS: Image quality is degraded by motion. Right-sided periorbital soft tissue edema noted, in keeping with clinical history. The visualized nasal bones, orbital magaña, paranasal sinuses, zygomatic arches, pterygoid plates, and mandible are without definite evidence of acute fracture. No intraorbital hematoma or extraocular muscle entrapment. Bilateral lens replacements. Paranasal sinuses are clear. Patient is edentulous. Partially imaged portions of the intracranial compartment reveal small vessel disease, intracranial vascular calcifications, and volume loss. Mastoid air cells are clear. Patient is edentulous. 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 Suspect surgical changes of discectomy and interbody fusion at C4-C5. Procedure Note Osvaldo Chavez MD - 05/11/[address] [address] DATE: 05/10/2025 2:25 PM EXAMINATION: CT facial bones without contrast CLINICAL HISTORY: Fall. Right infraorbital ecchymosis. COMPARISON: 03/29/2025 TECHNIQUE: Unenhanced maxillofacial CT examination was performed withaxial and multiplanar images obtained. CT dose reduction techniques wereutilized. FINDINGS: Image quality is degraded by motion. Right-sided periorbital soft tissueedema noted, in keeping with clinical history. The visualized nasal bones,orbital magaña, paranasal sinuses, zygomatic arches, pterygoid plates, andmandible are without definite evidence of acute fracture. No intraorbitalhematoma or extraocular muscle entrapment. Bilateral lens replacements.Paranasal sinuses are clear. Patient is edentulous. Partially imagedportions of the intracranial compartment reveal small vessel disease,intracranial vascular calcifications, and volume loss. Mastoid air cellsare clear. Patient is edentulous. Congenital fusion/incompletesegmentation of the C2/C3 levels. Suspect surgical changes of discectomyand interbody fusion at C4-C5. IMPRESSION: 1. Motion degraded exam. Right-sided periorbital soft tissue edema noted,in keeping with clinical history. 2. No definite acute fractures identified in the visualized facial bones,though assessment is limited by motion. 3. Please see above for description of chronic, incidental, andnonemergent findings elsewhere. Ordered By: NASRIN DANIEL Interpreted By: Osvaldo Chavez MD, 05/11/2025 1:[address] Final Result * US SOFT TISS LOW BACK OR ABD WALL (05/10/2025 2:28 PM CDT) Anatomical Region Laterality Modality Abdomen, Body Ultrasound 05/10/2025 2:55 PM CDT Impressions 05/10/2025 3:04 PM CDT IMPRESSION: 6.6 x 4.2 x 1.6 cm hypoechoic structure in the right flank soft tissues most suggestive of hematoma. Correlate with clinical exam. Palpable abnormality should be managed on a clinical basis including decision as to whether to biopsy/aspirate, acquire additional imaging such as CT or MRI, or acquire surveillance follow-up imaging to assess for complete resolution. Ordered By: NASRIN DANIEL Interpreted By: Danie Lainez, 05/10/2025 2:55 PM Narrative 05/10/2025 3:04 PM CDT [facility] [address] [place], [place] [address] IMAGING STUDIES: US SOFT TISS LOW BACK OR ABD WALL DATE: 05/10/2025 2:12 PM HISTORY: Right hip/ rt flank hematoma 85-year-old female. Right hip/flank hematoma after a ground-level fall. COMPARISON: None. DISCUSSION: Targeted ultrasound performed of the right flank region in patient's area of bruising. Grayscale and color Doppler imaging. Static and cine images acquired. Hypoechoic heterogeneous region of approximately 6.6 x 4.2 x 1.6 cm with mildly increased through transmission and anterior margin approximately 1 cm deep to the skin surface. Given the history, the appearance is most suggestive of hematoma. Superficial to the hypoechoic structure is mild heterogeneity suggesting soft tissue contusion/edema. Mild dermal edema in that region. No hypervascularity on color Doppler imaging to suggest inflammatory mass/abscess. Procedure Note Danie Lainez MD - 05/10/2025 [facility] [address] [place], [place] [address] IMAGING STUDIES: US SOFT TISS LOW BACK OR ABD WALLDATE: 05/10/2025 2:12PM HISTORY: Right hip/ rt flank hematoma 85-year-old female. Righthip/flank hematoma after a ground-level fall. COMPARISON: None. DISCUSSION: Targeted ultrasound performed of the right flank region in patient's areaof bruising. Grayscale and color Doppler imaging. Static and cine imagesacquired. Hypoechoic heterogeneous region of approximately 6.6 x 4.2 x 1.6 cm withmildly increased through transmission and anterior margin approximately 1cm deep to the skin surface. Given the history, the appearance is mostsuggestive of hematoma. Superficial to the hypoechoic structure is mildheterogeneity suggesting soft tissue contusion/edema. Mild dermal edema inthat region. No hypervascularity on color Doppler imaging to suggest inflammatorymass/abscess. IMPRESSION: 6.6 x 4.2 x 1.6 cm hypoechoic structure in the right flank soft tissuesmost suggestive of hematoma. Correlate with clinical exam. Palpableabnormality should be managed on a clinical basis including decision as towhether to biopsy/aspirate, acquire additional imaging such as CT or MRI,or acquire surveillance follow-up imaging to assess for completeresolution. Ordered By: NASRIN DANIEL Interpreted By: Danie Lainez, 05/10/2025 2:55 PM us [facility] Final Result * PROCALCITONIN (PCT) (05/10/2025 2:59 AM CDT) PROCALCITONIN 0.16 0.00 - 0.49 NG/ML 05/10/2025 9:34 AM CDT [facility] 05/10/2025 2:59 AM CDT us [facility] Final Result [facility] [address] [place] [address], [place] [phone] * LIPID PANEL (05/08/2025 3:25 AM CDT) CHOLESTEROL 109 <200 MG/DL 05/08/2025 4:27 AM CDT [facility] TRIGLYCERIDES 78 <150 MG/DL 05/08/2025 4:27 AM CDT [facility] HDL 49 >40.0 MG/DL 05/08/2025 4:27 AM CDT [facility] LDL (CALCULATED) 44 <100 MG/DL 05/08/20 4:27 AM CDT [facility] Comment:CALCULATED USING THE FRIEDEWALD EQUATION NON HDL CHOLESTEROL 60 <130 MG/DL 05/08 4:27 AM CDT [facility] CHOL/HDL RATIO 2.2 0.0 - 4.5 05/08/2025 4:27 AM CDT [facility] VLDL CALCULATION 16 5 - 55 MG/DL 05/08/2025 4:27 AM CDT [facility] LIPID INTERPRETATION 05/08/2025 4:27 AM CDT [facility] Comment: [facility] CONCENSUS REPORT RECOMMENDATIONS: ADULT CHILD LOW RISK: CHOLESTEROL <200 <170 TRIGLYCERIDE <150 --- HDL >=60 --- LDL <100 <110 BORDERLINE: CHOLESTEROL 200-239 170-199 TRIGLYCERIDE 150-199 --- HDL 40-59 --- LDL 100-159 110-129 HIGH RISK: CHOLESTEROL >=240 >=200 TRIGLYCERIDE >=200 --- HDL <40 --- LDL >=160 >=130 05/08/2025 3:25 AM CDT Sylvie Worthington APRN LABORATORY Final Result Performing Organization Address City/[facility]/ZIP Co de Phone Number [facility] [address] [place] [address], [place] [phone] * CK (CPK) (05/08/2025 3:25 AM CDT) CPK 123 21 - 215 U/L 05/08/2025 4:29 AM CDT [facility] 05/08/2025 3:25 AM CDT Sylvie Worthington APRN LABORATORY Final Result Performing Organization Address City/[facility]/ZIP Co de Phone Number [facility] [address] [place] [address], * (ABNORMAL) PRO-BRAIN NATRIURETIC PEPTIDE (05/08/2025 3:24 AM CDT) Only the most recent of3 resultswithin the time period is included. Pathologist [facility] PRO-B TYPE NATRIURETIC PEPTIDE 7,850(H) <450 PG/ML 05/08/2025 1:35 PM CDT [facility] Comment: CUT POINTS ESTABLISHED BY INTERNATIONAL [employer] ON NT PROBNP (ICON) STUDY (2006). AGE INDEPENDENT: <300 PG/ML HAS A 99% NEGATIVE PREDICTIVE VALUE FOR EXCLUDING ACUTE CHF <50 YEARS: >450 PG/ML IS CONSISTENT WITH ACUTE CHF 50-75 YEARS: >900 PG/ML IS CONSISTENT WITH ACUTE CHF >75 YEARS: >1800 PG/ML IS CONSISTENT WITH ACUTE CHF IN PATIENTS WITH RENAL INSUFFICIENCY (GFR <60), >1200 PG/ML YIELDS A DIAGNOSTIC SENSITIVITY AND SPECIFICITY OF 89% AND 72% FOR ACUTE CHF. 05/08/2025 3:24 AM CDT Deacon Aponte MD LABORATORY Final Res ult [facility] [address] [place] [address], [place] [phone] * (ABNORMAL) URINALYSIS, AUTO, COMPLETE (2025 7:15 PM CDT) Pathologist [facility] SPECIMEN TYPE URINE CLEAN CATCH 2025 7:19 PM CDT [facility] COLOR (U) LIGHT YELLOW 2025 7:38 PM CDT [facility] TRANSPARENCY CLEAR 2025 7:38 PM CDT [facility] SPECIFIC GRAVITY (U) 1.011 1.001 - 1.030 2025 7:38 PM CDT [facility] U PH 5.5 5.0 - 9.0 2025 7:38 PM CDT [facility] LEUKOCYTES (U) 75(A) NEGATIVE 2025 7:38 PM CDT [facility] NITRITES NEGATIVE NEGATIVE 2025 7:38 PM CDT [facility] PROTEIN RANDOM (U) NEGATIVE <30 MG/DL 2025 7:38 PM CDT [facility] GLUCOSE (U) 500(A) NORMAL MG/DL 2025 7:38 PM CDT [facility] KETONES MG/DL (U) NEGATIVE NEGATIVE MG/DL 2025 7:38 PM CDT [facility] UROBILINOGEN NORMAL NORMAL MG/DL 2025 7:38 PM CDT [facility] BILIRUBIN (U) NEGATIVE NEGATIVE MG/DL 2025 7:38 PM CDT [facility] BLOOD (U) NEGATIVE NEGATIVE 2025 7:38 PM CDT [facility] WBC/HPF 8(H) <6 /HPF 2025 7:38 PM CDT [facility] RBC/HPF 3 <6 /HPF 2025 7:38 PM CDT [facility] BACTERIA (U) RARE(A) NONE /HPF 2025 7:38 PM CDT [facility] SQUAMOUS EPITHELIALS RARE /HPF 2025 7:38 PM CDT [facility] URINE SPECIMEN OBTAINED BY CLEAN CATCH PROCEDURE / Unknown 2025 7:15 PM CDT us Marciano Brand MD URINE ORDERABLES Final Result [facility] [address] [place] [address], [place] [phone] * TSH W/REFLEX (2025 4:53 PM CDT) [facility] TSH 1.010 0.358 - 3.74 uIU/ML 2025 6:01 PM CDT [facility] Comment: HIGH DOSES OF BIOTIN MAY INTERFERE WITH THIS TEST RESULT. CORRELATION TO CLINICAL HISTORY AND PRESENTATION RECOMMENDED. FREE T4 NOT INDICATED 2025 4:53 PM CDT Sylvie Worthington APRN LABORATORY Final Result [facility] [address] [place] [address], * (ABNORMAL) HEMOGLOBIN, GLYCOSYLATED (2025 4:53 PM CDT) [facility] HGB A1C 6.9(H) <5.7 % 2025 6:43 PM CDT [facility] Comment: ADA GUIDELINES 2010 5.7 TO 6.4% INCREASED RISK OF DIABETES > OR = 6.5% CONSISTENT WITH DIABETES ESTIMATED AVG GLUCOSE 151 mg/dL 2025 6:43 PM CDT [facility] 2025 4:53 PM CDT Sylvie Worthington APRN LABORATORY Final Result [facility] [address] [place] [address], [place] [phone] * CLOSTRIDIUM DIFFICILE (04/06/2025 1:17 AM CDT) [facility] GDH ANTIGEN NEGATIVE NEGATIVE 04/06/2025 2:15 AM CDT [facility] C DIFFICILE TOXIN A&B (STOOL) NEGATIVE NEGATIVE 04/06/2025 2:15 AM CDT [facility] COMMENT GDH NEGATIVE/TOXI N A & B NEGATIVE: NEGATIVE FOR TOXIGENIC C. DIFFICILE. GDH NEGATIVE/TOXI N A & B NEGATIVE: NEGATIVE FOR TOXIGENIC C. 04/06/2025 2:15 AM CDT [facility] STOOL SPECIMEN / Unknown 04/06/2025 1:17 AM CDT Richi Richardson MD BODY FLUIDS AND STOOLS OR DERABLES Final Result Performing Organization Address City/[facility]/ZIP Co de Phone Number [facility] [address] [place] [address], [phone] * LACTIC ACID - SINGLE (04/04/2025 9:01 AM CDT) Only the most recent of2 resultswithin the time period is included. LACTIC ACID VENOUS 1.7 0.4 - 2.0 MMOL/L 04/04/2025 9:35 AM CDT [facility] 04/04/2025 9:01 AM CDT us Barney Sherwood MD LABORATORY Final Result Performing Organization Address [facility] Co de Phone Number [facility] [address] [place] [address], [id number] * US RETROPERITONEAL COMP (04/03/2025 9:47 AM [...] 7:04 AM Narrative 04/04/2025 7:06 AM CDT [facility] [address] [place], [place] [address] EXAMINATION: ULTRASOUND KIDNEYS AND URINARY BLADDER HISTORY: [...] Procedure Note Ela Muñoz MD - 04/04/2025 [facility] [address] [place], [place] [address] EXAMINATION: ULTRASOUND KIDNEYS AND URINARY BLADDER HISTORY: [...] By: Ela Muñoz MD, 04/04/2025 7:04 AM Ousmane Lamb MD ULTRASOUND Final Result * (ABNORMAL) PHOSPHORUS, INORGANIC PHOSPHATE (04/03/2025 4:06 AM CDT) Only the most recent of4 resultswithin the time period is included. PHOSPHORUS 5.4(H) 2.5 - 4.9 MG/DL 04/03/2025 5:01 AM CDT [facility] 04/03/2025 4:06 AM CDT Alex Bhakta MD LABORATORY Fi nal Result [facility] [address] [place] [address], [id number] * USV VAST TEAM MIDLINE INSERT >5YR [...] Please review associated procedure and/or operative report. Alex Bhakta MD [facility] Fi nal Result * (ABNORMAL) PROTHROMBIN TIME, VENOUS (03/31/2025 2:30 PM CDT) Only the most recent of3 resultswithin the time period is included. PROTIME 39.6(H) 9.4 - 12.5 SEC 03/31/2025 3:11 PM CDT [facility] INR 3.4(H) 0.8 - 1.1 03/31/2025 3:11 PM CDT [facility] 03/31/2025 2:3 0 PM CDT us Alex Bhakta MD LABORATORY Fi nal Result Performing Organization Address [facility] de Phone Number [facility] [address] [place] [address], [place] [phone] * (ABNORMAL) THYROID STIM HORMONE, TSH (03/31/2025 2:30 PM CDT) TSH 4.080(H) 0.358 - 3.740 uIU/ML 03/31/2025 3:23 PM CDT [facility] Comment: ASSAY PERFORMED BY CHEMILUMINESCENCE METHODOLOGY USING [employer] [facility]. PATIENT RESULTS DETERMINED BY ASSAYS USING DIFFERENT MANUFACTURERS FOR METHODS MAY NOT BE COMPARABLE. 03/31/2025 2:30 PM CDT us Alex Bhakta MD LABORATORY Fi nal Result Performing Organization Address [facility] de Phone Number [facility] [address] [place] [address], [place] [phone] [id number] * (ABNORMAL) CALCIUM, IONIZED (03/31/2025 2:30 PM CDT) CALCIUM IONIZED 1.12(L) 1.15 - 1.33 MMOL/L 03/31/2025 2:49 PM CDT [facility] 03/31/2025 2:30 PM CDT us Alex Bhakta MD LABORATORY Fi nal Result Performing Organization Address [facility]/State/ZIP Co de Phone Number [facility] [address] [place] [address], [id number] * STAPH SCREENING BY PCR (03/31/2025 2:25 PM CDT) SPECIMEN SOURCE RESPIRATORY, NOSE 03/31/2025 2:21 PM CDT [facility] MRSA BY PCR NASAL METHICILLIN RESISTANT STAPH AUREUS NOT DETECTED METHICILLIN RESISTANT STAPH AUREUS NOT DETECTED 04/01/2025 11:08 AM CDT [facility] NASAL STRUCTURE / Unknown 03/31/2025 2:25 PM CDT Alex Bhakta MD MICROBIOLOGY - GEN ERAL ORDERABLES Final Result Performing Organization Address [facility] Co de Phone Number [facility] [address] [place] [address], [id number] * USE ECHOCARDIOGRAM W CON (03/30/2025 10:35 AM CDT) Anatomical Region Laterality Modality NA Echocardiogram 03/30/2025 9:45 AM CDT Narrative 03/30/2025 7:03 PM CDT Echocardiography Report Pat.Name: JENNIFER COATES Pat.ID: [id number] .Date: 03/30/2025 Refer.: [id number] TOLU Allen EWDPROV EWDPROV Exam Time: 9:45:00 [...] Mass 2D Value 180 g LV Mass [id number] Value 102 g/m2 RA Volume Atrial Bermudez [...] I BP 28.8 ml/m2 LV Biplane Major [place] Minal 8.14 % Major [place] Minal 13.9 % LV Left Ventricle Mass by M-mode LV Mass 180 g Right Ventricle Right Ventricle 3.5 cm Right Ventricle 2.8 cm Major [place] 8 cm MMODE TA Tricuspid Annul 0.458 cm <Electronic Signature> 03/30/2025 07:03 PM Toro Freire M.D. Procedure Note Toro Freire MD - 03/30/2025 Echocardiography Report Pat.Name: JENNIFER COATES Pat.ID: [id number] .Date: 03/30/2025 Guerline.MD: [id number] TOLU Allen EWDPROV EWDPROV Exam Time: 9:45:00 [...] Mass 2D Value 180 g LV Mass [id number] Value 102 g/m2 RA Volume Atrial Bermudez [...] I BP 28.8 ml/m2 LV Biplane Major [place] Minal 8.14 % Major [place] Minal 13.9 % LV Left Ventricle Mass by M-mode LV Mass 180 g Right Ventricle Right Ventricle 3.5 cm Right Ventricle 2.8 cm Major [place] 8 cm MMODE TA Tricuspid Annul 0.458 cm <Electronic Signature> 03/30/2025 07:03 PM Toro Freire M.D. Diego Rojas MD ECHO Final Result * PARTIAL THROMBOPLASTIN TIME,PTT (03/29/2025 7:11 PM CDT) Only the most recent of2 resultswithin the time period is included. PTT 34.9 25.1 - 36.5 SEC 03/29/2025 8:16 PM CDT [facility] 03/29/2025 7:11 PM CDT Davie You MD LABORATORY Final Result [facility] [address] [place] [address], [place] [phone] * INFLUENZA A & B (03/29/2025 1:28 PM CDT) SPECIMEN TYPE (INFLUENZA) NASOPHARYNGEAL SWAB 03/29/2025 1:28 PM CDT [facility] INFLUENZA A NEGATIVE NEGATIVE 03/29/2025 1:55 PM CDT [facility] INFLUENZA B NEGATIVE NEGATIVE 03/29/2025 1:55 PM CDT [facility] Comment: A NEGATIVE RESULT DOES NOT EXCLUDE INFLUENZA VIRUS INFECTION. IF INFLUENZA IS CIRCULATING IN YOUR COMMUNITY, A DIAGNOSIS OF INFLUENZA SHOULD BE CONSIDERED BASED ON A PATIENT'S CLINICAL PRESENTATION AND EMPIRIC ANTIVIRAL TREATMENT SHOULD BE CONSIDERED IF INDICATED. NASAL NASOPHARYNGEAL SWAB / Unknown 03/29/2025 1:28 PM CDT Jeff Washington DO MICROBIOLOGY - GENERAL ORDER EJ Final Result [facility] [address] [place] [address], [place] [phone] * RESP SYNCYTIAL VIRUS (03/29/2025 1:28 PM CDT) SPECIMEN TYPE NASOPHARYNGEAL SWAB 03/29/2025 1:28 PM CDT [facility] RSV NEGATIVE NEGATIVE 03/29/2025 1:55 PM CDT [facility] NASOPHARYNGEAL SWAB / Unknown 03/29/2025 1:28 PM CDT us Jeff Washington DO MICROBIOLOGY - GENERAL ORDER EJ Final Result [facility] [address] [place] [address], * XR CHEST PORTABLE (03/29/2025 12:24 PM CDT) Anatomical Region Laterality Modality Chest Radiographic Emilie ging 03/29/2025 12:3 5 PM CDT Impressions 03/29/2025 12:37 PM CDT IMPRESSION: Cardiomegaly with new congestive changes as described. No focal infiltrates. Ordered By: JEFF WASHINGTON Interpreted By: Rcihard Isabel MD, 03/29/2025 12:35 PM Narrative 03/29/2025 12:[address] [place] [address] Examination: Portable chest. Exam time: 1215 hours. Clinical history: Dyspnea. Comparison: 01/06/2024 ([facility]). Technique: AP upright view. Findings: Allowing for [...] Procedure Note Richard Isabel MD - 03/29/[address] [place] [address] Examination: Portable chest. Exam time: 1215 hours. Clinical history: Dyspnea. Comparison: 01/06/2024 ([facility]). Technique: AP upright view. Findings: Allowing for [...] By: Richard Isabel MD, 03/29/2025 12:35 PM us Jeff Washington DO GENERAL IMAGING Final Result * (ABNORMAL) HEPARIN, ANTI XA, UFH (03/29/2025 12:08 PM CDT) HEPARIN ANTI XA UFH >2.00(HH) 0.30 - 0.70 IU/ML 03/29/2025 3:54 PM CDT [facility] Comment: UFH Therapeutic Anti Xa Ranges: Medical Therapeutic Range: 0.30 - 0.70 IU/mL Cardiac Therapeutic Range: 0.30 - 0.50 IU/mL Neuro Therapeutic Range: 0.20 - 0.40 IU/mL CALLED TO AVRIL CAMPBELL ER [id number] AR READ BACK AND VERIFIED 03/29/2025 12:0 8 PM CDT Jeff Washington DO LABORATORY Final Result [facility] [place] [address], * (ABNORMAL) D-DIMER, QUANTITATIVE (03/29/2025 12:08 PM CDT) D-DIMER 548(H) 0 - 500 ng{FEU}/mL 03/29/2025 12:40 PM CDT [facility] Comment: D-Dimer values less than or [...] us Jeff Washington DO LABORATORY Final Result [facility] [address] [place] [id number], from Last 3 Months Insurance [facility] MEDICARE MEDICAID [facility] MEDICARE MEDICAID Advance Directives Documents on File Type Date Recorded Patient Systems Tester Expl anation Power of Optical Lathe Operator 10/21/2024 2:16 PM 2012 - ALEXANDRA COATES, H[facility]-SON; REJI COATES, 1ST ALTERNATE HCA-OTHER; ANGEL COATES, 2ND ALTERNATE HCA-OTHER; DANNY COATES, 3RD ALTERNATE HCA-OTHER; Advance Directives and Living Will 10/21/2024 2:03 PM Advance Directives and Living Will 10/21/2024 2:03 PM Advance Directives and Living Will 06/21/2017 9:24 AM 01/17/2013 - Living will * DNR (Latest Code Status on File) Date Activated Date Inactivated Comments 2025 3:41 PM 05/15/2025 6:13 PM * DNR Date Activated Date Inactivated Comments 03/31/2025 3:18 PM 04/06/2025 4:02 PM * Full Code Date Activated Date Inactivated Comments 03/31/2025 1:24 PM 03/31/2025 3:18 PM * DNR Date Activated Date Inactivated Comments 03/29/2025 6:34 PM 03/31/2025 1:24 PM * DNR Date Activated Date Inactivated Comments 07/23/2023 5:58 PM 07/24/2023 3:01 PM Healthcare Agents on File Name Relationship Healthcare Agent Relationship Communication Alexandra Coates ([facility]) Son Health Care Agent [phone] (Mobile ) Angel Coates Other Second Alternate Health Care Agent Care Teams Supervisor [employer] Relationship Specialty Start Date End Date Gino Meyer MD [address] [place] [phone] PCP - General INTERNAL MEDICINE 06/11/17 Christel Lu MD [address] [place] [address] EP Cs Associate CLINICAL CARDIAC ELECTROPHYSIOLOGY 06/12/23 Toro Freire MD [address] [place] [address] [place] Cs Associate CARDIOVASCULAR DISEASE 09/28/24
--- OUTSIDE RECORDS SUMMARY | 2025-05-21 20:47 | XMS_ITS | Encounter Summary ---
Author Organization [facility] Address [address] [place] [address] Care Team Providers Care Manager Technical Training Name Role Phone Santos Fuentes MD Unavailable [phone] Gino Meyer MD Primary Care Provider [phone] Shana Adams NP Unavailable Unavailable Christel Lu MD Unavailable Stella Llanos MD Unavailable Encounter Details Date Type Department Care Team (Late st Contact Info) Description 12/06/2022 Hospital Follow-up Call [facility] Cardiovascular Care Unit [address] [place] [address] Stephie Arreola, RN Social History [...] Sex Assigned at Female 09/01/2024 10:13 AM WRISTER Legal Sex Female 10:21 PM CDT Gender [...] 06/14/2025 1:00 AM CDT [facility] [address] [place] [phone] Christel Lu MD [address] [place] [address] 09/22/2025 1:00 PM WRISTER Office Visit [facility] [place] [address] Stella Llanos MD [address] [place], [place] [address] 11/02/2025 1:30 PM CDT Office Visit [facility] ld [address] [place] [address] Maciel Wang PA-C [address] [place] [address] 11/02/2025 1:30 PM CDT Allied Health[facility] [address] [place] [address] Christel Lu MD [address] [place] [address] documented as of this encounter [...] as of this encounter Care Teams Manager Technical Training Relationship Specialty Start Date End Date Gino Meyer MD [address] [place] [address] PCP - General INTERNAL MEDICINE 06/11/17 Santos Fuentes MD [address] [place] [address] [place] Patient Educator CARDIOVASCULAR DISEASE 02/06/17 08/31/24 Shana Adams NP [address] [place] [address] Referring Physician Nurse Practitioner Family 02/27/23 Christel Lu MD [address] [place] [address] EP Patient Educator CLINICAL CARDIAC ELECTROPHYSIOLOGY 06/12/23 Stella Llanos MD [address] [place] [address] [place] Patient Educator CARDIOVASCULAR DISEASE 09/28/24 documented as of this encounter
--- OUTSIDE RECORDS SUMMARY | 2025-05-21 20:47 | XMS_ITS | Encounter Summary ---
Author Organization [facility] Address [address] [place] [address] Care Team Providers Care General Ledger Accountant Name Role Phone Santos Fuentes MD Unavailable [phone] Gino Meyer MD Primary Care Provider [phone] Shana Adams NP Unavailable Unavailable Christel Lu MD Unavailable Stella Llanos MD Unavailable Encounter Details Date Type Department Care Team (Late st Contact Info) Description 02/15/2021 Abstract [facility] [address] [place] [phone] Santos Fuentes MD [address] [place] [phone] Social History Tobacco Use Types Packs/Day Years Used Date Smoking Tobacco: Never Smokeless Tobacco: Never Alcohol Use Standard Drinks/Week Comments No 0 (1 standard drink = 0.6 oz pur e alcohol) Comments Unknown Sex and Gender Information Value Date Recorded Sex Assigned at Female 09/01/2024 10:13 AM COMP[employer]ER [employer] Legal Sex Female 10:21 PM CDT Gender [...] AM CDT Allied Health/Nurse Visit [facility] ld [address] [place] [phone] Christel Lu MD [address] [place] [address] 09/22/2025 1:00 PM [employer] Office Visit [facility] [place] [address] Stella Llanos MD [address] [place] [address] 11/02/2025 1:30 PM CDT Office Visit [facility] ld [address] [place] [address] Maciel Wang, PA-C [address] [place] [address] 11/02/2025 1:30 PM CDT Allied Health/Nurse Visit [facility] ld [address] [place] [address] Christel Lu MD [address] [place] [address] documented as of this encounter Procedures Procedure [...] documented as of this encounter Care Teams General Ledger Accountant Relationship Specialty Start Date End Date Gino Meyer MD [address] [place] [phone] PCP - General INTERNAL MEDICINE 06/11/17 Santos Fuentes MD [address] [place] [address] [place] [address] Crier CARDIOVASCULAR DISEASE 02/06/17 08/31/24 Shana Adams NP [address] [place] [address] Referring Physician Nurse Practitioner Family 02/27/23 Christel Lu MD [address] [place] [address] [address] Crier CLINICAL CARDIAC ELECTROPHYSIOLOGY 06/12/23 Stella Llanos MD [address] [place] [address] [place] [address] Crier CARDIOVASCULAR DISEASE 09/28/24 documented as of this encounter
--- OUTSIDE RECORDS SUMMARY | 2025-05-21 20:48 | XMS_ITS | Encounter Summary ---
Author Organization [facility] Address [address] [place] [address] Care Team Providers Care Utilities Estimator And Drafter Name Role Phone Gino Meyer MD Primary Care Provider [phone] Christel Lu MD Unavailable Stella Llanos MD Unavailable Encounter Details Date Type Department Care Team (Late st Contact Info) Description 05/18/2025 Orders Only [facility] [address] [place], [place] [id number] Stella Llanos MD [address] [place] [address] Social History Tobacco Use Types Packs/Day Years Used Date Smoking Tobacco: Never Smokeless Tobacco: Never Alcohol Use Standard Drinks/Week Comments No 0 (1 standard drink = 0.6 oz pur e alcohol) [facility] Utilities Answer Date Recorded In the past 12 months has th e electric, gas, oil, or water company [...] place to sleep or slept in a jail (including now)? Yes 11/29/2022 Housing Stability Vital Sign Answer Ramakrishna e Recorded In the last 12 months, was t here a time when you were not able to pay the mortgage or rent on time? No 2025 In the past 12 months, how m any times have you moved where you were living? 0 2025 At any time in the past 12 m [facility], were you homeless or living in a jail (including now)? No 2025 Comments No Sex and Gender Information Value Date Recorded Sex Assigned at Female 09/01/2024 10:13 AM WOOL HAT HYDRAULICKER Legal Sex Female 10:21 PM CDT Gender Identity Female 03/29/2025 8:02 PM CDT Sexual Orientation Not on file Occupation Industry Job Start Date Job End Date retired Not on file Not on file Not on file documented as of this encounter Functional Status * Are you deaf or do you have serious difficulty hearing Answer Date of Assessment Author Status No 2025 3:00 PM CDT Luci Davies RN Active * Are you blind or do you have serious difficulty seeing, even when wearing glasses? Answer Date of Assessment Author Status No 2025 3:00 PM MEGANT Luci Davies RN Active * Do you have serious difficulty walking or climbing stairs? Answer Date of Assessment Author Status No 2025 3:00 PM MEGANT Luci Davies RN Active * Do you have difficulty dressing or bathing? Answer Date of Assessment Author Status No 2025 3:00 PM CDT Luci Davies RN Active * Because of a physical, mental, or emotional condition, do you have difficulty doing errands alone such as visiting a doctor's office or shopping? Answer Date of Assessment Author Status No 2025 3:00 PM MEGANT Luci Davies RN Active documented as of this encounter Mental Status * Because of a physical, mental, or emotional condition, do you have serious difficulty concentrating, remembering, or making decisions? Answer Entry Date Author Status No 2025 3:00 PM CDT Luci Davies RN Active documented in this encounter Plan of Treatment Upcoming Encounters Date Type Department Care Team (Late st Contact Info) Description 06/14/2025 1:00 AM CDT Allied Health/Nurse Visit [facility] [address] [place] [phone] Christel Lu MD [address] [place] [phone] 09/22/2025 1:00 PM WOOL HAT HYDRAULICKER Office Visit [facility] [place] [address] Stella Llanos MD [address] [place], [place] [id number] 11/02/2025 1:30 PM CDT Office Visit [facility] [address] [place] [address] Maciel Wang, PA-C [address] [place] [address] 11/02/2025 1:30 PM CDT Allied Health/Nurse Visit [facility] [address] [place] [address] Christel Lu MD [address] [place] [address] documented as of this encounter Goals Goal Patient Goal Type Associated Problems Recent Progress Patient-Stated? Author Safety Patient/family will have appropriate support at home upon discharge Lifestyle No Merissa Santiago RN Safety Patient/family will have appropriate support at home upon discharge Lifestyle No Elina Lambert, MARY LOU Patient will return to prior living situation and remain independent in ADLs upon discharge from hospital Lifestyle No Shelly Maravilla RN documented as of this encounter Visit Diagnoses Not on filedocumented in this encounter Care Teams Utilities Estimator And Drafter Relationship Specialty Start Date End Date Gino Meyer MD [address] [place] [address] PCP - General INTERNAL MEDICINE 06/11/17 Christel Lu MD [address] [place] [address] EP Art Preparator CLINICAL CARDIAC ELECTROPHYSIOLOGY 06/12/23 Stella Llanos MD [address] [place] [address] [place] Art Preparator CARDIOVASCULAR DISEASE 09/28/24 documented as of this encounter
--- OUTSIDE RECORDS SUMMARY | 2025-05-21 20:48 | XMS_ITS | Encounter Summary ---
Author Organization [facility] Address [address] [place] [address] Care Team Providers Care Casino Attendant Name Role Phone Toy Warren MD Primary Care Provider [phone] Santos Fuentes MD Unavailable [phone] Gino Meyer MD Primary Care Provider [phone] Shana Adams NP Unavailable Unavailable Christel Lu MD Unavailable Stella Llanos MD Unavailable Encounter Details Date Type Department Care Team (Late st Contact Info) Description 03/06/2017 Abstract [facility] [address] [place] [address] Santos Fuentes MD [address] [place] [address] Social History Tobacco Use Types Packs/Day Years Used Date Smoking Tobacco: Never Alcohol Use Standard Drinks/Week Comments No 0 (1 standard drink = 0.6 oz pur e alcohol) Comments Unknown Sex and Gender Information Value Date Recorded Sex Assigned at Female 09/01/2024 10:13 AM FURNITURE REPAIR TECHNICIAN Legal Sex Female 10:21 PM CDT [...] 06/14/2025 1:00 AM CDT Allied Health[facility] [address] [place] [address] [phone] Christel Lu MD [address] [place] [address] 09/22/2025 1:00 PM FURNITURE REPAIR TECHNICIAN Office Visit [facility] [place] [address] Stella Llanos MD [address] [place] [address] 11/02/2025 1:30 PM CDT [facility] [address] [place] [address] Maciel Wang PA-C [address] [place] [address] 11/02/2025 1:30 PM CDT Allied Health/Nurse Visit [facility] [address] [place] [address] Christel Lu MD [address] [place] [address] documented as of this encounter Visit Diagnoses Not on filedocumented in this encounter Additional Health Concerns Infection Onset Date Last Indicated Resolved Time COVID-19 Rule Out 04/24/2022 04/24/2022 04/24/2022 4:06 AM CDT Respiratory Rule Out 03/29/2025 03/29/2025 025 1:55 PM CDT documented as of this encounter Care Teams Casino Attendant Relationship Specialty Start Date End Date Toy Warren MD [address] [place], [place] [id number] PCP - General INTERNAL MEDICINE 02/06/17 06/10/17 Gino Meyer MD [address] [place] [phone] PCP - General INTERNAL MEDICINE 06/11/17 Santos Fuentes MD [address] [place] [address] [employer] CARDIOVASCULAR DISEASE 02/06/17 08/31/24 Shana Adams NP [address] [place] [address] Referring Physician Nurse Practitioner Family 02/27/23 Christel Lu MD [address] [place] [address] EP Pivot Maker CLINICAL CARDIAC ELECTROPHYSIOLOGY 06/12/23 Stella Llanos MD [address] [place] [address] [employer] CARDIOVASCULAR DISEASE 09/28/24 documented as of this encounter
--- NOTE | 2025-05-21 21:13 | PC.NURSE ---
PATIENT TRANSPORTED TO CT VIA STRETCHER. STACEY RODRIGUEZ, AT THE BEDSIDE TO HELP MOVE PATIENT OVER TO CT TABLE.
--- NOTE | 2025-05-21 21:24 | PC.NURSE ---
PATIENT RETURNED FROM CT VIA STRETCHER. MEGGAN SANDS, AT THE BEDSIDE TO PLACE MARTINEZ CATHETER
[2025-05-21 21:29] LABS: Hematocrit 35.7 % (35.0-42.0); Hemoglobin 11.4 g/dL (11.7-13.8); Immature Granulocyte Percent A 0.9 % (0.0-0.0); Lymphocytes Absolute Auto 0.57 K/mm3 (1.10-4.50); Mean Corpuscular HGB Conc 31.9 g/dL (32-36); Mean Corpuscular Hemoglobin 29.3 pg (27.0-31.0); Mean Corpuscular Volume 91.8 fL (78.0-102.0); Nucleated Red Blood Cells Absolute Auto 0.05 K/mm3 (0.00-0.00); Nucleated Red Blood Cells Perc 0.5 % (0-0.0); Platelet Count Result 236 K/mm3 (150-420); Red Blood Count 3.89 M/mm3 (4.20-5.40); White Blood Count 10.3 K/mm3 (4.8-10.8)
[2025-05-21 21:42] LABS: Alanine Aminotransferase 18 U/L (6-35); Albumin Level 4.0 g/dL (3.5-5.1); Alkaline Phosphatase 114 U/L (38-126); Anion Gap 14 mmol/L (4-12); Aspartate Amino Transferase 38 U/L (14-36); Bilirubin,Total 1.4 mg/dL (0.2-1.3); Blood Urea Nitrogen 56 mg/dL (7-17); Calcium 9.0 mg/dL (8.4-10.2); Carbon Dioxide 25 mmol/L (22-30); Chloride 85 mmol/L (98-107); Creatine Kinase 24 U/L (30-135); Estimated CRCL calculation 25 ml/min; Estimated Glomerular Filt Rate 34; Glucose 136 mg/dL (65-110); Osmolality Calculated 275 mOsm/kg (285-295); Potassium 4.9 mmol/L (3.4-5.0); Sodium 124 mmol/L (137-145); Total Protein 7.5 g/dL (6.3-8.2)
--- NOTE | 2025-05-21 21:43 | PC.NURSE ---
PATIENT WAS INCONTINENT OF STOOL PER STACEY MACKENZIE. PATIENT WAS CLEANED, NEW LINENS AND DEPENDS PLACED AND REPOSITIONED FOR COMFORT. PER STACEY MACKENZIE. GENITALS RED AND SWOLLEN
[2025-05-21 21:52] LABS: NT Pro B Type Natriuretic Pept 25600 pg/mL (19.9-100)
[2025-05-21 21:56] LABS: Troponin I 0.092 ng/mL (0.000-0.034)
[2025-05-21 21:59] LABS: Add Urine Microscopic? YES; Appearance Urine Clear (Clear); Glucose Urine UA Negative (Negative); Leukocyte Esterase Ur Negative LEU/UL (Negative); Nitrate Urine Negative (Negative); Specific Grav Ur 1.015 (1.010-1.020)
--- NOTE | 2025-05-21 22:15 | PC.NURSE ---
PATIENT APPEARS TO BE RESTING. EYES CLOSED. RESP EVEN AND UNLABORED. TRANSPLANT REGISTERED NURSE IN PLACE. CALL LIGHT IN REACH
--- NOTE | 2025-05-21 23:00 | PC.NURSE ---
PATIENT IS RESTING ON STRETCHER. DENIES ANY NEEDS. WARM BLANKET IN PLACE. CALL LIGHT IN REACH.
--- NOTE | 2025-05-21 23:30 | PC.NURSE ---
DR TURPIN SPOKE TO PATIENT ABOUT ADMISSION.
[2025-05-22] VITALS (7 sets, daily range): BP systolic 89–111; BP diastolic 61–76; PULSE 92–95; RESP 11–18; O2SAT 92–99
[2025-05-22] MEDS: FUROSEMIDE INJ 20 MG/2 ML VIAL 10 MG IV PUSH (00:03)
--- NOTE | 2025-05-22 00:23 | PC.NURSE ---
PATIENT RESTING QUIETLY ON STRETCHER. DENIES ANY NEEDS. COVERED PATIENT BACK UP WITH BLANKET. CALL LIGHT IN REACH. CURTAIN LEFT OPEN TO MONITOR PATIENT BETTER. CALL LIGHT IN REACH.
--- NOTE | 2025-05-22 01:00 | PC.NURSE ---
PATIENT RESTING QUIETLY ON STRETCHER. RESP EVEN AND UNLABORED. DENIES ANY NEEDS AT THIS TIME. CALL LIGHT IN REACH
--- NOTE | 2025-05-22 02:00 | PC.NURSE ---
PATIENT RESTING QUIETLY ON STRETCHER. DENIES ANY NEEDS. RESP EVEN AND UNLABORED. CALL LIGHT IN REACH
--- NOTE | 2025-05-25 14:22 | PC.NURSE ---
Preliminary blood culture report; no growth in 24 hours.
--- NOTE | 2025-05-26 13:29 | PC.NURSE ---
preliminary blood cultures x2 reviewed. no growth in 48 hours.
--- NOTE | 2025-05-29 12:53 | PC.NURSE ---
blood culture, no growth, final
== END 2025-05-22 02:47 | disposition short-term general hospital (02) ==
PROVIDERS: Emergency Provider Emergency Medicine; PCP Internal Medicine
DX: I21.4 Non-ST elevation (NSTEMI) myocardial infarction (principal); N18.9 Chronic kidney disease, unspecified; E87.1 Hypo-osmolality and hyponatremia; I95.9 Hypotension, unspecified; E86.0 Dehydration; R53.1 Weakness; E78.5 Hyperlipidemia, unspecified; I25.10 Atherosclerotic heart disease of native coronary artery without angina pectoris; Z79.01 Long term (current) use of anticoagulants; Z79.899 Other long term (current) drug therapy; Z79.891 Long term (current) use of opiate analgesic; Z85.3 Personal history of malignant neoplasm of breast; W01.0XXA Fall on same level from slipping, tripping and stumbling without subsequent striking against object, initial encounter
CPT/HCPCS: 36415; 70450; 71045; 72131; 80053; 81001; 82550; 82948; 83605; 83880; 84484; 85025; 93005; 96361; 96374; 99285; J1938; J7030

== ENCOUNTER 2025-05-27 21:58 | Emergency (ER) | payer MEDICARE, MEDICAID, SELFPAY ==
--- NOTE | ~2025-05-27 | CT_ITS ---
CT HEAD NON-CONTRAST Clinical History: FALL/RIGHT FOREHEAD CONTUSION Comparison: 05/21/2025 Technique: Unenhanced axial images skull base to vertex Coronal, sagittal reformats CT images acquired with automatic exposure control for dose reduction DLP: 681 mGy-cm Findings: Right frontal scalp contusion. Chronic white matter microvascular ischemic changes. Sulci, ventricles: Unremarkable. No intracerebral hemorrhage. No evidence acute territorial infarct. No mass effect, midline shift. Bony calvarium intact. Visualized paranasal sinuses: Clear. Mastoid air cells: Clear. IMPRESSION: 1. No acute intracranial findings. Reviewed, dictated and finalized at location R.
[2025-05-27 22:00] VITALS: BP 99/83; PULSE 100; RESP 20; TEMP 36.5; O2SAT 92
--- NOTE | 2025-05-27 22:31 | ED.FALL ---
HPI - Fall General Chief Complaint: Fall Stated Complaint: FALL, HEAD INJURY Time Seen by Provider: 05/27/25 22:04 Mode of arrival: EMS Limitations: altered mental status, physical limitation, clinical condition and dementia History of Present Illness HPI Narrative: This is an 85-year-old [facility] that [facility] for evaluation as she had a fall and was found floor with a hematoma to the right frontal scalp area, and hematoma to the right flank area. Patient is has a history of dementia recently placed on hospice and currently on morphine and Ativan and all her other medication have been discontinued. Patient does have good range of motion in her upper and lower extremities with no fever chills no shortness of breath no nausea vomiting no diarrhea constipation no abdominal pain. Onset (ago): hour(s) Fall witnessed: yes, by living facility staff Place fall occurred: [facility] Loss of consciousness: unsure Prolonged down time: no Related Data Home Medications ?Medication ?Instructions ?Recorded ?Confirmed ?Last Taken ?Type atorvastatin 10 mg tablet 10 mg PO DAILY 11/13/22 05/21/25 04/03/24 20:00 History montelukast 10 mg tablet 10 mg PO DAILY 11/13/22 05/21/25 04/03/24 20:00 History spironolactone 25 mg tablet 25 mg PO BID 11/13/22 05/21/25 04/04/24 08:00 History aspirin 81 mg tablet 81 mg PO DAILY 11/23/23 05/21/25 04/04/24 08:00 History sacubitril 24 mg-valsartan 26 mg 1 tablet PO BID 11/23/23 05/21/25 04/04/24 08:00 History tablet (Entresto) empagliflozin 10 mg tablet 10 mg PO DAILY 01/25/24 05/21/25 04/04/24 08:00 History (Jardiance) gabapentin 100 mg capsule 300 mg PO BID 04/05/24 05/21/25 04/04/24 17:00 History anastrozole 1 mg tablet 1 mg PO DAILY 08/28/24 05/21/25 Unknown History apixaban 5 mg tablet (Eliquis) 5 mg PO BID 08/28/24 05/21/25 Unknown History duloxetine 30 mg capsule,delayed 30 mg PO BID 08/28/24 05/21/25 Unknown History release sprinkle hydrocodone 5 mg-acetaminophen 325 0.5 tablet PO QAM pain 08/28/24 05/21/25 Unknown History mg tablet acetaminophen 650 mg 650 mg PO Q8H PRN pain 10/01/24 05/21/25 Unknown History tablet,extended release (Tylenol Arthritis Pain) digoxin 125 mcg (0.125 mg) tablet 0.125 mg PO DAILY 10/30/24 05/21/25 Unknown History multivitamin-ferrous 1 tablet PO DAILY 10/30/24 05/21/25 Unknown History fumarate-folic acid 18 mg-400 mcg tablet (Centrum Complete) nitroglycerin 0.4 mg sublingual 0.4 mg sublingual ONCE 10/30/24 05/21/25 Unknown History tablet hydrocodone 5 mg-acetaminophen 325 1 tablet PO QHS 05/21/25 05/21/25 Unknown History mg tablet Allergies Allergy/AdvReac Type Severity Reaction Status Date / Time TARA Inhibitors AdvReac Mild Cough Verified 05/22/25 02:29 Review of Systems Review of Systems: All systems reviewed & are unremarkable except as noted in HPI and below PMFSH Past Medical History Medical History Hyperlipidemia Chronic kidney disease Nonischemic cardiomyopathy Echocardiogram 2014 demonstrate EF 30 35% with severe generalized left globe ventricular systolic dysfunction Hip osteoarthritis 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 Placed due to nonischemic cardiomyopathy and paroxysmal narrow complex arrhythmia H/O mastectomy Family History Family History Father , at age 81 Family history of coronary artery disease Social History Social History Social History: She was for 56 years but has been since approximately 2016. 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 She raised 3 children. Her oldest son of prostate cancer within the last year. Code status: DNR/DNI per patient request and confirmed with prior the records Surrogate decision maker: Son Smoking status: Never smoker Second hand tobacco smoke exposure: No Alcohol intake: never Substance use: never Substance use type: does not use Do You Feel Safe in your Home?: Yes Lack of Transportation: No Lack of Food: Never True Current Housing: I Have Housing Concerned About Future Housing: No Difficulty Paying Gas/Electric Bills: No Difficulty Paying for Meds: No Currently Unemployed: No Education: High School Diploma/GED Difficulty w/ Childcare or Family Care: No Spiritual care concerns: No Exam Const: General: no acute distress Nutritional Appearance: obese Limitations: behavioral limitations and physical limitations HENMT: Head images:  1. Two Ears: external ears normal Face/Nose/Sinus: Normal external nose present Face and sinus: normal facial exam Eyes: Pupils: Equal, round and reactive pupils present EOM: EOMs intact bilaterally Direct Ophthalmoscopy: no photophobia Neck: Neck: normal visual inspection, no lymphadenopathy and no meningeal signs Chest: Chest palpation & inspection: normal inspection of the chest Resp: Effort & Inspection: normal respiratory effort Auscultation: clear to auscultation bilaterally Cardio: Rate: regular rate Rhythm: regular rhythm GI: GI Palp: Yes Soft to palpation Auscultation: normal bowel sounds Back/Spine/Pelvis: Back: no CVA tenderness Skin: Wounds: wounds noted Neuro: General: patient oriented x3, moves all extremities, no meningeal signs and no focal motor deficits Cranial nerves: Yes Nystagmus not present Extrem: Other: hematoma located on the right lower flank area Course Course Emergency Course: medical decision making narrative: Patient was evaluated by myself in the emergency department. History obtained from prior records and from [facility] records. Physical exam performed and witnessed by the nurse Barbi. External records medical were reviewed at this time. CT scan of the brain was performed which showed no acute hemorrhage. Patient evaluated and is at her baseline has a hematoma on the right flank area. Patient recently placed on hospice care and currently on morphine and Ativan. Repeat assessment: Patient with no acute distress. And will [facility] to the [facility] under hosp[facility] care. Vital Signs Vital signs: Vital Signs Temperature 36.5 C 05/27/25 22:00 Pulse Rate 100 05/27/25 22:00 Respiratory Rate 20 05/27/25 22:00 Blood Pressure 99/83 L 05/27/25 22:00 Pulse Oximetry 92 05/27/25 22:00 Oxygen Delivery Room Air 05/27/25 22:00 Temperature 36.5 C 05/27/25 22:00 Pulse Rate 100 05/27/25 22:00 Respiratory Rate 20 05/27/25 22:00 Blood Pressure 99/83 L 05/27/25 22:00 Pulse Oximetry 92 05/27/25 22:00 Oxygen Delivery Room Air 05/27/25 22:00 Critical Care Time Critical Care Time Critical Care Time: No Discharge Plan Discharge Clinical Impression: Hematoma Patient Disposition: NH Shelter/Asst Living Condition: Stable Instructions: Antibiotic Form, Concussion (ED), Head Injury (ED), Hematoma (ED) Additional Instructions: advised patient to continue current medical regimen and under the care of hospice and follow up with primary within the next 3 to 5 days further evaluation and treatment. Patient Language: Pashto Prescriptions: No Action atorvastatin 10 mg Tablet 10 mg PO DAILY spironolactone 25 mg Tablet 25 mg PO BID Rx Instructions: Morning and noon montelukast 10 mg Tablet 10 mg PO DAILY aspirin 81 mg Tablet 81 mg PO DAILY sacubitril-valsartan [Entresto] 24-26 mg tablet 1 tablet PO BID Jardiance 10 mg tablet 10 mg PO DAILY furosemide 40 mg Tablet 40 mg PO BID Qty: 60 0RF hydrocodone-acetaminophen 5-325 mg tablet 1 tablet PO QHS duloxetine 30 mg capsule, delayed rel sprinkle 30 mg PO BID Eliquis 5 mg tablet 5 mg PO BID anastrozole 1 mg tablet 1 mg PO DAILY hydrocodone-acetaminophen 5-325 mg tablet 0.5 tablet PO QAM Rx Instructions: 0.5MG PO Q AM AND AFTERNOON. 5/325MG AT BEDTIME acetaminophen [Tylenol Arthritis Pain] 650 mg tablet extended release 650 mg PO Q8H PRN (Reason: pain) nitroglycerin 0.4 mg tablet, sublingual 0.4 mg sublingual ONCE digoxin 125 mcg (0.125 mg) tablet 0.125 mg PO DAILY Centrum Complete 18-400 mg-mcg tablet 1 tablet PO DAILY gabapentin 100 mg capsule 300 mg PO BID Follow-up/Referrals: Gino Meyer MD [Primary Care Provider, Internal Medicine] Stand Alone Forms: [facility] Discharge
--- NOTE | 2025-05-27 22:42 | PC.NURSE ---
Report called back to MARY LOU Jacobs on pt return back to [place]. [facility] paged for transport back.
[2025-05-27 22:55] VITALS: BP 90/48; PULSE 100; RESP 18; TEMP 36.5; O2SAT 92
== END 2025-05-27 22:55 ==
PROVIDERS: Emergency Provider Emergency Medicine; PCP Internal Medicine
DX: S00.03XA Contusion of scalp, initial encounter (principal); N18.9 Chronic kidney disease, unspecified; E78.5 Hyperlipidemia, unspecified; I25.10 Atherosclerotic heart disease of native coronary artery without angina pectoris; W19.XXXA Unspecified fall, initial encounter
CPT/HCPCS: 70450; 99284